=== PATIENT | female | born 1995 | race Caucasian/White ===

== ENCOUNTER 2021-11-21 15:27 | Outpatient (CLI) | payer OTHER, SELFPAY ==
[2021-11-21 17:06] LABS: Absolute Lymphocyte Count 2.11 X10^3/uL (0.83-4.51); Absolute Neutrophil Count 4.9 X10^3/uL (2.0-7.7); Basophil# 0.04 X10^3/uL; Basophil% 0.5 % (0-1); Eosinophils% 1.3 % (0-5); Hematocrit 40.3 % (37-47); Hemoglobin 13.4 g/dL (12.0-15.0); Lymphocyte # 2.11 X10^3/ul (0.83-4.51); Lymphocyte % 27.2 % (19-41); Mean Corp Hgb Conc 33.3 g/dL (32-36); Mean Corpuscular Hgb 28.6 pg (27.0-32.0); Mean Corpuscular Volume 85.9 fL (81-99); Monocyte# 0.59 X10^3/uL; Monocyte% 7.6 % (0-10); NRBC Flagged by Analyzer 0 % (0-5); Neutrophil # 4.91 X10^3/uL (2.7-7.7); Neutrophil % 63.1 % (47-70); Platelet Count 242 K/mm3 (150-450); RBC Distribution Width CV 12.1 % (11.6-14.6); RBC Distribution Width SD 37.5 fl (35.1-43.9); Red Blood Count 4.69 M/mm3 (4.2-5.4); White Blood Count 7.8 K/mm3 (4.4-11.0)
[2021-11-21 17:30] LABS: Color, Urine Yellow (Yellow); Glucose, Dipstick Normal (Normal); Ketone-Dipstick Negative (Negative); Leukocyte Esterase-Dipstick 500 /ul (Negative); Nitrite-Dipstick Negative (Negative); Occult Blood-Urine Negative /ul (Negative); Protein-Dipstick Negative (Negative); Urine Bilirubin Dipstick Negative (Negative); Urine Clarity Clear (Clear); Urine Urobilinogen Normal (Normal)
[2021-11-21 17:45] LABS: Thyroid Stim Hormone (TSH) 1.38 uIU/mL (0.358-3.74)
[2021-11-21 17:47] LABS: Amphetamine Urine VISTA NEGATIVE (<1000 ng/mL); Barbiturate Urine VISTA NEGATIVE (< 200 ng/mL); Benzodiazepine Urine VISTA NEGATIVE (< 200 ng/mL); Cocaine Urine VISTA NEGATIVE (< 300 ng/mL); Ecstacy Urine VISTA NEGATIVE (< 500 ng/mL); Methadone Urine VISTA NEGATIVE (< 300 ng/mL); PCP Urine VISTA NEGATIVE (< 25 ng/mL); THC Urine VISTA NEGATIVE (< 50 ng/mL); Vista UDS pH Range 7
[2021-11-22 08:46] LABS: HIV - WCH Non-Reactive (Nonreactive); Hepatitis B Surface Antigen Non-Reactive (Nonreactive); Hepatitis C Antibody Non-Reactive (Nonreactive); Rubella IgG Reactive (Nonreactive); Syphilis Antibodies Non-reactive
[2021-11-24 05:08] LABS: Chlamydia By Nucleic Acid AMP Negative (Negative)
[2021-11-24 08:13] LABS: Gonococcus By Nucleic Acid AMP Negative (Negative)
== END 2021-11-21 23:59 | disposition home or self-care (01) ==
LOC: WOBLAB 15:32
PROVIDERS: Visit Provider Obstetrics & Gynecology
DX: Z34.81 Encounter for supervision of other normal pregnancy, first trimester (principal)
CPT/HCPCS: 80307; 81002; 84443; 85025; 86703; 86762; 86780; 86803; 87086; 87088; 87340; 87491; 87591

== ENCOUNTER → 2022-03-27 | Outpatient (CLI) | payer OTHER, SELFPAY ==
[2022-03-27 15:39] LABS: Hematocrit 36.4 % (37-47); Hemoglobin 11.9 g/dL (12.0-15.0); Mean Corp Hgb Conc 32.7 g/dL (32-36); Mean Corpuscular Hgb 29.4 pg (27.0-32.0); Mean Corpuscular Volume 89.9 fL (81-99); Platelet Count 178 K/mm3 (150-450); RBC Distribution Width CV 13.3 % (11.6-14.6); RBC Distribution Width SD 43.7 fl (35.1-43.9); Red Blood Count 4.05 M/mm3 (4.2-5.4); White Blood Count 7.9 K/mm3 (4.4-11.0)
[2022-03-27 16:14] LABS: Glucose Challenge Gest 1H 50g 93 mg/dL (70-140)
== END | disposition home or self-care (01) ==
PROVIDERS: Visit Provider Student in an Organized Health Care Education/Training Program
DX: Z34.83 Encounter for supervision of other normal pregnancy, third trimester (principal)
CPT/HCPCS: 36415; 82950; 85027

== ENCOUNTER 2022-04-23 19:17 | Outpatient (CLI) | payer OTHER, SELFPAY ==
[2022-04-23 19:30] VITALS: TEMP 36.3
[2022-04-23 19:31] VITALS: BP 116/67; PULSE 73
[2022-04-23 19:49] VITALS: BMI 28.1
[2022-04-23] MEDS: Lactated Ringers 1,000 ML 999 ML IV (19:55)
[2022-04-23 20:20] LABS: Color, Urine Yellow (Yellow); Glucose, Dipstick Normal (Normal); Ketone-Dipstick Negative (Negative); Leukocyte Esterase-Dipstick 500 /ul (Negative); Nitrite-Dipstick Negative (Negative); Occult Blood-Urine 10 /ul (Negative); Protein-Dipstick Negative (Negative); Specific Gravity, Urine 1.005 (1.002-1.030); Urine Bilirubin Dipstick Negative (Negative); Urine Clarity Sl. Cloudy (Clear); Urine Urobilinogen Normal (Normal)
--- NOTE | 2022-04-23 20:52 | HP.PCM.OB_ITS ---
History and Physical Date of Admission: 04/23/22 HPI: 26-year-old G2, P1 at 30/6 weeks, PRANAY 06/26/2022 by 9-week ultrasound, presenting with cramping and low back and vaginal pain. Patient states she has been having Merrick Padilal contractions today throughout the day they have not been painful, just noticeable. Around 5 PM this evening patient started having sacral pain and vaginal burning. Worsened with movement. Burning is worse than back pain. Patient took Tylenol for Merrick Padilla around 1 PM, did not help. Denies leaking of fluid, vaginal bleeding. Reports movement. No vaginal discharge or itching. No urinary symptoms aside from increased frequency. Patient states she has been hydrating well today. 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 History of cold sore 2. History of UTI 3. General anxiety disorder Surgical history 1. Endoscopy 2019 2. Tonsillectomy and adenoidectomy Family history: Noncontributory Allergies: No known drug allergies Social history: Negative tobacco/alcohol/drug use Review of system: Negative otherwise stated above Physical exam: Vital signs: BP 116/67, pulse 73 General: Comfortable in bed, no acute distress HEENT: No cephalic/atraumatic Cardiorespiratory: No increased effort, regular heart rate Abdomen: Soft, nontender, gravid Extremities: No edema Cervical exam: Close/thick/high heart rate: 140/mod olman/+accel/no decel Mertzon: occasional UA positive for leukocyte esterase and occult blood. A/P: 26-year-old G2, P1 at 30/6 weeks, PRANAY 06/26/2022 by 9-week ultrasound, presenting with cramping and low back and vaginal pain. ?IV fluid hydrate with 1 L LR bolus, followed by 250 cc/h ? Pain control: Offered to Tylenol dosage versus Flexeril. Patient elects for Flexeril to help back pain as Tylenol did not help prior. ? Cervix is closed and thick. Irregular and rare contraction. Does not appear to be in labor at this time. ? Possible urinary tract infection. With patient's history will treat empirically at this time. Will send urine culture for confirmation. ? Continue to monitor. Will really evaluate 2 hours after Flexeril dose. Will reassess at that time. Likely musculoskeletal pain . However will monitor.
[2022-04-23] MEDS: Lactated Ringers 1,000 ML 250 ML IV (21:15)
[2022-04-23] MEDS: cycloBENZAPRine HCl 10 MG Tablet PO (21:25)
== END 2022-04-23 23:20 | disposition home or self-care (01) ==
LOC: WPOUT 19:21 → WP 19:21
PROVIDERS: Visit Provider Student in an Organized Health Care Education/Training Program
DX: O26.893 Other specified pregnancy related conditions, third trimester (principal); Z3A.30 30 weeks gestation of pregnancy; M54.50 Low back pain, unspecified; R10.2 Pelvic and perineal pain; Z87.440 Personal history of urinary (tract) infections
CPT/HCPCS: 96360; 96361 ×2; 59025; 59050; 81002; 87086; 87088; 99218; J7120; G0378

== ENCOUNTER → 2022-06-04 | Outpatient (CLI) | payer OTHER, SELFPAY | END | disposition home or self-care (01) | PROVIDERS: Visit Provider Student in an Organized Health Care Education/Training Program | DX: Z36.85 Encounter for antenatal screening for Streptococcus B (principal) | CPT/HCPCS: 87077; 87081; 87186 ==

== ENCOUNTER 2022-06-07 10:50 | Outpatient (CLI) | payer OTHER, SELFPAY ==
[2022-06-07] VITALS (32 sets, daily range): BP systolic 117; BP diastolic 69; PULSE 62–111; O2SAT 93–100; BMI 29.5
[2022-06-07] MEDS: Lactated Ringers 1,000 ML 999 ML IV (13:35)
[2022-06-07 13:49] LABS: Hematocrit 34.4 % (37-47); Hemoglobin 11.3 g/dL (12.0-15.0); Mean Corp Hgb Conc 32.8 g/dL (32-36); Mean Corpuscular Hgb 28.4 pg (27.0-32.0); Mean Corpuscular Volume 86.4 fL (81-99); Platelet Count 136 K/mm3 (150-450); RBC Distribution Width CV 13.3 % (11.6-14.6); RBC Distribution Width SD 41.1 fl (35.1-43.9); Red Blood Count 3.98 M/mm3 (4.2-5.4); White Blood Count 8.8 K/mm3 (4.4-11.0)
[2022-06-07] MEDS: Lactated Ringers 1,000 ML 150 ML IV (14:38)
[2022-06-07 16:07] LABS: ROM Internal Control Test YES-OK TO RESULT pt. (Internal QC); ROM Patient Test Negative (Negative)
--- NOTE | 2022-06-07 18:22 | OB.TRI.HP_ITS ---
HPI - General General Date of Admission: 06/07/22 HPI Narrative CINDY WAKEFIELD, is a 26 F who presents with contractions and leakage of fluid PFSH PFSH Home Medications [id number] 1 mg tablet 1 tab PO DAILY 04/23/22 [History Last Taken 04/22/22 08:00] Abreva 1 tube OTHER DAILY PRN Cold Sores 06/07/22 [History Last Taken Unknown] sertraline 50 mg tablet (Zoloft) 50 mg PO DAILY anxiety 06/07/22 [History Last Taken Unknown] valacyclovir 500 mg tablet 1,000 mg PO BID PRN Cold Sores 06/07/22 [History Last Taken Unknown] Allergy/AdvReac Type Severity Reaction Status Date / Time No Known Allergies Allergy Verified 04/23/22 19:50 NST FHR Rate Baby A Baseline: 150 Variability:: Moderate Accelerations:: 15 x 15 Decelerations:: None NST Reactive:: Yes Uterine Activity:: Few contractions Assessment & Plan (1) : PLAN: Patient with contractions, unchanged cervix. Leakage of fluid, ROM nega tive. IV fluids given. No signs of labor. Okay to discharge home
== END 2022-06-07 16:55 | disposition home or self-care (01) ==
LOC: WPOUT 10:54 → WP 10:54
PROVIDERS: Referring Provider Obstetrics & Gynecology; Visit Provider Obstetrics & Gynecology
DX: O47.9 False labor, unspecified (principal); Z3A.00 Weeks of gestation of pregnancy not specified
CPT/HCPCS: 96360; 96361 ×2; 36415; 59025; 59050; 84112; 85027; 86850; 86900; 86901; 99218; J7120; G0378

== ENCOUNTER 2022-06-09 06:45 | Outpatient (CLI) | payer OTHER, SELFPAY ==
[2022-06-09 06:54] VITALS: TEMP 36.4
[2022-06-09 06:58] VITALS: BP 121/73; PULSE 95
[2022-06-09 07:19] VITALS: BMI 29.5
--- NOTE | 2022-06-09 10:18 | OB.TRI.NOTE ---
HPI - General General Date of Admission: 06/09/22 HPI Narrative CINDY WAKEFIELD, is a 26 F who presents with contractions PFSH PFSH Home Medications [id number] 1 mg tablet 1 tab PO DAILY 04/23/22 [History Last Taken 04/22/22 08:00] Abreva 1 tube OTHER DAILY PRN Cold Sores 06/07/22 [History Last Taken Unknown] sertraline 50 mg tablet (Zoloft) 50 mg PO DAILY anxiety 06/07/22 [History Last Taken Unknown] valacyclovir 500 mg tablet 1,000 mg PO BID PRN Cold Sores 06/07/22 [History Last Taken Unknown] Allergy/AdvReac Type Severity Reaction Status Date / Time No Known Allergies Allergy Verified 06/09/22 07:21 Assessment & Plan (1) : PLAN: Patient with contractions, cervical exam no signs of labor. Patient desires discharge home. Okay to discharge home with precautions
[2022-06-09 18:38] VITALS: PULSE 103; O2SAT 98
== END 2022-06-09 07:50 | disposition home or self-care (01) ==
LOC: WPOUT 06:51 → WP 06:52
PROVIDERS: Referring Provider Student in an Organized Health Care Education/Training Program; Visit Provider Student in an Organized Health Care Education/Training Program
DX: O47.9 False labor, unspecified (principal); Z3A.00 Weeks of gestation of pregnancy not specified
CPT/HCPCS: 99218; G0378

== ENCOUNTER 2022-06-18 00:15 | Outpatient (CLI) | payer OTHER, SELFPAY ==
[2022-06-18 00:36] VITALS: PULSE 93; O2SAT 98
[2022-06-18 00:43] VITALS: BP 101/62; PULSE 86
--- NOTE | 2022-06-19 08:14 | PCM.PN.OB ---
Subjective Subjective Presenting for contractions. No leaking of fluid or vaginal bleeding. movement present. Objective Data Objective Data Vital Signs: Vital Signs Pulse BP Pulse Ox 86 101/62 98 06/18/22 00:43 06/18/22 00:43 06/18/22 00:36 Weight: 73.301 kg NST FHR Rate Baby A Baseline: 125 Variability:: Moderate Accelerations:: 15 x 15 Decelerations:: None NST Reactive:: Yes Assessment & Plan (1) : PLAN: Plan 26-year-old G2, P1 at 38/6 presenting with contractions. Cervix unchanged at 2 cm. NST reactive. Discharged home with labor precautions. Follow-up in office on Saturday.
== END 2022-06-18 03:21 | disposition home or self-care (01) ==
LOC: WPOUT 00:17 → WP 00:17
PROVIDERS: Visit Provider Student in an Organized Health Care Education/Training Program
DX: O47.1 False labor at or after 37 completed weeks of gestation (principal); Z3A.38 38 weeks gestation of pregnancy
CPT/HCPCS: 59025; 59050; 99218; G0378

== ENCOUNTER 2022-06-21 06:55 | Inpatient (IN) | payer OTHER, SELFPAY ==
[2022-06-21] VITALS (43 sets, daily range): BP systolic 105–162; BP diastolic 57–93; PULSE 46–110; TEMP 36.2–36.7; O2SAT 91–100; BMI 29.8
--- NOTE | 2022-06-21 07:21 | HP.PCM.OB_ITS ---
History and Physical Date of Admission: 06/21/22 HPI: 26-year-old G2, P1 at 39/2 weeks, PRANAY 06/26/2022 by first trimester ultrasound, admitted for term induction of labor. Reports contractions. Denies leaking of fluid, vaginal bleeding. Reports movement. Denies headache, vision changes, chest pain or shortness of breath, nausea or vomiting, diarrhea or constipation, fevers or chills. 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 Depression 2. Oral HSV Surgical history: 1. [place] tooth extraction 2017 Medications: 1. Zoloft 2. Valtrex as needed cold sore Social history: Denies tobacco, alcohol, drug use Allergies: Denies Family history: Noncontributory no history of blood clots or bleeding disorders Review of system: Negative otherwise stated above Physical exam: Vitals BP 117/70, HR 71, T 98.1F, O2sat 98%on RA General: No acute distress HEENT: Normal cephalic/atraumatic, PERRLA Cardiorespiratory: No increased effort Abdomen: Soft, nontender, gravid Extremities: Minimal pedal edema Neurologic: Cranial nerves II through XII grossly intact Musculoskeletal: Strength moves all extremities Cervical exam: 3 centimeters in office on Saturday labs: GBS positive O+ blood type HIV negative Hepatitis B/hepatitis C both negative Gonorrhea/chlamydia negative Rubella immune Syphilis negative Admission labs wnl Assessment/plan: 26-year-old G2, P1 at 39/2 weeks, PRANAY 06/26/2022 by first trimester ultrasound, admitted for term induction of labor. complicated by: Depression ?Admit to labor and delivery for induction of labor ? Induction of labor via Pitocin and AROM. ? GBS positive, will treat with penicillin ?epidural at any time if desired
[2022-06-21] MEDS: Lactated Ringers 1,000 ML 50 ML IV (07:30)
[2022-06-21 07:51] LABS: Absolute Lymphocyte Count 1.28 X10^3/uL (0.83-4.51); Absolute Neutrophil Count 4.3 X10^3/uL (2.0-7.7); Basophil# 0.02 X10^3/uL; Basophil% 0.3 % (0-1); Eosinophil# 0.09 X10^3/uL; Eosinophils% 1.4 % (0-5); Hematocrit 33.1 % (37-47); Hemoglobin 10.8 g/dL (12.0-15.0); Lymphocyte # 1.28 X10^3/ul (0.83-4.51); Lymphocyte % 20.5 % (19-41); Mean Corp Hgb Conc 32.6 g/dL (32-36); Mean Corpuscular Hgb 27.8 pg (27.0-32.0); Mean Corpuscular Volume 85.3 fL (81-99); Mean Platelet Vol. 12.7 fl (6.2-12.0); Monocyte# 0.54 X10^3/uL; Monocyte% 8.7 % (0-10); NRBC Flagged by Analyzer 0 % (0-5); Neutrophil # 4.29 X10^3/uL (2.7-7.7); Neutrophil % 68.8 % (47-70); Platelet Count 121 K/mm3 (150-450); RBC Distribution Width CV 13.5 % (11.6-14.6); RBC Distribution Width SD 40.7 fl (35.1-43.9); Red Blood Count 3.88 M/mm3 (4.2-5.4); White Blood Count 6.2 K/mm3 (4.4-11.0)
[2022-06-21] MEDS: Oxytocin 30 units/NS 500 ml 30 UNITS/500 ML IV.SOLN IV (08:38)
[2022-06-21] MEDS: Penicillin G 3,000,000 Units 50 ML 100 UNITS IV ×2 (12:09→16:53)
--- NOTE | 2022-06-21 12:33 | PCM.PN.OB ---
Subjective Subjective Patient feeling some contractions going natural Objective Data Objective Data Vital Signs: Vital Signs Temp Pulse BP Pulse Ox 97.2 F L 62 120/80 99 06/21/22 11:51 06/21/22 11:50 06/21/22 11:50 06/21/22 10:30 Weight: 163 lb Body Mass Index (BMI) 29.8 Intake & Output: Intake and Output for Last 24 Hours 06/19/22 06/20/22 06/21/22 23:59 23:59 23:59 Intake Total 111.4 / 111.4 Balance 111.4 / 111.4 Lab / Micro Data Result Diagrams: 06/21/22 07:25 Labs: Laboratory Results - last 24 hr 06/21/22 07:25: WBC 6.2, RBC 3.88 L, Hgb 10.8 L, Hct 33.1 L, MCV 85.3, MCH 27.8, MCHC 32.6, RDW Std Deviation 40.7, RDW Coeff of Devi 13.5, Plt Count 121 L, MPV 12.7 H, Immature Gran % (Auto) 0.300, Neut % (Auto) 68.8, Lymph % (Auto) 20.5, [place] % (Auto) 8.7, Eos % (Auto) 1.4, Baso % (Auto) 0.3, Absolute Neuts (auto) 4.3, Absolute Lymphs (auto) 1.28, Nucleated RBC % 0 06/21/22 07:25: Blood Type O POSITIVE, Antibody Screen NEGATIVE Micro: Microbiology 06/21/22 07:25 Nasal Secretion SARS-CoV-2 Antigen (Rapid) - Final Physical Exam Const alert, oriented x3, no apparent distress, average body habitus, healthy appearing and well nourished HEENT normocephalic and moist oral mucous membranes Eyes PERRL Neck full ROM Resp normal respiratory effort, no retractions and no use of accessory muscles Narrative: Cervical exam 60/-3. AROM clear fluid Extremity normal to inspection and no clubbing, cyanosis or edema Skin no rashes or lesions noted and no wounds Neuro moves all extremities and no focal motor deficits Psych mental status grossly normal, affect normal, speech normal and activity/motor behavior normal Assessment & Plan (1) : PLAN: Patient seen and examined. AROM clear fluid. Continue to titrate Pitocin
[2022-06-21] MEDS: LACTATED RINGERS 500 ML 999 ML IV (15:42)
[2022-06-21] MEDS: fentaNYL 100 MCG/2 ML Ampul IV (16:14)
[2022-06-21] MEDS: Lactated Ringers 1,000 ML 200 ML IV (16:18)
[2022-06-21] MEDS: fentaNYL-bupivacaine (epidural) 100 ML BAG EPIDURAL (16:52)
[2022-06-21] MEDS: Oxytocin 30 units/NS 500 ml 30 UNITS/500 ML IV.SOLN 334 UNITS IV (17:40)
--- NOTE | 2022-06-21 18:00 | EX.PCM.OBRPT ---
Vaginal Delivery Findings Description of Procedure: Preop diagnosis: Term Postop diagnosis: Term, shoulder dystocia Procedure: Vaginal delivery and resolution of shoulder dystocia Surgeon: Jeremy Diana Anesthesia: Epidural EBL: 250 cc Specimen: Cord gases Complications: See below Findings: Delivery of a viable female , vertex TAI APGARs 7/9. Found to have shoulder dystocia; Victoria attempted, suprapubic pressure attempted, ultimately resolved with Wood's corkscrew. Time interval from diagnosis of shoulder dystocia to complete shoulder delivery was 15 seconds. No perineal lacerations noted. seen and examined could move both upper extremities after delivery. No palpable clavicular or humerus fractures. Procedure: After head spontaneous delivered with maternal pushing initial gentle traction was used to deliver anterior shoulder (left shoulder) with no success. Shoulder dystocia was immediately diagnosed. Medical team and patient were notified of diagnosis including angle furnaceman. Assist for help was called to the room. Patient's lower extremities were placed in a hyperflexed and abducted position with 1 nurse on each side holding the legs(Victoria). Patient was instructed to give strong pushing after with contractions. Gentle traction on head applying suprapubic pressure on the shoulder attempting to dislodge the shoulder from the pubic symphysis. With no success the maneuver was stopped. A decision was made to try vaginal maneuvers. Right hand was inserted into the posterior aspect of the vagina and attempt was made to dislodge the impacted anterior shoulder by rotating the posterior shoulder counterclockwise (Yip maneuver). Anterior shoulder was then delivered without difficulty. Time interval from diagnosis of shoulder dystocia to complete shoulder delivery was 15 seconds. Cord was clamped and cut. The infant was handed off to angle furnaceman. Placenta was delivered via cord traction and fundal massage. Cord gases were collected. IV oxytocin was initiated in order to facilitate uterine contractions. The fundus was felt to be firm following the delivery of the placenta. The cervix, vagina and perineum were thoroughly inspected. No lacerations were noted. The was carefully examined after initial resuscitation, APGARs 7/9. Infant was able to move both arms without apparent weakness. There is no palpable fracture of clavicle or humerus. The patient tolerated the procedure well. The management of shoulder dystocia was reviewed with the patient and her . Complications associated with shoulder dystocia including possible future recurrence, were also discussed with them. All questions were answered.
[2022-06-21] MEDS: Acetaminophen 500 MG Tablet 1000 MG PO (19:36)
[2022-06-22] VITALS (11 sets, daily range): BP systolic 105–126; BP diastolic 55–73; PULSE 61–75; RESP 16–18; TEMP 36.3–36.4; O2SAT 97–99
[2022-06-22] MEDS: Acetaminophen 500 MG Tablet 1000 MG PO ×2 (03:48→10:20)
[2022-06-22] MEDS: Ibuprofen 600 MG Tablet PO (08:15)
[2022-06-22] MEDS: Sertraline 50 MG Tablet PO (08:16)
--- NOTE | 2022-06-22 08:27 | DCINST_ITS ---
Discharge Instructions Diet Discharge Diet: No restrictions Activity Discharge Activity: Return to Normal Activity, May Drive and May Shower May resume sexual activity in: 4-6 weeks Weight Bearing Status: Weight bearing as tolerated Dressing / Incision Call your doctor if your incision/area has: Continuous Slow Oozing and Foul Smelling Discharge Call your doctor if you observe: Fever of 101 or Higher, Shortness of breath and Chest pain Follow Up Care Please Follow Up With: Jeremy Diana MD When: 4 to 6 weeks Test Results: Test results from this visit will be discussed in further detail at your follow- up appointment, if applicable. Discharge Plan Admission Admit Date/Time: 06/21/22 06:55 Attending Provider: Jeremy Diana Primary Care Provider: DEBBIE MULLIGAN Discharge Orders/Prescriptions Prescriptions: No Action 1 mg Tablet 1 tab PO DAILY sertraline [Zoloft] 50 mg Tablet 50 mg PO DAILY Abreva 1 tube OTHER DAILY PRN (Reason: Cold Sores) valacyclovir 500 mg Tablet 1,000 mg PO BID PRN (Reason: Cold Sores) Referrals / Follow Up: DEBBIE MULLIGAN [Other] Disposition Discharge Orders: Discharge Patient (Routine); Ordered 06/22/22 Ordered By: Dr. Jeremy Diana
--- NOTE | 2022-06-22 08:27 | PCM.PN.OB ---
Subjective Subjective No overnight complaints. Pain well controlled Objective Data Objective Data Vital Signs: Vital Signs Temp Pulse Resp BP Pulse Ox O2 Del Method 97.5 F L 75 16 124/73 H 98 Room Air 06/22/22 07:45 06/22/22 07:51 06/22/22 07:45 06/22/22 07:46 06/22/22 07:51 06/22/22 07:55 Oxygen Delivery Method Room Air Weight: 163 lb Body Mass Index (BMI) 29.8 Intake & Output: Intake and Output for Last 24 Hours 06/20/22 06/21/22 06/22/22 23:59 23:59 23:59 Intake Total 1945. Balance Lab / Micro Data Result Diagrams: 06/21/22 07:25 Labs: Laboratory Results - last 24 hr 06/21/22 07:25: Blood Type O POSITIVE, Antibody Screen NEGATIVE Micro: Microbiology 06/21/22 07:25 Nasal Secretion SARS-CoV-2 Antigen (Rapid) - Final Physical Exam Const alert, oriented x3, no apparent distress, average body habitus, healthy appearing and well nourished HEENT normocephalic and moist oral mucous membranes Eyes PERRL Neck full ROM Resp normal respiratory effort, no retractions and no use of accessory muscles GI GI Narrative: Soft, nontender, uterus firm and below umbilicus Extremity normal to inspection, full ROM and no clubbing, cyanosis or edema Neuro moves all extremities, no focal motor deficits and no sensory deficits noted Psych mental status grossly normal, affect normal, speech normal and activity/motor behavior normal Assessment & Plan (1) Vaginal delivery: PLAN: day 1. Breast-feeding. Pain well controlled. Desires discharge home, if okay with medical front desk coordinator okay to discharge home today
--- NOTE | 2022-06-22 15:42 | NURSING ---
student charting reviewed by STEFANI Galarza, instructor
--- NOTE | 2022-06-22 16:45 | CASEMGMT ---
SW Note Referral Source: [facility] SW Referral Reason: History of Depression SW met with RN Светлана. She voiced no concerns regarding the nb and MOB/FOB. SW introduced self and role to MOB and FOB. MOB gave consent for FOB to be in the room during the interview. NB was in the bassinet sleeping. MOB appeared bonded to the nb. 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 [place] came into the [facility] to meet the nb. Housing: MOB, FOEvaristo and their 2 children reside in a house in [facility]. FOB and MOB's father and brother farm together. Transportation:MATTEO voices that she has access and availability to transportation Supplies: MATTEO reports she has a bedside sleeper, crib, carseat, diapers and clothes for the nb. Supports: MATTEO said that her primary support is the FOB. MOB said that her parents reside 1 mile away. FOB parents reside 20 minutes away and MATTEO's siblings are local. Education: MATTEO graduated from high school. Bachelors Degree in Nursing from [employer]. 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 MOB stated that she plans to take 11 weeks off. MATTEO said that while she works the FOB or her mother will care for the nb and older child, Suyapa. 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 Agency Involvement: Patient reports no JFS, WIC, HMG, Legal or CSB involvement. Patient said that she previously has been at [facility] in the past for counseling. FOB: [place] Time Together: 5 years Involved with the NB: yes FOEvaristo is employed as a st with MATTEO's father and brother FOEvaristo has another child, Suyapa, with MOB FOB denied any MH/AOD/Domestic Violence history Maternal Mental Health History: MATTEO reports that 6 months after her older child was born she was feeling down and went to counseling and that was helpful to her but they decided she needed medication. MATTEO has been on Zoloft during the and reports it does well to assist her symptoms. MATTEO said Dr. Sadie Diana prescribes her medication. MOB reports no past SI/HI or current SI/HI. MOB reports no past psych hospitalization. MOB's chart notes patient reported to RN no history of SI/HI or DV and patient's PHQ9 score was 0. MOB plans to continue to take Zoloft. She also advised that she could benefit from counseling again but it is difficult with time. MOB feels comfortable with counselor and SW acknowledged that it is good that MOB feels comfortable to go back to counseling when needed. MOB and FOB were educated on PPD. MOB and FOB educated on Shaken Baby Syndrome and Back to sleep. Per chart MOB has no past or current drug, alcohol or tobacco use. SW provided MOB with resources on post depression support. MOB and FOB inquired about WIC and SW made on line referral for WIC. MATTEO reports that her first delivery was traumatic as she had the nb at [facility] in [place] and they did not have policies and procedures in place. MOB voiced that this delivery has been positive. Plan: Home at discharge. Referral to WIC made. Shweta CHARLES
== END 2022-06-22 19:00 | disposition home or self-care (01) | DRG 806 ==
PROVIDERS: Student in an Organized Health Care Education/Training Program; Admitting Provider Obstetrics & Gynecology; Referring Provider Obstetrics & Gynecology; Visit Provider Obstetrics & Gynecology
DX: O66.0 Obstructed labor due to shoulder dystocia (principal); Z37.0 Single live birth; O98.82 Other maternal infectious and parasitic diseases complicating childbirth; O99.344 Other mental disorders complicating childbirth; F32.A Depression, unspecified; Z3A.39 39 weeks gestation of pregnancy; B95.1 Streptococcus, group B, as the cause of diseases classified elsewhere
CPT/HCPCS: 59025; 59050; 85025; 86850; 86900; 86901; 87426; 99218; J7120; G0378

== ENCOUNTER → 2022-08-01 | Outpatient (CLI) | payer OTHER, SELFPAY ==
[2022-08-01 12:42] LABS: T4 Free Direct 0.84 ng/dL (0.76-1.46); Thyroid Stim Hormone (TSH) 1.19 uIU/mL (0.358-3.74)
== END | disposition home or self-care (01) ==
PROVIDERS: Visit Provider Student in an Organized Health Care Education/Training Program
DX: Z39.2 Encounter for routine postpartum follow-up (principal)
CPT/HCPCS: 36415; 84439; 84443

== ENCOUNTER → 2023-06-24 | Outpatient (CLI) | payer BC, SELFPAY ==
[2023-06-24 09:51] LABS: Absolute Lymphocyte Count 1.76 X10^3/uL (0.83-4.51); Absolute Neutrophil Count 3.7 X10^3/uL (2.0-7.7); Basophil# 0.04 X10^3/uL; Basophil% 0.7 % (0-1); Eosinophil# 0.16 X10^3/uL; Eosinophils% 2.6 % (0-5); Hematocrit 37.7 % (37-47); Hemoglobin 12.3 g/dL (12.0-15.0); Lymphocyte # 1.76 X10^3/ul (0.83-4.51); Mean Corp Hgb Conc 32.6 g/dL (32-36); Mean Corpuscular Hgb 28.5 pg (27.0-32.0); Mean Corpuscular Volume 87.3 fL (81-99); Mean Platelet Vol. 10.3 fl (6.2-12.0); Monocyte% 6.6 % (0-10); NRBC Flagged by Analyzer 0 % (0-5); Neutrophil # 3.67 X10^3/uL (2.7-7.7); Neutrophil % 60.6 % (47-70); Platelet Count 219 K/mm3 (150-450); RBC Distribution Width CV 12.5 % (11.6-14.6); RBC Distribution Width SD 39.6 fl (35.1-43.9); Red Blood Count 4.32 M/mm3 (4.2-5.4); White Blood Count 6.1 K/mm3 (4.4-11.0)
[2023-06-24 10:51] LABS: HIV - WCH Non-Reactive (Nonreactive); Hepatitis B Surface Antigen Non-Reactive (Nonreactive); Hepatitis C Antibody Non-Reactive (Nonreactive); Rubella IgG Reactive (Nonreactive); Syphilis Antibodies Non-reactive
[2023-06-25 21:07] LABS: Chlamydia By Nucleic Acid AMP Negative (Negative); Gonococcus By Nucleic Acid AMP Negative (Negative)
[2023-06-28 16:42] LABS: HPV Reflexed? NOT INDICATED
== END | disposition home or self-care (01) ==
PROVIDERS: Referring Provider Obstetrics & Gynecology; Visit Provider Obstetrics & Gynecology
DX: Z34.90 Encounter for supervision of normal pregnancy, unspecified, unspecified trimester (principal)
CPT/HCPCS: 36415; 85025; 86703; 86762; 86780; 86803; 86850; 86900; 86901; 87086; 87340; 87491; 87591; 88175; G0145

== ENCOUNTER → 2023-09-11 | Outpatient (CLI) | payer BC, SELFPAY ==
--- NOTE | 2023-09-11 14:28 | US_ITS ---
EXAM: US SECOND OR THIRD TRIMESTER , TRANSABDOMINAL CLINICAL INDICATION: anatomy scan TECHNIQUE: Transabdominal obstetrical ultrasound of the maternal pelvis and a second or third trimester with image documentation. COMPARISON: No relevant prior studies available. FINDINGS: FETUS: Single intrauterine gestation. HEART RATE: 152 bpm. PRESENTATION: Cephalic presentation. PLACENTA: Placenta is anterior without placenta previa. AMNIOTIC FLUID: Amniotic fluid volume qualitatively appears normal. Deepest vertical pocket is 5.2 cm. ANATOMY: The lateral ventricles, choroid plexus, cerebellum, cisterna magna, face/nose/lips, four-chamber heart, diaphragm, stomach, abdominal wall, cord insertion, three-vessel cord, kidneys, bladder, entire spine, and extremities were visualized and appeared unremarkable. BIOMETRICS GESTATIONAL AGE: Composite gestational age is 19 weeks 3 days. PRANAY: 01/25/2024. EFW: Estimated weight is 292 g. BPD: 19 weeks 2 days. HC: 19 weeks 2 days. AC: 19 weeks 4 days. FL: 19 weeks 2 days. MATERNAL: UTERUS: Unremarkable. No myometrial mass. CERVIX: Unremarkable as visualized. The cervix is closed. ADNEXA: Unremarkable. No adnexal masses. FREE FLUID: None. OTHER FINDINGS: CI is 75% which is normal. FL/AC ratio is 21% which is normal. HC/AC is 1.17 which is normal. US/OB Anatomy Scan IMPRESSION: Single live intrauterine at 19 weeks and 3 days. No specific abnormality identified. Electronically Signed: Parmjit Roy MD at 23:30 [facility] ,
== END | disposition home or self-care (01) ==
PROVIDERS: Referring Provider Advanced Practice Midwife; Visit Provider Advanced Practice Midwife
DX: O09.90 Supervision of high risk pregnancy, unspecified, unspecified trimester (principal); Z3A.00 Weeks of gestation of pregnancy not specified
CPT/HCPCS: 76805

== ENCOUNTER → 2023-10-17 | Outpatient (CLI) | payer MEDICAID, SELFPAY ==
--- OUTSIDE RECORDS SUMMARY | 2023-10-17 09:33 | XMS RPT_ITS | CCD ---
Author Name Unknown Address [facility] [address] [place] [address] Organization [facility] Care Team Providers Care Cylinder Worker Name Role Phone Mady Farrell Primary Care Provider LIZET THOMAS Attending Unavailable MADY FARRELL Primary Care Unavailable MADY FARRELL Attending Unavailable MADY FARRELL Primary Care Unavailable DANIELA MATHIS Attending Unavailable Love Barnhart Attending Unavailable Love Barnhart Admitting Unavailable No Doctor Assigned, Nodr Primary Care Unavail able No Doctor Assigned, Nodr Primary Care Unavail able Love Barnhart Consulting Unavailable Bo Weir Admitting Unavailable Bo Weir Attending Unavailable Parmjit Enrique Primary Care Provider Parmjit Enrique Primary Care Provider Parmjit Enrique MD Primary Care Provider Parmjit Enrique MD Primary Care Provider [phone] Allergies Allergy Classification Reported Allergen(s) Allergy Type Date of Onset Reaction(s) Facility (1 source) No Known Medication Allergies; Translations: [No Known Medication Allergies] Propensity to adverse reactions to drug (disorder) [facility] Repository Medications Current Medications Medication Drug Class(es) Dates Sig (Normalized) Sig (Original) acetaminophen 325 mg oral tablet (20 sources) Start: 11-24-2020 acetaminophen (TYLENOL) tablet 650 mg Completed/Discontinued Medications Medication Drug Class(es) Dates Sig (Normalized) Sig (Original) acetaminophen 325 mg / HYDROcodone bitartrate 5 mg oral tablet (6 sources) Opioid Agonist Start: 04-28-2020 End: 06-30-2020 take 1-2 tablets by mouth every four hours as needed hydroCODone-acetami nophen 5-325 MG tablet Indications: Post-op pain Take 1-2 tablets by mouth every 4 hours as needed for up to 7 days. 25 tablet 0 04/28/2020 06/30/2020 Discontinued (Therapy completed) Problems Active Problems Problem Classification Problem Date Documented Da te Episodic/Chronic Abdominal pain (1 source) Epigastric pain; Translations: [Epigastric pain] Onset: 12-15-2018 Episodic Anxiety disorders (11 sources) Anxiety; Translations: [Anxiety disorder, unspecified] Onset: 02-02-2021 Chronic Coagulation and hemorrhagic disorders (2 sources) Blood coagulation disorder; 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] Onset: 06-14-2020 06-14-2020 Chronic distress and abnormal forces of labor (1 source) Finding of uterine contractions; Translations: [Other uterine inertia] Episodic Genitourinary symptoms and ill-defined conditions (1 source) Dysuria; Translations: [Dysuria] Episodic Headache; including migraine (1 source) Status migrainosus; Translations: [Migraine with status migrainosus, not intractable, unspecified migraine type] Chronic Headache; including migraine (1 source) Headache; Translations: [ headache in third trimester] Episodic Malposition; malpresentation (2 sources) Uncertain lie; Translations: [Maternal care for unstable lie, not applicable or unspecified] Episodic Menstrual disorders (1 source) Missed period; Translations: [Missed period] Chronic Mood disorders (1 source) Dysthymia; Translations: [Dysthymic disorder] Chronic Other complications of (2 sources) High risk ; Translations: [High-risk , young primigravida in third trimester] Episodic Other complications of (2 sources) Anxiety in ; Translations: [Anxiety in , antepartum] Other connective tissue disease (1 source) Ganglion cyst; Translations: [Ganglion cyst] Episodic Other connective tissue disease (3 sources) Ganglion cyst of right wrist; Translations: [Ganglion cyst of wrist, right] Other infections; including parasitic (1 source) H/O: viral illness; Translations: [Hx of cold sores] Episodic Other nervous system disorders (1 source) Postoperative pain ; Translations: [Post-op pain] Episodic Other nervous system disorders (1 source) H/O: migraine; Translations: [H/O migraine during ] Episodic Other and delivery including normal (8 sources) Normal ; Translations: [Encounter for supervision of normal first , third trimester] Onset: 02-12-2021 Episodic Other skin disorders (1 source) Alopecia; Translations: [Alopecia] Episodic Other upper respiratory disease (2 sources) Deviated nasal septum; Translations: [Nasal septal deviation] Onset: 08-21-2018 08-21-2018 Episodic Residual codes; unclassified (1 source) Past history of procedure; Translations: [S/P excision of ganglion cyst] Episodic Residual codes; unclassified (2 sources) Gestation period, 10 weeks; Translations: [10 weeks gestation of ] Episodic Residual codes; unclassified (1 source) Gestation period, 6 weeks; Translations: [6 weeks gestation of ] Episodic Residual codes; unclassified (1 source) Gestation period, 11 weeks; Translations: [11 weeks gestation of ] Episodic Residual codes; unclassified (2 sources) Gestation period, 20 weeks; Translations: [20 weeks gestation of ] Episodic Residual codes; unclassified (2 sources) Gestation period, 28 weeks; Translations: [28 weeks gestation of ] Episodic Residual codes; unclassified (1 source) Gestation period, 30 weeks; Translations: [30 weeks gestation of ] Episodic Residual codes; unclassified (1 source) Gestation period, 23 weeks; Translations: [23 weeks gestation of ] Episodic Residual codes; unclassified (1 source) Gestation period, 36 weeks; Translations: [36 weeks gestation of ] Episodic Residual codes; unclassified (1 source) Gestation period, 37 weeks; Translations: [37 weeks gestation of ] Episodic Residual codes; unclassified (1 source) Gestation period, 16 weeks; Translations: [16 weeks gestation of ] Unclassified (6 sources) Patient encounter status; Translations: [Well adult exam] Onset: 08-21-2018 08-21-2018 Unclassified (1 source) Cancer cervix screening status; Translations: [Screening for cervical cancer] Past or Other Problems Problem Classification Problem Date Documented Date Episodic/Chronic Contraceptive and procreative management (1 source) Oral contraception; Translations: [Encounter for surveillance of contraceptive pills] Episodic Other complications of (8 sources) Streptococcus agalactiae infection; Translations: [Other maternal infectious and parasitic diseases complicating , unspecified trimester] Onset: 02-02-2021 Resolved: 03-27-2021 1 Episodic Other upper respiratory disease (2 sources) Deviated nasal septum; Translations: [Deviated nasal septum] Onset: 08-21-2018 Episodic Residual codes; unclassified (20 sources) Family history of diseases of the blood and blood-forming organs and certain disorders involving the immune mechanism; Translations: [Family history of blood coagulation disorder] Onset: 06-24-2020 06-24-2020 Episodic Skin and subcutaneous tissue infections (4 sources) Impetigo; Translations: [Impetigo, unspecified] Onset: 08-21-2018 08-21-2018 Episodic Viral infection (4 sources) Herpesviral gingivostomatitis and pharyngotonsillitis; Translations: [Oral herpes simplex infection] Onset: 08-21-2018 08-21-2018 Episodic Results Test Name Value Interpretation Reference Range Facil ity Vital Signs Date Time Vital Sign Value Performing Clinician Facility 08-24-2021 10:51-0500 Body height 157.5 cm Parmjit Enrique MD Work Phone: [facility] 08-24-2021 10:51-0500 Body mass index (BMI) [Ratio] 26.08 kg/m2 Parmjit Enrique MD Work Phone: [facility] 08-24-2021 10:51-0500 Body temperature 97.11 [degF] Parmjit Enrique MD Work Phone: [facility] 08-24-2021 10:51-0500 Body weight 64.68 kg Parmjit Enrique MD Work Phone: [facility] 08-24-2021 10:51-0500 Diastolic blood pressure 62 mm[Hg] Parmjit Enrique MD Work Phone: [facility] 08-24-2021 10:51-0500 Heart rate 98 /min Parmjit Enrique MD Work Phone: [facility] 08-24-2021 10:51-0500 SaO2% (BldA) [Mass fraction] 98 % Parmjit Enrique MD Work Phone: [facility] 08-24-2021 10:51-0500 Systolic blood pressure 114 mm[Hg] Parmjit Enrique MD Work Phone: [facility] 02-26-2021 23:03-0400 Diastolic blood pressure 60 mm[Hg] Sagar Rodriguez MD Work Phone: [facility] 02-26-2021 23:03-0400 Heart rate 84 /min Sagar Rodriguez MD Work Phone: [facility] 02-26-2021 23:03-0400 Respiratory rate 18 /min Sagar Rodriguez MD Work Phone: [facility] 02-26-2021 23:03-0400 SaO2% (BldA) [Mass fraction] 98 % Sagar Rodriguez MD Work Phone: [facility] 02-26-2021 23:03-0400 Systolic blood pressure 110 mm[Hg] Sagar Rodriguez MD Work Phone: [facility] 02-26-2021 21:46-0400 Body height 157.5 cm Sagar Rodriguez MD Work Phone: [facility] 02-26-2021 21:46-0400 Body mass index (BMI) [Ratio] 25.4 kg/m2 Sagar Rodriguez MD Work Phone: [facility] 02-26-2021 21:46-0400 Body weight 63 kg Sagar Rodriguez MD Work Phone: [facility] 02-26-2021 21:45-0400 Body temperature 99.7 [degF] Sagar Rodriguez MD Work Phone: [facility] 02-08-2021 23:05-0400 Heart rate 104 /min Nehal Flower MD Work Phone: [facility] 02-08-2021 23:05-0400 SaO2% (BldA) [Mass fraction] 97 % Nehal Flower MD Work Phone: [facility] 02-08-2021 22:48-0400 Body temperature 98.6 [degF] Nehal Flower MD Work Phone: [facility] 02-08-2021 22:48-0400 Diastolic blood pressure 69 mm[Hg] Nehal Flower MD Work Phone: [facility] 02-08-2021 22:48-0400 Respiratory rate 16 /min Nehal Flower MD Work Phone: [facility] 02-08-2021 22:48-0400 Systolic blood pressure 110 mm[Hg] Nehal Flower MD Work Phone: [facility] 02-07-2021 10:06-0400 Body height 157.5 cm Mady Amor MD Work Phone: [facility] 02-07-2021 10:06-0400 Body mass index (BMI) [Ratio] 29.37 kg/m2 Mady Amor MD Work Phone: [facility] 02-07-2021 10:06-0400 Body temperature 98.2 [degF] Mady Amor MD Work Phone: [facility] 02-07-2021 10:06-0400 Body weight 72.85 kg Mady Amor MD Work Phone: [facility] 02-07-2021 10:06-0400 Diastolic blood pressure 72 mm[Hg] Mady Amor MD Work Phone: [facility] 02-07-2021 10:06-0400 Systolic blood pressure 112 mm[Hg] Mady Amor MD Work Phone: [facility] 02-06-2021 23:29-0400 Body temperature 96.6 [degF] Nehal Flower MD Work Phone: [facility] 02-06-2021 23:29-0400 Diastolic blood pressure 67 mm[Hg] Nehal Flower MD Work Phone: [facility] 02-06-2021 23:29-0400 Heart rate 83 /min Nehal Flower MD Work Phone: [facility] 02-06-2021 23:29-0400 Respiratory rate 16 /min Nehal Flower MD Work Phone: [facility] 02-06-2021 23:29-0400 SaO2% (BldA) [Mass fraction] 98 % Nehal Flower MD Work Phone: [facility] 02-06-2021 23:29-0400 Systolic blood pressure 117 mm[Hg] Nehal Flower MD Work Phone: [facility] 02-06-2021 22:15-0400 Body height 157.5 cm Nehal Flower MD Work Phone: [facility] 02-06-2021 22:15-0400 Body mass index (BMI) [Ratio] 29.15 kg/m2 Nehal Flower MD Work Phone: [facility] 02-06-2021 22:15-0400 Body weight 72.3 kg Nehal Flower MD Work Phone: [facility] 02-02-2021 13:21-0400 Body height 157.5 cm Rosita Chacon APRN-ATIYA Work Phone: [facility] 02-02-2021 13:21-0400 Body mass index (BMI) [Ratio] 29.26 kg/m2 Rosita Chacon APRN-ATIYA Work Phone: [facility] 02-02-2021 13:21-0400 Body temperature 97.5 [degF] Rosita Chacno APRN-ATIYA Work Phone: [facility] 02-02-2021 13:21-0400 Body weight 72.58 kg Rosita Chacon APRN-ATIYA Work Phone: [facility] 02-02-2021 13:21-0400 Diastolic blood pressure 64 mm[Hg] Rosita Chacon APRN-ATIYA Work Phone: [facility] 02-02-2021 13:21-0400 Systolic blood pressure 118 mm[Hg] Rosita Chacon APRN-ATIYA Work Phone: [facility] 01-26-2021 08:21-0400 Body height 157.5 cm Mady Amor MD Work Phone: [facility] 01-26-2021 08:21-0400 Body mass index (BMI) [Ratio] 29.45 kg/m2 Mady Amor MD Work Phone: [facility] 01-26-2021 08:21-0400 Body temperature 97.5 [degF] Mady Amor MD Work Phone: [facility] 01-26-2021 08:21-0400 Body weight 73.03 kg Mady Amor MD Work Phone: [facility] 01-26-2021 08:21-0400 Diastolic blood pressure 66 mm[Hg] Mady Amor MD Work Phone: [facility] 01-26-2021 08:21-0400 Systolic blood pressure 110 mm[Hg] Mady Amor MD Work Phone: [facility] 01-12-2021 08:43-0400 BMI (Body Mass Index) 28.31 kg/m2 [facility] 01-12-2021 08:43-0400 Body Temperature 98.1 [degF] [facility] 01-12-2021 08:43-0400 Body weight 70.22 kg [facility] 01-12-2021 08:43-0400 BP Diastolic 62 mm[Hg] [facility] 01-12-2021 08:43-0400 BP Systolic 120 mm[Hg] [facility] 01-12-2021 08:43-0400 Height 157.5 cm [facility] 12-26-2020 13:18-0400 BMI (Body Mass Index) 27.51 kg/m2 [facility] 12-26-2020 13:18-0400 Body Temperature 98.4 [degF] [facility] [employer] [facility] 12-26-2020 13:18-0400 Body weight 68.22 kg [facility] 12-26-2020 13:18-0400 BP Diastolic 62 mm[Hg] [facility] 12-26-2020 13:18-0400 BP Systolic 120 mm[Hg] [facility] 12-26-2020 13:18-0400 Height 157.5 cm [facility] 12-12-2020 08:56-0500 BMI (Body Mass Index) 27.44 kg/m2 [facility] 12-12-2020 08:56-0500 Body Temperature 97.39 [degF] [facility] 12-12-2020 08:56-0500 Body weight 68.04 kg [facility] 12-12-2020 08:56-0500 BP Diastolic 60 mm[Hg] [facility] 12-12-2020 08:56-0500 BP Systolic 100 mm[Hg] [facility] 12-12-2020 08:56-0500 Height 157.5 cm [facility] 11-28-2020 08:18-0500 BMI (Body Mass Index) 27.07 kg/m2 [facility] 11-28-2020 08:18-0500 Body Temperature 96.6 [degF] [facility] 11-28-2020 08:18-0500 Body weight 67.13 kg [facility] 11-28-2020 08:18-0500 BP Diastolic 64 mm[Hg] [facility] 11-28-2020 08:18-0500 BP Systolic 110 mm[Hg] [facility] 11-28-2020 08:18-0500 Height 157.5 cm [facility] 11-24-2020 23:45-0500 BP Diastolic 52 mm[Hg] [facility] 11-24-2020 23:45-0500 BP Systolic 105 mm[Hg] [facility] 11-24-2020 23:45-0500 Pulse (Heart Rate) 79 /min [facility] 11-24-2020 23:45-0500 Pulse Oximetry 96 % [facility] 11-24-2020 21:39-0500 Body Temperature 98.2 [degF] [facility] 11-24-2020 21:39-0500 Height 157.5 cm [facility] 11-24-2020 21:39-0500 Respiratory Rate 18 /min [facility] 10-24-2020 10:31-0500 BMI (Body Mass Index) 25.79 kg/m2 [facility] 10-24-2020 10:31-0500 Body Temperature 97.3 [degF] [facility] 10-24-2020 10:31-0500 Body weight 63.96 kg [facility] 10-24-2020 10:31-0500 BP Diastolic 70 mm[Hg] [facility] 10-24-2020 10:31-0500 BP Systolic 104 mm[Hg] [facility] 10-24-2020 10:31-0500 Height 157.5 cm [facility] 10-03-2020 09:54-0500 BMI (Body Mass Index) 25.97 kg/m2 [facility] 10-03-2020 09:54-0500 Body Temperature 96.4 [degF] [facility] 10-03-2020 09:54-0500 Body weight 64.41 kg [facility] 10-03-2020 09:54-0500 BP Diastolic 60 mm[Hg] [facility] 10-03-2020 09:54-0500 BP Systolic 104 mm[Hg] [facility] 10-03-2020 09:54-0500 Height 157.5 cm [facility] 09-05-2020 14:32-0500 BMI (Body Mass Index) 25.24 kg/m2 [facility] 09-05-2020 14:32-0500 Body Temperature 97.39 [degF] [facility] 09-05-2020 14:32-0500 Body weight 62.6 kg [facility] 09-05-2020 14:32-0500 BP Diastolic 58 mm[Hg] [facility] 09-05-2020 14:32-0500 BP Systolic 102 mm[Hg] [facility] 09-05-2020 14:32-0500 Height 157.5 cm [facility] 08-01-2020 07:39-0400 BMI (Body Mass Index) 25.24 kg/m2 [facility] 08-01-2020 07:39-0400 Body Temperature 97 [degF] [facility] 08-01-2020 07:39-0400 Body weight 62.6 kg [facility] 08-01-2020 07:39-0400 BP Diastolic 56 mm[Hg] [facility] 08-01-2020 07:39-0400 BP Systolic 108 mm[Hg] [facility] 08-01-2020 07:39-0400 Height 157.5 cm [facility] 06-30-2020 16:53-0400 Body surface area Derived from formula 1.62 m2 [facility] 06-30-2020 08:03-0400 BMI (Body Mass Index) 24.87 kg/m2 [facility] 06-30-2020 08:03-0400 Body Temperature 97.81 [degF] [facility] 06-30-2020 08:03-0400 Body weight 61.69 kg [facility] 06-30-2020 08:03-0400 BP Diastolic 58 mm[Hg] [facility] 06-30-2020 08:03-0400 BP Systolic 110 mm[Hg] [facility] 06-30-2020 08:03-0400 Height 157.5 cm [facility] 06-24-2020 13:55-0400 BMI (Body Mass Index) 24.69 kg/m2 Av[facility] Myrna Gal [id number] [facility] 06-24-2020 13:55-0400 Body Temperature 98.01 [degF] [facility] Myrna Gal [id number] [facility] 06-24-2020 13:55-0400 Body weight 61.24 kg Avg Myrna Gal [id number] [facility] 06-24-2020 13:55-0400 BP Diastolic 60 mm[Hg] [facility] Myrna Gal [id number] [facility] 06-24-2020 13:55-0400 BP Systolic 100 mm[Hg] Av[facility] Myrna Gal [id number] [facility] 06-24-2020 13:55-0400 Height 157.5 cm Avg Myrna Gal [id number] [facility] 06-14-2020 11:01-0400 BMI (Body Mass Index) 25.06 kg/m2 Av[facility] Myrna Gal [id number] [facility] 06-14-2020 11:01-0400 Body Temperature 99.19 [degF] Avg Myrna Gal [id number] [facility] 06-14-2020 11:01-0400 Body weight 62.14 kg Avg Myrna Gal [id number] [facility] 06-14-2020 11:01-0400 BP Diastolic 58 mm[Hg] Avg Myrna Gal [id number] [facility] 06-14-2020 11:01-0400 BP Systolic 100 mm[Hg] Avg Myrna Gal [id number] [facility] 06-14-2020 11:01-0400 Height 157.5 cm Avg Myrna Gal [id number] [facility] 05-12-2020 10:36-0400 BMI (Body Mass Index) 24.87 kg/m2 [facility] 05-12-2020 10:36-0400 Body Temperature 97.59 [degF] [facility] 05-12-2020 10:36-0400 Body weight 61.69 kg [facility] 05-12-2020 10:36-0400 Height 157.5 cm [facility] 04-28-2020 09:56-0400 BP Diastolic 66 mm[Hg] [facility] 04-28-2020 09:56-0400 BP Systolic 108 mm[Hg] [facility] 04-28-2020 09:56-0400 Pulse (Heart Rate) 70 /min [facility] 04-28-2020 09:56-0400 Pulse Oximetry 99 % [facility] 04-28-2020 09:56-0400 Respiratory Rate 16 /min [facility] 04-28-2020 09:25-0400 Body Temperature 98.1 [degF] [facility] 04-28-2020 06:31-0400 BMI (Body Mass Index) 24.87 kg/m2 [facility] 04-28-2020 06:31-0400 Body weight 61.69 kg [facility] 04-28-2020 06:31-0400 Height 157.5 cm [facility] 04-07-2020 15:32-0400 BMI (Body Mass Index) 24.95 kg/m2 [facility] 04-07-2020 15:32-0400 Body Temperature 98.1 [degF] [facility] 04-07-2020 15:32-0400 Body weight 61.87 kg [facility] 04-07-2020 15:32-0400 Height 157.5 cm [facility] 03-10-2020 10:09-0400 BMI (Body Mass Index) 25.42 kg/m2 [facility] 03-10-2020 10:09-0400 Body Temperature 97.11 [degF] [facility] 03-10-2020 10:09-0400 Body weight 63.05 kg [facility] 03-10-2020 10:09-0400 Height 157.5 cm [facility] 02-04-2020 09:50-0400 BMI (Body Mass Index) 25.02 kg/m2 [facility] 02-04-2020 09:50-0400 Body Temperature 99.1 [degF] [facility] 02-04-2020 09:50-0400 Body weight 62.05 kg [facility] 02-04-2020 09:50-0400 BP Diastolic 62 mm[Hg] Pramjit [facility] 02-04-2020 09:50-0400 BP Systolic 116 mm[Hg] Parmjit [facility] 02-04-2020 09:50-0400 Height 157.5 cm [facility] 02-04-2020 09:50-0400 Pulse (Heart Rate) 69 /min [facility] 02-04-2020 09:50-0400 Pulse Oximetry 99 % [facility] 02-01-2020 10:50-0400 BMI (Body Mass Index) 24.69 kg/m2 [facility] 02-01-2020 10:50-0400 Body Temperature 98.4 [degF] [facility] 02-01-2020 10:50-0400 Body weight 61.24 kg [facility] 02-01-2020 10:50-0400 BP Diastolic 68 mm[Hg] [facility] 02-01-2020 10:50-0400 BP Systolic 106 mm[Hg] [facility] 02-01-2020 10:50-0400 Height 157.5 cm [facility] 08-21-2018 12:49-0500 BMI (Body Mass Index) 22.86 kg/m2 [facility] 08-21-2018 12:49-0500 Body Temperature 98.29 [degF] [facility] 08-21-2018 12:49-0500 BP Diastolic 78 mm[Hg] [facility] 08-21-2018 12:49-0500 BP Systolic 116 mm[Hg] [facility] 08-21-2018 12:49-0500 Height 157.5 cm Mady [facility] 08-21-2018 12:49-0500 Pulse (Heart Rate) 76 /min [facility] 08-21-2018 12:49-0500 Pulse Oximetry 99 % Mady [facility] 08-21-2018 12:49-0500 Respiratory Rate 16 /min [facility] 08-21-2018 12:49-0500 Weight 56.7 kg Mady Farrell [facility] Encounters Encounter Date Encounter Type Care Provider Facility Start: 11-17-2021 End: 11-17-2021 Office outpatient visit 15 minutes Parmjit Enrique MD Work Phone: [facility] Procedures Date Procedure Procedure Detail Performing Clinician Start: 02-26-2021 Culture bacterial quanttative colony count urine Sagar Rodriguez MD Work Phone: Start: 02-26-2021 Urinalysis, reagent strip without microscopy Sagar Rodriguez MD Work Phone: Start: 02-08-2021 Eval c/v amniotic fluid protein qual ea specimen Nehal Flower MD Work Phone: Start: 02-08-2021 End: 02-08-2021 Smr prim src wet mount nfct agt Nehal Flower MD Work Phone: Start: 02-08-2021 RAPID TOX SCREEN WITH RELEX TO DRUG Nehal Flower MD Work Phone: Start: 02-08-2021 Urinalysis, reagent strip without microscopy Nehal Flower MD Work Phone: Start: 02-07-2021 nonstress test Mady Amor MD Work Phone: Start: 02-06-2021 RAPID TOX SCREEN WITH RELEX TO DRUG Nehal Flower MD Work Phone: Start: 02-06-2021 Urinalysis microscopic only Nehal mattson MD Work Phone: Start: 02-06-2021 Urinalysis, reagent strip without microscopy Nehal Flower MD Work Phone: Start: 01-26-2021 Iadna respiratry probe & rev trnscr 3-5 targets Mady Amor MD Work Phone: Start: 11-28-2020 Complete blood count with white cell differential, automated Ami L Jeison Work Phone: Start: 11-28-2020 GLUCOSE POST LOADING Ami L Jeison Work Phone: Start: 11-28-2020 Syphilis test non-treponemal antibody qual Ami L Hay Work Phone: Start: 11-24-2020 Complete blood count with white cell differential, automated Bartolo Dahiya Work Phone: Start: 11-24-2020 Comprehensive metabolic panel Bartolo paulino Work Phone: Start: 11-24-2020 CT of entire head Bartolo Zheng Work Phone: Start: 11-24-2020 Culture bacterial quanttative colony count urine Bartolo Zheng Work Phone: Start: 11-24-2020 Urinalysis microscopic only Bartolo gay Work Phone: Start: 11-24-2020 Urinalysis, reagent strip without microscopy Bartolo Zheng Work Phone: Start: 11-24-2020 Gluc bld gluc mntr dev cleared fda spec home use Bartolo Zheng Work Phone: Start: 10-24-2020 Narrative [Interpretation] Study observation general US Ami L Hay Work Phone: Start: 06-30-2020 Narrative [Interpretation] Study observation general US Mady Cy Amor Work Phone: Start: 06-24-2020 Culture bacterial quanttative colony count urine Mady Amor Work Phone: Start: 06-24-2020 Urine drug screening Mady Amor Work Phone: Start: 06-24-2020 Blood typing serologic abo Mady Amor Work Phone: Start: 06-24-2020 Antibody screen Mady Amor Work Phone: Start: 06-24-2020 Iaad ia hepatitis b surface antigen Mady Amor Work Phone: Start: 06-24-2020 Antibody rubella Mady Amor Work Phone: Start: 06-24-2020 Antibody varicella-zoster Mady Amor Work Phone: Start: 06-24-2020 Complete blood count with white cell differential, automated Mady Amor Work Phone: Start: 06-24-2020 Syphilis test non-treponemal antibody qual Mady Amor Work Phone: Start: 06-14-2020 Choriogonadotropin ( test) [Presence] in Urine Mady Amor Work Phone: Start: 04-28-2020 ORDERS (SCAN) Historical Provider Start: 04-28-2020 PRE OP CHECKLIST Historical Provider Start: 04-28-2020 End: 04-28-2020 Exc fabby/vasc mal sft tiss hand/fngr subq <1.5cm Gerri Asia Kurt Work Phone: Start: 04-28-2020 Iadna nos amplified probe tq each organism Tyrell Mccloud Work Phone: Start: 04-28-2020 Choriogonadotropin ( test) [Presence] in Urine Tyrell Mccloud Work Phone: Start: 02-01-2020 PAP IG, CT-NG, RFX HPV [facility] Sandra Mchugh Work Phone: Plan of Treatment Date Care Activity Detail Author Start: 12-12-2030 Tetanus vaccination TETANUS [facility] Start: 05-21-2022 Tetanus vaccination TETANUS EVERY 10 YR [facility] Start: 02-08-2022 GONORRHEA SCREEN GONORRHEA SCREEN [facility] Start: 02-08-2022 Screening for Chlamy galo trachomatis CHLAMYDIA SCREEN [facility] Start: 06-30-2021 GONORRHEA SCREEN GONORRHEA SCREEN [facility] Start: 06-30-2021 Screening for Chlamy galo trachomatis CHLAMYDIA SCREEN [facility] Start: 06-07-2021 Influenza vaccination INFLUENZ A VACCINE (Season Ended) [facility] Start: 02-09-2021 End: 02-09-2021 Follow-up encounter 02/09/2021 Follow Up Visit CREAM GATHERER Raymon Madera MD [address] [place] [address] [facility] CREAM GATHERER Start: 02-02-2021 End: 02-02-2022 US OB LIMITED/MARGOTH [facility] Immunizations Immunization Date Immunization Notes Care Provider Fa cility 12-12-2020 diphtheria, tetanus toxoids and acellular pertussis vaccine, unspecified formulation [facility] 12-12-2020 tetanus toxoid, redu amish diphtheria toxoid, and acellular pertussis vaccine, adsorbed; Translations: [TDAP VACCINE >10YO 0.5ML IM] [facility] 12-25-2017 varicella virus vaccine [facility] 07-09-2017 meningococcal ACWY v accine, unspecified formulation [facility] 07-09-2017 varicella virus vaccine [facility] 04-08-2013 hepatitis A vaccine, pediatric/adolescent dosage, 2 dose schedule [facility] 05-21-2012 hepatitis A vaccine, pediatric/adolescent dosage, 2 dose schedule [facility] 05-21-2012 meningococcal ACWY v accine, unspecified formulation [facility] 05-21-2012 tetanus toxoid, redu amish diphtheria toxoid, and acellular pertussis vaccine, adsorbed [facility] 06-02-2003 diphtheria, tetanus toxoids and acellular pertussis vaccine [facility] 06-02-2003 poliovirus vaccine, inactivated [facility] 06-04-2001 diphtheria, tetanus toxoids and acellular pertussis vaccine [facility] 05-08-2000 haemophilus influenz ae type b vaccine, conjugate unspecified formulation [facility] 05-08-2000 measles, mumps and r ubella virus vaccine [facility] 01-15-2000 diphtheria, tetanus toxoids and acellular pertussis vaccine [facility] 01-15-2000 haemophilus influenz ae type b vaccine, conjugate unspecified formulation [facility] 01-15-2000 hepatitis B vaccine, pediatric or pediatric/adolescent dosage [facility] 01-15-2000 poliovirus vaccine, inactivated [facility] 09-20-1999 diphtheria, tetanus toxoids and acellular pertussis vaccine [facility] 09-20-1999 measles, mumps and r ubella virus vaccine [facility] 09-20-1999 poliovirus vaccine, inactivated [facility] 06-01-1998 diphtheria, tetanus toxoids and acellular pertussis vaccine [facility] 06-01-1998 haemophilus influenz ae type b vaccine, conjugate unspecified formulation [facility] 06-01-1998 hepatitis B vaccine, pediatric or pediatric/adolescent dosage Mady Farrell [facility] 06-01-1998 poliovirus vaccine, inactivated Mady Jami [facility] 1997 hepatitis B vaccine, pediatric or pediatric/adolescent dosage Mady [facility] Payers Date Payer Category Payer Unknown [facility] xxxxxxxxxxxx 2020-Present xxxxxxxxxxxx [id number] 2020 Unknown [id number] 2018 Self-pay 2018 Unknown 2017 Unknown [id number] 1997 Unknown [id number] 1997 Unknown [id number] 1997 Unknown [id number] 1997 Unknown [id number] 1997 Unknown [id number] Unknown COMMERCIAL COMME RCIAL MISCELLANEOUS Effective for all dates xxxxxx [id number] Social History Date Type Detail Facility Start: 11-09-2018 End: 02-01-2020 Tobacco smoking status UTIS Never smoker [facility] Start: 08-12-2018 Alcohol Comment wine-occassions [facility] Start: 1995 Sex Assigned At Not on file [facility] Start: 02-01-2020 End: 02-04-2020 Alcohol intake Current drinker of alcohol (finding) [facility] Start: 02-04-2020 End: 10-24-2020 History SDOH Alcohol Std Drinks 1 [facility] Start: 02-04-2020 History SDOH Alcohol Binge 5 [facility] Start: 02-01-2020 Alcohol Comment occ [facility] Exposure to SARS-CoV -2 (event) Not sure [facility] Start: 02-01-2020 End: 03-10-2020 Tobacco use and exposure Never used [facility] Start: 04-04-2020 End: 10-24-2020 History SDOH Alcohol Frequency 4 [facility] Start: 04-04-2020 End: 10-24-2020 History SDOH Alcohol Binge 99 [facility] Exposure to SARS-CoV -2 (event) Yes [facility] Start: 04-28-2020 End: 10-24-2020 History SDOH IPV Fear 2 [facility] Start: 06-14-2020 End: 08-24-2021 Alcohol intake Ex-drinker (finding) [facility] Start: 06-14-2020 End: 10-24-2020 History SDOH Social Connections Living 3 [facility] Start: 04-29-2020 [facility] Clinical Notes 01-26-2021 to 11-17-2021 Parmjit Enrique MD - 11/17/2021 10:50 AM Robert Enrique MD - 08/24/2021 10:30 AM Sagar Rodriguez MD - 02/26/2021 10:02 PM Isabel Lopez RN - 02/08/2021 10:45 PM EDT Note Date & Type Note Facility 11-17-2021 History of Presen t illness Narrative Follow Up Visit Nayeli Hernandez [id number] 1995 11/17/2021 Chief Complaint Patient presents with Anxiety History of Present Illness: Nayeli Hernandez is a 26 y.o. female presenting for follow up of Pt here for a follow up: Pt was started on zoloft due to anxiety issues; while on the zoloft she had some really bad lows; has been in [facility] for counseling (needs a referral sent there to help pay for these visits); moving recently has increased her stress, she is now again and causing some more stress; she is having 1-2 panic attacks a week that will last for 1-2 hours History: Past Medical History: Diagnosis Date Encounter for induction of labor 02/12/2021 GERD (gastroesophageal reflux disease) Group B streptococcal infection in 02/02/2021 Past Surgical History: Procedure Laterality Date EXCISION SOFT TISSUE FINGER HAND Right 04/28/2020 Laterality: Right; Surgeon: Gerri Hicks MD; Location: [facility] EGD DIAGNOSTIC 2019 WISDOM TEETH EXTRACTION Family History Problem Relation Age of Onset Hypertension Mother Clotting Disorder Mother Breast Cancer Maternal Aunt Breast Cancer Maternal Grandmother Hypertension Maternal Grandmother Other - Specify Sister H/O GDM Social History Socioeconomic History Marital status: Spouse name: Tom Number of children: Not on file Years of education: Not on file Highest education level: Not on file Occupational History Not on file Tobacco Use Smoking status: Never Smoker Smokeless tobacco: Never Used Vaping Use Vaping Use: Never used Substance and Sexual Activity Alcohol use: Not Currently Comment: occ Drug use: Never Sexual activity: Yes Partners: Male control/protection: None Other Topics Concern Service Not Asked Blood Transfusions Not Asked Caffeine Concern Not Asked Occupational Exposure Not Asked Hobby Hazards Not Asked Sleep Concern Not Asked Stress Concern Not Asked Weight Concern Not Asked Special Diet Not Asked Back Care Not Asked Exercise Not Asked Bike Helmet Not Asked Seat Belt Not Asked Domestic Violence Not Asked Social History Narrative Not on file Social Determinants of Health Financial Resource Strain: Not on file Food Insecurity: Not on file Transportation Needs: Not on file Physical Activity: Not on file Stress: Not on file Social Connections: Not on file Intimate Partner Violence: Not on file Housing Stability: Not on file Social History Tobacco Use Smoking Status Never Smoker Smokeless Tobacco Never Used Social History Substance and Sexual Activity Alcohol Use Not Currently Comment: occ Social History Substance and Sexual Activity Drug Use Never Allergies: Patient has no known allergies. Home Medications: Current Outpatient Medications: acetaminophen 325 MG tablet, Take 325 mg by mouth every 4 hours as needed., Disp: , Rfl: calcium carbonate 500 MG Chew Tab tablet, Chew 500 mg daily as needed. , Disp: , Rfl: docosanol (Abreva) 10 % Cream cream, Apply 1 Application topically 5 times daily., Disp: 2 g, Rfl: 11 ergocalciferol 1.25 MG (51609 UT) capsule, Take 50,000 Units by mouth once a week., Disp: , Rfl: loratadine (Claritin) 10 MG tablet, Take 1 tablet by mouth daily., Disp: 90 tablet, Rfl: 1 Vit-Fe Fumarate-FA ( 1 PLUS 1 PO), Take by mouth daily. , Disp: , Rfl: sertraline 25 MG tablet, Take 2 tablets by mouth daily., Disp: 60 tablet, Rfl: 11 valacyclovir 1 g tablet, Take 2 tablets by mouth 2 times daily., Disp: 4 tablet, Rfl: 11 ROS: Review of Systems Constitutional: Negative for chills, fatigue and fever. Respiratory: Negative for cough and shortness of breath. Cardiovascular: Negative for chest pain and palpitations. Physical Examination: Vital Signs: Smoking Status Never Smoker Physical Exam Constitutional: Appearance: Normal appearance. Neurological: General: No focal deficit present. Mental Status: She is alert and oriented to person, place, and time. Procedure none Laboratory and Additional Data Reviewed: Results for orders placed or performed in visit on 05/29/21 [facility] 1 - NASOPHARYNGEAL Specimen: NASOPHARYNGEAL; Fluid/Swab Result Value Ref Range SARS COV 2 RNA, QL REAL TIME RT PCR NOT DETECTED NOT DETECTED NARRATIVE -1 This test was performed using isothermal JIMMY and has been approved as Emergency Use Authorization (EUA) for the qualitative detection [id number] nucleic acid. No images are attached to the encounter. Assessment and Plan: Nayeli Hernandez is a 26 y.o. female that presents for follow up for Call the office for any questions or concerns. I did have discussion that if any medications are not covered or is not able to get the medications to call the office and let us know so other alternative/arrangements can be made. Nayeli was seen today for anxiety. Diagnoses and all orders for this visit: Anxiety disorder, unspecified type Comments: consider vistaril prn Orders: - AMB REFERRAL TO BEHAVIORAL HEALTH Dysthymia - AMB REFERRAL TO BEHAVIORAL HEALTH Parmjit Enrique MD documented in this encounter [facility] 08-24-2021 History of Presen t illness Narrative SUBJECTIVE: 25 y.o. female for annual checkup. Current Outpatient Medications Medication Sig Dispense Refill acetaminophen 325 MG tablet Take 325 mg by mouth every 4 hours as needed. calcium carbonate 500 MG Chew Tab tablet Chew 500 mg daily as needed. docosanol (Abreva) 10 % Cream cream Apply 1 Application topically 5 times daily. 2 g 11 ergocalciferol 1.25 MG (11352 UT) capsule Take 50,000 Units by mouth once a week. loratadine (Claritin) 10 MG tablet Take 1 tablet by mouth daily. 90 tablet 1 Vit-Fe Fumarate-FA ( 1 PLUS 1 PO) Take by mouth daily. sertraline 25 MG tablet Take 2 tablets by mouth daily. 60 tablet 11 valacyclovir 1 g tablet Take 2 tablets by mouth 2 times daily. 4 tablet 11 No current facility-administered medications for this visit. Allergies: Patient has no known allergies. No LMP recorded. (Menstrual status: ). ROS: Feeling well. No dyspnea or chest pain on exertion. No abdominal pain, change in bowel habits, black or bloody stools. No urinary tract symptoms. 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 No neurological complaints. OBJECTIVE: The patient appears well, alert, oriented x 3, in no distress. BP 114/62 (BP Location: Left arm, BP Position: Sitting) Pulse 98 Temp 97.1 F (36.2 C) (Temporal) Ht 1.575 m (5' 2 ) Wt 64.7 kg (142 lb 9.6 oz) SpO2 98% BMI 26.08 kg/m Smoking Status Never Smoker ENT normal. Neck supple. No adenopathy or thyromegaly. ELISHA. Lungs are clear, good air entry, no wheezes, rhonchi or rales. S1 and S2 normal, no murmurs, regular rate and rhythm. Abdomen soft without tenderness, guarding, mass or organomegaly. Extremities show no edema, normal peripheral pulses. Neurological is normal, no focal findings. BREAST EXAM: not examined PELVIC EXAM: exam declined by the patient ASSESSMENT: well woman PLAN: return annually or prn documented in this encounter [facility] 02-26-2021 Emergency departm ent Note Emergency Department Report [facility] EMERGENCY DEPARTMENT Service Date:.02/26/21 PCP: Parmjit Enrique Chief Complaint: Chief Complaint Patient presents with Fever 2 weeks Urinary Pain with frequency HPI Nayeli Hernandez is a 25 y.o. female presents to the ED today due to urinary frequency and fever. The patient's had urinary pain for last 24 hours. She had a fever to .102. Denies nausea vomiting chest pain stress of breath cough back pain flank pain rash or vaginal bleeding. She's had moderate lochia which is decreasing. She's had no abdominal pains and no right-sided upper quadrant right upper quadrant pain Review of Systems: Review of Systems Constitutional: Positive for fever. Negative for activity change, appetite change and fatigue. HENT: Negative for ear pain, hearing loss, rhinorrhea, sneezing and trouble swallowing. Eyes: Negative for photophobia, pain, redness and visual disturbance. Respiratory: Negative for chest tightness, shortness of breath and wheezing. Cardiovascular: Negative for chest pain, palpitations and leg swelling. Gastrointestinal: Negative for abdominal pain, anal bleeding, diarrhea and nausea. Endocrine: Negative for polydipsia, polyphagia and polyuria. Genitourinary: Positive for urgency. Negative for difficulty urinating, flank pain and hematuria. Musculoskeletal: Negative for back pain, joint swelling, neck pain and neck stiffness. Skin: Negative for color change, pallor and rash. Allergic/Immunologic: Negative for environmental allergies and immunocompromised state. Neurological: Negative for dizziness, seizures, syncope, weakness, numbness and headaches. Hematological: Negative for adenopathy. Does not bruise/bleed easily. Psychiatric/Behavioral: Negative for behavioral problems, confusion, dysphoric mood, hallucinations and self-injury. The patient is not nervous/anxious. Past Medical History: Past Medical History: Diagnosis Date GERD (gastroesophageal reflux disease) Past Surgical History: Past Surgical History: Procedure Laterality Date EXCISION SOFT TISSUE FINGER HAND Right 04/28/2020 Laterality: Right; Surgeon: Gerri Hicks MD; Location: [facility] OR EGD DIAGNOSTIC 2019 WISDOM TEETH EXTRACTION Allergies: No Known Allergies Medications: Patient's Medications New Prescriptions CEPHALEXIN 500 MG CAPSULE Take 1 capsule by mouth every 12 hours for 7 days. Previous Medications ACETAMINOPHEN 325 MG TABLET Take 325 mg by mouth every 4 hours as needed. CALCIUM CARBONATE 500 MG CHEW TAB TABLET Chew 500 mg daily as needed. DOCOSANOL (ABREVA) 10 % CREAM CREAM Apply 1 Application topically 5 times daily. IBUPROFEN 800 MG TABLET Take 1 tablet by mouth every 6 hours as needed for Mild Pain. LORATADINE (CLARITIN) 10 MG TABLET Take 1 tablet by mouth daily. NORETHINDRONE (ORTHO MICRONOR) 0.35 MG TABLET Take 1 tablet by mouth daily. VIT-FE FUMARATE-FA ( 1 PLUS 1 PO) Take by mouth daily. SERTRALINE 25 MG TABLET Take 1 tablet by mouth daily. VALACYCLOVIR 1 G TABLET Take 2 tablets by mouth 2 times daily. WITCH DOTTIE-GLYCERIN PADS Apply 1 Application topically as needed. Modified Medications No medications on file Discontinued Medications No medications on file Family History: Family History Problem Relation Age of Onset Hypertension Mother Clotting Disorder Mother Breast Cancer Maternal Aunt Breast Cancer Maternal Grandmother Hypertension Maternal Grandmother Other - Specify Sister H/O GDM Social History: Social History Socioeconomic History Marital status: Spouse name: Tom Number of children: Not on file Years of education: Not on file Highest education level: Not on file Occupational History Not on file Tobacco Use Smoking status: Never Smoker Smokeless tobacco: Never Used Vaping Use Vaping Use: Never used Substance and Sexual Activity Alcohol use: Not Currently Comment: occ Drug use: Never Sexual activity: Yes Partners: Male control/protection: None Other Topics Concern Service Not Asked Blood Transfusions Not Asked Caffeine Concern Not Asked Occupational Exposure Not Asked Hobby Hazards Not Asked Sleep Concern Not Asked Stress Concern Not Asked Weight Concern Not Asked Special Diet Not Asked Back Care Not Asked Exercise Not Asked Bike Helmet Not Asked Seat Belt Not Asked Domestic Violence Not Asked Social History Narrative Not on file Social Determinants of Health Financial Resource Strain: Difficulty of Paying Living Expenses: Food Insecurity: Worried About Running Out of Food in the Last Year: Ran Out of Food in the Last Year: Transportation Needs: Lack of Transportation (Medical): Lack of Transportation (Non-Medical): Physical Activity: Days of Exercise per Week: Minutes of Exercise per Session: Stress: Feeling of Stress : Social Connections: Unknown Frequency of Communication with Friends and Family: Three times a week Frequency of Social Gatherings with Friends and Family: Three times a week Attends Cheondoism Services: Not on file Active Member of Clubs or Organizations: Not on file Attends Club or Organization Meetings: Not on file Marital Status: Intimate Partner Violence: Not At Risk Fear of Current or Ex-Partner: No Emotionally Abused: No Physically Abused: No Sexually Abused: No Physical Exam: Physical Exam Vital Signs During ED Visit Patient Vitals for the past 24 hrs: BP Temp Temp src Pulse Resp SpO2 Height Weight 05/23/21 2146 1.575 m (5' 2 ) 63 kg (138 lb 14.2 oz) 02/26/21 214 114/64 99.7 F (37.6 C) Oral 83 18 96 % Orders/Results: Orders Placed This Encounter URINE CULTURE cephALEXin 500 MG capsule URINALYSIS, MACRO URINE MICROSCOPIC Results for orders placed or performed during the hospital encounter of 02/26/21 URINALYSIS, MACRO Result Value Ref Range COLOR, URINE YELLOW YELLOW APPEARANCE, URINE CLEAR CLEAR SPECIFIC GRAVITY, URINE >1.030 (H) 1.010 - 1.025 PH URINE 5.5 5.0 - 7.0 PROTEIN, URINE NEGATIVE NEGATIVE mg/dl GLUCOSE, URINE NEGATIVE NEGATIVE mg/dl KETONES, URINE TRACE (A) NEGATIVE mg/dl BILIRUBIN, URINE NEGATIVE NEGATIVE BLOOD, URINE DIPSTICK SMALL (A) NEGATIVE NITRITES, URINE NEGATIVE NEGATIVE UROBILINOGEN, URINE 0.2 0.2 - 1.0 E.U./dL LEUKOCYTE ESTERASE, URINE SMALL (A) NEGATIVE URINE MICROSCOPIC Result Value Ref Range WBC, URINE 1 TO 5 NEGATIVE /HPF RBC, URINE 1 TO 5 NEGATIVE /HPF Epithelial Cells UA 1 TO 5 /HPF Mucus NEGATIVE NEGATIVE BACTERIA, URINE NEGATIVE NEGATIVE CRYSTALS, URINE NONE NONE CASTS, URINE NONE NONE /LPF COMMENT, URINE REFLEX CULTURE PER ESTABLISHED CRITERIA. Radiographic Imaging No orders to display Moderate Sedation Procedure: No Procedures: Procedures ED Summary/MDM Patient and urinalysis sent.. UA shows small leukocytes macro is equivocal so at this point given her history of group B strep and recent delivery and some dysuria Keflex for short course. Refer back to primary care and return if worse Clinical Impression: 1. Dysuria No follow-ups on file. New Prescriptions CEPHALEXIN 500 MG CAPSULE Take 1 capsule by mouth every 12 hours for 7 days. Discontinued Medications No medications on file An After Visit Summary was printed and given to the patient with above information. . . Sagar Rodriguez MD 02/26/21 [id number] documented in this encounter [facility] 02-09-2021 Miscellaneous Notes Patient given discharge instructions. Questions encouraged and answered. Education provided. Patient verbalizes understanding. Denies any needs. Patient ambulated off unit to home with significant other. This nurse called back to let Dr. Flower know Category 1 tracing. Alright to discharge patient. Have patient follow up tomorrow with Dr. Amor. This nurse called Dr. Flower to give update on patient. Patient 38 weeks and 3 days today. Patient a who came in with the complaint of leaking fluid. Urine and tox results given. Amnisure, nitrazine, and fern colleted. All negative. Patient's SVE 0.5 cm/10-20%/-4 station. Unchanged from previous assessments done before. Patient gracie. Infant hard to trace. arrhythmia heard on monitor. Dr. Flower assessed strip. Informed Dr. Flower patient positioned on side and infant now tracing better with no arrhthymia heard. Dr. Flower said to monitor patient for another hour and have patient follow up tomorrow in office with Dr. Amor. documented in this encounter [facility] 02-08-2021 History of Presen t illness Narrative Pt arrives on unit 38+3, c/o leaking of fluid since about 1730 this evening, pt also reports ctx q 2-3 mins x 2 days. +FM denies VB. Pt denies complications with this but does report GBS+ status. Monitors placed, VS obtained, SVE, and swabs obtained. documented in this encounter [facility] 02-07-2021 History of Presen t illness Narrative [facility] 25 y.o. at 38w2d Anxiety, GBS+ -VB, -LOF, -Ctx, +FM She reports painful contractions since yesterday. She is now having back pain, as well. Today: Cervix closed - IOL scheduled for 1899 on 02/12/21 starting with cervical ripening. No future appointments. documented in this encounter [facility] 02-07-2021 Procedure note Associated Order(s): VT NON-STRESS TEST Procedure(s): VT NON-STRESS TEST Pre-Procedure Diagnose(s): Uterine contractions during Post-Procedure Diagnose(s): Uterine contractions during Non-stress Test Gestational age: 38w2d Indication: Rule out labor Baseline: 135 bpm 15x15s: present Variability: moderate Decelerations: absent Contractions: q1-2min Duration >20 minutes Comments: REACTIVE 02/07/21 Mady Amor MD documented in this encounter [facility] 02-06-2021 Miscellaneous Notes Patient ambulatory off of floor. Discharge instructions given to patient, instructed to rest and drink plenty of water, return to unit or call OB with any changes, states understanding. Dr Flower called and informed of patient on floor, informed of complaint, GA, G/P, contractions every 2 to 5 minutes, mild, unchanged cervical exam x 2 checks. All labs reviewed, and FHR tracing reviewed, order received to discharge home with labor precautions. Patient arrives to floor with complaints of contractions q3 minutes since 1930, patient taken to room 203, asked to change into a gown and provide a urine sample. documented in this encounter [facility] 02-06-2021 Hospital Discharg e Karla Camacho RN - 02/06/2021 Horatio Padilla Contractions: Care Instructions Your Care Instructions Horatio Padilla contractions prepare your uterus for labor. Think of them as a warm-up exercise that your body does. You may begin to feel them between the 28th and 30th weeks of your . But they start as early as the 20th week. Horatio Padilla contractions usually occur more often during the ninth month. They may go away when you are active and return when you rest. These contractions are like mild contractions of true labor, but they occur less often. (You feel fewer than 8 in an hour.) They don't cause your cervix to open. It may be hard for you to tell the difference between Horatio Padilla contractions and true labor, especially in your first . Follow-up care is a diane part of your treatment and safety. Be sure to make and go to all appointments, and call your doctor if you are having problems. It's also a good idea to know your test results and keep a list of the medicines you take. How can you care for yourself at home? Try a warm bath to help relieve muscle tension and reduce pain. Change positions every 30 minutes. Take breaks if you must sit for a long time. Get up and walk around. Drink plenty of water. Taking short walks may help you feel better. Your doctor needs to check any contractions that are getting stronger or closer together. Where can you learn more? Go to [email or web address]. Enter Z402 in the search box to learn more about 'Christian Padilla Contractions: Care Instructions.' Interested in seeing a video go to [email or web address] to see all video content. Current as of: July 14, 2020 Content Version: . [employer]. Care instructions adapted under license by your healthcare professional. If you have questions about a medical condition or this instruction, always ask your healthcare professional. [employer] disclaims any warranty or liability for your use of this information. Early Stage of Labor at Home: Care Instructions Overview If you came to the hospital while in early labor, your doctor may ask you to labor at home until your contractions are stronger. Many women stay at home during early labor. This is often the longest part of the birthing process. It may last up to 2 to 3 days. Contractions are mild to moderate and shorter (about 30 to 45 seconds). You can usually keep talking during them. Contractions may also be irregular, about 5 to 20 minutes apart. They may even stop for a while. It helps to stay as relaxed as you can during this time. You can spend some or all of your early labor at home or anywhere else you may be comfortable. If you live far from the hospital or birthing center, you may want to think about going somewhere nearby so you can get back to the hospital quickly. For some women, there may be benefits to staying home during early labor, such as avoiding medicines or procedures. As labor progresses, you'll shift from early labor to active labor. During this time, contractions get more intense. They occur more often, about every 2 to 3 minutes. They also last longer, about 50 to 70 seconds. You will feel them even when you change positions and walk or move around. It may be hard to tell if you are in active labor. If you aren't sure, call your doctor or custom clothier. As your labor progresses, check in with your doctor or custom clothier about when to come back to the hospital or birthing center. You may have special instructions if your water broke or you tested positive for group B strep. Follow-up care is a diane part of your treatment and safety. Be sure to make and go to all appointments, and call your doctor if you are having problems. It's also a good idea to know your test results and keep a list of the medicines you take. How can you care for yourself at home? Get support. Having a support person with you from early labor until after childbirth can have a positive effect on childbirth. Find distractions. During early labor, you can walk, play cards, watch TV, or listen to music to help take your mind off your contractions. Ask your partner, labor head girls golf coach, or choirmaster for a massage. Shoulder and low back massage during contractions may ease your pain. Strong massage of the back muscles (counterpressure) during contractions may help relieve the pain of back labor. Tell your labor head girls golf coach exactly where to push and how hard to push. Use imagery. This means using your imagination to decrease your pain. For instance, to help manage pain, picture your contractions as waves rolling over you. Picture a peaceful place, such as a beach or mountain stream, to help you relax between contractions. Change positions during labor. Walking, kneeling, or sitting on a big rubber ball ( ball) are good options. Use focused breathing techniques. Breathing in a rhythm can distract you from pain. Take a warm shower or bath. Warm water may ease pain and stress. When should you call for help? Call 911 anytime you think you may need emergency care. For example, call if: You passed out (lost consciousness). You have a seizure. You have severe vaginal bleeding. You have severe pain in your belly or pelvis that doesn't get better between contractions. You have had fluid gushing or leaking from your vagina and you know or think the umbilical cord is bulging into your vagina. If this happens, immediately get down on your knees so your rear end (buttocks) is higher than your head. This will decrease the pressure on the cord until help arrives. Call your doctor now or seek immediate medical care if: You have new or worse signs of preeclampsia, such as: ? Sudden swelling of your face, hands, or feet. ? New vision problems (such as dimness, blurring, or seeing spots). ? A severe headache. You have any vaginal bleeding. You have belly pain or cramping. You have a fever. You have had regular contractions (with or without pain) for an hour. This means that you have 8 or more within 1 hour or 4 or more in 20 minutes after you change your position and drink fluids. You have a sudden release of fluid from your vagina. You have low back pain or pelvic pressure that does not go away. You notice that your baby has stopped moving or is moving much less than normal. Watch closely for changes in your health, and be sure to contact your doctor if you have any problems. Where can you learn more? Go to [email or web address]. Enter W539 in the search box to learn more about 'Early Stage of Labor at Home: Care Instructions.' Interested in seeing a video go to [email or web address] to see all video content. Current as of: July 14, 2020 Content Version: 12.8 [employer]. Care instructions adapted under license by your healthcare professional. If you have questions about a medical condition or this instruction, always ask your healthcare professional. [employer] disclaims any warranty or liability for your use of this information. documented in this encounter [facility] 02-02-2021 History of Presen t illness Narrative Pt doing well. Denies concerns. 1. Uncertain lie - vertex position confirmed by US today. 2. GBBS positive - will need IV ATB during labor. 3. Anxiety - pt doing well on sertraline 25 mg daily. Patient is 37w4d here for OB follow up. Reports good movement. Denies any concerns documented in this encounter [facility] 01-26-2021 History of Presen t illness Narrative [facility] [place] 25 y.o. at 36w4d Anxiety -VB, -LOF, -Ctx, +FM Today: GBS collected. Cervix closed. No issues - Return OB visit in 1 week. 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 Reports good FM, denies any contractions or other concerns. Needs GBBS today. GA TO DO STATUS Notes/Abnormal Results Complications Anxiety 4w2d Labs Done 14.1/42/229 6w4d Viability Scan Done PRANAY: 02/19/21 by 6w U/S Genetic Testing DECLINED 23w1d Anatomy Scan Done Normal anatomy 28w1d 28 week labs Done 11.7/34.8/169, Gluc 126 30w1d TDaP Done Rh Neg N/A O positive Medicaid BTL N/A 36w4d GBS pending documented in this encounter [facility] Encounter for supervision of normal first in third trimester- Primary Supervision of normal first Uncertain lie of fetus, single or unspecified fetus Anxiety Anxiety state, unspecified 37 weeks gestation of state, incidental [facility] Diagnosis Uncertain lie of fetus, single or unspecified fetus [facility] [place] [facility] Diagnosis Encounter for elective induction of labor- Primary Anxiety Anxiety state, unspecified Family history of clotting disorder Family history of other blood disorders Uterine contractions during [facility] [place] [facility]* Diagnosis Dysuria- Primary [facility] [place] [facility]* Diagnosis Routine general medical examination at a health care facility- Primary [facility] [place] [facility]* Diagnosis Anxiety disorder, unspecified type- Primary Dysthymia Dysthymic disorder [facility] Instructions* Beryl Winters RN - 02/09/2021 Contractions Is it labor? Contractions are the tightening and relaxing of muscles in the uterus. When labor starts, these muscles tighten and relax at a regular pace. They will get closer together and stronger, letting your body know that your baby is about to be born. Sometimes, these muscle contractions are not regular, and they start and stop. They do not seem to get stronger and closer together, but stay about the same intensity. Your healthcare provider may describe these contractions as Horatio- Padilla or signs of false labor. These contractions are normal but can be uncomfortable. Use the chart below to compare the signs of labor with false labor. Signs of Labor Signs of False Labor Contractions happen at regular intervals Contractions are not regular Contractions get stronger and closer together Contractions stay about the same Contractions keep going while lying down Contractions go away while resting Cervix starts to thin and open No changes in the cervix I had a contraction! Now what? How often are they happening? This is referred to as the frequency of your contractions. Time from the start of one contraction to the start of the next contraction. How long are they? This is referred to as the duration. Time from the start of one contraction to the end of that same contraction. How long have you been having them? 5-1-1 Rule - If they are happening every 5 minutes for the past hour and are at least 1 minute long, then you should go to the hospital. How uncomfortable are you? If you can no longer walk or talk through contractions, call your healthcare provider. Has your water broken? If it has, what is the color, smell, and amount? Is fluid still leaking? Time and keep track of your contractions Keep a timing chart handy, like the one on the next page to help you track your contractions. Using a watch or a clock with a second hand, jot down the start time and duration of your contractions. Then, fill in the frequency, so you can tell your healthcare provider about your progress. If your labor stops, print another chart and start again next time. There are free apps to help you time your contractions, including: Full Term - Contraction Timer Contraction Timer & Counter 9m Contraction Timer - Time labor When to Call Always call your healthcare provider for specific instructions on when you should go to the hospital. It is generally advised to go to the hospital when contractions are 5 minutes apart, last 1 minute each, and have stayed in that pattern for 1 hour. You may need to go sooner than 511 if you: Vomit with contractions Feel rectal pressure Are unable to walk or talk through contractions Think your water has broken Have vaginal bleeding Tested positive for Group B Strep and need time to get antibiotics at the hospital Progress quickly (Call 911 and get into a side-lying position if you are having an extremely fast labor!) Before 37 Weeks If you are having regular contractions (4 to 6 in one hour) before 37 weeks of , call yourhealthcare provider right away. 2016 - May 14, 2019, [facility]. This handout is for informational purposes only. Talk with your doctor or healthcare team if you have any questions about your care. For more health information call the Library for Health Information at [phone] or email: [email or web address]. Signs of Labor Mucus plug Some women have a release of cervical mucous that may have a slight pink color, or blood-tinged. This is called passing a mucus plug or a bloody show. This may be a sign that your body is preparing for delivery, but you do not need to call your healthcare provider. Dilation of the cervix The opening of your cervix will go from 1 to 10 centimeters (cm) during the course of the process, called dilation. Different dilations sizes happen in the different stages of labor. . Station This is the position of the baby s head in relation to your pelvis, measured at a part called the Ischial spines. If baby s head is above the Ischial spine, a negative number is used. If it is below the Ischial spine, a positive number is used. Rupture of membranes (water breaks) Rupture of membranes is the medical term for your water breaking. This is your amniotic fluid. It can be a gush or a slow trickle and should be a clear, slightly yellow color. Often a woman will go into labor soon after her water breaks. If this doesn t happen, your healthcare provider may talk with you about helping your labor along withmedicine, called augmenting. Effacement This is the thinning out of cervix, or getting shorter as your labor progresses. Normal cervix is 1to 2 inches long. The cervix is completely thinned out when you are 100% effaced. 2016 - May 14, 2019, [facility]. This handout is for informational purposes only. Talk with your doctor or healthcare team if you have any questions about your care. For more health information call the [employer] for [employer] Information at [phone] or email: [email or web address]. [facility]* Attachments The following attachments cannot be sent through Care Everywhere. * Dysuria (Greenlandic) [facility] this [facility] ([facility])* Consultation (Routine) - New Request Specialty Diagnoses / Procedures Referred By Nancy jasmine Referred To Contact Diagnoses Anxiety disorder, unspecified type Dysthymia Parmjit Enrique MD [address] [place] [address] Referral ID Status Reason Start Date Expiration Date V isits Requested Visits Authorized [id number] New Request 11/21/2021 12/16/2022 1 1 [facility] Instructions * Patient Instructions* Mady Farrell MD - 08/21/2018 1:53 PM EST Problem List Items Addressed This Visit Digestive Oral herpes simplex infection Treat this event with acyclovir since you still have an intact blister. Then we are gong to suppress for the next 9 months with three times a day Acyclovir 400 mg twice a day after the initial 5-7. Relevant Medications acyclovir (ZOVIRAX) 200 MG capsule Respiratory Nasal septal deviation But if stuffiness or headaches continue to be semi frequent consider obstruction and then use first. Loratidine or Claritin 10 mg once a day and if not enough then add Flonase or nasalcort one puff twice a day. Musculoskeletal and Integument Impetigo Relevant Medications cephALEXin (KEFLEX) 500 MG capsule Other Well adult exam You can only add to the bone bank prior to age 35. Thereafter you only make a withdrawal. 1000 mg of calcium, avoid carbonated beverage and acidic food particularly if symptomatic. B complex especially if childbearing age due to the folic acid. Vitamin D 3 1,000 IU per day Herpes Gingivostomatitis in Children: Care Instructions Your Care Instructions Herpes gingivostomatitis (say HEH-yhk-vhh-xhhr-jrr-WQ-tus ) is a viral infection, caused by the same virus as cold sores or fever blisters. But in this case, the sores are inside the mouth and down the throat. It most often happens the first time your child is infected with this virus. Later outbreaks on the lips or inside the mouth are called cold sores. The sores are painful. The pain can makeit hard for your child to eat and drink. Your child may also have a fever. The sores and swelling will go away on their own in 1 to 2 weeks. Your child may need to stay home from day care or school until the sores and swelling are gone. That's because the infection is easily spread to others. Children can spread it through their saliva (drool) to items such as toys or cups. They can also spread it to others through touch during play. Your child may be grumpy, fussy, and restless because of the pain. There are things you can do at home that may help. Follow-up care is a diane part of your child's treatment and safety. Be sure to make and go to all appointments, and call your doctor if your child is having problems. It's also a good idea to know your child's test results and keep a list of the medicines your child takes. How can you care for your child at home? Be safe with medicines. Read and follow all instructions on the label. If the doctor gave your child a prescription medicine for pain, give it as prescribed. If your child is not taking a prescription pain medicine, ask your doctor if your child can take wdhgze-tej-mvyhniy medicine. Do not give aspirin to anyone younger than 20. It has been linked to Ariadna syndrome, a serious illness. Watch for and treat signs of dehydration, which means that the body has lost too much water. Your child's mouth may feel very dry. He or she may have sunken eyes with few tears when crying. Your child may lack energy and want to be held a lot. He or she may not urinate as often as usual. Give your child flavored ice pops. These may help prevent dehydration and help the mouth feel better. Give your child soft, bland food that may be less painful to chew and swallow. Avoid acidic drinks, such as orange juice. Keep your child's towels and other objects away from other members of your family while your child has sores. When should you call for help? Call 911 anytime you think your child may need emergency care. For example, call if: ? Your child has severe trouble breathing. Symptoms may include: Using the belly muscles to breathe. The chest sinking in or the nostrils flaring when your child struggles to breathe. ? Your child is very sleepy and hard to wake up. ?Call your doctor now or seek immediate medical care if: ? Your child has symptoms of dehydration, such as: Dry eyes and a dry mouth. Passing only a little urine. Feeling thirstier than usual. ? Your child is unable to drink any liquids. ? Your child seems to be getting sicker. ? Your child develops eye redness or discharge or has any vision changes. ?Watch closely for changes in your child's health, and be sure to contact your doctor if: ? Your child does not get better as expected. Where can you learn more? Log into your personal health record on https://[employer].Add2paper and enter Y555 in the Education box to learn more about Herpes Gingivostomatitis in Children: Care Instructions. Current as of: February 15, 2017 Content Version: 11.6 9408-0439 [employer]. Care instructions adapted under license by your healthcare professional. If you have questions about a medical condition or this instruction, always ask your healthcare professional. [employer] disclaims any warranty or liability for your use of this information. Well Visit, Ages 18 to 50: Care Instructions Your Care Instructions Physical exams can help you stay healthy. Your doctor has checked your overall health and may have suggested ways to take good care of yourself. He or she also may have recommended tests. At home, you can help prevent illness with healthy eating, regular exercise, and other steps. Follow-up care is a diane part of your treatment and safety. Be sure to make and go to all appointments, and call your doctor if you are having problems. It's also a good idea to know your test resultsand keep a list of the medicines you take. How can you care for yourself at home? Reach and stay at a healthy weight. This will lower your risk for many problems, such as obesity, diabetes, heart disease, and high blood pressure. Get at least 30 minutes of physical activity on most days of the week. Walking is a good choice. You also may want to do other activities, such as running, swimming, cycling, or playing tennis or team sports. Discuss any changes in your exercise program with your doctor. Do not smoke or allow others to smoke around you. If you need help quitting, talk to your doctor about stop-smoking programs and medicines. These can increase your chances of quitting for good. Talk to your doctor about whether you have any risk factors for sexually transmitted infections (STIs). Having one sex partner (who does not have STIs and does not have sex with anyone else) is a good way to avoid these infections. Use control if you do not want to have children at this time. Talk with your doctor about thechoices available and what might be best for you. Protect your skin from too much sun. When you're outdoors from 10 a.m. to 4 p.m., stay in the shadeor cover up with clothing and a hat with a wide brim. Wear sunglasses that block UV rays. Even whenit's cloudy, put broad-spectrum sunscreen (SPF 30 or higher) on any exposed skin. See a dentist one or two times a year for checkups and to have your teeth cleaned. Wear a seat belt in the car. Drink alcohol in moderation, if at all. That means no more than 2 drinks a day for men and 1 drink a day for women. Follow your doctor's advice about when to have certain tests. These tests can spot problems early. For everyone Cholesterol. Have the fat (cholesterol) in your blood tested after age 20. Your doctor will tell you how often to have this done based on your age, family history, or other things that can increase your risk for heart disease. Blood pressure. Have your blood pressure checked during a routine doctor visit. Your doctor will tell you how often to check your blood pressure based on your age, your blood pressure results, and other factors. Vision. Talk with your doctor about how often to have a glaucoma test. Diabetes. Ask your doctor whether you should have tests for diabetes. Colon cancer. Have a test for colon cancer at age 50. You may have one of several tests. If you areyounger than 50, you may need a test earlier if you have any risk factors. Risk factors include whether you already had a precancerous polyp removed from your colon or whether your parent, brother, si ster, or child has had colon cancer. For women Breast exam and mammogram. Talk to your doctor about when you should have a clinical breast exam and a mammogram. Medical experts differ on whether and how often women under 50 should have these tests. Your doctor can help you decide what is right for you. Pap test and pelvic exam. Begin Pap tests at age 21. A Pap test is the best way to find cervical cancer. The test often is part of a pelvic exam. Ask how often to have this test. Tests for sexually transmitted infections (STIs). Ask whether you should have tests for STIs. You may be at risk if you have sex with more than one person, especially if your partners do not wear condoms. For men Tests for sexually transmitted infections (STIs). Ask whether you should have tests for STIs. You may be at risk if you have sex with more than one person, especially if you do not wear a condom. Testicular cancer exam. Ask your doctor whether you should check your testicles regularly. Prostate exam. Talk to your doctor about whether you should have a blood test (called a PSA test) for prostate cancer. Experts differ on whether and when men should have this test. Some experts suggest it if you are older than 45 and are -[place] or have a father or brother who got prostatecancer when he was younger than 65. When should you call for help? Watch closely for changes in your health, and be sure to contact your doctor if you have any problems or symptoms that concern you. Where can you learn more? Log into your personal health record on https://[employer]OUN[employer] and enter P072 in the Education box to learn more about Well Visit, Ages 18 to 50: Care Instructions. Current as of: February 19, 2017 Content Version: 11.6 8211-6396 [employer]. Care instructions adapted under license by your healthcare professional. If you have questions about a medical condition or this instruction, always ask your healthcare professional. [employer] disclaims any warranty or liability for your use of this information. Well Visit, Ages 18 to 50: Care Instructions Your Care Instructions Physical exams can help you stay healthy. Your doctor has checked your overall health and may have suggested ways to take good care of yourself. He or she also may have recommended tests. At home, you can help prevent illness with healthy eating, regular exercise, and other steps. Follow-up care is a diane part of your treatment and safety. Be sure to make and go to all appointments, and call your doctor if you are having problems. It's also a good idea to know your test resultsand keep a list of the medicines you take. How can you care for yourself at home? Reach and stay at a healthy weight. This will lower your risk for many problems, such as obesity, diabetes, heart disease, and high blood pressure. Get at least 30 minutes of physical activity on most days of the week. Walking is a good choice. You also may want to do other activities, such as running, swimming, cycling, or playing tennis or team sports. Discuss any changes in your exercise program with your doctor. Do not smoke or allow others to smoke around you. If you need help quitting, talk to your doctor about stop-smoking programs and medicines. These can increase your chances of quitting for good. Talk to your doctor about whether you have any risk factors for sexually transmitted infections (STIs). Having one sex partner (who does not have STIs and does not have sex with anyone else) is a good way to avoid these infections. Use control if you do not want to have children at this time. Talk with your doctor about thechoices available and what might be best for you. Protect your skin from too much sun. When you're outdoors from 10 a.m. to 4 p.m., stay in the shadeor cover up with clothing and a hat with a wide brim. Wear sunglasses that block UV rays. Even whenit's cloudy, put broad-spectrum sunscreen (SPF 30 or higher) on any exposed skin. See a dentist one or two times a year for checkups and to have your teeth cleaned. Wear a seat belt in the car. Drink alcohol in moderation, if at all. That means no more than 2 drinks a day for men and 1 drink a day for women. Follow your doctor's advice about when to have certain tests. These tests can spot problems early. For everyone Cholesterol. Have the fat (cholesterol) in your blood tested after age 20. Your doctor will tell you how often to have this done based on your age, family history, or other things that can increase your risk for heart disease. Blood pressure. Have your blood pressure checked during a routine doctor visit. Your doctor will tell you how often to check your blood pressure based on your age, your blood pressure results, and other factors. Vision. Talk with your doctor about how often to have a glaucoma test. Diabetes. Ask your doctor whether you should have tests for diabetes. Colon cancer. Have a test for colon cancer at age 50. You may have one of several tests. If you areyounger than 50, you may need a test earlier if you have any risk factors. Risk factors include whether you already had a precancerous polyp removed from your colon or whether your parent, brother, si ster, or child has had colon cancer. For women Breast exam and mammogram. Talk to your doctor about when you should have a clinical breast exam and a mammogram. Medical experts differ on whether and how often women under 50 should have these tests. Your doctor can help you decide what is right for you. Pap test and pelvic exam. Begin Pap tests at age 21. A Pap test is the best way to find cervical cancer. The test often is part of a pelvic exam. Ask how often to have this test. Tests for sexually transmitted infections (STIs). Ask whether you should have tests for STIs. You may be at risk if you have sex with more than one person, especially if your partners do not wear condoms. For men Tests for sexually transmitted infections (STIs). Ask whether you should have tests for STIs. You may be at risk if you have sex with more than one person, especially if you do not wear a condom. Testicular cancer exam. Ask your doctor whether you should check your testicles regularly. Prostate exam. Talk to your doctor about whether you should have a blood test (called a PSA test) for prostate cancer. Experts differ on whether and when men should have this test. Some experts suggest it if you are older than 45 and are -[place] or have a father or brother who got prostatecancer when he was younger than 65. When should you call for help? Watch closely for changes in your health, and be sure to contact your doctor if you have any problems or symptoms that concern you. Where can you learn more? Log into your personal health record on https://[employer] and enter P072 in the Education box to learn more about Well Visit, Ages 18 to 50: Care Instructions. Current as of: February 19, 2017 Content Version: 11.6 1029-6197 [employer]. Care instructions adapted under license by your healthcare professional. If you have questions about a medical condition or this instruction, always ask your healthcare professional. [employer] disclaims any warranty or liability for your use of this information. in this encounter* Patient Instructions* Qing Love LPN - 06/14/2020 11:00 AM EDT 1 documented in this encounter History of Present Illness * Mady Farrell MD - 08/21/2018 1:18 PM EST Subjective Patient ID: Nayeli Sullivan is a 22 y.o. female. [facility] establish care. Patient is new to this physician and new this practice. She is here today to establish care. Mouth lesions: Patient has had increased pain with mouth ulcers noted most recently tip of the tongue and now one on the outside of her lip. She has one intact blister on the inside of the lower lip.There is another lesion on the outside with some yellow crusting. Patient does not have a smoking history. She does not eat a large amount of citrus fruits or tomato based products. She has tried several [id number]-[id number] topical preparations. The following portions of the patient's history were reviewed and updated as appropriate: allergies, current medications, past family history, past medical history, past social history, past surgicalhistory and problem list. Review of Systems Constitutional: Negative for chills and fever. HENT: Negative for dental problem, hearing loss, mouth sores, postnasal drip, rhinorrhea, tinnitus,trouble swallowing and voice change. Eyes: Negative for pain, discharge and visual disturbance. Respiratory: Negative for cough, chest tightness, shortness of breath and wheezing. Cardiovascular: Negative for chest pain, palpitations and leg swelling. Gastrointestinal: Negative for abdominal distention, abdominal pain, blood in stool, constipation, diarrhea, nausea and vomiting. Endocrine: Negative for cold intolerance, heat intolerance, polydipsia, polyphagia and polyuria. Genitourinary: Positive for menstrual problem. Negative for decreased urine volume, difficulty urinating, dysuria, enuresis, flank pain, frequency, hematuria and urgency. Musculoskeletal: Negative for arthralgias, joint swelling and myalgias. Skin: Negative for color change and rash. Allergic/Immunologic: Negative for food allergies. Neurological: Negative for dizziness, tremors, weakness, numbness and headaches. Hematological: Negative for adenopathy. Does not bruise/bleed easily. Psychiatric/Behavioral: Negative for dysphoric mood, hallucinations and sleep disturbance. The patient is nervous/anxious. Objective Vitals: 08/21/18 1249 BP: 116/78 BP Location: Left arm Patient Position: Sitting BP Cuff Size: Adult Pulse: 76 Resp: 16 Temp: 98.3 F (36.8 C) TempSrc: Oral SpO2: 99% Weight: 56.7 kg (125 lb) Height: 5' 2 Estimated body mass index is 22.86 kg/m as calculated from the following: Height as of this encounter: 5' 2 . Weight as of this encounter: 56.7 kg (125 lb). Physical Exam Constitutional: She is oriented to person, place, and time. She appears well- developed and well-nourished. No distress. HENT: Head: Normocephalic and atraumatic. Right Ear: External ear normal. Left Ear: External ear normal. Nose: Nose normal. Mouth/Throat: Oropharynx is clear and moist. No oropharyngeal exudate. Mild obstruction with pale mucosa, slight s-shaped septal deviation Eyes: Pupils are equal, round, and reactive to light. EOM are normal. Right eye exhibits no discharge. Left eye exhibits no discharge. No scleral icterus. Neck: Normal range of motion. Neck supple. No JVD present. No tracheal deviation present. No thyromegaly present. Cardiovascular: Normal rate, regular rhythm and normal heart sounds. No murmur heard. Pulmonary/Chest: Effort normal and breath sounds normal. No stridor. Abdominal: Soft. There is no tenderness. Musculoskeletal: She exhibits no edema or tenderness. Lymphadenopathy: She has no cervical adenopathy. Neurological: She is alert and oriented to person, place, and time. No cranial nerve deficit. Skin: Skin is warm and dry. No rash noted. apthous ulcer on the tip of tongue and intact blister on the inner mucosa lower lip and outside with yellow crusting Psychiatric: She has a normal mood and affect. Her behavior is normal. Judgment and thought contentnormal. Assessment/Plan: Problem List Items Addressed This Visit Digestive Oral herpes simplex infection Treat this event with acyclovir since you still have an intact blister. Then we are gong to suppress for the next 9 months with three times a day Acyclovir 400 mg twice a day after the initial 5-7. Respiratory Nasal septal deviation But if stuffiness or headaches continue to be semi frequent consider obstruction and then use first. Loratidine or Claritin 10 mg once a day and if not enough then add Flonase or nasalcort one puff twice a day. Musculoskeletal and Integument Impetigo Relevant Medications cephALEXin (KEFLEX) 500 MG capsule Other Well adult exam You can only add to the bone bank prior to age 35. Thereafter you only make a withdrawal. 1000 mg of calcium, avoid carbonated beverage and acidic food particularly if symptomatic. B complex especially if childbearing age due to the folic acid. Vitamin D 3 1,000 IU per day For any new medications prescribed today, patient was educated about indications for the medication, how to take the medication and potential side effects of the medications. in this encounter* Parmjit Enrique MD - 02/04/2020 9:30 AM EDT New Patient Visit Nayeli aPks [id number] 1995 02/04/2020 Chief Complaint Patient presents with Establish Care History of Present Illness: Nayeli Hernandez is a 24 y.o. 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 bird aspect; pthas seen covid pts in the ICU History: Past Medical History: Diagnosis Date GERD (gastroesophageal reflux disease) Past Surgical History: Procedure Laterality Date EGD DIAGNOSTIC 2019 WISDOM TEETH EXTRACTION Family History Problem Relation Age of Onset Hypertension Mother Breast Cancer Maternal Aunt Breast Cancer Maternal Grandmother Social History Socioeconomic History Marital status: Single Spouse name: Not on file Number of children: Not on file Years of education: Not on file Highest education level: Not on file Occupational History Not on file Social Needs Financial resource strain: Not on file Food insecurity Worry: Not on file Inability: Not on file Transportation needs Medical: Not on file Non-medical: Not on file Tobacco Use Smoking status: Never Smoker Smokeless tobacco: Never Used Substance and Sexual Activity Alcohol use: Yes Drinks per session: 1 or 2 Binge frequency: Daily or almost daily Comment: occ Drug use: Never Sexual activity: Yes Partners: Male control/protection: Pill Lifestyle Physical activity Days per week: Not on file Minutes per session: Not on file Stress: Not on file Relationships Social connections Talks on phone: Not on file Gets together: Not on file Attends islam service: Not on file Active member of club or organization: Not on file Attends meetings of clubs or organizations: Not on file Relationship status: Not on file Intimate partner violence Fear of current or ex partner: Not on file Emotionally abused: Not on file Physically abused: Not on file Forced sexual activity: Not on file Other Topics Concern Service Not Asked Blood Transfusions Not Asked Caffeine Concern Not Asked Occupational Exposure Not Asked Hobby Hazards Not Asked Sleep Concern Not Asked Stress Concern Not Asked Weight Concern Not Asked Special Diet Not Asked Back Care Not Asked Exercise Not Asked Bike Helmet Not Asked Seat Belt Not Asked Domestic Violence Not Asked Social History Narrative Not on file Social History Tobacco Use Smoking Status Never Smoker Smokeless Tobacco Never Used Social History Substance and Sexual Activity Alcohol Use Yes Drinks per session: 1 or 2 Binge frequency: Daily or almost daily Comment: occ Social History Substance and Sexual Activity Drug Use Never Allergies: Patient has no known allergies. Home Medications: Current Outpatient Medications: calcium carbonate 500 MG Chew Tab tablet, Chew 500 mg daily., Disp: , Rfl: norgestimate-ethinyl estradiol (Sprintec 28) 0.25-35 MG-MCG tablet, Take 1 tablet by mouth daily., Disp: 1 Package, Rfl: 12 Vit-Fe Fumarate-FA ( 1 PLUS 1 PO), Take by mouth., Disp: , Rfl: docosanol (Abreva) 10 % Cream cream, Apply 1 Application topically 5 times daily., Disp: 2 g, Rfl: 11 valacyclovir 1 g tablet, Take 2 tablets by mouth 2 times daily., Disp: 4 tablet, Rfl: 11 ROS: Review of Systems Constitutional: Negative for chills, fatigue and fever. Respiratory: Negative for cough and shortness of breath. Cardiovascular: Negative for chest pain and palpitations. Gastrointestinal: Negative for constipation and diarrhea. Physical Examination: Vital Signs: Blood pressure 116/62, pulse 69, temperature 99.1 F (37.3 C), temperature source Temporal, height 1.575 m (5' 2 ), weight 62.1 kg (136 lb 12.8 oz), last menstrual period 01/18/2020, SpO2 99 %. Physical Exam Constitutional: Appearance: Normal appearance. Comments: Social distancing kept due to the covid virus and this pt having contact w/ them in an ICU setting Neurological: Mental Status: She is alert. Psychiatric: Mood and Affect: Mood normal. Behavior: Behavior normal. Procedure none Laboratory and Additional Data Reviewed: Results for orders placed or performed in visit on 02/01/20 PAP IG, CT-NG, RFX HPV ASCU Result Value Ref Range DIAGNOSIS Comment SPECIMEN ADEQUACY Comment PERFORMED BY Comment NOTE Comment Chlamydia, Nuc. Acid Amp Negative Negative Gonococcus, Nuc. Acid Amp Negative Negative METHOD TYPE Comment No images are attached to the encounter. Assessment and Plan: Nayeli Hernandez is a 24 y.o. female that presented for evaluation of Call the office for any questions or concerns. I did have discussion that if any medications are not covered or is not able to get the medications to call the office and let us know so other alternative/arrangements can be made. Nayeli was seen today for establish care. Diagnoses and all orders for this visit: Routine general medical examination at a health care facility Hx of cold sores - valacyclovir 1 g tablet; Take 2 tablets by mouth 2 times daily. - docosanol (Abreva) 10 % Cream cream; Apply 1 Application topically 5 times daily. Other orders - Discontinue: VALACYCLOVIR HCL PO; Take by mouth 2 times daily as needed. Parmjit Enrique MD documented in this encounter* Lyssa Saavedra - 03/10/2020 10:20 AM EDT Review of Systems Constitutional: Negative for chills and fever. HENT: Negative for hearing loss. Eyes: Negative for visual disturbance. Respiratory: Negative for shortness of breath. Cardiovascular: Negative for chest pain. Gastrointestinal: Negative for abdominal pain and blood in stool. Endocrine: Negative for polydipsia. Genitourinary: Negative for hematuria. Musculoskeletal: Negative for arthralgias and myalgias. Neurological: Negative for dizziness, seizures and numbness. Hematological: Does not bruise/bleed easily. Psychiatric/Behavioral: Negative for dysphoric mood. documented in this encounter* Lyssa Saavedra - 03/10/2020 10:20 AM EDT Review of Systems Constitutional: Negative for chills and fever. HENT: Negative for hearing loss. Eyes: Negative for visual disturbance. Respiratory: Negative for shortness of breath. Cardiovascular: Negative for chest pain. Gastrointestinal: Negative for abdominal pain and blood in stool. Endocrine: Negative for polydipsia. Genitourinary: Negative for hematuria. Musculoskeletal: Negative for arthralgias and myalgias. Neurological: Negative for dizziness, seizures and numbness. Hematological: Does not bruise/bleed easily. Psychiatric/Behavioral: Negative for dysphoric mood. documented in this encounter* Carmen Hoffmann - 04/07/2020 3:10 PM EDT Review of Systems Constitutional: Negative for chills and fever. HENT: Negative for hearing loss. Eyes: Negative for visual disturbance. Respiratory: Negative for shortness of breath. Cardiovascular: Negative for chest pain. Gastrointestinal: Negative for abdominal pain and blood in stool. Endocrine: Negative for polydipsia. Genitourinary: Negative for hematuria. Musculoskeletal: Negative for arthralgias and myalgias. Neurological: Negative for dizziness, seizures and numbness. Hematological: Does not bruise/bleed easily. Psychiatric/Behavioral: Negative for dysphoric mood. * Lyssa Saavedra - 04/07/2020 3:10 PM EDT Review of Systems documented in this encounter* Ceci Che PA-C - 05/12/2020 10:30 AM EDT 05/12/20 HPI: Nayeli Hernandez presents to the office 2 weeks status post Right wrist mass excision, doing well. She has no complaints. Exam: Incision is clean and dry and healing well. She is able to make a composite fist. Sensation is intact to light touch. Brisk capillary refill. Skin is warm and dry. Assessment: S/P Right wrist mass excision Plan: Sutures were removed in the office today. I discussed scar massage. She has no restrictions and can progress activity as tolerated. Follow up on an as needed basis. * Lyssa Saavedra - 05/12/2020 10:30 AM EDT Review of Systems Constitutional: Negative for chills and fever. HENT: Negative for hearing loss. Eyes: Negative for visual disturbance. Respiratory: Negative for shortness of breath. Cardiovascular: Negative for chest pain. Gastrointestinal: Negative for abdominal pain and blood in stool. Endocrine: Negative for polydipsia. Genitourinary: Negative for hematuria. Musculoskeletal: Negative for arthralgias and myalgias. Neurological: Negative for dizziness, seizures and numbness. Hematological: Does not bruise/bleed easily. Psychiatric/Behavioral: Negative for dysphoric mood. documented in this encounter* Qing Love LPN - 06/14/2020 11:00 AM EDT Patient here today for a UPT, it was positive, LMP 04/15/20, PRANAY. [birth year]20[birth year]1921, do's and don't , medication list given. Patient states that her mother has a clotting dis-order. She is scheduled to come back in 1 week for her OB Reg. documented in this encounter* Kenzie Hinojosa LPN - 06/24/2020 1:30 PM EDT Patient in office for her OB reg today. LMP was 04/15/2020 and PRANAY is 01/20/2021. Patient is feeling good, no complaints today. Patients mom has a bleeding disorder, thrombocythemia (platelettes). Alsopatients (baby dad) Maternal aunt has MS and ACLS. Ob reg information covered with patient . Ob reg labs done, tolerated well. Patient declined HIV. Patient is taking valcyclovir for cold sores, ok per Dr. Amor to take this medication. Patient is scheduled for her NOB and viability next week. Patient did have pap on and was WNL. Advised patient to call the office with any questions or concerns. documented in this encounter* Rosita Chacon APRN-CNP - 06/30/2020 9:00 AM EDT Pt doing well. Denies concerns. 1. NOB cx's done today. Normal pap 02/01/2020. 2. Viability today inconsistent with LMP PRANAY. Changed to 02/19/2021. 3. OB reg labs reviewed, wnl. 4. Desires early gender scan, aware of cost and need to schedule. 5. Declines AFP Tetra screening. * Asa Sanchez RN - 06/30/2020 9:00 AM EDT NOB US and cultures done documented in this encounter* Raymon Madera MD - 08/01/2020 8:00 AM EDT Doing well. No specific concerns. Chart and history reviewed. Labs normal 1. Desires early gender scan: We'll schedule with next visit documented in this encounter* Raymon Madera MD - 09/05/2020 2:30 PM EST Patient doing well. No concerns, but has right sided sciatic like pain. Discussed PT, but would like to visit with her chiropractor first. Gender scan done today - c/w female fetus. Declines Tetra/AFP. Does express concern for hair loss 1. Hair loss: Will check TSH. Patient taking PNV. documented in this encounter* Sandra Mchugh APRN-CNP - 10/03/2020 10:00 AM EST Good movement. She does continue to have Right sciatica discomfort. Massage did help, but sheworked 4 days in row and the pain came back. 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 Denies any other concerns at this time. 1) Anatomy scan rescheduled to be done at next visit due to tech being out 2) Sciatica-- I have advised patient to continue with massage as needed, as well as discussed stretches to help area of concern. Patient advised to use warm moist heat in the AM and stretching, and ice at night to help decrease symptoms. If symptoms persist, PT referral may be made. Patient voiced understanding of instructions. * Shawn Oconnor LPN - 10/03/2020 10:00 AM EST 20w1d. She has been having increased right side sciatic pain. She got a massage that helped for a few days. documented in this encounter* Sandra Mchugh APRN-CNP - 02/01/2020 10:50 AM EDT History of Present Illness Patient is here today as a new patient annual. LMP 01/18/20. COCP doing well and would like to continue. She states her mother has a clotting disorder that is not genetic. Does have maternal aunt and gma with breast ca--dx in 50's. Denies F/C/N/V/SOB/CP at this time. I have reviewed and updated the following portions of this chart as required. No Known Allergies Past Medical History: Diagnosis Date GERD (gastroesophageal reflux disease) Past Surgical History: Procedure Laterality Date WISDOM TEETH EXTRACTION Family History Problem Relation Age of Onset Hypertension Mother Breast Cancer Maternal Aunt Breast Cancer Maternal Grandmother Social History Socioeconomic History Marital status: Single Spouse name: Not on file Number of children: Not on file Years of education: Not on file Highest education level: Not on file Occupational History Not on file Social Needs Financial resource strain: Not on file Food insecurity Worry: Not on file Inability: Not on file Transportation needs Medical: Not on file Non-medical: Not on file Tobacco Use Smoking status: Never Smoker Smokeless tobacco: Never Used Substance and Sexual Activity Alcohol use: Yes Comment: occ Drug use: Never Sexual activity: Yes Partners: Male control/protection: Pill Lifestyle Physical activity Days per week: Not on file Minutes per session: Not on file Stress: Not on file Relationships Social connections Talks on phone: Not on file Gets together: Not on file Attends islam service: Not on file Active member of club or organization: Not on file Attends meetings of clubs or organizations: Not on file Relationship status: Not on file Intimate partner violence Fear of current or ex partner: Not on file Emotionally abused: Not on file Physically abused: Not on file Forced sexual activity: Not on file Other Topics Concern Service Not Asked Blood Transfusions Not Asked Caffeine Concern Not Asked Occupational Exposure Not Asked Hobby Hazards Not Asked Sleep Concern Not Asked Stress Concern Not Asked Weight Concern Not Asked Special Diet Not Asked Back Care Not Asked Exercise Not Asked Bike Helmet Not Asked Seat Belt Not Asked Domestic Violence Not Asked Social History Narrative Not on file OB History Para Term AB Living 0 0 0 0 0 0 SAB TAB Ectopic Molar Multiple Live Births 0 0 0 0 0 0 Review of Systems Constitutional: Negative for chills and fever. Eyes: Negative for discharge and redness. Respiratory: Negative for cough and shortness of breath. Cardiovascular: Negative for chest pain and leg swelling. Gastrointestinal: Negative for abdominal pain, constipation, diarrhea, nausea and vomiting. Endocrine: Negative for cold intolerance and heat intolerance. Genitourinary: Negative for menstrual problem, pelvic pain, vaginal bleeding, vaginal discharge andvaginal pain. Musculoskeletal: Negative for neck stiffness. Skin: Negative for color change and pallor. Allergic/Immunologic: Negative for environmental allergies and food allergies. Neurological: Negative for dizziness and light-headedness. Hematological: Does not bruise/bleed easily. Psychiatric/Behavioral: Negative for behavioral problems and confusion. Vitals: Blood pressure 106/68, temperature 98.4 F (36.9 C), temperature source Temporal, height 5' 2 (1.575 m), weight 135 lb (61.2 kg), last menstrual period 01/18/2020. Physical Exam Vitals signs and nursing note reviewed. Constitutional: Appearance: Normal appearance. HENT: Head: Normocephalic and atraumatic. Eyes: General: Right eye: No discharge. Left eye: No discharge. Neck: Musculoskeletal: Normal range of motion. Thyroid: No thyromegaly. Vascular: No JVD. Cardiovascular: Rate and Rhythm: Normal rate and regular rhythm. Heart sounds: Normal heart sounds. Pulmonary: Effort: Pulmonary effort is normal. Breath sounds: Normal breath sounds. Chest: Breasts: Right: No mass, nipple discharge or tenderness. Left: No mass, nipple discharge or tenderness. Abdominal: General: Bowel sounds are normal. There is no distension. Palpations: Abdomen is soft. There is no mass. Tenderness: There is no abdominal tenderness. Genitourinary: General: Normal vulva. Labia: Right: No rash or tenderness. Left: No rash or tenderness. Vagina: Normal. No vaginal discharge. Cervix: No cervical motion tenderness or discharge. Uterus: Normal. Adnexa: Right: No mass or tenderness. Left: No mass or tenderness. Musculoskeletal: Normal range of motion. Lymphadenopathy: Cervical: No cervical adenopathy. Skin: General: Skin is warm and dry. Neurological: Mental Status: She is alert and oriented to person, place, and time. Psychiatric: Behavior: Behavior normal. Judgment: Judgment normal. Neurologic Exam Mental Status Oriented to person, place, and time. Assessment and Plan 1. Encounter for gynecological examination without abnormal finding 2. Screening for cervical cancer Pap with culture performed due to age - [facility] CYTOLOGY-TABLE GAMES DEALER, LIQUID BASED; Future 3. Screening for STDs (sexually transmitted diseases) - [facility] CYTOLOGY-TABLE GAMES DEALER, LIQUID BASED; Future 4. Encounter for surveillance of contraceptive pills Patient doing well on COCP and would like to continue. I have reviewed risks and benefits of OCP with patient. If extreme shortness of breath occurs, or she develops any areas of warmth, redness, pain, and/or swelling on her legs, patient is to seek immediate medical attention. Patient voiced understanding of all instructions. Return in about 1 year (around 01/31/2021) for annual please. Thank you. . documented in this encounter* Sandra Mchugh APRN-CNP - 11/28/2020 8:30 AM EST Good movement. Denies related concerns. She was seen in the ER/OB unit and dx with tension migraine. She is getting ingrown toenail--left great toe. She states this started to bother her 2 days ago. She admits to having some anxiety lately. She isn't sleeping well. 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 1) Anxiety--at this time, patient would like to try benadryl at night to help calm/sleep. If this doesn't seem to help, we did discuss possibly starting on Zoloft 25mg daily. Patient advised to contact the office with concerns. Patient voiced understanding of all instructions. 2) Ingrown toenail--patient advised to contact podiatry for this issue 3) Tension headaches--Patient advised to take benadryl with her tylenol as needed for these symptoms. 4) Third trimester labs drawn today 5) Tdap--may get at next visit 6) Sciatica pain--improved with massage, stretching, and ice/heat * Shawn Oconnor LPN - 11/28/2020 8:30 AM EST 28.1 weeks. She is getting an ingrown toenail. She went to ER on for numbness that startedin hand and went to face and vision changes. Everything checked out ok. 28 week labs drawn from right AC with 21 G butterfly 1st attempt, tolerated. documented in this encounter* Sandra Mchugh APRN-CNP - 12/12/2020 9:10 AM EST Good movement. Patient is still struggling with her anxiety. She is interested in starting Zoloft at this time. Denies SI/HI. She explains that she feels that she just lives at a higher level of anxiety. 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 Patient admits thatshe is sleeping better, using benadryl. 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 At this time, she is not able to sleep during the day, but is sleeping at night when she is not working. 1) Tdap given today 2) Anxiety--at this time, patient would like to try Zoloft 25mg daily. I have advised her to take this the same time every day. She is to seek emergency medical attention if she develops SI/HI. Patient voiced understanding of all instructions. 3) Sciatica pain--continues to be improved with massage, stretching, and ice/heat 4) Third trimester labs reviewed without concerns. * Keeley Alan LPN - 12/12/2020 9:10 AM EST 30.2 here for OB f/u. Reports good movement. Denies any contractions, bleeding, discharge, orLOF. Pt reports that her anxiety has not improved since last OV and is currently interested in starting Zoloft as discussed. documented in this encounter* Raymon Madera MD - 10/24/2020 10:30 AM EST She doing well. No specific concerns. 20 week ultrasound normal. Patient for third trimester labs with next visit. Glucola given. 1. Sciatica: Patient doing well. * Shaylee Kaplan RN - 10/24/2020 10:30 AM EST Follow up anatomy scan documented in this encounter* Mady Amor MD - 12/26/2020 1:30 PM EDT [facility] Ms. Nayeli Hernandez is a 25 y.o. at 32w1d who presents for a visit. Her is complicated by anxiety. Ms. Hernandez reports feeling well today. She denies leakage of fluid, vaginal bleeding, or regular contractions at this time. She reports good movement. BP 120/62 (BP Location: Left arm, BP Position: Sitting) Temp 98.4 F (36.9 C) (Temporal) Ht 5' 2 (1.575 m) Wt 150 lb 6.4 oz (68.2 kg) BMI 27.51 kg/m Smoking Status Never Smoker General: WNWD, NAD Pulm: Normal work of breathing Abd: Gravid, non-tender. No RUQ TTP Ext: No LE edema. No calf TTP. FH: 32cm FHR: 138bpm Today: No issues Plan 12/26/20: - Schedule return OB visit in 2 weeks. Future Appointments Date Time Provider Department Center 01/12/2021 9:00 AM Rosita Chacon, MARCO ANTONIO-PRODUCT DESIGN ENGINEER [id number] [facility] Amor MD documented in this encounter* Mady Amor MD - 01/12/2021 9:00 AM EDT [facility] [place] 25 y.o. at 34w4d Anxiety -VB, -LOF, -Ctx, +FM Today: No issues - GBS at next visit - Return OB visit in 10 days. Future Appointments Date Time Provider Department Center 01/26/2021 8:30 AM Mady Amor MD [id number] * Qing Love LPN - 01/12/2021 9:00 AM EDT 34w4d, patient denies any problems GA TO DO STATUS Notes/Abnormal Results Complications Anxiety 4w2d Labs Done 14.1/42/229 6w4d Viability Scan Done PRANAY: 02/19/21 by 6w U/S Genetic Testing DECLINED 23w1d Anatomy Scan Done Normal anatomy 28w1d 28 week labs Done 11.7/34.8/169, Gluc 126 30w1d TDaP Done Rh Neg N/A O positive Medicaid BTL N/A ~35-36w GBS TO DO documented in this encounter Assessments Diagnosis Oral herpes simplex infection Herpetic gingivostomatitis Impetigo Well adult exam Routine general medical examination at a health care facility Nasal septal deviation Deviated nasal septum Diagnosis Routine general medical examination at a health care facility Hx of cold sores Personal history of other infectious and parasitic disease Diagnosis Ganglion of right wrist Ganglion of joint Diagnosis Ganglion cyst of wrist, right Diagnosis Ganglion cyst of wrist, right Diagnosis Ganglion of right wrist Ganglion of joint Diagnosis Ganglion cyst Ganglion, unspecified Diagnosis Preop testing Preoperative examination, unspecified Post-op pain Other acute postoperative pain Diagnosis S/P excision of ganglion cyst Diagnosis Missed period- Primary Irregular menstrual cycle Clotting disorder Other and unspecified coagulation defects Diagnosis 10 weeks gestation of - Primary state, incidental Family history of clotting disorder Family history of other blood disorders Diagnosis Encounter for supervision of normal first in first trimester- Primary Supervision of normal first 6 weeks gestation of Diagnosis 10 weeks gestation of state, incidental Diagnosis Encounter for supervision of normal first in first trimester- Primary Supervision of normal first 11 weeks gestation of state, incidental Diagnosis Encounter for supervision of normal first in second trimester- Primary Supervision of normal first Alopecia Alopecia, unspecified 16 weeks gestation of state, incidental Diagnosis Encounter for supervision of normal first in second trimester- Primary Supervision of normal first 20 weeks gestation of state, incidental Diagnosis Encounter for gynecological examination without abnormal finding Routine gynecological examination Screening for cervical cancer Screening for malignant neoplasm of the cervix Screening for STDs (sexually transmitted diseases) Screening examination for venereal disease Encounter for surveillance of contraceptive pills Surveillance of previously prescribed contraceptive pill Diagnosis Migraine with status migrainosus, not intractable, unspecified migraine type- Primary 28 weeks gestation of state, incidental Diagnosis High-risk , young primigravida in third trimester- Primary H/O migraine during Supervision of other high-risk Anxiety in , antepartum Mental disorders of mother, antepartum headache in third trimester 28 weeks gestation of state, incidental Diagnosis High-risk , young primigravida in third trimester- Primary Anxiety in , antepartum Mental disorders of mother, antepartum 30 weeks gestation of state, incidental Diagnosis Encounter for supervision of normal first in second trimester- Primary Supervision of normal first 23 weeks gestation of state, incidental Diagnosis Family history of clotting disorder Family history of other blood disorders Diagnosis 20 weeks gestation of state, incidental Summary Purpose Family History No Family History Records FoundNo Family History Records FoundNo Family History Records FoundNo Family History Records FoundNo Family History Records FoundNo Family History Records FoundNo Family History Records Found Advance Directives No Advanced Directives Records FoundLatest Code Status on File Code Status Date Activated Date Inactivated Comments Full Code 02/14/2021 7:26 AM Latest Code Status on File Code Status Date Activated Date Inactivated Comments Full Code 02/14/2021 7:26 AM Reason for Referral Status Reason Specialty Diagnoses / Procedures Referred By Contact Referred To Contact New Request Diagnoses Ganglion cyst of wrist, right Procedures XR HAND RIGHT 3+ VIEWS Ceci Che PA-C [address] [place] [address] Status Reason Specialty Diagnoses / Procedures Referred By Contact Referred To Contact Auth Not Needed Ultrasound Diagnoses 10 weeks gestation of Procedures US OB DATING ABDOMINAL < 14WEEKS Mady Amor MD [address] [place], [place] [id number] [facility] [address] [place] [address] Status Reason Specialty Diagnoses / Procedures Referre d By Contact Referred To Contact Closed Ultrasound Diagnoses 10 weeks gestation of Procedures US OB DATING ABDOMINAL < 14WEEKS Mady Amor MD [address] [place], [place] [phone] [facility] [address] [place] [phone] Status Reason Specialty Diagnoses / Procedures Referre d By Contact Referred To Contact Closed Diagnoses 20 weeks gestation of Procedures US OB ANATOMY Sandra Mchugh, GRAIN DISTRIBUTOR-PRODUCT DESIGN ENGINEER [address] [place], [place] [phone] Status Reason Specialty Diagnoses / Procedures Referred By Contact Referred To Contact New Request Diagnoses Uncertain lie of fetus, single or unspecified fetus Procedures US OB LIMITED/MARGOTH Rosita Chacon, GRAIN DISTRIBUTOR-PRODUCT DESIGN ENGINEER [id number] [place] [id number] Discharge Instructions * Instructions* Lois Cash RN - 04/28/2020 Nayeli Mary 04/28/2020 GERRI HICKS M.D. HOME INSTRUCTIONS FOR OUTPATIENT HAND SURGERY: Following your surgery, you will have a dressing on your arm or hand. Depending on the type of surgery, it may be a soft gauze dressing, renaldo bandage, cast or a combination of these. It is important to keep this dressing clean and dry, as it is meant to stay in place until you follow-up with the doctor or therapist. The surgeon may inform you or your family on the day of surgery if these instructions may be modified. In the setting of many small hand procedures, the wrap can be replaced with another type of bandage. If advised that it is ok, another wrap or even a waterproof band aide can be used over your incision. In all cases avoid getting the incision wet and observe it for any drainage that may appear. Your bandage should not be tight or rub you in a way that is problematic. Sometimes swelling can change this and cause a problem. If it should become tight or rub you in a way that is causing excessive discomfort in most situations loosening the wrap is the first step and can be done without concern. However, in the setting of a fracture or tendon repair please notify surgeon before unwrapping your surgical wound. Please do not apply neosporin or any other ointment on your incision until after the sutures have been removed. If you note a large amount of drainage, please contact your doctor. There will be some discomfort or pain at the operative site. This can be lessened by the use of an ice pack, elevating your hand above the level of your heart, and by the use of pain medication as needed. After the first 24 hours, you should use the operated hand to the extent your dressing will allow and make a fist 20 times an hour. This will help decrease swelling, especially in the fingers, and aid in lessening stiffness following surgery. Avoid lifting anything heavier than a gallon of milk with your surgical hand until you sutures are removed. This is most important if the surgical incision is on your palm. Lifting something too heavy could lead to the tearing out of your sutures and result wound complications. In addition, you may be instructed to begin a therapy program in the days following your surgery. If this is the case, you will be notified. If there are any questions or problems, please feel free to contact your physician by calling [phone] ([phone]). If it is after hours you can contact the patient coordinator front desk doctor by calling [facility] at [phone]. Prescription refills will only be done during normal business hours. Please allow 48 hours for yourprescription to be refilled. There are certain restrictions that apply to the first 24 hours following surgery, especially afterhaving a generalor regional anesthetic: 1. Do not operate power equipment today (including cars, motorcycles, power saws, drills, etc.) 2. Do not sign any legal documents today. 3. Advance diet slowly, starting with liquids. No alcoholic beverages for at least 24 hours (longer if you are taking prescription pain medication). 4. You should be accompanied by an adult for the next 24 hours. If you do not have a post-operative appointment scheduled with your doctor please call the office on the next business day for an appointment at [phone] ([phone]) documented in this encounter* Attachments The following attachments cannot be sent through Care Everywhere. * Migraine Headache (Greenlandic) documented in this encounter Additional Source Comments Reason for Visit (unrecogniz ed section and content) Reason Comments Establish Care Reason Comments New Patient right wrist cyst Status Reason Specialty Diagnoses / Procedures Referred By Contact Referred To Contact New Request Diagnoses Ganglion cyst of wrist, right Procedures XR HAND RIGHT 3+ VIEWS Ceci Che, SOPHIE [address] [place] [address] Reason Comments Cyst Pre-operative Evaluation Status Reason Specialty Diagnoses / Procedures Referre d By Contact Referred To Contact Diagnoses Ganglion of right wrist Ganglion of right wrist [M67.431] Procedures VT EXC FABBY/VASC MAL SFT TISS HAND/FNGR SUBQ <1.5CM EXCISION SOFT TISSUE FINGER HAND Reason Comments Follow-up S/P right wrist cyst excision - OR 04/28/20 (2w) Reason Comments Missed Menses Positive t est. Reason Comments OB reg Reason Comments 6 weeks 4 days, NOB US and cultures done Status Reason Specialty Diagnoses / Procedures Referre d By Contact Referred To Contact Closed Ultrasound Diagnoses 10 weeks gestation of Procedures US OB DATING ABDOMINAL < 14WEEKS Mady Amor MD [address] [place] [phone] [facility] [address] [facility] [place] [phone] Reason Comments 11.1 weeks Reason Comments 16w1d, sciatic pain, loosing hair. 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 Reason Comments 28.1 weeks. Reason Comments 30.1 Reason Comments 23.1 weeks Follow-up anatomy scan Reason Comments 32w1d Status Reason Specialty Diagnoses / Procedures Referre d By Contact Referred To Contact Closed Diagnoses 20 weeks gestation of Procedures US OB ANATOMY Sandra Mchugh, GRAIN DISTRIBUTOR-PRODUCT DESIGN ENGINEER [address] [place] [phone] Reason Comments 34w4d, patient denie s any problems Reason Comments 36.4 Reason Comments 37.4 Status Reason Specialty Diagnoses / Procedures Referred By Contact Referred To Contact New Request Diagnoses Uncertain lie of fetus, single or unspecified fetus Procedures US OB LIMITED/MARGOTH Rosita Chacon, GRAIN DISTRIBUTOR-PRODUCT DESIGN ENGINEER [id number] [place] [address] Reason Comments Contractions Reason Comments 38w2d, Contractions started last night at 7:30 am Reason Comments Contractions Pt is 38+3 gbs + rep orts leaking fluid since 1729 and ctx q 2-3 mins x 2 days. +FM, denies VB Reason Comments Fever 2 weeks Urinary Pain with frequency Reason Comments Employment Physical Reason Comments Anxiety Assessment & Plan Note - Mady Farrell MD - 08/21/2018 1:46 PM ESTAssessment & Plan Note - Mady Farrell MD - 08/21/2018 1:44 PM EST Miscellaneous Notes (unrecog nized section and content) Associated Problem(s): Nasal septal deviation But if stuffiness or headaches continue to be semi frequent consider obstruction and then use first. Loratidine or Claritin 10 mg once a day and if not enough then add Flonase or nasalcort one puff twice a day. Associated Problem(s): Well adult exam You can only add to the bone bank prior to age 35. Thereafter you only make a withdrawal. 1000 mg of calcium, avoid carbonated beverage and acidic food particularly if symptomatic. B complex especially if childbearing age due to the folic acid. Vitamin D 3 1,000 IU per day Associated Problem(s): Oral herpes simplex infection Treat this event with acyclovir since you still have an intact blister. Then we are gong to suppress for the next 9 months with three times a day Acyclovir 400 mg twice a day after the initial 5-7. in this encounter Associated Problem(s): Family history of clotting disorder Patients mom has history of Thrombocythemia causing a stroke in her eye (elevated platelets) documented in this encounter Addended by: ASA SANCHEZ on: 06/30/2020 09:35 AM Modules accepted: Orders documented in this encounter Patient denies headache or any numbness at this time vitals remain WNL Deep tendon reflexes assessed at this time and found to be normal see flow sheet for details patient denies headache numbness and tingling or any other complaint at this time. Dr. Amor called by this RN at this time to notify of patient admission to ED reported reactive NST, vital signs and labs. Provider notified of patient complaint of headache and numbness in arms. Dr. Amor notified ED gave patient benadryl and Reglan and patient reports full relief of symptoms. Dr. Amor states patient okay to be discharged from ED if patient still without symptoms of numbness or tingling and after checking deep tendon reflexes. No additional orders obtained at this time. NST started at this time. This nurse to ED for NST per request of Dr. Zheng documented in this encounter Addended by: SHAWN OCONNOR on: 11/28/2020 09:45 AM Modules accepted: Orders documented in this encounter INFORMATION SOURCE (unrecogn ized section and content) DATE CREATED AUTHOR AUTHOR'S ORGANIZ ATION 12/15/2018 [facility] DATE CREATED AUTHOR AUTHOR'S ORGANIZ ATION 12/20/2018 [facility] DATE CREATED AUTHOR AUTHOR'S ORGANIZ ATION 12/23/2018 [facility] DATE CREATED AUTHOR AUTHOR'S ORGANIZ ATION 09/12/2019 Jerson [facility]ster DATE CREATED AUTHOR AUTHOR'S ORGANIZ ATION 08/25/2021 [facility] DATE CREATED AUTHOR AUTHOR'S ORGANIZ ATION 11/23/2021 Kristina Hong RN - 11/25/2020 12:05 AM Bartolo Lozano MD - 11/24/2020 9:55 PM EST ED Notes (unrecognized secti on and content) Patient discharged in stable condition. Discharge instructions given. Patient verbalizes understanding and has no questions at this time. Emergency Department Report [facility] Service Date:.11/24/20 PCP: Parmjit Enrique Chief Complaint: Chief Complaint Patient presents with Head Pain Patient C/O vision changes and then having a headache that started at 0700 this morning. PAT Hernandez is a 25 y.o. female presents to the ED today due to headache and numbness since this morning. Patient states that she is 28 weeks and woke up this morning with numbness on the right side of the face and arm which got better. Tonight approximately one hour before coming to ER, she stood up and has blurred vision in the left eye lasting 10-15 minutes and also has numbness in the left side of the face and arm. She she also complains of headache and diffuse all over the head. She denies any nausea vomiting. She denies any cough congestion or fever. She denies any chest pain or shortness of breath and came to the ER for evaluation. Review of Systems: Review of Systems Constitutional: Negative for activity change, appetite change, chills, diaphoresis, fatigue and fever. HENT: Negative for congestion, drooling, ear discharge, ear pain, facial swelling, hearing loss, sinus pressure, sinus pain, sore throat, trouble swallowing and voice change. Eyes: Positive for visual disturbance. Negative for photophobia, pain, discharge and redness. Respiratory: Negative for cough, shortness of breath and wheezing. Cardiovascular: Negative for chest pain, palpitations and leg swelling. Gastrointestinal: Negative for abdominal distention, abdominal pain, blood in stool, diarrhea, nausea and vomiting. Endocrine: Negative for cold intolerance, heat intolerance, polydipsia, polyphagia and polyuria. Genitourinary: Negative for difficulty urinating, dysuria, flank pain, frequency and urgency. Musculoskeletal: Negative for back pain, joint swelling, neck pain and neck stiffness. Skin: Negative for color change and rash. Allergic/Immunologic: Negative for environmental allergies, food allergies and immunocompromised state. Neurological: Positive for numbness and headaches. Negative for dizziness, seizures, syncope, facial asymmetry, speech difficulty, weakness and light-headedness. Hematological: Negative for adenopathy. Does not bruise/bleed easily. Psychiatric/Behavioral: Negative for behavioral problems, hallucinations and suicidal ideas. The patient is not nervous/anxious. Past Medical History: Past Medical History: Diagnosis Date GERD (gastroesophageal reflux disease) Past Surgical History: Past Surgical History: Procedure Laterality Date EXCISION SOFT TISSUE FINGER HAND Right 04/28/2020 Laterality: Right; Surgeon: Gerri Hicks MD; Location: [facility] EGD [facility]NOSTIC 2019 WISDOM TEETH EXTRACTION Allergies: No Known Allergies Medications: Patient's Medications New Prescriptions No medications on file Previous Medications ACETAMINOPHEN 325 MG TABLET Take 325 mg by mouth every 4 hours as needed. CALCIUM CARBONATE 500 MG CHEW TAB TABLET Chew 500 mg daily as needed. DOCOSANOL (ABREVA) 10 % CREAM CREAM Apply 1 Application topically 5 times daily. LORATADINE (CLARITIN) 10 MG TABLET Take 1 tablet by mouth daily. VIT-FE FUMARATE-FA ( 1 PLUS 1 PO) Take by mouth daily. VALACYCLOVIR 1 G TABLET Take 2 tablets by mouth 2 times daily. Modified Medications No medications on file Discontinued Medications No medications on file Family History: Family History Problem Relation Age of Onset Hypertension Mother Clotting Disorder Mother Breast Cancer Maternal Aunt Breast Cancer Maternal Grandmother Hypertension Maternal Grandmother Other - Specify Sister H/O GDM Social History: Social History Socioeconomic History Marital status: Spouse name: Not on file Number of children: Not on file Years of education: Not on file Highest education level: Not on file Occupational History Not on file Tobacco Use Smoking status: Never Smoker Smokeless tobacco: Never Used Substance and Sexual Activity Alcohol use: Not Currently Comment: occ Drug use: Never Sexual activity: Yes Partners: Male control/protection: None Other Topics Concern Service Not Asked Blood Transfusions Not Asked Caffeine Concern Not Asked Occupational Exposure Not Asked Hobby Hazards Not Asked Sleep Concern Not Asked Stress Concern Not Asked Weight Concern Not Asked Special Diet Not Asked Back Care Not Asked Exercise Not Asked Bike Helmet Not Asked Seat Belt Not Asked Domestic Violence Not Asked Social History Narrative Not on file Social Determinants of Health Financial Resource Strain: Difficulty of Paying Living Expenses: Not on file Food Insecurity: Worried About Running Out of Food in the Last Year: Not on file Ran Out of Food in the Last Year: Not on file Transportation Needs: Lack of Transportation (Medical): Not on file Lack of Transportation (Non-Medical): Not on file Physical Activity: Days of Exercise per Week: Not on file Minutes of Exercise per Session: Not on file Stress: Feeling of Stress : Not on file Social Connections: Unknown Frequency of Communication with Friends and Family: Three times a week Frequency of Social Gatherings with Friends and Family: Three times a week Attends Che[employer] Services: Not on file Active Member of Clubs or Organizations: Not on file Attends Club or Organization Meetings: Not on file Marital Status: Intimate Partner Violence: Not At Risk Fear of Current or Ex-Partner: No Emotionally Abused: No Physically Abused: No Sexually Abused: No Physical Exam: Physical Exam Vitals and nursing note reviewed. Constitutional: General: She is in acute distress. Appearance: Normal appearance. She is not toxic-appearing or diaphoretic. Comments: Patient appears in mild distress due to pain HENT: Head: Normocephalic and atraumatic. Right Ear: Tympanic membrane, ear canal and external ear normal. Left Ear: Tympanic membrane, ear canal and external ear normal. Nose: Nose normal. Mouth/Throat: Mouth: Mucous membranes are moist. Pharynx: Oropharynx is clear. No oropharyngeal exudate or posterior oropharyngeal erythema. Eyes: Extraocular Movements: Extraocular movements intact. Conjunctiva/sclera: Conjunctivae normal. Pupils: Pupils are equal, round, and reactive to light. Neck: Vascular: No carotid bruit. Cardiovascular: Rate and Rhythm: Normal rate and regular rhythm. Pulses: Normal pulses. Heart sounds: Normal heart sounds. No murmur. No friction rub. No gallop. Pulmonary: Effort: Pulmonary effort is normal. Breath sounds: Normal breath sounds. No wheezing or rales. Chest: Chest wall: No tenderness. Abdominal: General: Abdomen is flat. Bowel sounds are normal. There is distension. Palpations: Abdomen is soft. There is no mass. Tenderness: There is no abdominal tenderness. There is no right CVA tenderness or left CVA tenderness. Hernia: No hernia is present. Comments: Uterus is palpable just above the umbilicus and it is nontender and heart tones are normal at a rate of 1 42/m Musculoskeletal: General: No tenderness or deformity. Normal range of motion. Cervical back: Normal range of motion and neck supple. No rigidity. No muscular tenderness. Right lower leg: No edema. Left lower leg: No edema. Lymphadenopathy: Cervical: No cervical adenopathy. Skin: General: Skin is warm and dry. Capillary Refill: Capillary refill takes less than 2 seconds. Coloration: Skin is not pale. Findings: No bruising, lesion or rash. Neurological: General: No focal deficit present. Mental Status: She is alert and oriented to person, place, and time. Psychiatric: Mood and Affect: Mood normal. Vital Signs During ED Visit Patient Vitals for the past 24 hrs: BP Temp Temp src Pulse Resp SpO2 Height 11/24/20 2139 129/80 98.2 F (36.8 C) Oral 100 18 98 % 1.575 m (5' 2 ) Orders/Results: Orders Placed This Encounter URINE CULTURE CT HEAD WITHOUT CONTRAST COMPREHENSIVE METABOLIC PANEL CBC, EDIF, PLATELET Glucose (POC device) sodium chloride 0.9% IV solution 1,000 mL sodium chloride 0.9% IV solution metoclopramide (REGLAN) injection 10 mg diphenhydrAMINE (BENADRYL) injection 50 mg acetaminophen (TYLENOL) tablet 650 mg URINALYSIS URINE MICROSCOPIC Results for orders placed or performed during the hospital encounter of 11/24/20 COMPREHENSIVE METABOLIC PANEL Result Value Ref Range GLUCOSE 90 70 - 100 MG/DL BUN 8 7.0 - 20.0 MG/DL CREATININE SERUM 0.50 (L) 0.7 - 1.2 MG/DL SODIUM 131 (L) 137 - 145 MMOL/L POTASSIUM 3.2 (L) 3.5 - 5.1 MMOL/L CHLORIDE 103 98 - 107 MMOL/L CALCIUM 9.0 8.4 - 10.2 MG/DL PROTEIN, TOTAL 6.2 (L) 6.3 - 8.2 GM/DL ALBUMIN 3.4 (L) 3.5 - 5.0 G/dl BILIRUBIN, TOTAL 0.2 0.2 - 1.3 MG/DL AST 35 14 - 36 IU/L ALKALINE PHOSPHATASE 64 38 - 126 IU/L CARBON DIOXIDE (CO2) 24 22 - 30 MMOL/L A/G Ratio 1.2 (L) 1.3 - 2.2 RATIO ALT 30 <35 IU/L ESTIMATED GFR, NON AMER >60 ml/min/1.73sq.m ESTIMATED GFR, >60 ml/min/1.73sq.m GFR COMMENT Average GFR for 20-29 years old = 116. CBC, EDIF, PLATELET Result Value Ref Range WBC (WHITE BLOOD COUNT) 10.8 3.6 - 11.0 10*3/uL RBC 3.95 (L) 4.0 - 5.4 10*6/uL HEMOGLOBIN (HGB) 11.9 (L) 12.0 - 16.0 G/DL HEMATOCRIT (HCT) 34.4 (L) 36.0 - 48.0 % MEAN CELL VOLUME 87.1 80.0 - 100.0 FL Mean Cell HGB 30.2 26.0 - 35.0 PG MEAN CELL HGB CONCENTRATION 34.7 27.0 - 37.0 G/DL RBC DISTRIBUTION 13.4 11.5 - 14.5 % PLATELET COUNT 176 130 - 400 10*3/uL MEAN PLATELET VOLUME 9.3 7.4 - 11.0 FL DIFFERENTIAL TYPE AUTO DIFF % NEUTROPHILS 71.9 37.0 - 75.0 % LYMPHOCYTE 20.3 20.0 - 55.0 % MONOCYTE % 6.5 0.0 - 10.0 % EOSINOPHIL % 0.9 0.0 - 11.0 % BASOPHIL % 0.4 0.0 - 2.0 % Absolute Neutrophil Count 7.7 (H) 1 - 6 10*3/uL LYMPHOCYTES, ABSOLUTE 2.20 1.2 - 3.4 10*3/uL MONOCYTES, ABSOLUTE 0.7 0.0 - 0.7 10*3/uL ABSOLUTE EOSINOPHIL COUNT 0.10 0 - 0 10*3/uL ABSOLUTE BASOPHIL COUNT 0.0 0 - 0 10*3/uL GLUCOSE (POC DEVICE) Result Value Ref Range GLUCOSE, POINT OF CARE 105 (H) 70 - 100 MG/DL Abalone Fisherman [id number] URINALYSIS, MACRO Result Value Ref Range COLOR, URINE YELLOW YELLOW APPEARANCE, URINE CLEAR CLEAR SPECIFIC GRAVITY, URINE 1.015 1.010 - 1.025 PH URINE 7.0 5.0 - 7.0 PROTEIN, URINE NEGATIVE NEGATIVE mg/dl GLUCOSE, URINE NEGATIVE NEGATIVE mg/dl KETONES, URINE NEGATIVE NEGATIVE mg/dl BILIRUBIN, URINE NEGATIVE NEGATIVE BLOOD, URINE DIPSTICK NEGATIVE NEGATIVE NITRITES, URINE NEGATIVE NEGATIVE UROBILINOGEN, URINE 0.2 0.2 - 1.0 E.U./dL LEUKOCYTE ESTERASE, URINE SMALL (A) NEGATIVE URINE MICROSCOPIC Result Value Ref Range WBC, URINE 1 TO 5 NEGATIVE /HPF RBC, URINE NEGATIVE NEGATIVE /HPF Epithelial Cells UA 1 TO 5 /HPF Mucus NEGATIVE NEGATIVE BACTERIA, URINE NEGATIVE NEGATIVE CRYSTALS, URINE NONE NONE CASTS, URINE NONE NONE /LPF COMMENT, URINE REFLEX CULTURE PER ESTABLISHED CRITERIA. Radiographic Imaging CT HEAD WITHOUT CONTRAST Final Result IMPRESSION: 1. No acute intracranial abnormality. 2. Minimal sinusitis. Procedures: Procedures Moderate Sedation Procedure: No ED Summary/MDM 25-year-old female who is 28 weeks presented to ER with a headache and blurred vision which started this morning along with some numbness and tingling in the right and left side of the face and both arms. She does not have any slurred speech or facial deformity and most of his symptoms were gone except headache when she came to the ER. Her physical evaluation in the ER does not reveal any neurological deficit. IV line was established and she was given IV Reglan along an IV Benadryl and also by mouth Tylenol with moderate improvement in her symptoms. OB and TABLE G[employer] DEALER nurse did a heart tones and recording and patient is being discharged home in stable condition. A CT scan of the head and blood work along with urine analysis is normal. Clinical Impression: No diagnosis found. No follow-ups on file. New Prescriptions No medications on file Discontinued Medications No medications on file An After Visit Summary was printed and given to the patient with above information. . Bartolo Zheng MD 11/24/20 [id number] documented in this encounter Care Teams (unrecognized sec tion and content) Cylinder Worker Relationship Specialty Start Date End Date Parmjit Enrique MD [address] [phone] PCP - General Family Medicine 02/01/20 FOR RECORDS PERTAINING TO PATIENTS WHO ARE OR HAVE BEEN ENROLLED IN A CHEMICAL DEPENDENCY/SUBSTANCEABUSE PROGRAM, SOME INFORMATION MAY BE OMITTED. This clinical summary was aggregated from multiple sources. Caution should be exercised in using it in the provision of clinical care. This summary normalizes information from multiple sources, and as a consequence, information in this document may materially change the coding, format and clinical context of patient data. In addition, data may be omitted in some cases. CLINICAL DECISIONS SHOULD BE BASED ON THE PRIMARY CLINICAL RECORDS. [employer] provides no warranty or guarantee of the accuracy or completeness of information in this document.
[2023-10-17 10:00] LABS: Glucose Challenge Gest 1H 50g 102 mg/dL (70-140)
== END | disposition home or self-care (01) ==
LOC: LAB 09:01
PROVIDERS: Referring Provider Obstetrics & Gynecology; Visit Provider Obstetrics & Gynecology
DX: Z13.1 Encounter for screening for diabetes mellitus (principal); Z3A.20 20 weeks gestation of pregnancy
CPT/HCPCS: 36415; 82950

== ENCOUNTER → 2023-12-11 | Outpatient (CLI) | payer MEDICAID, SELFPAY ==
--- OUTSIDE RECORDS SUMMARY | 2023-12-11 13:31 | XMS RPT_ITS | CCD ---
Author Name Unknown Address [facility] [address] [place] [address] Organization [facility] Care Team Providers Care Fish Housekeeper Name Role Phone Mady Farrell Primary Care [...] Parmjit Enrique MD Primary Care Provider [phone] Allergies Allergy Classification Reported Allergen(s) Allergy Type [...] 157.5 cm Parmjit Enrique MD Work Phone: [facility] 08-24-2021 10:51-0500 Body mass index (BMI) [Ratio] 26.08 kg/m2 Parmjit Enrique MD Work Phone: [facility] 08-24-2021 10:51-0500 Body temperature 97.11 [degF] Parmjit Enrique MD Work Phone: [facility] 08-24-2021 10:51-0500 Body weight 64.68 kg Parmjit Enrique MD Work Phone: [facility] 08-24-2021 10:51-0500 Diastolic blood pressure 62 mm[Hg] Parmjit Enrique MD Work Phone: [facility] 08-24-2021 10:51-0500 Heart rate 98 /min Parmjit Enrique MD Work Phone: [facility] 08-24-2021 10:51-0500 SaO2% (BldA) [Mass fraction] 98 % Parmjit Enrique MD Work Phone: [facility] 08-24-2021 10:51-0500 Systolic blood pressure 114 mm[Hg] Parmjit Enrique MD Work Phone: [facility] 02-26-2021 23:03-0400 Diastolic blood pressure 60 mm[Hg] Sagar Rodriguez MD Work Phone: [facility] 02-26-2021 23:03-0400 Heart rate 84 /min Sagar Rodriguez MD Work Phone: [facility] 02-26-2021 23:03-0400 Respiratory rate 18 /min Sagar Rodriguez MD Work Phone: [facility] 02-26-2021 23:03-0400 SaO2% (BldA) [Mass fraction] 98 % Sagar Rodriguez MD Work Phone: [facility] 02-26-2021 23:03-0400 Systolic blood pressure 110 mm[Hg] Sagar Rodriguez MD Work Phone: [facility] 02-26-2021 21:46-0400 Body height 157.5 cm Sagar Rodriguez MD Work Phone: [facility] 02-26-2021 21:46-0400 Body mass index (BMI) [Ratio] 25.4 kg/m2 Sagar Rodriguez MD Work Phone: [facility] 02-26-2021 21:46-0400 Body weight 63 kg Sagar Rodriguez MD Work Phone: [facility] 02-26-2021 21:45-0400 Body temperature 99.7 [degF] Sagar Rodriguez MD Work Phone: [facility] 02-08-2021 23:05-0400 Heart rate 104 /min Nehal Flower MD Work Phone: [facility] 02-08-2021 23:05-0400 SaO2% (BldA) [Mass fraction] 97 % Nehal Flower MD Work Phone: [facility] 02-08-2021 22:48-0400 Body temperature 98.6 [degF] Nehal Flower MD Work Phone: [facility] 02-08-2021 22:48-0400 Diastolic blood pressure 69 mm[Hg] Nehal Flower MD Work Phone: [facility] 02-08-2021 22:48-0400 Respiratory rate 16 /min Nehal Flower MD Work Phone: [facility] 02-08-2021 22:48-0400 Systolic blood pressure 110 mm[Hg] Nehal Flower MD Work Phone: [facility] 02-07-2021 10:06-0400 Body height 157.5 cm Mady Amor MD Work Phone: [facility] 02-07-2021 10:06-0400 Body mass index (BMI) [Ratio] 29.37 kg/m2 Mady Amor MD Work Phone: [facility] 02-07-2021 10:06-0400 Body temperature 98.2 [degF] Mady Amor MD Work Phone: [facility] 02-07-2021 10:06-0400 Body weight 72.85 kg Mady Amor MD Work Phone: [facility] 02-07-2021 10:06-0400 Diastolic blood pressure 72 mm[Hg] Mady Amor MD Work Phone: [facility] 02-07-2021 10:06-0400 Systolic blood pressure 112 mm[Hg] Mady Amor MD Work Phone: [facility] 02-06-2021 23:29-0400 Body temperature 96.6 [degF] Nehal Flower MD Work Phone: [facility] 02-06-2021 23:29-0400 Diastolic blood pressure 67 mm[Hg] Nehal Flower MD Work Phone: [facility] 02-06-2021 23:29-0400 Heart rate 83 /min Nehal Flower MD Work Phone: [facility] 02-06-2021 23:29-0400 Respiratory rate 16 /min Nehal Flower MD Work Phone: [facility] 02-06-2021 23:29-0400 SaO2% (BldA) [Mass fraction] 98 % Nehal Flower MD Work Phone: [facility] 02-06-2021 23:29-0400 Systolic blood pressure 117 mm[Hg] Nehal Flower MD Work Phone: [facility] 02-06-2021 22:15-0400 Body height 157.5 cm Nehal Flower MD Work Phone: [facility] 02-06-2021 22:15-0400 Body mass index (BMI) [Ratio] 29.15 kg/m2 Nehal Flower MD Work Phone: [facility] 02-06-2021 22:15-0400 Body weight 72.3 kg Nehal Flower MD Work Phone: [facility] 02-02-2021 13:21-0400 Body height 157.5 cm Rosita Chacon APRN-ATIYA Work Phone: [facility] 02-02-2021 13:21-0400 Body mass index (BMI) [Ratio] 29.26 kg/m2 Rosita Chacon APRN-ATIYA Work Phone: [facility] 02-02-2021 13:21-0400 Body temperature 97.5 [degF] Rosita Chacon APRN-ATIYA Work Phone: [facility] 02-02-2021 13:21-0400 Body weight 72.58 kg Rosita Chacon APRN-ATIYA Work Phone: [facility] 02-02-2021 13:21-0400 Diastolic blood pressure 64 mm[Hg] Rosita Chacon APRN-ATIYA Work Phone: [facility] 02-02-2021 13:21-0400 Systolic blood pressure 118 mm[Hg] Rosita Chacon APRN-ATIYA Work Phone: [facility] 01-26-2021 08:21-0400 Body height 157.5 cm Mady Amor MD Work Phone: [facility] 01-26-2021 08:21-0400 Body mass index (BMI) [Ratio] 29.45 kg/m2 Mady Amor MD Work Phone: [facility] 01-26-2021 08:21-0400 Body temperature 97.5 [degF] Mady Amor MD Work Phone: [facility] 01-26-2021 08:21-0400 Body weight 73.03 kg Mady Amor MD Work Phone: [facility] 01-26-2021 08:21-0400 Diastolic blood pressure 66 mm[Hg] Mady Amor MD Work Phone: [facility] 01-26-2021 08:21-0400 Systolic blood pressure 110 mm[Hg] Mady Amor MD Work Phone: [facility] 01-12-2021 08:43-0400 BMI (Body Mass Index) 28.31 kg/m2 [facility] 01-12-2021 08:43-0400 Body Temperature 98.1 [degF] [facility] 01-12-2021 08:43-0400 Body weight 70.22 kg [facility] 01-12-2021 08:43-0400 BP Diastolic 62 mm[Hg] [facility] 01-12-2021 08:43-0400 BP Systolic 120 mm[Hg] [facility] 01-12-2021 08:43-0400 Height 157.5 cm [facility] 12-26-2020 13:18-0400 BMI (Body Mass Index) 27.51 kg/m2 [facility] 12-26-2020 13:18-0400 Body Temperature 98.4 [degF] [facility] Zuleyma Agendize [facility] 12-26-2020 13:18-0400 Body weight 68.22 kg [facility] 12-26-2020 13:18-0400 BP Diastolic 62 mm[Hg] [facility] 12-26-2020 13:18-0400 BP Systolic 120 mm[Hg] [facility] 12-26-2020 13:18-0400 Height 157.5 cm [facility] 12-12-2020 08:56-0500 BMI (Body Mass Index) 27.44 kg/m2 [facility] 12-12-2020 08:56-0500 Body Temperature 97.39 [degF] [facility] 12-12-2020 08:56-0500 Body weight 68.04 kg [facility] 12-12-2020 08:56-0500 BP Diastolic 60 mm[Hg] [facility] 12-12-2020 08:56-0500 BP Systolic 100 mm[Hg] [facility] 12-12-2020 08:56-0500 Height 157.5 cm [facility] 11-28-2020 08:18-0500 BMI (Body Mass Index) 27.07 kg/m2 [facility] 11-28-2020 08:18-0500 Body Temperature 96.6 [degF] [facility] 11-28-2020 08:18-0500 Body weight 67.13 kg [facility] 11-28-2020 08:18-0500 BP Diastolic 64 mm[Hg] [facility] 11-28-2020 08:18-0500 BP Systolic 110 mm[Hg] [facility] 11-28-2020 08:18-0500 Height 157.5 cm [facility] 11-24-2020 23:45-0500 BP Diastolic 52 mm[Hg] [facility] 11-24-2020 23:45-0500 BP Systolic 105 mm[Hg] [facility] 11-24-2020 23:45-0500 Pulse (Heart Rate) 79 /min [facility] 11-24-2020 23:45-0500 Pulse Oximetry 96 % [facility] 11-24-2020 21:39-0500 Body Temperature 98.2 [degF] [facility] 11-24-2020 21:39-[address] [facility] 11-24-2020 21:39-0500 Respiratory Rate 18 /min [facility] 10-24-2020 10:31-0500 BMI (Body Mass Index) 25.79 kg/m2 [facility] 10-24-2020 10:31-0500 Body Temperature 97.3 [degF] [facility] 10-24-2020 10:31-0500 Body weight 63.96 kg [facility] 10-24-2020 10:31-0500 BP Diastolic 70 mm[Hg] [facility] 10-24-2020 10:31-0500 BP Systolic 104 mm[Hg] [facility] 10-24-2020 10:31-0500 Height 157.5 cm [facility] 10-03-2020 09:54-0500 BMI (Body Mass Index) 25.97 kg/m2 [facility] 10-03-2020 09:54-0500 Body Temperature 96.4 [degF] [facility] 10-03-2020 09:54-0500 Body weight 64.41 kg [facility] 10-03-2020 09:54-0500 BP Diastolic 60 mm[Hg] [facility] 10-03-2020 09:54-0500 BP Systolic 104 mm[Hg] [facility] 10-03-2020 09:54-0500 Height 157.5 cm [facility] 09-05-2020 14:32-0500 BMI (Body Mass Index) 25.24 kg/m2 [facility] 09-05-2020 14:32-0500 Body Temperature 97.39 [degF] [facility] 09-05-2020 14:32-0500 Body weight 62.6 kg [facility] 09-05-2020 14:32-0500 BP Diastolic 58 mm[Hg] [facility] 09-05-2020 14:32-0500 BP Systolic 102 mm[Hg] [facility] 09-05-2020 14:32-0500 Height 157.5 cm [facility] 08-01-2020 07:39-0400 BMI (Body Mass Index) 25.24 kg/m2 [facility] 08-01-2020 07:39-0400 Body Temperature 97 [degF] [facility] 08-01-2020 07:39-0400 Body weight 62.6 kg [facility] 08-01-2020 07:39-0400 BP Diastolic 56 mm[Hg] [facility] 08-01-2020 07:39-0400 BP Systolic 108 mm[Hg] [facility] 08-01-2020 07:39-0400 Height 157.5 cm [facility] 06-30-2020 16:53-0400 Body surface area Derived from formula 1.62 m2 [facility] 06-30-2020 08:03-0400 BMI (Body Mass Index) 24.87 kg/m2 [facility] 06-30-2020 08:03-0400 Body Temperature 97.81 [degF] [facility] 06-30-2020 08:03-0400 Body weight 61.69 kg [facility] 06-30-2020 08:03-0400 BP Diastolic 58 mm[Hg] [facility] 06-30-2020 08:03-0400 BP Systolic 110 mm[Hg] [facility] 06-30-2020 08:03-0400 Height 157.5 cm Rosita Chacon [facility] 06-24-2020 13:55-0400 BMI (Body Mass Index) 24.69 kg/m2 Avg Myrna Gal [id number] [facility] 06-24-2020 13:55-0400 Body Temperature 98.01 [degF] Avg Myrna Gal [id number] [facility] 06-24-2020 13:55-0400 Body weight 61.24 kg Avg Myrna Gal [id number] [facility] 06-24-2020 13:55-0400 BP Diastolic 60 mm[Hg] Avg Myrna Gal [id number] [facility] 06-24-2020 13:55-0400 BP Systolic 100 mm[Hg] Avg Myrna Gal [id number] [facility] 06-24-2020 13:55-0400 Height 157.5 cm Avg Myrna Gal [id number] [facility] 06-14-2020 11:01-0400 BMI (Body Mass Index) 25.06 kg/m2 Avg Myrna Gal [id number] [facility] 06-14-2020 11:01-0400 Body Temperature 99.19 [degF] Avg Myrna Gal [id number] [facility] 06-14-2020 11:01-0400 Body weight 62.14 kg Avg Myrna Gal [id number] [facility] 06-14-2020 11:01-0400 BP Diastolic 58 mm[Hg] Avg Myrna Gal [id number] [facility] 06-14-2020 11:01-0400 BP Systolic 100 mm[Hg] Avg Myrna Gal [id number] [facility] 06-14-2020 11:01-0400 Height 157.5 cm Avg Myrna Gal [id number] [facility] 05-12-2020 10:36-0400 BMI (Body Mass Index) 24.87 kg/m2 [facility] 05-12-2020 10:36-0400 Body Temperature 97.59 [degF] [facility] 05-12-2020 10:36-0400 Body weight 61.69 kg [facility] 05-12-2020 10:36-0400 Height 157.5 cm [facility] 04-28-2020 09:56-0400 BP Diastolic 66 mm[Hg] [facility] 04-28-2020 09:56-0400 BP Systolic 108 mm[Hg] [facility] 04-28-2020 09:56-0400 Pulse (Heart Rate) 70 /min [facility] 04-28-2020 09:56-0400 Pulse Oximetry 99 % [facility] 04-28-2020 09:56-0400 Respiratory Rate 16 /min [facility] 04-28-2020 09:25-0400 Body Temperature 98.1 [degF] [facility] 04-28-2020 06:31-0400 BMI (Body Mass Index) 24.87 kg/m2 [facility] 04-28-2020 06:31-0400 Body weight 61.69 kg [facility] 04-28-2020 06:31-0400 Height 157.5 cm [facility] 04-07-2020 15:32-0400 BMI (Body Mass Index) 24.95 kg/m2 [facility] 04-07-2020 15:32-0400 Body Temperature 98.1 [degF] [facility] 04-07-2020 15:32-0400 Body weight 61.87 kg [facility] 04-07-2020 15:32-0400 Height 157.5 cm [facility] 03-10-2020 10:09-0400 BMI (Body Mass Index) 25.42 kg/m2 [facility] 03-10-2020 10:09-0400 Body Temperature 97.11 [degF] [facility] 03-10-2020 10:09-0400 Body weight 63.05 kg [facility] 03-10-2020 10:09-0400 Height 157.5 cm [facility] 02-04-2020 09:50-0400 BMI (Body Mass Index) 25.02 kg/m2 [facility] 02-04-2020 09:50-0400 Body Temperature 99.1 [degF] [facility] 02-04-2020 09:50-0400 Body weight 62.05 kg [facility] 02-04-2020 09:50-0400 BP Diastolic 62 mm[Hg] Parmjit [facility] 02-04-2020 09:50-0400 BP Systolic 116 mm[Hg] Parmjit [facility] 02-04-2020 09:50-0400 Height 157.5 cm [facility] 02-04-2020 09:50-0400 Pulse (Heart Rate) 69 /min [facility] 02-04-2020 09:50-0400 Pulse Oximetry 99 % [facility] 02-01-2020 10:50-0400 BMI (Body Mass Index) 24.69 kg/m2 [facility] 02-01-2020 10:50-0400 Body Temperature 98.4 [degF] [facility] 02-01-2020 10:50-0400 Body weight 61.24 kg [facility] 02-01-2020 10:50-0400 BP Diastolic 68 mm[Hg] [facility] 02-01-2020 10:50-0400 BP Systolic 106 mm[Hg] [facility] 02-01-2020 10:50-0400 Height 157.5 cm [facility] 08-21-2018 12:49-0500 BMI (Body Mass Index) 22.86 kg/m2 [facility] 08-21-2018 12:49-0500 Body Temperature 98.29 [degF] [facility] 08-21-2018 12:49-0500 BP Diastolic 78 mm[Hg] [facility] 08-21-2018 12:49-0500 BP Systolic 116 mm[Hg] Mady [facility] 08-21-2018 12:49-0500 Height 157.5 cm Mady [facility] 08-21-2018 12:49-0500 Pulse (Heart Rate) 76 /min Mady [facility] 08-21-2018 12:49-0500 Pulse Oximetry 99 % Mady [facility] 08-21-2018 12:49-0500 Respiratory Rate 16 /min [facility] 08-21-2018 12:49-0500 Weight 56.7 kg Mady Farrell [facility] Encounters Encounter Date Encounter Type Care Provider Facility Start: 11-17-2021 End: 11-17-2021 Office outpatient visit 15 minutes Parmjit Enrique MD Work Phone: [facility] Procedures Date Procedure Procedure Detail Performing Clinician [...] Culture bacterial quanttative colony count urine Mady mAor Work Phone: Start: 06-24-2020 Urine drug screening [...] Detail Author Start: 12-12-2030 Tetanus vaccination TETANUS [facility] Start: 05-21-2022 Tetanus vaccination TETANUS EVERY 10 YR [facility] Start: 02-08-2022 GONORRHEA SCREEN GONORRHEA SCREEN [facility] Start: 02-08-2022 Screening for Chlamy galo trachomatis CHLAMYDIA SCREEN [facility] Start: 06-30-2021 GONORRHEA SCREEN GONORRHEA SCREEN [facility] Start: 06-30-2021 Screening for Chlamy galo trachomatis CHLAMYDIA SCREEN [facility] Start: 06-07-2021 Influenza vaccination INFLUENZ A VACCINE (Season Ended) [facility] Start: 02-09-2021 End: 02-09-2021 Follow-up encounter 02/09/2021 Follow Up Visit RN TEACHER Raymon Madera MD [address] [place] [address] [facility] RN TEACHER Start: 02-02-2021 End: 02-02-2022 US OB LIMITED/MARGOTH [facility] Immunizations Immunization Date Immunization Notes Care Provider Fa cility 12-12-2020 diphtheria, tetanus toxoids and acellular pertussis vaccine, unspecified formulation [facility] 12-12-2020 tetanus toxoid, redu amish diphtheria toxoid, and acellular pertussis vaccine, adsorbed; Translations: [TDAP VACCINE >10YO 0.5ML IM] [facility] 12-25-[address] [facility] 07-09-2017 meningococcal ACWY v accine, unspecified formulation [facility] 07-09-[address] [facility] 04-08-2013 hepatitis A vaccine, pediatric/adolescent dosage, 2 dose schedule [facility] 05-21-2012 hepatitis A vaccine, pediatric/adolescent dosage, 2 dose schedule [facility] 05-21-2012 meningococcal ACWY v accine, unspecified formulation [facility] 05-21-2012 tetanus toxoid, redu amish diphtheria toxoid, and acellular pertussis vaccine, adsorbed [facility] 06-02-2003 diphtheria, tetanus toxoids and acellular pertussis vaccine [facility] 06-02-2003 poliovirus vaccine, inactivated [facility] 06-04-2001 diphtheria, tetanus toxoids and acellular pertussis vaccine [facility] 05-08-2000 haemophilus influenz ae type b vaccine, conjugate unspecified formulation [facility] 05-08-2000 measles, mumps and r ubella virus vaccine [facility] 01-15-2000 diphtheria, tetanus toxoids and acellular pertussis vaccine [facility] 01-15-2000 haemophilus influenz ae type b vaccine, conjugate unspecified formulation [facility] 01-15-2000 hepatitis B vaccine, pediatric or pediatric/adolescent dosage [facility] 01-15-2000 poliovirus vaccine, inactivated [facility] 09-20-1999 diphtheria, tetanus toxoids and acellular pertussis vaccine [facility] 09-20-1999 measles, mumps and r ubella virus vaccine [facility] 09-20-1999 poliovirus vaccine, inactivated [facility] 06-01-1998 diphtheria, tetanus toxoids and acellular pertussis vaccine [facility] 06-01-1998 haemophilus influenz ae type b vaccine, conjugate unspecified formulation [facility] 06-01-1998 hepatitis B vaccine, pediatric or pediatric/adolescent dosage Mady Farrell [facility] 06-01-1998 poliovirus vaccine, inactivated Mady Jami [facility] 1997 hepatitis B vaccine, pediatric or pediatric/adolescent dosage Mady [facility] Payers Date Payer Category Payer Unknown [facility] xxxxxxxxxxxx 2020-Present [id number] 2020 Unknown [id number] 2018 Self-pay 2018 Unknown 2017 Unknown [id number] 1997 Unknown [id number] 1997 Unknown [id number] 1997 Unknown [id number] 1997 Unknown [id number] 1997 Unknown [id number] Unknown COMMERCIAL COMME RCIAL MISCELLANEOUS Effective for all dates xxxxxx [id number] Social History Date Type Detail Facility Start: 11-09-2018 End: 02-01-2020 Tobacco smoking status AZIS Never smoker [facility] Start: 08-12-2018 Alcohol Comment wine-occassions [facility] Start: 1995 Sex Assigned At Not on file [facility] Start: 02-01-2020 End: 02-04-2020 Alcohol intake Current drinker of alcohol (finding) [facility] Start: 02-04-2020 End: 10-24-2020 History SDOH Alcohol Std Drinks 1 [facility] Start: 02-04-2020 History SDOH Alcohol Binge 5 [facility] Start: 02-01-[address] [facility] Exposure to SARS-CoV -2 (event) Not sure [facility] Start: 02-01-2020 End: 03-10-2020 Tobacco use and exposure Never used [facility] Start: 04-04-2020 End: 10-24-2020 History SDOH Alcohol Frequency 4 [facility] Start: 04-04-2020 End: 10-24-2020 History SDOH Alcohol Binge 99 [facility] Exposure to SARS-CoV -2 (event) Yes [facility] Start: 04-28-2020 End: 10-24-2020 History SDOH IPV Fear 2 [facility] Start: 06-14-2020 End: 08-24-2021 Alcohol intake Ex-drinker (finding) [facility] Start: 06-14-2020 End: 10-24-2020 History SDOH Social Connections Living 3 [facility] Start: 04-29-2020 [facility] Clinical Notes 01-26-2021 to 11-17-2021 Parmjit Enrique MD - 11/17/2021 10:50 AM Robert Enrique MD - 08/24/2021 10:30 AM Sagar Rodriguez MD - 02/26/2021 10:02 PM Isbael Lopez RN - 02/08/2021 10:45 PM EDT Note Date & Type Note Facility 11-17-2021 History of Presen t illness Narrative Follow Up Visit Nayeli Hernandez [id number] 1995 11/17/2021 Chief Complaint Patient presents with Anxiety History of Present Illness: Nayeli Hernandez is a 26 y.o. female presenting for follow up of Pt here for a follow up: Pt was started on zoloft due to anxiety issues; while on the zoloft she had some really bad lows; has been in [facility] for counseling (needs a referral sent [...] 2 g, Rfl: 11 ergocalciferol 1.25 MG (08995 UT) capsule, Take 50,000 Units by mouth [...] Use Authorization (EUA) for the qualitative detection [id number] nucleic acid. No images are attached to [...] Parmjit Enrique MD documented in this encounter [facility] 08-24-2021 History of Presen t illness [...] daily. 2 g 11 ergocalciferol 1.25 MG (60439 UT) capsule Take 50,000 Units by mouth [...] or bloody stools. No urinary tract symptoms. 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 . . Sagar Rodriguez MD 02/26/21 [id number] documented in this encounter [facility] 02-09-2021 Miscellaneous Notes Patient given discharge [...] Dr. Flower patient positioned on side and now tracing better with no arrhthymia heard. Dr. Flower said to monitor patient for another hour and have patient follow up tomorrow in office with Dr. Amor. documented in this encounter [facility] 02-08-2021 History of Presen t illness Narrative Pt arrives on unit 38+3, c/o leaking of fluid since about 1730 this evening, pt also reports ctx q 2-3 mins x 2 days. +FM denies VB. Pt denies complications with this but does report GBS+ status. Monitors placed, VS obtained, SVE, and swabs obtained. documented in this encounter [facility] 02-07-2021 History of Presen t illness Narrative [facility] 25 y.o. at 38w2d Anxiety, GBS+ -VB, -LOF, -Ctx, +FM She reports painful contractions since yesterday. She is now having back pain, as well. Today: Cervix closed - IOL scheduled for 1899 on 02/12/21 starting with cervical ripening. No future appointments. documented in this encounter [facility] 02-07-2021 Procedure note Associated Order(s): MN NON-STRESS TEST Procedure(s): MN NON-STRESS TEST Pre-Procedure Diagnose(s): Uterine contractions during Post-Procedure Diagnose(s): Uterine contractions during Non-stress Test Gestational age: 38w2d Indication: Rule out labor Baseline: 135 bpm 15x15s: present Variability: moderate Decelerations: absent Contractions: q1-2min Duration >20 minutes Comments: REACTIVE 02/07/21 Mady Amor MD documented in this encounter [facility] 02-06-2021 Miscellaneous Notes Patient ambulatory off [...] a urine sample. documented in this encounter [facility] 02-06-2021 Hospital Discharg e Karla Camacho RN - 02/06/2021 Marion Padilla Contractions: Care Instructions Your Care Instructions Christian Padilla contractions prepare your uterus for labor. Think of them as a warm-up exercise that your body does. You may begin to feel them between the 28th and 30th weeks of your . But they start as early as the 20th week. Marion Padilla contractions usually occur more often during the ninth month. They may go away when you are active and return when you rest. These contractions are like mild contractions of true labor, but they occur less often. (You feel fewer than 8 in an hour.) They don't cause your cervix to open. It may be hard for you to tell the difference between Christian Padilla contractions and true labor, especially in [...] Where can you learn more? Go to [email or web address] atiented. Enter Z402 in the search box to learn more about 'Marion Padilla Contractions: Care Instructions.' Interested in seeing a video go to [email or web address] [email or web address] to see all video content. Current as of: July 14, 2020 Content Version: . Friendly Score. Care instructions adapted under license by your healthcare professional. If you have questions about a medical condition or this instruction, always ask your healthcare professional. Friendly Score disclaims any warranty or liability for your [...] you aren't sure, call your doctor or dog daycare provider. As your labor progresses, check in with your doctor or dog daycare provider about when to come back to the [...] off your contractions. Ask your partner, labor coach builder, or general repair mechanic for a massage. Shoulder and low back massage during contractions may ease your pain. Strong massage of the back muscles (counterpressure) during contractions may help relieve the pain of back labor. Tell your labor coach builder exactly where to push and how hard [...] Where can you learn more? Go to http://[email or web address] atiented. Enter W539 in the search box to learn more about 'Early Stage of Labor at Home: Care Instructions.' Interested in seeing a video go to [email or web address] [email or web address] to see all video content. Current as of: July 14, 2020 Content Version: 12.8 Friendly Score. Care instructions adapted under license by your healthcare professional. If you have questions about a medical condition or this instruction, always ask your healthcare professional. Friendly Score disclaims any warranty or liability for your use of this information. documented in this encounter [facility] 02-02-2021 History of Presen t illness Narrative Pt doing well. Denies concerns. 1. Uncertain lie - vertex position confirmed by US today. 2. GBBS positive - will need IV ATB during labor. 3. Anxiety - pt doing well on sertraline 25 mg daily. Patient is 37w4d here for OB follow up. Reports good movement. Denies any concerns documented in this encounter [facility] 01-26-2021 History of Presen t illness Narrative [facility] [place] 25 y.o. at 36w4d Anxiety -VB, -LOF, -Ctx, +FM Today: GBS collected. Cervix closed. No issues - Return OB visit in 1 week. Future Appointments Date Time Provider Department Center 02/02/2021 1:30 PM Rosita Chacon APRN-AUDIT CLERK 043OG [facility] 36.4 here for KRISTINA. Reports good [...] 36w4d GBS pending documented in this encounter [facility] Encounter for supervision of normal first in third trimester- Primary Supervision of normal first Uncertain lie of fetus, single or unspecified fetus Anxiety Anxiety state, unspecified 37 weeks gestation of state, incidental [facility] Diagnosis Uncertain lie of fetus, single or unspecified fetus [facility] [place] [facility] Diagnosis Encounter for elective induction of labor- Primary Anxiety Anxiety state, unspecified Family history of clotting disorder Family history of other blood disorders Uterine contractions during [facility] [place] [facility]* Diagnosis Dysuria- Primary [facility] [place] [facility]* Diagnosis Routine general medical examination at a health care facility- Primary [facility] [place] [facility]* Diagnosis Anxiety disorder, unspecified type- Primary Dysthymia Dysthymic disorder [facility]* Instructions* Beryl Winters RN [...] healthcare provider may describe these contractions as Marion- Padilla or signs of false labor. These [...] away. 2016 - May 14, 2019, [facility]. This handout is for informational purposes only. Talk with your doctor or healthcare team if you have any questions about your care. For more health information call the Library for Health Information at [phone] or email: [email or web address]. Signs of Labor Mucus plug Some women [...] effaced. 2016 - May 14, 2019, [facility]. This handout is for informational purposes only. Talk with your doctor or healthcare team if you have any questions about your care. For more health information call the [employer] for Where I've Been Information at [phone] or email: [email or web address]. [facility] Attachments The following attachments cannot be sent through Care Everywhere. * Dysuria (Panamanian) [facility] Consultation (Routine) - New Request Specialty Diagnoses / Procedures Referred By Nancy jasmine Referred To Contact Diagnoses Anxiety disorder, unspecified type Dysthymia Parmjit Enrique MD [address] [place] [address] Referral ID Status Reason Start Date Expiration Date V isits Requested Visits Authorized [id number] New Request 11/21/2021 12/16/2022 1 1 Virtual 3-D Display for Smartphones Instructions * Patient Instructions* Mady Farrell MD [...] Instructions Your Care Instructions Herpes gingivostomatitis (say LYU-jdi-wya-rxgm-ksg-IV-tus ) is a viral infection, caused by [...] your doctor if your child can take qmumcn-xij-urapslv medicine. Do not give aspirin to anyone [...] Log into your personal health record on https://Pencil You Int.BCR Environmental.Syllabuster and enter Y555 in the Education box to learn more about Herpes Gingivostomatitis in Children: Care Instructions. Current as of: February 15, 2017 Content Version: 11.6 6050-8488 Friendly Score. Care instructions adapted under license by your healthcare professional. If you have questions about a medical condition or this instruction, always ask your healthcare professional. Friendly Score disclaims any warranty or liability for your [...] you are older than 45 and are -Sammarinese or have a father or brother who got prostatecancer when he was younger than 65. When should you call for help? Watch closely for changes in your health, and be sure to contact your doctor if you have any problems or symptoms that concern you. Where can you learn more? Log into your personal health record on https://Tigglyhart.Allihub and enter P072 in the Education box to learn more about Well Visit, Ages 18 to 50: Care Instructions. Current as of: February 19, 2017 Content Version: 11.6 0286-7034 Friendly Score. Care instructions adapted under license by your healthcare professional. If you have questions about a medical condition or this instruction, always ask your healthcare professional. Friendly Score disclaims any warranty or liability for your [...] you are older than 45 and are -Sammarinese or have a father or brother who got prostatecancer when he was younger than 65. When should you call for help? Watch closely for changes in your health, and be sure to contact your doctor if you have any problems or symptoms that concern you. Where can you learn more? Log into your personal health record on https://Quaam.Allihub and enter P072 in the Education box to learn more about Well Visit, Ages 18 to 50: Care Instructions. Current as of: February 19, 2017 Content Version: 11.6 0140-9026 Friendly Score. Care instructions adapted under license by your healthcare professional. If you have questions about a medical condition or this instruction, always ask your healthcare professional. Friendly Score disclaims any warranty or liability for your use of this information. in this encounter* Patient Instructions* Qing Love LPN - 06/14/2020 11:00 AM EDT 1 documented in this encounter History of Present Illness * Mady Farrell MD - 08/21/2018 1:18 PM EST Subjective Patient ID: Nayeli Sullivan is a 22 y.o. female. [facility] establish care. Patient is new to [...] tomato based products. She has tried several tnpn-qgr-kvfpsky topical preparations. The following portions of the [...] 9:30 AM EDT New Patient Visit Nayeli Paks [id number] 1995 02/04/2020 Chief Complaint Patient presents with Establish Care History of Present Illness: Nayeli Hernandez is a 24 y.o. 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 LMP was 04/15/2020 and RPANAY is 01/20/2021. 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 Denies any other concerns at this time. [...] file Gets together: Not on file Attends moravian service: Not on file Active member of [...] culture performed due to age - MYRNA CYTOLOGY-EARTH MOVING TECHNICIAN, LIQUID BASED; Future 3. Screening for STDs (sexually transmitted diseases) - MYRNA CYTOLOGY-EARTH MOVING TECHNICIAN, LIQUID BASED; Future 4. Encounter for surveillance [...] sleeping better, using benadryl. 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 At [...] Amor MD - 12/26/2020 1:30 PM EDT [facility] Ms. Nayeli Hernandez is a 25 y.o. [...] Center 01/12/2021 9:00 AM Rosita Chacon, MARCO ANTONIO-AUDIT CLERK 043OG MY[facility] Amor MD documented in this encounter* Mady Amor MD - 01/12/2021 9:00 AM EDT [facility] [place] 25 y.o. at 34w4d Anxiety -VB, -LOF, -Ctx, +FM Today: No issues - GBS at next visit - Return OB visit in 10 days. Future Appointments Date Time Provider Department Center 01/26/2021 8:30 AM Mady Amor MD 043OG [facility] * Qing Love LPN - 01/12/2021 9:00 [...] RIGHT 3+ VIEWS Ceci Che PA-C [address] [place] [address] Status Reason Specialty Diagnoses / Procedures Referred By Contact Referred To Contact Auth Not Needed Ultrasound Diagnoses 10 weeks gestation of Procedures US OB DATING ABDOMINAL < 14WEEKS Mady Amor MD [address] [place], [place] [phone] [facility] [address] [place] [address] Status Reason Specialty Diagnoses / Procedures Referre d By Contact Referred To Contact Closed Ultrasound Diagnoses 10 weeks gestation of Procedures US OB DATING ABDOMINAL < 14WEEKS Mady Amor MD [address] [place], [place] [phone] [facility] [address] [place] [phone] Status Reason Specialty Diagnoses / Procedures Referre d By Contact Referred To Contact Closed Diagnoses 20 weeks gestation of Procedures US OB ANATOMY Sandra Mchugh, LICENSED LOAN OFFICER ASSISTANT-AUDIT CLERK [address] [place], [place] [phone] Status Reason Specialty Diagnoses / Procedures Referred By Contact Referred To Contact New Request Diagnoses Uncertain lie of fetus, single or unspecified fetus Procedures US OB LIMITED/MARGOTH Rosita Chacon, LICENSED LOAN OFFICER ASSISTANT-AUDIT CLERK [id number] [place] [id number] Discharge Instructions * Instructions* Lois Cash RN [...] free to contact your physician by calling [phone] ([phone]). If it is after hours you can contact the water conservationist doctor by calling [facility] at [phone]. Prescription refills will only be done during [...] next business day for an appointment at [phone] ([phone]) documented in this encounter* Attachments The following attachments cannot be sent through Care Everywhere. * Migraine Headache (Panamanian) documented in this encounter Additional Source Comments Reason for Visit (unrecogniz ed section and content) Reason Comments Establish Care Reason Comments New Patient right wrist cyst Status Reason Specialty Diagnoses / Procedures Referred By Contact Referred To Contact New Request Diagnoses Ganglion cyst of wrist, right Procedures XR HAND RIGHT 3+ VIEWS Ceci Che, SOPHIE [address] [place] [address] Reason Comments Cyst Pre-operative Evaluation Status Reason Specialty Diagnoses / Procedures Referre d By Contact Referred To Contact Diagnoses Ganglion of right wrist Ganglion of right wrist [M67.431] Procedures MN EXC FABBY/VASC MAL SFT TISS HAND/FNGR SUBQ [...] 14WEEKS Mady Amor MD [address] [place] [phone] [facility] [address] [place] [address] Reason Comments 11.1 weeks Reason Comments 16w1d, sciatic pain, loosing hair. Reason Comments 20w1d Reason Comments Annual Exam STARS [employer]NALYTICAL LEAD Last pap 12/2018 a t [facility] [...] of Procedures US OB ANATOMY Sandra Mchugh, LICENSED LOAN OFFICER ASSISTANT-AUDIT CLERK [address] [place] [phone] Reason Comments 34w4d, patient denie s any problems Reason Comments 36.4 Reason Comments 37.4 Status Reason Specialty Diagnoses / Procedures Referred By Contact Referred To Contact New Request Diagnoses Uncertain lie of fetus, single or unspecified fetus Procedures US OB LIMITED/MARGOTH Rosita Chacon, LICENSED LOAN OFFICER ASSISTANT-AUDIT CLERK [id number] [place] [address] Reason Comments Contractions Reason Comments 38w2d, Contractions [...] DATE CREATED AUTHOR AUTHOR'S ORGANIZ ATION 12/15/2018 [facility] DATE CREATED AUTHOR AUTHOR'S ORGANIZ ATION 12/20/2018 [facility] DATE CREATED AUTHOR AUTHOR'S ORGANIZ ATION 12/23/2018 [facility] DATE CREATED AUTHOR AUTHOR'S ORGANIZ ATION 09/12/2019 [facility] DATE CREATED AUTHOR AUTHOR'S ORGANIZ ATION 08/25/20[facility] DATE CREATED AUTHOR AUTHOR'S ORGANIZ ATION 11/23/2021 Kristina Hong RN - 11/25/2020 12:05 AM Bartolo Lozano MD - 11/24/2020 9:55 PM EST ED Notes (unrecognized secti on and content) Patient discharged in stable condition. Discharge instructions given. Patient verbalizes understanding and has no questions at this time. Emergency Department Report [facility] EM[facility] Service Date:.11/24/20 PCP: Parmjit Enrique [...] and Family: Three times a week Attends Muslim Services: Not on file Active Member of [...] CARE 105 (H) 70 - 100 MG/DL Addressing Machine Operator [id number] URINALYSIS, MACRO Result Value Ref Range [...] moderate improvement in her symptoms. OB and EARTH MOVING TECHNICIAN nurse did a heart tones and recording [...] above information. . Bartolo Zheng MD 11/24/20 [id number] documented in this encounter Care Teams (unrecognized sec tion and content) Fish Housekeeper Relationship Specialty Start Date End Date Parmjit Enrique MD [address] [place] [phone] PCP - General Family Medicine 02/01/20 FOR [...] BE BASED ON THE PRIMARY CLINICAL RECORDS. [employer] provides no warranty or guarantee of the accuracy or completeness of information in this document.
== END | disposition home or self-care (01) ==
PROVIDERS: Referring Provider Obstetrics & Gynecology; Visit Provider Obstetrics & Gynecology
DX: O26.899 Other specified pregnancy related conditions, unspecified trimester (principal); R10.2 Pelvic and perineal pain; Z3A.00 Weeks of gestation of pregnancy not specified
CPT/HCPCS: 87070; 87086; 87205

== ENCOUNTER 2024-01-02 10:55 | Outpatient (CLI) | payer MEDICAID, SELFPAY ==
[2024-01-02 11:18] VITALS: BP 111/72; PULSE 87
[2024-01-02 11:19] VITALS: RESP 18; TEMP 36.7
[2024-01-02 11:40] VITALS: BMI 29.6
[2024-01-02 11:44] LABS: Color, Urine Yellow (Yellow); Glucose, Dipstick Normal (Normal); Leukocyte Esterase-Dipstick 25 /ul (Negative); Nitrite-Dipstick Negative (Negative); Occult Blood-Urine Negative /ul (Negative); Protein-Dipstick Negative (Negative); Urine Bilirubin Dipstick Negative (Negative); Urine Clarity Sl. Cloudy (Clear); Urine Urobilinogen Normal (Normal); Urine pH 6.5 (5.0 - 8.0)
[2024-01-02 11:48] LABS: Ketone-Dipstick 150 mg/dl (Negative)
--- NOTE | 2024-01-03 07:35 | OB.TRI.PN ---
Progress Notes Date of Service: 01/03/24 Progress Note: Patient presents for triage evaluation secondary to questionable labor FHT: 140 Moderate variability reactive no decelerations category I tracing [place]: no regular Contractions Assessment and plan: false labor Reactive NST, reassuring maternal and status patient discharged to home to follow-up as scheduled. See problem list details for additional plan information. Laboratory Studies: Laboratory Tests 01/02/24 Range/Units 11:30 Urine Color Yellow (Yellow) Urine Clarity Sl. Cloudy (Clear) Urine pH 6.5 (5.0 - 8.0) Ur Specific Hudson 1.010 (1.002-1.030) Urine Protein Negative (Negative) mg/dl Urine Glucose (UA) Normal (Normal) mg/dl Urine Ketones 150 A* (Negative) mg/dl Urine Occult Blood Negative (Negative) /ul Urine Nitrite Negative (Negative) Urine Bilirubin Negative (Negative) mg/dL Urine Urobilinogen Normal (Normal) mg/dl Ur Leukocyte Esterase 25 H (Negative) /ul Charges/Coding Procedures Urinary/Genital 52xxx-59xxx: 53765-51 non-stress test Interp
== END 2024-01-02 12:55 | disposition home or self-care (01) ==
LOC: WPOUT 11:02 → WP 11:02
PROVIDERS: Referring Provider Obstetrics & Gynecology; Visit Provider Obstetrics & Gynecology
DX: O47.9 False labor, unspecified (principal); Z3A.00 Weeks of gestation of pregnancy not specified
CPT/HCPCS: 59025; 59050; 81002; 87086; 99221; G0378

== ENCOUNTER → 2024-01-08 | Outpatient (CLI) | payer MEDICAID, SELFPAY ==
--- NOTE | 2024-01-08 13:50 | US_ITS ---
STUDY: SECOND AND THIRD TRIMESTER OBSTETRICAL ULTRASOUND - LIMITED REASON FOR EXAM: Female, 28 years old for weight estimate LMP: April 26, 2023. PRIOR ULTRASOUND: Comparison is made with prior study dated September 11, 2023. TECHNIQUE: Transabdominal TECHNICAL QUALITY: Adequate. FINDINGS: There is a single intrauterine fetus. The fetus is in a cephalic presentation. There is demonstrated cardiac activity with a heart rate of 158 bpm. There is a normal amniotic fluid volume. The largest amniotic fluid pocket measures 2.3 cm x 3.7 cm. The amniotic fluid index (MARGOTH) is 7.8 cm. The placenta is anterior in location and is not low lying. There are Grade 2 placental changes. The cervix was not measured due to the head position. BIOMETRY: BPD: 8.4 cm: 33 weeks, 6 days HC: 30.8 cm: 34 weeks, 2 days AC: 32.5 cm: 36 weeks, 3 days FL: 6.9 cm: 30 weeks, 4 days Age by LMP: 36 weeks, 5 days. PRANAY by LMP: January 31, 2024. age by prior US: 36 weeks, 3 days. PRANAY by prior US: February 02, 2024. age by current US: 34 weeks, 5 days. PRANAY by current US: February 14, 2024. Estimated weight: 2799 grams, +/- 420 grams, 33 percentile. US/OB Limited With Biometrics IMPRESSION: Single live intrauterine gestation with a mean gestational age of 36 weeks and 3 days. The measurements obtained today fall within the normal expected range. Electronically Signed: Fredis Diaz MD at 15:36 EDT ,
== END | disposition home or self-care (01) ==
PROVIDERS: Referring Provider Obstetrics & Gynecology; Visit Provider Obstetrics & Gynecology
DX: O26.899 Other specified pregnancy related conditions, unspecified trimester (principal); Z3A.00 Weeks of gestation of pregnancy not specified; N89.8 Other specified noninflammatory disorders of vagina
CPT/HCPCS: 76816; 87081

== ENCOUNTER 2024-01-13 12:39 | Inpatient (IN) | payer MEDICAID, SELFPAY ==
[2024-01-13] VITALS (46 sets, daily range): BP systolic 102–131; BP diastolic 55–86; PULSE 8–123; RESP 16–20; TEMP 36.4–37.6; O2SAT 83–100; BMI 27.8
[2024-01-13] MEDS: Lactated Ringers 1,000 ML 50 ML IV (13:45)
[2024-01-13] MEDS: 0.9% Saline Lock 10 ML Syringe IV (13:45)
[2024-01-13] MEDS: miSOPROStol 25 MCG TABLET VAGINAL (13:52)
[2024-01-13 14:07] LABS: Absolute Lymphocyte Count 1.61 X10^3/uL (0.83-4.51); Absolute Neutrophil Count 5.8 X10^3/uL (2.0-7.7); Basophil# 0.02 X10^3/uL; Basophil% 0.3 % (0-1); Eosinophil# 0.08 X10^3/uL; Hematocrit 34.3 % (37-47); Hemoglobin 11.4 g/dL (12.0-15.0); Lymphocyte # 1.61 X10^3/ul (0.83-4.51); Lymphocyte % 20.4 % (19-41); Mean Corp Hgb Conc 33.2 g/dL (32-36); Mean Corpuscular Volume 87.3 fL (81-99); Mean Platelet Vol. 11.6 fl (6.2-12.0); Monocyte# 0.41 X10^3/uL; Monocyte% 5.2 % (0-10); NRBC Flagged by Analyzer 0 % (0-5); Neutrophil # 5.75 X10^3/uL (2.7-7.7); Neutrophil % 72.7 % (47-70); Platelet Count 166 K/mm3 (150-450); RBC Distribution Width CV 14.3 % (11.6-14.6); RBC Distribution Width SD 45.1 fl (35.1-43.9); Red Blood Count 3.93 M/mm3 (4.2-5.4); White Blood Count 7.9 K/mm3 (4.4-11.0)
--- NOTE | 2024-01-13 14:28 | HP.PCM_ITS ---
History and Physical Vital Signs 01/07/2414:50 01/12/2411:31 01/12/2411:33 01/13/2412:01 Height 5 ft 2 in 5 ft 2 in 5 ft 2 in Weight: 164 lb BMI 29.9 BP 116/75 Intake Visit Reasons: 37 WK OB PER JV Handkerchief Folder Required: No Is patient in pain?: No Allergies No Known Allergies Allergy (Verified 01/13/24 12:46) Medications dhvsurqu-gth-Uc-FA 1 mg tablet 1 tab PO DAILY 04/23/22 [History Confirmed 01/13/24] sertraline 50 mg tablet (Zoloft) 50 mg PO DAILY anxiety #90 tabs 11/13/23 [Rx Confirmed 01/13/24] Last Menstrual Period: 04/26/23 Zika: Zika virus screening: Negative : No [facility] Medical History (Updated 01/13/24 @ 14:[address] 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 current occupational exposures/hazards: No pets and animals: Yes pets and animals: dog(s) history of recent travel: No sexually active: Yes Smoking Status: Never smoker alcohol intake: current alcohol intake frequency: holidays/special occasions only details: Not while substance use type: does not use well-balanced diet: daily or most days caffeine: Yes Type: carbonated beverages Number of servings: 1 eating out: 1-3 times/week during the past year weight has: remained stable what type of physical activity do you participate in: walking frequency: 3-4 times per week duration: 30-45 minutes/day tigre/sikh: Jehovah'S Witness seatbelt use: always do you feel safe at home: Yes additional social history: - Tom Sequeira, 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 Date Name GA/Weeks Outcome Route Bth Weight Gen Labor Lgth Anesthesia Del Locatn Provider FOB 02/12/21 Suyapa 39 live - full term 7#.04oz F emale ? epidural [facility] Dr.Bailey Santos 06/21/22 Aurora 39 live - full term 7#11oz Fe male ? epidural [facility] Dr. Jeremy Santos Delivery Date: 02/12/21 Last Updated by: Huma Dietrich IOL- failure to progress, head stuck on hip Delivery Date: 06/21/22 Last Updated by: Huma Dietrich IOL-early labor 2 wks, shoulder dystocia HPI 37 WK OB PER JV Details: CINDY WAKEFIELD is a 28 year old who presents for routine OB visit. upon evlauaiton she has oligohydramnios and denies lof has had decreased fm the last day and denies any vaginal bleeding, baby measuring 6lb 4 ounces last week, previous delivery 7 lbs uncomplicated. OB Visit PRANAY Calculator ? Estimated Delivery Date Method Current WG Current Estimate 01/31/24 LMP (Uncertain) 37w 3d Expected Delivery Route/Plan Labor Preferences- CB/BF classes: no labor support person: Tom labor intervention preferences: [] pain management options preferred: epidural ok cut cord/dad catch: cord : yes PP control planned: discussed discussed possible routes of delivery and associated risks: [] special requests: [] Specific Issue/Plans Covid status: declined Flu vaccine: given at work Tdap vaccine: [] Rhogam: na LARC form signed: yes Problem list reviewed and updated with the most current plan of care details and appropriate orders placed. Relevant counseling for the gestational age provided. Continue routine care and follow up unless otherwise noted in visit notes/problem list details Initial Weight: Not Recorded Date -?-?-?-?-?-?-?-?-?-?-?-?- EGA Weight BP Urine Prot -?-?-?-?-?-?-?-?-?-?-?-?- Glucose FHR FuHt Pres Dilation -?-?-?-?-?-?-?-?-?-?-?-?- Effaced St Visit Note 06/24/23-?-?-?-?-?-?-?-?-?-?-?-?- 8w 3d 146 lb 8 oz 110/63 -?-?-?-?-?-?- ?-?-?-?-?-?- 160 ? ? -?-?-?-?-?-?-?-?-?-?-?-?- ? Sm- CRL 1.8 cm cons with LMP 07/25/23-?-?-?-?-?-?-?-?-?-?-?-?- 12w 6d 146 lb 6 oz 127/77 Negative -?-? -?-?-?-?-?-?-?-?-?-?- Negative 170 ? ? -?-?-?-?-?-?-?-?-?-?-?-?- ? kw-no vb/cramping. Formal US ordered-[facility] 08/19/23-?-?-?-?-?-?-?-?-?-?-?-?- 16w 3d 149 lb 6 oz 110/73 -?-?-?-?-?-?- ?-?-?-?-?-?- 140 ? ? -?-?-?-?-?-?-?-?-?-?-?-?- ? SM- no vb lof cramping 09/19/23-?-?-?-?-?-?-?-?-?-?-?-?- 20w 6d 154 lb 99/63 -?-?-?--?-?-?- ?-?-?-?-?-?- 145 ? ? -?-?-?-?-?-?-?-?-?-?-?-?- ? SM- no vb some cramping, having some swelling 10/17/23-?-?-?-?-?-?-?-?-?-?-?-?- 24w 6d 154 lb 4 oz 126/78 Negative -?-? -?-?-?-?-?-?-?-?-?-?- Negative 143 24 ? -?-?-?-?-?-?-?-?-?-?-?- ?- ? MH-No VB, LOF. Good Fm. Did labs today. Larc 11/13/23-?-?-?-?-?-?-?-?-?-?-?-?- 28w 5d 156 lb 123/73 Negative -?-? -?-?-?-?-?-?-?-?-?-?- Negative 135 29 ? -?-?-?-?-?-?-?-?-?-?-?- ?- ? JV-having bh contractions but declines exam. no lof, vag bleeding or dec fm. growth scan for 36 weeks ordered.scholder dystocia risks discussedJV-having bh contractions but declines exam. no lof, vag bleeding or dec fm. growth scan for 36 weeks ordered.scholder dystocia risks discussed: matrnal obestity, excessive weight gain in , protracted labor, and diabetes are common risk factors, however IOL is also associated with a risk of shoulder dystocia by almost 3X increased risk. She wants to think about choices when it comes to delivery and let us know. tdap next visit. 11/28/23-?-?-?-?-?-?-?-?-?-?-?-?- 30w 6d 158 lb 103/64 Negative -?-? -?-?-?-?-?-?-?-?-?-?- Negative 160 31 ? -?-?-?-?-?-?-?-?-?-?-?- ?- ? SM- no vb lof good fm no regular ctx 12/11/23-?-?-?-?-?-?-?-?-?-?-?-?- 32w 5d 160 lb 6 oz 116/73 Negative -?-? -?-?-?-?-?-?-?-?-?-?- Negative 155 32 ? -?-?-?-?-?-?-?-?-?-?-?- ?- ? JV-pt has dc and bv on exam. flagyl orderd. urine neg. continue chiropractor treatment. 12/23/23-?-?-?-?-?-?-?-?-?-?-?-?- 34w 3d 163 lb 108/71 -?-?-?-?-?-?- ?-?-?-?-?-?- 165 34 ? -?-?-?-?-?-?-?-?-?-?-?- ?- ? JV- no lof, vaginal bleeding, or dec fm. s/p flagyl treatment and feeling better. JV- no lof, vaginal bleeding, or dec fm. s/p flagyl rx but did not take it and feeling better. 01/08/24-?-?-?-?-?-?-?-?-?-?-?-?- 36w 5d 161 lb 114/79 Negative -?-? -?-?-?-?-?-?-?-?-?-?- Negative 145 36 Cephalic 0.5-?-?-?-?-?-?-?-?- ?-?-?-?- 30 -3 JV-no lof, vaginal bleedi ng or dec fm. MARGOTH was 7.5. arom plus ordered and will rpt margoth in office early next week. baby weighed 6 lbs 4 oz and the plan was to consult [facility] for an amnio and early delivery before baby gets over 7 lbs due to 1 min shoulder dystocia with last . will wait for results before consulting M. 01/13/24-?-?-?-?-?-?-?-?-?-?-?-?- 37w 3d 164 lb 116/75 -?-?-?-?-?-?- ?-?-?-?-?-?- ? ? ? -?-?-?-?-?-?-?-?-?-?-?-?- ? SM- patient seen- fundal height low margoth checked and 2.8 cm recommend IOL now. ACOG First Trimester First Trimester: Second Trimester Second Trimester: Signs and Symptoms of Labor, Selecting a care provider, Reproductive Life Planning & Contreception, Care Planning, Depression/Anxiety and Intimate Partner Violence; Discussed Tobacco Cessation Third Trimester Third Trimester: Pain Management Plans, Labor support person(s), Immediate Larc, Movement Monitoring, Signs and Symptoms of Preeclampsia and [place] Education ROS Const Reports system reviewed and no additional complaints, except as documented, Reports fatigue and Denies fever(s) Eyes Reports system reviewed and no additional complaints, except as documented ENT Reports system reviewed and no additional complaints, except as documented Card Denies chest pain and Denies dyspnea Resp Reports system reviewed and no additional complaints, except as documented, Denies cough and Denies dyspnea GI Denies abdominal pain and Reports nausea Reports system reviewed and no additional complaints, except as documented Musc Reports system reviewed and no additional complaints, except as documented Skin/Breast Reports system reviewed and no additional complaints, except as documented Neuro Yes system reviewed and no additional complaints, except as documented Psych Reports system reviewed and no additional complaints, except as documented Endo Reports system reviewed and no additional complaints, except as documented and Reports fatigue Exam Const General: healthy appearing, comfortable and no acute distress Orientation: alert [facility] Head: normal to inspection, normocephalic and atraumatic Ears: hearing grossly normal bilaterally and external ears normal Nose: external nose normal and nares normal Mouth: oral mucosae normal Teeth and gingiva: dentition normal Eyes General: appearance normal, both eyes and all related structures Neck Neck: normal visual inspection, no lymphadenopathy and supple Thyroid: thyroid normal Chest Chest palpation & inspection: normal inspection of the chest Breast inspection: normal inspection of the breasts and normal inspection of the axillae Breast palpation: normal palpation of the breasts and normal palpation of the axillae Resp Effort & Inspection: normal respiratory effort GI Inspection: normal to inspection Palpation: soft and no hepatosplenomegaly General: bladder normal to palpation External Female Exam: normal external appearance and normal appearance of the urethra Urethra: normal appearance of the urethra Speculum Exam - Vagina: normal appearance of the vagina and normal vaginal discharge Speculum Exam - Cervix: normal appearance of the cervix Bimanual Exam- Vagina & Uterus: normal bimanual exam, bladder normal to palpation, non-tender and other Bimanual Exam- Adnexa, other: non-tender Skin General: no rashes or lesions noted Neuro Motor: muscle tone normal throughout and no movement abnormalities noted Extrem General: normal to inspection and full ROM Supplemental Info ACOG book given and patient encouraged to read about nutrition, exercise, weight gain, and food avoidance in . Coding Level of Care Code OB Routine Diagnoses History of shoulder dystocia H/O depression, currently O99.891; Z86.59 Supervision of high risk in second trimester O09.92 Trimester: second trimester 37 weeks gestation of Z3A.37 Weeks of gestation: 37 weeks Oligohydramnios in third trimester O41.03X0 Assessment and Plan Assessment and Plan (1) History of shoulder dystocia: Status: Acute Comment: 7 lb 11 ounces, 7 lbs didn't. recommend growth US at 36 weeks. discussed IOL 39 weeks. (2) H/O depression, currently : Status: Acute Comment: no meds. stable (3) Supervision of high-risk : Status: Acute Qualifiers: Trimester: second trimester Qualified Code(s): O09.92 - Supervision of high risk , unspecified, second trimester Comment: PRR , PRANAY 01/30/23 girl Merelyn Aurora Delgado, -Tom (4) : Status: Acute Qualifiers: Weeks of gestation: 37 weeks Qualified Code(s): Z3A.37 - 37 weeks gestation of Comment: normal anatomy, declined genetic, ntd, & carrier testing (5) Oligohydramnios in third trimester: Status: Acute Comment: recommend IOL Plan Patient presents IOL, plan management for with pitocin/AROM. Pain management: need to discuss GBS negative. Management of any complications: none I have reviewed the [facility] and made any clinically relevant updates.
[2024-01-13 14:39] LABS: Syphilis Antibodies Non-reactive
[2024-01-13] MEDS: Lactated Ringers 1,000 ML 999 ML IV (17:18)
--- NOTE | 2024-01-13 17:20 | PCM.PN.BLA ---
Progress Note pt is status post one dose of cytotec and consents to either a [place] balloon or arom. current tracing: FHT: Moderate variability reactive no decelerations category I tracing [place]: q2-3 min Contractions cx: internally is 3-4/ external 2/70/-2, membranes ruptured with clear fluid return A/P: pt wants epidural before starting pitocin
[2024-01-13] MEDS: fentaNYL 100 MCG/2 ML Ampul IV (17:58)
[2024-01-13] MEDS: fentaNYL-bupivacaine (epidural) 100 ML BAG EPIDURAL ×2 (18:45→22:49)
[2024-01-13] MEDS: Oxytocin 15 Units/NS 250ml 15 UNITS/250 ML IV.SOLN 2 UNITS IV (20:44)
[2024-01-13] MEDS: Ondansetron 4 MG/2 ML Vial IV (23:06)
[2024-01-13] MEDS: Lactated Ringers 1,000 ML 200 ML IV (23:10)
[2024-01-13] MEDS: Sertraline 50 MG Tablet PO (23:11)
[2024-01-14] VITALS (25 sets, daily range): BP systolic 101–128; BP diastolic 58–72; PULSE 59–90; RESP 16; TEMP 36.2–36.9; O2SAT 96–99
--- NOTE | 2024-01-14 01:00 | OP.PCM_ITS ---
Assessment & Plan (1) Oligohydramnios in third trimester: COMMENT: recommend IOL (2) History of shoulder dystocia: COMMENT: 7 lb 11 ounces, 7 lbs didn't. recommend growth US at 36 weeks. discussed IOL 39 weeks. (3) H/O depression, currently : COMMENT: no meds. stable (4) Supervision of high-risk : QUALIFIERS: Trimester: second trimester Qualified Code(s): O09.92 - Supervision of high risk , unspecified, second trimester COMMENT: PRR , PRANAY 01/30/23 girl Dariusn Aurora Delgado, - Tom (5) : QUALIFIERS: Weeks of gestation: 37 weeks Qualified Code(s): Z3A.37 - 37 weeks gestation of COMMENT: normal anatomy, declined genetic, ntd, & carrier testing Maternal Data Information PRANAY Calculator Estimated Delivery Date Method Current WG Current Estimate 01/31/24 LMP (Uncertain) 37w 4d Final PRANAY Source: LMP Gestational age: 37 weeks 4 days Vaginal Delivery Maternal Presentation Maternal Presentation: Medically Indicated Induction Type of Induction: Pitocin, Amniotomy and Cytotec Operative Information Date of Procedure: 01/14/24 Pre-Operative Diagnosis: 28 y/o @ 37 weeks with oligohydramnios Post-Operative Diagnosis: 28 y/o @ 37 weeks with oligohydramnios Surgery / Procedure Performed: Spontaneous Vaginal Delivery Type of Anesthesia: Epidural Drain: Strauss to straight drain Estimated Blood Loss: 50cc Time of Delivery: 00:51 Findings Description of Procedure: Patient began pushing and delivered the head in the TAI presentation. The head was delivered atraumatically. The anterior and posterior shoulders delivered without complication followed by the rest of the infant and the infant was placed on the maternal abdomen. Delayed cord clamping was employed for approximately 60 seconds. Cord was clamped and cut and gentle traction was applied to the cord and the placenta delivered spontaneously immediately following it was noted to be intact with three-vessel cord. The perineum and vagina were inspected and noted to be intact. EBL was 50 cc. Patient and infant tolerated delivery well. Presentation: Vertex Amniotic Membrane Rupture Type: Spontaneous Amniotic Fluid Description: Clear Placental Delivery Description: Spontaneous Placenta Disposition: [facility] Cord Vessel Description: 3 Vessels Cord Entanglement: None A Gender: Female (1 minute): 9 (5 minute): 9 Delayed Cord Clamping: Yes Post Vaginal Delivery Medications Given After Delivery: IV Pitocin Episiotomy Description: None Laceration: None Complication Complications: None Multi Select Codes Urinary/Genital Urinary/Genital CPT Codes: 77045 delivery+PP Care([facility])
--- NOTE | 2024-01-14 01:04 | DCINST_ITS ---
Discharge Instructions Diet Discharge Diet: No restrictions Activity Discharge Activity: Return to Normal Activity, May Not Drive (while taking narcotic pain medications.) and May Shower May resume sexual activity in: 4-6 weeks Dressing / Incision Call your doctor if your incision/area has: Continuous Slow Oozing, Sudden Increased Bleeding, Increased Pain/ Swelling, Increased Redness and Foul Smelling Discharge Follow Up Care Please Follow Up With: Radha Jin, DO When: Call [phone] to make an appointment with your doctor in 6 weeks. If you had elevated blood pressure or 4th degree laceration, you will need to be seen in 2 weeks. Test Results: Test results from this visit will be discussed in further detail at your follow- up appointment, if applicable. Discharge Plan Admission Admit Date/Time: 01/13/24 12:39 Attending Provider: Radha Jin Primary Care Provider: Care Physician,Rosio Primary Discharge Orders/Prescriptions Prescriptions: No Action sertraline [Zoloft] 50 mg tablet 50 mg PO DAILY Qty: 90 4RF 1 mg Tablet 1 tab PO DAILY Referrals / Follow Up: Care Physician,No Primary [Primary Care Provider] -
[2024-01-14] MEDS: Oxytocin 15 Units/NS 250ml 15 UNITS/250 ML IV.SOLN 83 UNITS IV (01:30)
[2024-01-14] MEDS: Acetaminophen 500 MG Tablet 1000 MG PO ×2 (08:31→15:32)
[2024-01-14] MEDS: Ibuprofen 600 MG Tablet PO ×2 (10:20→21:16)
[2024-01-14] MEDS: Dibucaine 30 GM Tube 1 APPLIC TOPICAL (10:20)
[2024-01-14] MEDS: Senna/Docusate Sodium 1 Tablet PO (10:20)
[2024-01-14] MEDS: Sertraline 50 MG Tablet PO (22:40)
[2024-01-15 01:48] VITALS: BP 108/70; PULSE 80; RESP 16; TEMP 36.6; O2SAT 100
--- NOTE | 2024-01-15 08:17 | PCM.PN.OB ---
Subjective Subjective Patient doing well without complaints. Tolerating PO. Ambulating and voiding without difficulty. Feeding well. Denies chest pain, shortness of breath, calf pain/swelling, fevers, chills, lightheadedness. Objective Data Objective Data Vital Signs: Vital Signs Temp Pulse Resp BP Pulse Ox O2 Del Method 97.8 F 80 16 108/70 100 Room Air 01/15/24 01:48 01/15/24 01:48 01/15/24 01:48 01/15/24 01:48 01/15/24 01:48 01/15/24 01:48 Oxygen Delivery Method Room Air Weight: 152 lb Body Mass Index (BMI) 27.8 Intake & Output: Intake and Output for Last 24 Hours 01/13/24 01/14/24 01/15/24 23:59 23:59 23:59 Intake Total 1477.56 / 1477.56 843.27 / 843.27 Output Total 700 / 700 50 / 50 Balance 777.56 / 777.56 793.27 / 793.27 Lab / Micro Data 01/13/24 13:45 Physical Exam Const alert and no apparent distress HEENT normocephalic and moist oral mucous membranes Eyes PERRL Neck full ROM Lymph Lymphatic: no lymphadenopathy noted Chest inspection of chest normal Resp normal respiratory effort and normal air movement Cardio regular rate and regular rhythm GI GI Narrative: Soft, nontender, uterus firm and below umbilicus Extremity normal to inspection, full ROM and no clubbing, cyanosis or edema Neuro moves all extremities, no focal motor deficits and no sensory deficits noted Psych mental status grossly normal, affect normal, speech normal and activity/motor behavior normal Assessment & Plan (1) Spontaneous vaginal delivery: COMMENT: 01/14/24 girl Dariusn JaydaV (2) H/O depression, currently : COMMENT: no meds. stable PLAN: Plan s/p PPD # 1 1. routine post delivery care 2. breast feeding- support given 3. rh positive 4. rubella immune 5. d/c home today.
[2024-01-15] MEDS: Ibuprofen 600 MG Tablet PO (08:32)
[2024-01-15] MEDS: Senna/Docusate Sodium 1 Tablet PO (08:35)
[2024-01-15 08:37] VITALS: BP 108/72; PULSE 81; RESP 16; TEMP 36.5; O2SAT 99
[2024-01-15] MEDS: Acetaminophen 500 MG Tablet 1000 MG PO (10:14)
--- NOTE | 2024-01-15 10:50 | CASEMGMT ---
Social Work Assessment Labor and Delivery Unit Patient Address:[address] [place] [address] Phone number: [phone] Date of Referral: 01/14/24 Time of Referral:? 344 Referred By: Radha Jin Date of Intervention: ?01/15/24? Time of Intervention:?0900 Reason for Referral:? anxiety, PPD Sw completed chart review and acknowledges social work consult due to maternal mental health and history of depression. Sw presented to bedside and introduced self to mother of baby (MATTEO- Nayeli) and father of baby (FOEvaristo- Tom). Sw explained sw role during hospitalization. Sw completed psychosocial assessment and asked MOB to complete an [place] Depression Scale. History obtained from: medical records, MOB and FOB Household composition: Currently residing in the family home is CRISTY FELIPE, their two older daughters (Suyapa and Aurora) and now baby. Parents deny any issues or concerns with their housing. Patient's parent/guardian status:? MATTEO reports that she and CRISTY were introduced to each other by CRISTY's brother. They have now been together for 7 years, for 5. MATTEO denies and concerns of domestic violence or intimate partner violence. ? Medical History: ?MATTEO is 28 year old female who is 3, para 2- now 3 following labor and delivery. MATTEO received routine care during with [place]. MATTEO delivered baby on 01/14/24 at 37 weeks gestation via vaginal delivery. Baby girl, named Gissel Woodall, was born weighing 6lb 11oz and her apgars were 9 and 9 at one and five minutes of life, respectfully. MATTEO states that she is breast feeding and this is going well. Baby will be followed by Dr. Garcia at [facility] pediatrics in [place]. Educational Status:? both parents graduated from high school. CRISTY has his undergrad in social work. Financial Status: CRISTY is gainfully employed outside of the home working on the [employer]. 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 Infant Supplies:??Parents have obtained all necessary baby supplies, including: car seat, safe sleep space, clothes, diapers and wipes. Childcare/Caregiver(s):? MOB is the primary caregiver to baby, along with FOB when he is not working. MOB works nights when she works for [employer] so baby and siblings are cared for by CRISTY or other family members. Transportation:?? No barriers. Programs/Agencies Involved: ???Parents are connected to insurance provided by [employer] (Medicaid). They are not connected to any other financial services or providers. Children Services/Legal Issues:?No history of children services involvement. NO issues or concerns warranting referral to be made at this time. ?? Behavioral Health Issues: ??Mental Health History: CRISTY denies mental health history. MATTEO states that she has been diagnosed with anxiety and did experience depression following her prior pregnancies/ deliveries. MOB completed [place] depression scale and her score was a 9. Sw provided education and support. MATTEO stated that in the past she starts to experience anxiety around 6 weeks MOB states that she is able to recognize that spending time with family is helpful. MATTEO reports that she has also talked to counselors and has been on medication (zoloft, 50 mg) to help manage her mental health symptoms. MATTEO is prescribed zoloft at this time. ??? Substance Use History:?MATTEO denies substance use prior to and during . ? Family History:?Parents deny family history of substance use/ addiction and significant mental health diagnoses such as bipolar and schizophrenia. ? Drug Screens: ??No drug screens observed during chart review. Family/Social Stressors:? Parents deny any issues, concerns or stressors at this time. Support Systems: MATTEO states that CRISTY and her family are her biggest supports. Depression/Shaken Baby/Safe Sleeping:? Sw educated parents on signs and symptoms of baby blues and depression and anxiety. Parents express understanding. CRISTY states that he believes he would be able to recognize when MOB is struggling and would know how to help and support her. Sw educated parents on shaken baby prevention and ABCs of safe sleep. Parents express understanding. ASSESSMENT:? MOB and baby admitted following labor and delivery. Parents report they have natural supports in place and have obtained all necessary baby supplies. MATTEO with mental health history positive for anxiety and she has experienced depression following her last two pregnancies. MOB completed [place] depression scale, her score was a 9. Sw provided support and education. Parents were observed providing loving and appropriate hands on care of . PLAN:? MOB and baby to be discharged when medically ready. ?No other services requested or indicated. Vimal Atkinson, BAGGING SALVAGER, DOUBLE CUTTER
== END 2024-01-15 11:00 | disposition home or self-care (01) | DRG 560 ==
PROVIDERS: Admitting Provider Obstetrics & Gynecology; Visit Provider Obstetrics & Gynecology
DX: O41.03X0 Oligohydramnios, third trimester, not applicable or unspecified (principal); Z37.0 Single live birth; Z3A.37 37 weeks gestation of pregnancy; Z86.59 Personal history of other mental and behavioral disorders
CPT/HCPCS: 59025; 59050; 85025; 86780; 86850; 86900; 86901; 99221; J7120; A4216; G0378; J2405

== ENCOUNTER → 2024-06-10 | Outpatient (CLI) | payer MEDICAID, SELFPAY ==
[2024-06-10 13:00] LABS: T4 Free Direct 0.97 ng/dL (0.76-1.46); Thyroid Stim Hormone (TSH) 0.836 uIU/mL (0.358-3.740)
[2024-06-13 17:07] LABS: T3 Reverse 11.4 ng/dL (9.2-24.1)
== END | disposition home or self-care (01) ==
LOC: BIMLAB 11:02
PROVIDERS: PCP Physician Assistant; Visit Provider Physician Assistant
DX: R53.83 Other fatigue (principal)
CPT/HCPCS: 36415; 84436; 84439; 84443; 84482

== ENCOUNTER → 2024-11-18 | Outpatient (CLI) | payer MEDICAID, SELFPAY ==
[2024-11-18 12:46] LABS: Absolute Lymphocyte Count 2.13 X10^3/uL (0.83-4.51); Basophil# 0.03 X10^3/uL; Basophil% 0.5 % (0-1); Eosinophil# 0.14 X10^3/uL; Eosinophils% 2.5 % (0-5); Hematocrit 39.5 % (37-47); Hemoglobin 12.7 g/dL (12.0-15.0); Lymphocyte # 2.13 X10^3/ul (0.83-4.51); Lymphocyte % 37.7 % (19-41); Mean Corp Hgb Conc 32.2 g/dL (32-36); Mean Corpuscular Hgb 28.5 pg (27.0-32.0); Mean Corpuscular Volume 88.6 fL (81-99); Monocyte# 0.37 X10^3/uL; Monocyte% 6.5 % (0-10); NRBC Flagged by Analyzer 0 % (0-5); Neutrophil # 2.97 X10^3/uL (2.7-7.7); Neutrophil % 52.6 % (47-70); Platelet Count 215 K/mm3 (150-450); RBC Distribution Width CV 12.5 % (11.6-14.6); RBC Distribution Width SD 40.5 fl (35.1-43.9); Red Blood Count 4.46 M/mm3 (4.2-5.4); White Blood Count 5.7 K/mm3 (4.4-11.0)
[2024-11-18 13:29] LABS: ALB/GLOB Ratio 1.1 RATIO (0.9-2.4); AST(SGOT) 10 U/L (15-37); Alanine Aminotransfer ALT/SGPT 24 U/L (13-56); Albumin, Serum 3.9 g/dL (3.2-5.0); Alkaline Phosphatase 78 U/L (45-117); Anion Gap 5 (5-15); BUN 12 mg/dL (7-18); BUN/Creat Ratio 17.6 RATIO (10-20); Calcium,Total 9.5 mg/dL (8.5-10.1); Chloride 107 mmol/L (98-107); Creatinine, Serum 0.68 mg/dL (0.55-1.02); EST Glomerular Filtration Rate 110 mL/min (>60); Est Glom Filt Rate - Afr Amer 133 mL/min (>60); Globulin 3.6 g/dL (2.2-4.2); Glucose 82 mg/dL (74-106); Potassium 3.6 mmol/L (3.5-5.1); Protein, Total 7.5 g/dL (6.4-8.2); Sodium Level 141 mmol/L (136-145); Vitamin D,25 Hydroxy 20.8 ng/mL
[2024-11-23 09:07] LABS: Anti-Nuclear Antibody Test Negative (.)
== END | disposition home or self-care (01) ==
LOC: BIMLAB 09:51
PROVIDERS: Internal Medicine; PCP Physician Assistant; Referring Provider Physician Assistant; Visit Provider Physician Assistant
DX: R53.83 Other fatigue (principal)
CPT/HCPCS: 36415; 80053; 82306; 85025; 86038

== ENCOUNTER → 2025-05-27 | Outpatient (CLI) | payer MEDICAID, SELFPAY ==
[2025-05-31 20:08] LABS: Chlamydia By Nucleic Acid AMP Negative (Negative); Gonococcus By Nucleic Acid AMP Negative (Negative)
== END | disposition home or self-care (01) ==
LOC: LABSPEC 16:07
PROVIDERS: PCP Internal Medicine; Referring Provider Advanced Practice Midwife; Visit Provider Advanced Practice Midwife
DX: O09.90 Supervision of high risk pregnancy, unspecified, unspecified trimester (principal); Z3A.00 Weeks of gestation of pregnancy not specified
CPT/HCPCS: 87086; 87491; 87591

== ENCOUNTER → 2025-06-16 | Outpatient (CLI) | payer MEDICAID, SELFPAY ==
--- OUTSIDE RECORDS SUMMARY | 2025-06-16 06:15 | XMS RPT_ITS | CCD ---
Author Organization [facility] Care Team Providers Care Glass Ribbon Machine Operator Name Role Phone Mady Farrell Primary Care Provider [phone] LIZET THOMAS Attending Unavailable MADY FARRELL Primary Care Unavailable MADY FARRELL Attending Unavailable MADY FARRELL Primary Care Unavailable DANIELA WALTON Attending Unavailable Love Barnhart Attending Unavailable Love Barnhart Admitting Unavailable No Doctor Assigned, Nodr Primary Care Unavail able No Doctor Assigned, Nodr Primary Care Unavail able Love Barnhart Consulting Unavailable Bo Weir Admitting Unavailable Bo Weir Attending Unavailable Parmjit Enrique Primary Care Provider Parmjit Enrique Primary Care Provider Parmjit Enrique MD Primary Care Provider Parmjit Enrique MD Primary Care Provider [phone] Dr. Fanta Zarate Attending Provider CHICO Virk Attending Provider [phone] Care Physician, No Primary Primary Care Provider Unavailable Care Physician, No Primary Referring Provider Un available Dr. Fanta Zarate Attending Provider CHICO Virk Attending Provider Care Physician, No Primary Primary Care Provider Unavailable Care Physician, No Primary Referring Provider Un available Ivan SENIOR PRODUCTION SUPERVISOR, MANINDER Guzman Attending Provider Care Physician, No Primary Primary Care Provider Unavailable Care Physician, No Primary Referring Provider Un available Dr. Fanta Zarate Attending Provider [phone] MANINDER Love NP Attending Provider Dr. Radha Jin Attending Provider [phone] Care Physician, No Primary Primary Care Provider Unavailable Care Physician, No Primary Referring Provider Un available Dr. Fanta Zarate Attending Provider [phone] Dr. Fanta Zarate Referring Provider [phone] Dr. Fanta Zarate Other Provider [phone] Dr. Fanta Zarate Admit Provider [phone] Dr. Radha Jin Admit Provider Dr. Radha Jin Other Provider CHICO Park Attending Provider [phone] NO PRIMARY CARE, MD Primary Care Unavailable MELANI MEHTA Referring Unavailable BRITTANY LEVY Attending Unavailable Dr. Laureen Rasmussen MD Primary Care Provider [phone] Beryl Kamara RN Attending Provider UnavailDr. Laureen Johnson MD Referring Provider Juliet Virk CNM Attending Provider [phone] Juliet Virk CNM Referring Provider [phone] [place], Laureen Primary Care Unavailable [place], Laureen Referring Unavailable Juliet Virk Attending Unavailable Beryl Kamara Attending Unavailable [place], Laureen Primary Care Unavailable Care Physician, No Primary Referring Unava ilable Care Physician, No Primary Primary Care Unava ilable Sagar Veronica Attending Unavailable Wayt PA, Sagar Primary Care Unavailable Wayt PA, Sagar Attending Unavailable Wayt PA, Sagar Primary Care Unavailable Sagar Veronica Attending Unavailable Farzad CANTRELL, Sagar Referring Unavailable Juliet Virk Referring Unavailable Grady, Laureen Primary Care Unavailable Juliet Virk Attending Unavailable Care Physician, No Primary Referring Unava ilable [place], Laureen Primary Care Unavailable Grady Laureen Attending Unavailable Allergies Allergy Classification Reported Allergen(s) Allergy Type Date of Onset Reaction(s) Facility (1 source) No Known Medication Allergies; Translations: [No Known Medication Allergies] Propensity to adverse reactions to drug (disorder) [facility] Repository Medications Current Medications Medication Drug Class(es) Dates Sig (Normalized) Sig (Original) alginic acid 200 mg / calcium carbonate 80 mg / magnesium trisilicate 20 mg / sodium bicarbonate 70 mg oral tablet (16 sources) calcium carbonat e 500 MG Chew Tab tablet Chew 500 mg daily as needed. 0 Active calcium carbonate 500 mg chewable tablet (17 sources) calcium carbonat e 500 MG Chew Tab tablet Chew 500 mg daily as needed. 0 Active ergocalciferol 1.25 mg oral capsule (2 sources) Provitamin D2 Compound take 1 capsule by mouth every week ergocalciferol 1.25 MG (14471 UT) capsule Take 50,000 Units by mouth once a week. 0 Active Qaitagbe-Efv-Hk-Fa () 1 mg Tablet (15 sources) Start: 04-23-2022 take 1 tablet by mouth once daily Esxksuef-Yre-Fd-Fa () 1 mg Tablet Active 1 {tbl} PO DAILY April 23, 2022 12:00am Start: 04-23-2022 take 1 tablet by soledad th once daily Fcaemkby-Oua-Ki-Fa () 1 mg Tablet Active 1 TABLET PO DAILY April 22, 2022 11:00pm Start: 04-23-2022 take 1 tablet by soledad th once daily Nikxeawu-Fkt-Yx-Fa () 1 mg Tablet Active 1 TABLET PO DAILY April 23, 2022 12:00am Vit-Fe Fumarate-FA ( 1 PLUS 1 PO) (20 sources) Vit-Fe Fumarate-FA ( 1 PLUS 1 PO) Take by mouth daily. 0 Active Vit-Fe Fumarate-FA ( 1 PLUS 1 PO) Take by mouth. 0 Active Completed/Discontinued Medications Medication Drug Class(es) Dates Sig (Normalized) Sig (Original) Acetaminophen (20 sources) Start: 01-02-2024 End: 01-13-2024 take 2 capsules by mouth every four hours as needed for pain Acetaminophen (Tylenol) 325 mg capsule Discontinued 650 mg PO Q4H as needed for pain January 02, 2024 12:00am January 13, 2024 12:47pm Start: 01-02-2024 End: 01-13-2024 TylenoL 1000 mg Discontinued January 02, 2024 12:00am January 13, 2024 12:47pm Start: 01-02-2024 TylenoL 1000 m g Active January 02, 2024 12:00am Start: 11-24-2020 acetaminophen (TYLENOL) tablet 650 mg take 1 tablet by soledad every four hours as needed acetaminophen 325 MG tablet Take 325 mg by mouth every 4 hours as needed. 0 Active acetaminophen 325 mg / HYDROcodone bitartrate 5 mg oral tablet (6 sources) Opioid Agonist Start: 04-28-2020 End: 06-30-2020 take 1-2 tablets by mouth every four hours as needed hydroCODone-acetaminophen 5-325 MG tablet Indications: Post-op pain Take 1-2 tablets by mouth every 4 hours as needed for up to 7 days. 25 tablet 0 04/28/2020 06/30/2020 Discontinued (Therapy completed) Start: 04-28-2020 End: 04-28-2020 take 1-2 tablets by mouth every four hours as needed hydroCODone-acetaminophen (NORCO) 5-325 MG per tablet 1-2 tablet acyclovir 200 mg oral capsule (1 source) Herpesvirus Nucleoside Analog DNA Polymerase Inhibitor, Herpes Simplex Virus Nucleoside Analog DNA Polymerase Inhibitor, Herpes Zoster Virus Nucleoside Analog DNA Polymerase Inhibitor Start: 08-21-2018 End: 08-31-2018 take 2 capsules by mouth twice daily acyclovir (ZOVIRAX) 200 MG capsule Take 2 (two) capsules (400 mg total) by mouth 2 (two) times a day for 10 days . 90 capsule 11 08/21/2018 08/31/2018 cephalexin 500 mg oral tablet (4 sources) Cephalosporin Antibacterial Start: 11-24-2024 End: 12-01-2024 take 1 tablet by mouth twice daily Cephalexin 500 mg tablet Discontinued 500 mg PO TWICE A DAY 14 7 0 November 24, 2024 1:00am November 30, 2024 1:00am December 01, 2024 1:12am Start: 02-26-2021 End: 03-05-2021 take 1 capsule by mouth every twelve hours cephALEXin 500 MG capsule Take 1 capsule by mouth every 12 hours for 7 days. 14 capsule 0 02/26/2021 03/05/2021 Active Start: 08-21-2018 take 1 capsule by mo [facility] four times daily cephALEXin (KEFLEX) 500 MG capsule Take 1 (one) capsule (500 mg total) by mouth 4 (four) times a day . 40 capsule 0 08/21/2018 Active cholecalciferol 0.05 mg oral capsule (4 sources) Vitamin D Start: 06-10-2024 End: 05-14-2025 take 1 capsule by mouth once daily Cholecalciferol (Vitamin D3) 50 mcg (2,000 unit) capsule Discontinued 5000 U PO DAILY June 10, 2024 9:56am May 14, 2025 10:54am Start: 02-24-2024 End: 06-10-2024 take 1 capsule by mouth once daily Cholecalciferol (Vitamin D3) 50 mcg (2,000 unit) capsule Discontinued 50 ug PO DAILY February 24, 2024 12:00am June 10, 2024 9:57am 1 ml diphenhydrAMINE hydrochloride 50 mg/ml cartridge (1 source) Histamine-1 Receptor Antagonist Start: 11-24-2020 End: 11-24-2020 diphenhydrAMINE (BENADRYL) injection 50 mg Start: 11-24-2020 End: 11-24-2020 diphenhydrAMINE (BENADRYL) i njection 50 mg docosanol (20 sources) Start: 06-07-2022 End: 01-13-2024 Dawson Discontinued 1 NMA OT HER DAILY as needed for Cold Sores June 07, 2022 12:00am January 13, 2024 12:47pm Start: 06-07-2022 End: 01-13-2024 Dawson Discontinued 1 TUBE O THER DAILY June 07, 2022 12:00am January 13, 2024 12:47pm Start: 06-07-2022 Abreva Active 1 TUBE OTHER DAILY June 06, 2022 11:00pm Start: 06-07-2022 Abreva Active 1 TUBE OTHER DAILY June 07, 2022 12:00am Start: 04-04-2020 End: 02-08-2021 docosanol (Abreva) 10 % Crea m cream Indications: Hx of cold sores Apply 1 Application topically 5 times daily. 2 g 02/09/2021 Active Start: 02-04-2020 docosanol (Abr yg) 10 % Cream cream Indications: Hx of cold sores Apply 1 Application topically 5 times daily. 2 g 02/04/2020 Active escitalopram 10 mg oral tablet (6 sources) Serotonin Reuptake Inhibitor Start: 12-16-2024 End: 05-14-2025 take 1 tablet by mouth once daily Escitalopram Oxalate 10 mg tablet Discontinued 10 mg PO DAILY 30 March 02, 2025 10:50am May 14, 2025 10:54am Start: 11-19-2024 End: 12-16-2024 take 0.5 tablet by mouth once daily, then take 1 tablet by mouth once daily Escitalopram Oxalate (Lexapro) 10 mg tablet Discontinued 10 mg PO daily 05 11November 19, 2024 1:00am December 16, 2024 12:39pm take 1/2 tablet daily for 1 week then increase to 1 tablet daily ethinyl estradiol 0.035 mg / norgestimate 0.25 mg oral tablet (11 sources) Progestin, Estrogen Start: 04-04-2020 End: 06-30-2020 take 1 tablet by mouth once daily norgestimate-ethinyl estradiol (Sprintec 28) 0.25-35 MG-MCG tablet Take 1 tablet by mouth daily. 1 Package 10 04/04/2020 06/30/2020 Discontinued (Therapy completed) Start: 02-01-2020 End: 02-01-2020 take 1 tablet by mouth once daily norgestimate-ethinyl estradiol (Sprintec 28) 0.25-35 MG-MCG tablet Take 1 tablet by mouth daily. 1 Package 12 02/01/2020 Active ferrous sulfate 325 mg oral tablet (2 sources) Start: 02-24-2024 End: 05-14-2025 take 1 tablet by mouth once daily Ferrous Sulfate 325 mg (65 mg iron) tablet Discontinued 325 mg PO DAILY February 24, 2024 12:00am May 14, 2025 10:54am gentamicin (GARAMYCIN) 80 mg in sodium chloride 0.9 % 500 mL irrigation solution (1 source) Start: 04-28-2020 End: 04-28-2020 gentamicin (GARAMYCIN) 80 mg in sodium chloride 0.9 % 500 mL irrigation solution ibuprofen 800 mg oral tablet (2 sources) Nonsteroidal Anti-inflammatory Drug Start: 02-14-2021 End: 08-24-2021 take 1 tablet by mouth every six hours as needed ibuprofen 800 MG tablet Take 1 tablet by mouth every 6 hours as needed for Mild Pain. 30 tablet 1 02/14/2021 08/24/2021 Discontinued loratadine 10 mg oral tablet (20 sources) Start: 06-24-2023 End: 01-13-2024 take 1 tablet by mouth once daily Loratadine (Claritin) 10 mg tablet Discontinued 10 mg PO DAILY June 24, 2023 12:00am January 13, 2024 12:47pm Start: 06-21-2020 End: 02-08-2021 take 1 tablet by mouth once daily loratadine (Claritin) 10 MG tablet Take 1 tablet by mouth daily. 90 tablet 1 02/09/2021 Active 2 ml metoclopramide 5 mg/ml prefilled syringe (1 source) Dopamine-2 Receptor Antagonist Start: 11-24-2020 End: 11-24-2020 metoclopramide (REGLAN) injection 10 mg metroNIDAZOLE 500 mg oral tablet (6 sources) Nitroimidazole Antimicrobial Start: 12-11-2023 End: 12-18-2023 take 1 tablet by mouth twice daily Metronidazole 500 mg tablet Discontinued 500 mg PO TWICE A DAY 14 7 0 December 11, 2023 1:00am December 17, 2023 12:00am December 18, 2023 12:08am norethindrone 0.35 mg oral tablet (2 sources) Start: 02-14-2021 End: 08-24-2021 take 1 tablet by mouth once daily norethindrone (Ortho Micronor) 0.35 MG tablet Take 1 tablet by mouth daily. 28 tablet 12 02/14/2021 08/24/2021 Discontinued ondansetron 4 mg oral tablet (10 sources) Serotonin-3 Receptor Antagonist Start: 06-13-2023 End: 01-13-2024 take 1 tablet by mouth every six hours Ondansetron Hcl 4 mg tablet Discontinued 4 mg PO EVERY 6 HOURS June 13, 2023 12:00am January 13, 2024 12:47pm Start: 04-28-2020 End: 04-28-2020 take 4 mg intravenous route every four hours as needed ondansetron 4mg/2ml (ZOFRAN) injection 4 mg sertraline 50 mg oral tablet (20 sources) Serotonin Reuptake Inhibitor Start: 11-13-2023 End: 11-19-2024 take 1 tablet by mouth once daily Sertraline (Zoloft) 50 mg tablet Discontinued 50 mg PO DAILY 90 4 November 13, 2023 1:00am November 19, 2024 4:33pm anxiety Start: 06-07-2022 End: 06-13-2023 take 1 tablet by mouth once daily Sertraline (Zoloft) 50 mg Tablet Discontinued 50 mg PO DAILY June 07, 2022 12:00am June 13, 2023 3:12pm anxiety Start: 03-27-2021 take 2 tablets by mo [facility] once daily sertraline 25 MG tablet Take 2 tablets by mouth daily. 60 tablet 11 03/27/2021 Active Start: 12-12-2020 take 1 tablet by soledad once daily sertraline 25 MG tablet Take 1 tablet by mouth daily. 30 tablet 4 12/12/2020 Active 250 ml sodium chloride 9 mg/ ml injection (5 sources) Start: 11-24-2020 End: 11-25-2020 sodium chloride 0.9% IV solution 1,000 mL Start: 11-24-2020 End: 11-25-2020 sodium chloride 0.9% IV solu tion Start: 04-28-2020 End: 04-28-2020 sodium chloride 0.9% IV solu tion valACYclovir 1000 mg oral tablet (20 sources) Herpesvirus Nucleoside Analog DNA Polymerase Inhibitor, Herpes Simplex Virus Nucleoside Analog DNA Polymerase Inhibitor, Herpes Zoster Virus Nucleoside Analog DNA Polymerase Inhibitor Start: 11-18-2024 End: 03-24-2025 Valacyclovir (Valtrex) 1 gram tablet Discontinued 2000 mg PO TWICE A DAY as needed for cold sore 4 0 November 18, 2024 4:59pm March 24, 2025 11:01am Start: 11-18-2024 End: 11-18-2024 Valacyclovir (Valtrex) 1 gra m tablet Discontinued 1000 mg PO TWICE A DAY as needed for cold sore November 18, 2024 1:00am November 18, 2024 4:59pm Start: 06-07-2022 End: 01-13-2024 take 2 tablets by mouth twice daily as needed Valacyclovir 500 mg Tablet Discontinued 1000 mg PO TWICE A DAY as needed for Cold Sores June 07, 2022 12:00am January 13, 2024 12:47pm Start: 06-07-2022 End: 01-13-2024 take 1000 mg by mouth twice daily Valacyclovir Discontinued 1000 MG PO TWICE A DAY June 07, 2022 12:00am January 13, 2024 12:47pm Start: 04-04-2020 End: 02-08-2021 take 2 tablets by mouth twice daily valacyclovir 1 g tablet Indications: Hx of cold sores Take 2 tablets by mouth 2 times daily. 4 tablet 11 02/09/2021 Active Start: 02-04-2020 take 2 tablets by mo uth twice daily valacyclovir 1 g tablet Indications: Hx of cold sores Take 2 tablets by mouth 2 times daily. 4 tablet 11 02/04/2020 Active End: 02-04-2020 VALACYCLOVIR HCL PO Take by mouth 2 times daily as needed. 0 02/04/2020 Discontinued witch dottie 500 mg/ml medicated pad (2 sources) Start: 02-14-2021 End: 08-24-2021 witch dottie-glycerin Pads Ap ply 1 Application topically as needed. 50 Each 1 02/14/2021 08/24/2021 Discontinued Problems Active Problems Problem Classification Problem Date Documented Da te Episodic/Chronic Abdominal pain (1 source) Epigastric pain; Translations: [Epigastric pain] Onset: 12-15-2018 Episodic Anxiety disorders (13 sources) Anxiety; Translations: [Anxiety disorder, unspecified] Onset: 02-02-2021 Chronic Comment on above: Stable, No meds Coagulation and hemorrhagic disorders (2 sources) Blood coagulation disorder; 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] Onset: 06-14-2020 06-14-2020 Chronic distress and abnormal forces of labor (1 source) Finding of uterine contractions; Translations: [Other uterine inertia] Episodic Fetopelvic disproportion; obstruction (6 sources) Shoulder girdle dystocia; Translations: [Obstructed labor due to shoulder dystocia] 11-28-2023 Episodic Genitourinary symptoms and ill-defined conditions (1 [...] 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 stable Other complications of (20 sources) Supervision of high risk , unspecified, unspecified trimester; Translations: [Supervision of unspecified high-risk ] Onset: 06-02-2025 06-24-2023 Episodic Other complications of (4 sources) History of shoulder dystocia; Translations: [Supervision of with other poor reproductive or obstetric history, unspecified trimester] 05-14-2025 Episodic Comment on above: 2nd : 7lbs 11oz, last delivery was fine Other complications of (4 sources) H/O: ; Translations: [Supervision of with other poor reproductive or obstetric history, unspecified trimester] 05-27-2025 Episodic Comment on above: growth US 36 Other complications of (1 source) Supervision of with other poor reproductive or obstetric history, unspecified trimester; Translations: [Supervision of with other poor reproductive or obstetric history, unspecified trimester] Onset: 05-27-2025 Episodic Other complications of (2 sources) Anxiety [...] ] Episodic Other and delivery including normal (20 sources) Normal ; Translations: [Encounter for supervision of normal first , third trimester] Onset: 02-12-2021 Episodic Comment on above: 01/14/24 girl Cassius CHUN Declines genetic/car rier testing normal anatomy, decl ined genetic, ntd, & carrier testing Other skin disorders (1 source) Alopecia; Translations: [Alopecia] Episodic Other upper respiratory disease (9 sources) Seasonal allergy; Translations: [Other seasonal allergic rhinitis] 06-13-2023 Chronic Other upper respiratory disease (2 sources) Deviated nasal septum; Translations: [Nasal septal deviation] Onset: 08-21-2018 08-21-2018 Episodic Polyhydramnios and other problems of amniotic cavity (8 sources) Oligohydramnios; Translations: [Oligohydramnios, third trimester, not applicable or unspecified] 01-13-2024 Episodic Comment on above: recommend IOL Residual codes; unclassified (1 source) Past history [...] ] Episodic Residual codes; unclassified (1 source) 9 weeks gestation of ; Translations: [9 weeks gestation of ] Onset: 05-27-2025 Episodic Residual codes; unclassified (1 source) Gestation period, 16 weeks; Translations: [16 weeks gestation of ] Screening and history of mental health and substance abuse codes (1 source) Personal history of other mental and behavioral disorders; Translations: [Personal history of other mental and behavioral disorders] Onset: 05-27-2025 Episodic Thyroid disorders (5 sources) Luis Felipe thyroiditis; Translations: [Autoimmune thyroiditis] Onset: 05-27-2025 05-14-2025 Chronic Comment on above: - self re solved/no tx; Thyroid labs ordered w/NOB Unclassified (6 sources) Patient encounter status; Translations: [Well adult exam] Onset: 08-21-2018 08-21-2018 Unclassified (1 source) Cancer cervix screening status; Translations: [Screening for cervical cancer] Unclassified (1 source) Other specified diseases and conditions complicating ; Translations: [Other specified diseases and conditions complicating ] Onset: 05-27-2025 Past or Other Problems Problem Classification Problem Date Documented Date Episodic/Chronic Contraceptive and procreative management (1 source) Oral contraception; Translations: [Encounter for surveillance of contraceptive pills] Episodic Malaise and fatigue (3 sources) Fatigue; Translations: [Other fatigue] Onset: 12-03-2024 05-14-2025 Episodic Other complications of (8 sources) Streptococcus agalactiae infection; Translations: [Other maternal infectious and parasitic diseases complicating , unspecified trimester] Onset: 02-02-2021 Resolved: 03-27-2021 02-02-2021 Episodic Other upper respiratory disease (2 sources) [...] Translations: [Impetigo, unspecified] Onset: 08-21-2018 08-21-2018 Episodic Unclassified (20 sources) History of shoulder dystocia; Translations: [History of shoulder dystocia] 06-24-2023 Comment on above: 2nd : 7 lb 11 ounces Viral infection (4 sources) Herpesviral gingivostomatitis and pharyngotonsillitis; Translations: [Oral herpes simplex infection] Onset: 08-21-2018 08-21-2018 Episodic Results Test Name Value Interpretation Reference Range Facility Chlamydia/GC JIMMY aptimaon CHLAMY,NUC ACID Negative Normal Negative [facility] Comment on above: Performed By: #### L 7000.1800, M100.2200 #### [facility] [address] [place], [address] GC BY NUC ACID Negative Normal Negative [facility] Comment on above: Result Comment: Perf ormed at: =G - [facility] [address] [place], [place] [id number] [employer] Supervisor: Leta Holt MD, Phone: [phone] Performed By: #### L 7000.1800, M100.2200 #### [facility] [address] [place], [address] Urine Cultureon 05-28-2025 [facility] Culture exhibits no growth. Normal [facility] Comment on above: Performed By: #### L 7000.1800, M100.2200 #### [facility] [address] [place], [address] Chlamydia trachomatis rRNA d etection by probe and target amplification methodOrdered By: Juliet Virk on 05-27-2025 C. trachomatis rRNA JIMMY+probe Ql (Unsp spec) Negative Negative [facility] Neisseria gonorrhoeae nuclei c acid detection by amplified probe techniqueOrdered By: Juliet Virk on 05-27-2025 N. gonorrhoeae DNA JIMMY+probe Ql (Unsp spec) Negative Negative [facility] Comment on above: Performed at: =G - [facility] [id number] [place], [place] [id number] Director: Leta Holt MD, Phone: [phone] Public Improvement Inspector Office Visit Reporton 05-27-2025 Public Improvement Inspector Office Visit Report [address], [address] [place] [address] OFFICE VISIT Date of Service: 05/27/25 MR#: [id number] Acct: [id number] Name: NAYELI HERNANDEZ Rep #: [id number] : 1995 Provider: CHICO Garrido ams Age/Sex: 29/F Location: [facility] [place] Status: Signed Intake Vital Signs 11/18/24 08:47 04/27/25 14:36 05/27/25 14:55 Height 5 ft 2 in 5 ft 2 in 5 ft 2 in Weight: 164 lb BMI 29.9 BP 106/71 Intake Visit Reasons: *EST* NOB LMP 03/20, PRANAY 12/25 Chief Complaint: New OB Dipper And Drier Required: No Is patient in pain?: No Allergies No Known Allergies Allergy (Verified 05/27/25 14:54) Medications ???Medication ???Instructions ???Recorded ???Confirmed ???Type iszednqv-kcn-Lu-FA 1 mg 1 tab PO DAILY 04/23/22 05/27/25 History tablet valacyclovir 1 gram tablet 2,000 mg (2 x 1 gram) PO BID PRN 0 03/24/25 05/27/25 Rx (Valtrex) cold sore #4 tabs Last Menstrual Period: 03/20/25 PFSH PFSH Medical History History of shoulder dystocia Anxiety depression Seasonal allergies Family history of autistic disorder Surgical History [place] teeth extracted History of surgery Family History Grandmother Breast cancer, Onset Age: 65 maternal Aunt Breast cancer, Onset Age: 60 Maternal Sister Thyroid disorder Mother Thyroid disorder Hypertension Sister Thyroid disorder Father Hypertension Social History adopted: No household members: spouse and children number of children: 3 current occupational status: employed 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 [employer] current occupational exposures/hazards: No pets and animals: Yes pets and animals: dog(s) history of recent travel: Yes ( - April 2025) out of state: Yes out of country: No sexually active: Yes Smoking Status: Never smoker second hand exposure: No alcohol intake: current alcohol intake frequency: a few times a month details: Not while substance use type: does not use well-balanced diet: daily or most days caffeine: Yes Type: carbonated beverages Number of servings: 1 eating out: 1-3 times/week during the past year weight has: remained stable what type of physical activity do you participate in: walking frequency: 1-2 times per week duration: 15-30 minutes/day tigre/baptism: [employer]ist seatbelt use: always do you feel safe at home: Yes additional social history: : Ericka Montalvoer, 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 Date Name GA/Weeks Outcome Route Bth Weight Gen Labor Lgth Anesthesia Del Locatn Provider FOB 02/12/21 Suyapa 39 live - full term 7#.04oz Female epidural Suzan Ericka 06/21/22 [place] 39 live - full term 7#11oz Female epidural [facility] Lise Diana Ericka 01/14/24 Merelyn 37 live - full term 6lbs 11oz Female epidural [facility] [facility] Delivery Date: 02/12/21 Last Updated by: Huma Dietrich IOL- failure to progress, head stuck on hip Delivery Date: 06/21/22 Last Updated by: Huma Dietrich IOL-early labor 2 wks, shoulder dystocia Delivery Date: 01/14/24 Last Updated by: Beryl Kamara RN IOL 37 oligo HPI *EST* NOB LMP 03/20, PRANAY 12/25 Details: NAYELI HERNANDEZ is a 29 year old who presents for New OB visit. OB Visit PRANAY Calculator Estimated Delivery Date Method Current WG Current Estimate 01/03/26 Ultrasound #1 8w 3d Other Estimates 12/25/25 LMP (Certain) 9w 5d Estimated Due Date: 12/25/25 Expected Delivery Route/Plan Labor Preferences- CB/BF classes: [] labor support person: [] labor intervention preferences: [] pain management options preferred: [] cut cord/dad catch: [] : [] PP control planned: [] discussed possible routes of delivery and associated risks: [] special requests: [] Specific Issue/Plans Covid status: [] Flu vaccine: [] Tdap vaccine: [] Rhogam: [] LARC form signed: [] Problem list reviewed and updated with the most current plan of care details and appropriate orders placed. Relevant counseling for the gestational age provided. Continue routine care and follow up unless otherwise noted in visit notes/problem list details Initial Weight: 164 lb Date -???-???-???-???-???-???-? ??-???-???-???-???-???- EGA Weight BP Urine Prot -???-???-???-???-???-???-? ??-???-???-???-???-???- Glucose FHR FuHt Pres D (more content not included)... Normal [facility] Urine cultureOrdered By: Doni Virk on 05-27-2025 Bacteria identified Cx Nom (U) Culture exhibits no growth. [facility] Antinuclear Antibody, IFAon 11-23-2024 EUNICE, IFA Negative Normal . [facility] Comment on above: Result Comment: Nega tive <1:80 Borderline 1:80 Positive >1:80 ICAP nomenclature: AC-0 For more information about Hep-2 cell patterns use ANApatterns.org, the official website for the International Consensus on Antinuclear Antibody (EUNICE) Patterns (ICAP). Performed at: [facility] [address] [id number] [employer] Supervisor: Federico Tavarez PhD, Phone: [phone] Performed By: #### L 3100.7950, L100.0100, L506.1000, L500.4050 #### [facility] [address] [place], [address] CBC W/Diff, Automatedon 11-07 Absolute Lymph 2.13 X10 3/uL Normal 0.83-4.51 [facility] Comment on above: Performed By: #### L 3100.7950, L100.0100, L506.1000, L500.4050 #### [facility] [address] [place], [address] Absolute Neut 3.0 X10 3/uL Normal 2.0-7.7 [facility] Comment on above: Performed By: #### L 3100.7950, L100.0100, L506.1000, L500.4050 #### [facility] [address] [place], [address] Basophils/100 WBC (Bld) 0.5 % Normal 0-1 [facility] Comment on above: Performed By: #### L 3100.7950, L100.0100, L506.1000, L500.4050 #### [facility] [address] [place], [address] Eosinophils/100 WBC (Bld) 2.5 % Normal 0-5 [facility] Comment on above: Performed By: #### L 3100.7950, L100.0100, L506.1000, L500.4050 #### [facility] [address] [place], [address] Erythrocyte distribution width (RBC) [Ratio] 12.5 % Normal 11.6-14.6 [facility] Comment on above: Performed By: #### L 3100.7950, L100.0100, L506.1000, L500.4050 #### [facility] [address] [place], [address] Hematocrit (Bld) [Volume fraction] 39.5 % Normal 37-47 [facility] Comment on above: Performed By: #### L 3100.7950, L100.0100, L506.1000, L500.4050 #### [facility] [address] [place], [address] Hemoglobin (Bld) [Mass/Vol] 12.7 g/dL Normal 12.0-15.0 [facility] Comment on above: Performed By: #### L 3100.7950, L100.0100, L506.1000, L500.4050 #### [facility] [address] [place], [address] IG% 0.200 Normal 0.0-0.9 [facility] Comment on above: Result Comment: IG% - Immature Granulocytes (promyelocytes, myelocytes and metamyelocytes) > 1% indicates that a LEFT SHIFT is Present. Performed By: #### L 3100.7950, L100.0100, L506.1000, L500.4050 #### [facility] [address] [place], [address] Lymphocytes/100 WBC (Bld) 37.7 % Normal 19-41 [facility] Comment on above: Performed By: #### L 3100.7950, L100.0100, L506.1000, L500.4050 #### [facility] [address] [place], [address] MCH (RBC) [Entitic mass] 28.5 pg Normal 27.0-32.0 [facility] Comment on above: Performed By: #### L 3100.7950, L100.0100, L506.1000, L500.4050 #### [facility] [address] [place], [address] MCHC (RBC) [Mass/Vol] 32.2 g/dL Normal 32-36 [facility] Comment on above: Performed By: #### L 3100.7950, L100.0100, L506.1000, L500.4050 #### [facility] [address] [place], [address] MCV (RBC) [Entitic vol] 88.6 fL Normal 81-99 [facility] Comment on above: Performed By: #### L 3100.7950, L100.0100, L506.1000, L500.4050 #### [facility] [address] [place], [address] Monocytes/100 WBC (Bld) 6.5 % Normal 0-10 [facility] Comment on above: Performed By: #### L 3100.7950, L100.0100, L506.1000, L500.4050 #### [facility] [address] [place], [address] Neutrophils/100 WBC (Bld) 52.6 % Normal 47-70 [facility] Comment on above: Performed By: #### L 3100.7950, L100.0100, L506.1000, L500.4050 #### [facility] [address] [place], [address] Nucleated RBC (Bld) [#/Vol] 0 10*3/uL Normal 0-5 [facility] Comment on above: Performed By: #### L 3100.7950, L100.0100, L506.1000, L500.4050 #### [facility] [address] [place], [address] Platelet mean volume (Bld) [Entitic vol] 11.0 fL Normal 6.2-12.0 [facility] Comment on above: Performed By: #### L 3100.7950, L100.0100, L506.1000, L500.4050 #### [facility] [address] [place], [address] Platelets (Bld) [#/Vol] 215 10*3/uL Normal 150-450 [facility] Comment on above: Performed By: #### L 3100.7950, L100.0100, L506.1000, L500.4050 #### [facility] [address] [place], [address] RBC (Bld) [#/Vol] 4.46 10*6/uL Normal 4.2-5.4 [facility] Comment on above: Performed By: #### L 3100.7950, L100.0100, L506.1000, L500.4050 #### [facility] [address] [place], [address] RDW SD 40.5 fl Normal 35.1-43.9 [facility] Comment on above: Performed By: #### L 3100.7950, L100.0100, L506.1000, L500.4050 #### [facility] [address] [place], [address] WBC (Bld) [#/Vol] 5.7 10*3/uL Normal 4.4-11.0 [facility] Comment on above: Performed By: #### L 3100.7950, L100.0100, L506.1000, L500.4050 #### [facility] [address] [place], [address] [facility] 11-18-2024 Albumin [Mass/Vol] 3.9 g/dL Normal 3.2-5.0 [facility] Comment on above: Performed By: #### L 3100.7950, L100.0100, L506.1000, L500.4050 #### [facility] [address] [place], [address] Albumin/Globulin [Mass ratio] 1.1 {ratio} Normal 0.9-2.4 [facility] Comment on above: Performed By: #### L 3100.7950, L100.0100, L506.1000, L500.4050 #### [facility] [address] [place], [address] ALK P 78 U/L Normal 45-117 [facility] Comment on above: Performed By: #### L 3100.7950, L100.0100, L506.1000, L500.4050 #### [facility] [address] [place], [address] ALT [Catalytic activity/Vol] 24 U/L Normal 13-56 [facility] Comment on above: Performed By: #### L 3100.7950, L100.0100, L506.1000, L500.4050 #### [facility] [address] [place], [address] AST [Catalytic activity/Vol] 10 U/L Low 15-37 [facility] Comment on above: Performed By: #### L 3100.7950, L100.0100, L506.1000, L500.4050 #### [facility] [address] [place], [address] Bilirubin [Mass/Vol] 0.40 mg/dL Normal 0.20-1.00 [facility] Comment on above: Result Comment: For patients on eltrombopag therapy, use of Dimension [place] TBIL is not recommended. Performed By: #### L 3100.7950, L100.0100, L506.1000, L500.4050 #### [facility] [address] [place], [address] BUN/CRE 17.6 RATIO Normal 10-20 [facility] Comment on above: Performed By: #### L 3100.7950, L100.0100, L506.1000, L500.4050 #### [facility] [address] [place], [address] CA,Total 9.5 mg/dL Normal 8.5-10.1 [facility] Comment on above: Performed By: #### L 3100.7950, L100.0100, L506.1000, L500.4050 #### [facility] [address] [place], [address] Chloride [Moles/Vol] 107 mmol/L Normal 98-107 [facility] Comment on above: Performed By: #### L 3100.7950, L100.0100, L506.1000, L500.4050 #### [facility] [address] [place], [address] CO2 [Moles/Vol] 29.0 mmol/L Normal 21.0-32.0 [facility] Comment on above: Performed By: #### L 3100.7950, L100.0100, L506.1000, L500.4050 #### [facility] [address] [place], [address] Creatinine [Mass/Vol] 0.68 mg/dL Normal 0.55-1.02 [facility] Comment on above: Result Comment: The validity of the calculated GFR GFRAA in patients over 70 years has not been determined. Clinical correlation is essential. Performed By: #### L 3100.7950, L100.0100, L506.1000, L500.4050 #### [facility] [address] [place], [address] EST GFR - AA 133 mL/min Normal >60 [facility] Comment on above: Result Comment: Afri can Samoan GFR Calc Performed By: #### L 3100.7950, L100.0100, L506.1000, L500.4050 #### [facility] [address] [place], [address] GAP 5 Normal 5-15 [facility] Comment on above: Performed By: #### L 3100.7950, L100.0100, L506.1000, L500.4050 #### [facility] [address] [place], [address] GFR/1.73 sq M.predicted among non-blacks MDRD (S/P/Bld) [Vol rate/Area] 110 mL/min/{1.73_m2} Normal >60 [facility] Comment on above: Result Comment: Non- GFR Calc Performed By: #### L 3100.7950, L100.0100, L506.1000, L500.4050 #### [place] [facility] [address] [place], [address] Globulin (S) [Mass/Vol] 3.6 g/dL Normal 2.2-4.2 [facility] Comment on above: Performed By: #### L 3100.7950, L100.0100, L506.1000, L500.4050 #### [facility] [address] [place], [address] Glucose [Mass/Vol] 82 mg/dL Normal 74-106 [facility] Comment on above: Performed By: #### L 3100.7950, L100.0100, L506.1000, L500.4050 #### [facility] [address] [place], [address] Potassium [Moles/Vol] 3.6 mmol/L Normal 3.5-5.1 [facility] Comment on above: Performed By: #### L 3100.7950, L100.0100, L506.1000, L500.4050 #### [facility] [address] [place], [address] Sodium [Moles/Vol] 141 mmol/L Normal 136-145 [facility] Comment on above: Performed By: #### L 3100.7950, L100.0100, L506.1000, L500.4050 #### [facility] [address] [place], [address] T PROT 7.5 g/dL Normal 6.4-8.2 [facility] Comment on above: Performed By: #### L 3100.7950, L100.0100, L506.1000, L500.4050 #### [facility] [address] [place], [address] Urea nitrogen [Mass/Vol] 12 mg/dL Normal 7-18 [facility] Comment on above: Performed By: #### L 3100.7950, L100.0100, L506.1000, L500.4050 #### [facility] [address] [place], [address] Vitamin D,25 Hydroxyon 11-18 Vitamin D 25-OH 20.8 ng/mL Normal [facility] Comment on above: Result Comment: Penelope min D 25(OH) Status Range Deficiency <20 ng/mL (50nmol/L) Insufficiency 20 - 30 ng/mL (50 - 75 nmol/L) Sufficiency 30 - 100 ng/mL (75 - 250 nmol/L) Toxicity >100 ng/mL (>250 nmol/L) Performed By: #### L 3100.7950, L100.0100, L506.1000, L500.4050 #### [facility] [address] [place], [address] Internal Medicine Office Vis iton 11-17-2024 Internal Medicine Office Visit [facility] [address] [place] [address] [place] [address] OFFICE VISIT Date of Service: 11/18/24 MR#: [id number] Acct: [id number] Name: NAYELI HERNANDEZ Rep #: [id number] : 1995 Provider: Dr. Laureen gomez MD Age/Sex: 29/F Location[place] [facility] [place] Status: Signed Intake Vital Signs 02/24/24 10:57 06/10/24 09:59 11/18/24 08:47 Height 5 ft 2 in 5 ft 2 in 5 ft 2 in Weight: 159 lb 6 oz BMI 29.1 BP 108/68 Blood Pressure Location Rt brachial Position Sitting Respiration 16 Pulse 98 Pulse Source Monitor Temp 96.7 F L Temp Source Temporal Pulse Oximetry (%) 98 Oxygen Delivery Method room air Intake Visit Reasons: EST NEW PT - WC PT Chief Complaint: establishing needs medication refills Dipper And Drier Required: No Accompanied by: Self Is patient in pain?: No Allergies No Known Allergies Allergy (Verified 11/18/24 08:45) Medications ???Medication ???Instructions ???Recorded ???Confirmed ???Type mfkmmprj-ggs-Jx-FA 1 mg 1 tab PO DAILY 04/23/22 11/18/24 History tablet sertraline 50 mg tablet (Zoloft) 50 mg PO DAILY anxiety #90 tabs 11/18/24 Rx ferrous sulfate 325 mg (65 mg 325 mg PO DAILY 02/24/24 11/18/24 History iron) tablet cholecalciferol (vitamin D3) 50 5,000 unit PO DAILY 06/10/2411/18 History mcg (2,000 unit) capsule valacyclovir 1 gram tablet 1,000 mg PO BID PRN cold sore 11/0711/18/24 History (Valtrex) Have you fallen in the past year?: No Nurse's Note: leaving for [facility] next month asking if there is anything she needs to do before leaving [employer] lux etc?? [facility] Medical History Oligohydramnios depression History of shoulder dystocia Gastric ulcer Seasonal allergies Family history of autistic disorder Vaginal delivery Anxiety Surgical History Tresckow teeth extracted History of surgery Family History (Updated 11/18/24 @ 09:[address] Laureen Rasmussen MD) Grandmother Breast cancer, Onset Age: 65 maternal Aunt Breast cancer, Onset Age: 60 Maternal Sister Thyroid disorder Mother Thyroid disorder Hypertension Sister Thyroid disorder Father Hypertension Social History (Updated 11/18/24 @ 09:[address] 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 current occupational exposures/hazards: No pets and animals: Yes pets and animals: dog(s) history of recent travel: No sexually active: Yes Smoking Status: Never smoker alcohol intake: current alcohol intake frequency: holidays/special occasions only details: Not while substance use type: does not use well-balanced diet: daily or most days caffeine: Yes Type: carbonated beverages Number of servings: 1 eating out: 1-3 times/week during the past year weight has: remained stable what type of physical activity do you participate in: walking frequency: 3-4 times per week duration: 30-45 minutes/day tigre/baptism: Adventist seatbelt use: always do you feel safe at home: Yes additional social history: - Ericka Sequeira, [employer] Laboratory Technician HPI HPI Chief Complaint: establishing needs medication refills Details: NAYELI HERNANDEZ, is a 29 F who presents to the office today to establish care. She was seeing Dr. Enrique and last saw them in 2021. She is due for some routine blood work. She is up to date on her screening. She isn't due for any immunizations. She doesn't smoke and doesn't need any refills. She reports she is eating healthy and staying active. The patient has a history of post depression as well as anxiety. She reports she was on zoloft in the past, which didn't help with her depression, however, she has been on it for about a year specifically for her anxiety and reports she does well with it. She is taking her medication as prescribed without problems. She states, however, she does notice if she misses a dose. She denies any current concerns about her mental health stating most of the time, she is doing well. She any thoughts of suicide. The patient saw ÓSCAR Choe in June with complaints of fatigue. She reports that her symptoms are about the same. She reports it is hard to get through the day without taking a nap and does occasionally nap because of it. She reports it isn't related to her mental health and rather states she just feels drained. She feels that she is sleeping well at night, but reports she doesn't feel rested in the mornings. She doesn't snore at night. She doesn't have any symptoms of RLS nor any episodes of falling asleep while doing activities. She does have three children includin (more content not included)... Normal [facility] T3 Reverseon 06-13-2024 T3 REVERSE 11.4 ng/dL Normal 9.2-24.1 [facility] Comment on above: Order Comment: Test( s) 848618-Kclhsxa T3, Serumwas developed and its performance characteristicsdetermined by [facility]. It has not been cleared or approvedby the Food and Drug Administration.N Result Comment: Perf ormed at: - [facility] [address] [id number] [employer] Supervisor: Sarah Alexandre MD, Phone: [phone] Performed By: #### L 828.6926, I283.5568, L6371.7135, H196.5832 ####[facility] [id number] [place], [address] Internal Medicine Office Vis iton 06-10-2024 Internal Medicine Office Visit [facility] [address] [place] [address] [place] [address] OFFICE VISIT Date of Service: 06/10/24 MR#: [id number] Acct: [id number] Name: NAYELI HERNANDEZ Rep #: [id number] : 1995 Provider: ÓSCAR Quijano Age/Sex: 28/F Location: [facility] [place] Status: Signed Intake Vital Signs 02/24/24 10:57 06/10/24 09:59 Height 5 ft 2 in 5 ft 2 in Weight: 154 lb BMI 28.1 BP 118/64 Blood Pressure Location Lt brachial Position Sitting Respiration 16 Pulse 80 Pulse Source Monitor Temp 97.3 F L Temp Source Temporal Pulse Oximetry (%) 98 Oxygen Delivery Method room air Intake Visit Reasons: ACUTE THYROID - WC PT Chief Complaint: thyroid f/u Dipper And Drier Required: No Accompanied by: Self Is patient in pain?: No Allergies No Known Allergies Allergy (Verified 06/10/24 09:55) Medications ???Medication ???Instructions ???Recorded ???Confirmed ???Type [id number]-[id number]-FA 1 mg 1 tab PO DAILY 04/23/22 06/10/24 History tablet sertraline 50 mg tablet (Zoloft) 50 mg PO DAILY anxiety #90 tabs 11/13/23 06/10/24 Rx ferrous sulfate 325 mg (65 mg 325 mg PO DAILY 02/24/24 06/10/24 History iron) tablet cholecalciferol (vitamin D3) 50 5,000 unit PO DAILY 06/10/24 06/10/24 History mcg (2,000 unit) capsule PFSH Medical History Oligohydramnios depression Shoulder dystocia during labor and delivery, delivered History of shoulder dystocia Gastric ulcer Seasonal allergies Family history of autistic disorder Vaginal delivery Anxiety Surgical History Tresckow teeth extracted History of surgery Family History (Updated 06/10/24 @ 09:59 by Dawna Lopez MA) Grandmother Breast cancer, Onset Age: 65 maternal Aunt Breast cancer, Onset Age: 60 Maternal Sister Thyroid disorder Mother Thyroid disorder Sister Thyroid disorder Social History (Updated 06/10/24 @ 09:59 by Dawna Lopez MA) adopted: No household members: spouse and children number of children: 3 current occupational status: employed 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 occupational exposures/hazards: No pets and animals: Yes pets and animals: dog(s) history of recent travel: No sexually active: Yes Smoking Status: Never smoker alcohol intake: current alcohol intake frequency: holidays/special occasions only details: Not while substance use type: does not use well-balanced diet: daily or most days caffeine: Yes Type: carbonated beverages Number of servings: 1 eating out: 1-3 times/week during the past year weight has: remained stable what type of physical activity do you participate in: walking frequency: 3-4 times per week duration: 30-45 minutes/day tigre/baptism: Adventist seatbelt use: always do you feel safe at home: Yes additional social history: - Ericka Sequeira, PT School Laboratory Technician HPI HPI Chief Complaint: thyroid f/u Details: NAYELI HERNANDEZ, is a 28 F who presents to the office today for some general symptoms the past 3 months. Patient states that she has noticed some fatigue, weight gain, heat intolerance, some hair loss, nail changes (brittle), decreased libido, and some weight gain. Patient has noticed symptoms following her both. Patient has also noted that she feels like there has been some sensation in the throat where she feels little fullness. She does not have any difficulties swallowing. She states that she did have some similar symptoms post- with her second child at the same time not quite the same. She denies any diarrhea or constipation. She denies chest pains / pressure, shortness of breath, palpitations, tachycardia, or other symptoms. She does sleep well at night (uninterrupted as baby does sleep through the night). She is currently breast feeding. ROS Const Constitutional: No body ache, chills, excessive sweating, fatigue, fever(s), frequent falls, headache(s), snoring, weakness or change in appetite Eyes Eyes: No blurry vision, change in vision, eye pain or Light sensitivity ENT ENT: No abnormal hearing, ear or mastoid pain, tinnitus, nasal congestion, headache(s), neck pain or sore throat Resp Respiratory: No cough, shortness of breath, snoring or wheezing Cardio Cardiology: No chest pain at rest, chest pain with exertion, excessive sweating, dyspnea on exertion, lightheadedness, orthopnea or palpitations Gastro GI: No abdominal pain, change in bowel habits, constipation, cramping, diarrhea, nausea/dyspepsia or vomiting Genitourinary-Female: No burning urination, painful urination, urinary incontinence or urinary frequency Musc Musculoskeletal: No abnormal gait, joint pain, back pain, limited range of motion, muscle weakness, neck pain or numbnes (more content not included)... Normal [facility] T4 Free Directon 06-10-2024 T4 FREE DIRECT 0.97 ng/dL Normal 0.76-1.46 [facility] Comment on above: Performed By: #### L 501.9520, L506.0400, L3300.7100, L501.9310 ####[facility] [id number], [place], [id number] T4 Total, Thyroxinon 024 T4 [Mass/Vol] 7.0 ug/dL Normal 4.8-13.9 [facility] Comment on above: Performed By: #### L 501.9520, L506.0400, L3300.7100, L501.9310 #### [facility] [address] [place], [place], [id number] Thyroid Stim Hormone (TSH)on 06-10-2024 TSH 0.836 uIU/mL Normal 0.358-3.740 [facility] Comment on above: Performed By: #### L 501.9520, L506.0400, L3300.7100, L501.9310 ####[facility] [id number] [place], [address] Progress Noteon 04-22-2024 Clean Out Driller Authentication Interface Message Text Assessment Patient: Nayeli Hernandez Chief Complaint: Latch Difficulties Difficulty of mother performing [Z39.1] Tongue tie present but does have good lift and appears to have slight decreased extension but not significantly. In office frenotomy at this age can be challenging as they are often much more awake and strong, so risk of injuring other important structures as well as risk for oral aversion is higher. Her feeding difficulties at the beginning may have been from tongue tie but at this point its likely habit of needing the nipple shield. There are no maternal anatomic factors that would make latch difficult. Plan -continue to nurse on demand, trialing without nipple shield -often best time to try is when she is sleepy or drowsy, and when she is not super hungry as they are often more patient -if unable to latch without the shield, would try to remove the shield partway through a feed Followup as needed Subjective Gissel and Nayeli present today for latch difficulties and concern for tongue tie. Since she has had difficulty latching. Nipple shield was introduced early and she only nurses with the nipple shield now. Nayeli has tried to nurse without the shield and she won't latch. SHe has even tried taking it off partway through the feed and she still won't relatch. She was told she would have difficulty nursing because of her anatomy They mostly nurse on demand, every 3 hours or so. She usually feeds one breast but sometimes both breasts. 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 Usually one pump overnight yields 8oz or so. She does not have any pain with nursing, even at the beginning after . No pain with pumping either. Gissel was born at [place] at 37+4 weeks, IOL for oligo. Otherwise no issues with or delivery. Gissel is Nayeli's third daughter. She breastfed her first until 11 mo at which time she got with her second. She required nipple shield for the duration of . She also breastfed her second for 14 months with no complications. Objective Transfer weights (done with same diaper each measurement): N/a did not feed Exam: Nipple exam pre-feed: - Right: Ferrum and everted - Left: Ferrum and everted Nipple exam post-feed: N/a did not feed Breast exam: - Right: normal shape, tissue extends to sternum, no erythema or edema, no mass - Left: normal shape, tissue extends to sternum, no erythema or edema, no mass Normal [facility] Absolute lymphocyte countOrd ered By: Radha Villalobos on 01-13-2024 Lymphocytes Auto (Unsp spec) [#/Vol] 1.61 10*3/uL 0.83-4.51 [facility] Automated lymphocyte count a s percentage of total leukocytesOrdered By: Radha Villalobos on 01-13-2024 Lymphocytes/100 WBC Auto (Unsp spec) 20.4 % 19-41 [facility] Basophil percentageOrdered B y: Radha Villalobos on 01-13-2024 Basophils/100 WBC (Bld) 0.3 % 0-1 [facility] Eosinophils/100 WBC (Bld) 1.0 % 0-5 [facility] Hemoglobin (Bld) [Mass/Vol] 11.4 g/dL 12.0-15.0 [facility] Monocytes/100 WBC (Bld) 5.2 % 0-10 [facility] Neutrophils (Bld) [#/Vol] 5.8 10*3/uL 2.0-7.7 [facility] Neutrophils/100 WBC (Bld) 72.7 % 47-70 [facility] WBC (Bld) [#/Vol] 7.9 10*3/uL 4.4-11.0 [facility] Determination of erythrocyte mean corpuscular volume (MCV)Ordered By: Radha Villalobos on 01-13-2024 MCV (RBC) [Entitic vol] 87.3 fL 81-99 [facility] Erythrocyte distribution wid th ratioOrdered By: Radha Villalobos on 01-13-2024 Erythrocyte distribution width (RBC) [Ratio] 14.3 % 11.6-14.6 [facility] Erythrocyte distribution wid th standard deviationOrdered By: Radha Villalobos on 01-13-2024 Erythrocyte distribution width (RBC) [Entitic vol] 45.1 fL 35.1-43.9 [facility] Hematocrit Auto (Bld) [Volum e fraction]Ordered By: Radha Villalobos on 01-13-2024 Hematocrit (Bld) [Volume fraction] 34.3 % 37-47 [facility] Immature granulocytes/100 WB C Auto (Bld)Ordered By: Radha Villalobos on 01-13-2024 Immature granulocytes/100 WBC (Bld) 0.400 % 0.0-0.9 [facility] Comment on above: IG% - Immature Granu locytes (promyelocytes, myelocytes and metamyelocytes) > 1% indicates that a LEFT SHIFT is Present. Laboratory - Hematology and Cell countsOrdered By: Radha Villalobos on 01-13-2024 MCH (RBC) [Entitic mass] 29.0 pg 27.0-32.0 [facility] MCHC (RBC) [Mass/Vol] 33.2 g/dL 32-36 [facility] Nucleated RBC/100 WBC (Bld) [Ratio] 0 % 0-5 [facility] Platelet mean volume (Bld) [Entitic vol] 11.6 fL 6.2-12.0 [facility] Platelets (Bld) [#/Vol] 166 10*3/uL 150-450 [facility] RBC Auto (Bld) [#/Vol]Ordere d By: Radha Villalobos on 01-13-2024 RBC (Bld) [#/Vol] 3.93 10*6/uL 4.2-5.4 [facility] Serum Treponema species anti body detectionOrdered By: Radha Villalobos on 01-13-2024 Treponema sp Ab Ql (S) Non-Reactive [facility] Laboratory - Chemistry and C hemistry - challengeon 01-08-2024 Glucose Ql (U) Negative [facility] Laboratory - Urinalysison Protein Ql (U) Negative [facility] No Panel InformationOrdered By: Radha Villalobos on 01-08-2024 Group B Streptococcus Culture Group B Beta Streptococcus is not isolated. [facility] Bilirubin Test strip Ql (U)O rdered By: Fanta Zarate on 01-02-2024 Bilirubin Ql (U) Negative Negative [facility] Culture, urineOrdered By: Justin Zarate on 01-02-2024 Bacteria identified Cx Nom (U) Culture exhibits no growth. [facility] Ketones Test strip Ql (U)Ord ered By: Fanta Zarate on 01-02-2024 Ketones Ql (U) 150 mg/dl Negative [facility] Comment on above: CRITICAL VALUE *HCRI TICAL VALUE VERIFIED. CALLED TO ANN KO ()01/02/24 1147 Sagar Guzman.RESULTS READ BACK BY SAME. Nitrite Test strip Ql (U)Ord ered By: Fanta Zarate on 01-02-2024 Nitrite Ql (U) Negative Negative [facility] Protein Test strip Ql (U)Ord ered By: Fanta Zarate on 01-02-2024 Protein Ql (U) Negative Negative [facility] Urine blood detectionOrdered By: Fanta Zarate on 01-02-2024 RBC Ql (U) Negative Negative [facility] Urine clarityOrdered By: Douglas Zarate on 01-02-2024 Clarity (U) Sl. Cloudy Clear [facility] Urine color determinationOrd ered By: Fanta Zarate on 01-02-2024 Color (U) Yellow Yellow [facility] Urine glucose detectionOrder ed By: Fanta Zarate on 01-02-2024 Glucose Ql (U) Normal mg/dl Normal [facility] Urine leukocyte esterase det ection by dipstickOrdered By: Fanta Zarate on 01-02-2024 Leukocyte esterase Test strip Ql (U) 25 /ul Negative [facility] Urine pHOrdered By: Fanta blanchard on 01-02-2024 pH (U) 6.5 [pH] 5.0 - 8.0 [facility] Urine specific gravity measu rementOrdered By: Fanta Zarate on 01-02-2024 Specific gravity (U) [Rel density] 1.010 1.002-1.030 [facility] Urine urobilinogen measureme ntOrdered By: Fanta Zarate on 01-02-2024 Urobilinogen Ql (U) Normal mg/dl Normal [facility] Culture, urineOrdered By: Neo Villalobos on 12-11-2023 Bacteria identified Cx Nom (U) Culture exhibits no growth. [facility] Gram stain for investigation of transfusion reactionOrdered By: Radha Villalobos on 12-11-2023 Microscopic observation Gram stain Nom (Unsp spec) [facility] Laboratory - Chemistry and C hemistry - challengeon 12-11-2023 Bilirubin Ql (U) Negative [facility] Glucose Ql (U) Negative [facility] Ketones Ql (U) Negative [facility] pH (U) 6.0 [pH] [facility] Specific gravity (U) [Rel density] 1.015 [facility] Urobilinogen (U) [Mass/Vol] 0.8292707 mg/dL [facility] Laboratory - Hematology and Cell countson 12-11-2023 Hemoglobin Ql (U) Negative [facility] Laboratory - Specimen inform ationon 12-11-2023 Clarity (U) Clear [facility] Color (U) Yellow [facility] Laboratory - Urinalysison Nitrite Ql (U) Negative [facility] Protein Ql (U) Negative [facility] No Panel InformationOrdered By: Radha Villalobos on 12-11-2023 Genital Culture Neisseria or beta-hemolytic Streptococcus isolated. [facility] No Panel Informationon 12-10 Urine Leukocytes Positive [facility] Laboratory - Chemistry and C hemistry - challengeon 11-28-2023 Glucose Ql (U) Negative [facility] Laboratory - Urinalysison Protein Ql (U) Negative [facility] Laboratory - Chemistry and C hemistry - challengeon 11-13-2023 Glucose Ql (U) Negative [facility] - Urinalysison Protein Ql (U) Negative [facility] Gestational diabetes screen 1-hour screen with 50g oral glucose loadOrdered By: Fanta Zarate on 10-17-2023 Glucose 1 Hr post 50 g glucose PO [Mass/Vol] 102 mg/dL 70-140 [facility] Laboratory - Chemistry and C hemistry - challengeon 10-17-2023 Glucose Ql (U) Negative [facility] Laboratory - Urinalysison Protein Ql (U) Negative [facility] Laboratory - Chemistry and C hemistry - challengeon 07-25-2023 Glucose Ql (U) Negative [facility] Laboratory - Urinalysison Protein Ql (U) Negative [facility] COVID-19 virus antigen assay Ordered By: Scott Artis on 07-12-2023 SARS-CoV-2 (COVID-19) Ag IA.rapid Ql (Resp) [facility] COVID-19 virus antigen assay Ordered By: Scott Artis on 07-11-2023 SARS-CoV-2 (COVID-19) Ag IA.rapid Ql (Resp) [facility] Absolute lymphocyte countOrd ered By: Fanta Zarate on 06-24-2023 Lymphocytes Auto (Unsp spec) [#/Vol] 1.76 10*3/uL 0.83-4.51 [facility] Basophil percentageOrdered B y: Fanta Zarate on 06-24-2023 Basophils/100 WBC (Bld) 0.7 % 0-1 [facility] Eosinophils/100 WBC (Bld) 2.6 % 0-5 [facility] Neutrophils (Bld) [#/Vol] 3.7 10*3/uL 2.0-7.7 [facility] Neutrophils/100 WBC (Bld) 60.6 % 47-70 [facility] WBC (Bld) [#/Vol] 6.1 10*3/uL 4.4-11.0 [facility] Blood erythrocytes count (nu mber/volume)Ordered By: Fanta Zarate on 06-24-2023 RBC (Bld) [#/Vol] 4.32 10*6/uL 4.2-5.4 [facility] Blood hemoglobin measurement (mass/volume)Ordered By: Fanta Zarate on 06-24-2023 Hemoglobin (Bld) [Mass/Vol] 12.3 g/dL 12.0-15.0 [facility] Blood lymphocytes/100 leukoc ytesOrdered By: Fanta Zarate on 06-24-2023 Lymphocytes/100 WBC (Bld) 29.0 % 19-41 [facility] Blood monocytes/100 leukocyt esOrdered By: Fanta Zarate on 06-24-2023 Monocytes/100 WBC (Bld) 6.6 % 0-10 [facility] Blood platelet mean volumeOr dered By: Fanta Zarate on 06-24-2023 Platelet mean volume (Bld) [Entitic vol] 10.3 fL 6.2-12.0 [facility] Cervical or vagninal specime n microscopic examination by cytology stain (reported asOrdered By: Fanta Zarate on 06-24-2023 Cytology report Cyto stain Doc (Cvx/Vag) Comment . [facility] Comment on above: The Pap smear is a s creening test designed to aid in thedetection of premalignant and malignant conditions of theuterine cervix. It is not a diagnostic procedure andshould not be used as the sole means of detecting cervicalcancer. Both false-positive and false-negative reports dooccur. Chlamydia trachomatis rRNA d etection by probe and target amplification methodOrdered By: Fanta Zarate on 06-24-2023 C. trachomatis rRNA JIMMY+probe Ql (Unsp spec) Negative Negative [facility] Culture, urineOrdered By: Justin Zarate on 06-24-2023 Bacteria identified Cx Nom (U) Culture exhibits no growth. [facility] Bacteria identified Cx Nom (U) Culture exhibits no growth. [facility] Determination of erythrocyte mean corpuscular volume (MCV)Ordered By: Fanta Zarate on 06-24-2023 MCV (RBC) [Entitic vol] 87.3 fL 81-99 [facility] HIV 1 and HIV-2 antibody ass ay with HIV-1 p24 antigen detectionOrdered By: Fanta Zarate on 06-24-2023 HIV 1+2 Ab+HIV1 p24 Ag IA Ql Non-Reactive Nonreactive [facility] Hematocrit Auto (Bld) [Volum e fraction]Ordered By: Fanta Zarate on 06-24-2023 Hematocrit (Bld) [Volume fraction] 37.7 % 37-47 [facility] Laboratory - CytologyOrdered By: Fanta Zarate on 06-24-2023 Securities Clerk Cyto stain Nom (Cvx/Vag) [ID] Comment . [facility] Comment on above: Penny Heredia [employer] hnologist (ASCP) Laboratory - Hematology and Cell countsOrdered By: Fanta Zarate on 06-24-2023 Erythrocyte distribution width (RBC) [Entitic vol] 39.6 fL 35.1-43.9 [facility] Erythrocyte distribution width (RBC) [Ratio] 12.5 % 11.6-14.6 [facility] Immature granulocytes/100 WBC (Bld) 0.500 % 0.0-0.9 [facility] Comment on above: IG% - Immature Granu locytes (promyelocytes, myelocytes and metamyelocytes) > 1% indicates that a LEFT SHIFT is Present. MCH (RBC) [Entitic mass] 28.5 pg 27.0-32.0 [facility] Nucleated RBC/100 WBC (Bld) [Ratio] 0 % 0-5 [facility] Laboratory - Microbiology an d Antimicrobial susceptibilityOrdered By: Fanta Zarate on 06-24-2023 N. gonorrhoeae DNA JIMMY+probe Ql (Unsp spec) Negative Negative [facility] Comment on above: Performed at: =G - L [address] [id number] Director: Leta Holt MD, Phone: [phone] Laboratory - Miscellaneous t estsOrdered By: Fanta Zarate on 06-24-2023 Service comment (Unsp spec) [Interp] Comment . [facility] Comment on above: This liquid based Th inPrep(R) pap test was screened withthe use of an image guided system. Service comment (Unsp spec) [Interp] . . [facility] MCHC Auto (RBC) [Mass/Vol]Or dered By: Fanta Zarate on 06-24-2023 MCHC (RBC) [Mass/Vol] 32.6 g/dL 32-36 [facility] No Panel InformationOrdered By: Fanta Zarate on 06-24-2023 Human Papillomavirus Screen Comment . [facility] Comment on above: The HPV DNA reflex c chrissy were not met with this specimenresult therefore, no HPV testing was performed.Performed at: [facility] [address] [place], [place] [id number] Director: Juan Doyle MD, Phone: [phone] at: [facility] - Lab[address] [id number] Director: Leta Holt MD, Phone: [phone] Pathology report final diagnosis Narrative Comment . [facility] Comment on above: NEGATIVE FOR INTRAEP ITHELIAL LESION OR MALIGNANCY. Hepatitis B Surface Antigen Non-Reactive Nonreactive [facility] Hepatitis C Antibody Non-Reactive Nonreactive [facility] Comment on above: Non Reactive: < 0.8 Equivocal: >/= 0.8 to < 1.0 Reactive: >/= 1.0The [facility] recommends that a reactive/equivocal HCV antibody result be followed up by the HCV Nucleic Acid Amplificationtest (688610) Rubella IgG Antibody Reactive Nonreactive [facility] Comment on above: Antibody Results Int erpretation of Immune Status Non Reactive Presumed Non-Immune Equivocal Equivocal Reactive Presumed Immune Platelets bldOrdered By: Douglas Zarate on 06-24-2023 Platelets (Bld) [#/Vol] 219 10*3/uL 150-450 [facility] Serum Treponema species anti body detectionOrdered By: Fanta Zarate on 06-24-2023 Treponema sp Ab Ql (S) Non-Reactive [facility] Laboratory - Chemistry and C hemistry - challengeon 08-01-2022 Free T4 [Mass/Vol] 0.84 ng/dL 0.76-1.46 [facility] Work Phone: [phone] No Panel Informationon 08-01 Thyroid Stimulating Hormone (TSH) 1.19 uIU/mL 0.358-3.74 [facility] Work Phone: [phone] Absolute lymphocyte counton 06-21-2022 Lymphocytes Auto (Unsp spec) [#/Vol] 1.28 10*3/uL 0.83-4.51 [facility] Work Phone: Basophil percentageon 2021 Basophils/100 WBC (Bld) 0.3 % 0-1 [facility] Work Phone: Eosinophils/100 WBC (Bld) 1.4 % 0-5 [facility] Work Phone: Neutrophils (Bld) [#/Vol] 4.3 10*3/uL 2.0-7.7 [facility] Work Phone: Neutrophils/100 WBC (Bld) 68.8 % 47-70 [facility] Work Phone: WBC (Bld) [#/Vol] 6.2 10*3/uL 4.4-11.0 [facility] Work Phone: Blood erythrocytes count (nu mber/volume)on 06-21-2022 RBC (Bld) [#/Vol] 3.88 10*6/uL 4.2-5.4 [facility]: Blood hemoglobin measurement (mass/volume)on 06-21-2022 Hemoglobin (Bld) [Mass/Vol] 10.8 g/dL 12.0-15.0 [facility] Work Phone: Blood lymphocytes/100 leukoc yteson 06-21-2022 Lymphocytes/100 WBC (Bld) 20.5 % 19-41 [facility] Work Phone: Blood monocytes/100 leukocyt eson 06-21-2022 Monocytes/100 WBC (Bld) 8.7 % 0-10 [facility] Work Phone: Blood platelet mean volumeon 06-21-2022 Platelet mean volume (Bld) [Entitic vol] 12.7 fL 6.2-12.0 [facility] Work Phone: Determination of erythrocyte mean corpuscular volume (MCV)on 06-21-2022 MCV (RBC) [Entitic vol] 85.3 fL 81-99 [facility] Work Phone: Hematocrit Auto (Bld) [Volum e fraction]on 06-21-2022 Hematocrit (Bld) [Volume fraction] 33.1 % 37-47 [facility] Work Phone: Laboratory - Hematology and Cell countson 06-21-2022 Erythrocyte distribution width (RBC) [Entitic vol] 40.7 fL 35.1-43.9 [facility] Work Phone: Erythrocyte distribution width (RBC) [Ratio] 13.5 % 11.6-14.6 [facility] Work Phone: Immature granulocytes/100 WBC (Bld) 0.300 % 0.0-0.9 [facility] Work Phone: [phone] Comment on above: IG% - Immature Granu locytes (promyelocytes, myelocytes and metamyelocytes) > 1% indicates that a LEFT SHIFT is Present. MCH (RBC) [Entitic mass] 27.8 pg 27.0-32.0 [facility] Work Phone: Nucleated RBC/100 WBC (Bld) [Ratio] 0 % 0-5 [facility] Work Phone: MCHC Auto (RBC) [Mass/Vol]on 06-21-2022 MCHC (RBC) [Mass/Vol] 32.6 g/dL 32-36 [facility] Work Phone: Platelets bldon 06-21-2022 Platelets (Bld) [#/Vol] 121 10*3/uL 150-450 [facility] Work Phone: Basophil percentageon 2021 WBC (Bld) [#/Vol] 8.8 10*3/uL 4.4-11.0 [facility] Work Phone: [phone] Blood erythrocytes count (nu mber/volume)on 06-07-2022 RBC (Bld) [#/Vol] 3.98 10*6/uL 4.2-5.4 [facility] Work Phone: [phone] Blood hemoglobin measurement (mass/volume)on 06-07-2022 Hemoglobin (Bld) [Mass/Vol] 11.3 g/dL 12.0-15.0 [facility] Work Phone: Blood platelet mean volumeon 06-07-2022 Platelet mean volume (Bld) [Entitic vol] 12.0 fL 6.2-12.0 [facility] Work Phone: [phone] Determination of erythrocyte mean corpuscular volume (MCV)on 06-07-2022 MCV (RBC) [Entitic vol] 86.4 fL 81-99 [facility] Work Phone: Hematocrit Auto (Bld) [Volum e fraction]on 06-07-2022 Hematocrit (Bld) [Volume fraction] 34.4 % 37-47 [facility] Work Phone: Laboratory - Hematology and Cell countson 06-07-2022 Erythrocyte distribution width (RBC) [Entitic vol] 41.1 fL 35.1-43.9 [facility] Work Phone: Erythrocyte distribution width (RBC) [Ratio] 13.3 % 11.6-14.6 [facility] Work Phone: MCH (RBC) [Entitic mass] 28.4 pg 27.0-32.0 [facility] Work Phone: MCHC Auto (RBC) [Mass/Vol]on 06-07-2022 MCHC (RBC) [Mass/Vol] 32.8 g/dL 32-36 [facility] Work Phone: No Panel Informationon 06-07 Vaginal Amniotic Fluid Detection Negative Negative [facility] Work Phone: Comment on above: Amniotic fluid not p resent indicates No Rupture of FetalMembranes at time of specimen collection. Platelets bldon 06-07-2022 Platelets (Bld) [#/Vol] 136 10*3/uL 150-450 [facility] Work Phone: Bilirubin Test strip Ql (U)o n 04-23-2022 Bilirubin Ql (U) Negative Negative [facility] Work Phone: Ketones Test strip Ql (U)on 04-23-2022 Ketones Ql (U) Negative Negative [facility] Work Phone: Nitrite Test strip Ql (U)on 04-23-2022 Nitrite Ql (U) Negative Negative [facility] Work Phone: Protein Test strip Ql (U)on 04-23-2022 Protein Ql (U) Negative Negative [facility] Work Phone: Urine blood detectionon 04-06 RBC Ql (U) 10 /ul Negative [facility] Work Phone: Urine clarityon 04-23-2022 Clarity (U) Sl. Cloudy Clear [facility] Work Phone: Urine color determinationon 04-23-2022 Color (U) Yellow Yellow [facility] Work Phone: Urine glucose detectionon Glucose Ql (U) Normal mg/dl Normal [facility] Work Phone: Urine leukocyte esterase det ection by dipstickon 04-23-2022 Leukocyte esterase Test strip Ql (U) 500 /ul Negative [facility] Work Phone: [phone] Urine pHon 04-23-2022 pH (U) 7.0 [pH] 5.0 - 8.0 [facility] Work Phone: Urine specific gravity measu rementon 04-23-2022 Specific gravity (U) [Rel density] 1.005 1.002-1.030 [facility] Work Phone: Urobilinogen Auto test strip Ql (U)on 04-23-2022 Urobilinogen Ql (U) Normal mg/dl Normal [facility] Work Phone: Basophil percentageon 2021 WBC (Bld) [#/Vol] 7.9 10*3/uL 4.4-11.0 [facility] Work Phone: Blood erythrocytes count (nu mber/volume)on 03-27-2022 RBC (Bld) [#/Vol] 4.05 10*6/uL 4.2-5.4 [facility] Work Phone: Blood hemoglobin measurement (mass/volume)on 03-27-2022 Hemoglobin (Bld) [Mass/Vol] 11.9 g/dL 12.0-15.0 [facility] Work Phone: Blood platelet mean volumeon 03-27-2022 Platelet mean volume (Bld) [Entitic vol] 11.0 fL 6.2-12.0 [facility] Work Phone: Determination of erythrocyte mean corpuscular volume (MCV)on 03-27-2022 MCV (RBC) [Entitic vol] 89.9 fL 81-99 [facility] Work Phone: Gestational diabetes screen 1-hour screen with 50g oral glucose loadon 03-27-2022 Glucose 1 Hr post 50 g glucose PO [Mass/Vol] 93 mg/dL 70-140 [facility] Work Phone: Hematocrit Auto (Bld) [Volum e fraction]on 03-27-2022 Hematocrit (Bld) [Volume fraction] 36.4 % 37-47 [facility] Work Phone: Laboratory - Hematology and Cell countson 03-27-2022 Erythrocyte distribution width (RBC) [Entitic vol] 43.7 fL 35.1-43.9 [facility] Work Phone: Erythrocyte distribution width (RBC) [Ratio] 13.3 % 11.6-14.6 [facility] Work Phone: MCH (RBC) [Entitic mass] 29.4 pg 27.0-32.0 [facility] Work Phone: [phone] MCHC Auto (RBC) [Mass/Vol]on 03-27-2022 MCHC (RBC) [Mass/Vol] 32.7 g/dL 32-36 [facility] Work Phone: Platelets bldon 03-27-2022 Platelets (Bld) [#/Vol] 178 10*3/uL 150-450 [facility] Work Phone: NOVEL CORONAVIRUSon 05-29-20 21 NARRATIVE This test was perfor med using isothermal JIMMY and has been approved as Emergency Use Authorization (EUA) for the qualitative detection [id number] nucleic acid. Normal [facility] Comment on above: Performed By: #### C OVID #### Testing performed at [address] [address] SARS-CoV-2 (COVID-19) RNA JIMMY+probe Ql (Unsp spec) Not detected Normal NOT DETECTED [facility] Comment on above: Result Comment: Nega tive results do not preclude SARS-CoV-2 infection and should not be used as the sole basis for treatment or other patient management decisions. Optimum specimen types and timing for peak viral levels during infections caused by SARS-CoV-2 has not been determined. The possibility of a false negative result should especially be considered if the patient's recent exposures or clinical presentation suggest that SARS-CoV-2 infection is probable, and diagnostic tests for other causes of illness (e.g., other respiratory illness) are negative. Collection of a new specimen and re-testing may be necessary if the patient is critically ill or clinically deteriorating. Performed By: #### C OVID #### Testing performed at [address] [address] NOVEL CORONAVIRUSon 20 21 NARRATIVE This test was perfor med using isothermal JIMMY and has been approved as Emergency Use Authorization (EUA) for the qualitative detection [id number] nucleic acid. Normal [facility] Comment on above: Performed By: #### C OVID #### Testing performed at [place] [id number] SARS-CoV-2 (COVID-19) RNA JIMMY+probe Ql (Unsp spec) Not detected Normal NOT DETECTED [facility] Comment on above: Result Comment: Nega tive results do not preclude SARS-CoV-2 infection and should not be used as the sole basis for treatment or other patient management decisions. Optimum specimen types and timing for peak viral levels during infections caused by SARS-CoV-2 has not been determined. The possibility of a false negative result should especially be considered if the patient's recent exposures or clinical presentation suggest that SARS-CoV-2 infection is probable, and diagnostic tests for other causes of illness (e.g., other respiratory illness) are negative. Collection of a new specimen and re-testing may be necessary if the patient is critically ill or clinically deteriorating. Performed By: #### C OVID #### Testing performed at [address] [address] URINE CULTUREon 02-27-2021 Bacteria identified Cx Nom (U) SPECIMEN DESCRIPTION URINE CLEAN CATCH UA DIPSTICK LEUKOCYTE POSITIVE * Result Note: NITRITE NEGATIVE * CULTURE NO PATHOGENS ISOLATED * Result Note: Testing performed at [place] [address] * REPORT STATUS 03/01/2021 * Result Note: FINAL * Normal [facility] Comment on above: Performed By: #### A URNC #### Testing performed at [address] [place] [address] Testing performed at [address] [address] URINE MACROSCOPICon 02-28-20 21 Bilirubin Ql (U) Negative Normal NEGATIVE [facility] Comment on above: Performed By: #### U MAC, UMIC #### Testing performed at [address] [address] Clarity (U) CLEAR Normal CLEAR [facility] Comment on above: Performed By: #### U MAC, UMIC #### Testing performed at [address] [address] Color (U) YELLOW Normal YELLOW [facility] Comment on above: Performed By: #### U MAC, UMIC #### Testing performed at [address] [address] Glucose Ql (U) Negative Normal NEGATIVE [facility] Comment on above: Performed By: #### U MAC, UMIC #### Testing performed at [address] [address] pH (U) 5.5 [pH] Normal 5.0-7.0 [facility] Comment on above: Performed By: #### U MAC, UMIC #### Testing performed at [address] [place] [address] URINE HEMOGLOBIN SMALL Abnormal NEGATIVE [facility] Comment on above: Performed By: #### U MAC, UMIC #### Testing performed at [address] [address] URINE KETONE TRACE Abnormal NEGATIVE [facility] Comment on above: Performed By: #### U MAC, UMIC #### Testing performed at [address] [address] URINE LEUKOTEST SMALL Abnormal NEGATIVE [facility] Comment on above: Performed By: #### U MAC, UMIC #### Testing performed at [address] [place] [address] URINE NITRATES Negative Normal NEGATIVE [facility] Comment on above: Performed By: #### U MAC, UMIC #### Testing performed at [address] [address] URINE SPEC GRAVITY >1.030 High 1.010-1.025 [facility] [facility]) Comment on above: Performed By: #### U MAC, UMIC #### Testing performed at [address] [address] URINE TOTAL PROTEIN Negative Normal NEGATIVE [facility] ([facility]) Comment on above: Performed By: #### U MAC, UMIC #### [place] [address] Urobilinogen Qn (U) 0.2 {Ita'U}/dL Normal 0.2-1.0 [facility] ([facility] Comment on above: Performed By: #### U MAC, UMIC #### [place] [address] URINE MICROSCOPICon 02-28-20 21 Bacteria LM.HPF (Urine sed) [#/Area] Negative Normal NEGATIVE [facility] Comment on above: Performed By: #### U MAC, UMIC #### Testing performed at [address] [address] CASTS NONE Normal NONE [facility] Comment on above: Performed By: #### U MAC, UMIC #### [place] [address] CRYSTAL NONE Normal [facility] Comment on above: Performed By: #### U MAC, UMIC #### Testing performed at [address] [address] Epithelial cells LM Ql (Urine sed) 1 TO 5 Normal [facility] Comment on above: Performed By: #### U MAC, UMIC #### Testing performed at [address] [address] Mucus Ql (Urine sed) Negative Normal NEGATIVE [facility] Comment on above: Performed By: #### U MAC, UMIC #### Testing performed at [address] [address] URINE COMMENT REFLEX CULTURE PER ESTABLISHED CRITERIA. [facility] Comment on above: Performed By: #### U MAC, UMIC #### [place] [address] URINE RBC'S 1 TO 5 Normal NEGATIVE [facility] Comment on above: Performed By: #### U MAC, UMIC #### Testing performed at [facility]) [address] [place] [address] URINE WBC'S 1 TO 5 Normal NEGATIVE [facility] Comment on above: Performed By: #### U MAC, UMIC #### Testing performed at [place] [id number] No Panel InformationOrdered By: Sagar Rodriguez on 02-26-2021 [facility] URINALYSIS, MACROOrdered By: Sagar Rodriguez on 02-26-2021 Bilirubin Ql (U) Negative NEGATIVE [facility] Clarity (U) CLEAR CLEAR [facility] Color (U) YELLOW YELLOW [facility] Glucose Test strip (U) [Mass/Vol] Negative NEGATIVE mg/dl [facility] Hemoglobin Ql (U) SMALL Abnormal NEGATIVE [facility] Interpretation and review of laboratory results Abnormal [facility] Ketones (U) [Mass/Vol] TRACE Abnormal NEGAT DUNIA mg/dl [facility] Leukocyte esterase Test strip Ql (U) SMALL Abnormal NEGATIVE [facility] Nitrite Ql (U) Negative NEGATIVE [facility] pH (U) 5.5 [pH] [facility] Protein Ql (U) Negative NEGATIVE mg/dl [facility] Specific gravity (U) [Rel density] >1.030 High [facility] Urobilinogen (U) [Mass/Vol] 0.2 mg/dL [facility] URINE MICROSCOPICOrdered By: Sagar Rodriguez on 02-26-2021 Bacteria LM.HPF (Urine sed) [#/Area] Negative NEGATIVE [facility] Casts LM.LPF (Urine sed) [#/Area] NONE NONE /LPF [facility] Crystals LM Nom (Urine sed) NONE NONE [facility] Epithelial cells LM Ql (Urine sed) 1 TO 5 /HPF [facility] Mucus Ql (Urine sed) Negative NEGATIVE [facility] RBC LM.HPF (Urine sed) [#/Area] 1 TO 5 NEGATIVE /HPF [facility] Urine sediment comments LM Linus (Urine sed) REFLEX CULTURE PER ESTABLISHED CRITERIA. [facility] WBC LM.HPF (Urine sed) [#/Area] 1 TO 5 NEGATIVE /HPF [facility] CBCon 02-13-2021 ABSOLUTE BAS 0.1 10*3/uL Normal 0.0-0.2 [facility] Comment on above: Result Comment: Test ing performed at [place] [address] Performed By: #### R TOXR, UMAC, UMIC #### [place] [address] ABSOLUTE EOS 0.00 10*3/uL Normal 0.0-0.7 [facility] Comment on above: Performed By: #### R TOXR, UMAC, UMIC #### [place] [address] ABSOLUTE NEUTROPHIL COUNT 13.5 10*3/uL High 1.4-6.5 [facility] Comment on above: Performed By: #### R TOXR, UMAC, UMIC #### [place] [address] Basophils/100 WBC (Bld) 0.4 % Normal 0.0-2.0 [facility] Comment on above: Performed By: #### R TOXR, UMAC, UMIC #### [place] [address] DTYPE AUTO DIFF Normal [facility] Comment on above: Performed By: #### R TOXR, UMAC, UMIC #### Testing performed at [place] [id number] Eosinophils/100 WBC (Bld) 0.1 % Normal 0.0-11.0 [facility] Comment on above: Performed By: #### R TOXR, UMAC, UMIC #### [place] [address] Lymphocytes (Bld) [#/Vol] 1.40 10*3/uL Normal 1.2-3.4 [facility] Comment on above: Performed By: #### R TOXR, UMAC, UMIC #### [place] [address] Lymphocytes/100 WBC (Bld) 8.9 % Low 20.0-55.0 [facility] Comment on above: Performed By: #### R TOXR, UMAC, UMIC #### Testing performed at [address] [address] Monocytes (Bld) [#/Vol] 0.9 10*3/uL High 0.0-0.7 [facility] Comment on above: Performed By: #### R TOXR, UMAC, UMIC #### Testing performed at [address] [address] Monocytes/100 WBC (Bld) 5.7 % Normal 0.0-10.0 [facility] Comment on above: Performed By: #### R TOXR, UMAC, UMIC #### Testing performed at [place] [id number] Neutrophils/100 WBC (Bld) 84.9 % High 37.0-75.0 [facility] Comment on above: Performed By: #### R TOXR, UMAC, UMIC #### Testing performed at [place] [id number] Erythrocyte distribution width (RBC) [Ratio] 14.1 % Normal 11.5-14.5 [facility] Comment on above: Performed By: #### R TOXR, UMAC, UMIC #### Testing performed at [address] [address] Hematocrit (Bld) [Volume fraction] 32.2 % Low 36.0-48.0 [facility] Comment on above: Performed By: #### R TOXR, UMAC, UMIC #### Testing performed at [address] [address] Hemoglobin (Bld) [Mass/Vol] 10.9 g/dL Low 12.0-16.0 [facility] Comment on above: Performed By: #### R TOXR, UMAC, UMIC #### Testing performed at [address] [address] MCH (RBC) [Entitic mass] 28.9 pg Normal 26.0-35.0 [facility] Comment on above: Performed By: #### R TOXR, UMAC, UMIC #### Testing performed at [address] [address] MCHC (RBC) [Mass/Vol] 33.8 g/dL Normal 27.0-37.[address] [facility] Comment on above: Performed By: #### R TOXR, UMAC, UMIC #### Testing performed at [place] [id number] MCV (RBC) [Entitic vol] 85.6 fL Normal 80.0-100.0 [facility] Comment on above: Performed By: #### R TOXR, UMAC, UMIC #### [place] [address] Platelet mean volume (Bld) [Entitic vol] 9.5 fL Normal 7.4-11.0 [facility] Comment on above: Performed By: #### R TOXR, UMAC, UMIC #### Testing performed at [place] [id number] Platelets (Bld) [#/Vol] 129 10*3/uL Low 130.0-400.0 [facility] Comment on above: Performed By: #### R TOXR, UMAC, UMIC #### Testing performed at [place] [id number] RBC (Bld) [#/Vol] 3.76 10*6/uL Low 4.0-5.4 [facility] Comment on above: Performed By: #### R TOXR, UMAC, UMIC #### Testing performed at [address] [address] WBC (Bld) [#/Vol] 15.9 10*3/uL High 3.6-11.0 [facility] Comment on above: Performed By: #### R TOXR, UMAC, UMIC #### Testing performed at [address] [address] CBCon 02-12-2021 ABSOLUTE BAS 0.1 10*3/uL Normal 0.0-0.2 [facility] Comment on above: Result Comment: Test ing performed at [place] [address] Performed By: #### R TOXR, UMAC, UMIC #### [place] [address] ABSOLUTE EOS 0.10 10*3/uL Normal 0.0-0.7 [facility] Comment on above: Performed By: #### R TOXR, UMAC, UMIC #### [place] [address] ABSOLUTE NEUTROPHIL COUNT 7.6 10*3/uL High 1.4-6.5 [facility] Comment on above: Performed By: #### R TOXR, UMAC, UMIC #### [place] [address] Basophils/100 WBC (Bld) 0.9 % Normal 0.0-2.0 [facility] Comment on above: Performed By: #### R TOXR, UMAC, UMIC #### [place] [address] DTYPE AUTO DIFF Normal [facility] Comment on above: Performed By: #### R TOXR, UMAC, UMIC #### [place] [address] Eosinophils/100 WBC (Bld) 0.6 % Normal 0.0-11.0 [facility] Comment on above: Performed By: #### R TOXR, UMAC, UMIC #### [place] [address] Lymphocytes (Bld) [#/Vol] 2.20 10*3/uL Normal 1.2-3.4 [facility] Comment on above: Performed By: #### R TOXR, UMAC, UMIC #### [place] [address] Lymphocytes/100 WBC (Bld) 20.5 % Normal 20.0-55.0 [facility] Comment on above: Performed By: #### R TOXR, UMAC, UMIC #### [place] [address] Monocytes (Bld) [#/Vol] 0.7 10*3/uL Normal 0.0-0.7 [facility] Comment on above: Performed By: #### R TOXR, UMAC, UMIC #### [place] [address] Monocytes/100 WBC (Bld) 6.3 % Normal 0.0-10.0 [facility] Comment on above: Performed By: #### R TOXR, UMAC, UMIC #### [place] [address] Neutrophils/100 WBC (Bld) 71.7 % Normal 37.0-75.0 [facility] Comment on above: Performed By: #### R TOXR, UMAC, UMIC #### [place] [address] Erythrocyte distribution width (RBC) [Ratio] 14.0 % Normal 11.5-14.5 [facility] Comment on above: Performed By: #### R TOXR, UMAC, UMIC #### [place] [address] Hematocrit (Bld) [Volume fraction] 36.7 % Normal 36.0-48.0 [facility] Comment on above: Performed By: #### R TOXR, UMAC, UMIC #### [place] [address] Hemoglobin (Bld) [Mass/Vol] 12.4 g/dL Normal 12.0-16.0 [facility] Comment on above: Performed By: #### R TOXR, UMAC, UMIC #### [place] [address] MCH (RBC) [Entitic mass] 28.5 pg Normal 26.0-35.0 [facility] Comment on above: Performed By: #### R TOXR, UMAC, UMIC #### Testing performed at [place] [id number] MCHC (RBC) [Mass/Vol] 33.7 g/dL Normal 27.0-37.[address] [facility] Comment on above: Performed By: #### R TOXR, UMAC, UMIC #### Testing performed at [place] [id number] MCV (RBC) [Entitic vol] 84.5 fL Normal 80.0-100.0 [facility] Comment on above: Performed By: #### R TOXR, UMAC, UMIC #### [place] [address] Platelet mean volume (Bld) [Entitic vol] 9.1 fL Normal 7.4-11.0 [facility] Comment on above: Performed By: #### R TOXR, UMAC, UMIC #### [place] [address] Platelets (Bld) [#/Vol] 152 10*3/uL Normal 130.0-400.0 [facility] Comment on above: Performed By: #### R TOXR, UMAC, UMIC #### [place] [address] RBC (Bld) [#/Vol] 4.34 10*6/uL Normal 4.0-5.4 [facility] Comment on above: Performed By: #### R TOXR, UMAC, UMIC #### Testing performed at [place] [id number] WBC (Bld) [#/Vol] 10.6 10*3/uL Normal 3.6-11.0 [facility] Comment on above: Performed By: #### R TOXR, UMAC, UMIC #### [place] [address] NOVEL CORONAVIRUSon 02-13-20 21 NARRATIVE This test was perfor med using isothermal JIMMY and has been approved as Emergency Use Authorization (EUA) for the qualitative detection [id number] nucleic acid. Normal [facility] Comment on above: Result Comment: Test ing performed at [place] [address] Performed By: #### R TOXRTAMANNA UMIC #### [place] [address] SARS-CoV-2 (COVID-19) RNA JIMMY+probe Ql (Unsp spec) Not detected Normal NOT DETECTED [facility] Comment on above: Result Comment: Nega tive results do not preclude SARS-CoV-2 infection and should not be used as the sole basis for treatment or other patient management decisions. Optimum specimen types and timing for peak viral levels during infections caused by SARS-CoV-2 has not been determined. The possibility of a false negative result should especially be considered if the patient's recent exposures or clinical presentation suggest that SARS-CoV-2 infection is probable, and diagnostic tests for other causes of illness (e.g., other respiratory illness) are negative. Collection of a new specimen and re-testing may be necessary if the patient is critically ill or clinically deteriorating. Performed By: #### R TOXR UMWANDA SNYDERIC #### [place] [address] TYPE AND SCREEN CROSSMATCH C ONVERTIBLEon 02-12-2021 TYPE AND SCREEN CROSSMATCH CONVERTIBLE UNITS ORDERED 0 WORKUP EXPIRES 02/15/2021,2359 ABO/RH(D) O POSITIVE ANTIBODY SCREEN NEGATIVE ARM BAND NUMBER [id number] Testing performed at [place] [address] Normal [facility] Comment on above: Performed By: #### R TOXRTAMANNA UMIC #### [place] [address] RAPID TOX SCREEN,URINE WITH REFLEXon 02-11-2021 AMPHETAMINE Negative Normal NEGATIVE [facility] Comment on above: Performed By: #### R TOXR UMCLAUDIO UMIC #### [place] [address] BARBITURATES Negative Normal NEGATIVE [facility] Comment on above: Performed By: #### R TOXR UMWANDA SNYDERIC #### Testing performed at [place] [id number] BENZODIAZEPINES Negative Normal NEGATIVE [facility] Comment on above: Performed By: #### R TOXR, UMAC, UMIC #### Testing performed at [address] [address] BUPRENORPHINE Negative Normal NEGATIVE [facility] Comment on above: Result Comment: Test ing performed at [place] [address] Performed By: #### R TOXR, UMAC, UMIC #### [place] [address] CANNABINOIDS Negative Normal NEGATIVE [facility] Comment on above: Performed By: #### R TOXR, UMAC, UMIC #### [place] [address] COCAINE Negative Normal NEGATIVE [facility] Comment on above: Performed By: #### R TOXR, UMAC, UMIC #### Testing performed at [place] [id number] METHADONE Negative Normal NEGATIVE [facility] Comment on above: Performed By: #### R TOXR, UMAC, UMIC #### [place] [address] METHAMPHETAMINE Negative Normal NEGATIVE [facility] Comment on above: Performed By: #### R TOXR, UMAC, UMIC #### Testing performed at [address] [place] [address] OPIATES Negative Normal NEGATIVE [facility] Comment on above: Performed By: #### R TOXR, UMAC, UMIC #### Testing performed at [address] [address] OXYCODONE Negative Normal NEGATIVE [facility] Comment on above: Performed By: #### R TOXR, UMAC, UMIC #### [place] [address] PHENCYCLIDINE Negative Normal NEGATIVE [facility] Comment on above: Performed By: #### R TOXR, UMAC, UMIC #### Testing performed at [place] [id number] PROPOXYPHENE Negative Normal NEGATIVE [facility] Comment on above: Performed By: #### R TOXR, UMAC, UMIC #### Testing performed at [address] [address] TRICYCLIC ANTIDEPRESSANTS Negative Normal NEGATIVE [facility] Comment on above: Performed By: #### R TOXR, UMAC, UMIC #### Testing performed at [address] [address] URINE MACROSCOPICon 02-12-20 21 Bilirubin Ql (U) Negative Normal NEGATIVE [facility] Comment on above: Performed By: #### R TOXR, UMAC, UMIC #### [place] [address] Clarity (U) CLEAR Normal CLEAR [facility] Comment on above: Performed By: #### R TOXR, UMAC, UMIC #### [place] [address] Color (U) YELLOW Normal YELLOW [facility] Comment on above: Performed By: #### R TOXR, UMAC, UMIC #### Testing performed at [address] [address] Glucose Ql (U) Negative Normal NEGATIVE [facility] Comment on above: Performed By: #### R TOXR, UMAC, UMIC #### Testing performed at [address] [address] pH (U) 6.0 [pH] Normal 5.0-7.0 [facility] Comment on above: Performed By: #### R TOXR, UMAC, UMIC #### Testing performed at [address] [place] [address] URINE HEMOGLOBIN Negative Normal NEGATIVE [facility] Comment on above: Performed By: #### R TOXR, UMAC, UMIC #### Testing performed at [address] [place] [address] URINE KETONE Negative Normal NEGATIVE [facility] Comment on above: Performed By: #### R TOXR, UMAC, UMIC #### [place] [address] URINE LEUKOTEST LARGE Abnormal NEGATIVE [facility] Comment on above: Result Comment: Test ing performed at [place] [address] Performed By: #### R TOXR, UMAC, UMIC #### [place] [address] URINE NITRATES Negative Normal NEGATIVE [facility] Comment on above: Performed By: #### R TOXR, UMAC, UMIC #### [place] [address] URINE SPEC GRAVITY 1.010 Normal 1.010-1.025 [facility] Comment on above: Performed By: #### R TOXR, UMAC, UMIC #### [place] [address] URINE TOTAL PROTEIN Negative Normal NEGATIVE [facility] Comment on above: Performed By: #### R TOXR, UMAC, UMIC #### [place] [address] Urobilinogen Qn (U) 0.2 {Ita'U}/dL Normal 0.2-1.0 [facility] Comment on above: Performed By: #### R TOXR, UMAC, UMIC #### [place] [address] URINE MICROSCOPICon 02-12-20 21 BACTERIA TRACE Abnormal NEGATIVE [facility] Comment on above: Performed By: #### R TOXR, UMAC, UMIC #### [place] [address] CASTS NONE Normal [facility] Comment on above: Performed By: #### R TOXR, UMAC, UMIC #### [place] [address] CRYSTAL NONE Normal NONE [facility] Comment on above: Performed By: #### R TOXR, UMAC, UMIC #### [place] [address] Epithelial cells LM Ql (Urine sed) 20 TO 30 Normal [facility] Comment on above: Performed By: #### R TOXR, UMAC, UMIC #### [place] [address] Mucus Ql (Urine sed) TRACE Abnormal NEGATIVE [facility] Comment on above: Performed By: #### R TOXR, UMAC, UMIC #### [place] [address] URINE COMMENT POSSIBLY CONTAMINATE D SPECIMEN, CULTURE MUST BE ORDERED SEPARATELY IF DEEMED NECESSARY. Normal [facility] Comment on above: Result Comment: Test ing performed at [place] [address] Performed By: #### R TOXR, UMAC, UMIC #### [place] [address] URINE RBC'S Negative Normal NEGATIVE [facility] Comment on above: Performed By: #### R TOXR, UMAC, UMIC #### [place] [address] URINE WBC'S '5 TO 10 Normal NEGATIVE [facility] Comment on above: Performed By: #### R TOXR, UMAC, UMIC #### [place] [address] CHLAM/GC AMPLIFon 02-10-2021 CHLAMYDIA NUC. AMP Negative Normal [facility] Comment on above: Result Comment: Refe rence range: Negative GONOCOCCUS NUC. AMP Negative Normal [facility] Comment on above: Result Comment: Refe rence range: Negative [facility] AMNISUREon 02-09-2021 AMNISURE Negative Normal NEGATIVE [facility] Comment on above: Result Comment: NO A MNIOTIC FLUID DETECTED Testing performed at [place] [address] Performed By: #### R TOXR, UMAC, UMIC #### [place] [address] FERN TESTon 02-09-2021 FERN TEST Negative Normal [facility] Comment on above: Result Comment: Test ing performed at [place] [address] Performed By: #### R TOXR, UMAC, UMIC #### [place] [address] RAPID TOX SCREEN,URINE WITH REFLEXon 02-09-2021 AMPHETAMINE Negative Normal NEGATIVE [facility] Comment on above: Result Comment: <500 ng/ml CUTOFF Performed By: #### U MAC, RTOXR #### [place] [address] BARBITURATES Negative Normal NEGATIVE [facility] Comment on above: Result Comment: <200 ng/ml CUTOFF Performed By: #### U MAC, RTOXR #### [place] [address] BENZODIAZEPINES Negative Normal NEGATIVE [facility] Comment on above: Result Comment: <150 ng/ml CUTOFF Performed By: #### U MAC, RTOXR #### [place] [address] BUPRENORPHINE Negative Normal NEGATIVE [facility] Comment on above: Result Comment: <10 ng/ml CUTOFF Testing performed at [place] [address] Performed By: #### U MAC, RTOXR #### [place] [address] CANNABINOIDS Negative Normal NEGATIVE [facility] Comment on above: Result Comment: <50 ng/ml CUTOFF Performed By: #### U MAC, RTOXR #### [place] [address] COCAINE Negative Normal NEGATIVE [facility] Comment on above: Result Comment: <150 ng/ml CUTOFF Performed By: #### U MAC, RTOXR #### [place] [address] METHADONE Negative Normal NEGATIVE [facility] Comment on above: Result Comment: <200 ng/ml CUTOFF Performed By: #### U MAC, RTOXR #### [place] [address] METHAMPHETAMINE Negative Normal NEGATIVE [facility] Comment on above: Result Comment: <500 ng/ml CUTOFF Performed By: #### U MAC, RTOXR #### [place] [address] OPIATES Negative Normal NEGATIVE [facility] Comment on above: Result Comment: <100 ng/ml CUTOFF Performed By: #### U MAC, RTOXR #### Testing performed at [address], [facility] OXYCODONE Negative Normal NEGATIVE [facility] Comment on above: Result Comment: <100 ng/ml CUTOFF Performed By: #### U MAC, RTOXR #### [place] [address] PHENCYCLIDINE Negative Normal NEGATIVE [facility] Comment on above: Result Comment: <25 ng/ml CUTOFF Performed By: #### U MAC, RTOXR #### Testing performed at [address], [place] [address] PROPOXYPHENE Negative Normal NEGATIVE [facility] Comment on above: Result Comment: <300 ng/ml CUTOFF Performed By: #### U MAC, RTOXR #### Testing performed at [address], [place] [address] TRICYCLIC ANTIDEPRESSANTS Negative Normal NEGATIVE [facility] Comment on above: Result Comment: <300 ng/ml CUTOFF Performed By: #### U MAC, RTOXR #### [place] [address] URINE MACROSCOPICon 02-10-20 21 Bilirubin Ql (U) Negative Normal NEGATIVE [facility] Comment on above: Performed By: #### U MAC, RTOXR #### Testing performed at [address] [place] [address] Clarity (U) CLEAR Normal CLEAR [facility] Comment on above: Performed By: #### U MAC, RTOXR #### Testing performed at [address] [place] [address] Color (U) YELLOW Normal YELLOW [facility] Comment on above: Performed By: #### U MAC, RTOXR #### [place] [address] Glucose Ql (U) Negative Normal NEGATIVE [facility] Comment on above: Performed By: #### U MAC, RTOXR #### [place] [address] pH (U) 7.0 [pH] Normal 5.0-7.0 [facility] Comment on above: Performed By: #### U MAC, RTOXR #### [place] [address] URINE HEMOGLOBIN Negative Normal NEGATIVE [facility] Comment on above: Performed By: #### U MAC, RTOXR #### [place] [address] URINE KETONE Negative Normal NEGATIVE [facility] Comment on above: Performed By: #### U MAC, RTOXR #### [place] [address] URINE LEUKOTEST Negative Normal NEGATIVE [facility] Comment on above: Result Comment: Test ing performed at [place] [address] Performed By: #### U MAC, RTOXR #### [place] [address] URINE NITRATES Negative Normal NEGATIVE [facility] Comment on above: Performed By: #### U MAC, RTOXR #### [place] [address] URINE SPEC GRAVITY 1.020 Normal 1.010-1.025 [facility] Comment on above: Performed By: #### U MAC, RTOXR #### [place] [address] URINE TOTAL PROTEIN Negative Normal NEGATIVE [facility] Comment on above: Performed By: #### U MAC, RTOXR #### [place] [address] Urobilinogen Qn (U) 2.0 {Ita'U}/dL High 0.2-1.0 [facility] Comment on above: Performed By: #### U MAC, RTOXR #### [place] [address] AMNISURE ROMOrdered By: Pavithra Flower on 02-08-2021 Oycza-5-Qbvktcbuiqdit. placental Ql (Vag fld) Negative NEGATIVE [facility] Comment on above: NO AMNIOTIC FLUID DE TECTED Testing performed at [place] [address] [facility] FERN TEST VAGINAL FLUIDOrder ed By: Nehal Flower on 02-08-2021 Crystals LM Nom (Amn fld) Negative [facility] Comment on above: Testing performed at [place] [address] [facility] RAPID TOX SCREEN WITH RELEX TO DRUGMCOrdered By: Nehal Flower on 02-08-2021 Amphetamine (U) [Mass/Vol] Negative NEGATIVE NG/ML [facility] Comment on above: <500 ng/ml CUTOFF Barbiturates Screen Ql (U) Negative NEGATIVE NG/ML [facility] Comment on above: <200 ng/ml CUTOFF Benzodiazepines Ql (U) Negative NEGAT DUNIA NG/ML [facility] Comment on above: <150 ng/ml CUTOFF Benzoylecgonine Ql (U) Negative NEGAT DUNIA NG/ML [facility] Comment on above: <150 ng/ml CUTOFF Buprenorphine Ql (U) Negative NEGATIV E NG/ML [facility] Comment on above: <10 ng/ml CUTOFF Testing performed at [place] [address] Cannabinoids Screen Ql (U) Negative NEGATIVE NG/ML [facility] Comment on above: <50 ng/ml CUTOFF Methadone Screen Ql (U) Negative NEGATIVE NG/ML [facility] Comment on above: <200 ng/ml CUTOFF Methamphetamine (U) [Mass/Vol] Negative NEGATIVE NG/ML [facility] Comment on above: <500 ng/ml CUTOFF Opiates Screen Ql (U) Negative NEGATI VE NG/ML [facility] Comment on above: <100 ng/ml CUTOFF oxyCODONE Ql (U) Negative NEGATIVE NG/ML [facility] Comment on above: <100 ng/ml CUTOFF Phencyclidine Screen method >25 ng/mL Ql (U) Negative NEGATIVE NG/ML [facility] Comment on above: <25 ng/ml CUTOFF Propoxyphene+Norpropox yphene Screen Ql (U) Negative NEGATIVE NG/ML [facility] Comment on above: <300 ng/ml CUTOFF Tricyclic antidepressants Screen Ql (U) Negative NEGATIVE NG/ML [facility] Comment on above: <300 ng/ml CUTOFF [facility] URINALYSIS, MACROOrdered By: Nehal Flower on 02-08-2021 Bilirubin Ql (U) Negative NEGATIVE [facility] Clarity (U) CLEAR CLEAR [facility] Color (U) YELLOW YELLOW [facility] Glucose Test strip (U) [Mass/Vol] Negative NEGATIVE mg/dl [facility] Hemoglobin Ql (U) Negative NEGATIVE [facility] Interpretation and review of laboratory results Abnormal [facility] Ketones (U) [Mass/Vol] Negative NEGAT DUNIA mg/dl [facility] Leukocyte esterase Test strip Ql (U) Negative NEGATIVE [facility] Comment on above: Testing performed at [facility], [place], [place] [address] Nitrite Ql (U) Negative NEGATIVE [facility] pH (U) 7.0 [pH] [facility] Protein Ql (U) Negative NEGATIVE mg/dl [facility] Specific gravity (U) [Rel density] 1.020 [facility] Urobilinogen (U) [Mass/Vol] 2.0 mg/dL High [facility] Heart R-R duration USO rdered By: Mady Amor on 02-07-2021 Mady Amor MD 02/07/2021 12:14 PM Non-stress Test Gestational age: 38w2d Indication: Rule out labor Baseline: 135 bpm 15x15s: present Variability: moderate Decelerations: absent Contractions: q1-2min Duration >20 minutes Comments: REACTIVE 02/07/21 Mady Amor MD [facility] Mady Amor MD - 02/07/2021 10:20 AM EDT Non-stress Test Gestational age: 38w2d Indication: Rule out labor Baseline: 135 bpm 15x15s: present Variability: moderate Decelerations: absent Contractions: q1-2min Duration >20 minutes Comments: REACTIVE 02/07/21 Mady Amor MD [facility] NOVEL CORONAVIRUSon 05-04-20 21 NARRATIVE This test was perfor med using isothermal JIMMY and has been approved as Emergency Use Authorization (EUA) for the qualitative detection [id number] nucleic acid. Normal [facility] Comment on above: Result Comment: Test ing performed at [place] [address] Performed By: #### C OVID #### [place] [address] SARS-CoV-2 (COVID-19) RNA JIMMY+probe Ql (Unsp spec) Not detected Normal NOT DETECTED [facility] Comment on above: Result Comment: Nega tive results do not preclude SARS-CoV-2 infection and should not be used as the sole basis for treatment or other patient management decisions. Optimum specimen types and timing for peak viral levels during infections caused by SARS-CoV-2 has not been determined. The possibility of a false negative result should especially be considered if the patient's recent exposures or clinical presentation suggest that SARS-CoV-2 infection is probable, and diagnostic tests for other causes of illness (e.g., other respiratory illness) are negative. Collection of a new specimen and re-testing may be necessary if the patient is critically ill or clinically deteriorating. Performed By: #### C OVID #### [place] [address] RAPID TOX SCREEN,URINE WITH REFLEXon 02-07-2021 AMPHETAMINE Negative Normal NEGATIVE [facility] Comment on above: Result Comment: <500 ng/ml CUTOFF Performed By: #### R TOXR, UMAC, UMIC #### [place] [address] BARBITURATES Negative Normal NEGATIVE [facility] Comment on above: Result Comment: <200 ng/ml CUTOFF Performed By: #### R TOXR, UMAC, UMIC #### [place] [address] BENZODIAZEPINES Negative Normal NEGATIVE [facility] Comment on above: Result Comment: <150 ng/ml CUTOFF Performed By: #### R TOXR, UMAC, UMIC #### [place] [address] BUPRENORPHINE Negative Normal NEGATIVE [facility] Comment on above: Result Comment: <10 ng/ml CUTOFF Testing performed at [place] [address] Performed By: #### R TOXR, UMAC, UMIC #### [place] [address] CANNABINOIDS Negative Normal NEGATIVE [facility] Comment on above: Result Comment: <50 ng/ml CUTOFF Performed By: #### R TOXR, UMAC, UMIC #### [place] [address] COCAINE Negative Normal NEGATIVE [facility] Comment on above: Result Comment: <150 ng/ml CUTOFF Performed By: #### R TOXR, UMAC, UMIC #### [place] [address] METHADONE Negative Normal NEGATIVE [facility] Comment on above: Result Comment: <200 ng/ml CUTOFF Performed By: #### R TOXR, UMAC, UMIC #### [place] [address] METHAMPHETAMINE Negative Normal NEGATIVE [facility] Comment on above: Result Comment: <500 ng/ml CUTOFF Performed By: #### R TOXR, UMAC, UMIC #### [place] [address] OPIATES Negative Normal NEGATIVE [facility] Comment on above: Result Comment: <100 ng/ml CUTOFF Performed By: #### R TOXR, UMAC, UMIC #### [place] [address] OXYCODONE Negative Normal NEGATIVE [facility] Comment on above: Result Comment: <100 ng/ml CUTOFF Performed By: #### R TOXR, UMAC, UMIC #### [place] [address] PHENCYCLIDINE Negative Normal NEGATIVE [facility] Comment on above: Result Comment: <25 ng/ml CUTOFF Performed By: #### R TOXR, UMAC, UMIC #### [place] [address] PROPOXYPHENE Negative Normal NEGATIVE [facility] Comment on above: Result Comment: <300 ng/ml CUTOFF Performed By: #### R TOXR, UMAC, UMIC #### [place] [address] TRICYCLIC ANTIDEPRESSANTS Negative Normal NEGATIVE [facility] Comment on above: Result Comment: <300 ng/ml CUTOFF Performed By: #### R TOXR, UMAC, UMIC #### [place] [address] URINE MACROSCOPICon 02-08-20 21 Bilirubin Ql (U) Negative Normal NEGATIVE [facility] Comment on above: Performed By: #### R TOXR, UMAC, UMIC #### [place] [address] Clarity (U) CLEAR Normal CLEAR [facility] Comment on above: Performed By: #### R TOXR, UMAC, UMIC #### [place] [address] Color (U) YELLOW Normal YELLOW [facility] Comment on above: Performed By: #### R TOXR, UMAC, UMIC #### [place] [address] Glucose Ql (U) Negative Normal NEGATIVE [facility] Comment on above: Performed By: #### R TOXR, UMAC, UMIC #### [place] [address] pH (U) 7.0 [pH] Normal 5.0-7.0 [facility] Comment on above: Performed By: #### R TOXR, UMAC, UMIC #### [place] [address] URINE HEMOGLOBIN Negative Normal NEGATIVE [facility] Comment on above: Performed By: #### R TOXR, UMAC, UMIC #### [place] [address] URINE KETONE Negative Normal NEGATIVE [facility] Comment on above: Performed By: #### R TOXR, UMAC, UMIC #### [place] [address] URINE LEUKOTEST SMALL Abnormal NEGATIVE [facility] Comment on above: Result Comment: Test ing performed at [place] [address] Performed By: #### R TOXR, UMAC, UMIC #### [place] [address] URINE NITRATES Negative Normal NEGATIVE [facility] Comment on above: Performed By: #### R TOXR, UMAC, UMIC #### [place] [address] URINE SPEC GRAVITY 1.010 Normal 1.010-1.025 [facility] Comment on above: Performed By: #### R TOXR, UMAC, UMIC #### [place] [address] URINE TOTAL PROTEIN Negative Normal NEGATIVE [facility] Comment on above: Performed By: #### R TOXR, UMAC, UMIC #### [place] [address] Urobilinogen Qn (U) 0.2 {Ita'U}/dL Normal 0.2-1.0 [facility] Comment on above: Performed By: #### R TOXR, UMAC, UMIC #### [place] [address] URINE MICROSCOPICon 02-08-20 21 BACTERIA TRACE Abnormal NEGATIVE [facility] Comment on above: Performed By: #### R TOXR, UMAC, UMIC #### [place] [address] CASTS NONE Normal NONE [facility] Comment on above: Performed By: #### R TOXR, UMAC, UMIC #### [place] [address] CRYSTAL NONE Normal NONE [facility] Comment on above: Performed By: #### R TOXR, UMAC, UMIC #### Testing performed at [place] [id number] Epithelial cells LM Ql (Urine sed) 1 TO 5 Normal [facility] Comment on above: Performed By: #### R TOXR, UMAC, UMIC #### Testing performed at [facility] [address] [place] [address] Mucus Ql (Urine sed) 1+ Abnormal NEGATIVE [facility] Comment on above: Performed By: #### R TOXR, UMAC, UMIC #### [place] [address] URINE COMMENT CULTURE CRITERIA NOT MET, NO CULTURE PERFORMED. Normal [facility] Comment on above: Result Comment: Test ing performed at [place] [address] Performed By: #### R TOXR, UMAC, UMIC #### [place] [address] URINE RBC'S Negative Normal NEGATIVE [facility] Comment on above: Performed By: #### R TOXR, UMAC, UMIC #### [place] [address] URINE WBC'S 1 TO 5 Normal NEGATIVE [facility] Comment on above: Performed By: #### R TOXR, UMAC, UMIC #### [place] [address] NOVEL CORONAVIRUS LAB 1 - NA SOPHARYNGEALOrdered By: Nehal Flower on 02-06-2021 NARRATIVE -1 This test was perfor med using isothermal JIMMY and has been approved as Emergency Use Authorization (EUA) for the qualitative detection [id number] nucleic acid. [facility] Comment on above: Testing performed at [place] [address] SARS-CoV-2 (COVID-19) RNA JIMMY+probe Ql (Unsp spec) Not detected NOT DETECTED [facility] Comment on above: Negative results do not preclude SARS-CoV-2 infection and should not be used as the sole basis for treatment or other patient management decisions. Optimum specimen types and timing for peak viral levels during infections caused by SARS-CoV-2 has not been determined. The possibility of a false negative result should especially be considered if the patient's recent exposures or clinical presentation suggest that SARS-CoV-2 infection is probable, and diagnostic tests for other causes of illness (e.g., other respiratory illness) are negative. Collection of a new specimen and re-testing may be necessary if the patient is critically ill or clinically deteriorating. [facility] No Panel InformationOrdered By: [employer] Ching on 02-06-2021 Interpretation and review of laboratory results Abnormal [facility] RAPID TOX SCREEN WITH RELEX TO DRUGMCOrdered By: [employer] Ching on 02-06-2021 Amphetamine (U) [Mass/Vol] Negative NEGATIVE NG/ML [facility] Comment on above: <500 ng/ml CUTOFF Barbiturates Screen Ql (U) Negative NEGATIVE NG/ML [facility] Comment on above: <200 ng/ml CUTOFF Benzodiazepines Ql (U) Negative NEGAT DUNIA NG/ML [facility] Comment on above: <150 ng/ml CUTOFF Benzoylecgonine Ql (U) Negative NEGAT DUNIA NG/ML [facility] Comment on above: <150 ng/ml CUTOFF Buprenorphine Ql (U) Negative NEGATIV E NG/ML [facility] Comment on above: <10 ng/ml CUTOFF Testing performed at [place], [place] [address] Cannabinoids Screen Ql (U) Negative NEGATIVE NG/ML [facility] Comment on above: <50 ng/ml CUTOFF Methadone Screen Ql (U) Negative NEGATIVE NG/ML [facility] Comment on above: <200 ng/ml CUTOFF Methamphetamine (U) [Mass/Vol] Negative NEGATIVE NG/ML [facility] Comment on above: <500 ng/ml CUTOFF Opiates Screen Ql (U) Negative NEGATI VE NG/ML [facility] Comment on above: <100 ng/ml CUTOFF oxyCODONE Ql (U) Negative NEGATIVE NG/ML [facility] Comment on above: <100 ng/ml CUTOFF Phencyclidine Screen method >25 ng/mL Ql (U) Negative NEGATIVE NG/ML [facility] Comment on above: <25 ng/ml CUTOFF Propoxyphene+Norpropox yphene Screen Ql (U) Negative NEGATIVE NG/ML [facility] Comment on above: <300 ng/ml CUTOFF Tricyclic antidepressants Screen Ql (U) Negative NEGATIVE NG/ML [facility] Comment on above: <300 ng/ml CUTOFF [facility] URINALYSIS, MACROOrdered By: Nehal Flower on 02-06-2021 Bilirubin Ql (U) Negative NEGATIVE [facility] Clarity (U) CLEAR CLEAR [facility] Color (U) YELLOW YELLOW [facility] Glucose Test strip (U) [Mass/Vol] Negative NEGATIVE mg/dl [facility] Hemoglobin Ql (U) Negative NEGATIVE [facility] Ketones (U) [Mass/Vol] Negative NEGAT DUNIA mg/dl [facility] Leukocyte esterase Test strip Ql (U) SMALL Abnormal NEGATIVE [facility] Comment on above: Testing performed at [place], [place] [address] Nitrite Ql (U) Negative NEGATIVE [facility] pH (U) 7.0 [pH] [facility] Protein Ql (U) Negative NEGATIVE mg/dl [facility] Specific gravity (U) [Rel density] 1.010 [facility] Urobilinogen (U) [Mass/Vol] 0.2 mg/dL [facility] URINE MICROSCOPICOrdered By: Nehal Flower on 02-06-2021 Bacteria LM.HPF (Urine sed) [#/Area] TRACE Abnormal NEGATIVE [facility] Casts LM.LPF (Urine sed) [#/Area] NONE NONE /LPF [facility] Crystals LM Nom (Urine sed) NONE NONE [facility] Epithelial cells LM Ql (Urine sed) 1 TO 5 /HPF [facility] Mucus Ql (Urine sed) 1+ Abnormal NEGATIVE [facility] RBC LM.HPF (Urine sed) [#/Area] Negative NEGATIVE /HPF [facility] Urine sediment comments LM Linus (Urine sed) CULTURE CRITERIA NOT MET, NO CULTURE PERFORMED. [facility] Comment on above: Testing performed at [place], [place] [address] WBC LM.HPF (Urine sed) [#/Area] 1 TO 5 NEGATIVE /HPF [facility] STREP SCREEN GRP Bon 021 STREP SCREEN GRP B SPECIMEN DESCRIPTION VAGINAL/RECTAL CULTURE STREPTOCOCCUS AGALACTIAE SERO GROUP B * Result Note: THIS STREPTOCOCCI IS PRESUMED TO BE RESISTANT TO CLINDAMYCIN BASED ON THE DETECTION OF INDUCIBLE CLINDAMYCIN RESISTANCE. CLINDAMYCIN MAY STILL BE EFFECTIVE IN SOME PATIENTS. * * Result Note: Testing performed at [place] [address] * REPORT STATUS 01/29/2021 * Result Note: FINAL * - ORGANISM STREPTOCOCCUS AGALACTIAE SERO GROUP B * Result Note: STREPTOCOCCUS AGALACTIAE SERO GROUP B * METHOD JESI AMPICILLIN <=0.25 SUSCEPTIBLE CLINDAMYCIN RESISTANT ERYTHROMYCIN >=8 RESISTANT PENICILLIN G <=0.06 SUSCEPTIBLE TETRACYCLINE >=16 RESISTANT VANCOMYCIN 0.5 SUSCEPTIBLE LEVOFLOXACIN 1 SUSCEPTIBLE CEFOTAXIME <=0.12 SUSCEPTIBLE CEFTRIAXONE <=0.12 SUSCEPTIBLE INDUCIBLE CLINDAMYCIN RESISTANCE POSITIVE Normal [facility] Comment on above: Performed By: #### O BSC #### [place] [address] RPRon 11-29-2020 Reagin Ab RPR Ql (S) Non-Reactive Normal NONREACTIVE A [facility] Comment on above: Result Comment: Test ing performed at [place] [address] Performed By: #### R TOXR, UMAC, UMIC #### [place] [address] CBCon 11-28-2020 ABSOLUTE BAS 0.0 10*3/uL Normal 0.0-0.2 [facility] Comment on above: Result Comment: Test ing performed at [place] [address] Performed By: #### R TOXR, UMAC, UMIC #### [place] [address] ABSOLUTE EOS 0.10 10*3/uL Normal 0.0-0.7 [facility] Comment on above: Performed By: #### R TOXR, UMAC, UMIC #### [place] [address] ABSOLUTE NEUTROPHIL COUNT 6.4 10*3/uL Normal 1.4-6.5 [facility] Comment on above: Performed By: #### R TOXR, UMAC, UMIC #### Testing performed at [address] [address] Basophils/100 WBC (Bld) 0.4 % Normal 0.0-2.0 [facility] Comment on above: Performed By: #### R TOXR, UMAC, UMIC #### Testing performed at [address] [address] DTYPE AUTO DIFF Normal [facility] Comment on above: Performed By: #### R TOXR, UMAC, UMIC #### Testing performed at [address] [address] Eosinophils/100 WBC (Bld) 0.9 % Normal 0.0-11.0 [facility] Comment on above: Performed By: #### R TOXR, UMAC, UMIC #### Testing performed at [address] [address] Lymphocytes (Bld) [#/Vol] 1.40 10*3/uL Normal 1.2-3.4 [facility] Comment on above: Performed By: #### R TOXR, UMAC, UMIC #### Testing performed at [address] [address] Lymphocytes/100 WBC (Bld) 16.8 % Low 20.0-55.0 [facility] Comment on above: Performed By: #### R TOXR, UMAC, UMIC #### Testing performed at [address] [address] Monocytes (Bld) [#/Vol] 0.4 10*3/uL Normal 0.0-0.7 [facility] Comment on above: Performed By: #### R TOXR, UMAC, UMIC #### Testing performed at [address] [address] Monocytes/100 WBC (Bld) 4.5 % Normal 0.0-10.0 [facility] Comment on above: Performed By: #### R TOXR, UMAC, UMIC #### Testing performed at [place] [id number] Neutrophils/100 WBC (Bld) 77.4 % High 37.0-75.0 [facility] Comment on above: Performed By: #### R TOXR, UMAC, UMIC #### [place] [address] Erythrocyte distribution width (RBC) [Ratio] 14.0 % Normal 11.5-14.5 [facility] Comment on above: Performed By: #### R TOXR, UMAC, UMIC #### [place] [address] Hematocrit (Bld) [Volume fraction] 34.8 % Low 36.0-48.0 [facility] Comment on above: Performed By: #### R TOXR, UMAC, UMIC #### [place] [address] Hemoglobin (Bld) [Mass/Vol] 11.7 g/dL Low 12.0-16.0 [facility] Comment on above: Performed By: #### R TOXR, UMAC, UMIC #### Testing performed at [place] [id number] MCH (RBC) [Entitic mass] 30.1 pg Normal 26.0-35.0 [facility] Comment on above: Performed By: #### R TOXR, UMAC, UMIC #### Testing performed at [place] [id number] MCHC (RBC) [Mass/Vol] 33.6 g/dL Normal 27.0-37.[address] [facility] Comment on above: Performed By: #### R TOXR, UMAC, UMIC #### Testing performed at [place] [id number] MCV (RBC) [Entitic vol] 89.3 fL Normal 80.0-100.0 [facility] Comment on above: Performed By: #### R TOXR, UMAC, UMIC #### [place] [address] Platelet mean volume (Bld) [Entitic vol] 9.2 fL Normal 7.4-11.0 [facility] Comment on above: Performed By: #### R TOXR, UMAC, UMIC #### [place] [address] Platelets (Bld) [#/Vol] 169 10*3/uL Normal 130.0-400.0 [facility] Comment on above: Performed By: #### R TOXR, UMAC, UMIC #### [place] [address] RBC (Bld) [#/Vol] 3.89 10*6/uL Low 4.0-5.4 [facility] Comment on above: Performed By: #### R TOXR, UMAC, UMIC #### [place] [address] WBC (Bld) [#/Vol] 8.3 10*3/uL Normal 3.6-11.0 [facility] Comment on above: Performed By: #### R TOXR, UMAC, UMIC #### [place] [address] GLUCOSE POST LOADINGon 11-28 GLUCOSE POST LOADING 126 MG/DL Normal 65-140 [facility] Comment on above: Result Comment: Test ing performed at [place] [address] Performed By: #### R TOXR, UMAC, UMIC #### [place] [address] Glucose 1 Hr post 50 g glucose PO [Mass/Vol] 126 mg/dL [facility] Comment on above: Testing performed at [address] CBCon 11-25-2020 ABSOLUTE BAS 0.0 10*3/uL Normal 0.0-0.2 [facility] Comment on above: Result Comment: Test ing performed at [place] [address] Performed By: #### R TOXR, UMAC, UMIC #### Testing performed at [address] [address] ABSOLUTE EOS 0.10 10*3/uL Normal 0.0-0.7 [facility] Comment on above: Performed By: #### R TOXR, UMAC, UMIC #### Testing performed at [address] [address] ABSOLUTE NEUTROPHIL COUNT 7.7 10*3/uL High 1.4-6.5 [facility] Comment on above: Performed By: #### R TOXR, UMAC, UMIC #### Testing performed at [address] [address] Basophils/100 WBC (Bld) 0.4 % Normal 0.0-2.0 [facility] Comment on above: Performed By: #### R TOXR, UMAC, UMIC #### [place] [address] DTYPE AUTO DIFF Normal [facility] Comment on above: Performed By: #### R TOXR, UMAC, UMIC #### Testing performed at [address] [address] Eosinophils/100 WBC (Bld) 0.9 % Normal 0.0-11.0 [facility] [facility] Comment on above: Performed By: #### R TOXR, UMAC, UMIC #### Testing performed at [address] [address] Lymphocytes (Bld) [#/Vol] 2.20 10*3/uL Normal 1.2-3.4 [facility] Comment on above: Performed By: #### R TOXR, UMAC, UMIC #### Testing performed at [address] [address] Lymphocytes/100 WBC (Bld) 20.3 % Normal 20.0-55.0 [facility] Comment on above: Performed By: #### R TOXR, UMAC, UMIC #### Testing performed at [address] [address] Monocytes (Bld) [#/Vol] 0.7 10*3/uL Normal 0.0-0.7 [facility] Comment on above: Performed By: #### R TOXR, UMAC, UMIC #### Testing performed at [address] [address] Monocytes/100 WBC (Bld) 6.5 % Normal 0.0-10.0 [facility] Comment on above: Performed By: #### R TOXR, UMAC, UMIC #### Testing performed at [address] [address] Neutrophils/100 WBC (Bld) 71.9 % Normal 37.0-75.0 [facility] Comment on above: Performed By: #### R TOXR, UMAC, UMIC #### Testing performed at [address] [address] Erythrocyte distribution width (RBC) [Ratio] 13.4 % Normal 11.5-14.5 [facility] Comment on above: Performed By: #### R TOXR, UMAC, UMIC #### Testing performed at [address] [address] Hematocrit (Bld) [Volume fraction] 34.4 % Low 36.0-48.0 [facility] Comment on above: Performed By: #### R TOXR, UMAC, UMIC #### Testing performed at [address] [address] Hemoglobin (Bld) [Mass/Vol] 11.9 g/dL Low 12.0-16.0 [facility] Comment on above: Performed By: #### R TOXR, UMAC, UMIC #### Testing performed at [address] [address] MCH (RBC) [Entitic mass] 30.2 pg Normal 26.0-35.0 [facility] Comment on above: Performed By: #### R TOXR, UMAC, UMIC #### Testing performed at [address] [address] MCHC (RBC) [Mass/Vol] 34.7 g/dL Normal 27.0-37.[address] [facility] Comment on above: Performed By: #### R TOXR, UMAC, UMIC #### [place] [address] MCV (RBC) [Entitic vol] 87.1 fL Normal 80.0-100.0 [facility] Comment on above: Performed By: #### R TOXR, UMAC, UMIC #### [place] [address] Platelet mean volume (Bld) [Entitic vol] 9.3 fL Normal 7.4-11.0 [facility] Comment on above: Result Comment: Test ing performed at [place] [address] Performed By: #### R TOXR, UMAC, UMIC #### [place] [address] Platelets (Bld) [#/Vol] 176 10*3/uL Normal 130.0-400.0 [facility] Comment on above: Performed By: #### R TOXR, UMAC, UMIC #### [place] [address] RBC (Bld) [#/Vol] 3.95 10*6/uL Low 4.0-5.4 [facility] Comment on above: Performed By: #### R TOXR, UMAC, UMIC #### [place] [address] WBC (Bld) [#/Vol] 10.8 10*3/uL Normal 3.6-11.0 [facility] Comment on above: Performed By: #### R TOXR, UMAC, UMIC #### [place] [address] CMP FASTINGon 11-25-2020 A:G RATIO 1.2 RATIO Low 1.3-2.2 [facility] Comment on above: Performed By: #### R TOXR, UMAC, UMIC #### Testing performed at [address] [place] [address] ALBUMIN 3.4 G/dl Low 3.5-5.0 [facility] Comment on above: Performed By: #### R TOXR, UMAC, UMIC #### Testing performed at [address] [place] [address] ALP [Catalytic activity/Vol] 64 U/L Normal 38-126 [facility] Comment on above: Performed By: #### R TOXR, UMAC, UMIC #### Testing performed at [address] [address] ALT [Catalytic activity/Vol] 30 U/L Normal <35 [facility] Comment on above: Performed By: #### R TOXR, UMAC, UMIC #### Testing performed at [address] [address] AST [Catalytic activity/Vol] 35 U/L Normal 14-36 [facility] Comment on above: Performed By: #### R TOXR, UMAC, UMIC #### Testing performed at [address] [address] Bilirubin [Mass/Vol] 0.2 mg/dL Normal 0.2-1.3 [facility] Comment on above: Performed By: #### R TOXR, UMAC, UMIC #### Testing performed at [address] [address] Calcium [Mass/Vol] 9.0 mg/dL Normal 8.4-10.2 [facility] Comment on above: Performed By: #### R TOXR, UMAC, UMIC #### Testing performed at [address] [address] Chloride [Moles/Vol] 103 mmol/L Normal 98-107 [facility] Comment on above: Result Comment: Plea note: Triglyceride levels of 600mg/dL or higher may positively bias chloride results by approximately 2.1 mmol Performed By: #### R TOXR, UMAC, UMIC #### Testing performed at [address] [address] CO2 [Moles/Vol] 24 mmol/L Normal 22-30 [facility] Comment on above: Performed By: #### R TOXR, UMAC, UMIC #### [place] [address] Creatinine [Mass/Vol] 0.50 mg/dL Low 0.7-1.[address] [facility] Comment on above: Performed By: #### R TOXR, UMAC, UMIC #### [place] [address] EST. GFR, >60 Normal [facility] Comment on above: Performed By: #### R TOXR, UMAC, UMIC #### [place] [address] EST. GFR,Non >60 Normal [facility] Comment on above: Performed By: #### R TOXR, UMAC, UMIC #### [place] [address] GFR Information Average GFR for 20-2 9 years old = 116. Normal [facility] Comment on above: Result Comment: [employer] montserrat Kidney disease, GFR = <60. Kidney failure, GFR = <15. The GFR estimate is not adjusted for extreme body surface area or acute process, nor has it been validated for women or ethnic groups other than and . Testing performed at [place] [address] Performed By: #### R TOXR, UMAC, UMIC #### [place] [address] Glucose [Mass/Vol] 90 mg/dL Normal 70-100 [facility] Comment on above: Result Comment: NORMAL <100 mg/dL PREDIABETES 101-126 mg/dL DIABETES 126 mg/dL or higher Performed By: #### R TOXR, UMAC, UMIC #### [place] [address] Potassium [Moles/Vol] 3.2 mmol/L Low 3.5-5.[address] [facility] Comment on above: Performed By: #### R TOXR, UMAC, UMIC #### Testing performed at [facility] [address] [place] [address] Protein [Mass/Vol] 6.2 g/dL Low 6.3-8.2 [facility] Comment on above: Performed By: #### R TOXR UMAC, UMIC #### Testing performed at [facility] [address] [place] [address] Sodium [Moles/Vol] 131 mmol/L Low 137-145 [facility] Comment on above: Performed By: #### R TOXR, UMCLAUDIO, UMIC #### Testing performed at [place] [id number] Urea nitrogen [Mass/Vol] 8 mg/dL Normal 7-20 [facility] Comment on above: Performed By: #### R TOXR UMCLAUDIO, UMIC #### [place] [address] CT HEAD WITHOUT CONTRASTon 0 11-25-2020 CT HEAD WITHOUT CONTRAST CT BRAIN WITHOUT CONTRAST HISTORY: Headache, vision changes, 6 months . COMPARISON: None available. TECHNIQUE: Helical CT images were acquired from the skull base to the vertex without the use of intravenous contrast. Dose reduction techniques were achieved by using automated exposure control and/or adjustment of mA and/or kV according to patient size and/or use of iterative reconstruction technique. FINDINGS: BRAIN PARENCHYMA/CSF SPACES: Ventricles are normal in size for age. There is no hemorrhage, mass effect or midline shift. There are no other significant findings. PARANASAL SINUSES: Minimal partial opacification of the right ethmoid air cells and left ethmoid air cells consistent with chronic sinusitis. SKULL BASE AND CALVARIUM: Normal. EXTRACRANIAL SOFT TISSUES: Normal. IMPRESSION: 1. No acute intracranial abnormality. 2. Minimal sinusitis. Normal [facility] URINE MACROSCOPICon 11-25-19 21 Bilirubin Ql (U) Negative Normal NEGATIVE [facility] Comment on above: Performed By: #### R TOXR, UMAC, UMIC #### Testing performed at [facility] [address] [place] [address] Clarity (U) CLEAR Normal CLEAR [facility] Comment on above: Performed By: #### R TOXR, UMCLAUDIO, UMIC #### [place] [address] Color (U) YELLOW Normal YELLOW [facility] Comment on above: Performed By: #### R TOXR, UMAC, UMIC #### [place] [address] Glucose Ql (U) Negative Normal NEGATIVE [facility] Comment on above: Performed By: #### R TOXR, UMAC, UMIC #### [place] [address] pH (U) 7.0 [pH] Normal 5.0-7.0 [facility] Comment on above: Performed By: #### R TOXR, UMAC, UMIC #### [place] [address] URINE HEMOGLOBIN Negative Normal NEGATIVE [facility] Comment on above: Performed By: #### R TOXR, UMAC, UMIC #### [place] [address] URINE KETONE Negative Normal NEGATIVE [facility] Comment on above: Performed By: #### R TOXR, UMAC, UMIC #### [place] [address] URINE LEUKOTEST SMALL Abnormal NEGATIVE [facility] Comment on above: Result Comment: Test ing performed at [place] [address] Performed By: #### R TOXR, UMAC, UMIC #### [place] [address] URINE NITRATES Negative Normal NEGATIVE [facility] Comment on above: Performed By: #### R TOXR, UMAC, UMIC #### [place] [address] URINE SPEC GRAVITY 1.015 Normal 1.010-1.025 [facility] Comment on above: Performed By: #### R TOXR, UMAC, UMIC #### [place] [address] URINE TOTAL PROTEIN Negative Normal NEGATIVE [facility] Comment on above: Performed By: #### R TOXR, UMAC, UMIC #### [place] [address] Urobilinogen Qn (U) 0.2 {Ita'U}/dL Normal 0.2-1.0 [facility] Comment on above: Performed By: #### R TOXR, UMAC, UMIC #### [place] [address] URINE MICROSCOPICon 11-25-19 21 Bacteria LM.HPF (Urine sed) [#/Area] Negative Normal NEGATIVE [facility] Comment on above: Performed By: #### R TOXR, UMAC, UMIC #### [place] [address] CASTS NONE Normal NONE [facility] Comment on above: Performed By: #### R TOXR, UMAC, UMIC #### [place] [address] CRYSTAL NONE Normal NONE [facility] Comment on above: Performed By: #### R TOXR, UMAC, UMIC #### [place] [address] Epithelial cells LM Ql (Urine sed) 1 TO 5 Normal [facility] Comment on above: Performed By: #### R TOXR, UMAC, UMIC #### [place] [address] Mucus Ql (Urine sed) Negative Normal NEGATIVE [facility] Comment on above: Performed By: #### R TOXR, UMAC, UMIC #### [place] [address] URINE COMMENT REFLEX CULTURE PER ESTABLISHED CRITERIA. Normal [facility] Comment on above: Result Comment: Test ing performed at [place] [address] Performed By: #### R TOXR, UMAC, UMIC #### [place] [address] URINE RBC'S Negative Normal NEGATIVE [facility] Comment on above: Performed By: #### R TOXR, UMAC, UMIC #### Testing performed at [facility] [address] [place] [id number] URINE WBC'S 1 TO 5 Normal NEGATIVE [facility] Comment on above: Performed By: #### R TOXR, UMAC, UMIC #### Testing performed at [place] [id number] CBC, EDIF, PLATELETon 2020 ABSOLUTE BASOPHIL COUNT 0.0 10*3/uL 0.0 - 0.2 10*3/uL [facility] Comment on above: Testing performed at [place] [address] Basophils/100 WBC (Bld) 0.4 % 0.0 - 2.0 % [facility] Differential cell count method Nom (Bld) AUTO DIFF % [facility] Eosinophils (Bld) [#/Vol] 0.10 10*3/uL 0.0 - 0.7 10*3/uL [facility] Eosinophils/100 WBC (Bld) 0.9 % 0.0 - 11.0 % [facility] Erythrocyte distribution width (RBC) [Ratio] 13.4 % 11.5 - 14.5 % [facility] Hematocrit (Bld) [Volume fraction] 34.4 % Low 36.0 - 48.0 % [facility] Hemoglobin (Bld) [Mass/Vol] 11.9 g/dL Low [facility] Interpretation and review of laboratory results Abnormal [facility] Lymphocytes (Bld) [#/Vol] 2.20 10*3/uL 1.2 - 3.4 10*3/uL [facility] Lymphocytes/100 WBC (Bld) 20.3 % 20.0 - 55.0 % [facility] MCH (RBC) [Entitic mass] 30.2 pg 26.0 - 35.0 PG [facility] MCHC (RBC) [Mass/Vol] 34.7 g/dL [facility] MCV (RBC) [Entitic vol] 87.1 fL [facility] Monocytes (Bld) [#/Vol] 0.7 10*3/uL 0.0 - 0.7 10*3/uL [facility] Monocytes/100 WBC (Bld) 6.5 % 0.0 - 10.0 % [facility] Neutrophils (Bld) [#/Vol] 7.7 10*3/uL High 1.4 - 6.5 10*3/uL [facility] Neutrophils/100 WBC (Bld) 71.9 % 37.0 - 75.0 % [facility] Platelet mean volume (Bld) [Entitic vol] 9.3 fL [facility] Platelets (Bld) [#/Vol] 176 10*3/uL 130.0 - 400.0 10*3/uL [facility] RBC (Bld) [#/Vol] 3.95 10*6/uL Low 4.0 - 5.4 10*6/uL [facility] WBC (Bld) [#/Vol] 10.8 10*3/uL 3.6 - 11.0 10*3/uL [facility] COMPREHENSIVE METABOLIC PANE Charles 11-24-2020 Albumin [Mass/Vol] 3.4 G/dl Low 3.5 - 5.0 G/dl [facility] Albumin/Globulin [Mass ratio] 1.2 {ratio} Low [facility] ALP [Catalytic activity/Vol] 64 U/L [facility] ALT [Catalytic activity/Vol] 30 U/L <35 IU/L [facility] AST [Catalytic activity/Vol] 35 U/L [facility] Bilirubin [Mass/Vol] 0.2 mg/dL [facility] Calcium [Mass/Vol] 9.0 mg/dL [facility] Chloride [Moles/Vol] 103 mmol/L [facility] Comment on above: Please note: Triglyc eride levels of 600mg/dL or higher may positively bias chloride results by approximately 2.1 mmol CO2 [Moles/Vol] 24 mmol/L [facility] Creatinine [Mass/Vol] 0.50 mg/dL Low [facility] GFR/1.73 sq M predicted among blacks MDRD (S/P/Bld) [Vol rate/Area] mL/min/{1.73_m2} ml/min/1.73s q.m [facility] GFR/1.73 sq M predicted among non-blacks MDRD (S/P/Bld) [Vol rate/Area] mL/min/{1.73_m2} ml/min/1.73s q.m [employer] GFR/1.73 sq M predicted among non-blacks MDRD (S/P/Bld) [Vol rate/Area] Average GFR for 20-29 years old = 116. [facility] Comment on above: Chronic Kidney disea se, GFR = <60. Kidney failure, GFR = <15. The GFR estimate is not adjusted for extreme body surface area or acute process, nor has it been validated for women or ethnic groups other than and . Testing performed at [place], [place] [address] Glucose post fast [Mass/Vol] 90 mg/dL [facility] Comment on above: NORMAL <100 mg/dL PREDIABETES 101-126 mg/dL DIABETES 126 mg/dL or higher Interpretation and review of laboratory results Abnormal [facility] Potassium [Moles/Vol] 3.2 mmol/L Low [employer] Protein [Mass/Vol] 6.2 g/dL Low [employer] Sodium [Moles/Vol] 131 mmol/L Low [facility] Urea nitrogen [Mass/Vol] 8 mg/dL [employer] CT HEAD WITHOUT CONTRASTon 0 11-24-2020 IMPRESSION: 1. No ac [place] intracranial abnormality. 2. Minimal sinusitis. [employer] User, Interfaces - 11/24/2020 11:[address] BRAIN WITHOUT CONTRAST HISTORY: Headache, vision changes, 6 months . COMPARISON: None available. TECHNIQUE: Helical CT images were acquired from the skull base to the vertex without the use of intravenous contrast. Dose reduction techniques were achieved by using automated exposure control and/or adjustment of mA and/or kV according to patient size and/or use of iterative reconstruction technique. FINDINGS: BRAIN PARENCHYMA/CSF SPACES: Ventricles are normal in size for age. There is no hemorrhage, mass effect or midline shift. There are no other significant findings. PARANASAL SINUSES: Minimal partial opacification of the right ethmoid air cells and left ethmoid air cells consistent with chronic sinusitis. SKULL BASE AND CALVARIUM: Normal. EXTRACRANIAL SOFT TISSUES: Normal. IMPRESSION IMPRESSION: 1. No acute intracranial abnormality. 2. Minimal sinusitis. Ecelles Carson CT BRAIN WITHOUT CON TRAST HISTORY: Headache, vision changes, 6 months . COMPARISON: None available. TECHNIQUE: Helical CT images were acquired from the skull base to the vertex without the use of intravenous contrast. Dose reduction techniques were achieved by using automated exposure control and/or adjustment of mA and/or kV according to patient size and/or use of iterative reconstruction technique. FINDINGS: BRAIN PARENCHYMA/CSF SPACES: Ventricles are normal in size for age. There is no hemorrhage, mass effect or midline shift. There are no other significant findings. PARANASAL SINUSES: Minimal partial opacification of the right ethmoid air cells and left ethmoid air cells consistent with chronic sinusitis. SKULL BASE AND CALVARIUM: Normal. EXTRACRANIAL SOFT TISSUES: Normal. [facility] GLUCOSE (POC DEVICE)on 11-24 Glucose [Mass/Vol] 105 mg/dL High [facility] Interpretation and review of laboratory results Abnormal [facility] [employer] [id number] [facility] Otheron 11-24-2020 [facility] POCT GLUCOSEon 11-24-2020 Glucose [Mass/Vol] 105 mg/dL High 70-100 [facility] [employer] [phone] Normal [facility] URINALYSIS, MACROon 11-24-19 21 Bilirubin Ql (U) Negative NEGATIVE [facility] Clarity (U) CLEAR CLEAR [facility] Color (U) YELLOW YELLOW [facility] Glucose Test strip (U) [Mass/Vol] Negative NEGATIVE mg/dl [facility] Hemoglobin Ql (U) Negative NEGATIVE [facility] Interpretation and review of laboratory results Abnormal [facility] Ketones (U) [Mass/Vol] Negative NEGAT DUNIA mg/dl [facility] Leukocyte esterase Test strip Ql (U) SMALL Abnormal NEGATIVE [facility] Comment on above: Testing performed at [place], [place] [address] Nitrite Ql (U) Negative NEGATIVE [facility] pH (U) 7.0 [pH] [facility] Protein Ql (U) Negative NEGATIVE mg/dl [facility] Specific gravity (U) [Rel density] 1.015 [facility] Urobilinogen (U) [Mass/Vol] 0.2 [facility] URINE CULTUREon 11-24-2020 Bacteria identified Cx Nom (U) SPECIMEN DESCRIPTION RANDOM URINE UA DIPSTICK NITRITE NEGATIVE * Result Note: LEUKOCYTE POSITIVE * CULTURE NO GROWTH 2 DAYS * Result Note: Testing performed at [place] [address] * REPORT STATUS 11/26/2020 * Result Note: FINAL * Normal [facility] Comment on above: Performed By: #### R TOXR, UMAC, UMIC #### Testing performed at [facility] [address] [place] [address] URINE MICROSCOPICon 11-24-19 21 Bacteria LM.HPF (Urine sed) [#/Area] Negative NEGATIVE [facility] Casts LM.LPF (Urine sed) [#/Area] NONE NONE /LPF [facility] Crystals LM Nom (Urine sed) NONE NONE [facility] Epithelial cells LM Ql (Urine sed) 1 TO 5 /HPF [facility] Mucus Ql (Urine sed) Negative NEGATIVE [facility] RBC LM.HPF (Urine sed) [#/Area] Negative NEGATIVE /HPF [facility] Urine sediment comments LM Linus (Urine sed) REFLEX CULTURE PER ESTABLISHED CRITERIA. [facility] Comment on above: Testing performed at [place] [address] WBC LM.HPF (Urine sed) [#/Area] 1 TO 5 NEGATIVE /HPF [facility] US OB ANATOMYon 10-24-2020 : 1. Single live IUP in Breech position. 2. Normal Anatomy seen. 3. PRANAY by US - 02/18/2021, which is consistent with gestational age. [facility] 20 WEEK OB ULTRASOUN D PROCEDURE REFERRING PHYSICIAN: Dr. Madera TECHNOLOGIST: Dorina Felipe PROCEDURE PERFORMED BY: Dorina Felipe RDMS PROCEDURE DATE: 10/24/2020 INDICATIONS: Routine 20 Week PROCEDURE DETAILS: Routine 20 week ultrasound performed. No abnormalities seen. Normal visualization of brain, spine, lip, 4 ch heart, outflow tracts, stomach, kidneys, bladder, cord insertion and 3 vessel cord. Placenta is Anterior with no previa noted. Normal fluid amount noted. FINAL [facility] NOVEL CORONAVIRUSon 09-02-20 20 NARRATIVE This test was perfor med using isothermal JIMMY and has been approved as Emergency Use Authorization (EUA) for the qualitative detection [id number] nucleic acid. Normal [facility] Comment on above: Result Comment: Test ing performed at [place] [address] Performed By: #### R TOXR, UMAC, UMIC #### Testing performed at [facility] [address] [place] [address] SARS-CoV-2 (COVID-19) RNA JIMMY+probe Ql (Unsp spec) Not detected Normal NOT DETECTED [facility] Comment on above: Result Comment: Nega tive results do not preclude SARS-CoV-2 infection and should not be used as the sole basis for treatment or other patient management decisions. [employer] specimen types and timing for peak viral levels during infections caused by SARS-CoV-2 has not been determined. The possibility of a false negative result should especially be considered if the patient's recent exposures or clinical presentation suggest that SARS-CoV-2 infection is probable, and diagnostic tests for other causes of illness (e.g., other respiratory illness) are negative. Collection of a new specimen and re-testing may be necessary if the patient is critically ill or clinically deteriorating. Performed By: #### R TOXR, UMAC, UMIC #### Testing performed at [place] [id number] US OB DATING ABDOMINAL < 14W EEKSon 06-30-2020 : 1. Single live pre gnancy of 6 weeks and 4 days. 2. heart rate of 122 bpm. 3.US PRANAY 02/19/2021, which is inconsistent with PRANAY by LMP and should be changed. [facility] REFERRING PHYSICIAN: Dr. Madera TECHNOLOGIST: Dorina Felipe PROCEDURE DATE : 06/30/2020 INDICATIONS: Early gestational, dating LMP 04/15/2020, PRANAY 01/20/2021 PROCEDURE DETAILS A single live was noted within the uterus. heart rate of 122 bpm. The CRL measures .65 cm , 6 weeks 4 days. FINAL [facility] ABO/RH(D) TYPINGon 0 ABO and Rh group Nom (Bld ) Testing performed at [place] [address] [employer] [facility] [email or web address] ABO and Rh group Nom (Bld ) Positive [employer] ANTIBODY SCREENon 06-24-2020 Blood group antibody screen Ql Negative [facility] EXPIRATION DATE 06/27/2020,2359 [facility] [employer] EXPIRATION DATE Testing performed at [place] [id number] [facility] CBC, EDIF, PLATELETon 2019 ABSOLUTE BASOPHIL COUNT 0.0 10*3/uL 0 - 0.2 10*3/uL [facility] Comment on above: Testing performed at [facility], [place], [place] [address] Basophils/100 WBC (Bld) 0.5 % 0 - 2 % [facility] Differential cell count method Nom (Bld) AUTO DIFF % [facility] Eosinophils (Bld) [#/Vol] 0.20 10*3/uL 0 - 0.7 10*3/uL [facility] Eosinophils/100 WBC (Bld) 2.9 % 0 - 11 % [facility] Erythrocyte distribution width (RBC) [Ratio] 12.6 % 11.5 - 14.5 % [facility] Hematocrit (Bld) [Volume fraction] 42.0 % 36 - 48 % [facility] Hemoglobin (Bld) [Mass/Vol] 14.1 g/dL [facility] Lymphocytes (Bld) [#/Vol] 1.60 10*3/uL 1.2 - 3.4 10*3/uL [facility] Lymphocytes/100 WBC (Bld) 22.8 % 20 - 55 % [facility] MCH (RBC) [Entitic mass] 28.8 pg 26 - 35 PG [facility] MCHC (RBC) [Mass/Vol] 33.5 g/dL [facility] MCV (RBC) [Entitic vol] 85.9 fL [facility] Monocytes (Bld) [#/Vol] 0.4 10*3/uL 0 - 0.7 10*3/uL [facility] Monocytes/100 WBC (Bld) 5.6 % 0 - 10 % [facility] Neutrophils (Bld) [#/Vol] 4.8 10*3/uL 1.4 - 6.5 10*3/uL [facility] Neutrophils/100 WBC (Bld) 68.2 % 37 - 75 % [facility] Platelet mean volume (Bld) [Entitic vol] 8.9 fL [facility] Platelets (Bld) [#/Vol] 229 10*3/uL 130 - 400 10*3/uL [facility] RBC (Bld) [#/Vol] 4.88 10*6/uL 4 - 5.4 10*6/uL [facility] WBC (Bld) [#/Vol] 7.1 10*3/uL 3.6 - 11 10*3/uL [facility] TOXICOLOGY DRUG SCREEN, URIN Jonh 06-24-2020 Amphetamine (U) [Mass/Vol] Negative NEGATIVE NG/ML [facility] Comment on above: <500 ng/ml CUTOFF Barbiturates Screen Ql (U) Negative NEGATIVE NG/ML [facility] Comment on above: <200 ng/ml CUTOFF Benzodiazepines Ql (U) Negative NEGAT DUNIA NG/ML [facility] Comment on above: <150 ng/ml CUTOFF Benzoylecgonine Ql (U) Negative NEGAT DUNIA NG/ML [facility] Comment on above: <150 ng/ml CUTOFF Buprenorphine Ql (U) Negative NEGATIV E NG/ML [facility] Comment on above: <10 ng/ml CUTOFF Testing performed at [place], [place] [address] Cannabinoids Screen Ql (U) Negative NEGATIVE NG/ML [facility] Comment on above: <50 ng/ml CUTOFF Methadone Screen Ql (U) Negative NEGATIVE NG/ML [facility] Comment on above: <200 ng/ml CUTOFF Methamphetamine (U) [Mass/Vol] Negative NEGATIVE NG/ML [facility] Comment on above: <500 ng/ml CUTOFF Opiates Screen Ql (U) Negative NEGATI VE NG/ML [facility] Comment on above: <100 ng/ml CUTOFF Oxycodone Ql (U) Negative NEGATIVE NG/ML [facility] Comment on above: <100 ng/ml CUTOFF Phencyclidine Screen method >25 ng/mL Ql (U) Negative NEGATIVE NG/ML [facility] Comment on above: <25 ng/ml CUTOFF Propoxyphene + Norpropoxyphene Screen Ql (U) Negative NEGATIVE NG/ML [facility] Comment on above: <300 ng/ml CUTOFF Tricyclic antidepressants Screen Ql (U) Negative NEGATIVE NG/ML [facility] Comment on above: <300 ng/ml CUTOFF POCT URINE PREGNANCYon 06-14 HCG.beta subunit Qn Positive [facility] Interpretation and review of laboratory results Normal [facility] HCG QUALITATIVE, URINEon HCG ( test) Ql (U) Negative [facility] Comment on above: Testing performed at [place] [address] NOVEL CORONAVIRUS LAB 1 - NA MARY ANNEARYNGEALon 04-28-2020 NARRATIVE -1 This test was perfor med using real time PCR and has been approved as Emergency Use Authorization (EUA) for the qualitative detection of SARS-CoV-2 nucleic acid. [facility] Comment on above: Testing performed at [place] [address] SARS COV 2 RNA, QL REAL TIME RT PCR NOT DETECTED NOT DETECTED [facility] Comment on above: Negative results do not preclude SARS-CoV-2 infection and should not be used as the sole basis for treatment or other patient management decisions. Optimum specimen types and timing for peak viral levels during infections caused by SARS-CoV-2 has not been determined. The possibility of a false negative result should especially be considered if the patient's recent exposures or clinical presentation suggest that SARS-CoV-2 infection is probable, and diagnostic tests for other causes of illness (e.g., other respiratory illness) are negative. Collection of a new specimen and re-testing may be necessary if the patient is critically ill or clinically deteriorating. MEASLES,MUMP,RUBELLAon 09-11 MUMPS ABS, IGG 256.0 AU/mL Normal Immune >10.9 [facility] Comment on above: Result Comment: (NOT E) Negative <9.0 Equivocal 9.0 - 10.9 Positive >10.9 A positive result generally indicates past exposure to Mumps virus or previous vaccination. PERFORMED AT [facility] Performed By: #### L MMR #### Testing performed at [facility] [address] [place] [address] [place] [address] RUBEOLA AB, IGG >300.0 Normal Immune >16.4 [facility] Comment on above: Result Comment: (NOT E) Negative <13.5 Equivocal 13.5 - 16.4 Positive >16.4 Presence of antibodies to Rubeola is presumptive evidence of immunity except when acute infection is suspected. Performed By: #### L MMR #### Testing performed at [facility] [address] [facility] [place] [address] RUBELLA AB, IGG 5.50 index Normal Immune >0.99 [facility] Comment on above: Result Comment: (NOT E) Non-immune <0.90 Equivocal 0.90 - 0.99 Immune >0.99 Performed By: #### L MMR #### Testing performed at [address] [address] FAX REQUESTon 09-09-2019 FAX TO [facility] Comment on above: Performed By: #### L MMR #### Testing performed at [address] [address] HEP B SURFACE ABon 9 HEP B SURFACE AB Negative Abnormal POSITIVE [facility] Comment on above: Result Comment: Clinical Interpretation of Immune Status Negative: patient is considered to be not immune to infection with HBV Intermediate: unable to determine if anti-HBs is present at levels consistent with immunity Positive: anti-HBs detected, patient is considered to be immune to infection with HBV Performed By: #### L MMR #### Testing performed at [address] [address] HEP C ABon 09-09-2019 HEP C AB Negative Normal NEGATIVE [facility] Comment on above: Performed By: #### L MMR #### Testing performed at [address] [address] O & P Exam, Routineon 2018 Ova/Para Exam Rt Final report Normal [facility] Comment on above: Order Comment: Order Added by Discern Expert. Result Comment: Thes e results were obtained using wet preparation(s) and trichrome stained smear. This test does not include testing for Cryptosporidium parvum, Cyclospora, or Microsporidia. No ova, cysts, or parasites seen. One negative specimen does not rule out the possibility of a parasitic infection. Performed At: [facility] [address] [place], [place] [id number] Corby Caballero PhD Ph:[phone] Performed By: #### 2 [id number] #### TAMARA [facility] [place] [address] CHARLES Teston 12-22-2018 CHARLES Test Negative Normal Negative [facility] Comment on above: Result Comment: spec imen found in surgery bucket 12/22/2018 14:07:47 EDT; never brought to lab Performed By: #### 2 [id number] #### TAMARA RemHemo [address] [place] [address] GI Panelon 12-19-2018 Adenovirus F40/41 Not Detected Normal [facility] Comment on above: Order Comment: Order Added by Discern Expert. Performed By: #### 2 [id number] #### TAMARA RemHemo [address] [place] [id number] Astrovirus Not Detected Normal [facility] Comment on above: Order Comment: Order Added by Discern Expert. Performed By: #### 2 [id number] #### TAMARA RemHemo [address] [place] [id number] Campylobacter Not Detected Normal [facility] Comment on above: Order Comment: Order Added by Molly Expert. Performed By: #### 2 [id number] #### TAMARA RemHemo [address] [place] [address] Cholesterol mass conc Not Detected Normal [facility] Comment on above: Order Comment: Order Added by Discern Expert. Performed By: #### 2 820333 #### TAMARA RemHemo [address] [place] [id number] Clostridium difficile toxin A/B Not Detected Normal [facility] Comment on above: Order Comment: Order Added by Discern Expert. Performed By: #### 2 [id number] #### TAMARA RemHemo [address] [place] [id number] Cryptosporidium Not Detected Normal [facility] Comment on above: Order Comment: Order Added by Molly Expert. Performed By: #### 2 670324 #### TAMARA RemHemo [address] [place] [phone] Cyclospora cayetanensis Not Detected Normal [facility] Comment on above: Order Comment: Order Added by Molly Expert. Performed By: #### 2 476995 #### TAMARA RemHemo [address] [place] [id number] E coli 0157 Not Detected Normal [facility] Comment on above: Order Comment: Order Added by Molly Expert. Performed By: #### 2 697599 #### TAMARA RemHemo [address] [place] [id number] Entamoeba histolytica Not Detected Normal [facility] Comment on above: Order Comment: Order Added by Discern Expert. Performed By: #### 2 [id number] #### TAMARA RemHemo [address] [place] [phone] Enteroaggregatvie E coli (EAEC) Not Detected Normal [facility] Comment on above: Order Comment: Order Added by Discern Expert. Performed By: #### 2 795987 #### TAMARA RemHemo [address] [place] [phone] Enteropathogenic E Coli (EPEC) Not Detected Normal [facility] Comment on above: Order Comment: Order Added by Discern Expert. Performed By: #### 2 559581 #### TAMARA RemHemo [address] [place] [phone] Enterotoxigenci E coli (ETEC)lt/st Not Detected [facility] Comment on above: Order Comment: Order Added by Discern Expert. Performed By: #### 2 911346 #### TAMARA RemHemo [address] [place] [address] Giardia lamblia Not Detected Normal [facility] Comment on above: Order Comment: Order Added by Discern Expert. Performed By: #### 2 [id number] #### TAMARA RemHemo [address] [place] [phone] Norovirus GI/GII Not Detected Normal [facility] Comment on above: Order Comment: Order Added by Discern Expert. Performed By: #### 2 500138 #### TAMARA RemHemo [address] [place] [phone] Plesiomonas shigelloides Not Detected Normal [facility] Comment on above: Order Comment: Order Added by Discern Expert. Performed By: #### 2 387142 #### TAMARA RemHemo [address] [place] [address] Protein mass conc Not Detected Normal [facility] Comment on above: Order Comment: Order Added by Discern Expert. Performed By: #### 2 014104 #### TAMARA RemHemo [address] [place] [address] Rotavirus A Not Detected [facility] Comment on above: Order Comment: Order Added by Discern Expert. Result Comment: The performance of the [employer] GI Panel has not been established in individuals who received Rotavirus A vaccine. Recent oral administration of a Rotavirus A vaccine may cause positive results for Rotavirus A if the virus is passed in the stool. Note: A negative [facility] GI Panel does not exclude the possibility of gastrointestinal infection. Performed By: #### 2 [id number] #### TAMARA RemHemo [address] [place] [phone] Salmonella Not Detected Normal [facility] Comment on above: Order Comment: Order Added by Discern Expert. Performed By: #### 2 580200 #### TAMARA RemHemo [address] [place] [phone] Sapovirus Not Detected Normal [facility] Comment on above: Order Comment: Order Added by Discern Expert. Performed By: #### 2 504982 #### TAMARA RemHemo [address] [place] [phone] Shigella/Enteroinvasiv e E coli (EIEC) Not Detected Normal [facility] Comment on above: Order Comment: Order Added by Discern Expert. Performed By: #### 2 500298 #### TAMARA RemHemo [address] [place] [phone] Vibrio Not Detected Normal [facility] Comment on above: Order Comment: Order Added by Discern Expert. Performed By: #### 2 329164 #### TAMARA RemHemo [address] [place] [phone] Yersinia enterocolitica Not Detected Normal [facility] Comment on above: Order Comment: Order Added by Discern Expert. Performed By: #### 2 692515 #### TAMARA RemHemo [address] [place] [phone] XR Upper GI w/ Air Contrast + KUBon 12-17-2018 XR Upper GI w/ Air Contrast + KUB Exam Date/Time: 12/17/2018 09:43 EDT Reason for Exam: Other (please specify) Report STUDY: Double-contrast upper GI series with small-bowel follow-through dated 12/17/2018. INDICATION: Pain. COMPARISON: None. ACCESSION NUMBER(S): [id number] ORDERING CLINICIAN: Love Barnhart TECHNIQUE: Panel Edge Painter radiograph of the abdomen was obtained. Patient was then given effervescent granules to consume. The patient was then asked to drink liquid barium solution while the esophagus stomach and duodenal sweep were assessed under active fluoroscopy. FINDINGS: The visualized lungs are clear. There is a nonspecific nonobstructive bowel gas pattern. Contrast readily passes down the esophagus into the stomach. The esophageal mucosa is unremarkable. The gastric mucosa is unremarkable. The duodenal bulb was grossly unremarkable. The duodenal sweep has a normal anatomic lie. IMPRESSION: Unremarkable upper GI series without evidence of focal mucosal abnormality, mass or stricture. Of note, the patient noted significant immediate discomfort upon ingestion of the gas producing crystals which resolved upon ingestion of the barium. While nonspecific, this can be seen with esophagitis and clinical correlation is recommended. FINAL REPORT Dictated: 12/17/2018 10:56 am Krystian Lepe MD Signed (Electronic Signature): 12/17/2018 10:56 am Signed by: Krystian Lepe MD Technologist: TRD Normal [facility] Amylaseon 12-16-2018 Amylase enzyme act/vol 51 Int._Unit/L Normal 29-103 [facility] Comment on above: Performed By: #### 2 [id number] #### TAMARA [employer] [address] [place] [address] Auto Diffon 12-16-2018 Basophils #/vol (Bld) 0.0 E3/mcL Normal 0.0-0.2 [facility] Comment on above: Order Comment: Order Added by Discern Expert. Performed By: #### 2 [id number] #### TAMARA RemHemo [address] [place] [address] Basophils/100 WBC (Bld) 0.6 % Normal 0.0-2.0 [facility] Comment on above: Order Comment: Order Added by Discern Expert. Performed By: #### 2 242363 #### TAMARA RemHemo [address] [place] [address] Eos Absolute 0.1 E3/mcL Normal 0.0-0.7 [facility] Comment on above: Order Comment: Order Added by Discern Expert. Performed By: #### 2 621768 #### TAMARA RemHemo [address] [place] [address] Eosinophils/100 WBC (Bld) 0.9 % Normal 0.0-11.0 [facility] Comment on above: Order Comment: Order Added by Discern Expert. Performed By: #### 2 545164 #### TAMARA RemHemo [address] [place] [address] Lymphocytes #/vol (Bld) 1.7 E3/mcL Normal 1.2-3.4 [facility] Comment on above: Order Comment: Order Added by Discern Expert. Performed By: #### 2 443914 #### TAMARA MorochoHemo [facility] [place] [address] Lymphocytes/100 WBC (Bld) 28.5 % Normal 20.0-55.0 [facility] Comment on above: Order Comment: Order Added by Discern Expert. Performed By: #### 2 173277 #### TAMARA MorochoHemo [address] [place] [address] Charlton Absolute 0.4 E3/mcL Normal 0.0-0.7 [facility] Comment on above: Order Comment: Order Added by Molly Expert. Performed By: #### 2 193227 #### TAMARA MorochoHemo [address] [place] [address] Monocytes/100 WBC (Bld) 6.6 % Normal 0.0-10.0 [facility] Comment on above: Order Comment: Order Added by Discern Expert. Performed By: #### 2 550280 #### TAMARA MorochoHemo [address] [place] [address] Neutro Absolute 3.8 E3/mcL Normal 1.4-6.5 [facility] Comment on above: Order Comment: Order Added by Discern Expert. Performed By: #### 2 589207 #### TAMARA RemHemo [facility] [place] [address] Neutro Auto 63.4 % Normal 37.0-75.0 [facility] Comment on above: Order Comment: Order Added by Molly Expert. Performed By: #### 2 182854 #### TAMARA RemHemo [address] [place] [address] BMPon 12-16-2018 Anion gap molar conc 13 mmol/L Normal 10-20 [facility] Comment on above: Performed By: #### 2 923075 #### TAMARA [employer] [address] [place] [address] Calcium mass conc 9.3 mg/dL Normal 8.6-10.3 [facility] Comment on above: Performed By: #### 2 534211 #### TAMARA [employer] [address] [place] [address] Chloride molar conc 105 mmol/L Normal 98-107 [facility] Comment on above: Performed By: #### 2 023747 #### TAMARA [employer] [address] [place] [address] CO2 molar conc 23.0 mmol/L Normal 21.0-32.0 [facility] Comment on above: Performed By: #### 2 [id number] #### [facility] [employer] [address] [place] [address] Creatinine mass conc 0.8 mg/dL Normal 0.5-1.1 [facility] Comment on above: Performed By: #### 2 867906 #### [facility] [employer] [address] [place] [address] Glucose mass conc 66 mg/dL Low 70-99 [facility] Comment on above: Performed By: #### 2 489075 #### [facility] [employer] [address] [place] [address] Potassium molar conc 3.8 mmol/L Normal 3.5-5.3 [facility] Comment on above: Performed By: #### 2 258328 #### TAMARA [employer] [address] [place] [address] Sodium molar conc 138 mmol/L Normal 136-145 [facility] Comment on above: Performed By: #### 2 438498 #### TAMARA [employer] [address] [place] [address] Urea nitrogen mass conc 11 mg/dL Normal 6-23 [facility] Comment on above: Performed By: #### 2 299661 #### TAMARA [employer] [address] [place] [address] Urea nitrogen/Creatinine mass ratio 13.8 ratio Normal 5.4-30.0 [facility] Comment on above: Performed By: #### 2 259212 #### TAMARA [employer] [address] [place] [address] CBC w/ Auto Diffon 9 Erythrocyte distribution width Ratio (RBC) 12.5 % Normal 11.5-14.5 [facility] Comment on above: Performed By: #### 2 159229 #### TAMARA MorochoHemo [facility] [place] [phone] Hematocrit Volume Fraction (Bld) 42.1 % Normal 36.0-48.0 [facility] Comment on above: Performed By: #### 2 716357 #### TAMARA MorochoHemo [address] [place] [phone] Hemoglobin mass conc (Bld) 14.2 g/dL Normal 12.0-16.0 [facility] Comment on above: Performed By: #### 2 073406 #### TAMARA MorochoHemo [address] [place], [place] [id number] MCH Entitic mass (RBC) 29.7 pg Normal 27.0-31.0 [facility] Comment on above: Performed By: #### 2 363749 #### TAMARA MorochoHemo [address] [place], [place] [phone] MCHC mass conc (RBC) 33.7 g/dL Normal 33.0-37.0 [facility] Comment on above: Performed By: #### 2 397464 #### TAMARA MorochoHemo [address] [place], [place] [phone] MCV Entitic volume (RBC) 88.2 fL Normal 78.0-100.0 [facility] Comment on above: Performed By: #### 2 078270 #### TAMARA MorochoHemo [facility] [place] [phone] Platelet mean volume Entitic volume (Bld) 9.1 fL Normal 7.4-11.0 [facility] Comment on above: Performed By: #### 2 670860 #### TAMARA RemHemo [address] [place] [address] Platelets #/vol (Bld) 200 E3/mcL Normal 130-400 [facility] Comment on above: Performed By: #### 2 692330 #### TAMARA RemHemo [address] [place] [address] RBC #/vol (Bld) 4.77 E6/mcL Normal 3.90-5.40 [facility] Comment on above: Performed By: #### 2 893790 #### TAMARA RemHemo [address] [place] [address] WBC #/vol (Bld) 6.0 E3/mcL Normal 3.6-11.0 [facility] Comment on above: Performed By: #### 2 274937 #### TAMARA RemHemo [address] [place] [id number] CRPon 12-16-2018 CRP mass conc 1.06 mg/dL High 0.00-1.00 [facility] Comment on above: Performed By: #### 2 910886 #### TAMARA [employer] [address] [place] [id number] CT Abdomen/Pelvis w/ Contras ton 12-16-2018 CT Abdomen/Pelvis w/ Contrast Exam Date/Time: 12/16/2018 16:14 EDT Reason for Exam: Abdominal Pain;Other (please specify) Report STUDY: CT Abdomen/Pelvis w/ Contrast; 12/16/2018 4:14 pm INDICATION: Other (please specify). Epigastric pain for 6 days. Pain when swallowing. Recent international travel. COMPARISON: None. ACCESSION NUMBER(S): [id number] ORDERING CLINICIAN: Grant Qureshi TECHNIQUE: Contiguous axial images were obtained through the abdomen and pelvis after the administration of 81 mL Omnipaque 350 intravenous contrast. Coronal and sagittal reformations were made. FINDINGS: LOWER CHEST: Lung bases are clear. ABDOMEN: LIVER: Subcentimeter low-attenuation lesion anteriorly within the right hepatic lobe is too small to characterize, most likely a tiny cyst. BILE DUCTS: Nondilated. GALLBLADDER: The gallbladder is not distended and without calcified stones. PANCREAS: Within normal limits. No peripancreatic inflammation. SPLEEN: Spleen is not enlarged. No discrete splenic lesion ADRENAL GLANDS: Within normal limits. KIDNEYS AND URETERS: The kidneys enhance symmetrically without focal lesion. No hydroureteronephrosis bilaterally. Exam Date/Time: 12/16/2018 16:14 EDT Report Urinary bladder is minimally distended. VESSELS: There is no aneurysmal dilatation of the abdominal aorta. The IVC is within normal limits. BOWEL: There is no bowel obstruction or appreciable bowel wall thickening. Appendix is normal. No focal diverticular disease. PERITONEUM/RETROPERITONEUM /LYMPH NODES: Trace intrapelvic free fluid is present. No localized fluid collection. No free intraperitoneal air. Gas attenuation tampon artifact noted at the vagina level. No retroperitoneal fluid collection or lymphadenopathy. ABDOMINAL WALL: Unremarkable. BONE AND SOFT TISSUE: Bones are intact. IMPRESSION: Nonspecific trace intrapelvic free fluid which may be physiologic. No localized fluid collection. Normal appendix. No bowel obstruction. No focal inflammatory process. FINAL REPORT Dictated: 12/16/2018 4:20 pm Sagra Blue MD Signed (Electronic Signature): 12/16/2018 4:20 pm Signed by: Sagar Blue MD Technologist: AM, Normal [facility] Hep Func Panelon 12-16-2018 Albumin mass conc 4.4 g/dL Normal 3.4-5.0 [facility] Comment on above: Performed By: #### 2 [id number] #### [facility] [employer] [address] [place] [address] Albumin/Globulin mass ratio 1.8 {ratio} Normal 1.1-1.9 [facility] Comment on above: Performed By: #### 2 935725 #### [facility] [employer] [address] [place] [address] Alk Phos 40 Int._Unit/L Normal 33-110 [facility] Comment on above: Performed By: #### 2 710094 #### TAMARA [employer] [address] [place] [address] ALT enzyme act/vol 12 Int._Unit/L Normal 7-45 [facility] Comment on above: Performed By: #### 2 711027 #### TAMARA [employer] [address] [place] [address] AST enzyme act/vol 15 Int._Unit/L Normal 9-39 [facility] Comment on above: Performed By: #### 2 066327 #### TAMARA [employer] [address] [place] [address] Bili Direct 0.17 mg/dL Normal 0.00-0.30 [facility] Comment on above: Performed By: #### 2 747270 #### [facility] [employer] [address] [place] [address] Bili Indirect 0.47 mg/dL Normal [facility] Comment on above: Result Comment: No e stablished ranges available for the indirect bilirubin Performed By: #### 2 [id number] #### TAMARA [employer] [address] [place] [address] Bili Total 0.64 mg/dL Normal 0.00-1.20 [facility] Comment on above: Performed By: #### 2 837261 #### TAMARA [employer] [address] [place] [address] Globulin mass conc (S) 3.0 g/dL Normal 2.0-4.0 [facility] Comment on above: Performed By: #### 2 820663 #### TAMARA [employer] [address] [place] [address] Protein mass conc 6.9 g/dL Normal 6.4-8.2 [facility] Comment on above: Performed By: #### 2 880740 #### TAMARA [employer] [address] [place] [address] Lipase Levelon 12-16-2018 Lipase Lvl 21 Int._Unit/L Normal 9-82 [facility] Comment on above: Performed By: #### 2 [id number] #### TAMARA [employer] [address] [place] [address] U BhCG Qlton 12-16-2018 HCG.beta subunit Qn Negative Normal Neg [facility] Comment on above: Performed By: #### 2 [id number] #### TAMARA Urinalysis Manual Subsection [address] [place] [address] UA Completeon 12-16-2018 Color Nom (U) Yellow Normal Yellow [facility] Comment on above: Performed By: #### 8 [id number] #### TAMARA Urinalysis Automated Subsection [address] [place] [address] Glucose mass conc (U) Negative Normal Negative [facility] Comment on above: Performed By: #### 8 [id number] #### TAMARA Urinalysis Automated Subsection [address] [place] [address] Ketones Ql (U) 2+ Abnormal Negative [facility] Comment on above: Performed By: #### 8 [id number] #### TAMARA Urinalysis Automated Subsection [address] [place] [address] RBC #/vol (U) 5-10 Abnormal 0-3 [facility] Comment on above: Performed By: #### 8 [id number] #### TAMARA Urinalysis Automated Subsection [facility] [place] [address] UA Blood 1+ Abnormal Negative [facility] Comment on above: Performed By: #### 8 [id number] #### TAMARA Urinalysis Automated Subsection [address] [place] [address] UA Clarity Clear Normal Clear [facility] Comment on above: Performed By: #### 8 [id number] #### TAMARA Urinalysis Automated Subsection [address] [place], [place] [id number] UA Leuk Est Negative Normal Negative [facility] Comment on above: Performed By: #### 8 [id number] #### TAMARA Urinalysis Automated Subsection [address] [place] [address] UA Mucous Trace Abnormal Trace [facility] Comment on above: Performed By: #### 8 [id number] #### TAMARA Urinalysis Automated Subsection [address] [place] [address] UA Nitrite Negative Normal Negative [facility] Comment on above: Performed By: #### 8 [id number] #### TAMARA Urinalysis Automated Subsection [address] [place] [address] UA pH 5.0 Normal 4.6-8.0 [facility] Comment on above: Performed By: #### 8 [id number] #### TAMARA Urinalysis Automated Subsection [address] [place] [address] UA Protein Negative Normal Negative [facility] Comment on above: Performed By: #### 8 [id number] #### TAMARA Urinalysis Automated Subsection [address] [place] [address] UA Spec Grav 1.024 Normal 1.003-1.030 [facility] Comment on above: Performed By: #### 8 [id number] #### TAMARA Urinalysis Automated Subsection [facility] [place] [address] UA Squam Epithelial 5-10 Abnormal 0-5 [facility] Comment on above: Performed By: #### 8 [id number] #### TAMARA Urinalysis Automated Subsection [address] [place] [address] UA Urobilinogen Negative Normal [facility] Comment on above: Result Comment: Due to a manufacturing issue, low positive urobilinogen results may be fasely positive. Correlate with urine bilirubin and additional clinical/laboratory findings to assess the risk of hemolytic anemia or liver disease. If clinically indicated, repeat testing with an alternate method is available by contacting the laboratory within 24 hours. Performed By: #### 8 [id number] #### TAMARA Urinalysis Automated Subsection [address] [place] [address] Urobilinogen Qn (U) Negative Normal Negative [facility] Comment on above: Performed By: #### 8 [id number] #### TAMARA Urinalysis Automated Subsection [facility] [place] [address] eGFRon 12-16-2018 GFR/1.73 sq M predicted among non-blacks MDRD vol rate/area (S/P/Bld) mL/min/{1.73_m2} Normal [facility] Comment on above: Order Comment: Order added by Discern Expert. Performed By: #### 1 [id number] #### TAMARA [employer] [facility] [place] [address] Beta HCG Quant, EDon 019 Beta HCG Quant, ED <0.6 Normal <5.0 [facility] Comment on above: Result Comment: NEGA TIVE Performed By: #### H CGED #### [facility] [address] [place] [phone] CBC and Differentialon 12-15 Abs Baso 0.03 k/uL Normal <0.11 [facility] Comment on above: Performed By: #### C BCDIF, CMP, LIPA #### [facility] [address] [place] [phone] Abs Charlton 0.49 k/uL Normal <0.87 [facility] Comment on above: Performed By: #### C BCDIF, CMP, LIPA #### [facility] [address] [place] [phone] Abs Neut 4.23 k/uL Normal 1.45-7.50 [facility] Comment on above: Performed By: #### C BCDIF, CMP, LIPA #### [place] [address] [place] [address] Absolute nRBC <0.01 Normal <0.01 [facility] Comment on above: Performed By: #### C BCDIF, CMP, LIPA #### [place] [address] [place] [address] Basophils/100 WBC (Bld) 0.4 % Normal [facility] Comment on above: Performed By: #### C BCDIF, CMP, LIPA #### [place] [address] [place] [phone] DTYPE Auto Diff Normal [facility] Comment on above: Performed By: #### C BCDIF, CMP, LIPA #### [place] [address] [place] [address] Eosinophils #/vol (Bld) 0.09 10*3/uL Normal <0.46 [facility] Comment on above: Performed By: #### C BCDIF, CMP, LIPA #### [place] [address] [place] [address] Eosinophils/100 WBC (Bld) 1.3 % Normal [facility] Comment on above: Performed By: #### C BCDIF, CMP, LIPA #### [place] [address] [place] [address] Erythrocyte distribution width Ratio (RBC) 12.1 % Normal 11.5-15.0 [facility] Comment on above: Performed By: #### C BCDIF, CMP, LIPA #### [place] [address] [place] [address] Hematocrit Volume Fraction (Bld) 37.7 % Normal 36.0-46.0 [facility] Comment on above: Performed By: #### C BCDIF, CMP, LIPA #### [facility] [address] [place], [place] [address] Hemoglobin mass conc (Bld) 13.0 g/dL Normal 11.5-15.5 [facility] Comment on above: Performed By: #### C BCDIF, CMP, LIPA #### [place] [address] Lymphocytes #/vol (Bld) 2.16 10*3/uL Normal 1.00-4.00 [facility] Comment on above: Performed By: #### C BCDIF, CMP, LIPA #### [place] [address] Lymphocytes/100 WBC (Bld) 30.8 % Normal [facility] Comment on above: Performed By: #### C BCDIF, CMP, LIPA #### [place] [address] MCH Entitic mass (RBC) 29.5 pG Normal 26.0-34.0 [facility] Comment on above: Performed By: #### C BCDIF, CMP, LIPA #### [place] [address] MCHC mass conc (RBC) 34.5 g/dL Normal 30.5-36.0 [facility] Comment on above: Performed By: #### C BCDIF, CMP, LIPA #### [place] [address] [place] [address] MCV Entitic volume (RBC) 85.7 fL Normal 80.0-100.0 [facility] Comment on above: Performed By: #### C BCDIF, CMP, LIPA #### [place] [address] [place] [phone] Monocytes/100 WBC (Bld) 7.0 % Normal [facility] Comment on above: Performed By: #### C BCDIF, CMP, LIPA #### [place] [address] [place] [address] Neutrophils/100 WBC (Bld) 60.5 % Normal [facility] Comment on above: Performed By: #### C BCDIF, CMP, LIPA #### [place] [address] [place] [address] NRBCs 0.0 /100 WBC Normal 0 [facility] Comment on above: Performed By: #### C BCDIF, CMP, LIPA #### [place] [phone] Platelet mean volume Entitic volume (Bld) 10.6 fL Normal 9.0-12.7 [facility] Comment on above: Performed By: #### C BCDIF, CMP, LIPA #### [place] [address] Platelets #/vol (Bld) 217 10*3/uL Normal 150-400 [facility] Comment on above: Performed By: #### C BCDIF, CMP, LIPA #### [place] [address] RBC #/vol (Bld) 4.40 10*6/uL Normal 3.90-5.20 [facility] Comment on above: Performed By: #### C BCDIF, CMP, LIPA #### [place] [address] [place] [address] WBC #/vol (Bld) 7.02 10*3/uL Normal 3.70-11.00 [facility] Comment on above: Performed By: #### C BCDIF, CMP, LIPA #### [place] [address] Comp Metabolic Panelon 12-15 Albumin mass conc 4.3 g/dL Normal 3.9-4.9 [facility] Comment on above: Performed By: #### C BCDIF, CMP, LIPA #### [facility] [address] [place] [address] ALP enzyme act/vol 40 U/L Normal 34-123 [facility] Comment on above: Performed By: #### C BCDIF, CMP, LIPA #### [facility] [address] [place] [address] ALT enzyme act/vol 13 U/L Normal 7-38 [facility] Comment on above: Performed By: #### C BCDIF, CMP, LIPA #### [facility] [address] [place] [address] Anion gap molar conc 13 mmol/L Normal 9-18 [facility] Comment on above: Performed By: #### C BCDIF, CMP, LIPA #### [facility] [address] [place] [address] AST enzyme act/vol 15 U/L Normal 13-35 [facility] Comment on above: Performed By: #### C BCDIF, CMP, LIPA #### [facility] [address] [place] [address] Bilirubin mass conc 0.6 mg/dL Normal 0.2-1.3 [facility] Comment on above: Performed By: #### C BCDIF, CMP, LIPA #### [facility] [address] [place] [phone] Calcium mass conc 9.3 mg/dL Normal 8.5-10.2 [facility] Comment on above: Performed By: #### C BCDIF, CMP, LIPA #### [facility] [address] [place] [phone] Chloride molar conc 103 mmol/L Normal 97-105 [facility] Comment on above: Performed By: #### C BCDIF, CMP, LIPA #### [facility] [address] [place] [phone] CO2 molar conc 24 mmol/L Normal 22-30 [facility] Comment on above: Performed By: #### C BCDIF, CMP, LIPA #### [facility] [address] [place] [phone] Creatinine mass conc 0.86 mg/dL Normal 0.58-0.96 [facility] Comment on above: Performed By: #### C BCDIF, CMP, LIPA #### [place] [address] [place] [phone] eGFR- Amer. >60 Normal [facility] Comment on above: Performed By: #### C BCDIF, CMP, LIPA #### [place] [address] [place] [phone] GFR/1.73 sq M predicted among non-blacks MDRD vol rate/area (S/P/Bld) mL/min/{1.73_m2} Normal [facility] Comment on above: Result Comment: eGFR (Estimated GFR) Units of measure: mL/min/1.73 meters squared eGFR is derived from the reexpressed MDRD Study equation using the following parameters: serum creatinine, age, gender and race. The creatinine assay has been calibrated to be traceable to IDMS. An eGFR <60 mL/min/1.73m2 for >3 months is consistent with chronic kidney disease. Refer to KDOQI guidelines for clinical interpretation. In patients with unstable renal function, e.g. those with acute kidney injury, the eGFR may not accurately reflect actual GFR. Performed By: #### C BCDIF, CMP, LIPA #### [facility] [address] [place] [phone] Glucose mass conc 92 mg/dL Normal 74-99 [facility] Comment on above: Result Comment: The [place] [employer] (ADA) provides guidance for cutoff values for fasting glucose and random glucose. The ADA defines fasting as no caloric intake for at least 8 hours. Fasting plasma glucose results between 100 to 125 mg/dL indicate increased risk for diabetes (prediabetes). Fasting plasma glucose results greater than or equal to 126 mg/dL meet the criteria for diagnosis of diabetes. In the absence of unequivocal hyperglycemia, results should be confirmed by repeat testing. In a patient with classic symptoms of hyperglycemia or hyperglycemic crisis, random plasma glucose results greater than or equal to 200 mg/dL meet the criteria for diagnosis of diabetes. Reference: Standards of Medical Care in Diabetes 2016, [place] [employer]. Diabetes Care. 2016.39(Suppl 1). Performed By: #### C BCDIF, CMP, LIPA #### [place] [address] [place] [address] Potassium molar conc 3.5 mmol/L Low 3.7-5.1 [facility] Comment on above: Performed By: #### C BCDIF, CMP, LIPA #### [place] [phone] Protein mass conc 6.9 g/dL Normal 6.3-8.0 [facility] Comment on above: Performed By: #### C BCDIF, CMP, LIPA #### [place] [address] [place] [address] Sodium molar conc 140 mmol/L Normal 136-144 [facility] Comment on above: Performed By: #### C BCDIF, CMP, LIPA #### [place] [address] Urea nitrogen mass conc 7 mg/dL Normal 7-21 [facility] Comment on above: Performed By: #### C BCDIF, CMP, LIPA #### [place] [address] [place] [phone] ED PROV NOTEon 12-15-2018 Protein mass conc HNO ID: [id number] Author: Daniela Walton MD Service: Emergency Medicine Author Type: Physician Type: ED Provider Notes Filed: 12/15/2018 5:01 AM Note Text: ED PROVIDER NOTE Patient Name: Nayeli Sullivan Service Date: December 15, 2018 Histories HISTORY OF PRESENT ILLNESS Chief Complaint - Abdominal pain Patient is a 23-year-old female coming to the emergency department for evaluation of abdominal pain. She reports abdominal pain for the last 4 days, constant in nature, sharp mostly somewhat burning epigastric exacerbated by by mouth intake. Endorses nausea no vomiting, denies change in bowel or bladder, no blood in urine or stool, no lower abdominal pain. No fever, chest pain or shortness of breath. Does endorse taking malaria prophylaxis and then increased doses of doxycycline, she stopped this a few days ago with the onset of abdominal pain. REVIEW OF SYSTEMS: In addition to ROS noted above in HPI, the following review of systems were covered and otherwise felt noncontributory except as noted above in HPI: -CONSTITIONAL -EYE -ENT -CARDIOVASCULAR -PULMONARY -GI - -MUSCULOSKELETAL -NEURO -HEMATOLOGIC HISTORIES: PAST MEDICAL HISTORY: as documented above in HPI, also per chart review No past medical history on file. No past surgical history on file. MEDICATIONS: notable medications reviewed with patient, otherwise reviewed chart listed medications as below: No current facility-administered medications for this encounter. Current Outpatient Medications: pantoprazole DR (PROTONIX) 20 mg tablet Take 1 tablet by mouth once daily for 14 days. Disp: 14 tablet Rfl: 0 ALLERGIES: reviewed and agree with nursing documentation FAMILY MEDICAL HISTORY: No family history on file. SOCIAL HISTORY: Social History Tobacco Use - Smoking status: Not on file Substance Use Topics - Alcohol use: Not on file - Drug use: Not on file Physical Exam PHYSICAL EXAM: VITAL SIGNS - see nursing ED documentation GENERAL: NAD, appears as stated age EYES: EOMI spontaneously. No conjunctival injection ENT: Mucous Membranes Moist. Normocephalic, Atraumatic NECK: Supple LUNGS: Airway patent. Non-labored respiration. Lungs sounds equal bilateral anteriorly HEART: Peripheral pulses present, extremities WWP, S1 and S2 heard, regular rhythm ABDOMEN: Tenderness palpation of the right upper quadrant mild, primary in epigastrium, however other parts of the abdomen Non-distended and non-tender, without guarding or rebound. SKIN: warm, dry EXTREMITIES: Without obvious swelling, tenderness or deformity NEUROLOGICAL: Alert and Oriented. Cooperative and participating with exam, following commands ED COURSE/MANAGEMENT AND REVIEW Diagnostic Testing Labs Reviewed COMP METABOLIC PANEL - Abnormal; Notable for the following components: Result Value Potassium 3.5 (*) All other components within normal limits LIPASE BLD CBC + DIFF BETA HCG, QUANTITATIVE FOR ED ED Imaging Ordered (From admission, onward) Start Ordered Status Ordering Provider 12/15/18 0300 12/15/18 0247 US ABD RT UPPER QUADRANT Final result DANIELA WALTON US ABD RT UPPER QUADRANT Final Result IMPRESSION: FOCAL MILD INTRAHEPATIC BILIARY DILATION IN THE LEFT HEPATIC LOBE, OTHERWISE NORMAL SONOGRAPHIC APPEARANCE OF THE RIGHT UPPER QUADRANT. Patient Observation Assistant: NANETTE Transcribe Date/Time: Dec 15 2018 3:57A Dictated by : NANDO ALICEA MD This examination was interpreted and the report reviewed and electronically signed by: TONG ALBA MD on Dec 15 2018 4:19AM EST Medications Given ED Medication Administration from 12/15/2018 0130 to 12/15/2018 0456 Date/Time Order Dose Route Action 12/15/2018 0340 aluminum-magnesium hydroxide-simethicone 200-200-20 mg/5 mL 30 mL (MAALOX,MYLANTA,MAG-AL PLUS) 30 mL ORAL Given 12/15/2018 0340 lidocaine viscous 2 % 15 mL (XYLOCAINE) 15 mL ORAL Given 12/15/2018 0341 famotidine 20 mg injection (PEPCID) 20 mg INTRAVENOUS Given 12/15/2018 0340 ondansetron (PF) 4 mg injection (ZOFRAN) 4 mg INTRAVENOUS Given ED Course / Clinical Impression ED Course as of Dec 15 045 Daniela Walton's Documentation Mon Dec 15, 2018 0432 IMPRESSION: FOCAL MILD INTRAHEPATIC BILIARY DILATION IN THE LEFT HEPATIC LOBE, OTHERWISE NORMAL SONOGRAPHIC APPEARANCE OF THE RIGHT UPPER QUADRANT. Patient Observation Assistant: NANETTE ? Transcribe Date/Time: Dec 15 2018 ?3:57A Dictated by : ANNDO ALICEA MD This examination was interpreted and the report reviewed and electronically signed by: TONG ALBA MD on Dec 15 2018 ?4:19AM ?EST Results-Findings * * *Final Report* * * DATE OF EXAM: Dec 15 2018 ?3:31AM ? MEU ? 1032 ?- ?US ABD RIGHT UPPER QUADRANT ?/ PROCEDURE REASON: RUQ abdominal pain ?? ? * * * * Physician Interpretation * * * * ?EXAMINATION: ? RIGHT UPPER QUADRANT ULTRASOUND CLINICAL HISTORY: Patient returned from [place] trip to [facility] with right upper quadrant abdominal pain x4 days. TECHNIQUE: ?Sonography of the right upper quadrant ?was performed. ? Images were obtained and stored in a permanent archive. MQ: ?URUQ_1 COMPARISON: None. RESULT: Pancreas: Normal sonographic appearance. ?? Portions obscured: tail Liver: ?? ? Echotexture: ?Normal, homogeneous. ?? ? Echogenicity: ?Normal ?? ? Surface contour: ?Smooth ?? ? Lesions: ?None. Biliary: There is mild focal dilation of the intrahepatic bile ducts in the left hepatic lobe. ?? ? CBD: 0.3 cm at the hilum. ?? ? Gallbladder: ?Normal caliber ?-Contents: ?No cholelithiasis ?-Wall: ?Normal ?-Other: ?No pericholecystic fluid. Right Kidney: No hydronephrosis. Ascites: None. 0432 LAB RESULTS REVIEWED, PATIENT REPORTS IMPROVEMENT WITH MANAGEMENT HERE. FINDINGS ON ULTRASOUND DO NOT QUICKLY CORRELATE TO Clinical Impressions as of Dec 15 458 Epigastric pain MDM / Disposition / Plan SUMMARY/MEDICAL DECISION MAKING: Patient was triaged, had vital signs taken, and primary survey with airway patency was assessed. As needed, supplemental O2 and IV access was considered. I evaluated and examined the patient, ordering diagnostic studies and therapeutics as necessary to appropriately disposition the patient. In brief, patient presents with above complaint. Evaluation is noted as above, and available results were reviewed. Differential for presenting condition was considered to include but is not limited to: History and physical less consistent with appendicitis, diverticulitis, bowel obstruction or illeus. Presentation less consistent with ischemic bowel, also doubt leaking AAA. Labs and HANDP less consistent with pancreatitis, hepatitis, or biliary pathology like cholecystitis or cholangitis. HANDP also less consistent with Renal Stones, Urinary Tract Infection, or causes such as infection or torsion. With her recent travel to [facility] considered strongly the possibility of a viral hepatitis versus gallbladder disease, however again as above ultrasound and lab evaluation is reassuring. She seems most likely with the gastritis versus pill esophagitis due to recent doxycycline use, timing onset of medication, improvement with treatment here in the emergency department. Does not appear to have an emergent cause of her condition at this time requiring admission for further workup or evaluation, discussed return precautions and outpatient follow-up. Discussed the use of PPI, Pepto, follow-up with GI may need endoscopy should symptoms persist. Follow-up order placed Patient was given verbal and written discharge instructions, which also details new and/or worsening signs/symptoms that would prompt return evaluation at emergency department. Patient was understanding of above instructions and agreeable to discharge at this time. Diagnosis: #1, epigastric pain Disposition: Discharged Disposition status: [stable at disposition] ATTENDING NAME: MD Daniela Brown MD 12/15/18 0501 Normal [facility] Lipaseon 12-15-2018 Lipase enzyme act/vol 24 U/L Normal 16-61 [facility] Comment on above: Performed By: #### C BCDIF, CMP, LIPA #### [facility] [address] [place], [place] [address] US ABD RIGHT UPPER QUADRANTo n 12-15-2018 US ABD RIGHT UPPER QUADRANT * * *Final Report* * * DATE OF EXAM: Dec 15 2018 3:31AM ORU 1032 - US ABD RIGHT UPPER QUADRANT / PROCEDURE REASON: RUQ abdominal pain * * * * Physician Interpretation * * * * EXAMINATION: RIGHT UPPER QUADRANT ULTRASOUND CLINICAL HISTORY: Patient returned from [place] trip to [facility] with right upper quadrant abdominal pain x4 days. TECHNIQUE: Sonography of the right upper quadrant was performed. Images were obtained and stored in a permanent archive. MQ: URUQ_1 COMPARISON: None. RESULT: Pancreas: Normal sonographic appearance. Portions obscured: tail Liver: Echotexture: Normal, homogeneous. Echogenicity: Normal Surface contour: Smooth Lesions: None. Biliary: There is mild focal dilation of the intrahepatic bile ducts in the left hepatic lobe. CBD: 0.3 cm at the hilum. Gallbladder: Normal caliber -Contents: No cholelithiasis -Wall: Normal -Other: No pericholecystic fluid. Right Kidney: No hydronephrosis. Ascites: None. IMPRESSION: FOCAL MILD INTRAHEPATIC BILIARY DILATION IN THE LEFT HEPATIC LOBE, OTHERWISE NORMAL SONOGRAPHIC APPEARANCE OF THE RIGHT UPPER QUADRANT. Patient Observation Assistant: NANETTE Transcribe Date/Time: Dec 15 2018 3:57A Dictated by : NANDO ALICEA MD This examination was interpreted and the report reviewed and electronically signed by: TONG ALBA MD on Dec 15 2018 4:19AM EST [id number] Normal [facility] Culture, urine Bacteria identified Cx Nom (U) Positive [facility] Work Phone: No Panel Information Group B Streptococcus Culture Streptococcus agalactiae (B) [facility] Work Phone: Vital Signs Date Time Vital Sign Value Performing Clinician Jesse medellin 05-27-2025 14:55-0400 Body height 157.[address] Laureen Rasmussen MD Work Phone: [facility] 05-27-2025 14:55-0400 Body mass index (BMI) [Ratio] 29.9 kg/m2 Dr. Laureen Rasmussen MD Work Phone: [facility] 05-27-2025 14:55-0400 Body weight 74.[address] Laureen Rasmussen MD Work Phone: [facility] 05-27-2025 14:55-0400 Diastolic blood pressure 71 mm[Hg] Dr. Laureen Rasmussen MD Work Phone: [facility] 05-27-2025 14:55-0400 Systolic blood pressure 106 mm[Hg] Dr. Laureen Rasmussen MD Work Phone: [facility] 01-15-2024 08:37-0400 Body temperature 97.7 [degF] No Primary Care Physician [facility] 01-15-2024 08:37-0400 Diastolic blood pressure 72 mm[Hg] No Primary Care Physician [facility] 01-15-2024 08:37-0400 Heart rate 81 /min No Primary Care Physician [facility] 01-15-2024 08:37-0400 Respiratory rate 16 /min No Primary Care Physician [facility] 01-15-2024 08:37-0400 SaO2% (BldA) [Mass fraction] 99 % No Primary Care Physician [facility] 01-15-2024 08:37-0400 Systolic blood pressure 108 mm[Hg] No Primary Care Physician [facility] 01-14-2024 14:00-0400 Body temperature 98.4 [degF] No Primary Care Physician [facility] 01-14-2024 03:00-0400 Respiratory rate 16 /min No Primary Care Physician [facility] 01-14-2024 02:59-0400 Diastolic blood pressure 58 mm[Hg] No Primary Care Physician [facility] 01-14-2024 02:59-0400 Heart rate 89 /min No Primary Care Physician [facility] 01-14-2024 02:59-0400 Systolic blood pressure 101 mm[Hg] No Primary Care Physician [facility] 01-14-2024 01:25-0400 SaO2% (BldA) [Mass fraction] 99 % No Primary Care Physician [facility] 01-13-2024 12:59-0400 Body height 157.48 cm No Primary Care Physician [facility] 01-13-2024 12:59-0400 Body mass index (BMI) [Ratio] 27.8 kg/m2 No Primary Care Physician [facility] 01-13-2024 12:59-0400 Body weight 68.94 kg No Primary Care Physician [facility] 01-13-2024 12:01-0400 Diastolic blood pressure 75 mm[Hg] No Primary Care Physician [facility] 01-13-2024 12:01-0400 Systolic blood pressure 116 mm[Hg] No Primary Care Physician [facility] 01-13-2024 11:31-0400 Body mass index (BMI) [Ratio] 29.9 kg/m2 No Primary Care Physician [facility] 01-13-2024 11:31-0400 Body weight 74.38 kg No Primary Care Physician [facility] 01-08-2024 14:46-0400 Body mass index (BMI) [Ratio] 29.4 kg/m2 No Primary Care Physician [facility] 01-08-2024 14:46-0400 Body weight 73.02 kg No Primary Care Physician [facility] 01-08-2024 14:46-0400 Diastolic blood pressure 79 mm[Hg] No Primary Care Physician [facility] 01-08-2024 14:46-0400 Systolic blood pressure 114 mm[Hg] No Primary Care Physician [facility] 01-02-2024 11:40-0400 Body height 157.48 cm No Primary Care Physician [facility] 01-02-2024 11:40-0400 Body mass index (BMI) [Ratio] 29.6 kg/m2 No Primary Care Physician [facility] 01-02-2024 11:40-0400 Body weight 73.48 kg No Primary Care Physician [facility] 01-02-2024 11:19-0400 Body temperature 98.1 [degF] No Primary Care Physician [facility] 01-02-2024 11:19-0400 Respiratory rate 18 /min No Primary Care Physician [facility] 01-02-2024 11:18-0400 Diastolic blood pressure 72 mm[Hg] No Primary Care Physician [facility] 01-02-2024 11:18-0400 Heart rate 87 /min No Primary Care Physician [facility] 01-02-2024 11:18-0400 Systolic blood pressure 111 mm[Hg] No Primary Care Physician [facility] 12-11-2023 11:03-0500 Body height 157.48 cm No Primary Care Physician [facility] 12-11-2023 11:02-0500 Body mass index (BMI) [Ratio] 29.3 kg/m2 No Primary Care Physician [facility] 12-11-2023 11:02-0500 Body weight 72.74 kg No Primary Care Physician [facility] 12-11-2023 11:02-0500 Diastolic blood pressure 73 mm[Hg] No Primary Care Physician [facility] 12-11-2023 11:02-0500 Systolic blood pressure 116 mm[Hg] No Primary Care Physician [facility] 11-28-2023 11:27-0500 Diastolic blood pressure 64 mm[Hg] No Primary Care Physician [facility] 11-28-2023 11:27-0500 Systolic blood pressure 103 mm[Hg] No Primary Care Physician [facility] 11-28-2023 11:03-0500 Body mass index (BMI) [Ratio] 28.9 kg/m2 No Primary Care Physician [facility] 11-28-2023 11:03-0500 Body weight 71.66 kg No Primary Care Physician [facility] 11-13-2023 11:48-0500 Body mass index (BMI) [Ratio] 28.5 kg/m2 No Primary Care Physician [facility] 11-13-2023 11:48-0500 Body weight 70.76 kg No Primary Care Physician [facility] 11-13-2023 11:48-0500 Diastolic blood pressure 73 mm[Hg] No Primary Care Physician [facility] 11-13-2023 11:48-0500 Systolic blood pressure 123 mm[Hg] No Primary Care Physician [facility] 10-17-2023 09:11-0500 Body height 157.48 cm No Primary Care Physician [facility] 10-17-2023 09:11-0500 Body mass index (BMI) [Ratio] 28.2 kg/m2 No Primary Care Physician [facility] 10-17-2023 09:11-0500 Body weight 69.96 kg No Primary Care Physician [facility] 10-17-2023 09:11-0500 Diastolic blood pressure 78 mm[Hg] No Primary Care Physician [facility] 10-17-2023 09:11-0500 Systolic blood pressure 126 mm[Hg] No Primary Care Physician [facility] 09-19-2023 15:09-0500 Body mass index (BMI) [Ratio] 28.1 kg/m2 No Primary Care Physician [facility] 09-19-2023 15:09-0500 Body weight 69.85 kg No Primary Care Physician [facility] 09-19-2023 15:09-0500 Diastolic blood pressure 63 mm[Hg] No Primary Care Physician [facility] 09-19-2023 15:09-0500 Systolic blood pressure 99 mm[Hg] No Primary Care Physician [facility] 08-19-2023 14:12-0500 Body mass index (BMI) [Ratio] 27.3 kg/m2 No Primary Care Physician [facility] 08-19-2023 14:12-0500 Body weight 67.75 kg No Primary Care Physician [facility] 08-19-2023 14:12-0500 Diastolic blood pressure 73 mm[Hg] No Primary Care Physician [facility] 08-19-2023 14:12-0500 Systolic blood pressure 110 mm[Hg] No Primary Care Physician [facility] 07-25-2023 09:20-0400 Body height 157.48 cm No Primary Care Physician [facility] 07-25-2023 09:15-0400 Body mass index (BMI) [Ratio] 26.7 kg/m2 No Primary Care Physician [facility] 07-25-2023 09:15-0400 Body weight 66.39 kg No Primary Care Physician [facility] 07-25-2023 09:15-0400 Diastolic blood pressure 77 mm[Hg] No Primary Care Physician [facility] 07-25-2023 09:15-0400 Systolic blood pressure 127 mm[Hg] No Primary Care Physician [facility] 06-24-2023 08:55-0400 Body height 157.[address] Fanta Zarate Work Phone: [facility] 06-24-2023 08:50-0400 Body mass index (BMI) [Ratio] 26.8 kg/m2 Dr. Fanta Zarate Work Phone: [facility] 06-24-2023 08:50-0400 Body weight 66.[address] Fanta Zarate Work Phone: [facility] 06-24-2023 08:50-0400 Diastolic blood pressure 63 mm[Hg] Dr. Fanta Zarate Work Phone: [facility] 06-24-2023 08:50-0400 Systolic blood pressure 110 mm[Hg] Dr. Fanta Zarate Work Phone: [facility] 06-22-2022 15:25-0400 Heart rate 63 /min [facility] Work Phone: 06-22-2022 15:25-0400 SaO2% (BldA) [Mass fraction] 97 % [facility] Work Phone: 06-22-2022 15:24-0400 Diastolic blood pressure 55 mm[Hg] [facility] Work Phone: 06-22-2022 15:24-0400 Systolic blood pressure 105 mm[Hg] [facility] Work Phone: 06-22-2022 15:23-0400 Body temperature 97.3 [degF] [facility] Work Phone: 06-22-2022 11:46-0400 Respiratory rate 18 /min [facility] Work Phone: 06-21-2022 07:27-0400 Body height 157.48 cm [facility] Work Phone: 06-21-2022 07:27-0400 Body mass index (BMI) [Ratio] 29.8 kg/m2 [facility] Work Phone: 06-21-2022 07:27-0400 Body weight 73.93 kg [facility] Work Phone: 06-18-2022 03:42-0400 Body weight 73.3 kg [facility] Work Phone: 06-18-2022 00:43-0400 Diastolic blood pressure 62 mm[Hg] [facility] Work Phone: 06-18-2022 00:43-0400 Heart rate 86 /min [facility] Work Phone: 06-18-2022 00:43-0400 Systolic blood pressure 101 mm[Hg] [facility] Work Phone: 06-18-2022 00:36-0400 SaO2% (BldA) [Mass fraction] 98 % [facility] Work Phone: 06-09-2022 18:38-0400 Heart rate 103 /min [facility] Work Phone: 06-09-2022 18:38-0400 SaO2% (BldA) [Mass fraction] 98 % [facility] Work Phone: 06-09-2022 07:19-0400 Body height 157.48 cm [facility] Work Phone: 06-09-2022 07:19-0400 Body mass index (BMI) [Ratio] 29.5 kg/m2 [facility] Work Phone: 06-09-2022 07:19-0400 Body weight 73.4 kg [facility] Work Phone: 06-09-2022 06:58-0400 Diastolic blood pressure 73 mm[Hg] [facility] Work Phone: 06-09-2022 06:58-0400 Heart rate 95 /min [facility] Work Phone: 06-09-2022 06:58-0400 Systolic blood pressure 121 mm[Hg] [facility] Work Phone: 06-09-2022 06:54-0400 Body temperature 97.6 [degF] [facility] Work Phone: 06-07-2022 15:59-0400 Heart rate 108 /min [facility] Work Phone: 06-07-2022 15:59-0400 SaO2% (BldA) [Mass fraction] 99 % [facility] Work Phone: 06-07-2022 11:15-0400 Body mass index (BMI) [Ratio] 29.5 kg/m2 [facility] Work Phone: 06-07-2022 11:15-0400 Body weight 73.08 kg [facility] Work Phone: 06-07-2022 11:12-0400 Diastolic blood pressure 69 mm[Hg] [facility] Work Phone: 06-07-2022 11:12-0400 Systolic blood pressure 117 mm[Hg] [facility] Work Phone: 04-23-2022 19:49-0400 Body height 157.48 cm [facility] Work Phone: 04-23-2022 19:49-0400 Body mass index (BMI) [Ratio] 28.1 kg/m2 [facility] Work Phone: 04-23-2022 19:49-0400 Body weight 69.76 kg [facility] Work Phone: 04-23-2022 19:31-0400 Diastolic blood pressure 67 mm[Hg] [facility] Work Phone: 04-23-2022 19:31-0400 Heart rate 73 /min [facility] Work Phone: 04-23-2022 19:31-0400 Systolic blood pressure 116 mm[Hg] [facility] Work Phone: 04-23-2022 19:30-0400 Body temperature 97.4 [degF] [facility] Work Phone: 08-24-2021 10:51-0500 Body height 157.5 cm Parmjit Enrique MD Work Phone: [employer] [facility] 08-24-2021 10:51-0500 Body mass index (BMI) [Ratio] 26.08 kg/m2 Parmjit Enrique MD Work Phone: [email or web address] [facility] 08-24-2021 10:51-0500 Body temperature 97.11 [degF] Parmjit Enrique MD Work Phone: [email or web address] [facility] 08-24-2021 10:51-0500 Body weight 64.68 kg Parmjit Enrique MD Work Phone: [email or web address] [facility] 08-24-2021 10:51-0500 Diastolic blood pressure 62 mm[Hg] Parmjit Enriuqe MD Work Phone: [email or web address] [facility] 08-24-2021 10:51-0500 Heart rate 98 /min Parmjit Enrique MD Work Phone: [email or web address] [facility] 08-24-2021 10:51-0500 SaO2% (BldA) [Mass fraction] 98 % Parmjit Enrique MD Work Phone: [facility] 08-24-2021 10:51-0500 Systolic blood pressure 114 mm[Hg] Parmjit Enrique MD Work Phone: [email or web address] [facility] 02-26-2021 23:03-0400 Diastolic blood pressure 60 mm[Hg] Sagar Rodriguez MD Work Phone: [facility] 02-26-2021 23:03-0400 Heart rate 84 /min Sagar Rodriguez MD Work Phone: [facility] 02-26-2021 23:03-0400 Respiratory rate 18 /min Sagar Rodriguez MD Work Phone: [facility] 02-26-2021 23:03-0400 SaO2% (BldA) [Mass fraction] 98 % Sagar Rodriguez MD Work Phone: [facility] 02-26-2021 23:03-0400 Systolic blood pressure 110 mm[Hg] Sagar Rodriguez MD Work Phone: [facility] 02-26-2021 21:46-0400 Body height 157.5 cm Sagar Rodriguez MD Work Phone: [facility] 02-26-2021 21:46-0400 Body mass index (BMI) [Ratio] 25.4 kg/m2 Sagar Rodriguez MD Work Phone: [facility] 02-26-2021 21:46-0400 Body weight 63 kg Sagar Rodriguez MD Work Phone: [facility] 02-26-2021 21:45-0400 Body temperature 99.7 [degF] Sagar Rodriguez MD Work Phone: [facility] 02-08-2021 23:05-0400 Heart rate 104 /min Nehal Flower MD Work Phone: [facility] 02-08-2021 23:05-0400 SaO2% (BldA) [Mass fraction] 97 % Nehal Flower MD Work Phone: [facility] 02-08-2021 22:48-0400 Body temperature 98.6 [degF] Nehal Flower MD Work Phone: [facility] 02-08-2021 22:48-0400 Diastolic blood pressure 69 mm[Hg] Nehal Flower MD Work Phone: [facility] 02-08-2021 22:48-0400 Respiratory rate 16 /min Nehal Flower MD Work Phone: [facility] [employer] [facility] 02-08-2021 22:48-0400 Systolic blood pressure 110 mm[Hg] Nehal Flower MD Work Phone: [facility] 02-07-2021 10:06-0400 Body height 157.5 cm Mady Amor MD Work Phone: [facility] 02-07-2021 10:06-0400 Body mass index (BMI) [Ratio] 29.37 kg/m2 Mady Amor MD Work Phone: [facility] 02-07-2021 10:06-0400 Body temperature 98.2 [degF] Mady Amor MD Work Phone: [facility] 02-07-2021 10:06-0400 Body weight 72.85 kg aMdy Amor MD Work Phone: [facility] 02-07-2021 10:06-0400 Diastolic blood pressure 72 mm[Hg] Mady Amor MD Work Phone: [facility] 02-07-2021 10:06-0400 Systolic blood pressure 112 mm[Hg] Mady Amor MD Work Phone: [facility] 02-06-2021 23:29-0400 Body temperature 96.6 [degF] Nehal Flower MD Work Phone: [facility] 02-06-2021 23:29-0400 Diastolic blood pressure 67 mm[Hg] Nehal Flower MD Work Phone: [email or web address] [facility] 02-06-2021 23:29-0400 Heart rate 83 /min Nehal Flower MD Work Phone: [facility] 02-06-2021 23:29-0400 Respiratory rate 16 /min Nehal Flower MD Work Phone: [facility] 02-06-2021 23:29-0400 SaO2% (BldA) [Mass fraction] 98 % Nehal Flower MD Work Phone: [facility] 02-06-2021 23:29-0400 Systolic blood pressure 117 mm[Hg] Nehal Flower MD Work Phone: [facility] 02-06-2021 22:15-0400 Body height 157.5 cm Nehal Flower MD Work Phone: [facility] 02-06-2021 22:15-0400 Body mass index (BMI) [Ratio] 29.15 kg/m2 Nehal Flower MD Work Phone: [facility] 02-06-2021 22:15-0400 Body weight 72.3 kg Nehal Flower MD Work Phone: [facility] 02-02-2021 13:21-0400 Body height 157.5 cm Rosita Chacon APRN-ATIYA Work Phone: [facility] 02-02-2021 13:21-0400 Body mass index (BMI) [Ratio] 29.26 kg/m2 Rosita Chacon APRN-WHITE SPOOLER Work Phone: [facility] 02-02-2021 13:21-0400 Body temperature 97.5 [degF] Rosita Chacon WHITE SPOOLER-WHITE SPOOLER Work Phone: [facility] 02-02-2021 13:21-0400 Body weight 72.58 kg Rosita Chacon APRN-WHITE SPOOLER Work Phone: [facility] 02-02-2021 13:21-0400 Diastolic blood pressure 64 mm[Hg] Rosita Chacon WHITE SPOOLER-WHITE SPOOLER Work Phone: [facility] 02-02-2021 13:21-0400 Systolic blood pressure 118 mm[Hg] Rosita Chacon WHITE SPOOLER-WHITE SPOOLER Work Phone: [facility] 01-26-2021 08:21-0400 Body height 157.5 cm Mady Amor MD Work Phone: [facility] 01-26-2021 08:21-0400 Body mass index (BMI) [Ratio] 29.45 kg/m2 Mady Amor MD Work Phone: [facility] 01-26-2021 08:21-0400 Body temperature 97.5 [degF] Mady Amor MD Work Phone: [facility] 01-26-2021 08:21-0400 Body weight 73.03 kg Mady Amor MD Work Phone: [facility] 01-26-2021 08:21-0400 Diastolic blood pressure 66 mm[Hg] Mady Amor MD Work Phone: [facility] 01-26-2021 08:21-0400 Systolic blood pressure 110 mm[Hg] Mady Amor MD Work Phone: [facility] 01-12-2021 08:43-0400 BMI (Body Mass Index) 28.31 kg/m2 [facility] 01-12-2021 08:43-0400 Body Temperature 98.1 [degF] [facility] [employer] [facility] 01-12-2021 08:43-0400 Body weight 70.22 kg [facility] [employer] [facility] 01-12-2021 08:43-0400 BP Diastolic 62 mm[Hg] [facility] 01-12-2021 08:43-0400 BP Systolic 120 mm[Hg] [facility] 01-12-2021 08:43-0400 Height 157.5 cm [facility] 12-26-2020 13:18-0400 BMI (Body Mass Index) 27.51 kg/m2 [facility] 12-26-2020 13:18-0400 Body Temperature 98.4 [degF] [facility] [email or web address] [facility] 12-26-2020 13:18-0400 Body weight 68.22 kg [facility] [employer] [facility] 12-26-2020 13:18-0400 BP Diastolic 62 mm[Hg] [facility] [employer] [facility] 12-26-2020 13:18-0400 BP Systolic 120 mm[Hg] [facility] 12-26-2020 13:18-0400 Height 157.5 cm [facility] 12-12-2020 08:56-0500 BMI (Body Mass Index) 27.44 kg/m2 [facility] 12-12-2020 08:56-0500 Body Temperature 97.39 [degF] [facility] 12-12-2020 08:56-0500 Body weight 68.04 kg [facility] 12-12-2020 08:56-0500 BP Diastolic 60 mm[Hg] [facility] 12-12-2020 08:56-0500 BP Systolic 100 mm[Hg] [facility] 12-12-2020 08:56-0500 Height 157.5 cm [facility] 11-28-2020 08:18-0500 BMI (Body Mass Index) 27.07 kg/m2 [facility] 11-28-2020 08:18-0500 Body Temperature 96.6 [degF] [facility] 11-28-2020 08:18-0500 Body weight 67.13 kg [facility] 11-28-2020 08:18-0500 BP Diastolic 64 mm[Hg] [facility] 11-28-2020 08:18-0500 BP Systolic 110 mm[Hg] [facility] 11-28-2020 08:18-0500 Height 157.5 cm [facility] 11-24-2020 23:45-0500 BP Diastolic 52 mm[Hg] [facility] 11-24-2020 23:45-0500 BP Systolic 105 mm[Hg] [facility] 11-24-2020 23:45-0500 Pulse (Heart Rate) 79 /min [facility] 11-24-2020 23:45-0500 Pulse Oximetry 96 % [facility] 11-24-2020 21:39-0500 Body Temperature 98.2 [degF] [facility] 11-24-2020 21:39-0500 Height 157.5 cm [facility] 11-24-2020 21:39-0500 Respiratory Rate 18 /min [facility] 10-24-2020 10:31-0500 BMI (Body Mass Index) 25.79 kg/m2 [facility] 10-24-2020 10:31-0500 Body Temperature 97.3 [degF] [facility] 10-24-2020 10:31-0500 Body weight 63.96 kg [facility] 10-24-2020 10:31-0500 BP Diastolic 70 mm[Hg] [facility] 10-24-2020 10:31-0500 BP Systolic 104 mm[Hg] [facility] 10-24-2020 10:31-0500 Height 157.5 cm [facility] 10-03-2020 09:54-0500 BMI (Body Mass Index) 25.97 kg/m2 [facility] 10-03-2020 09:54-0500 Body Temperature 96.4 [degF] [facility] 10-03-2020 09:54-0500 Body weight 64.41 kg [facility] 10-03-2020 09:54-0500 BP Diastolic 60 mm[Hg] [facility] 10-03-2020 09:54-0500 BP Systolic 104 mm[Hg] [facility] 10-03-2020 09:54-0500 Height 157.5 cm [facility] 09-05-2020 14:32-0500 BMI (Body Mass Index) 25.24 kg/m2 [facility] 09-05-2020 14:32-0500 Body Temperature 97.39 [degF] [facility] 09-05-2020 14:32-0500 Body weight 62.6 kg [facility] 09-05-2020 14:32-0500 BP Diastolic 58 mm[Hg] [facility] 09-05-2020 14:32-0500 BP Systolic 102 mm[Hg] [facility] 09-05-2020 14:32-0500 Height 157.5 cm [facility] 08-01-2020 07:39-0400 BMI (Body Mass Index) 25.24 kg/m2 [facility] 08-01-2020 07:39-0400 Body Temperature 97 [degF] [facility] 08-01-2020 07:39-0400 Body weight 62.6 kg [facility] 08-01-2020 07:39-0400 BP Diastolic 56 mm[Hg] [facility] 08-01-2020 07:39-0400 BP Systolic 108 mm[Hg] [facility] 08-01-2020 07:39-0400 Height 157.5 cm [facility] 06-30-2020 16:53-0400 Body surface area Derived from formula 1.62 m2 [facility] 06-30-2020 08:03-0400 BMI (Body Mass Index) 24.87 kg/m2 [facility] 06-30-2020 08:03-0400 Body Temperature 97.81 [degF] [facility] 06-30-2020 08:03-0400 Body weight 61.69 kg [facility] 06-30-2020 08:03-0400 BP Diastolic 58 mm[Hg] [facility] 06-30-2020 08:03-0400 BP Systolic 110 mm[Hg] [facility] 06-30-2020 08:03-0400 Height 157.5 cm [facility] 06-24-2020 13:55-0400 BMI (Body Mass Index) 24.69 kg/m2 [address] 06-24-2020 13:55-0400 Body Temperature 98.01 [degF] Avg Myrna Gal [id number] [facility] 06-24-2020 13:55-0400 Body weight 61.24 kg Avg Myrna Gal [id number] [facility] 06-24-2020 13:55-0400 BP Diastolic 60 mm[Hg] Avg Myrna Gal [id number] [facility] 06-24-2020 13:55-0400 BP Systolic 100 mm[Hg] Avg Myrna Gal [id number] [facility] 06-24-2020 13:55-0400 Height 157.5 cm Avg Myrna Gal [id number] [facility] 06-14-2020 11:01-0400 BMI (Body Mass Index) 25.06 kg/m2 Avg Myrna Gal [id number] [facility] 06-14-2020 11:01-0400 Body Temperature 99.19 [degF] Avg Myrna Gal [id number] [facility] 06-14-2020 11:01-0400 Body weight 62.14 kg Avg Myrna Gal [id number] [facility] 06-14-2020 11:01-0400 BP Diastolic 58 mm[Hg] Avg Myrna Gal [id number] [facility] 06-14-2020 11:01-0400 BP Systolic 100 mm[Hg] Avg Myrna Gal [id number] [facility] 06-14-2020 11:01-0400 Height 157.5 cm Avg Myrna Gal [id number] [facility] 05-12-2020 10:36-0400 BMI (Body Mass Index) 24.87 kg/m2 [facility] 05-12-2020 10:36-0400 Body Temperature 97.59 [degF] [facility] 05-12-2020 10:36-0400 Body weight 61.69 kg [facility] 05-12-2020 10:36-0400 Height 157.5 cm [facility] 04-28-2020 09:56-0400 BP Diastolic 66 mm[Hg] [facility] 04-28-2020 09:56-0400 BP Systolic 108 mm[Hg] [facility] 04-28-2020 09:56-0400 Pulse (Heart Rate) 70 /min [facility] 04-28-2020 09:56-0400 Pulse Oximetry 99 % [facility] 04-28-2020 09:56-0400 Respiratory Rate 16 /min [facility] 04-28-2020 09:25-0400 Body Temperature 98.1 [degF] [facility] 04-28-2020 06:31-0400 BMI (Body Mass Index) 24.87 kg/m2 [facility] 04-28-2020 06:31-0400 Body weight 61.69 kg [facility] 04-28-2020 06:31-0400 Height 157.5 cm [facility] 04-07-2020 15:32-0400 BMI (Body Mass Index) 24.95 kg/m2 [facility] 04-07-2020 15:32-0400 Body Temperature 98.1 [degF] [facility] 04-07-2020 15:32-0400 Body weight 61.87 kg [facility] 04-07-2020 15:32-0400 Height 157.5 cm [facility] 03-10-2020 10:09-0400 BMI (Body Mass Index) 25.42 kg/m2 [facility] 03-10-2020 10:09-0400 Body Temperature 97.11 [degF] [facility] 03-10-2020 10:09-0400 Body weight 63.05 kg [facility] 03-10-2020 10:09-0400 Height 157.5 cm [facility] 02-04-2020 09:50-0400 BMI (Body Mass Index) 25.02 kg/m2 [facility] 02-04-2020 09:50-0400 Body Temperature 99.1 [degF] [facility] 02-04-2020 09:50-0400 Body weight 62.05 kg [facility] 02-04-2020 09:50-0400 BP Diastolic 62 mm[Hg] [facility] 02-04-2020 09:50-0400 BP Systolic 116 mm[Hg] [facility] 02-04-2020 09:50-0400 Height 157.5 cm [facility] 02-04-2020 09:50-0400 Pulse (Heart Rate) 69 /min Parmjit [facility] 02-04-2020 09:50-0400 Pulse Oximetry 99 % Parmjit [facility] 02-01-2020 10:50-0400 BMI (Body Mass Index) 24.69 kg/m2 [facility] 02-01-2020 10:50-0400 Body Temperature 98.4 [degF] [facility] 02-01-2020 10:50-0400 Body weight 61.24 kg [facility] 02-01-2020 10:50-0400 BP Diastolic 68 mm[Hg] [facility] 02-01-2020 10:50-0400 BP Systolic 106 mm[Hg] [facility] 02-01-2020 10:50-0400 Height 157.5 cm [facility] 08-21-2018 12:49-0500 BMI (Body Mass Index) 22.86 kg/m2 [facility] 08-21-2018 12:49-0500 Body Temperature 98.29 [degF] [facility] 08-21-2018 12:49-0500 BP Diastolic 78 mm[Hg] [facility] 08-21-2018 12:49-0500 BP Systolic 116 mm[Hg] [facility] 08-21-2018 12:49-[address] [facility] 08-21-2018 12:49-0500 Pulse (Heart Rate) 76 /min [facility] 08-21-2018 12:49-0500 Pulse Oximetry 99 % [facility] 08-21-2018 12:49-0500 Respiratory Rate 16 /min [facility] 08-21-2018 12:49-[address] [facility] [facility] Encounters Encounter Date Encounter Type Care Provider Facility Start: 05-27-2025 End: 05-27-[address] Laureen Rasmussen MD Work Phone: -Laboratory Specimen Start: 05-27-2025 End: 05-27-2025 Patient encounter procedure Juliet Virk CNM -Laboratory Specimen Work Phone: Start: 05-27-2025 End: 05-27-2025 Patient encounter procedure [facility]k [facility] Work Phone: Start: 05-27-2025 End: 05-27-[address] Laureen Rasmussen MD Work Phone: [facility] Start: 05-27-2025 End: 05-27-2025 ambulatory Juliet Virk Facility:[facility] Start: 05-14-2025 Non-patient / Non-visit Beryl fuentes RN [facility] Work Phone: Start: 05-14-2025 ambulatory Beryl Kamara Facility :[facility] Start: 11-18-2024 End: 11-18-2024 ambulatory No Primary Care Physician Facility:[facility] Start: 11-18-2024 End: 11-18-2024 ambulatory Sagar CANTRELL Facility:[facility] Start: 06-10-2024 End: 06-10-2024 ambulatory No Primary Care Physician Facility:[facility] Start: 06-10-2024 End: 06-10-2024 ambulatory Sagar CANTRELL Facility:[facility] Start: 04-22-2024 End: 04-22-2024 ambulatory MD NO PRIMARY CARE [facility] Start: 01-15-2024 Non-patient / Non-visit No Belinda kirby Care Physician [facility] Start: 01-13-2024 Non-patient / Non-visit No Belinda kirby Care Physician [facility] Start: 01-13-2024 End: 01-15-2024 Evaluation and management of inpatient No Primary Care Physician [facility] Work Phone: Start: 01-13-2024 End: 01-13-2024 Patient encounter procedure No Primary Care Physician [facility] Work Phone: Start: 01-08-2024 End: 01-08-2024 ambulatory No Primary Care Physician [facility] Work Phone: Start: 01-08-2024 End: 01-08-2024 Patient encounter procedure No Primary Care Physician [facility] Work Phone: Start: 01-03-2024 Non-patient / Non-visit No [facility] Physician [id number] Start: 01-02-2024 End: 01-02-2024 ambulatory No Primary Care Physician [facility] Work Phone: Start: 01-02-2024 End: 01-02-2024 Patient encounter procedure No Primary Care Physician [facility] Work Phone: Start: 12-23-2023 End: 12-23-2023 Patient encounter procedure No Primary Care Physician [facility] Work Phone: Start: 12-11-2023 End: 12-11-2023 ambulatory No Primary [facility] Physician [facility] Work Phone: Start: 12-11-2023 End: 12-11-2023 Patient encounter procedure No Primary Care Physician [facility]Labor[facility], Specimen Work Phone: Start: 12-11-2023 End: 12-11-2023 Patient encounter procedure No Primary Care Physician [facility] Work Phone: Start: 11-28-2023 End: 11-28-2023 Patient encounter procedure No Primary Care Physician [facility] Work Phone: Start: 11-13-2023 End: 11-13-2023 Patient encounter procedure No Primary Care Physician [facility] Work Phone: Start: 10-17-2023 End: 10-17-2023 ambulatory No Primary Care Physician [facility] Work Phone: Start: 10-17-2023 End: 10-17-2023 Patient encounter procedure No Primary Care Physician [facility] Work Phone: Start: 09-19-2023 End: 09-19-2023 Patient encounter procedure No Primary Care Physician [facility] Work Phone: Start: 09-11-2023 End: 09-11-2023 Patient encounter procedure No Primary Care Physician [facility] Work Phone: Start: 08-19-2023 End: 08-19-2023 Patient encounter procedure No Primary Care Physician [facility] Work Phone: Start: 07-25-2023 End: 07-25-2023 Patient encounter procedure No Primary Care Physician [facility] Work Phone: Start: 07-11-2023 End: 08-06-2023 ambulatory No Primary Care Physician [facility] Work Phone: Start: 07-11-2023 End: 08-06-2023 Discharged Recurring No Primary Care Physician [facility] Start: 06-24-2023 End: 06-24-[address] Fanta Zarate Work Phone: [facility] Work Phone: Start: 06-24-2023 End: 06-24-[address] Fanta Zarate Work Phone: [facility] Work Phone: Start: 08-01-2022 End: 08-01-2022 ambulatory [facility] Work Phone: Start: 08-01-2022 End: 08-01-2022 Patient encounter procedure [facility] [place] edi manager Off Start: 06-21-2022 End: 06-22-2022 Evaluation and management of inpatient [facility] Start: 06-18-2022 End: 06-18-2022 Patient encounter procedure [facility] Start: 06-09-2022 End: 06-09-2022 ambulatory [facility] Work Phone: Start: 06-09-2022 End: 06-09-2022 Patient encounter procedure [facility] Out[facility] Start: 06-07-2022 End: 06-07-2022 Patient encounter procedure [facility] Outpatients Start: 06-04-2022 End: 06-04-2022 ambulatory [facility] Work Phone: Start: 06-04-2022 End: 06-04-2022 Patient encounter procedure [facility], Specimen Start: 05-19-2022 End: 06-06-2022 ambulatory [facility] Work Phone: Start: 05-19-2022 End: 06-06-2022 Discharged Recurring [facility] Start: 04-23-2022 End: 04-23-2022 Patient encounter procedure [facility], Outpatients Start: 03-27-2022 End: 03-27-2022 Patient encounter procedure [facility], Specimen Start: 11-17-2021 End: 11-17-2021 Office outpatient visit 15 minutes Parmjit Enrique MD Work Phone: [facility] Comment on above: Anxiety disorder, un specified type (Primary Dx); Dysthymia Start: 08-24-2021 End: 08-24-2021 Patient encounter status Parmjit Enrique MD Work Phone: [facility] Start: 08-24-2021 End: 08-24-2021 Periodic preventive med est patient 18-39 yrs Parmjit Enrique MD Work Phone: [facility] Comment on above: Routine general medi kayli examination at a health care facility (Primary Dx) Start: 02-26-2021 End: 02-26-2021 Emergency department patient visit Sagar Rodriguez MD Work Phone: [facility] Start: 02-08-2021 End: 02-09-2021 Subsequent hospital visit by physician Nehal Flower MD Work Phone: [facility] Start: 02-07-2021 End: 02-07-2021 Subsequent care visit Mady Amor MD Work Phone: [facility] [employer] Comment on above: Encounter for electi ve induction of labor (Primary Dx); Anxiety; Family history of clotting disorder; Uterine contractions during Start: 02-06-2021 End: 02-06-2021 Subsequent hospital visit by physician Nehal Flower MD Work Phone: [facility] Start: 02-02-2021 End: 02-02-2021 Subsequent hospital visit by physician Raymon Madera MD Work Phone: [facility] Start: 02-02-2021 End: 02-02-2021 Subsequent care visit Raymon Madera MD Work Phone: [facility] [employer] Comment on above: Encounter for superv ision of normal first in third trimester (Primary Dx); Uncertain lie of fetus, single or unspecified fetus; Anxiety; 37 weeks gestation of Start: 01-26-2021 End: 01-26-2021 Subsequent care visit Raymon Madera MD Work Phone: [facility] [employer] OFF[employer] Comment on above: 36 weeks gestation o f (Primary Dx); Family history of clotting disorder Start: 01-12-2021 End: 01-12-2021 Follow-up encounter Rosita Chacon Work Phone: [email or web address] Comment on above: Family history of cl otting disorder Start: 12-26-2020 End: 12-26-2020 Follow-up encounter Raymon Madera Work Phone: [facility] [employer] OFF[employer] Comment on above: Family history of cl otting disorder Start: 12-12-2020 End: 12-12-2020 Follow-up encounter Rosita Chacon Work Phone: [facility] [employer] OFF[employer] Comment on above: High-risk , young primigravida in third trimester (Primary Dx); Anxiety in , antepartum; 30 weeks gestation of Start: 12-07-2020 End: 12-07-2020 Subsequent hospital visit by physician Raymon Madera Work Phone: [facility] Start: 11-28-2020 End: 11-28-2020 Follow-up encounter Sandra Mchugh Work Phone: [email or web address] Comment on above: High-risk , young primigravida in third trimester (Primary Dx); H/O migraine during ; Anxiety in , antepartum; headache in third trimester; 28 weeks gestation of Start: 11-24-2020 End: 11-25-2020 Emergency department patient visit Bartolo Zheng Work Phone: [facility] Start: 10-24-2020 End: 10-24-2020 Follow-up encounter Raymon Madera Work Phone: [email or web address] Comment on above: Encounter for superv ision of normal first in second trimester (Primary Dx); 23 weeks gestation of Start: 10-24-2020 End: 10-24-2020 Subsequent hospital visit by physician Raymon Madera Work Phone: [facility] Start: 10-03-2020 End: 10-03-2020 Follow-up encounter Sandra Mchugh Work Phone: [email or web address] Comment on above: Encounter for superv ision of normal first in second trimester (Primary Dx); 20 weeks gestation of Start: 09-05-2020 End: 09-05-2020 Follow-up encounter Raymon Madera Work Phone: [email or web address] Comment on above: Encounter for superv ision of normal first in second trimester (Primary Dx); Alopecia; 16 weeks gestation of Start: 09-05-2020 End: 09-05-2020 Subsequent hospital visit by physician Raymon Madera Work Phone: [facility] Start: 08-01-2020 End: 08-01-2020 Follow-up encounter Raymon Madera Work Phone: [email or web address] Comment on above: Encounter for superv ision of normal first in first trimester (Primary Dx); 11 weeks gestation of Start: 06-30-2020 End: 06-30-2020 Follow-up encounter Rosita Chacon Work Phone: [email or web address] Comment on above: Encounter for superv ision of normal first in first trimester (Primary Dx); 6 weeks gestation of Start: 06-30-2020 End: 06-30-2020 Subsequent hospital visit by physician Raymon Madera Work Phone: [facility] Start: 06-24-2020 End: 06-24-2020 Office outpatient visit 5 minutes Raymon Madera Work Phone: [email or web address] Comment on above: 10 weeks gestation o f (Primary Dx); Family history of clotting disorder Start: 06-14-2020 End: 06-14-2020 Clinical Support Encounter Raymon Madera Work Phone: [email or web address] Comment on above: Missed period (Prima ry Dx); Clotting disorder Start: 05-12-2020 End: 05-12-2020 Postop follow up visit related to original px Ceci Che Work Phone: [facility] Comment on above: S/P excision of gang lion cyst (Primary Dx) Start: 04-28-2020 End: 04-28-2020 Subsequent hospital visit by physician Gerri Hicks Work Phone: [facility] Comment on above: Ganglion of right wr ist Start: 04-07-2020 End: 04-07-2020 Patient encounter procedure Ceci Che Work Phone: [facility] Comment on above: Ganglion cyst (Prima ry Dx) Start: 03-10-2020 End: 03-10-2020 Subsequent hospital visit by physician Ceci Che Work Phone: [facility] Comment on above: Arrived Start: 03-10-2020 End: 03-10-2020 Office outpatient new 45 minutes Ceci Che Work Phone: [facility] Comment on above: Ganglion cyst of wri st, right (Primary Dx) Start: 02-04-2020 End: 02-04-2020 Initial preventive medicine new pt age 18-39yrs Parmjit Enrique Work Phone: [facility] Comment on above: Routine general medi kayli examination at a health care facility (Primary Dx); Hx of cold sores Start: 02-01-2020 End: 02-01-2020 Initial preventive medicine new pt age 18-39yrs Sandra Mchugh Work Phone: [facility] [employer] OFF[employer]IAL Comment on above: Encounter for gyneco logical examination without abnormal finding (Primary Dx); Screening for cervical cancer; Screening for STDs (sexually transmitted diseases); Encounter for surveillance of contraceptive pills Start: 12-17-2018 Patient encounter procedure Facility:[id number] Start: 12-16-2018 End: 12-19-2018 Evaluation and management of inpatient Nodr No Doctor Assigned Facility:[facility] Start: 12-16-2018 End: 12-17-2018 Patient encounter procedure Love Barnhart Facility[facility] Start: 12-16-2018 Patient encounter procedure Facility:[id number] Start: 12-15-2018 End: 12-15-2018 Emergency department patient visit DANIELA WALTON [facility] Start: 08-21-2018 Encounter for genera l adult medical examination without abnormal findings [facility] Start: 08-21-2018 End: 08-21-2018 Patient encounter procedure MADY FARRELL [facility] Start: 08-21-2018 End: 08-21-2018 Initial preventive medicine new pt age 18-39yrs Mady Farrell Work Phone: [facility] Comment on above: Oral herpes simplex infection; Impetigo; Well adult exam; Nasal septal deviation Start: 08-12-2018 Patient encounter procedure [facility] Encounter for genera l adult medical examination without abnormal findings [facility] Procedures Date Procedure Procedure Detail Performing Clinician Start: 05-27-[address] Laureen Rosas Work Phone: Start: 01-08-2024 Group B Streptococcus Culture No Primary Care Physician Start: 01-08-2024 Ultrasound scan for growth No Primary Care Physician Start: 01-02-2024 Urine culture No Primary Care Physician Start: 12-11-2023 Genital Culture No Primary Care Physician Start: 12-11-2023 Investigation of transfusion reaction No Primary Care Physician Start: 12-11-2023 Urine culture No Primary Care Physician Start: 09-11-2023 anatomy study No Primary Care Physician Start: 07-11-2023 Viral antigen assay No Primary Care Physician Start: 06-24-[address] Fanta dempsey Work Phone: Start: 02-26-2021 Culture bacterial quanttative colony count [...] blood count with white cell differential, automated Sandra Mchugh Work Phone: Start: 11-28-2020 GLUCOSE POST LOADING Sandra Mchugh Work Phone: Start: 11-28-2020 Syphilis test non-treponemal antibody qual Sandra Mchugh Work Phone: Start: 11-24-2020 Complete blood count with white cell differential, automated Bartolo Zheng Work Phone: Start: 11-24-2020 Comprehensive metabolic panel [...] 10-24-2020 Narrative [Interpretation] Study observation general US Sandra Mchugh Work Phone: Start: 06-30-2020 Narrative [Interpretation] Study observation general US Mady Amor Work Phone: Start: 06-24-2020 Culture bacterial [...] Work Phone: Start: 06-24-2020 Antibody varicella-zoster Mady Benoit Zuleyma Work Phone: Start: 06-24-2020 Complete blood count with white cell differential, automated Mady Amor Work Phone: Start: 06-24-2020 Syphilis test non-treponemal antibody qual Mady Amor Work Phone: Start: 06-14-2020 Choriogonadotropin ( test) [Presence] in Urine Mady Benoit Zuleyma Work Phone: Start: 04-28-2020 ORDERS (SCAN) Historical Provider Start: 04-28-2020 PRE OP CHECKLIST Historical Provider Start: 04-28-2020 End: 04-28-2020 Exc fabby/vasc mal sft tiss hand/fngr subq <1.5cm Gerri Hicks Work Phone: Start: 04-28-2020 Iadna nos amplified probe tq each organism Tyrell Mccloud Work Phone: Start: 04-28-2020 Choriogonadotropin ( test) [Presence] in Urine Tyrell Mccloud Work Phone: Start: 02-01-2020 PAP IG, CT-NG, RFX HPV ASCU Sandra Mchugh Work Phone: Group B Streptococcus Culture Urine culture Viral antigen assay Plan of Treatment Date Care Activity Detail Author Start: 12-12-2030 Tetanus vaccination [facility] Start: 01-15-2024 Patient discharge [facility] Start: 01-15-2024 [facility] Start: 01-14-2024 Documentation procedure [facility] Start: 01-14-2024 Administration of medication [facility] Start: 01-14-2024 Application of ice collar, cap or bag [facility] Start: 01-14-2024 Catheterization of vein [facility] Start: 01-14-2024 Introduction of urin vicente catheter [facility] Start: 01-14-2024 Measuring intake and output [facility] Start: 01-14-2024 Notification of physician [facility] Start: 01-14-2024 Procedure discontinued [facility] Start: 01-14-2024 Provision of activit y privileges [facility] Start: 01-14-2024 Vital signs measurements [facility] Start: 01-14-2024 End: 01-14-2024 [facility] Start: 01-14-2024 Consultation [facility] Start: 01-13-2024 Admission procedure [facility] Start: 01-13-2024 Verification routine [facility] Start: 01-02-2024 Nonstress test [facility] Start: 01-02-2024 Obstetric monitoring [facility] Start: 01-02-2024 Vital signs measurements [facility] Start: 01-02-2024 [facility] Start: 01-02-2024 Patient discharge [facility] Start: 01-02-2024 [facility] Start: 06-24-2023 Liquid based cervica l cytology screening [facility] Start: 06-22-2022 Patient discharge [facility] Work Phone: Start: 06-22-2022 Consultation [facility] Work Phone: Start: 06-21-2022 Administration of medication [facility] Work Phone: Start: 06-21-2022 Application of ice collar, cap or bag [facility] Work Phone: Start: 06-21-2022 Catheterization of vein [facility] Work Phone: Start: 06-21-2022 Introduction of urin vicente catheter [facility] Work Phone: Start: 06-21-2022 Measuring intake and output [facility] Work Phone: Start: 06-21-2022 Notification of physician [facility] Work Phone: Start: 06-21-2022 Procedure discontinued [facility] Work Phone: Start: 06-21-2022 Provision of activit y privileges [facility] Work Phone: Start: 06-21-2022 Vital signs measurements [facility] Work Phone: Start: 06-21-2022 [facility] Work Phone: Start: 06-21-2022 Admission procedure [facility] Work Phone: Start: 06-09-2022 Patient discharge [facility] Work Phone: Start: 06-07-2022 Nonstress test [facility] Work Phone: Start: 06-07-2022 Obstetric monitoring [facility] Work Phone: Start: 06-07-2022 Vital signs measurements [facility] Work Phone: Start: 06-07-2022 [facility] Work Phone: Start: 06-07-2022 Iv infusion hydratio n each additional hour HYDRATE IV INFUSION ADD-ON [facility] Work Phone: Start: 06-07-2022 Iv infusion hydratio n initial 31 min-1 hour [facility]ATION [facility] Work Phone: Start: 06-07-2022 Patient discharge [facility] Work Phone: Start: 05-21-2022 Tetanus vaccination TETANUS EVERY 10 YR [facility] Start: 04-23-2022 Nonstress test [facility] Work Phone: Start: 04-23-2022 End: 04-23-2022 [facility] Work Phone: Start: 04-23-2022 Obstetric monitoring [facility] Work Phone: Start: 04-23-2022 Vital signs measurements [facility] Work Phone: Start: 04-23-2022 Iv infusion hydratio n each additional hour HYDRATE IV INFUSION ADD-ON [facility] Work Phone: Start: 04-23-2022 Iv infusion hydratio n initial 31 min-1 hour HYDRATION IV INFUSION [facility] Work Phone: Start: 04-23-2022 Catheterization of vein [facility] Work Phone: Start: 04-23-2022 Patient discharge [facility] Work Phone: Start: 02-08-2022 GONORRHEA SCREEN GONORRHEA SCREEN [facility] Start: 02-08-2022 Screening for Chlamy galo trachomatis CHLAMYDIA SCREEN [facility] Start: 06-30-2021 GONORRHEA SCREEN GONORRHEA SCREEN [facility] Start: 06-30-2021 Screening for Chlamy galo trachomatis CHLAMYDIA SCREEN [facility] Start: 06-07-2021 Influenza vaccination INFLUENZ A VACCINE (Season Ended) [facility] Start: 02-09-2021 End: 02-09-2021 Follow-up encounter 02/09/2021 Follow Up Visit FIRE OFFICIAL Raymon Madera MD [address] [place] [address] [facility] FI[employer] OFF[employer] Start: 02-02-2021 End: 02-02-2022 US OB LIMITED/NERISSA [facility] Comment on above: Expected: 02/02/2021 , Expires: 02/02/2022 1 Occurrences starti ng 02/02/2021 until 02/02/2021 Start: 02-02-2021 End: 02-02-2021 Follow-up encounter 02/02/2021 Follow Up Visit FIRE OFFICIAL Rosita Chacon APRN-WHITE SPOOLER [id number] [place] [address] [facility] [employer] Start: 01-31-2021 Screening for malign ant neoplasm of cervix CERVICAL CANCER SCREENING DISCUSSION [facility] Start: 01-26-2021 End: 01-26-2021 Follow Up Visit 01/26/2021 Follow Up Visit FIRE OFFICIAL Mady Amor MD [address] [place] [address] [facility] [employer] Start: 01-12-2021 End: 01-12-2021 Follow Up Visit 01/12/2021 Follow Up Visit FIRE OFFICIAL Rosita Chacon WHITE SPOOLER-WHITE SPOOLER [id number] [place] [address] [facility] [employer] OFF[employer] Start: 12-26-2020 End: 12-26-2020 Follow Up Visit 12/26/2020 Follow Up Visit FIRE OFFICIAL Mady Amor MD [address] [place] [phone] [facility] [employer] OFF[employer] Start: 12-12-2020 End: 12-12-2020 Follow Up Visit 12/12/2020 Follow Up Visit FIRE OFFICIAL Rosita Chacon, WHITE SPOOLER-WHITE SPOOLER [id number] [place] [id number] [facility] [employer] Start: 12-07-2020 End: 12-07-2020 Appointment 12/07/2020 Appointment Ultrasound Raymon Madera MD [address] [place] [phone] [facility] Start: 11-28-2020 End: 11-28-2020 Follow Up Visit 11/28/2020 Follow Up Visit FIRE OFFICIAL Sandra Mchugh, WHITE SPOOLER-WHITE SPOOLER [address] [phone] [facility] [employer] Start: 10-24-2020 End: 10-24-2020 Appointment [facility] Start: 10-03-2020 End: 10-03-2020 Appointment [facility] Start: 09-05-2020 End: 09-05-2020 Appointment [facility] Start: 09-05-2020 End: 09-05-2021 TSH W/FT4 REFLEX TSH W/FT4 REFLEX Lab Routine Alopecia Expected: 09/05/2020, Expires: 09/05/2021 [facility] Comment on above: Expected: 09/05/2020 , Expires: 09/05/2021 Start: 08-01-2020 End: 08-01-2020 Follow Up Visit 08/01/2020 Follow Up Visit FIRE OFFICIAL Raymon Madera MD [address] [place] [id number] [phone] [facility] FI[employer] OFFIC[employer] Start: 06-30-2020 End: 06-30-2021 CHLAMYDIA/GONOCOCCUS, JIMMY CHLAMYDIA/GONOCOCCUS, JIMMY Microbiology Routine Encounter for supervision of normal first in first trimester 6 weeks gestation of Expected: 06/30/2020, Expires: 06/30/2021 [facility] Comment on above: Expected: 06/30/2020 , Expires: 06/30/2021 Start: 06-30-2020 End: 06-30-2020 Appointment [facility] Start: 06-24-2020 End: 06-24-2021 Narrative [Interpretation] Study observation general US US OB DATING ABDOMINAL < 14WEEKS Imaging Routine 10 weeks gestation of Expected: 06/24/2020, Expires: 06/24/2021 [facility] Comment on above: Expected: 06/24/2020 , Expires: 06/24/2021 Start: 06-24-2020 End: 06-24-2020 Clinical Support Encounter 06/24/2020 Clinical Support Encounter FIRE OFFICIAL Raymon Madera MD [address] [id number] [phone] [facility] FIRE OFFICIAL Start: 06-07-2020 Influenza vaccination [facility] Start: 05-19-2020 End: 05-19-2020 Office Visit 05/19/2020 Office Visit Orthopaedics Ceci Che PA-C [address] [place] [address] [phone] [facility] Start: 05-12-2020 End: 05-12-2020 Office Visit 05/12/2020 Office Visit Orthopaedics Ceci Che PA-C [address] [place] [address] [facility] Start: 04-28-2020 End: 04-28-2020 Procedure Pass [facility] Comment on above: Ganglion of right wr ist EXCISION SOFT TISSUE FINGER HAND Start: 04-25-2020 End: 04-25-2020 Lab Encounter 04/25/2020 Lab Encounter Clinical Pathology/Laboratory Medicine Gerri Hicks MD [address] [place] [address] [phone] [facility] Start: 04-07-2020 End: 04-07-2020 Office Visit 04/07/2020 Office Visit Orthopaedics Ceci Che PA-C [address] [place] [address] [phone] [facility] Orthopedics & Sports Medicine Start: 04-04-2020 End: 04-04-2020 Pre-Operative Nurse Assessment 04/04/2020 Pre-Operative Nurse Assessment Multispecialty [facility] Pre Admission Testing Start: 03-10-2020 End: 04-06-2020 Radiography of hand [facility] Comment on above: Expected: 03/10/2020 , Expires: 04/06/2020 1 Occurrences starti ng 03/10/2020 until 03/10/2020 Start: 02-04-2020 End: 02-04-2020 Office Visit 02/04/2020 Office Visit Family Medicine Parmjit Enrique MD [address] [place] [address] [phone] [facility] FAMILY [facility]IC[facility] Start: 02-01-2020 End: 01-31-2021 [facility]-BUSINESS LINE MANAGER, LIQUID BASED [facility] CYT[facility]-BUSINESS LINE MANAGER, LIQUID BASED Cytology Routine Screening for cervical cancer Screening for STDs (sexually transmitted diseases) Expected: 02/01/2020, Expires: 01/31/2021 [facility] Comment on above: Expected: 02/01/2020 , Expires: 01/31/2021 Start: 2018 Screening for malign ant neoplasm of cervix CERVICAL CANCER SCREENING DISCUSSION [facility] Start: 2016 Third diphtheria, te tanus and acellular pertussis (DTaP) vaccination TDAP (ADULT) [facility] Start: 2015 Tetanus vaccination TETANUS [facility] Start: 2013 COVID-19 VACCINE (1) COVID-19 VACCIN E (1) [facility] Start: 2013 Screening for Chlamy galo trachomatis CHLAMYDIA SCREEN [facility] Start: 2012 HIV screening HIV SCREENING DISCUSSION [facility] Start: 2012 Vaccination for josh n papillomavirus HPV VACCINES (1 - Female 3-dose series) [facility] Start: 2010 HIV screening HIV SCREENING DISCUSSION [facility] Start: 2009 COVID-19 VACCINE (1) COVID-19 VACCIN E (1) [facility] Start: 2008 Vaccination for josh n papillomavirus [facility] Start: 2002 COVID-19 VACCINE (1) COVID-19 VACCIN E (1) [facility] Start: 1997 GONORRHEA SCREEN GONORRHEA SCREEN AV [facility] Start: 1997 Screening for malign ant neoplasm of cervix [facility] Bacteria identified Cx Nom (U) [facility] BETA STREP, VAGINAL SCREEN BETA STREP, VAGINAL SCREEN Microbiology Routine 36 weeks gestation of 01/26[facility]2021 3[facility] Auto Different ial panel - Blood [facility] Chlamydia deoxyribonucleic acid detection [facility] CHLAMYDIA/GONOCOCCUS, JIMMY CHLAMY GALO/GONOCOCCUS, JIMMY Microbiology STAT 02/08/2021 10:30 PM EDT [facility] Complete blood count with white cell differential, automated CBC, EDIF, PLATELET Lab Routine 28 weeks gestation of 11/28/2020 4:02 PM EST [facility] anatomy study [facility] Group B Streptococcu s Culture Group B Streptococcus Culture [facility] Work Phone: HEPATITIS B SURFACE ANTIGEN HEPATITIS B SURFACE ANTIGEN Lab Routine 10 weeks gestation of 06/24/2020 5:36 PM [facility] Hepatitis C antibody measurement [facility] PAP IG, CT-NG, RFX H PV ASCU PAP IG, CT-NG, RFX HPV ASCU LAB SEND OUTS Routine 02/01/2020 10:54 AM [facility] Patient Education Kick Counts ED False Labor OB Triage: Return to Hospital or Notify Physician if you Experience: [facility] Work Phone: Patient referral [facility] Work Phone: Procedure [facility] Radiography of hand XR HAND RIGH T 3+ VIEWS Imaging Routine Ganglion cyst of wrist, right 03/10/2020 10:26 AM [facility] Reagin Ab [facility]l (S[facility] Rub[facility] IgG measurement [facility] RUBELLA IMMUNE STATU S IGG ANTIBODY RUBELLA IMMUNE STATUS IGG ANTIBODY Lab Routine 10 weeks gestation of 06/24/2020 5:35 PM EDT [facility] Serologic test for syphilis [facility] T4 free measurement [facility] Thyroid stimulating hormone measurement [facility] Thyroperoxidase Ab [Units/volume] in Serum or Plasma [facility] Transvaginal obstetr ic ultrasonography [facility] Ultrasound scan for growth [facility] US OB LIMITED/NERISSA US OB LIMITED/ NERISSA Imaging Routine Uncertain lie of fetus, single or unspecified fetus 02/02/2021 2:44 PM EDT [facility] VARICELLA IGG AB (IM M STATUS) VARICELLA IGG AB (IMM STATUS) Lab Routine 10 weeks gestation of 06/24/2020 5:35 PM EDT [facility] Immunizations Immunization Date Immunization Notes Care Provider [facility] 09-03-2024 influenza, seasonal, injectable, preservative free Dr. Laureen Rasmussen MD Work Phone: [facility] 11-28-2023 tetanus toxoid, redu amish diphtheria toxoid, and acellular pertussis vaccine, adsorbed No Primary Care Physician [facility] 09-23-2023 influenza, injectabl e, quadrivalent, preservative free No Primary Care Physician [facility] 09-24-2022 influenza, injectabl e, quadrivalent, preservative free Dr. Fanta Zarate Work Phone: [facility] 09-07-2021 Covid ([employer] Bryan) [facility] 07-11-2021 influenza, injectabl e, quadrivalent, preservative free Dr. Fanta Zarate Work Phone: [facility] 07-11-2021 influenza, seasonal, injectable [facility] Work Phone: 07-11-2021 influenza, seasonal, injectable, preservative free Dr. Laureen Rasmussen MD Work Phone: [facility] 07-11-2021 Seasonal, quadrivale nt, recombinant, injectable influenza vaccine, preservative free Dr. Laureen Rasmussen MD Work Phone: [facility] 12-12-2020 diphtheria, tetanus toxoids and acellular pertussis vaccine, unspecified formulation [facility] 12-12-2020 tetanus toxoid, redu amish diphtheria toxoid, and acellular pertussis vaccine, adsorbed; Translations: [TDAP VACCINE >10YO 0.5ML IM] [facility] 12-25-2017 varicella virus vaccine [facility] 07-09-2017 meningococcal ACWY vaccine, unspecified formulation [facility] 07-09-2017 meningococcal polysaccharide (groups A, C, Y and W-135) diphtheria toxoid conjugate vaccine (MCV4P) Dr. Laureen Rasmussen MD Work Phone: [facility] 07-09-2017 varicella virus vaccine [facility] 04-14-2013 hepatitis A vaccine, pediatric/adolescent dosage, [address] Laureen Rasmussen MD Work Phone: [facility] 04-08-2013 hepatitis A vaccine, pediatric/adolescent dosage, [address] [facility] 05-21-2012 hepatitis A vaccine, pediatric/adolescent dosage, 2 dose schedule [facility] 05-21-2012 meningococcal ACWY vaccine, unspecified formulation [facility] 05-21-2012 meningococcal polysaccharide (groups A, C, Y and W-135) diphtheria toxoid conjugate vaccine (MCV4P) Dr. Laureen Rasmussen MD Work Phone: [facility] 05-21-2012 tetanus toxoid, redu amish diphtheria toxoid, and acellular pertussis vaccine, adsorbed [facility] 09-16-2009 novel [id number], preservative-free, injectable Dr. Laureen Rasmussen MD Work Phone: [facility] 06-02-2003 diphtheria, tetanus toxoids and acellular pertussis vaccine [facility] 06-02-2003 poliovirus vaccine, inactivated [facility] 06-04-2001 diphtheria, tetanus toxoids and acellular pertussis vaccine [facility] 05-08-2000 haemophilus influenz ae type b vaccine, conjugate unspecified formulation [facility] 05-08-2000 haemophilus influenz ae type b vaccine, PRP-T conjugate Dr. Laureen Rasmussen MD Work Phone: [facility] 05-08-2000 measles, mumps and rubella virus vaccine [facility] 01-15-2000 diphtheria, tetanus toxoids and acellular pertussis vaccine [facility] 01-15-2000 haemophilus influenz ae type b vaccine, conjugate unspecified formulation [facility] 01-15-2000 haemophilus influenz ae type b vaccine, PRP-T conjugate Dr. Laureen Rasmussen MD Work Phone: [facility] 01-15-2000 hepatitis B vaccine, pediatric or pediatric/adolescent dosage [facility] 01-15-2000 poliovirus vaccine, inactivated [facility] 09-20-1999 diphtheria, tetanus toxoids and acellular pertussis vaccine [facility] 09-20-1999 measles, mumps and rubella virus vaccine [facility] 09-20-1999 poliovirus vaccine, inactivated [facility] 09-20-1999 trivalent poliovirus vaccine, live, oral Dr. Laureen Rasmussen MD Work Phone: [facility] 06-01-1998 diphtheria, tetanus toxoids and acellular pertussis vaccine [facility] 06-01-1998 haemophilus influenz ae type b conjugate and Hepatitis B vaccine Dr. Laureen Rasmussen MD Work Phone: [facility] 06-01-1998 haemophilus influenz ae type b vaccine, conjugate unspecified formulation [facility] 06-01-1998 hepatitis B vaccine, pediatric or pediatric/adolescent dosage [facility] 06-01-[address], inactivated [facility] 06-01-1998 trivalent poliovirus vaccine, live, oral Dr. Laureen Rasmussen MD Work Phone: [facility] 1997 hepatitis B vaccine, pediatric or pediatric/adolescent dosage [facility] Payers Date Payer Category Payer Unknown [id number] 2020 Unknown [facility] ACCESS xxxxxxxxxxxx 2020-Present xxxxxxxxxxxx [id number] 2020 Unknown [id number] 2018 Self-pay 2018 Unknown 2017 Unknown [id number] 1997 Unknown [id number] 1997 Unknown [id number] 1997 Unknown [id number] [id number] 1997 Unknown [id number] [id number] 1997 Unknown [id number] [id number] 1997 Unknown [id number] [id number] Unknown COMMERCIAL COMME RCIAL MISCELLANEOUS Effective for all dates xxxxxx [id number] Unknown [id number] Unknown [id number] Unknown [id number] Unknown [id number] [id number] Unknown [id number] [id number] Unknown [id number] [id number] Unknown [id number] [id number] Unknown [id number] [id number] Unknown [id number] Social History Date Type Detail Facility Start: 11-09-2018 End: 05-14-2025 Tobacco smoking status NHIS Never smoker [facility] Start: 08-12-2018 Alcohol Comment wine-occassions [facility] Start: 1995 Sex Assigned At Not on file O [facility] Start: 02-01-2020 End: 02-04-2020 Alcohol intake Current drinker of alcohol (finding) [facility] Start: 02-04-2020 End: 10-24-2020 History SDOH Alcohol Std Drinks 1 [facility] Start: 02-04-2020 History SDOH Alcohol Binge 5 [facility] Start: 02-01-2020 Alcohol Comment occ [facility] Exposure to SARS-CoV -2 (event) Not sure [facility] Start: 02-01-2020 End: 03-10-2020 Tobacco use and exposure Never used [facility] Start: 04-04-2020 End: 10-24-2020 History SDOH Alcohol Frequency 4 [facility] Start: 04-04-2020 End: 10-24-2020 History SDOH Alcohol Binge 99 [facility] Exposure to SARS-CoV -2 (event) Yes [facility] Start: 04-28-2020 End: 10-24-2020 History SDOH IPV Fear 2 [facility] Start: 06-14-2020 End: 08-24-2021 Alcohol intake Ex-drinker (finding) [facility] Start: 06-14-2020 End: 10-24-2020 History SDOH Social Connections Living 3 [facility] Start: 04-29-2020 [facility] Start: 1995 Sex Assigned At Female [facility] Start: 06-21-2022 End: 01-13-2024 Tobacco smoking status NHIS Unknown if ever smoked [facility] Goals Date Patient Goal Desired Activity /State Functional Status Date Assessment Result Facility 06-22-2022 Functional status Activity Ability Indepvijay castillo [facility] Work Phone: Mental Status Date Assessment Result Facility 06-22-2022 Cognitive function Appropriate;Cooperjavier linares [facility] Work Phone: Clinical Notes 01-26-2021 to 05-27-2025 Note Date & Type Note Facility 05-27-2025 Evaluation note Diagnosis Onset Date Resolution Luis Felipe's disease acute 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 2:53pm History of depression, currently acute May 27 2:53pm History of shoulder dystocia in prior , currently acute May 27 2:53pm Hx of oligohydramnios in prior , currently acute May 27, 2025 2:53pm acute May 27, 2 025 2:53pm Supervision of high-risk acute May 27 2:53pm [facility] Work Phone: 1(168) 440-165208-21-2025 [facility] [address], [address] [place] [address] OFFICE VISIT Date of Service: 05/27/25 MR#: [id number] Acct: [id number] Name: NAYELI HERNANDEZ Rep #: [id number] : 1995 Provider: CHICO Virk Age/Sex: 29/F Location: [facility] Status: Signed Intake Vital Signs 11/18/24 08:47 04/27/25 14:36 05/27/25 14:55 Height 5 ft 2 in 5 ft 2 in 5 ft 2 in Weight: 164 lb BMI 29.9 BP 106/71 Intake Visit Reasons: *EST* NOB LMP 03/20, PRANAY 12/25 Chief Complaint: New OB Dipper And Drier Required: No Is patient in pain?: No Allergies No Known Allergies Allergy (Verified 05/27/25 14:54) Medications ?Medication ?Instructions ?Recorded ?Confirmed ?Type [id number] 1 mg 1 tab PO DAILY pregna ncy 04/23/22 05/27/25 History tablet valacyclovir 1 gram tablet 2,000 mg (2 x 1 gram) PO BI D PRN 03/24/25 05/27/25 Rx (Valtrex) cold sore #4 tabs Last Menstrual Period: 03/20/25 PFSH PFSH Medical History History of shoulder dystocia Anxiety depression Seasonal allergies Family history of autistic disorder Surgical History [place]ow teeth extracted History of surgery Family History Grandmother Breast cancer, Onset Age: 65 maternal Aunt Breast cancer, Onset Age: 60 Maternal Sister Thyroid disorder Mother Thyroid disorder Hypertension Sister Thyroid disorder Father Hypertension Social History adopted: No household members: spouse and children number of children: 3 current occupational status: employed 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 current occupational exposures/hazards: No pets and animals: Yes pets and animals: dog(s) history of recent travel: Yes ( - April 2025) out of state: Yes out of country: No sexually active: Yes Smoking Status: Never smoker second hand exposure: No alcohol intake: current alcohol intake frequency: a few times a month details: Not while substance use type: does not use well-balanced diet: daily or most days caffeine: Yes Type: carbonated beverages Number of servings: 1 eating out: 1-3 times/week during the past year weight has: remained stable what type of physical activity do you participate in: walking frequency: 1-2 times per week duration: 15-30 minutes/day tigre/baptism: Adventist seatbelt use: always do you feel safe at home: Yes 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 Date Name GA/Weeks Outcome Route Bth Weight Infant Gen Labor Lgth Anesthesia Del Locatn Provider FOB 02/12/21 Suyapa 39 live - full term 7#.04oz Female epidural [facility] Dr.Bailey Santos 06/21/22 [place] 39 live - full term 7#11oz Female ep idural [employer] Dr. Daniela Santos 01/14/24 Merelyn 37 live - full term 6lbs 11oz Female epidural [employer] JV Ericka Delivery Date: 02/12/21 Last Updated by: Huma Dietrich IOL- failure to progress, head stuck on hip Delivery Date: 06/21/22 Last Updated by: Huma Dietrich IOL-early labor 2 wks, shoulder dystocia Delivery Date: 01/14/24 Last Updated by: Beryl Kamara RN IOL 37 oligo HPI *EST* NOB LMP 03/20, PRANAY 12/25 Details: NAYELI HERNANDEZ is a 29 year old who presents for New OB visit. OB Visit PRANAY Calculator Estimated Delivery Date Method Current WG Current Estimate 01/03/26 Ultrasound #1 8w 3d Other Estimates 12/25/25 LMP (Certain) 9w 5d Estimated Due Date: 12/25/25 Expected Delivery Route/Plan Labor Preferences- CB/BF classes: [] labor support person: [] labor intervention preferences: [] pain management options preferred: [] cut cord/dad catch: [] : [] PP control planned: [] discussed possible routes of delivery and associated risks: [] special requests: [] Specific Issue/Plans Covid status: [] Flu vaccine: [] Tdap vaccine: [] Rhogam: [] LARC form signed: [] Problem list reviewed and updated with the most current plan of care details and appropriate ordersplaced. Relevant counseling for the gestational age provided. Continue routine care and follow up unless otherwise noted in visit notes/problem list details Initial Weight: 164 lb Date -?-?-?-?-?-?-?-?-?-?-?-?- EGA Weight BP Urine Prot -?-?-?-?-?-?-?-?-?-?-?-?- Glucose FHR FuHt Pres Dilation -?-?-?-?-?-?-?-?-?-?-?-?- Effaced St Visit Note 05/27/25 -?-?-?-?-?-?-?-?-?-?-?-?- 8w 3d 164 lb (+0 oz) 106/71 -?-?-?-?-?-?-?-?-?-?-?-?- 174 -?-?-?-?-?-?-?-?-?-?-?-?- KW- CRL 1.94cm a nd not cons with dates PRANAY changed. declines NIPT Menstrual History Last Menstrual Period: 03/20/25 Reported LMP: definite Normal amount/duration: No (7day late, spotting, super heavy, very clotty, very painful (38day cycle)) Frequency in days: 30 On hormonal BC at conception: No hCG+: 04/28/25 Antepartum Record Genetic Screening: Congenital Heart Defect: Other, Neural Tube Defect: Other, Hemoglobinopathy Or Carrier: Other, Cystic Fibrosis: Other, Chromosome Abnormality: Other, Spenser-Sachs: Other, Hemophilia: Other, Intellectual Disability/Autism: Patient (Nephew), Recurrent Loss/Stillbirth: Other, Other Structural Defect: Other, Other Genetic Disease: Other and Maternal Metabolic Disorder:Patient (Sister with GDM) Infection History: Live with someone with TB or Exposed to TB: No, Patient or Partner has history of Genital Herpes: No, Rash or Viral illness since last mentrual period: No, Prior GBS-Infected child: Yes (All 3), History of STD: No, HIV Infection: No, History of Hepatitis: No, Recent travel outside of [place]: No, Concern for hepatitis exposure: No, Varicella immune: Yes (Had vaccine & chicken pox ) and Covid Vaccinated: Yes (Bryan & Bryan - no boosters) Medical History Medical History: Positive: Auto-immune disorder (Luis Felipe's - ), Psychiatric (Anxiety -stable, no meds), Depression/ depression (PPD - stable, no meds), Seasonal allergies and Operations/hospitalizations (See surg list) and Negative: Diabetes, Hypertension, Heart disease, Kidney disease/UTI, Neurologic/epilepsy, Hepatitis/liver disease, Varicosities/phlebitis, Thyroid dysfunction, Trauma/domestic violence, History of blood transfusions (O+), D (Rh) Sensitized, Pulmonary (e.g.,TB,Asthma), Drug/latex allergies/reactions, Breast, Picture Engraver surgery, Anesthetic complications, History of abnormal pap, Uterine anomaly/judy, Infertility, Anti-retroviral treatment, Relevant family history and Other ACOG First Trimester First Trimester: Desire for , Alcohol, Tobacco Cessation, Illicit/Recreational Drug/Substance Use, Intimate Partner Violence, Barriers to care, Unstable Housing, Communication Barriers, Environmental/Work Hazards, Anticipated Course of Care, Toxoplasmosis Precations, Use of Any med ications, Sexual activity, Exercise, Dental Care, Sauna/Hot tub use, Seat Belt use, Childbirth classes/Hospital facilities, Travel, Indications for Ultrasound and Screening for Aneuploidy Second Trimester Second Trimester: Signs and Symptoms of Labor, Selecting a care provider, Reproductive Life Planning & Contreception, Care Planning, Depression/Anxiety and Intimate Partner Violence; Discussed Tobacco Cessation Third Trimester Third Trimester: Pain Management Plans, Labor support person(s), Immediate Larc, Movement Monitoring, Signs and Symptoms of Preeclampsia and Education ROS Const Reports system reviewed and no additional complaints, except as documented, Denies fatigue, Denies headache(s) and Denies lethargy ENT Denies headache(s) Card Reports system reviewed and no additional complaints, except as documented Resp Reports system reviewed and no additional complaints, except as documented GI Reports system reviewed and no additional complaints, except as documented, Denies abdominal pain, Denies constipation, Denies cramping, Denies diarrhea and Denies dyspepsia Reports system reviewed and no additional complaints, except as documented, Denies abnormal vaginalbleeding, Denies difficulty voiding, Denies dyspareunia and Denies dysuria Musc Reports system reviewed and no additional complaints, except as documented Skin/Breast Reports system reviewed and no additional complaints, except as documented Neuro Yes system reviewed and no additional complaints, except as documented and No headache(s) Psych Reports system reviewed and no additional complaints, except as documented, Denies anhedonia and Denies anxiety Endo Reports system reviewed and no additional complaints, except as documented and Denies fatigue Exam Const General: cooperative, healthy appearing and comfortable Neck Neck: normal visual inspection and full ROM Chest Chest palpation & inspection: normal inspection of the chest Breast inspection: normal inspection of the breasts and normal inspection of the axillae Breast palpation: normal palpation of the breasts and normal palpation of the axillae Resp Effort & Inspection: normal respiratory effort and able to speak in complete sentences GI Inspection: normal to inspection Palpation: soft External Female Exam: normal external appearance and normal appearance of the urethra Urethra: normal appearance of the urethra Skin General: no rashes or lesions noted Neuro General: patient alert, patient awake and patient oriented x3 Extrem General: normal to inspection and full ROM Psych Appearance: grossly normal and well kempt Mental Status: mental status grossly normal Mood: congruent mood Affect: normal affect Speech and Movement: speech and movement normal Thought Process: normal Thought Content: normal Coding Level of Care Code Off vis,est,level 4 Diagnoses History of depression, currently O99.891; Z86.59 Supervision of high-risk O09.90 9 weeks gestation of Z3A.09 Weeks of gestation: 9 weeks History of shoulder dystocia in prior , currently O09.299 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 Hx of oligohydramnios in prior , currently O09.299 Assessment and Plan Assessment and Plan (1) History of depression, currently : Status: Acute Comment: Not on meds; stable (2) Supervision of high-risk : Status: Acute Comment: , PRANAY 12/25/25, PC: [facility] Dale & Gissel, : Ericka (3) : Status: Acute Qualifiers: Weeks of gestation: 9 weeks Qualified Code(s): Z3A.09 - 9 weeks gestation of Comment: Declines genetic/carrier testing (4) History of shoulder dystocia in prior , currently : Status: Acute Comment: 2nd : 7lbs 11oz, last delivery was fine (5) Luis Felipe's disease: Status: Acute Comment: - self resolved/no tx; Thyroid labs ordered w/NOB (6) Hx of oligohydramnios in prior , currently : Status: Acute Comment: growth US 36 Comments Comments: Patient oriented to practice and discussed care expectations and screenings. ACOG book offered to patient. Discussed routine and specially indicated labs if needed- patient consents to testing. See problem list details for plan information. Optional screening including maternal carrier screenings, neural tube defect screening, genetic screening options including quad screen, nuchal translucency, sequential screening, and NIPT screening offered to patient and patient chose: declines 05/27/25 1520 s CNM> Date _ Juliet Virk CNM Cosigner Signature: Date (if applicable) CC: ~ [facility]08-21-2025 Progress note Author Juliet Virk [facility] Note Date/Time May 27, 2025 3: 20pm [facility] [address] [place] [address], [address] [place] [address] OFFICE VISIT Date of Service: 05/27/25 MR#: [id number] Acct: [id number] Name: NAYELI HERNANDEZ Rep #: [id number] : 1995 Provider: CHICO Virk Age/Sex: 29/F Location: [facility] [place] Status: Signed Intake Vital Signs 11/18/24 08:47 04/27/25 14:36 05/27/25 14:55 Height 5 ft 2 in 5 ft 2 in 5 ft 2 in Weight: 164 lb BMI 29.9 BP 106/71 Intake Visit Reasons: *EST* NOB LMP 03/20, PRANAY 12/25 Chief Complaint: New OB Dipper And Drier Required: No Is patient in pain?: No Allergies No Known Allergies Allergy (Verified 05/27/25 14:54) Medications ?Medication ?Instructions ?Recorded ?Confirmed ?Type oeqcfxlb-rzf-Oq-FA 1 mg 1 tab PO DAILY pregna ncy 04/23/22 05/27/25 History tablet valacyclovir 1 gram tablet 2,000 mg (2 x 1 gram) PO BI D PRN 03/24/25 05/27/25 Rx (Valtrex) cold sore #4 tabs Last Menstrual Period: 03/20/25 PFSH PFSH Medical History History of shoulder dystocia Anxiety depression Seasonal allergies Family history of autistic disorder Surgical History Tresckow teeth extracted History of surgery Family History Grandmother Breast cancer, Onset Age: 65 maternal Aunt Breast cancer, Onset Age: 60 Maternal Sister Thyroid disorder Mother Thyroid disorder Hypertension Sister Thyroid disorder Father Hypertension Social History adopted: No household members: spouse and children number of children: 3 current occupational status: employed 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 & [employer] current occupational exposures/hazards: No pets and animals: Yes pets and animals: dog(s) history of recent travel: Yes ( - April 2025) out of state: Yes out of country: No sexually active: Yes Smoking Status: Never smoker second hand exposure: No alcohol intake: current alcohol intake frequency: a few times a month details: Not while substance use type: does not use well-balanced diet: daily or most days caffeine: Yes Type: carbonated beverages Number of servings: 1 eating out: 1-3 times/week during the past year weight has: remained stable what type of physical activity do you participate in: walking frequency: 1-2 times per week duration: 15-30 minutes/day tigre/baptism: Adventist seatbelt use: always do you feel safe at home: Yes 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 Date Name GA/Weeks Outcome Route Bth Weight Infant Gen Labor Lgth Anesthesia Del Locatn Provider FOB 02/12/21 Suyapa 39 live - full term 7#.04oz Female epidural [facility] Dr.Bailey Santos 06/21/22 Aurora 39 live - full term 7#11oz Female ep idural [employer] Dr. Daniela Santos 01/14/24 Merelyn 37 live - full term 6lbs 11oz Female epidural [employer] JV Ericka Delivery Date: 02/12/21 Last Updated by: Huma Dietrich IOL- failure to progress, head stuck on hip Delivery Date: 06/21/22 Last Updated by: Huma Dietrich IOL-early labor 2 wks, shoulder dystocia Delivery Date: 01/14/24 Last Updated by: Beryl Kamara RN IOL 37 oligo HPI *EST* NOB LMP 03/20, PRANAY 12/25 Details: NAYELI HERNANDEZ is a 29 year old who presents for New OB visit. OB Visit PRANAY Calculator Estimated Delivery Date Method Current WG Current Estimate 01/03/26 Ultrasound #1 8w 3d Other Estimates 12/25/25 LMP (Certain) 9w 5d Estimated Due Date: 12/25/25 Expected Delivery Route/Plan Labor Preferences- CB/BF classes: [] labor support person: [] labor intervention preferences: [] pain management options preferred: [] cut cord/dad catch: [] : [] PP control planned: [] discussed possible routes of delivery and associated risks: [] special requests: [] Specific Issue/Plans Covid status: [] Flu vaccine: [] Tdap vaccine: [] Rhogam: [] LARC form signed: [] Problem list reviewed and updated with the most current plan of care details and appropriate orders placed. Relevant counseling for the gestational age provided. Continue routine care and follow up unless otherwise noted in visit notes/problem list details Initial Weight: 164 lb Date -?-?-?-?-?-?-?-?-?-?-?-?- EGA Weight BP Urine Prot -?-?-?-?-?-?-?-?-?-?-?-?- Glucose FHR FuHt Pres Dilation -?-?-?-?-?-?-?-?-?-?-?-?- Effaced St Visit Note 05/27/25 -?-?-?-?-?-?-?-?-?-?-?-?- 8w 3d 164 lb (+0 oz) 106/71 -?-?-?-?-?-?-?-?-?-?-?-?- 174 -?-?-?-?-?-?-?-?-?-?-?-?- KW- CRL 1.94cm a nd not cons with dates PRANAY changed. declines NIPT Menstrual History Last Menstrual Period: 03/20/25 Reported LMP: definite Normal amount/duration: No (7day late, spotting, super heavy, very clotty, very painful (38day cycle)) Frequency in days: 30 On hormonal BC at conception: No hCG+: 04/28/25 Antepartum Record Genetic Screening: Congenital Heart Defect: Other, Neural Tube Defect: Other, Hemoglobinopathy Or Carrier: Other, Cystic Fibrosis: Other, Chromosome Abnormality: Other, Spenser-Sachs: Other, Hemophilia: Other, Intellectual Disability/Autism: Patient (Nephew), Recurrent Loss/Stillbirth: Other, Other Structural Defect: Other, Other Genetic Disease: Other and Maternal Metabolic Disorder: Patient (Sister with GDM) Infection History: Live with someone with TB or Exposed to TB: No, Patient or Partner has history of Genital Herpes: No, Rash or Viral illness since last mentrual period: No, Prior GBS-Infected child: Yes (All 3), History of STD: No, HIV Infection: No, History of Hepatitis: No, Recent travel outside of [place]: No, Concern for hepatitis exposure: No, Varicella immune: Yes (Had vaccine & chicken pox ) and Covid Vaccinated: Yes (Bryan & Bryan - no boosters) Medical History Medical History: Positive: Auto-immune disorder (Luis Felipe's - ), Psychiatric (Anxiety - stable, no meds), Depression/ depression (PPD - stable, no meds), Seasonal allergies and Operations/hospitalizations (See surg list) and Negative: Diabetes, Hypertension, Heart disease, Kidney disease/UTI, Neurologic/epilepsy, Hepatitis/liver disease, Varicosities/phlebitis, Thyroid dysfunction, Trauma/domestic violence, History of blood transfusions (O+), D (Rh) Sensitized, Pulmonary (e.g.,TB,Asthma), Drug/latex allergies/reactions, Breast, Picture Engraver surgery, Anesthetic complications, History of abnormal pap, Uterine anomaly/judy, Infertility, Anti-retroviral treatment, Relevant family history and Other ACOG First Trimester First Trimester: Desire for , Alcohol, Tobacco Cessation, Illicit/Recreational Drug/Substance Use, Intimate Partner Violence, Barriers to care, Unstable Housing, Communication Barriers, Environmental/Work Hazards, Anticipated Course of Care, Toxoplasmosis Precations, Use of Any medications, Sexual activity, Exercise, Dental Care, Sauna/Hot tub use, Seat Belt use, Childbirth classes/Hospital facilities, Travel, Indications for Ultrasound and Screening for Aneuploidy Second Trimester Second Trimester: Signs and Symptoms of Labor, Selecting a care provider, Reproductive Life Planning & Contreception, Care Planning, Depression/Anxiety and Intimate Partner Violence; Discussed Tobacco Cessation Third Trimester Third Trimester: Pain Management Plans, Labor support person(s), Immediate Larc, Movement Monitoring, Signs and Symptoms of Preeclampsia and Education ROS Const Reports system reviewed and no additional complaints, except as documented, Denies fatigue, Denies headache(s) and Denies lethargy ENT Denies headache(s) Card Reports system reviewed and no additional complaints, except as documented Resp Reports system reviewed and no additional complaints, except as documented GI Reports system reviewed and no additional complaints, except as documented, Denies abdominal pain, Denies constipation, Denies cramping, Denies diarrhea and Denies dyspepsia Reports system reviewed and no additional complaints, except as documented, Denies abnormal vaginal bleeding, Denies difficulty voiding, Denies dyspareunia and Denies dysuria Musc Reports system reviewed and no additional complaints, except as documented Skin/Breast Reports system reviewed and no additional complaints, except as documented Neuro Yes system reviewed and no additional complaints, except as documented and No headache(s) Psych Reports system reviewed and no additional complaints, except as documented, Denies anhedonia and Denies anxiety Endo Reports system reviewed and no additional complaints, except as documented and Denies fatigue Exam Const General: cooperative, healthy appearing and comfortable Neck Neck: normal visual inspection and full ROM Chest Chest palpation & inspection: normal inspection of the chest Breast inspection: normal inspection of the breasts and normal inspection of the axillae Breast palpation: normal palpation of the breasts and normal palpation of the axillae Resp Effort & Inspection: normal respiratory effort and able to speak in complete sentences GI Inspection: normal to inspection Palpation: soft External Female Exam: normal external appearance and normal appearance of the urethra Urethra: normal appearance of the urethra Skin General: no rashes or lesions noted Neuro General: patient alert, patient awake and patient oriented x3 Extrem General: normal to inspection and full ROM Psych Appearance: grossly normal and well kempt Mental Status: mental status grossly normal Mood: congruent mood Affect: normal affect Speech and Movement: speech and movement normal Thought Process: normal Thought Content: normal Coding Level of Care Code Off vis,est,level 4 Diagnoses History of depression, currently O99.891; Z86.59 Supervision of high-risk O09.90 9 weeks gestation of Z3A.09 Weeks of gestation: 9 weeks History of shoulder dystocia in prior , currently O09.299 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 Hx of oligohydramnios in prior , currently O09.299 Assessment and Plan Assessment and Plan (1) History of depression, currently : Status: Acute Comment: Not on meds; stable (2) Supervision of high-risk : Status: Acute Comment: , PRANAY 12/25/25, PC: Aurora Dale & Gissel, : Ericka (3) : Status: Acute Qualifiers: Weeks of gestation: 9 weeks Qualified Code(s): Z3A.09 - 9 weeks gestation of Comment: Declines genetic/carrier testing (4) History of shoulder dystocia in prior , currently : Status: Acute Comment: 2nd : 7lbs 11oz, last delivery was fine (5) Luis Felipe's disease: Status: Acute Comment: - self resolved/no tx; Thyroid labs ordered w/NOB (6) Hx of oligohydramnios in prior , currently : Status: Acute Comment: growth US 36 Comments Comments: Patient oriented to practice and discussed care expectations and screenings. ACOG book offered to patient. Discussed routine and specially indicated labs if needed- patient consents to testing. See problem list details for plan information. Optional screening including maternal carrier screenings, neural tube defect screening, genetic screening options including quad screen, nuchal translucency, sequential screening, and NIPT screening offered to patient and patient chose: declines 05/27/25 1520 <Electronically signed by Juliet porter CNM> Date _ Juliet Virk CNM Cosigner Signature: Date (if applicable) CC: ~ [facility] [facility] Work Phone: 1(648) 854-854608-02-2025 Evaluation note* Diagnosis Onset Date Resolution Status Admit Date Luis Felipe's disease acute Aug 2024 2:53pm History of depres cecilia, currently acute May 27, 2025 2:53pm History of shoulder dystocia in prior , currently acute May 27 2:53pm Hx of oligohydramnios in [place] or , currently acute Au 2024 2:53pm acute May 27, 2 025 2:53pm Supervision of high-risk acute May 27 2:53pm [facility] Work Phone: 1(376) 793-937204-10-2024 Progress note Author Liza Park [facility] January 15, 2024 8:19am Note Date/Time January 15, 2024 8:1 9am [facility] Medical Records Department [address] [place] [address] Progress Note - OBGYN 01/15/24816 MR#: [id number] Acct: [id number] Name: NAYELI HERNANDEZ Rep #:[id number] : 1995 28 From: Liza Park CNM PCP: Care Physician,No Primary Status :ADM IN Location: [place] [address]-1 Subjective Subjective Patient doing well without complaints. Tolerating PO. Ambulating and voiding without difficulty. Feeding well. Denies chest pain, shortness of breath, calf pain/swelling, fevers, chills, lightheadedness. Objective Data Objective Data Vital Signs: Vital Signs Temp Pulse Resp BP Pulse Ox O2 Del Method 97.8 F 80 16 108/70 100 Room Air 01/15/24 01:48 01/15/24 01:48 01/15/24 01:48 01/15/24 01:48 01/15/24 01:48 01/15/24 01:48 Oxygen Delivery Method Room Air Weight: 152 lb Body Mass Index (BMI) 27.8 Intake & Output: Intake and Output for Last 24 Hours 01/13/24 01/14/24 01/15/24 23:59 23:59 23:59 Intake Total 1477.56 / 1477.56 843.27 / 843.27 Output Total 700 / 700 50 / 50 Balance 777.56 / 777.56 793.27 / 793.27 Lab / Micro Data 01/13/24 13:45 Physical Exam Const alert and no apparent distress HEENT normocephalic and moist oral mucous membranes Eyes PERRL Neck full ROM Lymph Lymphatic: no lymphadenopathy noted Chest inspection of chest normal Resp normal respiratory effort and normal air movement Cardio regular rate and regular rhythm GI GI Narrative: Soft, nontender, uterus firm and below umbilicus Extremity normal to inspection, full ROM and no clubbing, cyanosis or edema Neuro moves all extremities, no focal motor deficits and no sensory deficits noted Psych mental status grossly normal, affect normal, speech normal and activity/motor behavior normal Assessment & Plan (1) Spontaneous vaginal delivery: COMMENT: 01/14/24 yeny CHUN (2) H/O depression, currently : COMMENT: no meds. stable PLAN: Plan s/p PPD # 1 1. routine post delivery care 2. breast feeding- support given 3. rh positive 4. rubella immune 5. d/c home today. 01/15/24 0819 <Electronically signed by Liza Park CNM> Cosigner Signature (if applicable): CC: ~ Signed [facility] Work Phone: 1(823) 472-784104-09-2024 Discharge summary Author Radha Villalobos [facility] January 14, 2024 1:05am Note Date/Time January 14, 2024 1:05 am [facility] Medical Records Department [address] [place] [address] Instructions for Home/Discharge Instructions 01/14/24 0104 MR#: [id number] Acct: [id number] Name: TWYLANAYELI MONREAL Rep #:[id number] : 1995 28 From: Radha Jin DO PCP: Care Physician,No Primary Status :ADM IN Discharge Instructions Diet Discharge Diet: No restrictions Activity Discharge Activity: Return to Normal Activity, May Not Drive (while taking narcotic pain medications.) and May Shower May resume sexual activity in: 4-6 weeks Dressing / Incision Call your doctor if your incision/area has: Continuous Slow Oozing, Sudden Increased Bleeding, Increased Pain/ Swelling, Increased Redness and Foul Smelling Discharge Follow Up Care Please Follow Up With: Radha Jin DO When: Call [phone] to make an appointment with your doctor in 6 weeks. If you had elevated blood pressure or 4th degree laceration, you will need to be seen in 2 weeks. Test Results: Test results from this visit will be discussed in further detail at your follow- up appointment, if applicable. Discharge Plan Admission Admit Date/Time: 01/13/24 12:39 Attending Provider: Radha Jin Primary Care Provider: Care Physician,Rosio Primary Discharge Orders/Prescriptions Prescriptions: No Action sertraline [Zoloft] 50 mg tablet 50 mg PO DAILY Qty: 90 4RF 1 mg Tablet 1 tab PO DAILY Referrals / Follow Up: Care Physician,No Primary [Primary Care Provider] - 01/14/24 0105<Electronically signed by Radha Jin DO>Radha Jin DO CC: No Primary Care Physician ~ Signed [facility] Work Phone: 1(190) 458-823104-09-2024 Procedure [facility] 01-13-2024 Progress note Author Radha Villalobos [facility] January 13, 2024 5:22pm Note Date/Time January 13, 2024 5:22 pm [facility] Medical Records Department [address] [place] [address] Progress Note 01/13/24 1720 MR#: [id number] Acct: [id number] Name: NAYELI HERNANDEZ Rep #:[id number] : 1995 28 From: Radha Jin DO PCP: Care Physician,No Primary Status :ADM IN Location: [place] [address] Progress Note pt is status post one dose of cytotec and consents to either a mcgovern balloon or arom. current tracing: FHT: Moderate variability reactive no decelerations category I tracing Mascotte: q2-3 min Contractions cx: internally is 3-4/ external 2/70/-2, membranes ruptured with clear fluid return A/P: pt wants epidural before starting pitocin 01/13/24 1722 <Electronically signed by Radha Jin DO> Radha Jin DO Cosigner Signature (if applicable): CC: ~ Signed [facility] Work Phone: 1(613) 287-921304-08-2024 History and physical note Author Fanta Zarate [facility] January 13, 2024 2:28pm Note Date/Time January 13, 2024 2:28 pm [facility] Medical Records Department [address] [place] [address] History & Physical Exam 01/13/24 1428 MR#: [id number] Acct: [id number] Name: NAYELI HERNANDEZ Rep #:[id number] : 1995 28 From: Fanta freeman MD PCP: Care Physician,No Primary Status :ADM IN Location: [id number] History and Physical Vital Signs 01/07/2414:50 01/12/2411:31 01/12/2411:33 01/13/2412:01 Height 5 ft 2 in 5 ft 2 in 5 ft 2 in Weight: 164 lb BMI 29.9 BP 116/75 Intake Visit Reasons: 37 WK OB PER JV Dipper And Drier Required: No Is patient in pain?: No Allergies No Known Allergies Allergy (Verified 01/13/24 12:46) Medications ilyluxrx-ebf-Ki-FA 1 mg tablet 1 tab PO DAILY 04/23/22 [History Confirmed 01/13/24] sertraline 50 mg tablet (Zoloft) 50 mg PO DAILY anxiety #90 tabs 11/13/23 [Rx Confirmed 01/13/24] Last Menstrual Period: 04/26/23 Zika: Zika virus screening: Negative : No PFSH PFSH Medical History (Updated 01/13/24 @ 14:[address] 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 current occupational exposures/hazards: No pets and animals: Yes pets and animals: dog(s) history of recent travel: No sexually active: Yes Smoking Status: Never smoker alcohol intake: current alcohol intake frequency: holidays/special occasions only details: Not while substance use type: does not use well-balanced diet: daily or most days caffeine: Yes Type: carbonated beverages Number of servings: 1 eating out: 1-3 times/week during the past year weight has: remained stable what type of physical activity do you participate in: walking frequency: 3-4 times per week duration: 30-45 minutes/day tigre/baptism: Adventist seatbelt use: always do you feel safe at home: Yes additional social history: - 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 Date Name GA/Weeks Outcome Route Bth Weight Infant Gen Labor Lgth Anesthesia Del Locatn Provider FOB 02/12/21 Suyapa 39 live - full term 7#.04oz F emale ? epidural [facility] Dr.Bailey Santos 06/21/22 Aurora 39 live - full term 7#11oz Fe male ? epidural [facility] Daniela Santos Delivery Date: 02/12/21 Last Updated by: Huma Dietrich IOL- failure to progress, head stuck on hip Delivery Date: 06/21/22 Last Updated by: Huma Dietrich IOL-early labor 2 wks, shoulder dystocia HPI 37 WK OB PER JV Details: NAYELI HERNANDEZ is a 28 year old who presents for routine OB visit. upon evlauaiton she has oligohydramnios and denies lof has had decreased fm the last day and denies any vaginal bleeding, baby measuring 6lb 4 ounces last week, previous delivery 7 lbs uncomplicated. OB Visit PRANAY Calculator ? Estimated Delivery Date Method Current WG Current Estimate 01/31/24 LMP (Uncertain) 37w 3d Expected Delivery Route/Plan Labor Preferences- CB/BF classes: no labor support person: Ericka labor intervention preferences: [] pain management options preferred: epidural ok cut cord/dad catch: cord : yes PP control planned: discussed discussed possible routes of delivery and associated risks: [] special requests: [] Specific Issue/Plans Covid status: declined Flu vaccine: given at work Tdap vaccine: [] Rhogam: na LARC form signed: yes Problem list reviewed and updated with the most current plan of care details and appropriate orders placed. Relevant counseling for the gestational age provided. Continue routine care and follow up unless otherwise noted in visit notes/problem list details Initial Weight: Not Recorded Date -?-?-?-?-?-?-?-?-?-?-?-?- EGA Weight BP Urine Prot -?-?-?-?-?-?-?-?-?-?-?-?- Glucose FHR FuHt Pres Dilation -?-?-?-?-?-?-?-?-?-?-?-?- Effaced St Visit Note 06/24/23-?-?-?-?-?-?-?-?-?-?-?-?- 8w 3d 146 lb 8 oz 110/63 -?-?-?-?-?-?- ?-?-?-?-?-?- 160 ? ? -?-?-?-?-?-?-?-?-?-?-?-?- ? Sm- CRL 1.8 cm cons with LMP 07/25/23-?-?-?-?-?-?-?-?-?-?-?-?- 12w 6d 146 lb 6 oz 127/77 Negative -?-? -?-?-?-?-?-?-?-?-?-?- Negative 170 ? ? -?-?-?-?-?-?-?-?-?-?-?-?- ? kw-no vb/cramping. Formal US ordered-[facility] 08/19/23-?-?-?-?-?-?-?-?-?-?-?-?- 16w 3d 149 lb 6 oz 110/73 -?-?-?-?-?-?- ?-?-?-?-?-?- 140 ? ? -?-?-?-?-?-?-?-?-?-?-?-?- ? SM- no vb lof cramping 09/19/23-?-?-?-?-?-?-?-?-?-?-?-?- 20w 6d 154 lb 99/63 -?-?-?-?-?-?-? -?-?-?-?-?- 145 ? ? -?-?-?-?-?-?-?-?-?-?-?-?- ? SM- no vb some cramping, having some swelling 10/17/23-?-?-?-?-?-?-?-?-?-?-?--?- 24w 6d 154 lb 4 oz 126/78 Negative -?-? -?-?-?-?-?-?-?-?-?-?- Negative 143 24 ? -?-?-?-?-?-?-?-?-?-?-?- ?- ? MH-No VB, LOF. Good Fm. Did labs today. Larc 11/13/23-?-?-?-?-?-?-?-?-?-?-?-?- 28w 5d 156 lb 123/73 Negative -?-? -?-?-?-?-?-?-?-?-?-?- Negative 135 29 ? -?-?-?-?-?-?-?-?-?-?-?- ?- ? JV-having bh contractions but declines exam. no lof, vag bleeding or dec fm. growth scan for 36 weeks ordered.scholder dystocia risks discussedJV-having bh contractions but declines exam. no lof, vag bleeding or dec fm. growth scan for 36 weeks ordered.scholder dystocia risks discussed: matrnal obestity, excessive weight gain in , protracted labor, and diabetes are common risk factors, however IOL is also associated with a risk of shoulder dystocia by almost 3X increased risk. She wants to think about choices when it comes to delivery and let us know. tdap next visit. 11/28/23-?-?-?-?-?-?-?-?-?-?-?-?- 30w 6d 158 lb 103/64 Negative -?-? -?-?-?-?-?-?-?-?-?-?- Negative 160 31 ? -?-?-?-?-?-?-?-?-?-?-?- ?- ? SM- no vb lof good fm no regular ctx 12/11/23-?-?-?-?-?-?-?-?-?-?-?-?- 32w 5d 160 lb 6 oz 116/73 Negative -?-? -?-?-?-?-?-?-?-?-?-?- Negative 155 32 ? -?-?-?-?-?-?-?-?-?-?-?- ?- ? JV-pt has dc and bv on exam. flagyl orderd. urine neg. continue chiropractor treatment. 12/23/23-?-?-?-?-?-?-?-?-?-?-?-?- 34w 3d 163 lb 108/71 -?-?-?-?-?-?- ?-?-?-?-?-?- 165 34 ? -?-?-?-?-?-?-?-?-?-?-?- ?- ? JV- no lof, vaginal bleeding, or dec fm. s/p flagyl treatment and feeling better. JV- no lof, vaginal bleeding, or dec fm. s/p flagyl rx but did not take it and feeling better. 01/08/24-?-?-?-?-?-?-?-?-?-?-?-?- 36w 5d 161 lb 114/79 Negative -?-? -?-?-?-?-?-?-?-?-?-?- Negative 145 36 Cephalic 0.5-?-?-?-?-?-?-?-?- ?-?-?-?- 30 -3 JV-no lof, vaginal bleedi ng or dec fm. NERISSA was 7.5. arom plus ordered and will rpt nerissa in office early next week. baby weighed 6 lbs 4 oz and the plan was to consult [facility] for an amnio and early delivery before baby gets over 7 lbs due to 1 min shoulder dystocia with last . will wait for results before consulting [facility]. 01/13/24-?-?-?-?-?-?-?-?-?-?-?-?- 37w 3d 164 lb 116/75 -?-?-?-?-?-?- ?-?-?-?-?-?- ? ? ? -?-?-?-?-?-?-?-?--?-?-?-?- ? SM- patient seen- fundal height low nerissa checked and 2.8 cm recommend IOL now. ACOG First Trimester First Trimester: Second Trimester Second Trimester: Signs and Symptoms of Labor, Selecting a care provider, Reproductive Life Planning & Contreception, Care Planning, Depression/Anxiety and Intimate Partner Violence; Discussed Tobacco Cessation Third Trimester Third Trimester: Pain Management Plans, Labor support person(s), Immediate Larc, Movement Monitoring, Signs and Symptoms of Preeclampsia and [place] Education ROS Const Reports system reviewed and no additional complaints, except as documented, Reports fatigue and Denies fever(s) Eyes Reports system reviewed and no additional complaints, except as documented ENT Reports system reviewed and no additional complaints, except as documented Card Denies chest pain and Denies dyspnea Resp Reports system reviewed and no additional complaints, except as documented, Denies cough and Denies dyspnea GI Denies abdominal pain and Reports nausea Reports system reviewed and no additional complaints, except as documented Musc Reports system reviewed and no additional complaints, except as documented Skin/Breast Reports system reviewed and no additional complaints, except as documented Neuro Yes system reviewed and no additional complaints, except as documented Psych Reports system reviewed and no additional complaints, except as documented Endo Reports system reviewed and no additional complaints, except as documented and Reports fatigue Exam Const General: healthy appearing, comfortable and no acute distress Orientation: alert [facility] Head: normal to inspection, normocephalic and atraumatic Ears: hearing grossly normal bilaterally and external ears normal Nose: external nose normal and nares normal Mouth: oral mucosae normal Teeth and gingiva: dentition normal Eyes General: appearance normal, both eyes and all related structures Neck Neck: normal visual inspection, no lymphadenopathy and supple Thyroid: thyroid normal Chest Chest palpation & inspection: normal inspection of the chest Breast inspection: normal inspection of the breasts and normal inspection of the axillae Breast palpation: normal palpation of the breasts and normal palpation of the axillae Resp Effort & Inspection: normal respiratory effort GI Inspection: normal to inspection Palpation: soft and no hepatosplenomegaly General: bladder normal to palpation External Female Exam: normal external appearance and normal appearance of the urethra Urethra: normal appearance of the urethra Speculum Exam - Vagina: normal appearance of the vagina and normal vaginal discharge Speculum Exam - Cervix: normal appearance of the cervix Bimanual Exam- Vagina & Uterus: normal bimanual exam, bladder normal to palpation, non-tender and other Bimanual Exam- Adnexa, other: non-tender Skin General: no rashes or lesions noted Neuro Motor: muscle tone normal throughout and no movement abnormalities noted Extrem General: normal to inspection and full ROM Supplemental Info ACOG book given and patient encouraged to read about nutrition, exercise, weight gain, and food avoidance in . Coding Level of Care Code OB Routine Diagnoses History of shoulder dystocia H/O depression, currently O99.891; Z86.59 Supervision of high risk in second trimester O09.92 Trimester: second trimester 37 weeks gestation of Z3A.37 Weeks of gestation: 37 weeks Oligohydramnios in third trimester O41.03X0 Assessment and Plan Assessment and Plan (1) History of shoulder dystocia: Status: Acute Comment: 7 lb 11 ounces, 7 lbs didn't. recommend growth US at 36 weeks. discussed IOL 39 weeks. (2) H/O depression, currently : Status: Acute Comment: no meds. stable (3) Supervision of high-risk : Status: Acute Qualifiers: Trimester: second trimester Qualified Code(s): O09.92 - Supervision of high risk , unspecified, second trimester Comment: PRR , PRANAY [birth year] girl Merelyn PC RavindrachantelAurora, -Ericka (4) : Status: Acute Qualifiers: Weeks of gestation: 37 weeks Qualified Code(s): Z3A.37 - 37 weeks gestation of Comment: normal anatomy, declined genetic, ntd, & carrier testing (5) Oligohydramnios in third trimester: Status: Acute Comment: recommend IOL Plan Patient presents IOL, plan management for with pitocin/AROM. Pain management: need to discuss GBS negative. Management of any complications: none I have reviewed the [facility] and made any clinically relevant updates. 01/13/24 0848 <Electronically signed by Fanta Zarate MD> Cosigner Signature (if applicable): CC: Dr. Fanta Zarate MD; No Primary Care Physician~ Signed [facility] Work Phone: [phone]) 993-260409-18-2023 NotePap Smear Specimen AdequacySeptember 2022 10:16amComment.Satisfactory for evaluation. Endocervical and/or squamous metaplasticcells (endocervical component)are present.[facility] INTERFACED A#[id number] on above:Satisfactory for evaluation. Endocervical and/or squamous metaplasticcells (endocervical component)are present.06-24-2023 NotePap Smear Specimen AdequacySeptember 2022 10:16amComment.Satisfactory for evaluation. Endocervical and/or squamous metaplasticcells (endocervical component)are present.[facility] INTERFACED A#[id number] on above:Satisfactory for evaluation. Endocervical and/or squamous metaplasticcells (endocervical component)are present.06-24-2023 NotePap Smear Specimen AdequacySeptember 2022 9:16amComment.Satisfactory for evaluation. Endocervical and/or squamous metaplasticcells (endocervical component)are present.[facility] INTER[facility]ACED A#[id number] on above:Satisfactory for evaluation. Endocervical and/or squamous metaplasticcells (endocervical component)are present.11-17-2021 History of Present illness Narrative* Parmjit Enrique MD - 11/17/2021 10:50 AM EST Follow Up Visit Nayeli Hernandez [id number] 1995 11/17/2021 Chief Complaint Patient presents with Anxiety History of Present Illness: Nayeli Hernandez is a 26 y.o. female presenting for follow up of Pt herefor a follow up: Pt was started on zoloft due to anxiety issues; while on the zoloft she had some really bad lows; has been in [facility] for counseling (needs a referral sent there [...] History Socioeconomic History Marital status: Spouse name: Ericka Number of children: Not on file Years [...] 2 g, Rfl: 11 ergocalciferol 1.25 MG (84725 UT) capsule, Take 50,000 Units by mouth [...] Use Authorization (EUA) for the qualitative detection [id number] nucleic acid. No images are attached to [...] HEALTH Parmjit Enrique MD [facility] History of Present illness Narrative* Parmjit Enrique MD - 08/24/2021 10:30 AM EST SUBJECTIVE: 25 y.o. female for annual checkup. Current Outpatient Medications Medication Sig Dispense Refill acetaminophen 325 MG tablet Take 325 mg by mouth every 4 hours as needed. calcium carbonate 500 MG Chew Tab tablet Chew 500 mg daily as needed. docosanol (Abreva) 10 % Cream cream Apply 1 Application topically 5 times daily. 2 g 11 ergocalciferol 1.25 MG (78696 UT) capsule Take 50,000 Units by mouth [...] exertion. No abdominal pain, change in bowel habits,black or bloody stools. No urinary tract symptoms. BUSINESS LINE MANAGER ROS: no breast pain or new or enlarging lumps on self exam. No neurological complaints. OBJECTIVE: The patient appears well, alert, oriented x 3, in no distress. BP 114/62 (BP Location: Left arm, BP Position: Sitting) Pulse 98 Temp 97.1 F (36.2 C) (Temporal) Ht 1.575 m (5' 2) Wt 64.7 kg (142 lb 9.6 oz) [...] return annually or prn documented in this [facility]05-23-2021 Emergency department Note* Sagar Rodriguez MD - 02/26/2021 10:02 PM EDT Emergency Department Report [facility] EMERGENCY DEPARTMENT Service Date:.02/26/21 PCP: Parmjit Enrique [...] Negative for behavioral problems, confusion, dysphoric mood, hallucinationsand self-injury. The patient is not nervous/anxious. Past Medical History: Past Medical History: Diagnosis Date GERD (gastroesophageal reflux disease) Past Surgical History: Past Surgical History: Procedure Laterality Date EXCISION SOFT TISSUE FINGER HAND Right 04/28/2020 Laterality: Right; Surgeon: Gerri Hicks MD; Location: [facility] OR [facility] DIAG[facility]STIC 2019 WISDOM TEETH EXTRACTION Allergies: No [...] History Socioeconomic History Marital status: Spouse name: Ericka Number of children: Not on file Years [...] and Family: Three times a week Attends Taoism Services: Not on file Active Member of [...] Temp src Pulse Resp SpO2 Height Weight 02/26/212145 1.575 m (5' 2) 63 kg (138 lb 14.2 oz) 02/26/21 2145 114/64 99.7 F (37.6 C) Oral 83 [...] above information. . . Sagar Rodriguez MD 02/26/212246 documented in this encounterW[facility]05-[facility]21 Miscellaneous Notes* Nursing Notes - Beryl Winters RN - 02/09/2021 12:26 AM EDT Patient given discharge instructions. Questions encouraged and answered. Education provided. Patient verbalizes understanding. Denies any needs. Patient ambulated off unit to home with significant other. * Nursing Notes - Beryl Winters RN - 02/09/2021 12:16 AM EDT This nurse called back to let Dr. Flower know Category 1 tracing. Alright to discharge patient. Have patient follow up tomorrow with Dr. Amor. * Nursing Notes - Beryl Winters RN - 02/08/2021 11:26 PM EDT This nurse called Dr. Flower to give [...] office with Dr. Amor. documented in this encounterW[facility]05-[facility] History of Present illness Narrative* Isabel Virk, STEFANI - 02/08/2021 10:45 PM EDT Pt arrives on unit 38+3, c/o leaking of fluid since about 1730 this evening, pt also reports ctx q 2-3 mins x 2 days. +FM denies VB. Pt denies complications with this but does report GBS+ status. Monitors placed, VS obtained, SVE, and swabs obtained. documented in this [facility]05-04-2021 History of Present illness Narrative* Mady Amor MD - 02/07/2021 10:20 AM EDT [facility] [place] 25 y.o. at 38w2d Anxiety, GBS+ -VB, -LOF, -Ctx, +FM She reports painful contractions since yesterday. She is now having back pain, as well. Today: Cervix closed - IOL scheduled for 1899 on 02/12/21 starting with cervical ripening. No future appointments. documented in this [facility]05-04-2021 Procedure note* Mady Amor MD - 02/07/2021 10:20 AM EDT Associated Order(s): DE NON-STRESS TEST Procedure(s): DE NON-STRESS TEST Pre-Procedure Diagnose(s): Uterine contractions during Post-Procedure Diagnose(s): Uterine contractions during Non-stress Test Gestational age: 38w2d Indication: Rule out labor Baseline: 135 bpm 15x15s: present Variability: moderate Decelerations: absent Contractions: q1-2min Duration >20 minutes Comments: REACTIVE 02/07/21 Mady Amor MD documented in this [facility]05-03-2021 Miscellaneous Notes* Nursing Notes - Karla Krishnan RN - 02/06/2021 11:38 PM EDT Patient ambulatory off of floor. * Nursing Notes - Karla Krishnan RN - 02/06/2021 11:32 PM EDT Discharge instructions given to patient, instructed to rest and drink plenty of water, return to unit or call OB with any changes, states understanding. * Nursing Notes - Karla Krishnan RN - 02/06/2021 11:[address] Flower called and informed of patient on floor, informed of complaint, GA, G/P, contractions every2 to 5 minutes, mild, unchanged cervical exam x 2 checks. All labs reviewed, and FHR tracing reviewed, order received to discharge home with labor precautions. * Nursing Notes - Karla Krishnan RN - 02/06/2021 10:05 PM EDT Patient arrives to floor with complaints of contractions q3 minutes since 1930, patient taken to room 203, asked to change into a gown and provide a urine sample. documented in this encounterW[facility]05-03-[facility]21 Hospital Discharge instructions* Instructions* Karla Krishnan RN - 02/06/2021 Christian Padilla Contractions: Care Instructions Your Care Instructions Carroll Padilla contractions prepare your uterus for labor. Think of them as a warm-up exercise that your body does. You may begin to feel them between the 28th and 30th weeks of your . But they start as early as the 20th week. Carroll Padilla contractions usually occur more often during the ninth month. They may go away when you are active and return when you rest. These contractions are like mild contractions of true labor,but they occur less often. (You feel fewer than 8 in an hour.) They don't cause your cervix to open. It may be hard for you to tell the difference between Carroll Padilla contractions and true labor, especially in [...] Where can you learn more? Go to [email or web address]. Enter Z402 in the search box to learn more about 'Christian Padilla Contractions: Care Instructions.' Interested in seeing a video go to [email or web address] to see all video content. Current as of: July 14, 2020 Content Version: 12. [employer]. Care instructions adapted under license by your healthcare professional. If you have questions about a medical condition or this instruction, always ask your healthcare professional. [employer] disclaims any warranty or liability for your use of this information. Early Stage of Labor at Home: Care Instructions Overview If you came to the hospital while in early labor, your doctor may ask you to labor at home until your contractions are stronger. Many women stay at home during early labor. This is often the longest part of the birthing process.It may last up to 2 to 3 [...] 3 minutes. They also last longer, about 50to 70 seconds. You will feel them even when you change positions and walk or move around. It may be hard to tell if you are in active labor. If you aren't sure, call your doctor or pre wave assembler.As your labor progresses, check in with your doctor or pre wave assembler about when to come back to the hospital or birthing center. You may have special instructions if your water broke or you tested positivefor group B strep. Follow-up care is a [...] off your contractions. Ask your partner, labor assistant women's soccer coach, or silk screener for a massage. Shoulder and low back massage during contractions may ease your pain. Strong massage of the back muscles (counterpressure) during contractions may help relieve the pain of back labor. Tell your labor assistant women's soccer coach exactly where to push and how hard to push. Use imagery. This means using your imagination to decrease your pain. For instance, to help manage pain, picture your contractions as waves rolling over you. Picture a peaceful place, such as a [employer] stream, to help you relax between contractions. [...] hour. This means that you have 8 ormore within 1 hour or 4 or more [...] Where can you learn more? Go to [email or web address]/[email or web address]. Enter W539 in the search box to learn more about 'Early Stage of Labor at Home: Care Instructions.' Interested in seeing a video go to [email or web address] to see all video content. Current as of: July 14, 2020 Content Version: 12.8 Fliqq. Care instructions adapted under license by your healthcare professional. If you have questions about a medical condition or this instruction, always ask your healthcare professional. [employer] disclaims any warranty or liability for your use of this information. documented in this [facility] HospitalPopular[facility] [id number] History of Present illness Narrative* Rosita Chacon APRN-CNP - 02/02/2021 1:30 PM EDT Pt doing well. Denies concerns. 1. Uncertain lie - vertex position confirmed by US today. 2. GBBS positive - will need IV ATB during labor. 3. Anxiety - pt doing well on sertraline 25 mg daily. * Carmen Montenegro LPN - 02/02/2021 1:30 PM EDT Patient is 37w4d here for OB follow up. Reports good movement. Denies any concerns documented in this [facility]04-22-2021 History of Present illness Narrative* Mady Amor MD - 01/26/2021 8:30 AM EDT [facility] [place] 25 y.o. at 36w4d Anxiety -VB, -LOF, -Ctx, +FM Today: GBS collected. Cervix closed. No issues - Return OB visit in 1 week. Future Appointments Date Time Provider Department Center 02/02/2021 1:30 PM Rosita Chacon, [facility]PO[id number] * Keeley Alan LPN - 01/26/2021 8:30 AM EDT 36.4 here for KRISTINA. Reports good FM, [...] N/A 36w4d GBS pending documented in this encounterW[facility] HospitalEvaluation [facility]* Diagnosis 36 weeks gestation of - Primary state, incidental Family history of clotting disorder Family history of other blood disorders [facility]* Diagnosis Encounter for supervision of normal first in third trimester- Primary Supervision of normal first Uncertain lie of fetus, single or unspecified fetus Anxiety Anxiety state, unspecified 37 weeks gestation of state, incidental [facility]* Diagnosis Uncertain lie of fetus, single or unspecified fetus [facility]* Diagnosis Encounter for elective induction of labor- Primary Anxiety Anxiety state, unspecified Family history of clotting disorder Family history of other blood disorders Uterine contractions during [facility]* Diagnosis Dysuria- Primary [facility]* Diagnosis Routine general medical examination at a health care facility- Primary [facility]* Diagnosis Anxiety disorder, unspecified type- Primary Dysthymia Dysthymic disorder documented in this encounter [facility] Hospital[facility] noteNo assessment information availableWFisher-Titus [facility] Work Phone: evaluation note* Diagnosis Onset Date Resolution Status acute [facility] Work Phone: evaluation note* Diagnosis Onset Date Resolution Status acute acute [facility] Work Phone: evaluation note* Diagnosis Onset Date Resolution Status acute acute acute acute Vaginal delivery acute [facility] Work Phone: evaluation note* Diagnosis Onset Date Resolution Status H/O depression, currently acute History of shoulder dystocia acute acute Supervision of high-risk [facility] Work Phone: evaluation note* Diagnosis Onset Date Resolution Status H/O depression, currently acute History of shoulder dystocia acute acute Supervision of high-risk acute H/O depression, currently acute History of shoulder dystocia acute acute Supervision of high-risk acute [facility] Work Phone: evaluation note* Diagnosis Onset Date Resolution Status H/O depression, currently acute History of shoulder dystocia acute acute Supervision of high-risk acute H/O depression, currently acute History of shoulder dystocia acute acute Supervision of high-risk acute H/O depression, currently acute History of shoulder dystocia acute acute Supervision of high-risk acute H/O depression, currently acute History of shoulder dystocia acute acute Supervision of high-risk acute H/O depression, currently acute History of shoulder dystocia acute acute Supervision of high-risk acute [facility] Work Phone: evaluation note* Diagnosis Onset Date Resolution Status H/O depression, currently acute History of shoulder dystocia acute acute Supervision of high-risk acute H/O depression, currently acute History of shoulder dystocia acute acute Supervision of high-risk acute H/O depression, currently acute History of shoulder dystocia acute acute Supervision of high-risk acute H/O depression, currently acute History of shoulder dystocia acute acute Supervision of high-risk acute H/O depression, currently acute History of shoulder dystocia acute acute Supervision of high-risk acute H/O depression, currently acute History of shoulder dystocia acute acute Supervision of high-risk acute [facility] Work Phone: Evaluation note* Diagnosis Onset Date Resolution Status H/O depression, currently acute History of shoulder dystocia acute acute Supervision of high-risk acute H/O depression, currently acute History of shoulder dystocia acute acute Supervision of high-risk acute H/O depression, currently acute History of shoulder dystocia acute acute Supervision of high-risk acute H/O depression, currently acute History of shoulder dystocia acute acute Supervision of high-risk acute H/O depression, currently acute History of shoulder dystocia acute acute Supervision of high-risk acute H/O depression, currently acute History of shoulder dystocia acute acute Supervision of high-risk acute H/O depression, currently acute History of shoulder dystocia acute Oligohydramnios in third trimester acute acute Supervision of high-risk acute H/O depression, currently acute History of shoulder dystocia acute Oligohydramnios in third trimester acute acute Supervision of high-risk acute [facility] Work Phone: Evaluation note* Diagnosis Onset Date Resolution Status H/O depression, currently acute resolved Supervision of high-risk resolved H/O depression, currently acute resolved Supervision of high-risk resolved H/O depression, currently acute resolved Supervision of high-risk resolved H/O depression, currently acute resolved Supervision of high-risk resolved H/O depression, currently acute resolved Supervision of high-risk resolved H/O depression, currently acute resolved Supervision of high-risk resolved H/O depression, currently acute Oligohydramnios in third trimester resolved resolved Supervision of high-risk resolved H/O depression, currently acute Spontaneous vaginal delivery acute Oligohydramnios in third trimester resolved resolved Supervision of high-risk resolved [facility] Work Phone: Hospital Discharge instructions* Instructions* Beryl Winters RN - [...] healthcare provider may describe these contractions as Carroll- Padilla or signs of false labor. These [...] away. 2016 - May 14, 2019, [facility]. This handout is for informational purposes only. Talk with your doctor or healthcare team if you have any questions about your care. For more health information call the [place] for Health Information at [phone] or email: [email or web address]. Signs of Labor Mucus plug Some [...] effaced. 2016 - May 14, 2019, [facility]. This handout is for informational purposes only. Talk with your doctor or healthcare team if you have any questions about your care. For more health information call the Library for Health Information at [phone] or email: [email or web address]. documented in this encounterWooster Community HospitalHospital Discharge instructions* Attachments The following attachments cannot be sent through Care Everywhere. * Dysuria (Mongolian) documented in this encounterW[facility] HospitalRemad[facility] for referral (narrative)* Consultation (Routine) - New Request Specialty Diagnoses / Procedures Referred By Nancy jasmine Referred To Contact Diagnoses Anxiety disorder, unspecified type Dysthymia Parmjit Enrique MD [address] [place] [id number] Referral ID Status Reason Start Date Expiration Date V isits Requested Visits Authorized [id number] New Request 11/21/2021 12/16/2022 1 1 [facility] for referral (narrative)No reason for referral information availableTulsa Smart Ventures Services Work Phone: Instructions * Patient Instructions* Mady Farrell MD [...] Instructions Your Care Instructions Herpes gingivostomatitis (say TPR-acj-yge-ujlw-axb-GY-tus) is a viral infection, caused by the [...] your doctor if your child can take bnmxem-tzm-dholnzo medicine. Do not give aspirin to anyone [...] Log into your personal health record on https://StylePuzzlet.Bridgefy and enter Y555 in the Education box to learn more about Herpes Gingivostomatitis in Children: Care Instructions. Current as of: February 15, 2017 Content Version: 11.6 9108-2060 Fliqq. Care instructions adapted under license by your healthcare professional. If you have questions about a medical condition or this instruction, always ask your healthcare professional. [employer] disclaims any warranty or liability for your [...] you are older than 45 and are -Samoan or have a father or brother who got prostatecancer when he was younger than 65. When should you call for help? Watch closely for changes in your health, and be sure to contact your doctor if you have any problems or symptoms that concern you. Where can you learn more? Log into your personal health record on https://GlucoVista.Bridgefy and enter P072 in the Education box to learn more about Well Visit, Ages 18 to 50: Care Instructions. Current as of: February 19, 2017 Content Version: 11.6 2330-8805 Fliqq. Care instructions adapted under license by your healthcare professional. If you have questions about a medical condition or this instruction, always ask your healthcare professional. [employer] disclaims any warranty or liability for your [...] you are older than 45 and are -Samoan or have a father or brother who got prostatecancer when he was younger than 65. When should you call for help? Watch closely for changes in your health, and be sure to contact your doctor if you have any problems or symptoms that concern you. Where can you learn more? Log into your personal health record on https://StylePuzzlet.Bridgefy and enter P072 in the Education box to learn more about Well Visit, Ages 18 to 50: Care Instructions. Current as of: February 19, 2017 Content Version: 11.6 6893-5430 Fliqq. Care instructions adapted under license by your healthcare professional. If you have questions about a medical condition or this instruction, always ask your healthcare professional. F[employer] disclaims any warranty or liability for your use of this information. in this encounter* Patient Instructions* Qing Love LPN - 06/14/2020 11:00 AM EDT 1 documented in this encounter History of Present Illness * Mady Farrell MD - 08/21/2018 1:18 PM EST Subjective Patient ID: Nayeli Sullivan is a 22 y.o. female. [facility] establish care. Patient is new to this [...] tomato based products. She has tried several ehfb-jnd-blzdlqc topical preparations. The following portions of the [...] following: Height as of this encounter: 5' 2. Weight as of this encounter: 56.7 kg [...] 9:30 AM EDT New Patient Visit Nayeli Hernandez [id number] 1995 02/04/2020 Chief Complaint Patient presents with Establish Care History of Present Illness: Nayeli Hernandez is a 24 y.o. 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 5. Declines AFP Tetra screening. 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 Denies any other concerns at this time. [...] Patient voiced understanding of instructions. * Shawn Ly LPN - 10/03/2020 10:00 AM EST 20w1d. [...] file Gets together: Not on file Attends mosque service: Not on file Active member of [...] culture performed due to age - MYRNA CYTOLOGY-BUSINESS LINE MANAGER, LIQUID BASED; Future 3. Screening for STDs (sexually transmitted diseases) - MYRNA CYTOLOGY-BUSINESS LINE MANAGER, LIQUID BASED; Future 4. Encounter for surveillance [...] with massage, stretching, and ice/heat * Shawn Ly LPN - 11/28/2020 8:30 AM EST 28.1 [...] sleeping better, using benadryl. 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 At [...] Amor MD - 12/26/2020 1:30 PM EDT [facility] Ms. Nayeli Hernandez is a 25 y.o. [...] Department Center 01/12/2021 9:00 AM Rosita Chacon, WHITE SPOOLER-WHITE SPOOLER [id number] MYRNA TRISH Amor MD documented in this encounter* Mady Amor MD - 01/12/2021 9:00 AM EDT [facility] 25 y.o. at 34w4d Anxiety -VB, -LOF, [...] Purpose Family History No Family History Records Found Relationship Condition Age at Onset Recorded Date/T manuel grandmother Malignant neoplasm of breast 65 aunt Malignant neoplasm of breast 60 Relationship Condition Age at Onset Recorded Date/T manuel grandmother Malignant neoplasm of breast 65 aunt Malignant neoplasm of breast 60 sister Disorder of thyroid Unknown mother Disorder of thyroid Unknown Hypertension Unknown father Hypertension Unknown Advance Directives No Advanced Directives Records FoundLatest Code Status on File Code Status Date Activated Date Inactivated Comments Full Code 02/14/2021 7:26 AM Latest Code Status on File Code Status Date Activated Date Inactivated Comments Full Code 02/14/2021 7:26 AM Advance Directive Response Recorded Date/ Time Living Will No June 21, 2022 7:44am Power of E Learning Manager No June 7:44am Advance Directive Response Recorded Date/ Time Living Will No June 21, 2022 6:44am Power of E Learning Manager No June 6:44am Advance Directive Response Recorded Date/ Time Name of Medical Power of E Learning Manager ericka mitchells January 13, 2024 2:43pm Living Will Yes January 13, 2024 2:43pm Power of E Learning Manager Yes January 12 2:43pm Reason for Referral Status Reason Specialty Diagnoses / Procedures Referred By Contact Referred To Contact New Request Diagnoses Ganglion cyst of wrist, right Procedures XR HAND RIGHT 3+ VIEWS Ceci Che, GIDEONC [address] [place] [address] Status Reason Specialty Diagnoses / Procedures Referred By Contact Referred To Contact Auth Not Needed Ultrasound Diagnoses 10 weeks gestation of Procedures US OB DATING ABDOMINAL < 14WEEKS Mady Amor MD [address] [place] [phone] [facility] [address] [place] [phone] Status Reason Specialty Diagnoses / Procedures Referre d By Contact Referred To Contact Closed Ultrasound Diagnoses 10 weeks gestation of Procedures US OB DATING ABDOMINAL < 14WEEKS Mady Amor MD [address] [place] [phone] [facility] [address] [place] [phone] Status Reason Specialty Diagnoses / Procedures Referre d By Contact Referred To Contact Closed Diagnoses 20 weeks gestation of Procedures US OB ANATOMY Sandra Mchugh, WHITE SPOOLER-WHITE SPOOLER [address] [place] [address] Status Reason Specialty Diagnoses / Procedures Referred By Contact Referred To Contact New Request Diagnoses Uncertain lie of fetus, single or unspecified fetus Procedures US OB LIMITED/NERISSA Rosita Chacon, WHITE SPOOLER-WHITE SPOOLER [id number] [place] [address] Discharge Instructions * Instructions* Lois Cash RN - 04/28/2020 Nayeli Hernandez 04/28/2020 GERRI HICKS M.D. HOME INSTRUCTIONS FOR [...] free to contact your physician by calling [phone] ([phone]). If it is after hours you can contact the it consulting manager doctor by calling [facility] at [phone]. Prescription refills will only be done during [...] next business day for an appointment at [phone] ([phone]) documented in this encounter* Attachments The following attachments cannot be sent through Care Everywhere. * Migraine Headache (Mongolian) documented in this encounter Chief Complaint and Reason for Visit Chief Complaint DECREASE MOVEM ENT Chief Complaint DECREASE MOVEM ENT R/O LABOR RULE OUT LABOR Reason for Visit Chief Complaint DECREASE MOVEM ENT R/O LABOR RULE OUT LABOR Reason for Visit Chief Complaint DECREASE MOVEM ENT R/O LABOR RULE OUT LABOR R/O LABOR VAGINAL DELIVERY Reason for Visit Vaginal delivery Chief Complaint NOB LMP 04/27 PAP Reason for Visit H/O depre ssion, currently History of shoulder dystocia Supervision of high-risk Chief Complaint NOB LMP 04/27 PAP 12 WK OB Reason for Visit H/O depre ssion, currently History of shoulder dystocia Supervision of high-risk H/O depression, currently History of shoulder dystocia Supervision of high-risk Chief Complaint NOB LMP 04/27 PAP 12 WK OB 16 WK OB CERVICAL LENGTH 20 WK OB 24 WK OB Reason for Visit H/O depre ssion, currently History of shoulder dystocia Supervision of high-risk H/O depression, currently History of shoulder dystocia Supervision of high-risk H/O depression, currently History of shoulder dystocia Supervision of high-risk H/O depression, currently History of shoulder dystocia Supervision of high-risk H/O depression, currently History of shoulder dystocia Supervision of high-risk Chief Complaint 16 WK OB CERVICAL LENGTH 20 WK OB 24 WK OB 28 WK OB 30 WK OB 32 WK OB Reason for Visit H/O depre ssion, currently History of shoulder dystocia Supervision of high-risk H/O depression, currently History of shoulder dystocia Supervision of high-risk H/O depression, currently History of shoulder dystocia Supervision of high-risk H/O depression, currently History of shoulder dystocia Supervision of high-risk H/O depression, currently History of shoulder dystocia Supervision of high-risk H/O depression, currently History of shoulder dystocia Supervision of high-risk Chief Complaint CERVICAL LENGTH 20 WK OB 24 WK OB 28 WK OB 30 WK OB 32 WK OB 34 WK OB R/O LABOR Reason for Visit H/O depre ssion, currently History of shoulder dystocia Supervision of high-risk H/O depression, currently History of shoulder dystocia Supervision of high-risk H/O depression, currently History of shoulder dystocia Supervision of high-risk H/O depression, currently History of shoulder dystocia Supervision of high-risk H/O depression, currently History of shoulder dystocia Supervision of high-risk Chief Complaint 20 WK OB 24 WK OB 28 WK OB 30 WK OB 32 WK OB 34 WK OB R/O LABOR R/O LABOR OBSTRUCTED LABOR 36 WK OB 37 WK OB PER JV VAG OLIGO VAG Reason for Visit H/O depre ssion, currently History of shoulder dystocia Supervision of high-risk H/O depression, currently History of shoulder dystocia Supervision of high-risk H/O depression, currently History of shoulder dystocia Supervision of high-risk H/O depression, currently History of shoulder dystocia Supervision of high-risk H/O depression, currently History of shoulder dystocia Supervision of high-risk H/O depression, currently History of shoulder dystocia Supervision of high-risk H/O depression, currently History of shoulder dystocia Oligohydramnios in third trimester Supervision of high-risk H/O depression, currently History of shoulder dystocia Oligohydramnios in third trimester Supervision of high-risk Chief Complaint 20 WK OB 24 WK OB 28 WK OB 30 WK OB 32 WK OB 34 WK OB R/O LABOR R/O LABOR OBSTRUCTED LABOR 36 WK OB 37 WK OB PER JV VAG OLIGO VAG VAG Reason for Visit H/O depre ssion, currently Supervision of high-risk H/O depression, currently Supervision of high-risk H/O depression, currently Supervision of high-risk H/O depression, currently Supervision of high-risk H/O depression, currently Supervision of high-risk H/O depression, currently Supervision of high-risk H/O depression, currently Oligohydramnios in third trimester Supervision of high-risk H/O depression, currently Spontaneous vaginal delivery Oligohydramnios in third trimester Supervision of high-risk Chief Complaint Admit Date Amb Documentation May 14, 2025 10: 53am *EST* NOB LMP 03/20, PRANAY 12/25 2:53pm 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, 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 History of depression, curren tly May 27, 2025 2:53pm History of shoulder dystocia in prior , currently May 27, 2025 2:53pm Hx of oligohydramnios in prior , currently May 27, 2025 2:53pm May 27, 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 Supervision of high-risk Augus t 2024 2:53pm Additional Source Comments Reason for Visit (unrecogniz ed section and content) Reason Comments Establish Care Mouth Lesions Reason Comments Establish Care Reason Comments New Patient right wrist cyst Status Reason Specialty Diagnoses / Procedures Referred By Contact Referred To Contact New Request Diagnoses Ganglion cyst of wrist, right Procedures XR HAND RIGHT 3+ VIEWS Ceci Che, [address]IE [address] [place] [address] Reason Comments Cyst Pre-operative Evaluation Status Reason Specialty Diagnoses / Procedures Referre d By Contact Referred To Contact Diagnoses Ganglion of right wrist Ganglion of right wrist [M67.431] Procedures DE EXC FABBY/VASC MAL SFT TISS HAND/FNGR SUBQ [...] 14WEEKS Mady Amor MD [address] [place] [address] [facility] [address] [place] [address] Reason Comments 11.1 weeks Reason Comments 16w1d, sciatic pain, loosing hair. 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 Last pap 12/2018 a t [facility] [...] of Procedures US OB ANATOMY Sandra Mchugh, WHITE SPOOLER-WHITE SPOOLER [address] [place] [address] Reason Comments 34w4d, patient denie s any problems Reason Comments 36.4 Reason Comments 37.4 Status Reason Specialty Diagnoses / Procedures Referred By Contact Referred To Contact New Request Diagnoses Uncertain lie of fetus, single or unspecified fetus Procedures US OB LIMITED/NERISSA Rosita Chacon, WHITE SPOOLER-WHITE SPOOLER [id number] [place] [address] Reason Comments Contractions Reason Comments 38w2d, Contractions [...] platelets) documented in this encounter Addended by: MURIEL SANCHEZ on: 06/30/2020 09:35 AM Modules accepted: [...] documented in this encounter Addended by: SHAWN LY on: 11/28/2020 09:45 AM Modules accepted: Orders documented in this encounter INFORMATION SOURCE (unrecogn ized section and content) DATE CREATED AUTHOR 11/25/2018 [facility] DATE CREATED AUTHOR AUTHOR'S ORGANIZ ATION 12/15/2018 [facility] DATE CREATED AUTHOR AUTHOR'S ORGANIZ ATION 12/20/2018 [facility] DATE CREATED AUTHOR AUTHOR'S ORGANIZ ATION 12/23/2018 [facility] DATE CREATED AUTHOR AUTHOR'S ORGANIZ ATION 09/12/2019 [facility] DATE CREATED AUTHOR AUTHOR'S ORGANIZ ATION 08/25/2021 [facility] DATE CREATED AUTHOR AUTHOR'S ORGANIZ ATION 11/23/2021 [facility] DATE CREATED AUTHOR AUTHOR'S ORGANIZ ATION 04/26/2024 [facility] DATE CREATED AUTHOR AUTHOR'S ORGANIZ ATION 06/04/2025 [facility] Kristina Dumont RN - 11/25/2020 12:05 AM Bartolo Lozano MD - 11/24/2020 9:55 PM EST ED Notes (unrecognized secti on and content) Patient discharged in stable condition. Discharge instructions given. Patient verbalizes understanding and has no questions at this time. Emergency Department Report [facility] EMERGENCY MEDICINE Service Date:.11/24/20 PCP: [...] Laterality: Right; Surgeon: Gerri Hicks MD; Location: [facility] OR D DIAGNOSTIC 2019 WISDOM TEETH EXTRACTION Allergies: No [...] and Family: Three times a week Attends Taoism Services: Not on file Active Member of [...] 100 18 98 % 1.575 m (5' 2) Orders/Results: Orders Placed This Encounter URINE CULTURE [...] CARE 105 (H) 70 - 100 MG/DL Aids Social Worker [id number] URINALYSIS, MACRO Result Value Ref Range [...] moderate improvement in her symptoms. OB and BUSINESS LINE MANAGER nurse did a heart tones and recording [...] above information. . Bartolo Zheng MD 11/24/20 2335 documented in this encounter Care Teams (unrecognized sec tion and content) Glass Ribbon Machine Operator Relationship Specialty Start Date End Date Pamrjit Enrique MD [address] [place] [address] PCP - General Family Medicine 02/01/20 Glass Ribbon Machine Operator Relationship Specialty Start Date End Date Parmjit Enrique MD [address] [place] [address] PCP - General Family Medicine 02/01/20 Team Status: Active Member Role Status Dates No Primary Care Physician Primary Care Provider Active Team Status: Inactive Member Role Status Dates Dr. Fanta Zarate MD Attending Provider Active Team Status: Inactive Member Role Status Dates No Primary Care Physician Primary Care Provider Active Dr. Fanta Zarate MD Attending Provider, Referr ing Provider Active Team Status: Inactive Member Role Status Dates Juliet Virk CNM Attending Provider Active No Primary Care Physician Primary Care Provider, Refer ring Provider Active Team Status: Inactive Member Role Status Dates No Primary Care Physician Primary Care Provider Active Dr. Scott Artis MD Attending Provider, Referring Pr ovider Active Team Status: Inactive Member Role Status Dates No Primary Care Physician Primary Care Provider, Refer ring Provider Active Dr. Fanta Zarate MD Attending Provider Active Team Status: Inactive Member Role Status Dates No Primary Care Physician Primary Care Provider, Refer ring Provider Active Megan Love SENIOR PRODUCTION SUPERVISOR, SENIOR PRODUCTION SUPERVISOR-C Attending Provider Active Team Status: Inactive Member Role Status Dates No Primary Care Physician Primary Care Provider Active Juliet Virk CNM Attending Provider, Referring Pro vider Active Team Status: Inactive Member Role Status Dates No Primary Care Physician Primary Care Provider, Refer ring Provider Active Dr. Radha Jin DO Attending Provider Activ e Team Status: Inactive Member Role Status Dates No Primary Care Physician Primary Care Provider Active Dr. Radha Jin DO Attending Provider, Refe rring Provider Active Team Status: Active Member Role Status Dates No Primary Care Physician Primary Care Provider Active Dr. Fanta Zarate MD Attending Pr ovider, Referring Provider, Other Provider Active Team Status: Active Member Role Status Dates No Primary Care Physician Primary Care Provider Active Dr. Fanta Zarate MD Admit Provid er, Attending Provider, Other Provider Active Team Status: Active Member Role Status Dates No Primary Care Physician Primary Care Provider Active Dr. Radha Jin DO Admit Prov ider, Attending Provider, Other Provider Active Team Status: Active Member Role Status Dates No Primary Care Physician Primary Care Provider Active Dr. Radha Jin DO Admit Provider, Attendin g Provider Active Team Status: Active Member Role Status Dates No Primary Care Physician Primary Care Provider Active Dr. Radha Jin DO Admit Provider, Other Pr ovider Active Liza Park CNM Attending Provider Active Team Status: Inactive Member Role Status Dates No Primary Care Physician Primary Care Provider Active Dr. Radha Jin DO Admit Provider, Attendin g Provider Active Team Status: Active Member Role/Relationship Status Dates Dr. Laureen Rasmussen MD Primary Care Provider Active Team Status: Active Member Role/Relationship Status Dates Dr. Laureen Rasmussen MD Primary Care Provider Active Start: May 14, 2025 Beryl Kamara RN Attending Provider Active St art: May 14, 2025 Team Status: Inactive Member Role/Relationship Status Dates Dr. Laureen Rasmussen MD Primary Care Provider Active Start: May 27, 2025 End: May 27, 2025 Dr. Laureen Rasmussen MD Referring Provider Active Start: May 27, 2025 End: May 27, 2025 Juliet Virk CNM Attending Provider Active S tart: May 27, 2025 End: May 27, 2025 Team Status: Inactive Member Role/Relationship Status Dates Dr. Laureen Rasmussen MD Primary Care Provider Active Start: May 27, 2025 End: May 27, 2025 Juliet Virk CNM Attending Provider Active S tart: May 27, 2025 End: May 27, 2025 Juliet Virk CNM Referring Provider Active S tart: May 27, 2025 End: May 27, 2025 Goals (unrecognized section and content) Goals may be documented in a n alternate sectionGoals may be documented in an alternate sectionGoals may be documented in an alternate sectionGoals may be documented in an alternate sectionGoals may be documented in an alternate sectionGoals may be documented in an alternate sectionGoals may be documented in an alternate sectionGoals may be documented in an alternate sectionGoals may be documented in an alternate sectionGoals may be documented in an alternate sectionGoals may be documented in an alternate sectionGoals may be documented in an alternate section FOR RECORDS PERTAINING TO PATIENTS WHO ARE [...] BE BASED ON THE PRIMARY CLINICAL RECORDS. [employer] [facility]. provides no warranty or guarantee of the accuracy or completeness of information in this document.
[2025-06-16 06:47] LABS: Hematocrit 37.6 % (37-47); Hemoglobin 12.9 g/dL (12.0-15.0); Immature Granulocytes Count 0.030 X10^3/uL (0.0-0.0); Mean Corp Hgb Conc 34.3 g/dL (32-36); Mean Corpuscular Volume 85.6 fL (81-99); Mean Platelet Vol. 10.9 fl (6.2-12.0); NRBC Flagged by Analyzer 0 % (0-5); Platelet Count 213 K/mm3 (150-450); RBC Distribution Width CV 12.6 % (11.6-14.6); RBC Distribution Width SD 39.2 fl (35.1-43.9); Red Blood Count 4.39 M/mm3 (4.2-5.4); White Blood Count 9.2 K/mm3 (4.4-11.0)
[2025-06-16 08:05] LABS: HIV Nonreactive (Nonreactive); Hepatitis B Surface Antigen Nonreactive (Nonreactive); Hepatitis C Antibody Nonreactive (Nonreactive); Syphilis Antibodies Nonreactive (Nonreactive)
== END | disposition home or self-care (01) ==
LOC: LAB 06:12
PROVIDERS: PCP Internal Medicine; Referring Provider Advanced Practice Midwife; Visit Provider Advanced Practice Midwife
DX: O09.90 Supervision of high risk pregnancy, unspecified, unspecified trimester (principal); E06.3 Autoimmune thyroiditis; O99.280 Endocrine, nutritional and metabolic diseases complicating pregnancy, unspecified trimester; Z3A.00 Weeks of gestation of pregnancy not specified
CPT/HCPCS: 36415; 84439; 84443; 85025; 86376; 86703; 86762; 86780; 86803; 86850; 86900; 86901; 87340

== ENCOUNTER → 2025-06-23 | Outpatient (CLI) | payer MEDICAID, SELFPAY ==
--- OUTSIDE RECORDS SUMMARY | 2025-06-23 21:18 | XMS RPT_ITS | CCD ---
Author Organization [facility] Care Team Providers Care Employee Relations Representative Name Role Phone Mady Farrell Primary Care [...] Parmjit Enrique MD Primary Care Provider [phone] Dr. Fanta Zarate Attending Provider [phone] CHICO Virk Attending Provider [phone] Care Physician, No Primary Primary Care Provider Unavailable Care Physician, No Primary Referring Provider Un available Dr. Fanta Zarate Attending Provider CHICO Virk Attending Provider [phone] Care Physician, No Primary Primary Care Provider Unavailable Care Physician, No Primary Referring Provider Un available Ivan MUSIC PASTOR, MANINDER Guzman Attending Provider Care Physician, No Primary Primary Care Provider Unavailable Care Physician, No Primary Referring Provider Un available Dr. Fanta Zarate Attending Provider [phone] TYRONE Love NPC Megan Attending Provider [phone] Dr. Radha Jin Attending Provider [phone] Care Physician, No Primary Primary Care Provider [...] [phone] Beryl Kamara RN Attending Provider Unavailabl Dr. Laureen Shafer MD Referring Provider Juliet Virk CNM Attending Provider [phone] Juliet Virk CNM Referring Provider [phone] Grady, Laureen Referring Unavailable [place], Laureen Primary Care Unavailable Fanta Zarate Attending Unavailable Beryl Kamara Attending Unavailable [place]ady, Laureen Primary Care Unavailable Care Physician, No Primary Referring Unava ilable [place], Laureen Primary Care Unavailable Grady, Laureen Attending Unavailable Sagar Veronica Primary Care Unavailable Sagar Veronica Attending Unavailable Sagar Veronica Referring Unavailable Juliet Virk Referring Unavailable [place], Laureen Primary Care Unavailable Juliet Virk Attending Unavailable Juliet Virk Referring Unavailable [place], Laureen Primary Care Unavailable Juliet Virk Attending Unavailable Juliet Virk Attending Unavailable [place], Laureen Primary Care Unavailable [place], Laureen Referring Unavailable Dr. Laureen Rasmussen MD Primary Care Physician [phone] Beryl Kamara RN Attending Physician Unavailab jai Virk CNM, Juliet Attending Physician [phone] Dr. Fanta Zarate MD Attending Physician Allergies Allergy Classification Reported Allergen(s) Allergy Type Date of Onset Reaction(s) Facility (1 source) No Known Medication Allergies; Translations: [No Known Medication Allergies] Propensity to adverse reactions to drug (disorder) [facility] Repository Medications Current Medications Medication Drug Class(es) [...] by mouth every week ergocalciferol 1.25 MG (41794 UT) capsule Take 50,000 Units by mouth once a week. 0 Active Dlzrarnc-Mzq-Sv-Fa () 1 mg Tablet (16 sources) Start: 04-23-2022 take 1 tablet by mouth once daily Bzilfocv-Ofs-Or-Fa () 1 mg Tablet Active 1 {tbl} PO DAILY April 23, 2022 12:00am Complies with drug therapy Start: 04-23-2022 take 1 tablet by soledad th once daily Ivowgwvm-Chd-Fy-Fa () 1 mg Tablet Active 1 {tbl} PO DAILY April 23, 2022 12:00am Start: 04-23-2022 take 1 tablet by soledad th once daily Xpwptsox-Mgi-Ez-Fa () 1 mg Tablet Active 1 TABLET PO DAILY April 22, 2022 11:00pm Start: 04-23-2022 take 1 tablet by soledad th once daily Sksqgcef-Set-Tq-Fa () 1 mg Tablet Active 1 TABLET [...] 650 mg take 1 tablet by soledad th every four hours as needed acetaminophen 325 [...] 08/21/2018 08/31/2018 cephalexin 500 mg oral tablet (5 sources) Cephalosporin Antibacterial Start: 11-24-2024 End: 12-01-2024 [...] Active Start: 08-21-2018 take 1 capsule by [facility] four times daily cephALEXin (KEFLEX) 500 MG capsule Take 1 (one) capsule (500 mg total) by mouth 4 (four) times a day . 40 capsule 0 08/21/2018 Active cholecalciferol 0.05 mg oral capsule (6 sources) Vitamin D Start: 06-10-2024 End: 05-14-2025 [...] 12:00am January 13, 2024 12:47pm Start: 06-07-2022 Dawson Active 1 TUBE OTHER DAILY June 06, 2022 11:00pm Start: 06-07-2022 Dawson Active 1 TUBE OTHER DAILY June 07, 2022 12:00am Start: 04-04-2020 End: 02-08-2021 docosanol (Abreva) 10 % Crea m cream Indications: Hx of cold sores Apply 1 Application topically 5 times daily. 2 g 11 02/09/2021 Active Start: 02-04-2020 docosanol (Abr yg) 10 % Cream cream Indications: Hx of cold sores Apply 1 Application topically 5 times daily. 2 g 11 02/04/2020 Active escitalopram 10 mg oral tablet (9 sources) Serotonin Reuptake Inhibitor Start: 12-16-2024 End: 05-14-2025 take 1 tablet by mouth once daily Escitalopram Oxalate 10 mg tablet Discontinued 10 mg PO DAILY 05 11March 02, 2025 10:50am May 14, 2025 10:54am [...] Active ferrous sulfate 325 mg oral tablet (3 sources) Start: 02-24-2024 End: 05-14-2025 take 1 [...] 10 mg metroNIDAZOLE 500 mg oral tablet (7 sources) Nitroimidazole Antimicrobial Start: 12-11-2023 End: 12-18-2023 [...] 08/24/2021 Discontinued ondansetron 4 mg oral tablet (11 sources) Serotonin-3 Receptor Antagonist Start: 06-13-2023 End: [...] Start: 03-27-2021 take 2 tablets by mo uth once daily sertraline 25 MG tablet Take [...] [Epigastric pain] Onset: 12-15-2018 Episodic Anxiety disorders (14 sources) Anxiety; Translations: [Anxiety disorder, unspecified] Onset: 02-02-2021 Chronic Comment on above: Stable, No meds Coagulation and hemorrhagic disorders (2 sources) Blood coagulation disorder; 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] Onset: 06-14-2020 06-14-2020 Chronic distress and abnormal forces of labor (1 source) Finding of uterine contractions; Translations: [Other uterine inertia] Episodic Fetopelvic disproportion; obstruction (7 sources) Shoulder girdle dystocia; Translations: [Obstructed labor due to shoulder dystocia] 11-28-2023 Episodic Genitourinary symptoms and ill-defined conditions (1 source) Dysuria; Translations: [Dysuria] Episodic Headache; including migraine (1 source) Status migrainosus; Translations: [Migraine with status migrainosus, not intractable, unspecified migraine type] Chronic Headache; including migraine (1 source) Headache; Translations: [ headache in third trimester] Episodic Malaise and fatigue (4 sources) Fatigue; Translations: [Other fatigue] Onset: 12-03-2024 05-14-2025 Episodic Malposition; malpresentation (2 sources) Uncertain lie; Translations: [Maternal care for unstable lie, not applicable or unspecified] Episodic Menstrual disorders (1 source) Missed period; Translations: [Missed period] Chronic Mood disorders (1 source) Dysthymia; Translations: [Dysthymic disorder] Chronic Other complications of (19 sources) High risk ; Translations: [Supervision of high risk , unspecified, unspecified trimester] 06-13-2023 Episodic Comment on above: , PRANAY 12/25/25, PC: [facility], : Ericka PRR , PRANAY 01/30/ 3 girl [facility], -Ericka PRR, , PRNAAY 12/25, PC: [facility], : Ericka Other complications of (20 sources) H/O: depression; Translations: [History of depression, currently ] 06-13-2023 Episodic Comment on above: Not on meds; stable no meds. stable Other complications of (20 sources) Supervision of high risk , unspecified, unspecified trimester; Translations: [Supervision of unspecified high-risk ] Onset: 06-02-2025 06-24-2023 Episodic Other complications of (7 sources) History of shoulder dystocia; Translations: [Supervision of with other poor reproductive or obstetric history, unspecified trimester] 05-14-2025 Episodic Comment on above: 2nd : 7lbs 11oz, last delivery was fine Other complications of (7 sources) H/O: ; Translations: [Supervision of with [...] 02-12-2021 Episodic Comment on above: 01/14/24 girl Merelyn JV Declines genetic/car rier testing normal anatomy, decl ined genetic, ntd, & carrier testing Other skin disorders (1 source) Alopecia; Translations: [Alopecia] Episodic Other upper respiratory disease (10 sources) Seasonal allergy; Translations: [Other seasonal allergic rhinitis] 06-13-2023 Chronic Other upper respiratory disease (2 sources) Deviated nasal septum; Translations: [Nasal septal deviation] Onset: 08-21-2018 08-21-2018 Episodic Polyhydramnios and other problems of amniotic cavity (9 sources) Oligohydramnios; Translations: [Oligohydramnios, third trimester, not [...] behavioral disorders] Onset: 05-27-2025 Episodic Thyroid disorders (8 sources) Luis Felipe thyroiditis; Translations: [Autoimmune thyroiditis] [...] Test Name Value Interpretation Reference Range Facility Thyroid Peroxidase ABon 06-07 THYR PEROX AB 16 IU/mL Normal 0-[address] [facility] Comment on above: Result Comment: Perf ormed at: - [facility] [address] [id number] [employer] Store Manager: Federico Tavarez PhD, Phone: [phone] Performed By: #### L 500.5130, L3100.3150, L100.0100, L506.1000 #### [facility] [address] [place], [address] Absolute lymphocyte countOrd ered By: Juliet Virk on 06-16-2025 Lymphocytes Auto (Unsp spec) [#/Vol] 2.33 10*3/uL 0.83-4.[address] [facility] Absolute neutrophil countOrd ered By: Juliet Virk on 06-16-2025 Neutrophils (Bld) [#/Vol] 6.1 10*3/uL 2.0-7.[address] [facility] Automated lymphocyte count a s percentage of total leukocytesOrdered By: Juliet Virk on 06-16-2025 Lymphocytes/100 WBC Auto (Unsp spec) 25.4 % 19-[address] [facility] Basophil percentageOrdered B y: Juliet Virk on 06-16-2025 Basophils/100 WBC (Bld) 0.4 % 0-1 [facility] CBC W/Diff, Automatedon 09-1 0-2024 Absolute Lymph 2.33 X10 3/uL Normal 0.83-4.[address] [facility] Comment on above: Performed By: #### L 3300.6900, L509.4006, L3890.6006, L509.8002, L506.0400, L501.9520, BTS, L3890.6102, L3890.6301, L100.0100 #### [facility] [address] [place], [address] Absolute Neut 6.1 X10 3/uL Normal 2.0-7.[address] [facility] Comment on above: Performed By: #### L 3300.6900, L509.4006, L3890.6006, L509.8002, L506.0400, L501.9520, BTS, L3890.6102, L3890.6301, L100.0100 #### [facility] [address] [place], [address] Basophils/100 WBC (Bld) 0.4 % Normal 0-1 [facility] Comment on above: Performed By: #### L 3300.6900, L509.4006, L3890.6006, L509.8002, L506.0400, L501.9520, BTS, L3890.6102, L3890.6301, L100.0100 #### [facility] [address] [place], [address] Eosinophils/100 WBC (Bld) 2.0 % Normal 0-[address] [facility] Comment on above: Performed By: #### L 3300.6900, L509.4006, L3890.6006, L509.8002, L506.0400, L501.9520, BTS, L3890.6102, L3890.6301, L100.0100 #### [facility] [address] [place], [address] Erythrocyte distribution width (RBC) [Ratio] 12.6 % Normal 11.6-14.[address] [facility] Comment on above: Performed By: #### L 3300.6900, L509.4006, L3890.6006, L509.8002, L506.0400, L501.9520, BTS, L3890.6102, L3890.6301, L100.0100 #### [facility] [address] [place], [place], [id number] Hematocrit (Bld) [Volume fraction] 37.6 % Normal 37-[address] [facility] Comment on above: Performed By: #### L 3300.6900, L509.4006, L3890.6006, L509.8002, L506.0400, L501.9520, BTS, L3890.6102, L3890.6301, L100.0100 #### [facility] [address] [facility] [place], [place], [address] Hemoglobin (Bld) [Mass/Vol] 12.9 g/dL Normal 12.0-15.[address] [facility] Comment on above: Performed By: #### L 3300.6900, L509.4006, L3890.6006, L509.8002, L506.0400, L501.9520, BTS, L3890.6102, L3890.6301, L100.0100 #### [facility] [address] [facility] [place], [place], [id number] IG% 0.300 Normal 0.0-0.[address] [facility] Comment on above: Result Comment: IG% - Immature Granulocytes (promyelocytes, myelocytes and metamyelocytes) > 1% indicates that a LEFT SHIFT is Present. Performed By: #### L 3300.6900, L509.4006, L3890.6006, L509.8002, L506.0400, L501.9520, BTS, L3890.6102, L3890.6301, L100.0100 #### [facility] [address] [place], [address] Lymphocytes/100 WBC (Bld) 25.4 % Normal 19-[address] [facility] Comment on above: Performed By: #### L 3300.6900, L509.4006, L3890.6006, L509.8002, L506.0400, L501.9520, BTS, L3890.6102, L3890.6301, L100.0100 #### [facility] [address] [place], [address] MCH (RBC) [Entitic mass] 29.4 pg Normal 27.0-32.[address] [facility] Comment on above: Performed By: #### L 3300.6900, L509.4006, L3890.6006, L509.8002, L506.0400, L501.9520, BTS, L3890.6102, L3890.6301, L100.0100 #### [facility] [address] [place], [address] MCHC (RBC) [Mass/Vol] 34.3 g/dL Normal 32-36 [facility] Comment on above: Performed By: #### L 3300.6900, L509.4006, L3890.6006, L509.8002, L506.0400, L501.9520, BTS, L3890.6102, L3890.6301, L100.0100 #### [facility] [address] [place], [address] MCV (RBC) [Entitic vol] 85.6 fL Normal 81-99 [facility] Comment on above: Performed By: #### L 3300.6900, L509.4006, L3890.6006, L509.8002, L506.0400, L501.9520, BTS, L3890.6102, L3890.6301, L100.0100 #### [facility] [address] [place], [address] Monocytes/100 WBC (Bld) 5.7 % Normal 0-10 [facility] Comment on above: Performed By: #### L 3300.6900, L509.4006, L3890.6006, L509.8002, L506.0400, L501.9520, BTS, L3890.6102, L3890.6301, L100.0100 #### [facility] [address] [place], [address] Neutrophils/100 WBC (Bld) 66.2 % Normal 47-[address] [facility] Comment on above: Performed By: #### L 3300.6900, L509.4006, L3890.6006, L509.8002, L506.0400, L501.9520, BTS, L3890.6102, L3890.6301, L100.0100 #### [facility] [address] [place], [address] Nucleated RBC (Bld) [#/Vol] 0 10*3/uL Normal 0-[address] [facility] Comment on above: Performed By: #### L 3300.6900, L509.4006, L3890.6006, L509.8002, L506.0400, L501.9520, BTS, L3890.6102, L3890.6301, L100.0100 #### [facility] [address] [place], [address] Platelet mean volume (Bld) [Entitic vol] 10.9 fL Normal 6.2-12.[address] [facility] Comment on above: Performed By: #### L 3300.6900, L509.4006, L3890.6006, L509.8002, L506.0400, L501.9520, BTS, L3890.6102, L3890.6301, L100.0100 #### [facility] [address] [place], [address] Platelets (Bld) [#/Vol] 213 10*3/uL Normal 150-[address] [facility] Comment on above: Performed By: #### L 3300.6900, L509.4006, L3890.6006, L509.8002, L506.0400, L501.9520, BTS, L3890.6102, L3890.6301, L100.0100 #### [facility] [address] [place], [address] RBC (Bld) [#/Vol] 4.39 10*6/uL Normal 4.2-5.4 [facility] Comment on above: Performed By: #### L 3300.6900, L509.4006, L3890.6006, L509.8002, L506.0400, L501.9520, BTS, L3890.6102, L3890.6301, L100.0100 #### [facility] [address] [place], [address] RDW SD 39.2 fl Normal 35.1-43.[address] [facility] Comment on above: Performed By: #### L 3300.6900, L509.4006, L3890.6006, L509.8002, L506.0400, L501.9520, BTS, L3890.6102, L3890.6301, L100.0100 #### [facility] [address] [place], [address] WBC (Bld) [#/Vol] 9.2 10*3/uL Normal 4.4-11.0 [facility] Comment on above: Performed By: #### L 3300.6900, L509.4006, L3890.6006, L509.8002, L506.0400, L501.9520, BTS, L3890.6102, L3890.6301, L100.0100 #### [facility] [address] [place], [place], [address] Eosinophil percentageOrdered By: Juliet Virk on 06-16-2025 Eosinophils/100 WBC (Bld) 2.0 % 0-[address] [facility] Erythrocyte distribution wid th ratioOrdered By: Juliet Virk on 06-16-2025 Erythrocyte distribution width (RBC) [Ratio] 12.6 % 11.6-14.[address] [facility] Erythrocyte distribution wid th standard deviationOrdered By: Juliet Virk on 06-16-2025 Erythrocyte distribution width (RBC) [Ratio] 39.2 fl 35.1-43.[address] [facility] HIVon 06-16-2025 HIV Non-Reactive Normal Nonreactive [facility] Comment on above: Result Comment: Non- Reactive Reactive Repeatedly reactive samples must be confirmed according to CDC recommended confirmatory algorithms. The subresults for either HIVAG or AHIV can be used as an aid in the selection of the confirmation algorithm for reactive samples. Send out specimens with Reactive results to [facility] for confirmation. Order the HIV antibody detection and differentiation: lc#[id number] Performed By: #### L 500.4050, L3100.7950, L100.0100, L506.1000 #### [facility] [address] [facility] [place], [place], [address] Hematocrit Auto (Bld) [Volum e fraction]Ordered By: Juliet Virk on 06-16-2025 Hematocrit (Bld) [Volume fraction] 37.6 % 37-[address] [facility] Hemoglobin measurementOrdere d By: Juliet Virk on 06-16-2025 Hemoglobin (Bld) [Mass/Vol] 12.9 g/dL 12.0-15.[address] [facility] Hepatitis C Antibodyon 06-16 Hepatitis C Ab Non-Reactive Normal Nonreactive [facility] Comment on above: Result Comment: Reac tive: Presumptive evidence of antibodies to HCV. Follow CDC recommendations for supplemental testing. Non-Reactive: Antibodies to HCV were not detected; does not exclude the possibility of exposure to HCV Reactive Results are presumptive evidence of antibodies to HCV. Follow CDC recommendations for supplemental testing. Order confirmation testing: HCV Quant by PCR testing - HCVPCR lc#[id number] Non Reactive: < 0.8 Equivocal: >/= 0.8 to < 1.0 Reactive: >/= 1.0 The CDC requires that a reactive/equivocal HCV antibody result be sent out for confirmation. HCV Quant by PCR testing. Performed By: #### L 500.4050, L3100.7950, L100.0100, L506.1000 #### [facility] [address] [facility] [place], [place], [address] Immature granulocytes/100 WB C Auto (Bld)Ordered By: Juliet Virk on 06-16-2025 Immature granulocytes/100 WBC (Bld) 0.300 % 0.0-0.[address] [facility] Comment on above: IG% - Immature Granu locytes (promyelocytes, myelocytes and metamyelocytes) > 1% indicates that a LEFT SHIFT is Present. L3890.6102on 06-16-2025 HEP B Surf Ag Non-Reactive Normal Nonreactive [facility] Comment on above: Result Comment: Reac tive: Presumptive evidence of HBV. Repeatedly reactive samples must be confirmed using a neutralization test ([employer] HBsAg Confirmatory Test) Non-Reactive: HBsAg not detected; does not exclude the possibility of exposure to HBV Performed By: #### L 500.4050, L3100.7950, L100.0100, L506.1000 #### [facility] [address] [facility] [place], [address] L509.4006on 06-16-2025 Rubella IgG REAC Normal Nonreactive [facility] Comment on above: Result Comment: Anti body Result: Interpretation Non-Reactive: Non-Immune Reactive: Immune The following results were obtained with the [employer] Rubella IgG assay. Results from assays of other manufacturers cannot be used interchangeably. Performed By: #### L 500.4050, L3100.7950, L100.0100, L506.1000 #### [facility] [address] [facility] [place], [address] Laboratory - Microbiology an d Antimicrobial susceptibilityOrdered By: Juliet Virk on 06-16-2025 HBV surface Ag Ql (S) Non-Reactive Nonreactive [facility] Comment on above: Reactive: Presumptiv e evidence of HBV. Repeatedly reactive samples must be confirmed using a neutralization test ([employer] HBsAg Confirmatory Test)Non-Reactive: HBsAg not detected; does not exclude the possibility of exposure to HBV MCV (mean corpuscular volume ) determinationOrdered By: Juliet Virk on 06-16-2025 MCV (RBC) [Entitic vol] 85.6 fL 81-99 [facility] Mean corpuscular hemoglobin (MCH) determinationOrdered By: Juliet Virk on 06-16-2025 MCH (RBC) [Entitic mass] 29.4 pg 27.0-32.[address] [facility] Mean corpuscular hemoglobin concentration (MCHC) determinationOrdered By: Juliet Virk on 06-16-2025 MCHC (RBC) [Mass/Vol] 34.3 g/dL 32-36 [facility] Mean platelet volume determi nationOrdered By: Juliet Virk on 06-16-2025 Platelet mean volume (Bld) [Entitic vol] 10.9 fL 6.2-12.[address] [facility] Monocyte percentageOrdered B y: Juliet Virk on 06-16-2025 Monocytes/100 WBC (Bld) 5.7 % 0-10 [facility] Neutrophil percentageOrdered By: Juliet Virk on 06-16-2025 Neutrophils/100 WBC (Bld) 66.2 % 47-[address] [facility] No Panel InformationOrdered By: Juliet Virk on 06-16-2025 HIV (1&2) Antibody Non-Reactive Nonreactive [facility] Comment on above: Non-ReactiveReactive Repeatedly reactive samples must be confirmed according to CDC recommended confirmatory algorithms. The subresults for either HIVAG or AHIV can be used as an aid in the selection of the confirmation algorithm for reactive samples.Send out specimens with Reactive results to [facility] for confirmation.Order the HIV antibody detection and differentiation: #[id number] Nucleated red blood cell per centageOrdered By: Juliet Virk on 06-16-2025 Nucleated RBC/100 WBC (Bld) [Ratio] 0 % 0-[address] [facility] Platelet countOrdered By: Og Virk on 06-16-2025 Platelets (Bld) [#/Vol] 213 10*3/uL 150-[address] [facility] RBC Auto (Bld) [#/Vol]Ordere d By: Juliet Virk on 06-16-2025 RBC (Bld) [#/Vol] 4.39 10*6/uL 4.2-5.4 [facility] Serum or plasma thyroperoxid ase antibody assay (units/volume)Ordered By: Juliet Virk on 06-16-2025 TPO Ab Qn 16 [IU]/mL 0-[address] [facility] Comment on above: Performed at: [address] [id number] Director: Federico Tavarez PhD, Phone: [phone] Syphilis Antibodieson 2024 Syphilis Abs Non-Reactive Normal Nonreactive [facility] Comment on above: Performed By: #### L 500.4050, L3100.7950, L100.0100, L506.1000 #### [facility] [address] [facility] [place], [place], [id number] [phone] Free Directon 06-16-2025 T4 FREE DIRECT 1.10 ng/dL Normal 0.76-1.[address] [facility] Comment on above: Performed By: #### L 500.4050, L3100.7950, L100.0100, L506.1000 #### [facility] [address] [facility] [place], [place], [address] [phone] freeOrdered By: Juliet adams on 06-16-2025 Free T4 [Mass/Vol] 1.10 ng/dL 0.76-1.46 [facility] TSH DL <= 0.005 mIU/L QnOrde red By: Juliet Virk on 06-16-2025 TSH Qn 1.460 uIU/mL 0.300-4.[address] [facility] Thyroid Stim Hormone (TSH)on 06-16-2025 TSH 1.460 uIU/mL Normal 0.300-4.[address] [facility] Comment on above: Performed By: #### L 3300.6900, L509.4006, L3890.6006, L509.8002, L506.0400, L501.9520, BTS, L3890.6102, L3890.6301, L100.0100 #### [facility] [address] [place], [address] Type AND Screenon 06-16-2025 Ab SCREEN GEL Negative Normal [facility] Comment on above: Order Comment: PN Performed By: #### L 500.4050, L3100.7950, L100.0100, L506.1000 #### [facility] [address] [place], [address] White blood cell (WBC) count Ordered By: Juliet Virk on 06-16-2025 WBC (Bld) [#/Vol] 9.2 10*3/uL 4.4-11.0 [facility] Chlamydia/GC JIMMY aptimaon CHLAMY,NUC ACID Negative Normal Negative [facility] Comment on above: Performed By: #### L 7000.1800, M100.2200 #### [facility] [address] [place], [address] GC BY NUC ACID Negative Normal Negative [facility] Comment on above: Result Comment: Perf ormed at: =G - [facility] [address] [id number] Wireless Store Manager: Leta Holt MD, Phone: [phone] Performed By: #### L 7000.1800, M100.2200 #### [facility] [address] [place], [address] Urine Cultureon 05-28-2025 URC Culture exhibits no growth. Normal [facility] Comment on above: Performed By: #### L 7000.1800, M100.2200 #### [facility] [address] [place], [address] Chlamydia trachomatis rRNA d etection by probe and target amplification methodOrdered By: Juliet Virk on 05-27-2025 C. trachomatis rRNA JIMMY+probe Ql (Unsp spec) Negative Negative [facility] Neisseria gonorrhoeae nuclei c acid detection by amplified probe techniqueOrdered By: Juliet Virk on 05-27-2025 N. gonorrhoeae DNA JIMMY+probe Ql (Unsp spec) Negative Negative [facility] Comment on above: Performed at: =[facility] [address] [place] [id number] Director: Leta Holt MD, Phone: [phone] Medical Collector Office Visit Reporton 05-27-2025 Medical Collector Office Visit Report [facility] [address], [address] [place] [address] OFFICE VISIT Date of Service: 05/27/25 MR#: [id number] Acct: [id number] Name: NAYELI HERNANDEZ Rep #: [id number] : 1995 Provider: CHICO Garrido ams Age/Sex: 29/F [place] [facility] [place]: Signed Intake Vital Signs 11/18/24 08:47 04/27/25 14:36 05/27/25 14:55 Height 5 ft 2 in 5 ft 2 in 5 ft 2 in Weight: 164 lb BMI 29.9 BP 106/71 Intake Visit Reasons: *EST* NOB LMP 03/20, PRANAY 12/25 Chief Complaint: New OB Technical Photographer Required: No Is patient in pain?: No Allergies No Known Allergies Allergy (Verified 05/27/25 14:54) Medications ???Medication ???Instructions ???Recorded ???Confirmed ???Type lprziqmq-bmq-Uw-FA 1 mg 1 tab PO DAILY 04/23/22 05/27/25 History tablet valacyclovir 1 gram tablet 2,000 mg (2 x 1 gram) PO BID PRN 0 03/24/25 05/27/25 Rx (Valtrex) cold sore #4 tabs Last Menstrual Period: 03/20/25 PFSH PFSH Medical History History of shoulder dystocia Anxiety depression Seasonal allergies Family history of autistic disorder Surgical History [place] teeth extracted History of surgery Family History Grandmother Breast cancer, Onset Age: 65 maternal Aunt Breast cancer, Onset Age: 60 Maternal Sister Thyroid disorder Mother Thyroid disorder Hypertension Sister Thyroid disorder Father Hypertension Social History adopted: No household members: spouse and children number of children: 3 current occupational status: employed 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 Date Name GA/Weeks Outcome Route Bth Weight Infant Gen Labor Lgth Anesthesia Del Locatn Provider FOB 02/12/21 Suyapa 39 live - full term 7#.04oz Female epidural Suzan Santos 06/21/22 [place] 39 live - full term 7#11oz Female epidural [facility]NAST[facility] Dr Lise Santos 01/14/24 Merelyn 37 live - full term 6lbs 11oz Female epidural [employer] LAY Santos Delivery Date: 02/12/21 Last Updated by: Huma Dietrich IOL- failure to progress, head stuck on hip Delivery Date: 06/21/22 Last Updated by: Huma Dietrich IOL-early labor 2 wks, shoulder dystocia Delivery Date: 01/14/24 Last Updated by: Beryl Kamara RN IOL 37 oligo HPI *EST* NOB LMP 03/20, PRANAY 3/21 Details: NAYELI HERNANDEZ is a 29 year [...] list details Initial Weight: 164 lb Date -???-???-???-???-???-?? ?-???-???-???-???-???-? ??- EGA Weight BP Urine Prot -???-???-???-???-???-?? ?-???-???-???-???-???-? ??- Glucose FHR FuHt Pres D (more content not included)... Normal [facility] Urine cultureOrdered By: Doni Virk on 05-27-2025 Bacteria identified Cx Nom (U) Culture exhibits no growth. [facility] Antinuclear Antibody, IFAon 11-23-2024 EUNICE, IFA Negative Normal . [facility] Comment on above: Result Comment: Nega tive <1:80 Borderline 1:80 Positive >1:80 ICAP nomenclature: AC-0 For more information about Hep-2 cell patterns use ANApatterns.org, the official website for the International Consensus on Antinuclear Antibody (EUNICE) Patterns (ICAP). Performed at: [address] [id number] Wireless Store Manager: Federico Tavarez PhD, Phone: [phone] Performed By: #### L 500.4050, L3100.7950, L100.0100, L506.1000 #### [facility] [address] [place], [address] CBC W/Diff, Automatedon 11-07 Absolute Lymph 2.13 X10 3/uL Normal 0.83-4.[address] [facility] Comment on above: Performed By: #### L 500.4050, L3100.7950, L100.0100, L506.1000 #### [facility] [address] [place], [address] Absolute Neut 3.0 X10 3/uL Normal 2.0-7.[address] [facility] Comment on above: Performed By: #### L 500.4050, L3100.7950, L100.0100, L506.1000 #### [facility] [address] [place], [address] Basophils/100 WBC (Bld) 0.5 % Normal 0-1 [facility] Comment on above: Performed By: #### L 500.4050, L3100.7950, L100.0100, L506.1000 #### [facility] [address] [place], [address] Eosinophils/100 WBC (Bld) 2.5 % Normal 0-[address] [facility] Comment on above: Performed By: #### L 500.4050, L3100.7950, L100.0100, L506.1000 #### [facility] [address] [place], [address] Erythrocyte distribution width (RBC) [Ratio] 12.5 % Normal 11.6-14.[address] [facility] Comment on above: Performed By: #### L 500.4050, L3100.7950, L100.0100, L506.1000 #### [facility] [address] [place], [address] Hematocrit (Bld) [Volume fraction] 39.5 % Normal 37-[address] [facility] Comment on above: Performed By: #### L 500.4050, L3100.7950, L100.0100, L506.1000 #### [facility] [address], [address] Hemoglobin (Bld) [Mass/Vol] 12.7 g/dL Normal 12.0-15.[address] [facility] Comment on above: Performed By: #### L 500.4050, L3100.7950, L100.0100, L506.1000 #### [facility] [address] [facility] [place], [address] IG% 0.200 Normal 0.0-0.[address] [facility] Comment on above: Result Comment: IG% - Immature Granulocytes (promyelocytes, myelocytes and metamyelocytes) > 1% indicates that a LEFT SHIFT is Present. Performed By: #### L 500.4050, L3100.7950, L100.0100, L506.1000 #### [facility] [address] [place], [address] Lymphocytes/100 WBC (Bld) 37.7 % Normal 19-[address] [facility] Comment on above: Performed By: #### L 500.4050, L3100.7950, L100.0100, L506.1000 #### [facility] [address] [facility] [place], [address] MCH (RBC) [Entitic mass] 28.5 pg Normal 27.0-32.[address] [facility] Comment on above: Performed By: #### L 500.4050, L3100.7950, L100.0100, L506.1000 #### [facility] [address], [address] MCHC (RBC) [Mass/Vol] 32.2 g/dL Normal 32-36 [facility] Comment on above: Performed By: #### L 500.4050, L3100.7950, L100.0100, L506.1000 #### [facility] [address] [place], [address] MCV (RBC) [Entitic vol] 88.6 fL Normal 81-99 [facility] Comment on above: Performed By: #### L 500.4050, L3100.7950, L100.0100, L506.1000 #### [facility] [address] [place], [address] Monocytes/100 WBC (Bld) 6.5 % Normal 0-10 [facility] Comment on above: Performed By: #### L 500.4050, L3100.7950, L100.0100, L506.1000 #### [facility] [address] [place], [address] Neutrophils/100 WBC (Bld) 52.6 % Normal 47-[address] [facility] Comment on above: Performed By: #### L 500.4050, L3100.7950, L100.0100, L506.1000 #### [facility] [address] [place], [address] Nucleated RBC (Bld) [#/Vol] 0 10*3/uL Normal 0-[address] [facility] Comment on above: Performed By: #### L 500.4050, L3100.7950, L100.0100, L506.1000 #### [facility] [address] [place], [address] Platelet mean volume (Bld) [Entitic vol] 11.0 fL Normal 6.2-12.[address] [facility] Comment on above: Performed By: #### L 500.4050, L3100.7950, L100.0100, L506.1000 #### [facility] [address] [place], [address] Platelets (Bld) [#/Vol] 215 10*3/uL Normal 150-[address] [facility] Comment on above: Performed By: #### L 500.4050, L3100.7950, L100.0100, L506.1000 #### [facility] [address] [place], [address] RBC (Bld) [#/Vol] 4.46 10*6/uL Normal 4.2-5.4 [facility] Comment on above: Performed By: #### L 500.4050, L3100.7950, L100.0100, L506.1000 #### [facility] [address] [place], [address] RDW SD 40.5 fl Normal 35.1-43.[address] [facility] Comment on above: Performed By: #### L 500.4050, L3100.7950, L100.0100, L506.1000 #### [facility] [address] [place], [address] WBC (Bld) [#/Vol] 5.7 10*3/uL Normal 4.4-11.0 [facility] Comment on above: Performed By: #### L 500.4050, L3100.7950, L100.0100, L506.1000 #### [facility] [address] [place], [address] [facility] Albumin [Mass/Vol] 3.9 g/dL Normal 3.2-5.0 [facility] Comment on above: Performed By: #### L 500.4050, L3100.7950, L100.0100, L506.1000 #### [facility] [address] [place], [address] Albumin/Globulin [Mass ratio] 1.1 {ratio} Normal 0.9-2.[address] [facility] Comment on above: Performed By: #### L 500.4050, L3100.7950, L100.0100, L506.1000 #### [facility] [address] [place], [address] ALK P 78 U/L Normal 45-[address] [facility] Comment on above: Performed By: #### L 500.4050, L3100.7950, L100.0100, L506.1000 #### [facility] [address] [place], [address] ALT [Catalytic activity/Vol] 24 U/L Normal 13-[address] [facility] Comment on above: Performed By: #### L 500.4050, L3100.7950, L100.0100, L506.1000 #### [facility] [address] [place], [address] AST [Catalytic activity/Vol] 10 U/L Low 15-[address] [facility] Comment on above: Performed By: #### L 500.4050, L3100.7950, L100.0100, L506.1000 #### [facility] [address] [place], [address] Bilirubin [Mass/Vol] 0.40 mg/dL Normal 0.20-1.00 [facility] Comment on above: Result Comment: For patients on eltrombopag therapy, use of Dimension [place] TBIL is not recommended. Performed By: #### L 500.4050, L3100.7950, L100.0100, L506.1000 #### [facility] [address] [place], [address] BUN/CRE 17.6 RATIO Normal 10-[address] [facility] Comment on above: Performed By: #### L 500.4050, L3100.7950, L100.0100, L506.1000 #### [facility] [address] [place], [address] CA,Total 9.5 mg/dL Normal 8.5-10.[address] [facility] Comment on above: Performed By: #### L 500.4050, L3100.7950, L100.0100, L506.1000 #### [facility] [address] [place], [address] Chloride [Moles/Vol] 107 mmol/L Normal 98-107 [facility] Comment on above: Performed By: #### L 500.4050, L3100.7950, L100.0100, L506.1000 #### [facility] [address] [place], [address] CO2 [Moles/Vol] 29.0 mmol/L Normal 21.0-32.[address] [facility] Comment on above: Performed By: #### L 500.4050, L3100.7950, L100.0100, L506.1000 #### [facility] [address] [place], [address] Creatinine [Mass/Vol] 0.68 mg/dL Normal 0.55-1.02 [facility] Comment on above: Result Comment: The validity of the calculated GFR GFRAA in patients over 70 years has not been determined. Clinical correlation is essential. Performed By: #### L 500.4050, L3100.7950, L100.0100, L506.1000 #### [facility] [address] [place], [address] EST GFR - AA 133 mL/min Normal >[address] [facility] Comment on above: Result Comment: Afri can [place] Citizen GFR Calc Performed By: #### L 500.4050, L3100.7950, L100.0100, L506.1000 #### [facility] [address] [place], [address] GAP 5 Normal 5-[address] [facility] Comment on above: Performed By: #### L 500.4050, L3100.7950, L100.0100, L506.1000 #### [facility] [address] [place], [address] GFR/1.73 sq M.predicted among non-blacks MDRD (S/P/Bld) [Vol rate/Area] 110 mL/min/{1.73_m2} Normal >[address] [facility] Comment on above: Result Comment: Non- GFR Calc Performed By: #### L 500.4050, L3100.7950, L100.0100, L506.1000 #### [facility] [address] [place], [address] Globulin (S) [Mass/Vol] 3.6 g/dL Normal 2.2-4.2 [facility] Comment on above: Performed By: #### L 500.4050, L3100.7950, L100.0100, L506.1000 #### [facility] [address] [place], [address] Glucose [Mass/Vol] 82 mg/dL Normal 74-106 [facility] Comment on above: Performed By: #### L 500.4050, L3100.7950, L100.0100, L506.1000 #### [facility] [address] [place], [address] Potassium [Moles/Vol] 3.6 mmol/L Normal 3.5-5.1 [facility] Comment on above: Performed By: #### L 500.4050, L3100.7950, L100.0100, L506.1000 #### [facility] [address] [place], [address] Sodium [Moles/Vol] 141 mmol/L Normal 136-145 [facility] Comment on above: Performed By: #### L 500.4050, L3100.7950, L100.0100, L506.1000 #### [facility] [address] [place], [address] T PROT 7.5 g/dL Normal 6.4-8.[address] [facility] Comment on above: Performed By: #### L 500.4050, L3100.7950, L100.0100, L506.1000 #### [facility] [address] [place], [address] Urea nitrogen [Mass/Vol] 12 mg/dL Normal 7-[address] [facility] Comment on above: Performed By: #### L 500.4050, L3100.7950, L100.0100, L506.1000 #### [facility] [address] [place], [address] Vitamin D,25 Hydroxyon 11-18 Vitamin D 25-OH 20.8 ng/mL Normal [facility] Comment on above: Result Comment: Penelope min D 25(OH) Status Range Deficiency <20 ng/mL (50nmol/L) Insufficiency 20 - 30 ng/mL (50 - 75 nmol/L) Sufficiency 30 - 100 ng/mL (75 - 250 nmol/L) Toxicity >100 ng/mL (>250 nmol/L) Performed By: #### L 500.4050, L3100.7950, L100.0100, L506.1000 #### [facility] [address] [place], [address] Internal Medicine Office Vis itochantel 11-17-2024 Internal Medicine Office Visit [facility] [address] [place] [address] [address] [place] [address] OFFICE VISIT Date of Service: 11/18/24 MR#: [id number] Acct: [id number] Name: NAYELI HERNANDEZ Rep #: [id number] : 1995 Provider: Dr. Laureen gomez MD Age/Sex: 29/F Location: [facility] Status: Signed Intake Vital Signs 02/24/24 10:57 [...] Intake Visit Reasons: EST NEW PT - PT Chief Complaint: establishing needs medication refills Technical Photographer Required: No Accompanied by: Self Is patient in pain?: No Allergies No Known Allergies Allergy (Verified 11/18/24 08:45) Medications ???Medication ???Instructions ???Recorded ???Confirmed ???Type kcgmtrwn-sdg-Ip-FA 1 mg 1 tab PO DAILY 04/23/22 [...] past year?: No Nurse's Note: leaving for [facility] next month asking if there is anything she needs to do before leaving [facility] etc?? 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 Normal [facility] Progress Noteon 04-22-2024 Manager Nicu Authentication Interface Message Text Assessment Patient: Nayeli [...] but sometimes both breasts. 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 Usually one pump overnight yields 8oz or so. She does not have any pain with nursing, even at the beginning after . No pain with pumping either. Gissel was born at [place] at 37+4 weeks, IOL for oligo. Otherwise [...] feed Exam: Nipple exam pre-feed: - Right: [place] and everted - Left: [place] and everted Nipple exam post-feed: N/a did not feed Breast exam: - Right: normal shape, tissue extends to sternum, no erythema or edema, no mass - Left: normal shape, tissue extends to sternum, no erythema or edema, no mass Normal [facility] Absolute lymphocyte countOrd ered By: Radha Villalobos on 01-13-2024 Lymphocytes Auto (Unsp spec) [#/Vol] 1.61 10*3/uL 0.83-4.[address] [facility] Automated lymphocyte count a s percentage of total leukocytesOrdered By: Radha Villalobos on 01-13-2024 Lymphocytes/100 WBC Auto (Unsp spec) 20.4 % 19-[address] [facility] Basophil percentageOrdered B y: Radha Villalobos on 01-13-2024 Basophils/100 WBC (Bld) 0.3 % 0-1 [facility] Eosinophils/100 WBC (Bld) 1.0 % 0-[address] [facility] Hemoglobin (Bld) [Mass/Vol] 11.4 g/dL 12.0-15.[address] [facility] Monocytes/100 WBC (Bld) 5.2 % 0-10 [facility] Neutrophils (Bld) [#/Vol] 5.8 10*3/uL 2.0-7.[address] [facility] Neutrophils/100 WBC (Bld) 72.7 % 47-[address] [facility] WBC (Bld) [#/Vol] 7.9 10*3/uL 4.4-11.0 [facility] Determination of erythrocyte mean corpuscular volume (MCV)Ordered By: Radha Villalobos on 01-13-2024 MCV (RBC) [Entitic vol] 87.3 fL 81-99 [facility] Erythrocyte distribution wid th ratioOrdered By: Radha Villalobos on 01-13-2024 Erythrocyte distribution width (RBC) [Ratio] 14.3 % 11.6-14.[address] [facility] Erythrocyte distribution wid th standard deviationOrdered By: Radha Villalobos on 01-13-2024 Erythrocyte distribution width (RBC) [Entitic vol] 45.1 fL 35.1-43.[address] [facility] Hematocrit Auto (Bld) [Volum e fraction]Ordered By: Radha Villalobos on 01-13-2024 Hematocrit (Bld) [Volume fraction] 34.3 % 37-[address] [facility] Immature granulocytes/100 WB C Auto (Bld)Ordered By: Radha Villalobos on 01-13-2024 Immature granulocytes/100 WBC (Bld) 0.400 % 0.0-0.[address] [facility] Comment on above: IG% - Immature Granu locytes (promyelocytes, myelocytes and metamyelocytes) > 1% indicates that a LEFT SHIFT is Present. Laboratory - Hematology and Cell countsOrdered By: Radha Villalobos on 01-13-2024 MCH (RBC) [Entitic mass] 29.0 pg 27.0-32.[address] [facility] MCHC (RBC) [Mass/Vol] 33.2 g/dL 32-36 [facility] Nucleated RBC/100 WBC (Bld) [Ratio] 0 % 0-[address] [facility] Platelet mean volume (Bld) [Entitic vol] 11.6 fL 6.2-12.[address] [facility] Platelets (Bld) [#/Vol] 166 10*3/uL 150-[address] [facility] RBC Auto (Bld) [#/Vol]Ordere d By: Radha Villalobos on 01-13-2024 RBC (Bld) [#/Vol] 3.93 10*6/uL 4.2-5.4 [facility] Serum Treponema species anti body detectionOrdered By: Radha Villalobos on 01-13-2024 Treponema sp Ab Ql (S) Non-Reactive [facility] Laboratory - Chemistry and C hemistry - challengeon 01-08-2024 Glucose Ql (U) Negative [facility] Laboratory - Urinalysison Protein Ql (U) Negative [facility] No Panel InformationOrdered By: Radha Villalobos on 01-08-2024 Group B Streptococcus Culture Group B Beta Streptococcus is not isolated. [facility] Bilirubin Test strip Ql (U)O rdered By: Fanta Zarate on 01-02-2024 Bilirubin Ql (U) Negative Negative [facility] Culture, urineOrdered By: Justin Zarate on 01-02-2024 Bacteria identified Cx Nom (U) Culture exhibits no growth. [facility] Ketones Test strip Ql (U)Ord ered By: Fanta Zarate on 01-02-2024 Ketones Ql (U) 150 mg/dl Negative [facility] Comment on above: CRITICAL VALUE *HCRI TICAL VALUE VERIFIED. CALLED TO ANN KO ()01/02/24 1147 Sagar Guzman.RESULTS READ BACK BY SAME. Nitrite Test strip Ql (U)Ord ered By: Fanta Zarate on 01-02-2024 Nitrite Ql (U) Negative Negative [facility] Protein Test strip Ql (U)Ord ered By: Fanta Zarate on 01-02-2024 Protein Ql (U) Negative Negative [facility] Urine blood detectionOrdered By: Fanta Zarate on 01-02-2024 RBC Ql (U) Negative Negative [facility] Urine clarityOrdered By: Douglas Zarate on 01-02-2024 Clarity (U) Sl. Cloudy Clear [facility] Urine color determinationOrd ered By: Fanta Zarate on 01-02-2024 Color (U) Yellow Yellow [facility] Urine glucose detectionOrder ed By: Fanta Zarate on 01-02-2024 Glucose Ql (U) Normal mg/dl Normal [facility] Urine leukocyte esterase det ection by dipstickOrdered By: Fanta Zarate on 01-02-2024 Leukocyte esterase Test strip Ql (U) 25 /ul Negative [facility] Urine pHOrdered By: Fanta blanchard on 01-02-2024 pH (U) 6.5 [pH] 5.0 - 8.[address] [facility] Urine specific gravity measu rementOrdered By: Fanta Zarate on 01-02-2024 Specific gravity (U) [Rel density] 1.010 1.002-1.[address] [facility] Urine urobilinogen measureme ntOrdered By: Fanta Zarate on 01-02-2024 Urobilinogen Ql (U) Normal mg/dl Normal [facility] Culture, urineOrdered By: Neo Villalobos on 12-11-2023 Bacteria identified Cx Nom (U) Culture exhibits no growth. [facility] Gram stain for investigation of transfusion reactionOrdered By: Radha Villalobos on 12-11-2023 Microscopic observation Gram stain Nom (Unsp spec) [facility] Laboratory - Chemistry and C hemistry - challengeon 12-11-2023 Bilirubin Ql (U) Negative [facility] Glucose Ql (U) Negative [facility] Ketones Ql (U) Negative [facility] pH (U) 6.0 [pH] [facility] Specific gravity (U) [Rel density] 1.[address] [facility] Urobilinogen (U) [Mass/Vol] 0.5287204 mg/dL [facility] Laboratory - Hematology and Cell countson 12-11-2023 Hemoglobin Ql (U) Negative [facility] Laboratory - Specimen inform ationon 12-11-2023 Clarity (U) Clear [facility] Color (U) Yellow [facility] Laboratory - Urinalysison Nitrite Ql (U) Negative [facility] Protein Ql (U) Negative [facility] No Panel InformationOrdered By: Radha Villalobos on 12-11-2023 Genital Culture Neisseria or beta-hemolytic Streptococcus isolated. [facility] No Panel Informationon 12-10 Urine Leukocytes Positive [facility] Laboratory - Chemistry and C hemistry - challengeon 11-28-2023 Glucose Ql (U) Negative [facility] Laboratory - Urinalysison Protein Ql (U) Negative [facility] Laboratory - Chemistry and C hemistry - challengeon 11-13-2023 Glucose Ql (U) Negative [facility] Laboratory - Urinalysison Protein Ql (U) Negative [facility] Gestational diabetes screen 1-hour screen with 50g oral glucose loadOrdered By: Fanta Zarate on 10-17-2023 Glucose 1 Hr post 50 g glucose PO [Mass/Vol] 102 mg/dL 70-[address] [facility] Laboratory - Chemistry and C hemistry - challengeon 10-17-2023 Glucose Ql (U) Negative [facility] Laboratory - Urinalysison Protein Ql (U) Negative [facility] Laboratory - Chemistry and C hemistry - challengeon 10-19-2023 Glucose Ql (U) Negative [facility] Laboratory - Urinalysison Protein Ql (U) Negative [facility] COVID-19 virus antigen assay Ordered By: Scott Artis on 07-12-2023 SARS-CoV-2 (COVID-19) Ag IA.rapid Ql (Resp) [facility] COVID-19 virus antigen assay Ordered By: Scott Artis on 07-11-2023 SARS-CoV-2 (COVID-19) Ag IA.rapid Ql (Resp) [facility] Absolute lymphocyte countOrd ered By: Fanta Zarate on 06-24-2023 Lymphocytes Auto (Unsp spec) [#/Vol] 1.76 10*3/uL 0.83-4.[address] [facility] Basophil percentageOrdered B y: Fanta Zarate on 06-24-2023 Basophils/100 WBC (Bld) 0.7 % 0-1 [facility] Eosinophils/100 WBC (Bld) 2.6 % 0-[address] [facility] Neutrophils (Bld) [#/Vol] 3.7 10*3/uL 2.0-7.[address] [facility] Neutrophils/100 WBC (Bld) 60.6 % 47-[address] [facility] WBC (Bld) [#/Vol] 6.1 10*3/uL 4.4-11.0 [facility] Blood erythrocytes count (nu mber/volume)Ordered By: Fanta Zarate on 06-24-2023 RBC (Bld) [#/Vol] 4.32 10*6/uL 4.2-5.4 [facility] Blood hemoglobin measurement (mass/volume)Ordered By: Fanta Zarate on 06-24-2023 Hemoglobin (Bld) [Mass/Vol] 12.3 g/dL 12.0-15.[address] [facility] Blood lymphocytes/100 leukoc ytesOrdered By: Fanta Zarate on 06-24-2023 Lymphocytes/100 WBC (Bld) 29.0 % 19-[address] [facility] Blood monocytes/100 leukocyt esOrdered By: Fanta Zarate on 06-24-2023 Monocytes/100 WBC (Bld) 6.6 % 0-10 [facility] Blood platelet mean volumeOr dered By: Fanta Zarate on 06-24-2023 Platelet mean volume (Bld) [Entitic vol] 10.3 fL 6.2-12.[address] [facility] Cervical or vagninal specime n microscopic examination by cytology stain (reported asOrdered By: Fanta Zarate on 06-24-2023 Cytology report Cyto stain Doc (Cvx/Vag) Comment . [facility] Comment on above: The Pap smear is [...] rRNA JIMMY+probe Ql (Unsp spec) Negative Negative [facility] Culture, urineOrdered By: Justin Zarate on 06-24-2023 Bacteria identified Cx Nom (U) Culture exhibits no growth. [facility] Bacteria identified Cx Nom (U) Culture exhibits no growth. [facility] Determination of erythrocyte mean corpuscular volume (MCV)Ordered By: Fanta Zarate on 06-24-2023 MCV (RBC) [Entitic vol] 87.3 fL 81-99 [facility] HIV 1 and HIV-2 antibody ass ay with HIV-1 p24 antigen detectionOrdered By: Fanta Zarate on 06-24-2023 HIV 1+2 Ab+HIV1 p24 Ag IA Ql Non-Reactive Nonreactive [facility] Hematocrit Auto (Bld) [Volum e fraction]Ordered By: Fanta Zarate on 06-24-2023 Hematocrit (Bld) [Volume fraction] 37.7 % 37-[address] [facility] Laboratory - CytologyOrdered By: Fanta Zarate on 06-24-2023 Meat Stringer Cyto stain Nom (Cvx/Vag) [ID] Comment . [facility] Comment on above: Penny Heredia, [employer] hnologist (ASCP) Laboratory - Hematology and Cell countsOrdered By: Fanta Zarate on 06-24-2023 Erythrocyte distribution width (RBC) [Entitic vol] 39.6 fL 35.1-43.[address] [facility] Erythrocyte distribution width (RBC) [Ratio] 12.5 % 11.6-14.[address] [facility] Immature granulocytes/100 WBC (Bld) 0.500 % 0.0-0.[address] [facility] Comment on above: IG% - Immature Granu locytes (promyelocytes, myelocytes and metamyelocytes) > 1% indicates that a LEFT SHIFT is Present. MCH (RBC) [Entitic mass] 28.5 pg 27.0-32.[address] [facility] Nucleated RBC/100 WBC (Bld) [Ratio] 0 % 0-[address] [facility] Laboratory - Microbiology an d Antimicrobial susceptibilityOrdered By: Fanta Zarate on 06-24-2023 N. gonorrhoeae DNA JIMMY+probe Ql (Unsp spec) Negative Negative [facility] Comment on above: Performed at: =G - L [address] [id number] Director: Leta Holt MD, Phone: [phone] Laboratory - Miscellaneous t estsOrdered By: Fanta Zarate on 06-24-2023 Service comment (Unsp spec) [Interp] Comment . [facility] Comment on above: This liquid based Th inPrep(R) pap test was screened withthe use of an image guided system. Service comment (Unsp spec) [Interp] . . [facility] MCHC Auto (RBC) [Mass/Vol]Or dered By: Fanta Zarate on 06-24-2023 MCHC (RBC) [Mass/Vol] 32.6 g/dL 32-36 [facility] No Panel InformationOrdered By: Fanta Zarate on 06-24-2023 Human Papillomavirus Screen Comment . [facility] Comment on above: The HPV DNA reflex c riteria were not met with this specimenresult therefore, no HPV testing was performed.Performed at: [facility] [address] [place], [place] [id number] Director: Juan Doyle MD, Phone: [phone] at: - Lab[address] [id number] Director: Leta Holt MD, Phone: [phone] Pathology report final diagnosis Narrative Comment . [facility] Comment on above: NEGATIVE FOR INTRAEP ITHELIAL LESION OR MALIGNANCY. Hepatitis B Surface Antigen Non-Reactive Nonreactive [facility] Hepatitis C Antibody Non-Reactive Nonreactive [facility] Comment on above: Non Reactive: < 0.8 Equivocal: >/= 0.8 to < 1.0 Reactive: >/= 1.0The [facility] recommends that a reactive/equivocal HCV antibody result be followed up by the HCV Nucleic Acid Amplificationtest (528013) Rubella IgG Antibody Reactive Nonreactive [facility] Comment on above: Antibody Results Int erpretation of Immune Status Non Reactive Presumed Non-Immune Equivocal Equivocal Reactive Presumed Immune Platelets bldOrdered By: Douglas Zarate on 06-24-2023 Platelets (Bld) [#/Vol] 219 10*3/uL 150-[address] [facility] Serum Treponema species anti body detectionOrdered By: Fanta Zarate on 06-24-2023 Treponema sp Ab Ql (S) Non-Reactive [facility] Laboratory - Chemistry and C hemistry - challengeon 08-01-2022 Free T4 [Mass/Vol] 0.84 ng/dL 0.76-1.46 [facility] Work Phone: No Panel Informationon 08-01 Thyroid Stimulating Hormone (TSH) 1.19 uIU/mL 0.358-3.[address] [facility] Work Phone: [phone] Absolute lymphocyte counton 06-21-2022 Lymphocytes Auto (Unsp spec) [#/Vol] 1.28 10*3/uL 0.83-4.[address] [facility] Work Phone: Basophil percentageon 2021 Basophils/100 WBC (Bld) 0.3 % 0-1 [facility] Work Phone: Eosinophils/100 WBC (Bld) 1.4 % 0-[address] [facility] Work Phone: Neutrophils (Bld) [#/Vol] 4.3 10*3/uL 2.0-7.[address] [facility] Work Phone: Neutrophils/100 WBC (Bld) 68.8 % 47-[address] [facility] Work Phone: [phone] WBC (Bld) [#/Vol] 6.2 10*3/uL 4.4-11.0 [facility] Work Phone: Blood erythrocytes count (nu mber/volume)on 06-21-2022 RBC (Bld) [#/Vol] 3.88 10*6/uL 4.2-5.4 [facility]: Blood hemoglobin measurement (mass/volume)on 06-21-2022 Hemoglobin (Bld) [Mass/Vol] 10.8 g/dL 12.0-15.[address] [facility] Work Phone: Blood lymphocytes/100 leukoc yteson 06-21-2022 Lymphocytes/100 WBC (Bld) 20.5 % 19-[address] [facility] Work Phone: Blood monocytes/100 leukocyt eson 06-21-2022 Monocytes/100 WBC (Bld) 8.7 % 0-10 [facility] Work Phone: Blood platelet mean volumeon 06-21-2022 Platelet mean volume (Bld) [Entitic vol] 12.7 fL 6.2-12.[address] [facility] Work Phone: Determination of erythrocyte mean corpuscular volume (MCV)on 06-21-2022 MCV (RBC) [Entitic vol] 85.3 fL 81-99 [facility] Work Phone: Hematocrit Auto (Bld) [Volum e fraction]on 06-21-2022 Hematocrit (Bld) [Volume fraction] 33.1 % 37-[address] [facility] Work Phone: [phone] Laboratory - Hematology and Cell countson 06-21-2022 Erythrocyte distribution width (RBC) [Entitic vol] 40.7 fL 35.1-43.[address] [facility] Work Phone: [phone] Erythrocyte distribution width (RBC) [Ratio] 13.5 % 11.6-14.[address] [facility] Work Phone: Immature granulocytes/100 WBC (Bld) 0.300 % 0.0-0.[address] [facility] Work Phone: Comment on above: IG% - Immature Granu locytes (promyelocytes, myelocytes and metamyelocytes) > 1% indicates that a LEFT SHIFT is Present. MCH (RBC) [Entitic mass] 27.8 pg 27.0-32.[address] [facility] Work Phone: Nucleated RBC/100 WBC (Bld) [Ratio] 0 % 0-[address] [facility] Work Phone: MCHC Auto (RBC) [Mass/Vol]on 06-21-2022 MCHC (RBC) [Mass/Vol] 32.6 g/dL 32-36 [facility] Work Phone: Platelets bldon 06-21-2022 Platelets (Bld) [#/Vol] 121 10*3/uL 150-[address] [facility] Work Phone: Basophil percentageon 2021 WBC (Bld) [#/Vol] 8.8 10*3/uL 4.4-11.0 [facility] Work Phone: Blood erythrocytes count (nu mber/volume)on 06-07-2022 RBC (Bld) [#/Vol] 3.98 10*6/uL 4.2-5.4 [facility] Work Phone: Blood hemoglobin measurement (mass/volume)on 06-07-2022 Hemoglobin (Bld) [Mass/Vol] 11.3 g/dL 12.0-15.[address] [facility] Work Phone: Blood platelet mean volumeon 06-07-2022 Platelet mean volume (Bld) [Entitic vol] 12.0 fL 6.2-12.[address] [facility] Work Phone: Determination of erythrocyte mean corpuscular volume (MCV)on 06-07-2022 MCV (RBC) [Entitic vol] 86.4 fL 81-99 [facility] Work Phone: Hematocrit Auto (Bld) [Volum e fraction]on 06-07-2022 Hematocrit (Bld) [Volume fraction] 34.4 % 37-[address] [facility] Work Phone: Laboratory - Hematology and Cell countson 06-07-2022 Erythrocyte distribution width (RBC) [Entitic vol] 41.1 fL 35.1-43.[address] [facility] Work Phone: Erythrocyte distribution width (RBC) [Ratio] 13.3 % 11.6-14.[address] [facility] Work Phone: MCH (RBC) [Entitic mass] 28.4 pg 27.0-32.[address] [facility] Work Phone: MCHC Auto (RBC) [Mass/Vol]on 06-07-2022 MCHC (RBC) [Mass/Vol] 32.8 g/dL 32-36 [facility] Work Phone: No Panel Informationon 06-07 Vaginal Amniotic Fluid Detection Negative Negative [facility] Work Phone: Comment on above: Amniotic fluid not p resent indicates No Rupture of FetalMembranes at time of specimen collection. Platelets bldon 06-07-2022 Platelets (Bld) [#/Vol] 136 10*3/uL 150-[address] [facility] Work Phone: Bilirubin Test strip Ql (U)o n 04-23-2022 Bilirubin Ql (U) Negative Negative [facility] Work Phone: Ketones Test strip Ql (U)on 04-23-2022 Ketones Ql (U) Negative Negative [facility] Work Phone: Nitrite Test strip Ql (U)on 04-23-2022 Nitrite Ql (U) Negative Negative [facility] Work Phone: Protein Test strip Ql (U)on 04-23-2022 Protein Ql (U) Negative Negative [facility] Work Phone: Urine blood detectionon 04-06 RBC Ql (U) 10 /ul Negative [facility] Work Phone: Urine clarityon 04-23-2022 Clarity (U) Sl. Cloudy Clear [facility] Work Phone: Urine color determinationon 04-23-2022 Color (U) Yellow Yellow [facility] Work Phone: Urine glucose detectionon Glucose Ql (U) Normal mg/dl Normal [facility] Work Phone: Urine leukocyte esterase det ection by dipstickon 04-23-2022 Leukocyte esterase Test strip Ql (U) 500 /ul Negative [facility] Work Phone: Urine pHon 04-23-2022 pH (U) 7.0 [pH] 5.0 - 8.[address] [facility] Work Phone: Urine specific gravity measu rementon 04-23-2022 Specific gravity (U) [Rel density] 1.005 1.002-1.[address] [facility] Work Phone: Urobilinogen Auto test strip Ql (U)on 04-23-2022 Urobilinogen Ql (U) Normal mg/dl Normal [facility] Work Phone: Basophil percentageon 2021 WBC (Bld) [#/Vol] 7.9 10*3/uL 4.4-11.0 [facility] Work Phone: Blood erythrocytes count (nu mber/volume)on 03-27-2022 RBC (Bld) [#/Vol] 4.05 10*6/uL 4.2-5.4 [facility] Work Phone: Blood hemoglobin measurement (mass/volume)on 03-27-2022 Hemoglobin (Bld) [Mass/Vol] 11.9 g/dL 12.0-15.[address] [facility] Work Phone: Blood platelet mean volumeon 03-27-2022 Platelet mean volume (Bld) [Entitic vol] 11.0 fL 6.2-12.[address] [facility] Work Phone: Determination of erythrocyte mean corpuscular volume (MCV)on 03-27-2022 MCV (RBC) [Entitic vol] 89.9 fL 81-99 [facility] Work Phone: Gestational diabetes screen 1-hour screen with 50g oral glucose loadon 03-27-2022 Glucose 1 Hr post 50 g glucose PO [Mass/Vol] 93 mg/dL 70-[address] [facility] Work Phone: Hematocrit Auto (Bld) [Volum e fraction]on 03-27-2022 Hematocrit (Bld) [Volume fraction] 36.4 % 37-[address] [facility] Work Phone: Laboratory - Hematology and Cell countson 03-27-2022 Erythrocyte distribution width (RBC) [Entitic vol] 43.7 fL 35.1-43.[address] [facility] Work Phone: Erythrocyte distribution width (RBC) [Ratio] 13.3 % 11.6-14.[address] [facility] Work Phone: MCH (RBC) [Entitic mass] 29.4 pg 27.0-32.[address] [facility] Work Phone: MCHC Auto (RBC) [Mass/Vol]on 03-27-2022 MCHC (RBC) [Mass/Vol] 32.7 g/dL 32-36 [facility] Work Phone: Platelets bldon 03-27-2022 Platelets (Bld) [#/Vol] 178 10*3/uL 150-[address] [facility] Work Phone: NOVEL CORONAVIRUSon 05-29-20 21 NARRATIVE This test was perfor med using isothermal JIMMY and has been approved as Emergency Use Authorization (EUA) for the qualitative detection ckHYUP-NsH-7 nucleic acid. Normal [facility] Comment on above: Performed By: #### C OVID #### Testing performed at [address] [address] SARS-CoV-2 (COVID-19) RNA JIMMY+probe Ql (Unsp spec) Not detected Normal NOT DETECTED [facility] Comment on above: Result [...] #### C OVID #### Testing performed at [address] [address] NOVEL CORONAVIRUSon 05-25-20 21 NARRATIVE This test was perfor med using isothermal JIMMY and has been approved as Emergency Use Authorization (EUA) for the qualitative detection ooCNPB-UsH-3 nucleic acid. Normal [facility] Comment on above: Performed By: #### C OVID #### Testing performed at [address] [address] SARS-CoV-2 (COVID-19) RNA JIMMY+probe Ql (Unsp spec) Not detected Normal NOT DETECTED [facility] Comment on above: Result [...] #### C OVID #### Testing performed at [address] [address] URINE CULTUREon 02-27-2021 Bacteria identified Cx Nom (U) SPECIMEN DESCRIPTION URINE CLEAN CATCH UA DIPSTICK LEUKOCYTE POSITIVE * Result Note: NITRITE NEGATIVE * CULTURE NO PATHOGENS ISOLATED * Result Note: Testing performed at [place], [place] [address] * REPORT STATUS 03/01/2021 * Result Note: FINAL * Normal [facility] Comment on above: Performed By: #### A URNC #### Testing performed at [address] [place] [address] Testing performed at [address] [address] URINE MACROSCOPICon 02-28-20 21 Bilirubin Ql (U) Negative Normal NEGATIVE [facility] Comment on above: Performed By: #### U MAC, UMIC #### Testing performed at [address] [address] Clarity (U) CLEAR Normal CLEAR [facility] Comment on above: Performed By: #### U MAC, UMIC #### Testing performed at [address] [address] Color (U) YELLOW Normal YELLOW [facility] Comment on above: Performed By: #### U MAC, UMIC #### Testing performed at [address] [address] Glucose Ql (U) Negative Normal NEGATIVE [facility] Comment on above: Performed By: #### U MAC, UMIC #### Testing performed at [address] [address] pH (U) 5.5 [pH] Normal 5.0-7.0 [facility] Comment on above: Performed By: #### U MAC, UMIC #### Testing performed at [address] [address] URINE HEMOGLOBIN SMALL Abnormal NEGATIVE [facility] Comment on above: Performed By: #### U MAC, UMIC #### Testing performed at [address] [address] URINE KETONE TRACE Abnormal NEGATIVE [facility] Comment on above: Performed By: #### U MAC, UMIC #### Testing performed at [address] [address] URINE LEUKOTEST SMALL Abnormal NEGATIVE [facility] Comment on above: Performed By: #### U MAC, UMIC #### Testing performed at [address] [address] URINE NITRATES Negative Normal NEGATIVE [facility] Comment on above: Performed By: #### U MAC, UMIC #### Testing performed at [address] [address] URINE SPEC GRAVITY >1.030 High 1.010-1.025 [facility] Comment on above: Performed By: #### U MAC, UMIC #### Testing performed at [address] [address] URINE TOTAL PROTEIN Negative Normal NEGATIVE [facility] Comment on above: Performed By: #### U MAC, UMIC #### Testing performed at [address] [address] Urobilinogen Qn (U) 0.2 {Ita'U}/dL Normal 0.2-1.0 [facility] Comment on above: Performed By: #### U MAC, UMIC #### Testing performed at [address] [address] URINE MICROSCOPICon 02-28-20 21 Bacteria LM.HPF (Urine sed) [#/Area] Negative Normal NEGATIVE [facility] Comment on above: Performed By: #### U MAC, UMIC #### Testing performed at [address] [address] CASTS NONE Normal NONE [facility] Comment on above: Performed By: #### U MAC, UMIC #### Testing performed at [address] [address] CRYSTAL NONE Normal [facility] Comment on above: Performed By: #### U MAC, UMIC #### Testing performed at [address] [address] Epithelial cells LM Ql (Urine sed) 1 TO 5 Normal [facility] Comment on above: Performed By: #### U MAC, UMIC #### Testing performed at [address] [address] Mucus Ql (Urine sed) Negative Normal NEGATIVE [facility] Comment on above: Performed By: #### U MAC, UMIC #### Testing performed at [address] [address] URINE COMMENT REFLEX CULTURE PER ESTABLISHED CRITERIA. [facility] Comment on above: Performed By: #### U MAC, UMIC #### Testing performed at [address] [address] URINE RBC'S 1 TO 5 Normal NEGATIVE [facility] Comment on above: Performed By: #### U MAC, UMIC #### Testing performed at [id number] [place] [address] URINE WBC'S 1 TO 5 Normal NEGATIVE [facility] Comment on above: Performed By: #### U CHAMP RASHEED #### Testing performed at [place] [id number] No Panel InformationOrdered By: Sagar Rodriguez on 02-26-2021 [facility] URINALYSIS, MACROOrdered By: Sagar Rodriguez on 02-26-2021 Bilirubin Ql (U) Negative NEGATIVE [facility] Clarity (U) CLEAR CLEAR [facility] Color (U) YELLOW YELLOW [facility] Glucose Test strip (U) [Mass/Vol] Negative NEGATIVE mg/dl [facility] Hemoglobin Ql (U) SMALL Abnormal NEGATIVE [facility] Interpretation and review of laboratory results Abnormal [facility] Ketones (U) [Mass/Vol] TRACE Abnormal NEGAT DUNIA mg/dl [facility] Leukocyte esterase Test strip Ql (U) SMALL Abnormal NEGATIVE [facility] Nitrite Ql (U) Negative NEGATIVE [facility] pH (U) 5.5 [pH] [facility] Protein Ql (U) Negative NEGATIVE mg/dl [facility] Specific gravity (U) [Rel density] >1.030 High [facility] Urobilinogen (U) [Mass/Vol] 0.2 mg/dL [facility] URINE MICROSCOPICOrdered By: Sagar Rodriguez on 02-26-2021 Bacteria LM.HPF (Urine sed) [#/Area] Negative NEGATIVE [facility] Casts LM.LPF (Urine sed) [#/Area] NONE NONE /LPF [facility] Crystals LM Nom (Urine sed) NONE NONE [facility] Epithelial cells LM Ql (Urine sed) 1 TO 5 /HPF [facility] Mucus Ql (Urine sed) Negative NEGATIVE [facility] RBC LM.HPF (Urine sed) [#/Area] 1 TO 5 NEGATIVE /HPF [facility] Urine sediment comments LM Linus (Urine sed) REFLEX CULTURE PER ESTABLISHED CRITERIA. [facility] WBC LM.HPF (Urine sed) [#/Area] 1 TO 5 NEGATIVE /HPF [facility] CBCon 02-13-2021 ABSOLUTE BAS 0.1 10*3/uL Normal 0.0-0.2 [facility] Comment on above: Result Comment: Test ing performed at [place] [address] Performed By: #### R TOXRWANDAAC, UMIC #### Testing performed at [address] [address] ABSOLUTE EOS 0.00 10*3/uL Normal 0.0-0.7 [facility] Comment on above: Performed By: #### R TOXR, UMAC, UMIC #### Testing performed at [place] [id number] ABSOLUTE NEUTROPHIL COUNT 13.5 10*3/uL High 1.4-6.5 [facility] Comment on above: Performed By: #### R TOXR, UMAC, UMIC #### Testing performed at [address] [address] Basophils/100 WBC (Bld) 0.4 % Normal 0.0-2.0 [facility] Comment on above: Performed By: #### R TOXR, UMAC, UMIC #### Testing performed at [address] [address] DTYPE AUTO DIFF Normal [facility] Comment on above: Performed By: #### R TOXR, UMAC, UMIC #### Testing performed at [address] [place] [address] Eosinophils/100 WBC (Bld) 0.1 % Normal 0.0-11.0 [facility] Comment on above: Performed By: #### R TOXR, UMAC, UMIC #### Testing performed at [address] [address] Lymphocytes (Bld) [#/Vol] 1.40 10*3/uL Normal 1.2-3.4 [facility] Comment on above: Performed By: #### R TOXR, UMAC, UMIC #### Testing performed at [address] [place] [address] Lymphocytes/100 WBC (Bld) 8.9 % Low 20.0-55.0 [facility] Comment on above: Performed By: #### R TOXR, UMAC, UMIC #### Testing performed at [place] [id number] Monocytes (Bld) [#/Vol] 0.9 10*3/uL High 0.0-0.7 [facility] Comment on above: Performed By: #### R TOXR, UMAC, UMIC #### Testing performed at [place] [id number] Monocytes/100 WBC (Bld) 5.7 % Normal 0.0-10.0 [facility] Comment on above: Performed By: #### R TOXR, UMAC, UMIC #### Testing performed at [place] [id number] Neutrophils/100 WBC (Bld) 84.9 % High 37.0-75.0 [facility] Comment on above: Performed By: #### R TOXR, UMAC, UMIC #### [place] [address] Erythrocyte distribution width (RBC) [Ratio] 14.1 % Normal 11.5-14.5 [facility] Comment on above: Performed By: #### R TOXR, UMAC, UMIC #### [place] [address] Hematocrit (Bld) [Volume fraction] 32.2 % Low 36.0-48.0 [facility] Comment on above: Performed By: #### R TOXR, UMAC, UMIC #### Testing performed at [place] [id number] Hemoglobin (Bld) [Mass/Vol] 10.9 g/dL Low 12.0-16.0 [facility] Comment on above: Performed By: #### R TOXR, UMAC, UMIC #### Testing performed at [place] [id number] MCH (RBC) [Entitic mass] 28.9 pg Normal 26.0-35.0 [facility] Comment on above: Performed By: #### R TOXR, UMAC, UMIC #### Testing performed at [address] [address] MCHC (RBC) [Mass/Vol] 33.8 g/dL Normal 27.0-37.0 [facility] Comment on above: Performed By: #### R TOXR, UMAC, UMIC #### Testing performed at [address] [address] MCV (RBC) [Entitic vol] 85.6 fL Normal 80.0-100.0 [facility] Comment on above: Performed By: #### R TOXR, UMAC, UMIC #### Testing performed at [address] [address] Platelet mean volume (Bld) [Entitic vol] 9.5 fL Normal 7.4-11.0 [facility] Comment on above: Performed By: #### R TOXR, UMAC, UMIC #### Testing performed at [address] [address] Platelets (Bld) [#/Vol] 129 10*3/uL Low 130.0-400.0 [facility] Comment on above: Performed By: #### R TOXR, UMAC, UMIC #### Testing performed at [address] [address] RBC (Bld) [#/Vol] 3.76 10*6/uL Low 4.0-5.4 [facility] Comment on above: Performed By: #### R TOXR, UMAC, UMIC #### Testing performed at [address] [address] WBC (Bld) [#/Vol] 15.9 10*3/uL High 3.6-11.0 [facility] Comment on above: Performed By: #### R TOXR, UMAC, UMIC #### Testing performed at [address] [address] CBCon 02-12-2021 ABSOLUTE BAS 0.1 10*3/uL Normal 0.0-0.2 [facility] Comment on above: Result Comment: Test ing performed at [place] [address] Performed By: #### R TOXR, UMAC, UMIC #### [place] [address] ABSOLUTE EOS 0.10 10*3/uL Normal 0.0-0.7 [facility] Comment on above: Performed By: #### R TOXR, UMAC, UMIC #### [place] [address] ABSOLUTE NEUTROPHIL COUNT 7.6 10*3/uL High 1.4-6.5 [facility] Comment on above: Performed By: #### R TOXR, UMAC, UMIC #### [place] [address] Basophils/100 WBC (Bld) 0.9 % Normal 0.0-2.0 [facility] Comment on above: Performed By: #### R TOXR, UMAC, UMIC #### [place] [address] DTYPE AUTO DIFF Normal [facility] Comment on above: Performed By: #### R TOXR, UMAC, UMIC #### [place] [address] Eosinophils/100 WBC (Bld) 0.6 % Normal 0.0-11.0 [facility] Comment on above: Performed By: #### R TOXR, UMAC, UMIC #### [place] [address] Lymphocytes (Bld) [#/Vol] 2.20 10*3/uL Normal 1.2-3.4 [facility] Comment on above: Performed By: #### R TOXR, UMAC, UMIC #### [place] [address] Lymphocytes/100 WBC (Bld) 20.5 % Normal 20.0-55.0 [facility] Comment on above: Performed By: #### R TOXR, UMAC, UMIC #### [place] [address] Monocytes (Bld) [#/Vol] 0.7 10*3/uL Normal 0.0-0.7 [facility] Comment on above: Performed By: #### R TOXR, UMAC, UMIC #### [place] [address] Monocytes/100 WBC (Bld) 6.3 % Normal 0.0-10.0 [facility] Comment on above: Performed By: #### R TOXR, UMAC, UMIC #### Testing performed at [place] [id number] Neutrophils/100 WBC (Bld) 71.7 % Normal 37.0-75.0 [facility] Comment on above: Performed By: #### R TOXR, UMAC, UMIC #### [place] [address] Erythrocyte distribution width (RBC) [Ratio] 14.0 % Normal 11.5-14.5 [facility] Comment on above: Performed By: #### R TOXR, UMAC, UMIC #### [place] [address] Hematocrit (Bld) [Volume fraction] 36.7 % Normal 36.0-48.0 [facility] Comment on above: Performed By: #### R TOXR, UMAC, UMIC #### [place] [address] Hemoglobin (Bld) [Mass/Vol] 12.4 g/dL Normal 12.0-16.0 [facility] Comment on above: Performed By: #### R TOXR, UMAC, UMIC #### [place] [address] MCH (RBC) [Entitic mass] 28.5 pg Normal 26.0-35.0 [facility] Comment on above: Performed By: #### R TOXR, UMAC, UMIC #### Testing performed at [address] [place] [address] MCHC (RBC) [Mass/Vol] 33.7 g/dL Normal 27.0-37.0 [facility] Comment on above: Performed By: #### R TOXR, UMAC, UMIC #### Testing performed at [place] [id number] MCV (RBC) [Entitic vol] 84.5 fL Normal 80.0-100.0 [facility] Comment on above: Performed By: #### R TOXR, UMAC, UMIC #### [place] [address] Platelet mean volume (Bld) [Entitic vol] 9.1 fL Normal 7.4-11.0 [facility] Comment on above: Performed By: #### R TOXR, UMAC, UMIC #### [place] [address] Platelets (Bld) [#/Vol] 152 10*3/uL Normal 130.0-400.0 [facility] Comment on above: Performed By: #### R TOXR, UMAC, UMIC #### [place] [address] RBC (Bld) [#/Vol] 4.34 10*6/uL Normal 4.0-5.4 [facility] Comment on above: Performed By: #### R TOXR, UMAC, UMIC #### Testing performed at [place] [id number] WBC (Bld) [#/Vol] 10.6 10*3/uL Normal 3.6-11.0 [facility] Comment on above: Performed By: #### R TOXR, UMAC, UMIC #### Testing performed at [place] [id number] NOVEL CORONAVIRUSon 02-13-20 21 NARRATIVE This test was perfor med using isothermal JIMMY and has been approved as Emergency Use Authorization (EUA) for the qualitative detection [id number] nucleic acid. Normal [facility] Comment on above: Result Comment: Test ing performed at [place] [address] Performed By: #### R TOXRTAMANNA UMIC #### [place] [address] SARS-CoV-2 (COVID-19) RNA JIMMY+probe Ql (Unsp spec) Not detected Normal NOT DETECTED [facility] Comment on above: Result Comment: Nega tive [...] clinically deteriorating. Performed By: #### R TOXR UMACWANDAIC #### [place] [address] TYPE AND SCREEN CROSSMATCH C ONVERTIBLEon 02-12-2021 TYPE AND SCREEN CROSSMATCH CONVERTIBLE UNITS ORDERED 0 WORKUP EXPIRES 02/15/2021,2359 ABO/RH(D) O POSITIVE ANTIBODY SCREEN NEGATIVE ARM BAND NUMBER [id number] Testing performed at [place] [address] Normal [facility] Comment on above: Performed By: #### R TOXR UMCLAUDIO, UMIC #### [place] [address] RAPID TOX SCREEN,URINE WITH REFLEXon 02-11-2021 AMPHETAMINE Negative Normal NEGATIVE [facility] Comment on above: Performed By: #### R TOXR UMAC, UMIC #### [place] [address] BARBITURATES Negative Normal NEGATIVE [facility] Comment on above: Performed By: #### R TOXR, UMAC, UMIC #### [place] [address] BENZODIAZEPINES Negative Normal NEGATIVE [facility] Comment on above: Performed By: #### R TOXR, UMAC, UMIC #### Testing performed at [address] [address] BUPRENORPHINE Negative Normal NEGATIVE [facility] Comment on above: Result Comment: Test ing performed at [place] [address] Performed By: #### R TOXR, UMAC, UMIC #### Testing performed at [address] [address] CANNABINOIDS Negative Normal NEGATIVE [facility] Comment on above: Performed By: #### R TOXR, UMAC, UMIC #### [place] [address] COCAINE Negative Normal NEGATIVE [facility] Comment on above: Performed By: #### R TOXR, UMAC, UMIC #### Testing performed at [place] [id number] METHADONE Negative Normal NEGATIVE [facility] Comment on above: Performed By: #### R TOXR, UMAC, UMIC #### [place] [address] METHAMPHETAMINE Negative Normal NEGATIVE [facility] Comment on above: Performed By: #### R TOXR, UMAC, UMIC #### Testing performed at [address] [place] [address] OPIATES Negative Normal NEGATIVE [facility] Comment on above: Performed By: #### R TOXR, UMAC, UMIC #### Testing performed at [address] [address] OXYCODONE Negative Normal NEGATIVE [facility] Comment on above: Performed By: #### R TOXR, UMAC, UMIC #### [place] [address] PHENCYCLIDINE Negative Normal NEGATIVE [facility] Comment on above: Performed By: #### R TOXR, UMAC, UMIC #### Testing performed at [address], [facility] PROPOXYPHENE Negative Normal NEGATIVE [facility] Comment on above: Performed By: #### R TOXR, UMAC, UMIC #### [place] [address] TRICYCLIC ANTIDEPRESSANTS Negative Normal NEGATIVE [facility] Comment on above: Performed By: #### R TOXR, UMAC, UMIC #### [place] [address] URINE MACROSCOPICon 02-12-20 21 Bilirubin Ql (U) Negative Normal NEGATIVE [facility] Comment on above: Performed By: #### R TOXR, UMAC, UMIC #### [place] [address] Clarity (U) CLEAR Normal CLEAR [facility] Comment on above: Performed By: #### R TOXR, UMAC, UMIC #### [place] [address] Color (U) YELLOW Normal YELLOW [facility] Comment on above: Performed By: #### R TOXR, UMAC, UMIC #### [place] [address] Glucose Ql (U) Negative Normal NEGATIVE [facility] Comment on above: Performed By: #### R TOXR, UMAC, UMIC #### [place] [address] pH (U) 6.0 [pH] Normal 5.0-7.0 [facility] Comment on above: Performed By: #### R TOXR, UMAC, UMIC #### Testing performed at [address] [address] URINE HEMOGLOBIN Negative Normal NEGATIVE [facility] Comment on above: Performed By: #### R TOXR, UMAC, UMIC #### Testing performed at [address] [address] URINE KETONE Negative Normal NEGATIVE [facility] Comment on above: Performed By: #### R TOXR, UMAC, UMIC #### Testing performed at [address] [place] [address] URINE LEUKOTEST LARGE Abnormal NEGATIVE [facility] Comment on above: Result Comment: Test ing performed at [place] [address] Performed By: #### R TOXR, UMAC, UMIC #### [place] [address] URINE NITRATES Negative Normal NEGATIVE [facility] Comment on above: Performed By: #### R TOXR, UMAC, UMIC #### [place] [address] URINE SPEC GRAVITY 1.010 Normal 1.010-1.025 [facility] Comment on above: Performed By: #### R TOXR, UMAC, UMIC #### [place] [address] URINE TOTAL PROTEIN Negative Normal NEGATIVE [facility] Comment on above: Performed By: #### R TOXR, UMAC, UMIC #### [place] [address] Urobilinogen Qn (U) 0.2 {Ita'U}/dL Normal 0.2-1.0 [facility] Comment on above: Performed By: #### R TOXR, UMAC, UMIC #### [place] [address] URINE MICROSCOPICon 02-12-20 21 BACTERIA TRACE Abnormal NEGATIVE [facility] Comment on above: Performed By: #### R TOXR, UMAC, UMIC #### [place] [address] CASTS NONE Normal [facility] Comment on above: Performed By: #### R TOXR, UMAC, UMIC #### [place] [address] CRYSTAL NONE Normal NONE [facility] Comment on above: Performed By: #### R TOXR, UMAC, UMIC #### [place] [address] Epithelial cells LM Ql (Urine sed) 20 TO 30 Normal [facility] Comment on above: Performed By: #### R TOXR, UMAC, UMIC #### [place] [address] Mucus Ql (Urine sed) TRACE Abnormal NEGATIVE [facility] Comment on above: Performed By: #### R TOXR, UMAC, UMIC #### [place] [address] URINE COMMENT POSSIBLY CONTAMINATE D SPECIMEN, CULTURE MUST BE ORDERED SEPARATELY IF DEEMED NECESSARY. Normal [facility] Comment on above: Result Comment: Test ing performed at [place] [address] Performed By: #### R TOXR, UMAC, UMIC #### [place] [address] URINE RBC'S Negative Normal NEGATIVE [facility] Comment on above: Performed By: #### R TOXR, UMAC, UMIC #### [place] [address] URINE WBC'S '5 TO 10 Normal NEGATIVE [facility] Comment on above: Performed By: #### R TOXR, UMAC, UMIC #### [place] [address] CHLAM/GC AMPLIFon 02-10-2021 CHLAMYDIA NUC. AMP Negative Normal [facility] Comment on above: Result Comment: Refe rence range: Negative GONOCOCCUS NUC. AMP Negative Normal [facility] Comment on above: Result Comment: Refe rence range: Negative [facility] AMNISUREon 02-09-2021 AMNISURE Negative Normal NEGATIVE [facility] Comment on above: Result Comment: NO A MNIOTIC FLUID DETECTED Testing performed at [place] [address] Performed By: #### R TOXR, UMAC, UMIC #### [place] [address] FERN TESTon 02-09-2021 FERN TEST Negative Normal [facility] Comment on above: Result Comment: Test ing performed at [place] [address] Performed By: #### R TOXR, UMAC, UMIC #### [place] [address] RAPID TOX SCREEN,URINE WITH REFLEXon 02-09-2021 AMPHETAMINE Negative Normal NEGATIVE [facility] Comment on above: Result Comment: <500 ng/ml CUTOFF Performed By: #### U MAC, RTOXR #### [place] [address] BARBITURATES Negative Normal NEGATIVE [facility] Comment on above: Result Comment: <200 ng/ml CUTOFF Performed By: #### U MAC, RTOXR #### [place] [address] BENZODIAZEPINES Negative Normal NEGATIVE [facility] Comment on above: Result Comment: <150 ng/ml CUTOFF Performed By: #### U MAC, RTOXR #### [place] [address] BUPRENORPHINE Negative Normal NEGATIVE [facility] Comment on above: Result Comment: <10 ng/ml CUTOFF Testing performed at [place] [address] Performed By: #### U MAC, RTOXR #### [place] [address] CANNABINOIDS Negative Normal NEGATIVE [facility] Comment on above: Result Comment: <50 ng/ml CUTOFF Performed By: #### U MAC, RTOXR #### [place] [address] COCAINE Negative Normal NEGATIVE [facility] Comment on above: Result Comment: <150 ng/ml CUTOFF Performed By: #### U MAC, RTOXR #### [place] [address] METHADONE Negative Normal NEGATIVE [facility] Comment on above: Result Comment: <200 ng/ml CUTOFF Performed By: #### U MAC, RTOXR #### [place] [address] METHAMPHETAMINE Negative Normal NEGATIVE [facility] Comment on above: Result Comment: <500 ng/ml CUTOFF Performed By: #### U MAC, RTOXR #### Testing performed at [address] [place] [address] OPIATES Negative Normal NEGATIVE [facility] Comment on above: Result Comment: <100 ng/ml CUTOFF Performed By: #### U MAC, RTOXR #### Testing performed at [address] [place] [address] OXYCODONE Negative Normal NEGATIVE [facility] Comment on above: Result Comment: <100 ng/ml CUTOFF Performed By: #### U MAC, RTOXR #### Testing performed at [address] [place] [address] PHENCYCLIDINE Negative Normal NEGATIVE [facility] Comment on above: Result Comment: <25 ng/ml CUTOFF Performed By: #### U MAC, RTOXR #### Testing performed at [address] [place] [address] PROPOXYPHENE Negative Normal NEGATIVE [facility] Comment on above: Result Comment: <300 ng/ml CUTOFF Performed By: #### U MAC, RTOXR #### Testing performed at [address] [place] [address] TRICYCLIC ANTIDEPRESSANTS Negative Normal NEGATIVE [facility] Comment on above: Result Comment: <300 ng/ml CUTOFF Performed By: #### U MAC, RTOXR #### Testing performed at [address] [place] [address] URINE MACROSCOPICon 02-10-20 21 Bilirubin Ql (U) Negative Normal NEGATIVE [facility] Comment on above: Performed By: #### U MAC, RTOXR #### Testing performed at [address] [place] [address] Clarity (U) CLEAR Normal CLEAR [facility] Comment on above: Performed By: #### U MAC, RTOXR #### Testing performed at [address] [place] [address] Color (U) YELLOW Normal YELLOW [facility] Comment on above: Performed By: #### U MAC, RTOXR #### [place] [address] Glucose Ql (U) Negative Normal NEGATIVE [facility] Comment on above: Performed By: #### U MAC, RTOXR #### [place] [address] pH (U) 7.0 [pH] Normal 5.0-7.0 [facility] Comment on above: Performed By: #### U MAC, RTOXR #### [place] [address] URINE HEMOGLOBIN Negative Normal NEGATIVE [facility] Comment on above: Performed By: #### U MAC, RTOXR #### [place] [address] URINE KETONE Negative Normal NEGATIVE [facility] Comment on above: Performed By: #### U MAC, RTOXR #### [place] [address] URINE LEUKOTEST Negative Normal NEGATIVE [facility] Comment on above: Result Comment: Test ing performed at [place] [address] Performed By: #### U MAC, RTOXR #### [place] [address] URINE NITRATES Negative Normal NEGATIVE [facility] Comment on above: Performed By: #### U MAC, RTOXR #### [place] [address] URINE SPEC GRAVITY 1.020 Normal 1.010-1.025 [facility] Comment on above: Performed By: #### U MAC, RTOXR #### [place] [address] URINE TOTAL PROTEIN Negative Normal NEGATIVE [facility] Comment on above: Performed By: #### U MAC, RTOXR #### [place] [address] Urobilinogen Qn (U) 2.0 {Ita'U}/dL High 0.2-1.0 [facility] Comment on above: Performed By: #### U MAC, RTOXR #### Testing performed at [place] [id number] AMNISURE ROMOrdered By: Pavithra Flower on 02-08-2021 Iezxm-[id number].p lacental Ql (Vag fld) Negative NEGATIVE [facility] Comment on above: NO AMNIOTIC FLUID DE TECTED Testing performed at [place] [address] [facility] FERN TEST VAGINAL FLUIDOrder ed By: Nehal lFower on 02-08-2021 Crystals LM Nom (Amn fld) Negative [facility] Comment on above: Testing performed at [place] [address] [facility] RAPID TOX SCREEN WITH RELEX TO DRUGMCOrdered By: Nehal Flower on 02-08-2021 Amphetamine (U) [Mass/Vol] Negative NEGATIVE NG/ML [facility] Comment on above: <500 ng/ml [...] above: <10 ng/ml CUTOFF Testing performed at [place] [address] Cannabinoids Screen Ql (U) Negative NEGATIVE NG/ML [facility] Comment on above: <50 ng/ml CUTOFF Methadone Screen Ql (U) Negative NEGA TIVE NG/ML [facility] Comment on above: <200 ng/ml CUTOFF Methamphetamine (U) [Mass/Vol] Negative NEGATIVE NG/ML [facility] Comment on above: <500 ng/ml CUTOFF Opiates Screen Ql (U) Negative NEGATI VE NG/ML [facility] Comment on above: <100 ng/ml CUTOFF oxyCODONE Ql (U) Negative NEGATIVE NG/ML [facility] Comment on above: <100 ng/ml CUTOFF Phencyclidine Screen method >25 ng/mL Ql (U) Negative NEGATIVE NG/ML [facility] Comment on above: <25 ng/ml CUTOFF Propoxyphene+Norpropoxy phene Screen Ql (U) Negative NEGATIVE NG/ML [facility] Comment on above: <300 ng/ml CUTOFF Tricyclic antidepressants Screen Ql (U) Negative NEGATIVE NG/ML [facility] Comment on above: <300 ng/ml CUTOFF [facility] URINALYSIS, MACROOrdered By: Nehal Flower on 02-08-2021 Bilirubin Ql (U) Negative NEGATIVE [facility] Clarity (U) CLEAR CLEAR [facility] Color (U) YELLOW YELLOW [facility] Glucose Test strip (U) [Mass/Vol] Negative NEGATIVE mg/dl [facility] Hemoglobin Ql (U) Negative NEGATIVE [facility] Interpretation and review of laboratory results Abnormal [facility] Ketones (U) [Mass/Vol] Negative NEGAT DUNIA mg/dl [facility] Leukocyte esterase Test strip Ql (U) Negative NEGATIVE [facility] Comment on above: Testing performed at [facility], [place], [place] [address] Nitrite Ql (U) Negative NEGATIVE [facility] pH (U) 7.0 [pH] [facility] Protein Ql (U) Negative NEGATIVE mg/dl [facility] Specific gravity (U) [Rel density] 1.020 [facility] Urobilinogen (U) [Mass/Vol] 2.0 mg/dL High [facility] Heart R-R duration USO rdered By: Mady Amor on 02-07-2021 Mady Amor MD 02/07/2021 12:14 PM Non-stress Test Gestational age: 38w2d Indication: Rule out labor Baseline: 135 bpm 15x15s: present Variability: moderate Decelerations: absent Contractions: q1-2min Duration >20 minutes Comments: REACTIVE 02/07/21 Mady Amor MD [facility] Mady Amor MD - 02/07/2021 10:20 AM EDT Non-stress Test Gestational age: 38w2d Indication: Rule out labor Baseline: 135 bpm 15x15s: present Variability: moderate Decelerations: absent Contractions: q1-2min Duration >20 minutes Comments: REACTIVE 02/07/21 Mady Amor MD [facility] NOVEL CORONAVIRUSon 05-04-20 21 NARRATIVE This test was perfor med using isothermal JIMMY and has been approved as Emergency Use Authorization (EUA) for the qualitative detection [id number] nucleic acid. Normal [facility] Comment on above: Result Comment: Test ing performed at [place] [address] Performed By: #### C OVID #### [place] [address] SARS-CoV-2 (COVID-19) RNA JIMMY+probe Ql (Unsp spec) Not detected Normal NOT DETECTED [facility] Comment on above: Result Comment: Nega tive [...] #### C OVID #### [place] [address] RAPID TOX SCREEN,URINE WITH REFLEXon 02-07-2021 AMPHETAMINE Negative Normal NEGATIVE [facility] Comment on above: Result Comment: <500 ng/ml CUTOFF Performed By: #### R TOXR, UMAC, UMIC #### [place] [address] BARBITURATES Negative Normal NEGATIVE [facility] Comment on above: Result Comment: <200 ng/ml CUTOFF Performed By: #### R TOXR, UMAC, UMIC #### [place] [address] BENZODIAZEPINES Negative Normal NEGATIVE [facility] Comment on above: Result Comment: <150 ng/ml CUTOFF Performed By: #### R TOXR, UMAC, UMIC #### [place] [address] BUPRENORPHINE Negative Normal NEGATIVE [facility] Comment on above: Result Comment: <10 ng/ml CUTOFF Testing performed at [place] [address] Performed By: #### R TOXR, UMAC, UMIC #### [place] [address] CANNABINOIDS Negative Normal NEGATIVE [facility] Comment on above: Result Comment: <50 ng/ml CUTOFF Performed By: #### R TOXR, UMAC, UMIC #### [place] [address] COCAINE Negative Normal NEGATIVE [facility] Comment on above: Result Comment: <150 ng/ml CUTOFF Performed By: #### R TOXR, UMAC, UMIC #### [place] [address] METHADONE Negative Normal NEGATIVE [facility] Comment on above: Result Comment: <200 ng/ml CUTOFF Performed By: #### R TOXR, UMAC, UMIC #### [place] [address] METHAMPHETAMINE Negative Normal NEGATIVE [facility] Comment on above: Result Comment: <500 ng/ml CUTOFF Performed By: #### R TOXR, UMAC, UMIC #### [place] [address] OPIATES Negative Normal NEGATIVE [facility] Comment on above: Result Comment: <100 ng/ml CUTOFF Performed By: #### R TOXR, UMAC, UMIC #### [place] [address] OXYCODONE Negative Normal NEGATIVE [facility] Comment on above: Result Comment: <100 ng/ml CUTOFF Performed By: #### R TOXR, UMAC, UMIC #### [place] [address] PHENCYCLIDINE Negative Normal NEGATIVE [facility] Comment on above: Result Comment: <25 ng/ml CUTOFF Performed By: #### R TOXR, UMAC, UMIC #### [place] [address] PROPOXYPHENE Negative Normal NEGATIVE [facility] Comment on above: Result Comment: <300 ng/ml CUTOFF Performed By: #### R TOXR, UMAC, UMIC #### Testing performed at [place] [id number] TRICYCLIC ANTIDEPRESSANTS Negative Normal NEGATIVE [facility] Comment on above: Result Comment: <300 ng/ml CUTOFF Performed By: #### R TOXR, UMAC, UMIC #### Testing performed at [place] [id number] URINE MACROSCOPICon 02-08-20 21 Bilirubin Ql (U) Negative Normal NEGATIVE [facility] Comment on above: Performed By: #### R TOXR, UMAC, UMIC #### [place] [address] Clarity (U) CLEAR Normal CLEAR [facility] Comment on above: Performed By: #### R TOXR, UMAC, UMIC #### [place] [address] Color (U) YELLOW Normal YELLOW [facility] Comment on above: Performed By: #### R TOXR, UMAC, UMIC #### Testing performed at [place] [id number] Glucose Ql (U) Negative Normal NEGATIVE [facility] Comment on above: Performed By: #### R TOXR, UMAC, UMIC #### [place] [address] pH (U) 7.0 [pH] Normal 5.0-7.0 [facility] Comment on above: Performed By: #### R TOXR, UMAC, UMIC #### Testing performed at [address] [address] URINE HEMOGLOBIN Negative Normal NEGATIVE [facility] Comment on above: Performed By: #### R TOXR, UMAC, UMIC #### Testing performed at [place] [id number] URINE KETONE Negative Normal NEGATIVE [facility] Comment on above: Performed By: #### R TOXR, UMAC, UMIC #### [place] [address] URINE LEUKOTEST SMALL Abnormal NEGATIVE [facility] Comment on above: Result Comment: Test ing performed at [place] [address] Performed By: #### R TOXR, UMAC, UMIC #### [place] [address] URINE NITRATES Negative Normal NEGATIVE [facility] Comment on above: Performed By: #### R TOXR, UMAC, UMIC #### [place] [address] URINE SPEC GRAVITY 1.010 Normal 1.010-1.025 [facility] Comment on above: Performed By: #### R TOXR, UMAC, UMIC #### [place] [address] URINE TOTAL PROTEIN Negative Normal NEGATIVE [facility] Comment on above: Performed By: #### R TOXR, UMAC, UMIC #### [place] [address] Urobilinogen Qn (U) 0.2 {Ita'U}/dL Normal 0.2-1.0 [facility] Comment on above: Performed By: #### R TOXR, UMAC, UMIC #### [place] [address] URINE MICROSCOPICon 02-08-20 21 BACTERIA TRACE Abnormal NEGATIVE [facility] Comment on above: Performed By: #### R TOXR, UMAC, UMIC #### [place] [address] CASTS NONE Normal NONE [facility] Comment on above: Performed By: #### R TOXR, UMAC, UMIC #### [place] [address] CRYSTAL NONE Normal NONE [facility] Comment on above: Performed By: #### R TOXR, UMAC, UMIC #### Testing performed at [place] [id number] Epithelial cells LM Ql (Urine sed) 1 TO 5 Normal [facility] Comment on above: Performed By: #### R TOXR, UMAC, UMIC #### Testing performed at [facility] [address] [place] [address] Mucus Ql (Urine sed) 1+ Abnormal NEGATIVE [facility] Comment on above: Performed By: #### R TOXR, UMAC, UMIC #### [place] [address] URINE COMMENT CULTURE CRITERIA NOT MET, NO CULTURE PERFORMED. Normal [facility] Comment on above: Result Comment: Test ing performed at [place] [address] Performed By: #### R TOXR, UMAC, UMIC #### [place] [address] URINE RBC'S Negative Normal NEGATIVE [facility] Comment on above: Performed By: #### R TOXR, UMAC, UMIC #### [place] [address] URINE WBC'S 1 TO 5 Normal NEGATIVE [facility] Comment on above: Performed By: #### R TOXR, UMAC, UMIC #### [place] [address] NOVEL CORONAVIRUS LAB 1 - NA SOPHARYNGEALOrdered By: Nehal Flower on 02-06-2021 NARRATIVE -1 This test was perfor med using isothermal JIMMY and has been approved as Emergency Use Authorization (EUA) for the qualitative detection [id number] nucleic acid. [facility] Comment on above: Testing performed at [place] [address] SARS-CoV-2 (COVID-19) RNA IJMMY+probe Ql (Unsp spec) Not detected NOT DETECTED [facility] Comment on above: Negative results do not [...] patient is critically ill or clinically deteriorating. [facility] No Panel InformationOrdered By: [employer] on 02-06-2021 Interpretation and review of laboratory results Abnormal [facility] RAPID TOX SCREEN WITH RELEX TO DRUGMCOrdered By: [employer] Fanivette on 02-06-2021 Amphetamine (U) [Mass/Vol] Negative NEGATIVE NG/ML [facility] Comment on above: <500 ng/ml CUTOFF Barbiturates Screen Ql (U) Negative NEGATIVE NG/ML [facility] [email or web address] [facility] Comment on above: <200 ng/ml CUTOFF Benzodiazepines Ql (U) Negative NEGAT DUNIA NG/ML [facility] Comment on above: <150 ng/ml CUTOFF Benzoylecgonine Ql (U) Negative NEGAT DUNIA NG/ML [facility] Comment on above: <150 ng/ml CUTOFF Buprenorphine Ql (U) Negative NEGATIV E NG/ML [facility] [email or web address] [facility] Comment on above: <10 ng/ml CUTOFF Testing performed at [place], [place] [address] Cannabinoids Screen Ql (U) Negative NEGATIVE NG/ML [facility] [email or web address] [facility] Comment on above: <50 ng/ml CUTOFF Methadone Screen Ql (U) Negative NEGA TIVE NG/ML [facility] Comment on above: <200 ng/ml CUTOFF Methamphetamine (U) [Mass/Vol] Negative NEGATIVE NG/ML [facility] Comment on above: <500 ng/ml CUTOFF Opiates Screen Ql (U) Negative NEGATI VE NG/ML [facility] Comment on above: <100 ng/ml CUTOFF oxyCODONE Ql (U) Negative NEGATIVE NG/ML [facility] Comment on above: <100 ng/ml CUTOFF Phencyclidine Screen method >25 ng/mL Ql (U) Negative NEGATIVE NG/ML [facility] Comment on above: <25 ng/ml CUTOFF Propoxyphene+Norpropoxy phene Screen Ql (U) Negative NEGATIVE NG/ML [facility] Comment on above: <300 ng/ml CUTOFF Tricyclic antidepressants Screen Ql (U) Negative NEGATIVE NG/ML [facility] Comment on above: <300 ng/ml CUTOFF [facility] URINALYSIS, MACROOrdered By: Nehal Flower on 02-06-2021 Bilirubin Ql (U) Negative NEGATIVE [facility] Clarity (U) CLEAR CLEAR [facility] Color (U) YELLOW YELLOW [facility] Glucose Test strip (U) [Mass/Vol] Negative NEGATIVE mg/dl [facility] Hemoglobin Ql (U) Negative NEGATIVE [facility] Ketones (U) [Mass/Vol] Negative NEGAT DUNIA mg/dl [facility] Leukocyte esterase Test strip Ql (U) SMALL Abnormal NEGATIVE [facility] Comment on above: Testing performed at [place], [place] [address] Nitrite Ql (U) Negative NEGATIVE [facility] pH (U) 7.0 [pH] [facility] Protein Ql (U) Negative NEGATIVE mg/dl [facility] Specific gravity (U) [Rel density] 1.010 [facility] Urobilinogen (U) [Mass/Vol] 0.2 mg/dL [facility] URINE MICROSCOPICOrdered By: Nehal Flower on 02-06-2021 Bacteria LM.HPF (Urine sed) [#/Area] TRACE Abnormal NEGATIVE [facility] Casts LM.LPF (Urine sed) [#/Area] NONE NONE /LPF [facility] Crystals LM Nom (Urine sed) NONE NONE [facility] Epithelial cells LM Ql (Urine sed) 1 TO 5 /HPF [facility] Mucus Ql (Urine sed) 1+ Abnormal NEGATIVE [facility] RBC LM.HPF (Urine sed) [#/Area] Negative NEGATIVE /HPF [facility] Urine sediment comments LM Linus (Urine sed) CULTURE CRITERIA NOT MET, NO CULTURE PERFORMED. [facility] Comment on above: Testing performed at [place], [place] [address] WBC LM.HPF (Urine sed) [#/Area] 1 TO 5 NEGATIVE /HPF [facility] STREP SCREEN GRP Bon 021 STREP SCREEN GRP B SPECIMEN DESCRIPTION VAGINAL/RECTAL CULTURE STREPTOCOCCUS AGALACTIAE SERO GROUP B * Result Note: THIS STREPTOCOCCI IS PRESUMED TO BE RESISTANT TO CLINDAMYCIN BASED ON THE DETECTION OF INDUCIBLE CLINDAMYCIN RESISTANCE. CLINDAMYCIN MAY STILL BE EFFECTIVE IN SOME PATIENTS. * * Result Note: Testing performed at [place] [address] * REPORT STATUS 01/29/2021 * Result Note: FINAL * ORGANISM STREPTOCOCCUS AGALACTIAE SERO GROUP B * Result Note: STREPTOCOCCUS AGALACTIAE SERO GROUP B * METHOD JESI AMPICILLIN <=0.25 SUSCEPTIBLE CLINDAMYCIN RESISTANT ERYTHROMYCIN >=8 RESISTANT PENICILLIN G <=0.06 SUSCEPTIBLE TETRACYCLINE >=16 RESISTANT VANCOMYCIN 0.5 SUSCEPTIBLE LEVOFLOXACIN 1 SUSCEPTIBLE CEFOTAXIME <=0.12 SUSCEPTIBLE CEFTRIAXONE <=0.12 SUSCEPTIBLE INDUCIBLE CLINDAMYCIN RESISTANCE POSITIVE Normal [facility] Comment on above: Performed By: #### O BSC #### [place] [address] RPRon 11-29-2020 Reagin Ab RPR Ql (S) Non-Reactive Normal NONREACTIVE A [facility] Comment on above: Result Comment: Test ing performed at [place] [address] Performed By: #### R TOXR, UMAC, UMIC #### [place] [address] CBCon 11-28-2020 ABSOLUTE BAS 0.0 10*3/uL Normal 0.0-0.2 [facility] Comment on above: Result Comment: Test ing performed at [place] [address] Performed By: #### R TOXR, UMAC, UMIC #### [place] [address] ABSOLUTE EOS 0.10 10*3/uL Normal 0.0-0.7 [facility] Comment on above: Performed By: #### R TOXR, UMAC, UMIC #### [place] [address] ABSOLUTE NEUTROPHIL COUNT 6.4 10*3/uL Normal 1.4-6.5 [facility] Comment on above: Performed By: #### R TOXR, UMAC, UMIC #### Testing performed at [address] [address] Basophils/100 WBC (Bld) 0.4 % Normal 0.0-2.0 [facility] Comment on above: Performed By: #### R TOXR, UMAC, UMIC #### Testing performed at [address] [address] DTYPE AUTO DIFF Normal [facility] Comment on above: Performed By: #### R TOXR, UMAC, UMIC #### Testing performed at [address] [address] Eosinophils/100 WBC (Bld) 0.9 % Normal 0.0-11.0 [facility] Comment on above: Performed By: #### R TOXR, UMAC, UMIC #### Testing performed at [address] [address] Lymphocytes (Bld) [#/Vol] 1.40 10*3/uL Normal 1.2-3.4 [facility] Comment on above: Performed By: #### R TOXR, UMAC, UMIC #### Testing performed at [address] [address] Lymphocytes/100 WBC (Bld) 16.8 % Low 20.0-55.0 [facility] Comment on above: Performed By: #### R TOXR, UMAC, UMIC #### Testing performed at [address] [address] Monocytes (Bld) [#/Vol] 0.4 10*3/uL Normal 0.0-0.7 [facility] Comment on above: Performed By: #### R TOXR, UMAC, UMIC #### Testing performed at [address] [address] Monocytes/100 WBC (Bld) 4.5 % Normal 0.0-10.0 [facility] Comment on above: Performed By: #### R TOXR, UMAC, UMIC #### Testing performed at [place] [id number] Neutrophils/100 WBC (Bld) 77.4 % High 37.0-75.0 [facility] Comment on above: Performed By: #### R TOXR, UMAC, UMIC #### [place] [address] Erythrocyte distribution width (RBC) [Ratio] 14.0 % Normal 11.5-14.5 [facility] Comment on above: Performed By: #### R TOXR, UMAC, UMIC #### [place] [address] Hematocrit (Bld) [Volume fraction] 34.8 % Low 36.0-48.0 [facility] Comment on above: Performed By: #### R TOXR, UMAC, UMIC #### Testing performed at [place] [id number] Hemoglobin (Bld) [Mass/Vol] 11.7 g/dL Low 12.0-16.0 [facility] Comment on above: Performed By: #### R TOXR, UMAC, UMIC #### Testing performed at [place] [id number] MCH (RBC) [Entitic mass] 30.1 pg Normal 26.0-35.0 [facility] Comment on above: Performed By: #### R TOXR, UMAC, UMIC #### Testing performed at [place] [id number] MCHC (RBC) [Mass/Vol] 33.6 g/dL Normal 27.0-37.0 [facility] Comment on above: Performed By: #### R TOXR, UMAC, UMIC #### Testing performed at [place] [id number] MCV (RBC) [Entitic vol] 89.3 fL Normal 80.0-100.0 [facility] Comment on above: Performed By: #### R TOXR, UMAC, UMIC #### [place] [address] Platelet mean volume (Bld) [Entitic vol] 9.2 fL Normal 7.4-11.0 [facility] Comment on above: Performed By: #### R TOXR, UMAC, UMIC #### [place] [address] Platelets (Bld) [#/Vol] 169 10*3/uL Normal 130.0-400.0 [facility] Comment on above: Performed By: #### R TOXR, UMAC, UMIC #### [place] [address] RBC (Bld) [#/Vol] 3.89 10*6/uL Low 4.0-5.4 [facility] Comment on above: Performed By: #### R TOXR UMAC, UMIC #### [place] [address] WBC (Bld) [#/Vol] 8.3 10*3/uL Normal 3.6-11.0 [facility] Comment on above: Performed By: #### R TOXR UMAC, UMIC #### [place] [address] GLUCOSE POST LOADINGon 11-28 GLUCOSE POST LOADING 126 MG/DL Normal 65-140 [facility] Comment on above: Result Comment: Test ing performed at [place] [address] Performed By: #### R TOXR, UMAC, UMIC #### [place] [address] Glucose 1 Hr post 50 g glucose PO [Mass/Vol] 126 mg/dL [facility] Comment on above: Testing performed at [address] CBCon 11-25-2020 ABSOLUTE BAS 0.0 10*3/uL Normal 0.0-0.2 [facility] Comment on above: Result Comment: Test ing performed at [place] [address] Performed By: #### R TOXR, UMAC, UMIC #### [place] [address] ABSOLUTE EOS 0.10 10*3/uL Normal 0.0-0.7 [facility] Comment on above: Performed By: #### R TOXR, UMAC, UMIC #### [place] [address] ABSOLUTE NEUTROPHIL COUNT 7.7 10*3/uL High 1.4-6.5 [facility] Comment on above: Performed By: #### R TOXR, UMAC, UMIC #### [place] [address] Basophils/100 WBC (Bld) 0.4 % Normal 0.0-2.0 [facility] Comment on above: Performed By: #### R TOXR, UMAC, UMIC #### [place] [address] DTYPE AUTO DIFF Normal [facility] Comment on above: Performed By: #### R TOXR, UMAC, UMIC #### [place] [address] Eosinophils/100 WBC (Bld) 0.9 % Normal 0.0-11.0 [facility] Comment on above: Performed By: #### R TOXR, UMAC, UMIC #### [place] [address] Lymphocytes (Bld) [#/Vol] 2.20 10*3/uL Normal 1.2-3.4 [facility] Comment on above: Performed By: #### R TOXR, UMAC, UMIC #### [place] [address] Lymphocytes/100 WBC (Bld) 20.3 % Normal 20.0-55.0 [facility] Comment on above: Performed By: #### R TOXR, UMAC, UMIC #### [place] [address] Monocytes (Bld) [#/Vol] 0.7 10*3/uL Normal 0.0-0.7 [facility] Comment on above: Performed By: #### R TOXR, UMAC, UMIC #### Testing performed at [address] [address] Monocytes/100 WBC (Bld) 6.5 % Normal 0.0-10.0 [facility] Comment on above: Performed By: #### R TOXR, UMAC, UMIC #### Testing performed at [place] [id number] Neutrophils/100 WBC (Bld) 71.9 % Normal 37.0-75.0 [facility] Comment on above: Performed By: #### R TOXR, UMAC, UMIC #### [place] [address] Erythrocyte distribution width (RBC) [Ratio] 13.4 % Normal 11.5-14.5 [facility] Comment on above: Performed By: #### R TOXR, UMAC, UMIC #### Testing performed at [place] [id number] Hematocrit (Bld) [Volume fraction] 34.4 % Low 36.0-48.0 [facility] Comment on above: Performed By: #### R TOXR, UMAC, UMIC #### Testing performed at [address] [address] Hemoglobin (Bld) [Mass/Vol] 11.9 g/dL Low 12.0-16.0 [facility] Comment on above: Performed By: #### R TOXR, UMAC, UMIC #### Testing performed at [place] [id number] MCH (RBC) [Entitic mass] 30.2 pg Normal 26.0-35.0 [facility] Comment on above: Performed By: #### R TOXR, UMAC, UMIC #### Testing performed at [place] [id number] MCHC (RBC) [Mass/Vol] 34.7 g/dL Normal 27.0-37.0 [facility] Comment on above: Performed By: #### R TOXR, UMAC, UMIC #### [place] [address] MCV (RBC) [Entitic vol] 87.1 fL Normal 80.0-100.0 A [facility] Comment on above: Performed By: #### R TOXR, UMAC, UMIC #### [place] [address] Platelet mean volume (Bld) [Entitic vol] 9.3 fL Normal 7.4-11.0 [facility] Comment on above: Result Comment: Test ing performed at [place] [address] Performed By: #### R TOXR, UMAC, UMIC #### [place] [address] Platelets (Bld) [#/Vol] 176 10*3/uL Normal 130.0-400.0 [facility] Comment on above: Performed By: #### R TOXR, UMAC, UMIC #### [place] [address] RBC (Bld) [#/Vol] 3.95 10*6/uL Low 4.0-5.4 [facility] Comment on above: Performed By: #### R TOXR, UMAC, UMIC #### [place] [address] WBC (Bld) [#/Vol] 10.8 10*3/uL Normal 3.6-11.0 [facility] Comment on above: Performed By: #### R TOXR, UMAC, UMIC #### [place] [address] CMP FASTINGon 11-25-2020 A:G RATIO 1.2 RATIO Low 1.3-2.2 [facility] Comment on above: Performed By: #### R TOXR, UMAC, UMIC #### Testing performed at [address] [place] [address] ALBUMIN 3.4 G/dl Low 3.5-5.0 [facility] Comment on above: Performed By: #### R TOXR, UMAC, UMIC #### Testing performed at [facility] [address] [facility] [place] [address] ALP [Catalytic activity/Vol] 64 U/L Normal 38-126 [facility] Comment on above: Performed By: #### R TOXR, UMAC, UMIC #### Testing performed at [address] [place] [address] ALT [Catalytic activity/Vol] 30 U/L Normal <35 [facility] Comment on above: Performed By: #### R TOXR, UMAC, UMIC #### Testing performed at [address] [place] [address] AST [Catalytic activity/Vol] 35 U/L Normal 14-36 [facility] Comment on above: Performed By: #### R TOXR, UMAC, UMIC #### Testing performed at [address] [place] [address] Bilirubin [Mass/Vol] 0.2 mg/dL Normal 0.2-1.3 [facility] Comment on above: Performed By: #### R TOXR, UMAC, UMIC #### Testing performed at [address] [place] [address] Calcium [Mass/Vol] 9.0 mg/dL Normal 8.4-10.2 [facility] Comment on above: Performed By: #### R TOXR, UMAC, UMIC #### Testing performed at [address] [place] [address] Chloride [Moles/Vol] 103 mmol/L Normal 98-107 [facility] Comment on above: Result Comment: Ellie nieves note: Triglyceride levels of 600mg/dL or higher may positively bias chloride results by approximately 2.1 mmol Performed By: #### R TOXR, UMAC, UMIC #### Testing performed at [address] [place] [address] CO2 [Moles/Vol] 24 mmol/L Normal 22-30 [facility] Comment on above: Performed By: #### R TOXR, UMAC, UMIC #### [place] [address] Creatinine [Mass/Vol] 0.50 mg/dL Low 0.7-1.2 [facility] Comment on above: Performed By: #### R TOXR, UMAC, UMIC #### [place] [address] EST. GFR, >60 Normal [facility] Comment on above: Performed By: #### R TOXR, UMAC, UMIC #### [place] [address] EST. GFR,Non >60 Normal [facility] Comment on above: Performed By: #### R TOXR, UMAC, UMIC #### [place] [address] GFR Information Average GFR for 20-2 9 years old = 116. Normal [facility] Comment on above: Result Comment: [employer] montserrat Kidney disease, GFR = <60. Kidney failure, GFR = <15. The GFR estimate is not adjusted for extreme body surface area or acute process, nor has it been validated for women or ethnic groups other than and . Testing performed at [place] [address] Performed By: #### R TOXR, UMAC, UMIC #### [place] [address] Glucose [Mass/Vol] 90 mg/dL Normal 70-100 [facility] Comment on above: Result Comment: NORMAL <100 mg/dL PREDIABETES 101-126 mg/dL DIABETES 126 mg/dL or higher Performed By: #### R TOXR, UMAC, UMIC #### [place] [address] Potassium [Moles/Vol] 3.2 mmol/L Low 3.5-5.1 [facility] Comment on above: Performed By: #### R TOXR, UMAC, UMIC #### Testing performed at [facility] [address] [place] [address] Protein [Mass/Vol] 6.2 g/dL Low 6.3-8.2 [facility] Comment on above: Performed By: #### R TOXR, UMAC, UMIC #### [place] [address] Sodium [Moles/Vol] 131 mmol/L Low 137-145 [facility] Comment on above: Performed By: #### R TOXR, UMAC, UMIC #### Testing performed at [place] [id number] Urea nitrogen [Mass/Vol] 8 mg/dL Normal 7-20 [facility] Comment on above: Performed By: #### R TOXR, UMAC, UMIC #### [place] [address] CT HEAD WITHOUT CONTRASTon 0 11-25-2020 CT [...] acute intracranial abnormality. 2. Minimal sinusitis. Normal [facility] URINE MACROSCOPICon 11-25-19 21 Bilirubin Ql (U) Negative Normal NEGATIVE [facility] Comment on above: Performed By: #### R TOXR, UMAC, UMIC #### Testing performed at [address] [address] Clarity (U) CLEAR Normal CLEAR [facility] Comment on above: Performed By: #### R TOXR, UMAC, UMIC #### [place] [address] Color (U) YELLOW Normal YELLOW [facility] Comment on above: Performed By: #### R TOXR, UMAC, UMIC #### [place] [address] Glucose Ql (U) Negative Normal NEGATIVE [facility] Comment on above: Performed By: #### R TOXR, UMAC, UMIC #### [place] [address] pH (U) 7.0 [pH] Normal 5.0-7.0 [facility] Comment on above: Performed By: #### R TOXR, UMAC, UMIC #### [place] [address] URINE HEMOGLOBIN Negative Normal NEGATIVE [facility] Comment on above: Performed By: #### R TOXR, UMAC, UMIC #### [place] [address] URINE KETONE Negative Normal NEGATIVE [facility] Comment on above: Performed By: #### R TOXR, UMAC, UMIC #### [place] [address] URINE LEUKOTEST SMALL Abnormal NEGATIVE [facility] Comment on above: Result Comment: Test ing performed at [place] [address] Performed By: #### R TOXR, UMAC, UMIC #### [place] [address] URINE NITRATES Negative Normal NEGATIVE [facility] Comment on above: Performed By: #### R TOXR, UMAC, UMIC #### [place] [address] URINE SPEC GRAVITY 1.015 Normal 1.010-1.025 [facility] Comment on above: Performed By: #### R TOXR, UMAC, UMIC #### Testing performed at [address] [address] URINE TOTAL PROTEIN Negative Normal NEGATIVE [facility] Comment on above: Performed By: #### R TOXR, UMAC, UMIC #### [place] [address] Urobilinogen Qn (U) 0.2 {Ita'U}/dL Normal 0.2-1.0 [facility] Comment on above: Performed By: #### R TOXR, UMAC, UMIC #### [place] [address] URINE MICROSCOPICon 11-25-19 21 Bacteria LM.HPF (Urine sed) [#/Area] Negative Normal NEGATIVE [facility] Comment on above: Performed By: #### R TOXR, UMAC, UMIC #### [place] [address] CASTS NONE Normal NONE [facility] Comment on above: Performed By: #### R TOXR, UMAC, UMIC #### [place] [address] CRYSTAL NONE Normal [facility] Comment on above: Performed By: #### R TOXR, UMAC, UMIC #### [place] [address] Epithelial cells LM Ql (Urine sed) 1 TO 5 Normal [facility] Comment on above: Performed By: #### R TOXR, UMAC, UMIC #### [place] [address] Mucus Ql (Urine sed) Negative Normal NEGATIVE [facility] Comment on above: Performed By: #### R TOXR, UMAC, UMIC #### [place] [address] URINE COMMENT REFLEX CULTURE PER ESTABLISHED CRITERIA. Normal [facility] Comment on above: Result Comment: Test ing performed at [place] [address] Performed By: #### R TOXR, UMAC, UMIC #### Testing performed at [address] [place] [address] URINE RBC'S Negative Normal NEGATIVE [facility] Comment on above: Performed By: #### R TOXR, UMAC, UMIC #### Testing performed at [facility] [address] [place] [address] URINE WBC'S 1 TO 5 Normal NEGATIVE [facility] Comment on above: Performed By: #### R TOXR, UMAC, UMIC #### Testing performed at [place] [id number] CBC, EDIF, PLATELETon 2020 ABSOLUTE BASOPHIL COUNT 0.0 10*3/uL 0.0 - 0.2 10*3/uL [facility] Comment on above: Testing performed at [place] [address] Basophils/100 WBC (Bld) 0.4 % 0.0 - 2.0 % [facility] Differential cell count method Nom (Bld) AUTO DIFF % [facility] Eosinophils (Bld) [#/Vol] 0.10 10*3/uL 0.0 - 0.7 10*3/uL [facility] Eosinophils/100 WBC (Bld) 0.9 % 0.0 - 11.0 % [facility] Erythrocyte distribution width (RBC) [Ratio] 13.4 % 11.5 - 14.5 % [facility] Hematocrit (Bld) [Volume fraction] 34.4 % Low 36.0 - 48.0 % [facility] Hemoglobin (Bld) [Mass/Vol] 11.9 g/dL Low [facility] Interpretation and review of laboratory results Abnormal [facility] Lymphocytes (Bld) [#/Vol] 2.20 10*3/uL 1.2 - 3.4 10*3/uL [facility] Lymphocytes/100 WBC (Bld) 20.3 % 20.0 - 55.0 % [facility] MCH (RBC) [Entitic mass] 30.2 pg 26.0 - 35.0 PG [facility] MCHC (RBC) [Mass/Vol] 34.7 g/dL [facility] MCV (RBC) [Entitic vol] 87.1 fL A [facility] Monocytes (Bld) [#/Vol] 0.7 10*3/uL 0.0 - 0.7 10*3/uL [facility] Monocytes/100 WBC (Bld) 6.5 % 0.0 - 10.0 % [facility] Neutrophils (Bld) [#/Vol] 7.7 10*3/uL High 1.4 - 6.5 10*3/uL [facility] Neutrophils/100 WBC (Bld) 71.9 % 37.0 - 75.0 % [facility] Platelet mean volume (Bld) [Entitic vol] 9.3 fL [facility] Platelets (Bld) [#/Vol] 176 10*3/uL 130. 0 - 400.0 10*3/uL [facility] RBC (Bld) [#/Vol] 3.95 10*6/uL Low 4.0 - 5.4 10*6/uL [facility] WBC (Bld) [#/Vol] 10.8 10*3/uL 3.6 - 11.0 10*3/uL [facility] COMPREHENSIVE METABOLIC PANE Charles 11-24-2020 Albumin [Mass/Vol] 3.4 G/dl Low 3.5 - 5.0 G/dl [facility] Albumin/Globulin [Mass ratio] 1.2 {ratio} Low [facility] ALP [Catalytic activity/Vol] 64 U/L [facility] ALT [Catalytic activity/Vol] 30 U/L <35 IU/L [facility] AST [Catalytic activity/Vol] 35 U/L [facility] Bilirubin [Mass/Vol] 0.2 mg/dL [facility] Calcium [Mass/Vol] 9.0 mg/dL [facility] Chloride [Moles/Vol] 103 mmol/L [facility] Comment on above: Please note: Triglyc eride levels of 600mg/dL or higher may positively bias chloride results by approximately 2.1 mmol CO2 [Moles/Vol] 24 mmol/L [facility] Creatinine [Mass/Vol] 0.50 mg/dL Low [facility] GFR/1.73 sq M predicted among blacks MDRD (S/P/Bld) [Vol rate/Area] mL/min/{1.73_m2} ml/min/1.73sq .m [facility] GFR/1.73 sq M predicted among non-blacks MDRD (S/P/Bld) [Vol rate/Area] mL/min/{1.73_m2} ml/min/1.73sq .m [facility] GFR/1.73 sq M predicted among non-blacks MDRD (S/P/Bld) [Vol rate/Area] Average GFR for 20-29 years old = 116. [facility] Comment on above: Chronic Kidney disea se, GFR = <60. Kidney failure, GFR = <15. The GFR estimate is not adjusted for extreme body surface area or acute process, nor has it been validated for women or ethnic groups other than and . Testing performed at [facility], [place], [place] [address] Glucose post fast [Mass/Vol] 90 mg/dL [facility] Comment on above: NORMAL <100 mg/dL PREDIABETES 101-126 mg/dL DIABETES 126 mg/dL or higher Interpretation and review of laboratory results Abnormal [facility] Potassium [Moles/Vol] 3.2 mmol/L Low [employer] Protein [Mass/Vol] 6.2 g/dL Low [facility] Sodium [Moles/Vol] 131 mmol/L Low [facility] Urea nitrogen [Mass/Vol] 8 mg/dL [facility] CT HEAD WITHOUT CONTRASTon 0 11-24-2020 IMPRESSION: 1. No ac lobito intracranial abnormality. 2. Minimal sinusitis. [facility] User, Interfaces - 11/24/2020 11:10 PM EST [...] No acute intracranial abnormality. 2. Minimal sinusitis. [facility] CT BRAIN WITHOUT CONTRAST HISTORY: Headache, vision [...] AND CALVARIUM: Normal. EXTRACRANIAL SOFT TISSUES: Normal. 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 [id number] Normal [facility] URINALYSIS, MACROon 11-24-19 21 Bilirubin Ql (U) Negative NEGATIVE [facility] Clarity (U) CLEAR CLEAR [facility] Color (U) YELLOW YELLOW [facility] Glucose Test strip (U) [Mass/Vol] Negative NEGATIVE mg/dl [facility] Hemoglobin Ql (U) Negative NEGATIVE [facility] Interpretation and review of laboratory results Abnormal [facility] Ketones (U) [Mass/Vol] Negative NEGAT DUNIA mg/dl [facility] Leukocyte esterase Test strip Ql (U) SMALL Abnormal NEGATIVE [facility] Comment on above: Testing performed at [place], [place] [address] Nitrite Ql (U) Negative NEGATIVE [facility] pH (U) 7.0 [pH] [facility] Protein Ql (U) Negative NEGATIVE mg/dl [facility] Specific gravity (U) [Rel density] 1.015 [facility] Urobilinogen (U) [Mass/Vol] 0.2 [facility] URINE CULTUREon 11-24-2020 Bacteria identified Cx Nom (U) SPECIMEN DESCRIPTION RANDOM URINE UA DIPSTICK NITRITE NEGATIVE * Result Note: LEUKOCYTE POSITIVE * CULTURE NO GROWTH 2 DAYS * Result Note: Testing performed at [place] [address] * REPORT STATUS 11/26/2020 * Result Note: FINAL * Normal [facility] Comment on above: Performed By: #### R TOXR, UMAC, UMIC #### Testing performed at [facility] [address] [place] [address] URINE MICROSCOPICon 11-24-19 21 Bacteria LM.HPF (Urine sed) [#/Area] Negative NEGATIVE [facility] Casts LM.LPF (Urine sed) [#/Area] NONE NONE /LPF [facility] Crystals LM Nom (Urine sed) NONE NONE [facility] Epithelial cells LM Ql (Urine sed) 1 TO 5 /HPF [facility] Mucus Ql (Urine sed) Negative NEGATIVE [facility] RBC LM.HPF (Urine sed) [#/Area] Negative NEGATIVE /HPF [facility] Urine sediment comments LM Linus (Urine sed) REFLEX CULTURE PER ESTABLISHED CRITERIA. [facility] Comment on above: Testing performed at [place] [address] WBC LM.HPF (Urine sed) [#/Area] 1 TO 5 NEGATIVE /HPF [facility] US OB ANATOMYon 10-24-2020 : 1. Single live IUP in Breech position. 2. Normal Anatomy seen. 3. PRANAY by US - 02/18/2021, which is consistent with gestational age. [facility] 20 WEEK OB ULTRASOUN D PROCEDURE REFERRING [...] previa noted. Normal fluid amount noted. FINAL [facility] NOVEL CORONAVIRUSon 09-02-20 20 NARRATIVE This test was perfor med using isothermal JIMMY and has been approved as Emergency Use Authorization (EUA) for the qualitative detection [id number] nucleic acid. Normal [facility] Comment on above: Result Comment: Test ing performed at [place] [address] Performed By: #### R TOXR, UMAC, UMIC #### [place] [address] SARS-CoV-2 (COVID-19) RNA JIMMY+probe Ql (Unsp spec) Not detected Normal NOT DETECTED [facility] Comment on above: Result Comment: Nega tive [...] TOXR, UMAC, UMIC #### [place] [address] US OB DATING ABDOMINAL < 14W EEKSon 06-30-2020 : 1. Single live of 6 weeks and 4 days. 2. heart rate of 122 bpm. 3.US PRANAY 02/19/2021, which is inconsistent with PRANAY by LMP and should be changed. [facility] REFERRING PHYSICIAN: Dr. Madera TECHNOLOGIST: Dorina Felipe PROCEDURE DATE : 06/30/2020 INDICATIONS: Early gestational, dating LMP 04/15/2020, PRANAY 01/20/2021 PROCEDURE DETAILS A single live was noted within the uterus. heart rate of 122 bpm. The CRL measures .65 cm , 6 weeks 4 days. FINAL [facility] ABO/RH(D) TYPINGon 0 ABO and Rh group Nom (Bld ) Testing performed at [address] System ABO and Rh group Nom (Bld ) Positive [facility] ANTIBODY SCREENon 06-24-2020 Blood group antibody screen Ql Negative [facility] EXPIRATION DATE 06/27/2020,2359 [facility] EXPIRATION DATE Testing performed at [place] [id number] [facility] CBC, EDIF, PLATELETon 2019 ABSOLUTE BASOPHIL COUNT 0.0 10*3/uL 0 - 0.2 10*3/uL [facility] Comment on above: Testing performed at [place], [place] [address] Basophils/100 WBC (Bld) 0.5 % 0 - 2 % A [facility] Differential cell count method Nom (Bld) AUTO DIFF % [facility] Eosinophils (Bld) [#/Vol] 0.20 10*3/uL 0 - 0.7 10*3/uL [facility] Eosinophils/100 WBC (Bld) 2.9 % 0 - 11 % [facility] Erythrocyte distribution width (RBC) [Ratio] 12.6 % 11.5 - 14.5 % [facility] Hematocrit (Bld) [Volume fraction] 42.0 % 36 - 48 % [facility] Hemoglobin (Bld) [Mass/Vol] 14.1 g/dL [facility] Lymphocytes (Bld) [#/Vol] 1.60 10*3/uL 1.2 - 3.4 10*3/uL [facility] Lymphocytes/100 WBC (Bld) 22.8 % 20 - 55 % [facility] MCH (RBC) [Entitic mass] 28.8 pg 26 - 35 PG [facility] MCHC (RBC) [Mass/Vol] 33.5 g/dL [facility] MCV (RBC) [Entitic vol] 85.9 fL [facility] Monocytes (Bld) [#/Vol] 0.4 10*3/uL 0 - 0.7 10*3/uL [facility] Monocytes/100 WBC (Bld) 5.6 % 0 - 10 % A [facility] [place] [facility] Neutrophils (Bld) [#/Vol] 4.8 10*3/uL 1.4 - 6.5 10*3/uL [facility] [place] [facility] Neutrophils/100 WBC (Bld) 68.2 % 37 - 75 % [facility] [place] [facility] Platelet mean volume (Bld) [Entitic vol] 8.9 fL [facility] [place] [facility] Platelets (Bld) [#/Vol] 229 10*3/uL 130 - 400 10*3/uL [facility] [place] [facility] RBC (Bld) [#/Vol] 4.88 10*6/uL 4 - 5.4 10*6/uL [facility] WBC (Bld) [#/Vol] 7.1 10*3/uL 3.6 - 11 10*3/uL [facility] TOXICOLOGY DRUG SCREEN, URIN Jonh 06-24-2020 Amphetamine (U) [Mass/Vol] Negative NEGATIVE NG/ML [facility] Comment on above: <500 ng/ml CUTOFF Barbiturates Screen Ql (U) Negative NEGATIVE NG/ML [facility] Comment on above: <200 ng/ml [facility] Benzodiazepines Ql (U) Negative NEGAT DUNIA NG/ML [facility] Comment on above: <150 ng/ml C[facility] Benzoylecgonine Ql (U) Negative NEGAT DUNIA NG/ML [facility] Comment on above: <150 ng/ml [facility] Buprenorphine Ql (U) Negative NEGATIV E NG/ML [facility] Comment on above: <10 ng/ml CUTOFF Testing performed at [place], [place] [address] Cannabinoids Screen Ql (U) Negative NEGATIVE NG/ML [facility] Comment on above: <50 ng/ml CUTOFF Methadone Screen Ql (U) Negative NEGA TIVE NG/ML [facility] Comment on above: <200 ng/ml C[facility] Methamphetamine (U) [Mass/Vol] Negative NEGATIVE NG/ML [facility] Comment on above: <500 ng/ml [facility] Opiates Screen Ql (U) Negative NEGATI VE NG/ML [facility] Comment on above: <100 ng/ml [facility] Oxycodone Ql (U) Negative NEGATIVE NG/ML [facility] Comment on above: <100 ng/ml [facility] Phencyclidine Screen method >25 ng/mL Ql (U) Negative NEGATIVE NG/ML [facility] Comment on above: <25 ng/ml C[facility] Propoxyphene + Norpropoxyphene Screen Ql (U) Negative NEGATIVE NG/ML [facility] Comment on above: <300 ng/ml C[facility] Tricyclic antidepressants Screen Ql (U) Negative NEGATIVE NG/ML [facility] Comment on above: <300 ng/ml C[facility]OFF POCT URINE PREGNANCYon 06-14 HCG.beta subunit Qn Positive [facility] Interpretation and review of laboratory results Normal [facility] HCG QUALITATIVE, URINEon HCG ( test) Ql (U) Negative [facility] Comment on above: Testing performed at [place], [place] [address] NOVEL CORONAVIRUS LAB 1 - NA YAIRon 04-28-2020 NARRATIVE -1 This test was perfor med using real time PCR and has been approved as Emergency Use Authorization (EUA) for the qualitative detection of SARS-CoV-2 nucleic acid. [facility] Comment on above: Testing performed at [place] [id number] SARS COV 2 RNA, QL REAL TIME RT PCR NOT DETECTED NOT DETECTED [facility] Comment on above: Negative results do [...] ABS, IGG 256.0 AU/mL Normal Immune >10.9 [facility] Comment on above: Result Comment: (NOT E) Negative <9.0 Equivocal 9.0 - 10.9 Positive >10.9 A positive result generally indicates past exposure to Mumps virus or previous vaccination. PERFORMED AT [facility] Performed By: #### L MMR #### Testing performed at [facility] [address] [place] [address] [place] [address] RUBEOLA AB, IGG >300.0 Normal Immune >16.4 [facility] Comment on above: Result Comment: (NOT E) Negative <13.5 Equivocal 13.5 - 16.4 Positive >16.4 Presence of antibodies to Rubeola is presumptive evidence of immunity except when acute infection is suspected. Performed By: #### L MMR #### Testing performed at [facility] [address] [facility] [place] [address] RUBELLA AB, IGG 5.50 index Normal Immune >0.99 [facility] Comment on above: Result Comment: (NOT E) Non-immune <0.90 Equivocal 0.90 - 0.99 Immune >0.99 Performed By: #### L MMR #### Testing performed at [address] [address] FAX REQUESTon 09-09-2019 FAX TO [facility] Comment on above: Performed By: #### L MMR #### Testing performed at [address] [address] HEP B SURFACE ABon 9 HEP B SURFACE AB Negative Abnormal POSITIVE [facility] Comment on above: Result Comment: Clinical Interpretation of Immune Status Negative: patient is considered to be not immune to infection with HBV Intermediate: unable to determine if anti-HBs is present at levels consistent with immunity Positive: anti-HBs detected, patient is considered to be immune to infection with HBV Performed By: #### L MMR #### Testing performed at [address] [address] HEP C ABon 09-09-2019 HEP C AB Negative Normal NEGATIVE [facility] Comment on above: Performed By: #### L MMR #### Testing performed at [address] [address] O & P Exam, Routineon 2018 Ova/Para Exam Rt Final report Normal [facility] Comment on above: Order Comment: Order Added by Discern Expert. Result Comment: Thes e results were obtained using wet preparation(s) and trichrome stained smear. This test does not include testing for Cryptosporidium parvum, Cyclospora, or Microsporidia. No ova, cysts, or parasites seen. One negative specimen does not rule out the possibility of a parasitic infection. Performed At: [facility] [address] [place], [place] [id number] Corby Caballero PhD Ph:[phone] Performed By: #### 2 [id number] #### TAMARA Young [address] [place] [address] CHARLES Teston 12-22-2018 CHARLES Test Negative Normal Negative [facility] Comment on above: Result Comment: spec imen found in surgery bucket 12/22/2018 14:07:47 EDT; never brought to lab Performed By: #### 2 [id number] #### TAMARA RemHemo [address] [place] [address] GI Panelon 12-19-2018 Adenovirus F40/41 Not Detected Normal [facility] Comment on above: Order Comment: Order Added by Discern Expert. Performed By: #### 2 [id number] #### TAMARA RemHemo [address] [place] [address] Astrovirus Not Detected Normal [facility] Comment on above: Order Comment: Order Added by Discern Expert. Performed By: #### 2 [id number] #### TAMARA RemHemo [address] [place] [address] Campylobacter Not Detected Normal [facility] Comment on above: Order Comment: Order Added by Discern Expert. Performed By: #### 2 [id number] #### TAMARA RemHemo [address] [place] [id number] Cholesterol mass conc Not Detected Normal [facility] Comment on above: Order Comment: Order Added by Discern Expert. Performed By: #### 2 [id number] #### TAMARA RemHemo [address] [place] [id number] Clostridium difficile toxin A/B Not Detected Normal [facility] Comment on above: Order Comment: Order Added by Discern Expert. Performed By: #### 2 [id number] #### TAMARA RemHemo [address] [place] [id number] Cryptosporidium Not Detected Normal [facility] Comment on above: Order Comment: Order Added by Discern Expert. Performed By: #### 2 [id number] #### TAMARA RemHemo [address] [place] [id number] Cyclospora cayetanensis Not Detected Normal [facility] Comment on above: Order Comment: Order Added by Discern Expert. Performed By: #### 2 [id number] #### TAMARA RemHemo [address] [place] [id number] E coli 0157 Not Detected Normal [facility] Comment on above: Order Comment: Order Added by Discern Expert. Performed By: #### 2 [id number] #### TAMARA RemHemo [address] [place] [id number] Entamoeba histolytica Not Detected Normal [facility] Comment on above: Order Comment: Order Added by Discern Expert. Performed By: #### 2 [id number] #### TAMARA MorochoHemo [address] [place] [id number] Enteroaggregatvie E coli (EAEC) Not Detected Normal [facility] Comment on above: Order Comment: Order Added by Discern Expert. Performed By: #### 2 [id number] #### TAMARA RemHemo [address] [place] [id number] Enteropathogenic E Coli (EPEC) Not Detected Normal [facility] Comment on above: Order Comment: Order Added by Discern Expert. Performed By: #### 2 [id number] #### TAMARA MorochoHemo [address] [place] [id number] Enterotoxigenci E coli (ETEC)lt/st Not Detected [facility] Comment on above: Order Comment: Order Added by Molly Expert. Performed By: #### 2 [id number] #### TAMARA MorochoHemo [address] [place] [id number] Giardia lamblia Not Detected Normal [facility] Comment on above: Order Comment: Order Added by Molly Expert. Performed By: #### 2 [id number] #### TAMARA MorochoHemo [address] [place] [place] [id number] Norovirus GI/GII Not Detected Normal [facility] Comment on above: Order Comment: Order Added by Molly Expert. Performed By: #### 2 [id number] #### TAMARA MorochoHemo [address] [place] [phone] Plesiomonas shigelloides Not Detected Normal [facility] Comment on above: Order Comment: Order Added by Molly Expert. Performed By: #### 2 [id number] #### TAMARA RemHemo [address] [place] [phone] Protein mass conc Not Detected Normal [facility] Comment on above: Order Comment: Order Added by Molly Expert. Performed By: #### 2 [id number] #### TAMARA RemHemo [address] [place] [phone] Rotavirus A Not Detected [facility] Comment on above: Order Comment: [...] of gastrointestinal infection. Performed By: #### 2 [id number] #### TAMARA RemHemo [address] [place] [address] Salmonella Not Detected Normal [facility] Comment on above: Order Comment: Order Added by Discern Expert. Performed By: #### 2 114406 #### TAMARA RemHemo [address] [place] [address] Sapovirus Not Detected Normal [facility] Comment on above: Order Comment: Order Added by Discern Expert. Performed By: #### 2 853436 #### TAMARA RemHemo [address] [place] [address] Shigella/Enteroinvasive E coli (EIEC) Not Detected Normal [facility] Comment on above: Order Comment: Order Added by Discern Expert. Performed By: #### 2 [id number] #### TAMRAA RemHemo [address] [place] [address] Vibrio Not Detected Normal [facility] Comment on above: Order Comment: Order Added by Discern Expert. Performed By: #### 2 114420 #### TAMARA RemHemo [address] [place] [address] Yersinia enterocolitica Not Detected Normal [facility] Comment on above: Order Comment: Order Added by Discern Expert. Performed By: #### 2 296698 #### TAMARA RemHemo [address] [place] [address] XR Upper GI w/ Air Contrast + KUBon 12-17-2018 XR Upper GI w/ Air Contrast + KUB Exam Date/Time: 12/17/2018 09:43 EDT Reason for Exam: Other (please specify) Report STUDY: Double-contrast upper GI series with small-bowel follow-through dated 12/17/2018. INDICATION: Pain. COMPARISON: None. ACCESSION NUMBER(S): [id number] ORDERING CLINICIAN: Love Barnhart TECHNIQUE: [employer] Operator radiograph of the abdomen was obtained. Patient [...] by: Krystian Lepe MD Technologist: TRD Normal [facility] Amylaseon 12-16-2018 Amylase enzyme act/vol 51 Int._Unit/L Normal 29-103 [facility] Comment on above: Performed By: #### 2 610309 #### TAMARA Datalink [address] [place] [address] Auto Diffon 12-16-2018 Basophils #/vol (Bld) 0.0 E3/mcL Normal 0.0-0.2 [facility] Comment on above: Order Comment: Order Added by Discern Expert. Performed By: #### 2 [id number] #### TAMARA RemHemo [address] [place] [address] Basophils/100 WBC (Bld) 0.6 % Normal 0.0-2.0 [facility] Comment on above: Order Comment: Order Added by Discern Expert. Performed By: #### 2 661566 #### TAMARA RemHemo [address] [place] [address] Eos Absolute 0.1 E3/mcL Normal 0.0-0.7 [facility] Comment on above: Order Comment: Order Added by Discern Expert. Performed By: #### 2 645703 #### TAMARA RemHemo [address] [place] [address] Eosinophils/100 WBC (Bld) 0.9 % Normal 0.0-11.0 [facility] Comment on above: Order Comment: Order Added by Discern Expert. Performed By: #### 2 965407 #### TAMARA MorochoHemo [address] [place] [address] Lymphocytes #/vol (Bld) 1.7 E3/mcL Normal 1.2-3.4 [facility] Comment on above: Order Comment: Order Added by Discern Expert. Performed By: #### 2 950276 #### TAMARA MorochoHemo [address] [place] [address] Lymphocytes/100 WBC (Bld) 28.5 % Normal 20.0-55.0 [facility] Comment on above: Order Comment: Order Added by Molly Expert. Performed By: #### 2 393846 #### TAMARA MorochoHemo [address] [place] [address] [place] Absolute 0.4 E3/mcL Normal 0.0-0.7 [facility] Comment on above: Order Comment: Order Added by Discern Expert. Performed By: #### 2 183794 #### TAMARA MorochoHemo [address] [place] [address] Monocytes/100 WBC (Bld) 6.6 % Normal 0.0-10.0 [facility] Comment on above: Order Comment: Order Added by Discern Expert. Performed By: #### 2 786192 #### TAMARA MorochoHemo [address] [place] [address] Neutro Absolute 3.8 E3/mcL Normal 1.4-6.5 [facility] Comment on above: Order Comment: Order Added by Discern Expert. Performed By: #### 2 417904 #### TAMARA MorochoHemo [address] [place] [address] Neutro Auto 63.4 % Normal 37.0-75.0 [facility] Comment on above: Order Comment: Order Added by Molly Expert. Performed By: #### 2 545952 #### TAMARA RemHemo [address] [place] [address] BMPon 12-16-2018 Anion gap molar conc 13 mmol/L Normal 10-20 [facility] Comment on above: Performed By: #### 2 253993 #### TAMARA [employer] [address] [place] [address] Calcium mass conc 9.3 mg/dL Normal 8.6-10.3 [facility] Comment on above: Performed By: #### 2 792735 #### TAMARA [employer] [address] [place] [address] Chloride molar conc 105 mmol/L Normal 98-107 [facility] Comment on above: Performed By: #### 2 413036 #### TAMARA [employer] [address] [place] [address] CO2 molar conc 23.0 mmol/L Normal 21.0-32.0 [facility] Comment on above: Performed By: #### 2 471113 #### [facility] [employer] [address] [place] [address] Creatinine mass conc 0.8 mg/dL Normal 0.5-1.1 [facility] Comment on above: Performed By: #### 2 363930 #### [facility] [employer] [address] [place] [address] Glucose mass conc 66 mg/dL Low 70-99 [facility] Comment on above: Performed By: #### 2 200318 #### [facility] [employer] [address] [place] [address] Potassium molar conc 3.8 mmol/L Normal 3.5-5.3 [facility] Comment on above: Performed By: #### 2 107635 #### [facility] [employer] [address] [place] [address] Sodium molar conc 138 mmol/L Normal 136-145 [facility] Comment on above: Performed By: #### 2 831639 #### TAMARA [employer] [address] [place] [address] Urea nitrogen mass conc 11 mg/dL Normal 6-23 [facility] Comment on above: Performed By: #### 2 235981 #### TAMARA [employer] [address] [place] [address] Urea nitrogen/Creatinine mass ratio 13.8 ratio Normal 5.4-30.0 [facility] Comment on above: Performed By: #### 2 459702 #### TAMARA [employer] [address] [place] [phone] CBC w/ Auto Diffon 9 Erythrocyte distribution width Ratio (RBC) 12.5 % Normal 11.5-14.5 [facility] Comment on above: Performed By: #### 2 238791 #### TAMARA MorochoHemo [facility] [place] 0[address]305 Hematocrit Volume Fraction (Bld) 42.1 % Normal 36.0-48.0 [facility] Comment on above: Performed By: #### 2 379504 #### TAMARA RemHemo [address] [place], [place] [address] Hemoglobin mass conc (Bld) 14.2 g/dL Normal 12.0-16.0 [facility] Comment on above: Performed By: #### 2 381753 #### TAMARA MorochoHemo [address] [place], [place] [address] MCH Entitic mass (RBC) 29.7 pg Normal 27.0-31.0 [facility] Comment on above: Performed By: #### 2 215165 #### TAMARA RemHemo [address] [place] [address] MCHC mass conc (RBC) 33.7 g/dL Normal 33.0-37.0 [facility] Comment on above: Performed By: #### 2 050366 #### TAMARA MorochoHemo [address] [place], [place] [address] MCV Entitic volume (RBC) 88.2 fL Normal 78.0-100.0 [facility] Comment on above: Performed By: #### 2 281071 #### TAMARA RemHemo [address] [place], [place] [address] Platelet mean volume Entitic volume (Bld) 9.1 fL Normal 7.4-11.0 [facility] Comment on above: Performed By: #### 2 193432 #### TAMARA RemHemo [address] [place], [place] [address] Platelets #/vol (Bld) 200 E3/mcL Normal 130-400 [facility] Comment on above: Performed By: #### 2 707471 #### TAMARA RemHemo [address] [place], [place] [address] RBC #/vol (Bld) 4.77 E6/mcL Normal 3.90-5.40 [facility] Comment on above: Performed By: #### 2 811706 #### TAMARA RemHemo [address] [place] [address] WBC #/vol (Bld) 6.0 E3/mcL Normal 3.6-11.0 [facility] Comment on above: Performed By: #### 2 476695 #### TAMARA RemHemo [address] [place] [address] CRPon 12-16-2018 CRP mass conc 1.06 mg/dL High 0.00-1.00 [facility] Comment on above: Performed By: #### 2 764923 #### TAMARA [employer] [address] [place] [address] CT Abdomen/Pelvis w/ Contras ton 12-16-2018 CT Abdomen/Pelvis w/ Contrast Exam Date/Time: 12/16/2018 16:14 EDT Reason for Exam: Abdominal Pain;Other (please specify) Report STUDY: CT Abdomen/Pelvis w/ Contrast; 12/16/2018 4:14 pm INDICATION: Other (please specify). Epigastric pain for 6 days. Pain when swallowing. Recent international travel. COMPARISON: None. ACCESSION NUMBER(S): [id number] ORDERING CLINICIAN: Grant Qureshi TECHNIQUE: Contiguous axial [...] Appendix is normal. No focal diverticular disease. PERITONEUM/RETROPERITON EUM/LYMPH NODES: Trace intrapelvic free fluid is present. [...] process. FINAL REPORT Dictated: 12/16/2018 4:20 pm Sagar Blue MD Signed (Electronic Signature): 12/16/2018 4:20 pm Signed by: Sagar Blue MD Technologist: NAKITA, Liliane [facility] Hep Func Panelon 12-16-2018 Albumin mass conc 4.4 g/dL Normal 3.4-5.0 [facility] Comment on above: Performed By: #### 2 814765 #### [facility] [email or web address] [address] [place] [address] Albumin/Globulin mass ratio 1.8 {ratio} Normal 1.1-1.9 [facility] Comment on above: Performed By: #### 2 446364 #### [facility] [employer] [address] [place] [address] Alk Phos 40 Int._Unit/L Normal 33-110 [facility] Comment on above: Performed By: #### 2 958266 #### [facility] [employer] [address] [place] [address] ALT enzyme act/vol 12 Int._Unit/L Normal 7-45 [facility] Comment on above: Performed By: #### 2 878939 #### TAMARA [employer] [facility] [place] [address] AST enzyme act/vol 15 Int._Unit/L Normal 9-39 [facility] Comment on above: Performed By: #### 2 621715 #### [facility] [employer] [address] [place] [address] Bili Direct 0.17 mg/dL Normal 0.00-0.30 [facility] Comment on above: Performed By: #### 2 459779 #### TAMARA [employer] [address] [place] [address] Bili Indirect 0.47 mg/dL Normal [facility] Comment on above: Result Comment: No e stablished ranges available for the indirect bilirubin Performed By: #### 2 148076 #### TAMARA [employer] [address] [place] [address] Bili Total 0.64 mg/dL Normal 0.00-1.20 [facility] Comment on above: Performed By: #### 2 198597 #### TAMARA [employer] [address] [place], [place] [address] Globulin mass conc (S) 3.0 g/dL Normal 2.0-4.0 [facility] Comment on above: Performed By: #### 2 702395 #### TAMARA [employer] [address] [place] [address] Protein mass conc 6.9 g/dL Normal 6.4-8.2 [facility] Comment on above: Performed By: #### 2 173819 #### TAMARA [employer] [address] [place] [address] Lipase Levelon 12-16-2018 Lipase Lvl 21 Int._Unit/L Normal 9-82 [facility] Comment on above: Performed By: #### 2 935790 #### TAMARA [employer] [address] [place] [address] U BhCG Qlton 12-16-2018 HCG.beta subunit Qn Negative Normal Neg [facility] Comment on above: Performed By: #### 2 360112 #### TAMARA Urinalysis Manual Subsection [address] [place] [address] UA Completeon 12-16-2018 Color Nom (U) Yellow Normal Yellow [facility] Comment on above: Performed By: #### 8 [id number] #### TAMARA Urinalysis Automated Subsection [address] [place], [place] [address] Glucose mass conc (U) Negative Normal Negative [facility] Comment on above: Performed By: #### 8 2017385 #### TAMARA Urinalysis Automated Subsection [address] [place] [address] Ketones Ql (U) 2+ Abnormal Negative [facility] Comment on above: Performed By: #### 8 [id number] #### TAMARA Urinalysis Automated Subsection [address] [place] [address] RBC #/vol (U) 5-10 Abnormal 0-3 [facility] Comment on above: Performed By: #### 8 [id number] #### TAMARA Urinalysis Automated Subsection [facility] [place] [address] UA Blood 1+ Abnormal Negative [facility] Comment on above: Performed By: #### 8 [id number] #### TAMARA Urinalysis Automated Subsection [facility] [place] [address] UA Clarity Clear Normal Clear [facility] Comment on above: Performed By: #### 8 [id number] #### TAMARA Urinalysis Automated Subsection [facility] [place] [address] UA Leuk Est Negative Normal Negative [facility] Comment on above: Performed By: #### 8 [id number] #### TAMARA Urinalysis Automated Subsection [facility] [place] [address] UA Mucous Trace Abnormal Trace [facility] Comment on above: Performed By: #### 8 [id number] #### TAMARA Urinalysis Automated Subsection [facility] [place] [address] UA Nitrite Negative Normal Negative [facility] Comment on above: Performed By: #### 8 [id number] #### TAMARA Urinalysis Automated Subsection [facility] [place] [address] UA pH 5.0 Normal 4.6-8.0 [facility] Comment on above: Performed By: #### 8 [id number] #### TAMARA Urinalysis Automated Subsection [address] [place] [address] UA Protein Negative Normal Negative [facility] Comment on above: Performed By: #### 8 [id number] #### TAMARA Urinalysis Automated Subsection [address] [place] [address] UA Spec Grav 1.024 Normal 1.003-1.030 [facility] Comment on above: Performed By: #### 8 [id number] #### TAMARA Urinalysis Automated Subsection [facility] [place] [address] UA Squam Epithelial 5-10 Abnormal 0-5 [facility] Comment on above: Performed By: #### 8 [id number] #### TAMARA Urinalysis Automated Subsection [address] [place] [address] UA Urobilinogen Negative Normal [facility] Comment on above: Result Comment: Due to a manufacturing issue, low positive urobilinogen results may be fasely positive. Correlate with urine bilirubin and additional clinical/laboratory findings to assess the risk of hemolytic anemia or liver disease. If clinically indicated, repeat testing with an alternate method is available by contacting the laboratory within 24 hours. Performed By: #### 8 [id number] #### TAMARA Urinalysis Automated Subsection [address] [place] [address] Urobilinogen Qn (U) Negative Normal Negative [facility] Comment on above: Performed By: #### 8 [id number] #### TAMARA Urinalysis Automated Subsection [facility] [place] [address] eGFRon 12-16-2018 GFR/1.73 sq M predicted among non-blacks MDRD vol rate/area (S/P/Bld) mL/min/{1.73_m2} Normal [facility] Comment on above: Order Comment: Order added by Discern Expert. Performed By: #### 1 [id number] #### TAMARA [employer] [address] [place] [address] Beta HCG Quant, EDon 019 Beta HCG Quant, ED <0.6 Normal <5.0 [facility] Comment on above: Result Comment: NEGA TIVE Performed By: #### H CGED #### [facility] [employer] [address] [place] [address] CBC and Differentialon 12-15 Abs Baso 0.03 k/uL Normal <0.11 [facility] Comment on above: Performed By: #### C BCDIF, CMP, LIPA #### [facility] [employer] [address] [place], [place] [address] Abs [place] 0.49 k/uL Normal <0.87 [facility] Comment on above: Performed By: #### C BCDIF, CMP, LIPA #### [facility] [address] [place] [phone] Abs Neut 4.23 k/uL Normal 1.45-7.50 [facility] Comment on above: Performed By: #### C BCDIF, CMP, LIPA #### [place] [address] [place] [phone] Absolute nRBC <0.01 Normal <0.01 [facility] Comment on above: Performed By: #### C BCDIF, CMP, LIPA #### [place] [address] [place] [phone] Basophils/100 WBC (Bld) 0.4 % Normal [facility] Comment on above: Performed By: #### C BCDIF, CMP, LIPA #### [place] [phone] DTYPE Auto Diff Normal [facility] Comment on above: Performed By: #### C BCDIF, CMP, LIPA #### [place] [address] [place] [phone] Eosinophils #/vol (Bld) 0.09 10*3/uL Normal <0.46 [facility] Comment on above: Performed By: #### C BCDIF, CMP, LIPA #### [place] [address] [place] [phone] Eosinophils/100 WBC (Bld) 1.3 % Normal [facility] Comment on above: Performed By: #### C BCDIF, CMP, LIPA #### [place] [address] [place] [phone] Erythrocyte distribution width Ratio (RBC) 12.1 % Normal 11.5-15.0 [facility] Comment on above: Performed By: #### C BCDIF, CMP, LIPA #### [place] [address] [place] [phone] Hematocrit Volume Fraction (Bld) 37.7 % Normal 36.0-46.0 [facility] Comment on above: Performed By: #### C BCDIF, CMP, LIPA #### [place] [address] [place] [address] Hemoglobin mass conc (Bld) 13.0 g/dL Normal 11.5-15.5 [facility] Comment on above: Performed By: #### C BCDIF, CMP, LIPA #### [place] [address] Lymphocytes #/vol (Bld) 2.16 10*3/uL Normal 1.00-4.00 [facility] Comment on above: Performed By: #### C BCDIF, CMP, LIPA #### [place] [address] Lymphocytes/100 WBC (Bld) 30.8 % Normal [facility] Comment on above: Performed By: #### C BCDIF, CMP, LIPA #### [place] [address] MCH Entitic mass (RBC) 29.5 pG Normal 26.0-34.0 [facility] Comment on above: Performed By: #### C BCDIF, CMP, LIPA #### [place] [address] MCHC mass conc (RBC) 34.5 g/dL Normal 30.5-36.0 [facility] Comment on above: Performed By: #### C BCDIF, CMP, LIPA #### [place] [address] MCV Entitic volume (RBC) 85.7 fL Normal 80.0-100.0 [facility] Comment on above: Performed By: #### C BCDIF, CMP, LIPA #### [place] [address] Monocytes/100 WBC (Bld) 7.0 % Normal [facility] Comment on above: Performed By: #### C BCDIF, CMP, LIPA #### [place] [address] [place] [address] Neutrophils/100 WBC (Bld) 60.5 % Normal [facility] Comment on above: Performed By: #### C BCDIF, CMP, LIPA #### [place] [address] [place] [address] NRBCs 0.0 /100 WBC Normal 0 [facility] Comment on above: Performed By: #### C BCDIF, CMP, LIPA #### [place] [address] Platelet mean volume Entitic volume (Bld) 10.6 fL Normal 9.0-12.7 [facility] Comment on above: Performed By: #### C BCDIF, CMP, LIPA #### [place] [address] [place] [address] Platelets #/vol (Bld) 217 10*3/uL Normal 150-400 [facility] Comment on above: Performed By: #### C BCDIF, CMP, LIPA #### [place] [address] RBC #/vol (Bld) 4.40 10*6/uL Normal 3.90-5.20 [facility] Comment on above: Performed By: #### C BCDIF, CMP, LIPA #### [place] [address] WBC #/vol (Bld) 7.02 10*3/uL Normal 3.70-11.00 [facility] Comment on above: Performed By: #### C BCDIF, CMP, LIPA #### [place] [address] Comp Metabolic Panelon 12-15 Albumin mass conc 4.3 g/dL Normal 3.9-4.9 [facility] Comment on above: Performed By: #### C BCDIF, CMP, LIPA #### [facility] [address] [place] [phone] ALP enzyme act/vol 40 U/L Normal 34-123 [facility] Comment on above: Performed By: #### C BCDIF, CMP, LIPA #### [facility] [address] [place] [phone] ALT enzyme act/vol 13 U/L Normal 7-38 [facility] Comment on above: Performed By: #### C BCDIF, CMP, LIPA #### [place] [address] [place] [phone] Anion gap molar conc 13 mmol/L Normal 9-18 [facility] Comment on above: Performed By: #### C BCDIF, CMP, LIPA #### [place] [address] [place] [phone] AST enzyme act/vol 15 U/L Normal 13-35 [facility] Comment on above: Performed By: #### C BCDIF, CMP, LIPA #### [facility] [address] [place] [phone] Bilirubin mass conc 0.6 mg/dL Normal 0.2-1.3 [facility] Comment on above: Performed By: #### C BCDIF, CMP, LIPA #### [facility] [address] [place] [phone] Calcium mass conc 9.3 mg/dL Normal 8.5-10.2 [facility] Comment on above: Performed By: #### C BCDIF, CMP, LIPA #### [place] [address] [place] [phone] Chloride molar conc 103 mmol/L Normal 97-105 [facility] Comment on above: Performed By: #### C BCDIF, CMP, LIPA #### [facility] [address] [place] [phone] CO2 molar conc 24 mmol/L Normal 22-30 [facility] Comment on above: Performed By: #### C BCDIF, CMP, LIPA #### [place] [address] [place] [phone] Creatinine mass conc 0.86 mg/dL Normal 0.58-0.96 [facility] Comment on above: Performed By: #### C BCDIF, CMP, LIPA #### [place] [address] [place] [phone] eGFR- Amer. >60 Normal [facility] Comment on above: Performed By: #### C BCDIF, CMP, LIPA #### [place] [address] [place] [phone] GFR/1.73 sq M predicted among non-blacks MDRD vol rate/area (S/P/Bld) mL/min/{1.73_m2} Normal [facility] Comment on above: Result Comment: eGFR (Estimated [...] By: #### C BCDIF, CMP, LIPA #### [place] [address] [place] [phone] Glucose mass conc 92 mg/dL Normal 74-99 [facility] Comment on above: Result Comment: The [place] Diabetes [employer] (ADA) provides guidance for cutoff [...] Standards of Medical Care in Diabetes 2016, [place] [employer]. Diabetes Care. 2016.39(Suppl 1). Performed By: #### C BCDIF, CMP, LIPA #### [facility] [address] [place] [address] Potassium molar conc 3.5 mmol/L Low 3.7-5.1 [facility] Comment on above: Performed By: #### C BCDIF, CMP, LIPA #### [facility] [address] [place] [address] Protein mass conc 6.9 g/dL Normal 6.3-8.0 [facility] Comment on above: Performed By: #### C BCDIF, CMP, LIPA #### [place] [address] [place] [address] Sodium molar conc 140 mmol/L Normal 136-144 [facility] Comment on above: Performed By: #### C BCDIF, CMP, LIPA #### [facility] [address] [place] [address] Urea nitrogen mass conc 7 mg/dL Normal 7-21 [facility] Comment on above: Performed By: #### C BCDIF, CMP, LIPA #### [facility] [address] [place] [address] ED PROV NOTEon 12-15-2018 Protein mass conc HNO ID: [id number] Author: Daniela Walton MD Service: Emergency Medicine [...] SONOGRAPHIC APPEARANCE OF THE RIGHT UPPER QUADRANT. Spd Manager: NANETTE Transcribe Date/Time: Dec 15 2018 3:57A [...] SONOGRAPHIC APPEARANCE OF THE RIGHT UPPER QUADRANT. Spd Manager: NANETTE ? Transcribe Date/Time: Dec 15 2018 ?3:57A Dictated by : NANDO ALICEA MD This [...] QUADRANT ULTRASOUND CLINICAL HISTORY: Patient returned from [place] trip to [facility] with right upper quadrant abdominal pain x4 [...] or torsion. With her recent travel to [facility] considered strongly the possibility of a viral [...] MD Daniela Brown MD 12/15/18 0501 Normal [facility] Lipaseon 12-15-2018 Lipase enzyme act/vol 24 U/L Normal 16-61 [facility] [facility] Comment on above: Performed By: #### C BCDIF, CMP, LIPA #### [facility] [address], [place] [address] US ABD RIGHT UPPER QUADRANTo n 12-15-2018 US ABD RIGHT UPPER QUADRANT * * *Final Report* * * DATE OF EXAM: Dec 15 2018 3:31AM INU 1032 - US ABD RIGHT UPPER QUADRANT / PROCEDURE REASON: RUQ abdominal pain * * * * Physician Interpretation * * * * EXAMINATION: RIGHT UPPER QUADRANT ULTRASOUND CLINICAL HISTORY: Patient returned from [place] trip to [facility] with right upper quadrant abdominal pain x4 [...] SONOGRAPHIC APPEARANCE OF THE RIGHT UPPER QUADRANT. Spd Manager: NANETTE Transcribe Date/Time: Dec 15 2018 3:57A Dictated by : NANDO ALICEA MD This examination was interpreted and the report reviewed and electronically signed by: TONG ALBA MD on Dec 15 2018 4:19AM EST [id number] Normal [facility] Culture, urine Bacteria identified Cx Nom (U) Positive [facility] Work Phone: No Panel Information Group B Streptococcus Culture Streptococcus agalactiae (B) [facility] Work Phone: Vital Signs Date Time Vital Sign Value Performing Clinician Faci lity 06-23-2025 14:14-0400 Body height 157.[address] Laureen Rasmussen MD Work Phone: [facility] 06-23-2025 14:14-0400 Body mass index (BMI) [Ratio] 29.9 kg/m2 Dr. Laureen Rasmussen MD Work Phone: [facility] 06-23-2025 14:14-0400 Body weight 74.[address] Laureen Rasmussen MD Work Phone: [facility] 06-23-2025 14:14-0400 Diastolic blood pressure 75 mm[Hg] Dr. Laureen Rasmussen MD Work Phone: [facility] 06-23-2025 14:14-0400 Systolic blood pressure 113 mm[Hg] Dr. Laureen Rasmussen MD Work Phone: [facility] 05-27-2025 14:55-0400 Body height 157.[address] Laureen Rasmussen MD Work Phone: [facility] 05-27-2025 14:55-0400 Body mass index (BMI) [Ratio] 29.9 kg/m2 Dr. Laureen Rasmussen MD Work Phone: [facility] 05-27-2025 14:55-0400 Body weight 74.[address] Laureen Rasmussen MD Work Phone: [facility] 05-27-2025 14:55-0400 Diastolic blood pressure 71 mm[Hg] Dr. Laureen Rasmussen MD Work Phone: [facility] 05-27-2025 14:55-0400 Systolic blood pressure 106 mm[Hg] Dr. Laureen Rasmussen MD Work Phone: [facility] 01-15-2024 08:37-0400 Body temperature 97.7 [degF] No Primary Care Physician [facility] 01-15-2024 08:37-0400 Diastolic blood pressure 72 mm[Hg] No Primary Care Physician [facility] 01-15-2024 08:37-0400 Heart rate 81 /min No Primary Care Physician [facility] 01-15-2024 08:37-0400 Respiratory rate 16 /min No Primary Care Physician [facility] 01-15-2024 08:37-0400 SaO2% (BldA) [Mass fraction] 99 % No Primary Care Physician [facility] 01-15-2024 08:37-0400 Systolic blood pressure 108 mm[Hg] No Primary Care Physician [facility] 01-14-2024 14:00-0400 Body temperature 98.4 [degF] No Primary Care Physician [facility] 01-14-2024 03:00-0400 Respiratory rate 16 /min No Primary Care Physician [facility] 01-14-2024 02:59-0400 Diastolic blood pressure 58 mm[Hg] No Primary Care Physician [facility] 01-14-2024 02:59-0400 Heart rate 89 /min No Primary Care Physician [facility] 01-14-2024 02:59-0400 Systolic blood pressure 101 mm[Hg] No Primary Care Physician [facility] 01-14-2024 01:25-0400 SaO2% (BldA) [Mass fraction] 99 % No Primary Care Physician [facility] 01-13-2024 12:59-0400 Body height 157.48 cm No Primary Care Physician [facility] 01-13-2024 12:59-0400 Body mass index (BMI) [Ratio] 27.8 kg/m2 No Primary Care Physician [facility] 01-13-2024 12:59-0400 Body weight 68.94 kg No Primary Care Physician [facility] 01-13-2024 12:01-0400 Diastolic blood pressure 75 mm[Hg] No Primary Care Physician [facility] 01-13-2024 12:01-0400 Systolic blood pressure 116 mm[Hg] No Primary Care Physician [facility] 01-13-2024 11:31-0400 Body mass index (BMI) [Ratio] 29.9 kg/m2 No Primary Care Physician [facility] 01-13-2024 11:31-0400 Body weight 74.38 kg No Primary Care Physician [facility] 01-08-2024 14:46-0400 Body mass index (BMI) [Ratio] 29.4 kg/m2 No Primary Care Physician [facility] 01-08-2024 14:46-0400 Body weight 73.02 kg No Primary Care Physician [facility] 01-08-2024 14:46-0400 Diastolic blood pressure 79 mm[Hg] No Primary Care Physician [facility] 01-08-2024 14:46-0400 Systolic blood pressure 114 mm[Hg] No Primary Care Physician [facility] 01-02-2024 11:40-0400 Body height 157.48 cm No Primary Care Physician [facility] 01-02-2024 11:40-0400 Body mass index (BMI) [Ratio] 29.6 kg/m2 No Primary Care Physician [facility] 01-02-2024 11:40-0400 Body weight 73.48 kg No Primary Care Physician [facility] 01-02-2024 11:19-0400 Body temperature 98.1 [degF] No Primary Care Physician [facility] 01-02-2024 11:19-0400 Respiratory rate 18 /min No Primary Care Physician [facility] 01-02-2024 11:18-0400 Diastolic blood pressure 72 mm[Hg] No Primary Care Physician [facility] 01-02-2024 11:18-0400 Heart rate 87 /min No Primary Care Physician [facility] 01-02-2024 11:18-0400 Systolic blood pressure 111 mm[Hg] No Primary Care Physician [facility] 12-11-2023 11:03-0500 Body height 157.48 cm No Primary Care Physician [facility] 12-11-2023 11:02-0500 Body mass index (BMI) [Ratio] 29.3 kg/m2 No Primary Care Physician [facility] 12-11-2023 11:02-0500 Body weight 72.74 kg No Primary Care Physician [facility] 12-11-2023 11:02-0500 Diastolic blood pressure 73 mm[Hg] No Primary Care Physician [facility] 12-11-2023 11:02-0500 Systolic blood pressure 116 mm[Hg] No Primary Care Physician [facility] 11-28-2023 11:27-0500 Diastolic blood pressure 64 mm[Hg] No Primary Care Physician [facility] 11-28-2023 11:27-0500 Systolic blood pressure 103 mm[Hg] No Primary Care Physician [facility] 11-28-2023 11:03-0500 Body mass index (BMI) [Ratio] 28.9 kg/m2 No Primary Care Physician [facility] 11-28-2023 11:03-0500 Body weight 71.66 kg No Primary Care Physician [facility] 11-13-2023 11:48-0500 Body mass index (BMI) [Ratio] 28.5 kg/m2 No Primary Care Physician [facility] 11-13-2023 11:48-0500 Body weight 70.76 kg No Primary Care Physician [facility] 11-13-2023 11:48-0500 Diastolic blood pressure 73 mm[Hg] No Primary Care Physician [facility] 11-13-2023 11:48-0500 Systolic blood pressure 123 mm[Hg] No Primary Care Physician [facility] 10-17-2023 09:11-0500 Body height 157.48 cm No Primary Care Physician [facility] 10-17-2023 09:11-0500 Body mass index (BMI) [Ratio] 28.2 kg/m2 No Primary Care Physician [facility] 10-17-2023 09:11-0500 Body weight 69.96 kg No Primary Care Physician [facility] 10-17-2023 09:11-0500 Diastolic blood pressure 78 mm[Hg] No Primary Care Physician [facility] 10-17-2023 09:11-0500 Systolic blood pressure 126 mm[Hg] No Primary Care Physician [facility] 09-19-2023 15:09-0500 Body mass index (BMI) [Ratio] 28.1 kg/m2 No Primary Care Physician [facility] 09-19-2023 15:09-0500 Body weight 69.85 kg No Primary Care Physician [facility] 09-19-2023 15:09-0500 Diastolic blood pressure 63 mm[Hg] No Primary Care Physician [facility] 09-19-2023 15:09-0500 Systolic blood pressure 99 mm[Hg] No Primary Care Physician [facility] 08-19-2023 14:12-0500 Body mass index (BMI) [Ratio] 27.3 kg/m2 No Primary Care Physician [facility] 08-19-2023 14:12-0500 Body weight 67.75 kg No Primary Care Physician [facility] 08-19-2023 14:12-0500 Diastolic blood pressure 73 mm[Hg] No Primary Care Physician [facility] 08-19-2023 14:12-0500 Systolic blood pressure 110 mm[Hg] No Primary Care Physician [facility] 07-25-2023 09:20-0400 Body height 157.48 cm No Primary Care Physician [facility] 07-25-2023 09:15-0400 Body mass index (BMI) [Ratio] 26.7 kg/m2 No Primary Care Physician [facility] 07-25-2023 09:15-0400 Body weight 66.39 kg No Primary Care Physician [facility] 07-25-2023 09:15-0400 Diastolic blood pressure 77 mm[Hg] No Primary Care Physician [facility] 07-25-2023 09:15-0400 Systolic blood pressure 127 mm[Hg] No Primary Care Physician [facility] 06-24-2023 08:55-0400 Body height 157.[address] Fanta Zarate Work Phone: [facility] 06-24-2023 08:50-0400 Body mass index (BMI) [Ratio] 26.8 kg/m2 Dr. Fanta Zarate Work Phone: [facility] 06-24-2023 08:50-0400 Body weight 66.[address] Fanta Zarate Work Phone: [facility] 06-24-2023 08:50-0400 Diastolic blood pressure 63 mm[Hg] Dr. Fanta Zarate Work Phone: [facility] 06-24-2023 08:50-0400 Systolic blood pressure 110 mm[Hg] Dr. Fanta Zarate Work Phone: [facility] 06-22-2022 15:25-0400 Heart rate 63 /min [facility] Work Phone: 06-22-2022 15:25-0400 SaO2% (BldA) [Mass fraction] 97 % [facility] Work Phone: 06-22-2022 15:24-0400 Diastolic blood pressure 55 mm[Hg] [facility] Work Phone: 06-22-2022 15:24-0400 Systolic blood pressure 105 mm[Hg] [facility] Work Phone: 06-22-2022 15:23-0400 Body temperature 97.3 [degF] [facility] Work Phone: 06-22-2022 11:46-0400 Respiratory rate 18 /min [facility] Work Phone: 06-21-2022 07:27-0400 Body height 157.48 cm [facility] Work Phone: 06-21-2022 07:27-0400 Body mass index (BMI) [Ratio] 29.8 kg/m2 [facility] Work Phone: 06-21-2022 07:27-0400 Body weight 73.93 kg [facility] Work Phone: 06-18-2022 03:42-0400 Body weight 73.3 kg [facility] Work Phone: 06-18-2022 00:43-0400 Diastolic blood pressure 62 mm[Hg] [facility] Work Phone: 06-18-2022 00:43-0400 Heart rate 86 /min [facility] Work Phone: 06-18-2022 00:43-0400 Systolic blood pressure 101 mm[Hg] [facility] Work Phone: 06-18-2022 00:36-0400 SaO2% (BldA) [Mass fraction] 98 % [facility] Work Phone: 06-09-2022 18:38-0400 Heart rate 103 /min [facility] Work Phone: 06-09-2022 18:38-0400 SaO2% (BldA) [Mass fraction] 98 % [facility] Work Phone: 06-09-2022 07:19-0400 Body height 157.48 cm [facility] Work Phone: 06-09-2022 07:19-0400 Body mass index (BMI) [Ratio] 29.5 kg/m2 [facility] Work Phone: 06-09-2022 07:19-0400 Body weight 73.4 kg [facility] Work Phone: 06-09-2022 06:58-0400 Diastolic blood pressure 73 mm[Hg] [facility] Work Phone: 06-09-2022 06:58-0400 Heart rate 95 /min [facility] Work Phone: 06-09-2022 06:58-0400 Systolic blood pressure 121 mm[Hg] [facility] Work Phone: 06-09-2022 06:54-0400 Body temperature 97.6 [degF] [facility] Work Phone: 06-07-2022 15:59-0400 Heart rate 108 /min [facility] Work Phone: 06-07-2022 15:59-0400 SaO2% (BldA) [Mass fraction] 99 % [facility] Work Phone: 06-07-2022 11:15-0400 Body mass index (BMI) [Ratio] 29.5 kg/m2 [facility] Work Phone: 06-07-2022 11:15-0400 Body weight 73.08 kg [facility] Work Phone: 06-07-2022 11:12-0400 Diastolic blood pressure 69 mm[Hg] [facility] Work Phone: 06-07-2022 11:12-0400 Systolic blood pressure 117 mm[Hg] [facility] Work Phone: 04-23-2022 19:49-0400 Body height 157.48 cm [facility] Work Phone: 04-23-2022 19:49-0400 Body mass index (BMI) [Ratio] 28.1 kg/m2 [facility] Work Phone: 04-23-2022 19:49-0400 Body weight 69.76 kg [facility] Work Phone: 04-23-2022 19:31-0400 Diastolic blood pressure 67 mm[Hg] [facility] Work Phone: 04-23-2022 19:31-0400 Heart rate 73 /min [facility] Work Phone: 04-23-2022 19:31-0400 Systolic blood pressure 116 mm[Hg] [facility] Work Phone: 04-23-2022 19:30-0400 Body temperature 97.4 [degF] [facility] Work Phone: 08-24-2021 10:51-0500 Body height 157.5 cm Parmjit Enrique MD Work Phone: [facility] 08-24-2021 10:51-0500 Body mass index (BMI) [Ratio] 26.08 kg/m2 Parmjit Enrique MD Work Phone: [facility] 08-24-2021 10:51-0500 Body temperature 97.11 [degF] Parmjit Enrique MD Work Phone: [facility] 08-24-2021 10:51-0500 Body weight 64.68 kg Parmjit Enrique MD Work Phone: [email or web address] [email or web address] [facility] 08-24-2021 10:51-0500 Diastolic blood pressure 62 mm[Hg] Parmjit Enrique MD Work Phone: [facility] [email or web address] [facility] 08-24-2021 10:51-0500 Heart rate 98 /min Parmjit Enrique MD Work Phone: [facility] [email or web address] [facility] 08-24-2021 10:51-0500 SaO2% (BldA) [Mass fraction] 98 % Parmjit Enrique MD Work Phone: [email or web address] [facility] 08-24-2021 10:51-0500 Systolic blood pressure 114 mm[Hg] Parmjit Enrique MD Work Phone: [facility] [email or web address] [facility] 02-26-2021 23:03-0400 Diastolic blood pressure 60 mm[Hg] Sagar Rodriguez MD Work Phone: [email or web address] [facility] 02-26-2021 23:03-0400 Heart rate 84 /min Sagar Rodriguez MD Work Phone: [email or web address] [facility] 02-26-2021 23:03-0400 Respiratory rate 18 /min Sagar Rodriguez MD Work Phone: [email or web address] 02-26-2021 23:03-0400 SaO2% (BldA) [Mass fraction] 98 % Sagar Rodriguez MD Work Phone: [email or web address] [facility] 02-26-2021 23:03-0400 Systolic blood pressure 110 mm[Hg] Sagar Rodriguez MD Work Phone: [email or web address] [facility] 02-26-2021 21:46-0400 Body height 157.5 cm Sagar Rodriguez MD Work Phone: [email or web address] [facility] 02-26-2021 21:46-0400 Body mass index (BMI) [Ratio] 25.4 kg/m2 Sagar Rodriguez MD Work Phone: [email or web address] [facility] 02-26-2021 21:46-0400 Body weight 63 kg Sagar Rodriguez MD Work Phone: [email or web address] [facility] 02-26-2021 21:45-0400 Body temperature 99.7 [degF] Sagar Rodriguez MD Work Phone: [facility] 02-08-2021 23:05-0400 Heart rate 104 /min Nehal Flower MD Work Phone: [facility] 02-08-2021 23:05-0400 SaO2% (BldA) [Mass fraction] 97 % Nehal Flower MD Work Phone: [facility] 02-08-2021 22:48-0400 Body temperature 98.6 [degF] Nehal Flower MD Work Phone: [facility] 02-08-2021 22:48-0400 Diastolic blood pressure 69 mm[Hg] Nehal Flower MD Work Phone: [facility] 02-08-2021 22:48-0400 Respiratory rate 16 /min Nehal Flower MD Work Phone: [facility] 02-08-2021 22:48-0400 Systolic blood pressure 110 mm[Hg] Nehal Flower MD Work Phone: [facility] 02-07-2021 10:06-0400 Body height 157.5 cm Mady Amor MD Work Phone: [facility] 02-07-2021 10:06-0400 Body mass index (BMI) [Ratio] 29.37 kg/m2 Mady Amor MD Work Phone: [email or web address] [facility] 02-07-2021 10:06-0400 Body temperature 98.2 [degF] Mady Amor MD Work Phone: [facility] 02-07-2021 10:06-0400 Body weight 72.85 kg Mady Amor MD Work Phone: [facility] 02-07-2021 10:06-0400 Diastolic blood pressure 72 mm[Hg] Mady Amor MD Work Phone: [email or web address] [facility] 02-07-2021 10:06-0400 Systolic blood pressure 112 mm[Hg] Mady Amor MD Work Phone: [facility] 02-06-2021 23:29-0400 Body temperature 96.6 [degF] Nehal Flower MD Work Phone: [facility] 02-06-2021 23:29-0400 Diastolic blood pressure 67 mm[Hg] Nehal Flower MD Work Phone: [employer] [facility] 02-06-2021 23:29-0400 Heart rate 83 /min Nehal Flower MD Work Phone: [facility] 02-06-2021 23:29-0400 Respiratory rate 16 /min Nehal Flower MD Work Phone: [facility] 02-06-2021 23:29-0400 SaO2% (BldA) [Mass fraction] 98 % Nehal Flower MD Work Phone: [email or web address] [facility] 02-06-2021 23:29-0400 Systolic blood pressure 117 mm[Hg] eNhal Flower MD Work Phone: [facility] 02-06-2021 22:15-0400 Body height 157.5 cm Nehal Flower MD Work Phone: [facility] 02-06-2021 22:15-0400 Body mass index (BMI) [Ratio] 29.15 kg/m2 Nehal Flower MD Work Phone: [employer] [facility] 02-06-2021 22:15-0400 Body weight 72.3 kg Nehal Flower MD Work Phone: [facility] 02-02-2021 13:21-0400 Body height 157.5 cm Rosita GLOVER Work Phone: [facility] [email or web address] [facility] 02-02-2021 13:21-0400 Body mass index (BMI) [Ratio] 29.26 kg/m2 Rosita Chacon [employer] Work Phone: [facility] 02-02-2021 13:21-0400 Body temperature 97.5 [degF] Rosita Chacon [employer]GER [employer] Work Phone: [facility] 02-02-2021 13:21-0400 Body weight 72.58 kg Rosita Chacon [employer]NAGER [employer] Work Phone: [facility] 02-02-2021 13:21-0400 Diastolic blood pressure 64 mm[Hg] Rosita Chacon [employer]GER [employer] Work Phone: [facility] 02-02-2021 13:21-0400 Systolic blood pressure 118 mm[Hg] Rosita Chacon [employer]GER [employer] Work Phone: [facility] 01-26-2021 08:21-0400 Body height 157.5 cm Mady Amor MD Work Phone: [facility] 01-26-2021 08:21-0400 Body mass index (BMI) [Ratio] 29.45 kg/m2 Mady Amor MD Work Phone: [facility] 01-26-2021 08:21-0400 Body temperature 97.5 [degF] Mady Amor MD Work Phone: [facility] 01-26-2021 08:21-0400 Body weight 73.03 kg Mady Amor MD Work Phone: [facility] 01-26-2021 08:21-0400 Diastolic blood pressure 66 mm[Hg] Mady Amor MD Work Phone: [facility] 01-26-2021 08:21-0400 Systolic blood pressure 110 mm[Hg] Mady Amor MD Work Phone: [facility] 01-12-2021 08:43-0400 BMI (Body Mass Index) 28.31 kg/m2 Mady Amor [facility] 01-12-2021 08:43-0400 Body Temperature 98.1 [degF] Mady [facility] 01-12-2021 08:43-0400 Body weight 70.22 kg [facility] 01-12-2021 08:43-0400 BP Diastolic 62 mm[Hg] [facility] 01-12-2021 08:43-0400 BP Systolic 120 mm[Hg] [facility] 01-12-2021 08:43-0400 Height 157.5 cm [facility] 12-26-2020 13:18-0400 BMI (Body Mass Index) 27.51 kg/m2 [facility] 12-26-2020 13:18-0400 Body Temperature 98.4 [degF] [facility] 12-26-2020 13:18-0400 Body weight 68.22 kg [facility] 12-26-2020 13:18-0400 BP Diastolic 62 mm[Hg] [facility] 12-26-2020 13:18-0400 BP Systolic 120 mm[Hg] [facility] 12-26-2020 13:18-0400 Height 157.5 cm [facility] 12-12-2020 08:56-0500 BMI (Body Mass Index) 27.44 kg/m2 [facility] 12-12-2020 08:56-0500 Body Temperature 97.39 [degF] [facility] 12-12-2020 08:56-0500 Body weight 68.04 kg [facility] 12-12-2020 08:56-0500 BP Diastolic 60 mm[Hg] [facility] 12-12-2020 08:56-0500 BP Systolic 100 mm[Hg] [facility] 12-12-2020 08:56-0500 Height 157.5 cm [facility] 11-28-2020 08:18-0500 BMI (Body Mass Index) 27.07 kg/m2 [facility] 11-28-2020 08:18-0500 Body Temperature 96.6 [degF] [facility] 11-28-2020 08:18-0500 Body weight 67.13 kg [facility] 11-28-2020 08:18-0500 BP Diastolic 64 mm[Hg] [facility] 11-28-2020 08:18-0500 BP Systolic 110 mm[Hg] [facility] 11-28-2020 08:18-0500 Height 157.5 cm [facility] 11-24-2020 23:45-0500 BP Diastolic 52 mm[Hg] [facility] 11-24-2020 23:45-0500 BP Systolic 105 mm[Hg] [facility] 11-24-2020 23:45-0500 Pulse (Heart Rate) 79 /min [facility] 11-24-2020 23:45-0500 Pulse Oximetry 96 % [facility] 11-24-2020 21:39-0500 Body Temperature 98.2 [degF] [facility] 11-24-2020 21:39-0500 Height 157.5 cm [facility] 11-24-2020 21:39-0500 Respiratory Rate 18 /min [facility] 10-24-2020 10:31-0500 BMI (Body Mass Index) 25.79 kg/m2 [facility] 10-24-2020 10:31-0500 Body Temperature 97.3 [degF] [facility] 10-24-2020 10:31-0500 Body weight 63.[address] [facility] 10-24-2020 10:31-0500 BP Diastolic 70 mm[Hg] [facility] 10-24-2020 10:31-0500 BP Systolic 104 mm[Hg] [facility] 10-24-2020 10:31-[address] [facility] 10-03-2020 09:54-0500 BMI (Body Mass Index) 25.97 kg/m2 [facility] 10-03-2020 09:54-0500 Body Temperature 96.4 [degF] [facility] [facility] 10-03-2020 09:54-0500 Body weight 64.41 kg [facility] 10-03-2020 09:54-0500 BP Diastolic 60 mm[Hg] [facility] 10-03-2020 09:54-0500 BP Systolic 104 mm[Hg] [facility] 10-03-2020 09:54-0500 Height 157.5 cm [facility] 09-05-2020 14:32-0500 BMI (Body Mass Index) 25.24 kg/m2 [facility] 09-05-2020 14:32-0500 Body Temperature 97.39 [degF] [facility] 09-05-2020 14:32-0500 Body weight 62.[address] [facility] 09-05-2020 14:32-0500 BP Diastolic 58 mm[Hg] [facility] 09-05-2020 14:32-0500 BP Systolic 102 mm[Hg] [facility] 09-05-2020 14:32-[address] [facility] 08-01-2020 07:39-0400 BMI (Body Mass Index) 25.24 kg/m2 [facility] 08-01-2020 07:39-0400 Body Temperature 97 [degF] [facility] 08-01-2020 07:39-0400 Body weight 62.[address] [facility] 08-01-2020 07:39-0400 BP Diastolic 56 mm[Hg] [facility] 08-01-2020 07:39-0400 BP Systolic 108 mm[Hg] [facility] 08-01-2020 07:39-[address] [facility] 06-30-2020 16:53-0400 Body surface area Derived from formula 1.62 m2 Raymon Madera [facility] 06-30-2020 08:03-0400 BMI (Body Mass Index) 24.87 kg/m2 [facility] 06-30-2020 08:03-0400 Body Temperature 97.81 [degF] [facility] 06-30-2020 08:03-0400 Body weight 61.69 kg [facility] 06-30-2020 08:03-0400 BP Diastolic 58 mm[Hg] [facility] 06-30-2020 08:03-0400 BP Systolic 110 mm[Hg] [facility] 06-30-2020 08:03-0400 Height 157.5 cm [facility] 06-24-2020 13:55-0400 BMI (Body Mass Index) 24.69 kg/m2 Avg Myrna Gal [id number] [facility] 06-24-2020 13:55-0400 Body Temperature 98.01 [degF] Avg Myrna Gal [id number] [facility] 06-24-2020 13:55-0400 Body weight 61.24 kg Avg Myrna Gal [id number] [facility] 06-24-2020 13:55-0400 BP Diastolic 60 mm[Hg] Avg Myrna Gal [id number] [facility] 06-24-2020 13:55-0400 BP Systolic 100 mm[Hg] Avg Myrna Gal [id number] [facility] 06-24-2020 13:55-0400 Height 157.5 cm Avg Myrna Gal [id number] [facility] 06-14-2020 11:01-0400 BMI (Body Mass Index) 25.06 kg/m2 Avg Myrna Gal [id number] [facility] 06-14-2020 11:01-0400 Body Temperature 99.19 [degF] Avg Myrna Gal [id number] [facility] 06-14-2020 11:01-0400 Body weight 62.14 kg Avg Myrna Gal [id number] [facility] 06-14-2020 11:01-0400 BP Diastolic 58 mm[Hg] Avg Myrna Gal [id number] [facility] 06-14-2020 11:01-0400 BP Systolic 100 mm[Hg] Avg Myrna Gal [id number] [facility] 06-14-2020 11:01-0400 Height 157.5 cm Avg Myrna Gal [id number] [facility] 05-12-2020 10:36-0400 BMI (Body Mass Index) 24.87 kg/m2 Ceci [facility] 05-12-2020 10:36-0400 Body Temperature 97.59 [degF] Ceci [facility] 05-12-2020 10:36-0400 Body weight 61.[address] [facility] 05-12-2020 10:36-0400 Height 157.5 cm [facility] 04-28-2020 09:56-0400 BP Diastolic 66 mm[Hg] [facility] 04-28-2020 09:56-0400 BP Systolic 108 mm[Hg] [facility] 04-28-2020 09:56-0400 Pulse (Heart Rate) 70 /min [facility] 04-28-2020 09:56-0400 Pulse Oximetry 99 % [facility] 04-28-2020 09:56-0400 Respiratory Rate 16 /min [facility] 04-28-2020 09:25-0400 Body Temperature 98.1 [degF] [facility] 04-28-2020 06:31-0400 BMI (Body Mass Index) 24.87 kg/m2 [facility] 04-28-2020 06:31-0400 Body weight 61.69 kg [facility] 04-28-2020 06:31-0400 Height 157.5 cm [facility] 04-07-2020 15:32-0400 BMI (Body Mass Index) 24.95 kg/m2 [facility] 04-07-2020 15:32-0400 Body Temperature 98.1 [degF] [facility] 04-07-2020 15:32-0400 Body weight 61.[address] [facility] 04-07-2020 15:32-0400 Height 157.5 cm [facility] 03-10-2020 10:09-0400 BMI (Body Mass Index) 25.42 kg/m2 Ceci Che [facility] 03-10-2020 10:09-0400 Body Temperature 97.11 [degF] [facility] 03-10-2020 10:09-0400 Body weight 63.05 kg [facility] 03-10-2020 10:09-0400 Height 157.[address] [facility] 02-04-2020 09:50-0400 BMI (Body Mass Index) 25.02 kg/m2 [facility] 02-04-2020 09:50-0400 Body Temperature 99.1 [degF] [facility] 02-04-2020 09:50-0400 Body weight 62.05 kg [facility] 02-04-2020 09:50-0400 BP Diastolic 62 mm[Hg] [facility] 02-04-2020 09:50-0400 BP Systolic 116 mm[Hg] [facility] 02-04-2020 09:50-0400 Height 157.5 cm [facility] 02-04-2020 09:50-0400 Pulse (Heart Rate) 69 /min [facility] 02-04-2020 09:50-0400 Pulse Oximetry 99 % [facility] 02-01-2020 10:50-0400 BMI (Body Mass Index) 24.69 kg/m2 [facility] 02-01-2020 10:50-0400 Body Temperature 98.4 [degF] [facility] 02-01-2020 10:50-0400 Body weight 61.24 kg [facility] 02-01-2020 10:50-0400 BP Diastolic 68 mm[Hg] [facility] 02-01-2020 10:50-0400 BP Systolic 106 mm[Hg] [facility] 02-01-2020 10:50-0400 Height 157.5 cm [facility] 08-21-2018 12:49-0500 BMI (Body Mass Index) 22.86 kg/m2 [facility] 08-21-2018 12:49-0500 Body Temperature 98.29 [degF] [facility] 08-21-2018 12:49-0500 BP Diastolic 78 mm[Hg] Mady Farrell [facility] 08-21-2018 12:49-0500 BP Systolic 116 mm[Hg] Mady Farrell [facility] 08-21-2018 12:49-0500 Height 157.5 cm Mady Farrell [facility] 08-21-2018 12:49-0500 Pulse (Heart Rate) 76 /min Mady Farrell [facility] 08-21-2018 12:49-0500 Pulse Oximetry 99 % Mady Farrell [facility] 08-21-2018 12:49-0500 Respiratory Rate 16 /min Mady Farrell [facility] 08-21-2018 12:49-0500 Weight 56.7 kg Mady Farrell [facility] Encounters Encounter Date Encounter Type Care Provider Facility Start: 06-23-2025 End: 06-23-2025 ambulatory Laureen Rasmussen Facility:[facility] Start: 06-23-2025 End: 06-23-[address] F[facility]arate [facility] Work Phone: Start: 06-16-2025 Patient encounter procedure Juliet Virk CNAmparo -Laboratory Work Phone: Start: 06-16-2025 ambulatory Juliet Virk Facility :[facility] Start: 05-27-2025 End: 05-27-[address] Laureen Rasmussen MD Work Phone: -Laboratory Specimen Start: 05-27-2025 End: 05-27-2025 Patient encounter procedure Juliet Virk CNM -Laboratory Specimen Work Phone: Start: 05-27-2025 End: 05-27-2025 Patient encounter procedure Juliet Virk CNM [facility] Work Phone: Start: 05-27-2025 End: 05-27-[address] Laureen Rasmussen MD Work Phone: [facility] Start: 05-27-2025 End: 05-27-2025 ambulatory Juliet Virk Facility:[facility] Start: 05-14-2025 Non-patient / Non-visit Beryl fuentes RN [facility] Work Phone: Start: 05-14-2025 ambulatory Beryltalat Kamara Facility :[facility] Start: 11-18-2024 End: 11-18-2024 ambulatory No Primary Care Physician Facility:[facility] Start: 11-18-2024 End: 11-18-2024 ambulatory Sagar CANTRELL Facility:[facility] Start: 04-22-2024 End: 04-22-2024 ambulatory MD [facility] Start: 01-15-2024 Non-patient / Non-visit No Belinda kirby [facility] Start: 01-13-2024 Non-patient / Non-visit No Belinda kirby [facility] Start: 01-13-2024 End: 01-15-2024 Evaluation and management of inpatient No Primary Care Physician [facility] Work Phone: Start: 01-13-2024 End: 01-13-2024 Patient encounter procedure No Primary Care Physician [facility] Work Phone: Start: 01-08-2024 End: 01-08-2024 ambulatory No Primary Care Physician [facility] Work Phone: Start: 01-08-2024 End: 01-08-2024 Patient encounter procedure No Primary Care Physician [facility] Work Phone: Start: 01-03-2024 Non-patient / Non-visit No Belinda kirby [facility] Start: 01-02-2024 End: 01-02-2024 ambulatory No Primary Care Physician [facility] Work Phone: Start: 01-02-2024 End: 01-02-2024 Patient encounter procedure No Primary Care Physician [facility], Outpatients Work Phone: Start: 12-23-2023 End: 12-23-2023 Patient encounter procedure No Primary Care Physician [facility] Work Phone: Start: 12-11-2023 End: 12-11-2023 ambulatory No Primary Care Physician [facility] Work Phone: Start: 12-11-2023 End: 12-11-2023 Patient encounter procedure No Primary Care Physician [facility]-Laboratory, Specimen Work Phone: Start: 12-11-2023 End: 12-11-2023 Patient encounter procedure No Primary Care Physician [facility] Work Phone: Start: 11-28-2023 End: 11-28-2023 Patient encounter procedure No Primary Care Physician [facility] Work Phone: Start: 11-13-2023 End: 11-13-2023 Patient encounter procedure No Primary Care Physician [facility] Work Phone: Start: 10-17-2023 End: 10-17-2023 ambulatory No Primary Care Physician [facility] Work Phone: Start: 10-17-2023 End: 10-17-2023 Patient encounter procedure No Primary Care Physician [facility] Work Phone: Start: 09-19-2023 End: 09-19-2023 Patient encounter procedure No Primary Care Physician [facility] Work Phone: Start: 09-11-2023 End: 09-11-2023 Patient encounter procedure No Primary Care Physician [facility] Ultrasound Work Phone: Start: 08-19-2023 End: 08-19-2023 Patient encounter procedure No Primary Care Physician [facility] Work Phone: Start: 07-25-2023 End: 07-25-2023 Patient encounter procedure No Primary Care Physician [facility] Work Phone: Start: 07-11-2023 End: 08-06-2023 ambulatory No Primary Care Physician [facility] Work Phone: Start: 07-11-2023 End: 08-06-2023 Discharged Recurring No Primary Care Physician [facility] Start: 06-24-2023 End: 06-24-[address] Fanta Zarate Work Phone: [facility] Work Phone: Start: 06-24-2023 End: 06-24-[address] Fanta Zarate Work Phone: [facility] Work Phone: Start: 08-01-2022 End: 08-01-[address] [facility] Work Phone: Start: 08-01-2022 End: 08-01-2022 Patient encounter procedure [facility]-Laboratory, Mike button bradder Off Start: 06-21-2022 End: 06-22-2022 Evaluation and management of inpatient [facility] Start: 06-18-2022 End: 06-18-2022 Patient encounter procedure [facility] Outpatients Start: 06-09-2022 End: 06-09-[address] [facility] Work Phone: Start: 06-09-2022 End: 06-09-2022 Patient encounter procedure [facility] Outpatients Start: 06-07-2022 End: 06-07-2022 Patient encounter procedure [facility] Outpatients Start: 06-04-2022 End: 06-04-[address] [facility] Work Phone: Start: 06-04-2022 End: 06-04-2022 [facility] Start: 05-19-2022 End: 06-06-[address] [facility] Work Phone: Start: 05-19-2022 End: 06-06-2022 Discharged Recurring [facility] Start: 04-23-2022 End: 04-23-2022 Patient encounter procedure [facility] Outpatients Start: 03-27-2022 End: 03-27-2022 Patient encounter procedure [facility]Labor[facility], Specimen Start: 11-17-2021 End: 11-17-2021 Office outpatient visit 15 minutes Parmjit Enrique MD Work Phone: [facility] Comment on above: Anxiety disorder, un specified type (Primary Dx); Dysthymia Start: 08-24-2021 End: 08-24-2021 Patient encounter status Parmjit Enrique MD Work Phone: [facility] Start: 08-24-2021 End: 08-24-2021 Periodic preventive med est patient 18-39 yrs Parmjit Enrique MD Work Phone: [facility] Comment on above: Routine general medi kayli examination at a health care facility (Primary Dx) Start: 02-26-2021 End: 02-26-2021 Emergency department patient visit Sagar Rodriguez MD Work Phone: [facility] Start: 02-08-2021 End: 02-09-2021 Subsequent hospital visit by physician Nehal Flower MD Work Phone: [facility] Start: 02-07-2021 End: 02-07-2021 Subsequent care visit Mady Amor MD Work Phone: [facility] [employer] ADMISSIONS REPRESENTATIVE Comment on above: Encounter for electi ve induction of labor (Primary Dx); Anxiety; Family history of clotting disorder; Uterine contractions during Start: 02-06-2021 End: 02-06-2021 Subsequent hospital visit by physician Nehal Flower MD Work Phone: [facility] Start: 02-02-2021 End: 02-02-2021 Subsequent hospital visit by physician Raymon Madera MD Work Phone: [facility] Start: 02-02-2021 End: 02-02-2021 Subsequent care visit Raymon Madera MD Work Phone: [facility] [employer] ADMISSIONS REPRESENTATIVE Comment on above: Encounter for superv ision of normal first in third trimester (Primary Dx); Uncertain lie of fetus, single or unspecified fetus; Anxiety; 37 weeks gestation of Start: 01-26-2021 End: 01-26-2021 Subsequent care visit Raymon Madera MD Work Phone: [facility] [employer] ADMISSIONS REPRESENTATIVE Comment on above: 36 weeks gestation o f (Primary Dx); Family history of clotting disorder Start: 01-12-2021 End: 01-12-2021 Follow-up encounter Rosita Chacon Work Phone: [facility] [employer] ADMISSIONS REPRESENTATIVE Comment on above: Family history of cl otting disorder Start: 12-26-2020 End: 12-26-2020 Follow-up encounter Raymon Madera Work Phone: [facility] [employer]IONS REPRESENTATIVE Comment on above: Family history of cl otting disorder Start: 12-12-2020 End: 12-12-2020 Follow-up encounter Rosita Chacon Work Phone: [facility] [employer] ADMISSIONS REPRESENTATIVE Comment on above: High-risk , young primigravida in third trimester (Primary Dx); Anxiety in , antepartum; 30 weeks gestation of Start: 12-07-2020 End: 12-07-2020 Subsequent hospital visit by physician Raymon Madera Work Phone: [facility] Start: 11-28-2020 End: 11-28-2020 Follow-up encounter Sandra Mchugh Work Phone: [facility] S[employer]OL ADMISSIONS REPRESENTATIVE Comment on above: High-risk , young primigravida in third trimester (Primary Dx); H/O migraine during ; Anxiety in , antepartum; headache in third trimester; 28 weeks gestation of Start: 11-24-2020 End: 11-25-2020 Emergency department patient visit Bartolo Zheng [facility] Start: 10-24-2020 End: 10-24-2020 Follow-up encounter Raymon Madera Work Phone: [facility] [employer] ADMISSIONS REPRESENTATIVE Comment on above: Encounter for superv ision of normal first in second trimester (Primary Dx); 23 weeks gestation of Start: 10-24-2020 End: 10-24-2020 Subsequent hospital visit by physician Raymon Madera Work Phone: [facility] Start: 10-03-2020 End: 10-03-2020 Follow-up encounter Sandra Asia Jeison Work Phone: [employer]OL ADMISSIONS REPRESENTATIVE Comment on above: Encounter for superv ision of normal first in second trimester (Primary Dx); 20 weeks gestation of Start: 09-05-2020 End: 09-05-2020 Follow-up encounter Raymon Madera Work Phone: [employer] ADMISSIONS REPRESENTATIVE Comment on above: Encounter for superv ision of normal first in second trimester (Primary Dx); Alopecia; 16 weeks gestation of Start: 09-05-2020 End: 09-05-2020 Subsequent hospital visit by physician Raymon Madera Work Phone: [facility] Start: 08-01-2020 End: 08-01-2020 Follow-up encounter Raymon Madera Work Phone: [employer] ADMISSIONS REPRESENTATIVE Comment on above: Encounter for superv ision of normal first in first trimester (Primary Dx); 11 weeks gestation of Start: 06-30-2020 End: 06-30-2020 Follow-up encounter Rosita Asia Chacon Work Phone: [employer] ADMISSIONS REPRESENTATIVE Comment on above: Encounter for superv ision of normal first in first trimester (Primary Dx); 6 weeks gestation of Start: 06-30-2020 End: 06-30-2020 Subsequent hospital visit by physician Raymon Madera Work Phone: [facility] Start: 06-24-2020 End: 06-24-2020 Office outpatient visit 5 minutes Raymon Madera Work Phone: [employer] ADMISSIONS REPRESENTATIVE Comment on above: 10 weeks gestation o f (Primary Dx); Family history of clotting disorder Start: 06-14-2020 End: 06-14-2020 Clinical Support Encounter Raymon Madera Work Phone: [employer] ADMISSIONS REPRESENTATIVE Comment on above: Missed period (Prima ry Dx); Clotting disorder Start: 05-12-2020 End: 05-12-2020 Postop follow up visit related to original px Ceci Che Work Phone: [facility] Comment on above: S/P excision of gang lion cyst (Primary Dx) Start: 04-28-2020 End: 04-28-2020 Subsequent hospital visit by physician Gerri Hicks Work Phone: [facility] Comment on above: Ganglion of right wr ist Start: 04-07-2020 End: 04-07-2020 Patient encounter procedure Ceci Che Work Phone: [facility] Comment on above: Ganglion cyst (Prima ry Dx) Start: 03-10-2020 End: 03-10-2020 Subsequent hospital visit by physician Ceci Che Work Phone: [facility] Comment on above: Arrived Start: 03-10-2020 End: 03-10-2020 Office outpatient new 45 minutes Ceci Che Work Phone: [facility] Comment on above: Ganglion cyst of wri st, right (Primary Dx) Start: 02-04-2020 End: 02-04-2020 Initial preventive medicine new pt age 18-39yrs Parmjit Enrique Work Phone: [facility] Comment on above: Routine general medi kayli examination at a health care facility (Primary Dx); Hx of cold sores Start: 02-01-2020 End: 02-01-2020 Initial preventive medicine new pt age 18-39yrs Sandra Mchugh Work Phone: [employer] ADMISSIONS REPRESENTATIVE Comment on above: Encounter for gyneco logical examination without abnormal finding (Primary Dx); Screening for cervical cancer; Screening for STDs (sexually transmitted diseases); Encounter for surveillance of contraceptive pills Start: 12-17-2018 Patient encounter procedure Facility:[id number] Start: 12-16-2018 End: 12-19-2018 Evaluation and management of inpatient Nodr No Doctor Assigned Facility:[facility] Start: 12-16-2018 End: 12-17-2018 Patient encounter procedure Love Barnhart Facility:[facility] Start: 12-16-2018 Patient encounter procedure Facility:[id number] Start: 12-15-2018 End: 12-15-2018 Emergency department patient visit DANIELA WALTON [facility] Start: 08-21-2018 Encounter for genera l adult medical examination without abnormal findings [facility] Start: 08-21-2018 End: 08-21-2018 Patient encounter procedure MADY FARRELL [facility] Start: 08-21-2018 End: 08-21-2018 Initial preventive medicine new pt age 18-39yrs Mady Farrell Work Phone: [facility] Comment on above: Oral herpes simplex infection; Impetigo; Well adult exam; Nasal septal deviation Start: 08-12-2018 Patient encounter procedure [facility] Encounter for genera l adult medical examination without abnormal findings [facility] Procedures Date Procedure Procedure Detail Performing Clinician Start: 06-16-2025 [address] C antibody measurement Dr. Laureen Rasmussen MD Work Phone: Comment on above: Reactive: Presumptiv e evidence of antibodies to HCV. Follow CDC recommendations for supplemental testing.Non-Reactive: Antibodies to HCV were not detected; does not exclude the possibility of exposure to HCVReactive Results are presumptive evidence of antibodies to HCV. Follow CDC recommendations for supplemental testing.Order confirmation testing: HCV Quant by PCR testing - HCVPCR #[id number] Non Reactive: < 0.8 Equivocal: >/= 0.8 to < 1.0 Reactive: >/= 1.0The CDC requires that a reactive/equivocal HCV antibody result be sent out for confirmation. HCV Quant by PCR testing. Start: 06-16-[address] Laureen Rasmussen MD Work Phone: Comment on above: Antibody Result: Int erpretationNon-Reactive: Non- ImmuneReactive: ImmuneThe following results were obtained with the [employer] Rubella IgG assay. Results from assays of other manufacturers cannot be used interchangeably. Start: 06-16-2025 Serologic test for syphilis Dr. Laureen Rasmussen MD Work Phone: Start: 05-27-[address] Annamarie Rasmussen MD Work Phone: Start: 01-08-2024 Group B Streptococcus Culture No Primary Care Physician Start: 01-08-2024 Ultrasound scan for growth No Primary Care Physician Start: 01-02-2024 Urine culture No Primar y Care Physician Start: 12-11-2023 Genital Culture No Prim vicente Care Physician Start: 12-11-2023 Investigation of tra nsfusion reaction No Primary Care Physician Start: 12-11-2023 Urine culture No Primar y Care Physician Start: 09-11-2023 anatomy study No Primary Care Physician Start: 07-11-2023 Viral antigen assay No Primary Care Physician Start: 06-24-[address] Anju Zarate Work Phone: Start: 02-26-2021 Culture bacterial qu anttative colony count urine Sagar Rodriguez MD Work Phone: Start: 02-26-2021 Urinalysis, reagent strip without microscopy Sagar Rodriguez MD Work Phone: Start: 02-08-2021 Eval c/v amniotic fl uid protein qual ea specimen Nehal Flower MD Work Phone: Start: 02-08-2021 End: 02-08-2021 Smr prim src wet mount nfct agt Nehal Flower MD Work Phone: Start: 02-08-2021 RAPID TOX SCREEN WIT H RELEX TO [facility] Nehal Flower MD Work Phone: Start: 02-08-2021 Urinalysis, reagent strip without microscopy Nehal Flower MD Work Phone: Start: 02-07-2021 nonstress test Sheeba Amor MD Work Phone: Start: 02-06-2021 RAPID TOX SCREEN WIT H RELEX TO DRUG Nehal Flower MD Work Phone: Start: 02-06-2021 Urinalysis microscopic only Nehal Flower MD Work Phone: Start: 02-06-2021 Urinalysis, reagent strip without microscopy Nehal Flower MD Work Phone: Start: 01-26-2021 Iadna respiratry pro be & rev trnscr 3-5 targets Mady Amor MD Work Phone: Start: 11-28-2020 Complete blood count with white cell differential, automated Sandra Mchugh Work Phone: Start: 11-28-2020 GLUCOSE POST LOADING Am miguelina Mchugh Work Phone: Start: 11-28-2020 Syphilis test non-tr eponemal antibody qual Sandra Mchugh Work Phone: Start: 11-24-2020 Complete blood count with white cell differential, automated Bartolo Zheng Work Phone: Start: 11-24-2020 Comprehensive metabolic panel Bartolo Zheng Work Phone: Start: 11-24-2020 CT of entire head Kuaidi Dachera dorie Zheng Work Phone: Start: 11-24-2020 Culture bacterial qu anttative colony count urine Bartolo Zheng Work Phone: Start: 11-24-2020 Urinalysis microscopic only Bartoloelo Zheng Work Phone: Start: 11-24-2020 Urinalysis, reagent strip without microscopy Bartolo Zheng Work Phone: Start: 11-24-2020 Gluc bld gluc mntr d ev cleared fda spec home use Bartolo Zheng Work Phone: Start: 10-24-2020 Narrative [Interpretation] Study observation general US Ami L Jeison Work Phone: Start: 06-30-2020 Narrative [Interpretation] Study observation general US Mady Amor Work Phone: Start: 06-24-2020 Culture bacterial qu anttative colony count urine Mady Amor Work Phone: Start: 06-24-2020 Urine drug screening Sheeba faith Amor Work Phone: Start: 06-24-2020 Blood typing [...] Amor Work Phone: Start: 06-24-2020 Syphilis test non-tr eponemal antibody qual Mady Amor Work Phone: Start: 06-14-2020 Choriogonadotropin ( test) [Presence] in Urine Mady Amor Work Phone: Start: 04-28-2020 ORDERS (SCAN) Historica l Provider Start: 04-28-2020 PRE OP CHECKLIST Histor ical Provider Start: 04-28-2020 End: 04-28-2020 Exc fabby/vasc [...] Detail Author Start: 12-12-2030 Tetanus vaccination TETANUS [facility] Start: 06-16-2025 Procedure [facility] Start: 01-15-2024 Patient discharge [facility] Start: 01-15-2024 [facility] Start: 01-14-2024 Documentation procedure [facility] Start: 01-14-2024 Administration of medication [facility] Start: 01-14-2024 Application of ice collar, cap or bag [facility] Start: 01-14-2024 Catheterization of vein [facility] Start: 01-14-2024 Introduction of urin vicente catheter [facility] Start: 01-14-2024 Measuring intake and output [facility] Start: 01-14-2024 Notification of physician [facility] Start: 01-14-2024 Procedure discontinued [facility] Start: 01-14-2024 Provision of activit y privileges [facility] Start: 01-14-2024 Vital signs measurements [facility] Start: 01-14-2024 End: 01-14-[address] [facility] Start: 01-14-2024 Consultation [facility] Start: 01-13-2024 Admission procedure [facility] Start: 01-13-2024 Verification routine [facility] Start: 01-02-2024 Nonstress test [facility] Start: 01-02-2024 Obstetric monitoring [facility] Start: 01-02-2024 Vital signs measurements [facility] Start: 01-02-2024 [facility] Start: 01-02-2024 Patient discharge [facility] Start: 01-02-2024 [facility] Start: 06-24-2023 Liquid based cervica l cytology screening [facility] Start: 06-22-2022 Patient discharge [facility] Work Phone: Start: 06-22-2022 Consultation [facility] Work Phone: Start: 06-21-2022 Administration of medication [facility] Work Phone: Start: 06-21-2022 Application of ice collar, cap or bag [facility] Work Phone: Start: 06-21-2022 Catheterization of vein [facility] Work Phone: Start: 06-21-2022 Introduction of urin vicente catheter [facility] Work Phone: Start: 06-21-2022 Measuring intake and output [facility] Work Phone: Start: 06-21-2022 Notification of physician [facility] Work Phone: Start: 06-21-2022 Procedure discontinued [facility] Work Phone: Start: 06-21-2022 Provision of activit y privileges [facility] Work Phone: Start: 06-21-2022 Vital signs measurements [facility] Work Phone: Start: 06-21-2022 [facility] Work Phone: Start: 06-21-2022 Admission procedure [facility] Work Phone: Start: 06-09-2022 Patient discharge [facility] Work Phone: Start: 06-07-2022 Nonstress test [facility] Work Phone: Start: 06-07-2022 Obstetric monitoring [facility] Work Phone: Start: 06-07-2022 Vital signs measurements [facility] Work Phone: Start: 06-07-2022 [facility] Work Phone: Start: 06-07-2022 Iv infusion hydratio n each additional hour HYDRATE IV INFUSION ADD-ON [facility] Work Phone: Start: 06-07-2022 Iv infusion hydratio n initial 31 min-1 hour HYDRATION IV INFUSION INIT [facility] Work Phone: Start: 06-07-2022 Patient discharge [facility] Work Phone: Start: 05-21-2022 Tetanus vaccination TETANUS EVERY 10 YR [facility] Start: 04-23-2022 Nonstress test [facility] Work Phone: Start: 04-23-2022 End: 04-23-[address] [facility] Work Phone: Start: 04-23-2022 Obstetric monitoring [facility] Work Phone: Start: 04-23-2022 Vital signs measurements [facility] Work Phone: Start: 04-23-2022 Iv infusion hydratio n each additional hour HYDRATE IV INFUSION ADD-ON [facility] Work Phone: Start: 04-23-2022 Iv infusion hydratio n initial 31 min-1 hour HYDRATION IV INFUSION INIT [facility] Work Phone: Start: 04-23-2022 Catheterization of vein [facility] Work Phone: Start: 04-23-2022 Patient discharge [facility] Work Phone: Start: 02-08-2022 GONORRHEA SCREEN GONORRHEA SCREEN [facility] Start: 02-08-2022 Screening for Chlamy galo trachomatis CHLAMYDIA SCREEN [facility] Start: 06-30-2021 GONORRHEA SCREEN GONORRHEA SCREEN [facility] Start: 06-30-2021 Screening for Chlamy galo trachomatis CHLAMYDIA SCREEN [facility] Start: 06-07-2021 Influenza vaccination INFLUENZ A VACCINE (Season Ended) [facility] Start: 02-09-2021 End: 02-09-2021 Follow-up encounter 02/09/2021 Follow Up Visit SCHOOL ADMISSIONS REPRESENTATIVE Raymon Madera MD [address] [place] [address] [phone] [facility] SCHOOL ADMISSIONS REPRESENTATIVE Start: 02-02-2021 End: 02-02-2022 OB LIMITED/NERISSA [facility] Comment on above: Expected: 02/02/2021 , Expires: 02/02/2022 1 Occurrences starti ng 02/02/2021 until 02/02/2021 Start: 02-02-2021 End: 02-02-2021 Follow-up encounter 02/02/2021 Follow Up Visit SCHOOL ADMISSIONS REPRESENTATIVE Rosita Chacon, MANAGER [employer] [id number] [place] [address] [phone] [facility] SCHOOL ADMISSIONS REPRESENTATIVE Start: 01-31-2021 Screening for malign ant neoplasm of cervix CERVICAL CANCER SCREENING DISCUSSION [facility] Start: 01-26-2021 End: 01-26-2021 Follow Up Visit 01/26/2021 Follow Up Visit SCHOOL ADMISSIONS REPRESENTATIVE Mady Amor MD [address] [place] [address] [facility] SCHOOL ADMISSIONS REPRESENTATIVE Start: 01-12-2021 End: 01-12-2021 Follow Up Visit 01/12/2021 Follow Up Visit SCHOOL ADMISSIONS REPRESENTATIVE Rosita Chacon, MANAGER [employer] [id number] [place] [address] [facility] SCHOOL ADMISSIONS REPRESENTATIVE Start: 12-26-2020 End: 12-26-2020 Follow Up Visit 12/26/2020 Follow Up Visit SCHOOL ADMISSIONS REPRESENTATIVE Mady Amor MD [address] [place] [address] [facility] SCHOOL ADMISSIONS REPRESENTATIVE Start: 12-12-2020 End: 12-12-2020 Follow Up Visit 12/12/2020 Follow Up Visit SCHOOL ADMISSIONS REPRESENTATIVE Rosita Chacon, MANAGER [employer] [id number] [place] [address] [facility] SCHOOL ADMISSIONS REPRESENTATIVE Start: 12-07-2020 End: 12-07-2020 Appointment 12/07/2020 Appointment Ultrasound Raymon Madera MD [address] [place] [address], [place] [address] [facility] OB ULTRASOUND Start: 11-28-2020 End: 11-28-2020 Follow Up Visit 11/28/2020 Follow Up Visit SCHOOL ADMISSIONS REPRESENTATIVE Sandra Mchugh, MANAGER [employer] [address] [place] [address], [place] [address] [facility] SCHOOL ADMISSIONS REPRESENTATIVE Start: 10-24-2020 End: 10-24-2020 Appointment [facility] Start: 10-03-2020 End: 10-03-2020 Appointment [facility] Start: 09-05-2020 End: 09-05-2020 Appointment [facility] OB ULTRASOUND Start: 09-05-2020 End: 09-05-2021 TSH W/FT4 REFLEX TSH W/FT4 REFLEX Lab Routine Alopecia Expected: 09/05/2020, Expires: 09/05/2021 [facility] Comment on above: Expected: 09/05/2020 , Expires: 09/05/2021 Start: 08-01-2020 End: 08-01-2020 Follow Up Visit 08/01/2020 Follow Up Visit SCHOOL ADMISSIONS REPRESENTATIVE Raymon Madera MD [address] [place] [address] [facility] SCHOOL ADMISSIONS REPRESENTATIVE Start: 06-30-2020 End: 06-30-2021 CHLAMYDIA/GONOCOCCUS, JIMMY CHLAMYDIA/GONOCOCCUS, JIMMY Microbiology Routine Encounter for supervision of normal first in first trimester 6 weeks gestation of Expected: 06/30/2020, Expires: 06/30/2021 [facility] Comment on above: Expected: 06/30/2020 , Expires: 06/30/2021 Start: 06-30-2020 End: 06-30-2020 Appointment [facility] OB ULTRASOUND Start: 06-24-2020 End: 06-24-2021 Narrative [Interpretation] Study observation general US US OB DATING ABDOMINAL < 14WEEKS Imaging Routine 10 weeks gestation of Expected: 06/24/2020, Expires: 06/24/2021 [facility] Comment on above: Expected: 06/24/2020 , Expires: 06/24/2021 Start: 06-24-2020 End: 06-24-2020 Clinical Support Encounter 06/24/2020 Clinical Support Encounter SCHOOL ADMISSIONS REPRESENTATIVE Raymon Madera MD [address] [place] [phone] [facility] SCHOOL ADMISSIONS REPRESENTATIVE Start: 06-07-2020 Influenza vaccination [facility] Start: 05-19-2020 End: 05-19-2020 Office Visit 05/19/2020 Office Visit Orthopaedics Ceci Che, PARichiC [address] [place], [place] [phone] [facility] Orth[facility] & [facility] Start: 05-12-2020 End: 05-12-2020 Office Visit 05/12/2020 Office Visit Orthopaedics Ceci Che PA-C [address] [facility] [place] [address] [phone] [facility] Orthoped[facility] Sports Medicine Start: 04-28-2020 End: 04-28-2020 Procedure Pass [facility] Periop Comment on above: Ganglion of right wr ist EXCISION SOFT TISSUE FINGER HAND Start: 04-25-2020 End: 04-25-2020 Lab Encounter 04/25/2020 Lab Encounter Clinical Pathology/Laboratory Medicine Gerri Hicks MD [address] [place] [address] [phone] [facility] Start: 04-07-2020 End: 04-07-2020 Office Visit 04/07/2020 Office Visit Orthopaedics Ceci Che PA-C [address] [place] [address] [phone] [facility] Orthopedics [facility] Start: 04-04-2020 End: 04-04-2020 Pre-Operative Nurse Assessment 04/04/2020 Pre-Operative Nurse Assessment [facility] Pre Admission Testing Start: 03-10-2020 End: 04-06-2020 Radiography of hand [facility] Comment on above: Expected: 03/10/2020 , Expires: 04/06/2020 1 Occurrences starti ng 03/10/2020 until 03/10/2020 Start: 02-04-2020 End: 02-04-2020 Office Visit 02/04/2020 Office Visit Family Medicine Parmjit Enrique MD [address] [place] [address], [place] [address] [phone] [facility] FAMILY MEDICINE Start: 02-01-2020 End: 01-31-2021 MYRNA CYTOLOGY-MARKETING AND PUBLIC RELATIONS MANAGER, LIQUID BASED MYRNA CYTOLOGY-MARKETING AND PUBLIC RELATIONS MANAGER, LIQUID BASED Cytology Routine Screening for cervical cancer Screening for STDs (sexually transmitted diseases) Expected: 02/01/2020, Expires: 01/31/2021 [facility] Comment on above: Expected: 02/01/2020 , Expires: 01/31/2021 Start: 2018 Screening for malign ant neoplasm of cervix CERVICAL CANCER SCREENING DISCUSSION [facility] Start: 2016 Third diphtheria, te tanus and acellular pertussis (DTaP) vaccination TDAP (ADULT) [facility] Start: 2015 Tetanus vaccination [facility] Start: 2013 COVID-19 VACCINE (1) COVID-19 VACCIN E (1) [facility] Start: 2013 Screening for Chlamy galo trachomatis CHLAMYDIA SCREEN [facility] Start: 2012 HIV screening HIV SCREENING DISCUSSION [facility] Start: 2012 Vaccination for josh n papillomavirus HPV VACCINES (1 - Female 3-dose series) [facility] Start: 2010 HIV screening HIV SCREENING DISCUSSION [facility] Start: 2009 COVID-19 VACCINE (1) COVID-19 VACCIN E (1) [facility] Start: 2008 Vaccination for josh n papillomavirus [facility] Start: 2002 COVID-19 VACCINE (1) COVID-19 VACCIN E (1) [facility] Start: 1997 GONORRHEA SCREEN GONORRHEA SCREEN [facility] Start: 1997 Screening for malign ant neoplasm of cervix [facility] Bacteria identified Cx Nom (U) [facility] BETA STREP, VAGINAL SCREEN BETA STREP, VAGINAL SCREEN Microbiology Routine 36 weeks gestation of 01/26/2021 3:12 PM EDT [facility] CBC W Auto Different ial panel - Blood [facility] Chlamydia deoxyribonucleic acid detection [facility] CHLAMYDIA/GONOCOCCUS, JIMMY CHLAMY GALO/GONOCOCCUS, JIMMY Microbiology STAT 02/08/2021 10:30 PM EDT [facility] Complete blood count with white cell differential, automated CBC, EDIF, PLATELET Lab Routine 28 weeks gestation of 11/28/2020 4:02 PM EST [facility] anatomy study [facility] Group B Streptococcu s Culture Group B Streptococcus Culture [facility] Work Phone: HEPATITIS B SURFACE ANTIGEN HEPATITIS B SURFACE ANTIGEN Lab Routine 10 weeks gestation of 06/24/2020 5:36 PM EDT [facility] Hepatitis C antibody measurement [facility] PAP IG, CT-NG, RFX H PV ASCU PAP IG, CT-NG, RFX HPV ASCU LAB SEND OUTS Routine 02/01/2020 10:54 AM EDT [facility] Patient Education Kick Counts ED False Labor OB Triage: Return to Hospital or Notify Physician if you Experience: [facility] Work Phone: Patient referral [facility] Work Phone: Procedure [facility] Radiography of hand XR HAND RIGH T 3+ VIEWS Imaging Routine Ganglion cyst of wrist, right 03/10/2020 10:26 AM EDT [facility] Reagin Ab RPR Ql (S) [employer] Rubella IgG measurement [facility] RUBELLA IMMUNE STATU S IGG ANTIBODY RUBELLA IMMUNE STATUS IGG ANTIBODY Lab Routine 10 weeks gestation of 06/24/2020 5:35 PM EDT [facility] Serologic test for syphilis [facility] T4 free measurement [facility] Thyroid stimulating hormone measurement [facility] Thyroperoxidase Ab [Units/volume] in Serum or Plasma [facility] Transvaginal obstetr ic ultrasonography [facility] Ultrasonography in f irst trimester [facility] Ultrasound scan for growth [facility] US OB LIMITED/NERISSA US OB LIMITED/ NERISSA Imaging Routine Uncertain lie of fetus, single or unspecified fetus 02/02/2021 2:44 PM ED [facility] VARICELLA IGG AB (IM M STATUS) VARICELLA IGG AB (IMM STATUS) Lab Routine 10 weeks gestation of [facility]/24[facility]2020 [facility] Immunization Date Immunization Notes [facility] influenza, seasonal, injectable, preservative free Dr. Laureen Rasmussen MD Work Phone: [facility] 11-28-2023 tetanus toxoid, redu amish diphtheria toxoid, and acellular pertussis vaccine, adsorbed No Primary Care Physician [facility] 09-23-2023 influenza, injectabl e, quadrivalent, preservative free No Primary Care Physician [facility] 09-24-2022 influenza, injectabl e, quadrivalent, preservative free Dr. Fanta Zarate Work Phone: [facility] 09-07-2021 Covid ([employer]) [facility] 07-11-2021 influenza, injectabl e, quadrivalent, preservative free Dr. Fanta Zarate Work Phone: [facility] 07-11-2021 influenza, seasonal, injectable [facility] Work Phone: 07-11-2021 influenza, seasonal, injectable, preservative free Dr. Laureen Rasmussen MD Work Phone: [facility] 07-11-2021 Seasonal, quadrivale nt, recombinant, injectable influenza vaccine, preservative free Dr. Laureen Rasmussen MD Work Phone: [facility] 12-12-2020 diphtheria, tetanus toxoids and acellular pertussis vaccine, unspecified formulation [facility] 12-12-2020 tetanus toxoid, redu amish diphtheria toxoid, and acellular pertussis vaccine, adsorbed; Translations: [TDAP VACCINE >10YO 0.5ML IM] [facility] 12-25-[address] [facility] 07-09-2017 meningococcal ACWY vaccine, unspecified formulation [facility] 07-09-2017 meningococcal polysaccharide (groups A, C, Y and W-135) diphtheria toxoid conjugate vaccine (MCV4P) Dr. Laureen Rasmussen MD Work Phone: [facility] 07-09-[address] [facility] 04-14-2013 hepatitis A vaccine, pediatric/adolescent dosage, [address] Laureen Rasmussen MD Work Phone: [facility] 04-08-2013 hepatitis A vaccine, pediatric/adolescent dosage, 2 dose schedule [facility] 05-21-2012 hepatitis A vaccine, pediatric/adolescent dosage, 2 dose schedule [facility] 05-21-2012 meningococcal ACWY vaccine, unspecified formulation [facility] 05-21-2012 meningococcal polysaccharide (groups A, C, Y and W-135) diphtheria toxoid conjugate vaccine (MCV4P) Dr. Laureen Rasmussen MD Work Phone: [facility] 05-21-2012 tetanus toxoid, redu amish diphtheria toxoid, and acellular pertussis vaccine, adsorbed [facility] 09-16-2009 novel [id number], preservative-free, injectable Dr. Laureen Rasmussen MD Work Phone: [facility] 06-02-2003 diphtheria, tetanus toxoids and acellular pertussis vaccine [facility] 06-02-2003 poliovirus vaccine, inactivated [facility] 06-04-2001 diphtheria, tetanus toxoids and acellular pertussis vaccine [facility] 05-08-2000 haemophilus influenz ae type b vaccine, conjugate unspecified formulation [facility] 05-08-2000 haemophilus influenz ae type b vaccine, PRP-T conjugate Dr. Laureen Rasmussen MD Work Phone: [facility] 05-08-2000 measles, mumps and rubella virus vaccine [facility] 01-15-2000 diphtheria, tetanus toxoids and acellular pertussis vaccine [facility] 01-15-2000 haemophilus influenz ae type b vaccine, conjugate unspecified formulation [facility] 01-15-2000 haemophilus influenz ae type b vaccine, PRP-T conjugate Dr. Laureen Rasmussen MD Work Phone: [facility] 01-15-2000 hepatitis B vaccine, pediatric or pediatric/adolescent dosage [facility] 01-15-2000 poliovirus vaccine, inactivated [facility] 09-20-1999 diphtheria, tetanus toxoids and acellular pertussis vaccine [facility] 09-20-1999 measles, mumps and rubella virus vaccine [facility] 09-20-1999 poliovirus vaccine, inactivated [facility] 09-20-1999 trivalent poliovirus vaccine, live, oral Dr. Laureen Rasmussen MD Work Phone: [facility] 06-01-1998 diphtheria, tetanus toxoids and acellular pertussis vaccine [facility] 06-01-1998 haemophilus influenz ae type b conjugate and Hepatitis B vaccine Dr. Laureen Rasmussen MD Work Phone: [facility] 06-01-1998 haemophilus influenz ae type b vaccine, conjugate unspecified formulation [facility] 06-01-1998 hepatitis B vaccine, pediatric or pediatric/adolescent dosage [facility] 06-01-1998 poliovirus vaccine, inactivated [facility] 06-01-1998 trivalent poliovirus vaccine, live, oral Dr. Laureen Rasmussen MD Work Phone: [facility] 1997 hepatitis B vaccine, pediatric or pediatric/adolescent dosage [facility] Payers Date Payer Category Payer Unknown [id number] 2020 Unknown [facility] [place] [facility] xxxxxxxxxxxx 2020-Present [id number] 2020 Unknown [id number] 2018 Self-pay 2018 Unknown 2017 Unknown [id number] 1997 Unknown [id number] 1997 Unknown [id number] 1997 Unknown [id number] [id number] 1997 Unknown [id number] [id number] 1997 Unknown [id number] [id number] 1997 Unknown [id number] [id number] Unknown COMMERCIAL COMME RCIAL MISCELLANEOUS Effective for all dates xxxxxx [id number] Unknown [id number] Unknown [id number] Unknown [id number] [id number] Unknown [id number] [id number] Unknown [id number] [id number] Unknown [id number] [id number] Unknown [id number] [id number] Unknown [id number] Unknown [id number] Social History Date Type Detail Facility Start: 11-09-2018 End: 05-14-2025 Tobacco smoking status [facility] Never smoker [facility] Start: 08-12-2018 Alcohol Comment wine-occassions [facility] Start: 1995 Sex Assigned At Not on file [facility] Start: 02-01-2020 End: 02-04-2020 Alcohol intake Current drinker of alcohol (finding) [facility] [employer] [facility] [facility] Start: 02-04-2020 End: 10-24-2020 History SDOH Alcohol Std Drinks 1 [facility] Start: 02-04-2020 History SDOH Alcohol Binge 5 [facility] Start: 02-01-2020 Alcohol Comment occ [facility] Exposure to SARS-CoV -2 (event) Not sure [facility] [facility] Start: 02-01-2020 End: 03-10-2020 Tobacco use and exposure Never used [facility] Start: 04-04-2020 End: 10-24-2020 History SDOH Alcohol Frequency 4 [facility] Start: 04-04-2020 End: 10-24-2020 History SDOH Alcohol Binge 99 [facility] Exposure to SARS-CoV -2 (event) Yes [facility] Start: 04-28-2020 End: 10-24-2020 History SDOH IPV Fear 2 [facility] Start: 06-14-2020 End: 08-24-2021 Alcohol intake Ex-drinker (finding) [facility] Start: 06-14-2020 End: 10-24-2020 History SDOH Social Connections Living 3 [facility] Start: 04-29-2020 [facility] Start: 1995 Sex Assigned At Female [facility] Start: 06-21-2022 End: 01-13-2024 Tobacco smoking status [facility] Unknown if ever smoked [facility] Sex [facility] Goals Date Patient Goal Desired Activity /State Functional Status Date Assessment Result Facility 06-22-2022 Functional status Activity Ability Indepe ndent [facility] Work Phone: Mental Status Date Assessment Result Facility 06-22-2022 Cognitive function Appropriate;Cooperativ e [facility] Work Phone: Clinical Notes 01-26-2021 to 06-23-2025 Note Date & Type Note Facility 06-23-2025 Progress note [facility] 06-23-2025 Progress note Note Date/Time June 23, 2025 2:46pm [facility] [address], [address] [place] [address] OFFICE VISIT Date of Service: 06/23/25 MR#: [id number] Acct: [id number] Name: NAYELI HERNANDEZ Rep #: [id number] : 1995 Provider: Dr. Cisco Zarate MD Age/Sex: 29/F [place] [facility] [place]: Signed Intake Vital Signs 04/27/25 14:36 05/27/25 14:55 06/23/25 14:14 Height 5 ft 2 in 5 ft 2 in 5 ft 2 in Weight: 163 lb 8 oz BMI 29.9 BP 113/75 Intake Visit Reasons: 12wk ob Technical Photographer Required: No Is patient in pain?: No Allergies No Known Allergies Allergy (Verified 06/23/25 14:14) Medications ?Medication ?Instructions ?Recorded ?Confirmed ?Type qlzywsmp-lrk-Uh-FA 1 mg 1 tab PO DAILY pregna ncy 04/23/22 06/23/25 History tablet valacyclovir 1 gram tablet 2,000 mg (2 x 1 gram) PO BI D PRN 03/24/25 06/23/25 Rx (Valtrex) cold sore #4 tabs Last Menstrual Period: 03/20/25 Zika: Zika virus screening: Negative : No PFSH PFSH Medical History History of shoulder dystocia Anxiety depression Seasonal allergies Family history of autistic disorder Surgical History [place] teeth extracted History of surgery Family History Grandmother Breast cancer, Onset Age: 65 maternal Aunt Breast cancer, Onset Age: 60 Maternal Sister Thyroid disorder Mother Thyroid disorder Hypertension Sister Thyroid disorder Father Hypertension Social History adopted: No household members: spouse and children number of children: 3 current occupational status: employed 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 Date Name GA/Weeks Outcome Route Bth Weight Infant Gen Labor Lgth Anesthesia Del Locatn Provider FOB 02/12/21 Suyapa 39 live - full term 7#.04oz Female epidural [facility] Dr.Bailey Burchatt 06/21/22 [place] 39 live - full term 7#11oz Female ep idural [facility] [employer] Dr. Daniela Burchatt 01/14/24 Merelyn 37 live - full term 6lbs 11oz Female epidural [facility] J[facility] [place] Delivery Date: 02/12/21 Last Updated by: Huma Dietrich IOL- failure to progress, head stuck on hip Delivery Date: 06/21/22 Last Updated by: Huma Dietrich IOL-early labor 2 wks, shoulder dystocia Delivery Date: 01/14/24 Last Updated by: Beryl Kamara RN IOL 37 oligo HPI 12wk ob Details: NAYELI HERNANDEZ is a 29 year old who presents for routine OB visit. OB Visit PRANAY Calculator Estimated Delivery Date Method Current WG Current Estimate 01/03/26 Ultrasound #1 12w 2d Other Estimates 12/25/25 LMP (Certain) 13w 4d Expected Delivery Route/Plan Labor Preferences- CB/BF classes: [...] cons with dates PRANAY changed. declines NIPT 06/23/25 -?-?-?-?-?-?-?-?-?-?-?-?- 12w 2d 163 lb 8 oz (-8 oz) 113/75 -?-?-?-?-?-?-?-?-?-?-?-?- 170 -?-?-?-?-?-?-?-?-?-?-?-?- SM- no vb crampi ng ACOG First Trimester First Trimester: Desire for , Alcohol, Tobacco Cessation, Illicit/Recreational Drug/Substance Use, Intimate Partner Violence, Barriers to care, Unstable Housing, Communication Barriers, Environmental/Work Hazards, Anticipated Course of Care, Toxoplasmosis Precations, Use of Any medications, Sexual activity, Exercise, Dental Care, Sauna/Hot tub use, Seat Belt use, Childbirth classes/Hospital facilities, Travel, Indications for Ultrasound and Screening for Aneuploidy; Discussed Second Trimester Second Trimester: Signs and Symptoms of Labor, Selecting a care provider, Reproductive Life Planning & Contreception, Care Planning, Depression/Anxiety and Intimate Partner Violence; Discussed Tobacco Cessation Third Trimester Third Trimester: Pain Management Plans, Labor support person(s), Immediate Larc, Movement Monitoring, Signs and Symptoms of Preeclampsia and [place] Education Coding Level of Care Code OB Routine Diagnoses Hx of oligohydramnios in prior , currently O09.299 History of depression, currently O99.891; Z86.59 Supervision of high-risk O09.90 12 weeks gestation of Z3A.12 Weeks of gestation: 12 weeks History of shoulder dystocia in prior , currently O09.299 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 Assessment and Plan Assessment and Plan (1) Hx of oligohydramnios in prior , currently : Status: Acute Comment: growth US 36 (2) History of depression, currently : Status: Acute Comment: Not on meds; stable (3) Supervision of high-risk : Status: Acute Comment: PRR, , PRANAY 12/25/25, PC: [place] Dale & Gissel, : Ericka (4) : Status: Acute Qualifiers: Weeks of gestation: 12 weeks Qualified Code(s): Z3A.12 - 12 weeks gestation of Comment: Declines genetic/carrier testing (5) History of shoulder dystocia in prior , currently : Status: Acute Comment: 2nd : 7lbs 11oz, last delivery was fine (6) Luis Felipe's disease: Status: Acute Comment: - self resolved/no tx; Thyroid labs ordered w/NOB Orders: Orders POC Urinalysis 2 Dip (Clinic) Today OB Anatomy w/ Transvaginal 08/16/25 O09.90 - Supervision of high risk , unspecified, unspecified trimester 06/23/25 1446 <Electronically signed by Fanta galvan MD> Date _ Fanta Zarate MD Cosigner Signature: Date (if applicable) CC: ~ [facility] Work Phone: 1(971) 539-188508-21-2025 Evaluation note* Diagnosis Onset Date Resolution Status Admit Date Luis Felipe's disease acute Aug2024 2:53pm History of depres cecilia, currently acute May 27, 2025 2:53pm History of shoulder dystocia in prior , currently acute May 27 2:53pm Hx of oligohydramnios in [place] , currently acute 2024 2:53pm acute [place], 2 025 2:53pm Supervision of high-risk acute May 27 2:53pm [facility] Work Phone: 1(701) 277-777308-21-2025 Evaluation note* Diagnosis Onset Date Resolution Status Admit Date Luis Felipe's disease acute Augus t 2024 2:53pm History of depression, currently acute A ugust 2024 2:53pm History of shoulder dystocia in prior , currently acute May 27 2:53pm Hx of oligohydramnios in [place] , currently acute Au [place] 2024 2:53pm acute May 27, 025 2:53pm Supervision of high-risk acute May 27 2:53pm Luis Felipe's disease acute Septe mber 2024 1:52pm History of depression, currently acute S eptember 2024 1:52pm History of shoulder dystocia in prior , currently acute June 23, 2025 1:52pm Hx of oligohydramnios in [place] , currently acute Se ptember 2024 1:52pm acute June 1:52pm Supervision of high-risk acute June 23, 2025 1:52pm [facility] Work Phone: 1(513) 756-948808-21-2025 Progress [facility] [address] [place] [address], [address] [place] [address] OFFICE VISIT Date of Service: 05/27/25 MR#: [id number] Acct: [id number] Name: TWYLANAYELI RAH Rep #: [id number] : 1995 Provider: CHICO Virk Age/Sex: 29/F [place] [facility] [place]: Signed Intake Vital Signs 11/18/24 08:47 04/27/25 14:36 05/27/25 14:55 Height 5 ft 2 in 5 ft 2 in 5 ft 2 in Weight: 164 lb BMI 29.9 BP 106/71 Intake Visit Reasons: *EST* NOB LMP 03/20, PRANAY 12/25 Chief Complaint: New OB Technical Photographer Required: No Is patient in pain?: No Allergies No Known Allergies Allergy (Verified 05/27/25 14:54) Medications ?Medication ?Instructions ?Recorded ?Confirmed ?Type iyqjhqca-gey-Rp-FA 1 mg 1 tab PO DAILY pregna ncy 04/23/22 05/27/25 History tablet valacyclovir 1 gram tablet 2,000 mg (2 x 1 gram) PO BI D PRN 03/24/25 05/27/25 Rx (Valtrex) cold sore #4 tabs Last Menstrual Period: 03/20/25 PFSH PFSH Medical History History of shoulder dystocia Anxiety depression Seasonal allergies Family history of autistic disorder Surgical History [place] teeth extracted History of surgery Family History Grandmother Breast cancer, Onset Age: 65 maternal Aunt Breast cancer, Onset Age: 60 Maternal Sister Thyroid disorder Mother Thyroid disorder Hypertension Sister Thyroid disorder Father Hypertension Social History adopted: No household members: spouse and children number of children: 3 current occupational status: employed 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 Daniela Santos 01/14/24 Merelyn 37 live - full term 6lbs 11oz Female epidural [employer] JV Ericka Delivery Date: 02/12/21 Last Updated [...] (Rh) Sensitized, Pulmonary (e.g.,TB,Asthma), Drug/latex allergies/reactions, Breast, Financial Systems Administrator surgery, Anesthetic complications, History of abnormal pap, [...] 05/27/25 1520 s CNM> Date _ Juliet Moose CHICO Cosigner Signature: Date (if applicable) CC: ~ [facility]08-21-2025 Progress note Author Juliet Virk [facility] Services Note Date/Time May 27, 2025 3: 20pm [facility] [address], [address] [place] [address] OFFICE VISIT Date of Service: 05/27/25 MR#: [id number] Acct: [id number] Name: NAYELI HERNANDEZ Rep #: [id number] : 1995 Provider: CHICO Virk Age/Sex: 29/F [place] [facility] Status: Signed Intake Vital Signs 11/18/24 08:47 04/27/25 14:36 05/27/25 14:55 Height 5 ft 2 in 5 ft 2 in 5 ft 2 in Weight: 164 lb BMI 29.9 BP 106/71 Intake Visit Reasons: *EST* NOB LMP 03/20, PRANAY 12/25 Chief Complaint: New OB Technical Photographer Required: No Is patient in pain?: No Allergies No Known Allergies Allergy (Verified 05/27/25 14:54) Medications ?Medication ?Instructions ?Recorded ?Confirmed ?Type fonadtme-xqi-Jb-FA 1 mg 1 tab PO DAILY pregna ncy 04/23/22 05/27/25 History tablet valacyclovir 1 gram tablet 2,000 mg (2 x 1 gram) PO BI D PRN 03/24/25 05/27/25 Rx (Valtrex) cold sore #4 tabs Last Menstrual Period: 03/20/25 PFSH PFSH Medical History History of shoulder dystocia Anxiety depression Seasonal allergies Family history of autistic disorder Surgical History [place] teeth extracted History of surgery Family History Grandmother Breast cancer, Onset Age: 65 maternal Aunt Breast cancer, Onset Age: 60 Maternal Sister Thyroid disorder Mother Thyroid disorder Hypertension Sister Thyroid disorder Father Hypertension Social History adopted: No household members: spouse and children number of children: 3 current occupational status: employed 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 Daniela Santos 01/14/24 Merelyn 37 live - full term 6lbs 11oz Female epidural [facility] [employer] JV Ericka Delivery Date: 02/12/21 Last Updated [...] spotting, super heavy, very clotty, very painful ( cycle)) Frequency in days: 30 On hormonal [...] (Rh) Sensitized, Pulmonary (e.g.,TB,Asthma), Drug/latex allergies/reactions, Breast, Financial Systems Administrator surgery, Anesthetic complications, History of abnormal pap, [...] Cosigner Signature: Date (if applicable) CC: ~ [facility] Work Phone: 1(575) 169-823108-02-2025 Evaluation note* Diagnosis Onset Date Resolution Status Admit Date Luis Felipe's disease acute Augus t 2024 2:53pm History of depres cecilia, currently acute May 27, 2025 2:53pm History of shoulder dystocia in prior , currently acute May 27 2:53pm Hx of oligohydramnios in [place] , currently acute Au 2024 2:53pm acute May 27, 025 2:53pm Supervision of high-risk acute May 27 2:53pm [facility] Work Phone: 1([phone]) 587-691904-10-2024 Progress note Author Liza Park [facility] January 15, 2024 8:19am Note Date/Time January 15, 2024 8:1 9am [facility] Medical Records Department [address] [place] [address] Progress Note - OBGYN 01/15/24 0817 MR#: [id number] Acct: [id number] Name: TWYLANAYELI MONREAL Rep #:[id number] : 1995 28 From: Liza Park CNM PCP: Care Physician,No Primary Status :ADM IN [facility] Subjective Subjective Patient doing well without complaints. [...] Plan (1) Spontaneous vaginal delivery: COMMENT: 01/14/24 girl Merelyn JV (2) H/O depression, currently : COMMENT: no meds. stable PLAN: Plan s/p PPD # 1 1. routine post delivery care 2. breast feeding- support given 3. rh positive 4. rubella immune 5. d/c home today. 01/15/24 0819 <Electronically signed by Liza Park CNM> Cosigner Signature (if applicable): CC: ~ Signed [facility] Work Phone: 1(718) 647-723504-09-2024 Discharge summary Author Radha Villalobos [facility] January 14, 2024 1:05am Note Date/Time January 14, 2024 1:[address] [facility] Medical Records Department [address] [place] [address] Instructions for Home/Discharge Instructions 01/14/24 0104 MR#: [id number] Acct: [id number] Name: TWYLANAYELI RAH Rep #:[id number] : 1995 28 From: [...] Up With: Radha Jin DO When: Call [phone] to make an appointment with your doctor [...] CC: No Primary Care Physician ~ Signed [facility] Work Phone: [phone]) 887-541004-09-2024 Procedure [facility] 01-13-2024 Progress note Author Radha Villalobos [facility] January 13, 2024 5:22pm Note Date/Time January 13, 2024 5:22 pm [facility] Medical Records Department [address] [place] [address] Progress Note 01/13/24 1720 MR#: [id number] Acct: [id number] Name: NAYELI HERNANDEZ Rep #:[id number] : 1995 28 From: Radha Jin DO PCP: Care Physician,No Primary Status :ADM IN Location: [place] [id number] Progress Note pt is status post one dose of cytotec and consents to either a [place] balloon or arom. current tracing: FHT: Moderate variability reactive no decelerations category I tracing [place]: q2-3 min Contractions cx: internally is 3-4/ external 2/70/-2, membranes ruptured with clear fluid return A/P: pt wants epidural before starting pitocin 01/13/24 1722 <Electronically signed by Radha Jin DO> Radha Jin DO Cosigner Signature (if applicable): CC: ~ Signed [facility] Work Phone: 1(623) 296-295304-08-2024 History and physical note Author Fanta Zarate [facility] January 13, 2024 2:28pm Note Date/Time January 13, 2024 2:[address] [facility] Medical Records Department [address] [place] [address] History & Physical Exam 01/13/24 1428 MR#: [id number] Acct: [id number] Name: NAYELI HERNANDEZ Rep #:[id number] : 1995 28 From: Fanta freeman MD PCP: Care Physician,No Primary Status :ADM IN Location: [facility]-8 History and Physical Vital Signs 01/07/2414:50 01/12/2411:31 01/12/2411:33 01/13/2412:01 Height 5 ft 2 in 5 ft 2 in 5 ft 2 in Weight: 164 lb BMI 29.9 BP 116/75 Intake Visit Reasons: 37 WK OB PER JV Technical Photographer Required: No Is patient in pain?: No Allergies No Known Allergies Allergy (Verified 01/13/24 12:46) Medications jiqryzsp-odg-By-FA 1 mg tablet 1 tab PO DAILY 04/23/22 [History Confirmed 01/13/24] sertraline 50 mg tablet (Zoloft) 50 mg PO DAILY anxiety #90 tabs 11/13/23 [Rx Confirmed 01/13/24] Last Menstrual Period: 04/26/23 Zika: Zika virus screening: Negative : No PFSH PFSH Medical History (Updated 01/13/24 @ 14:[address] aFnta Zarate MD) Anxiety Family history of autistic disorder Gastric ulcer Oligohydramnios depression Seasonal allergies Shoulder dystocia during labor and delivery, delivered Vaginal delivery Surgical History History of surgery [place] teeth extracted Family History GrandmotherBreast cancer, Onset [...] times per week duration: 30-45 minutes/day tigre/baptism: Rastafarian seatbelt use: always do you feel safe at home: Yes additional social history: - Ericka Sequeira, PT Investment Banking Associate History 3 Elective abortions Hx Para 2 [...] full term 7#11oz Fe male ? epidural [facility] Dr. Daniela Santos Delivery Date: 02/12/21 Last [...] Negative 143 24 ? -?-?-?-?-?-?-?-?-?-?-?- ?- ? -No VB, LOF. Good Fm. Did labs today. [...] oz and the plan was to consult [facility] for an amnio and early delivery before baby gets over 7 lbs due to 1 min shoulder dystocia with last . will wait for results before consulting [facility]. 01/13/24-?-?-?-?-?-?-?-?-?-?-?-?- 37w 3d 164 lb 116/75 [...] comfortable and no acute distress Orientation: alert [facility] Head: normal to inspection, normocephalic and atraumatic [...] Comment: PRR , PRANAY 01/30/23 girl Merelyn [place], -Ericka (4) : Status: Acute Qualifiers: Weeks of gestation: 37 weeks Qualified Code(s): Z3A.37 - 37 weeks gestation of Comment: normal anatomy, declined genetic, ntd, & carrier testing (5) Oligohydramnios in third trimester: Status: Acute Comment: recommend IOL Plan Patient presents IOL, plan management for with pitocin/AROM. Pain management: need to discuss GBS negative. Management of any complications: none I have reviewed the [facility] and made any clinically relevant updates. 01/13/24 1428 <Electronically signed by Fanta Zarate MD> Cosigner Signature (if applicable): CC: Dr. Fanta Zarate MD; No Primary Care Physician~ Signed [facility] Work Phone: 1(367) 761-357409-18-2023 NotePap Smear Specimen AdequacySeptember 2022 10:16amComment.Satisfactory for evaluation. Endocervical and/or squamous metaplasticcells (endocervical component)are present.[facility] A#[id number] [facility] St[facility] HospitalComment on above:Satisfactory for evaluation. Endocervical and/or squamous metaplasticcells (endocervical component)are present.06-24-2023 NotePap Smear Specimen AdequacySeptember 2022 10:16amComment.Satisfactory for evaluation. Endocervical and/or squamous metaplasticcells (endocervical component)are present.[facility] A#[id number] Health St. [facility] HospitalComment on above:Satisfactory for evaluation. Endocervical and/or squamous metaplasticcells (endocervical component)are present.06-24-2023 NotePap Smear Specimen AdequacySeptember 2022 9:16amComment.Satisfactory for evaluation. Endocervical and/or squamous metaplasticcells (endocervical component)are present.[facility] A#[id number] Health St. [facility] HospitalComment on above:Satisfactory for evaluation. Endocervical and/or squamous metaplasticcells (endocervical component)are present.11-17-2021 History of Present illness Narrative* Pamrjit Enrique MD - 11/17/2021 10:50 AM EST Follow Up Visit Nayeli Hernandez [id number] 1995 11/17/2021 Chief Complaint Patient presents with [...] 2 g, Rfl: 11 ergocalciferol 1.25 MG (28200 UT) capsule, Take 50,000 Units by mouth [...] Use Authorization (EUA) for the qualitative detection [id number] nucleic acid. No images are attached to [...] HEALTH Parmjit Enrique MD [facility] History of Present illness Narrative* Parmjit Enrique [...] daily. 2 g 11 ergocalciferol 1.25 MG (53703 UT) capsule Take 50,000 Units by mouth [...] or bloody stools. No urinary tract symptoms. MARKETING AND PUBLIC RELATIONS MANAGER ROS: no breast pain or new [...] return annually or prn documented in this [facility]Tr[facility]05-[facility]-2021 Emergency department Note* Sagar Rodriguez MD - 02/26/2021 10:02 PM EDT Emergency Department Report [facility] EMERGENCY DEPARTMENT Service Date:.02/26/21 PCP: Parmjit Enrique [...] Surgeon: Gerri Hicks MD; Location: [facility] OR EGD DIAGNOSTIC 2019 WISDOM TEETH EXTRACTION [...] and Family: Three times a week Attends Congregational Services: Not on file Active Member of [...] information. . . Sagar Rodriguez MD 02/26/21 1362 documented in this encounterTr[facility]ull [facility]05-06-2021 Miscellaneous Notes* Nursing Notes - Beryl Winters [...] from previous assessments done before. Patient gracie. hard to trace. arrhythmia heard on monitor. Dr. Flower assessed strip. Informed Dr. Flower patient positioned on side and now tracing better with no arrhthymia heard. Dr. Flower said to monitor patient for another hour and have patient follow up tomorrow in office with Dr. Amor. documented in this encounterTr[facility]ull [facility]05-05-2021 History of Present illness Narrative* Isabel Virk RN - 02/08/2021 10:45 PM EDT Pt arrives on unit 38+3, c/o leaking of fluid since about 1730 this evening, pt also reports ctx q 2-3 mins x 2 days. +FM denies VB. Pt denies complications with this but does report GBS+ status. Monitors placed, VS obtained, SVE, and swabs obtained. documented in this [facility]05-04-2021 History of Present illness Narrative* Mady Amor MD - 02/07/2021 10:20 AM EDT [facility] 25 y.o. at 38w2d Anxiety, GBS+ -VB, -LOF, -Ctx, +FM She reports painful contractions since yesterday. She is now having back pain, as well. Today: Cervix closed - IOL scheduled for 1899 on 02/12/21 starting with cervical ripening. No future appointments. documented in this [facility]05-04-2021 Procedure note* Mady Amor MD - 02/07/2021 10:20 AM EDT Associated Order(s): NJ NON-STRESS TEST Procedure(s): NJ NON-STRESS TEST Pre-Procedure Diagnose(s): Uterine contractions during Post-Procedure Diagnose(s): Uterine contractions during Non-stress Test Gestational age: 38w2d Indication: Rule out labor Baseline: 135 bpm 15x15s: present Variability: moderate Decelerations: absent Contractions: q1-2min Duration >20 minutes Comments: REACTIVE 02/07/21 Mady Amor MD documented in this [facility]05-03-2021 Miscellaneous Notes* Nursing Notes - Karla Krishnan [...] provide a urine sample. documented in this [facility]05-03-2021 Hospital Discharge instructions* Instructions* Karla Krishnan RN - 02/06/2021 [place] Pad[place] Contractions: Care Instructions Your Care Instructions Christian Padilla contractions prepare your uterus for labor. Think of them as a warm-up exercise that your body does. You may begin to feel them between the 28th and 30th weeks of your . But they start as early as the 20th week. Christian Padilla contractions usually occur more often during the ninth month. They may go away when you are active and return when you rest. These contractions are like mild contractions of true labor,but they occur less often. (You feel fewer than 8 in an hour.) They don't cause your cervix to open. It may be hard for you to tell the difference between [place] Padilla contractions and true labor, especially in [...] Where can you learn more? Go to http://www.HealthMicro.[email or web address].[email or web address]/patiented. Enter Z402 in the search box to learn more about 'Christian Padilla Contractions: Care Instructions.' Interested in seeing a video go to [email or web address]/videolibrary to see all video content. Current as of: July 14, 2020 Content Version: 09.13 JumpSeat. Care instructions adapted under license by your healthcare professional. If you have questions about a medical condition or this instruction, always ask your healthcare professional. JumpSeat disclaims any warranty or liability for your [...] you aren't sure, call your doctor or stock preparer.As your labor progresses, check in with your doctor or stock preparer about when to come back to the [...] off your contractions. Ask your partner, labor sales coach, or garment inspector for a massage. Shoulder and low back massage during contractions may ease your pain. Strong massage of the back muscles (counterpressure) during contractions may help relieve the pain of back labor. Tell your labor sales coach exactly where to push and how hard to push. Use imagery. This means using your imagination to decrease your pain. For instance, to help manage pain, picture your contractions as waves rolling over you. Picture a peaceful place, such as a [place], to help you relax between [...] Where can you learn more? Go to http://www.HealthMicro.[email or web address].edu/patiented. Enter W539 in the search box to learn more about 'Early Stage of Labor at Home: Care Instructions.' Interested in seeing a video go to [email or web address]/videolibrary to see all video content. Current as of: July 14, 2020 Content Version: 12.8 JumpSeat. Care instructions adapted under license by your healthcare professional. If you have questions about a medical condition or this instruction, always ask your healthcare professional. JumpSeat disclaims any warranty or liability for your use of this information. documented in this [facility] Monitoring [id number] History of Present illness Narrative* Rosita Chacon [...] movement. Denies any concerns [facility] this [id number] History of Present illness Narrative* Mady Amor MD - 01/26/2021 8:30 AM EDT [facility] [place] 25 y.o. at 36w4d Anxiety -VB, -LOF, -Ctx, +FM Today: GBS collected. Cervix closed. No issues - Return OB visit in 1 week. Future Appointments Date Time Provider Department Center 02/02/2021 1:30 PM Rosita Chacon, MANAGER [employer]TEGRATED[employer]RE[employer] FORWARDER 043OG [facility] * Keeley Alan LPN - 01/26/2021 8:30 [...] N/A 36w4d GBS pending documented in [facility]Tr[facility]* Diagnosis 36 weeks gestation of - Primary state, incidental Family history of clotting disorder Family history of other blood disorders [facility] Diagnosis Encounter for supervision of normal first in third trimester- Primary Supervision of normal first Uncertain lie of fetus, single or unspecified fetus Anxiety Anxiety state, unspecified 37 weeks gestation of state, incidental documented in [facility]* Diagnosis Uncertain lie of fetus, single or unspecified fetus documented in this [facility]* Diagnosis Encounter for elective induction of labor- Primary Anxiety Anxiety state, unspecified Family history of clotting disorder Family history of other blood disorders Uterine contractions during documented in this [facility]* Diagnosis Dysuria- Primary documented in this [facility]* Diagnosis Routine general medical examination at a health care facility- Primary documented in this [facility]* Diagnosis Anxiety disorder, unspecified type- Primary Dysthymia Dysthymic disorder documented in this encounter [facility] Center[facility] noteNo assessment information availableWRegional Medical Center Work Phone: evaluation note* Diagnosis Onset Date Resolution Status acute [facility] Work Phone: evaluation note* Diagnosis Onset Date Resolution Status acute acute [facility] Work Phone: Evaluation note* Diagnosis Onset Date Resolution Status acute acute acute acute Vaginal delivery [facility] Work Phone: evaluation note* Diagnosis Onset Date Resolution Status H/O depression, currently acute History of shoulder dystocia acute acute Supervision of high-risk [facility] Work Phone: evaluation note* Diagnosis Onset Date Resolution Status H/O depression, currently acute History of shoulder dystocia acute acute Supervision of high-risk acute H/O depression, currently acute History of shoulder dystocia acute acute Supervision of high-risk [facility] Work Phone: evaluation note* Diagnosis Onset [...] dystocia acute acute Supervision of high-risk acute [facility] Work Phone: evaluation note* Diagnosis Onset [...] dystocia acute acute Supervision of high-risk acute [facility] Work Phone: Evaluation note* Diagnosis Onset Date [...] trimester acute acute Supervision of high-risk acute [facility] Work Phone: Evaluation note* Diagnosis Onset Date [...] trimester resolved resolved Supervision of high-risk resolved [facility] Work Phone: Hospital Discharge instructions* Instructions* Beryl [...] healthcare provider may describe these contractions as [place]- Padilla or signs of false labor. These [...] away. 2016 - May 14, 2019, [facility]. This handout is for informational purposes only. Talk with your doctor or healthcare team if you have any questions about your care. For more health information call the [employer] Information at [phone] or email: [email or web address]. Signs of Labor Mucus plug Some [...] effaced. 2016 - May 14, 2019, [facility]. This handout is for informational purposes only. Talk with your doctor or healthcare team if you have any questions about your care. For more health information call the [employer] Information at [phone] or email: [email or web address]. documented in this encounterTrumbull [facility] Medical CenterHospital Discharge instructions* Attachments The following attachments cannot be sent through Care Everywhere. * Dysuria (Swedish) documented in this encounterTrumbull Regional Medical CenterReason for referral (narrative)* Consultation (Routine) - New Request Specialty Diagnoses / Procedures Referred By Nancy jasmine Referred To Contact Diagnoses Anxiety disorder, unspecified type Dysthymia Parmjit Enrique MD [address] [place] [phone] Referral ID Status Reason Start Date Expiration Date V isits Requested Visits Authorized [id number] New Request 11/21/2021 12/16/2022 1 1 [facility] for referral (narrative)No reason for referral information availableDeaconess Cross [facility]inte [facility] Services Work Phone: Instructions * Patient Instructions* [...] Instructions Your Care Instructions Herpes gingivostomatitis (say TRU-act-xal-mhvi-udy-EH-tus) is a viral infection, caused by the [...] your doctor if your child can take cjgpsh-mzw-xbdasjz medicine. Do not give aspirin to anyone [...] Log into your personal health record on https://Debteyet.Mobile Multimedia and enter Y555 in the Education box to learn more about Herpes Gingivostomatitis in Children: Care Instructions. Current as of: February 15, 2017 Content Version: 11.6 3166-9270 JumpSeat. Care instructions adapted under license by your healthcare professional. If you have questions about a medical condition or this instruction, always ask your healthcare professional. JumpSeat disclaims any warranty or liability for your [...] you are older than 45 and are -[place] Citizen or have a father or brother who got prostatecancer when he was younger than 65. When should you call for help? Watch closely for changes in your health, and be sure to contact your doctor if you have any problems or symptoms that concern you. Where can you learn more? Log into your personal health record on https://Knottykart.Mobile Multimedia and enter P072 in the Education box to learn more about Well Visit, Ages 18 to 50: Care Instructions. Current as of: February 19, 2017 Content Version: 11.6 1317-6215 JumpSeat. Care instructions adapted under license by your healthcare professional. If you have questions about a medical condition or this instruction, always ask your healthcare professional. JumpSeat disclaims any warranty or liability for your [...] you are older than 45 and are -[place] Citizen or have a father or brother who got prostatecancer when he was younger than 65. When should you call for help? Watch closely for changes in your health, and be sure to contact your doctor if you have any problems or symptoms that concern you. Where can you learn more? Log into your personal health record on https://Debteyet.Mobile Multimedia and enter P072 in the Education box to learn more about Well Visit, Ages 18 to 50: Care Instructions. Current as of: February 19, 2017 Content Version: 11.6 5811-5461 JumpSeat. Care instructions adapted under license by your healthcare professional. If you have questions about a medical condition or this instruction, always ask your healthcare professional. JumpSeat disclaims any warranty or liability for your use of this information. in this encounter* Patient Instructions* Qing Love LPN - 06/14/2020 11:00 AM EDT 1 documented in this encounter History of Present Illness * Mady Farrell MD - 08/21/2018 1:18 PM EST Subjective Patient ID: Nayeli Sullivan is a 22 y.o. female. [facility] establish care. Patient is new to this [...] tomato based products. She has tried several ired-mcu-fucjthv topical preparations. The following portions of the [...] AM EDT New Patient Visit Nayeli Hernandez [id number] 1995 02/04/2020 Chief Complaint Patient presents with Establish Care History of Present Illness: Nayeli Hernandez is a 24 y.o. 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 Denies any other concerns at this time. [...] file Gets together: Not on file Attends zoroastrianism service: Not on file Active member of [...] culture performed due to age - MYRNA CYTOLOGY-MARKETING AND PUBLIC RELATIONS MANAGER, LIQUID BASED; Future 3. Screening for STDs (sexually transmitted diseases) - MYRNA CYTOLOGY-MARKETING AND PUBLIC RELATIONS MANAGER, LIQUID BASED; Future 4. Encounter for [...] sleeping better, using benadryl. 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 At [...] Amor MD - 12/26/2020 1:30 PM EDT [facility] Ms. Nayeli Hernandez is a [...] Department Center 01/12/2021 9:00 AM Rosita Chacon, MANAGER [employer] 043OG MYRNA TRISH Amor MD documented in this encounter* aMdy Amor MD - 01/12/2021 9:00 AM EDT [facility] [place] 25 y.o. at 34w4d Anxiety -VB, -LOF, [...] of state, incidental Summary Purpose Family History Relationship Condition Age at Onset Recorded Date/T manuel grandmother Malignant neoplasm of breast 65 aunt Malignant neoplasm of breast 60 Relationship Condition Age at Onset Recorded Date/T manuel grandmother Malignant neoplasm of breast 65 aunt Malignant neoplasm of breast 60 sister Disorder of thyroid Unknown mother Disorder of thyroid Unknown Hypertension Unknown father Hypertension Unknown Advance Directives Latest Code Status on File Code Status Date Activated Date Inactivated Comments Full Code 02/14/2021 7:26 AM Latest Code Status on File Code Status Date Activated Date Inactivated Comments Full Code 02/14/2021 7:26 AM Advance Directive Response Recorded Date/ Time Living Will No June 21, 2022 7:44am Power of Switch Engineer No June 7:44am Advance Directive Response Recorded Date/ Time Living Will No June 21, 2022 6:44am Power of Switch Engineer No June 6:44am Advance Directive Response Recorded Date/ Time Name of Medical Power of Switch Engineer ericka mitchells January 13, 2024 2:43pm Living Will Yes January 13, 2024 2:43pm Power of Switch Engineer Yes January 12 2:43pm Reason for Referral Status Reason Specialty Diagnoses / Procedures Referred By Contact Referred To Contact New Request Diagnoses Ganglion cyst of wrist, right Procedures XR HAND RIGHT 3+ VIEWS Ceci Che, GIDEONC [address] [id number] Status Reason Specialty Diagnoses / Procedures Referred By Contact Referred To Contact Auth Not Needed Ultrasound Diagnoses 10 weeks gestation of Procedures US OB DATING ABDOMINAL < 14WEEKS Mady Amor MD [address] [place] [phone] [facility] [address] [place] [phone] Status Reason Specialty Diagnoses / Procedures Referre d By Contact Referred To Contact Closed Ultrasound Diagnoses 10 weeks gestation of Procedures US OB DATING ABDOMINAL < 14WEEKS Mady Amor MD [address] [place] [phone] [facility] [address] [place] [phone] Status Reason Specialty Diagnoses / Procedures Referre d By Contact Referred To Contact Closed Diagnoses 20 weeks gestation of Procedures US OB ANATOMY Sandra Mchugh, MANAGER [employer]TE[employer] FORWARDER [address] [place] [address] Status Reason Specialty Diagnoses / Procedures Referred By Contact Referred To Contact New Request Diagnoses Uncertain lie of fetus, single or unspecified fetus Procedures US OB LIMITED/NERISSA Rosita Chacon Asia, MANAGER [employer]TE[employer] FORWARDER [id number] [place] [address] Discharge Instructions * Instructions* Lois Cash RN [...] free to contact your physician by calling [phone] ([phone]). If it is after hours you can contact the combat control doctor by calling [facility] at [phone]. Prescription refills will only be done during [...] next business day for an appointment at [phone] ([phone]) documented in this encounter* Attachments The following attachments cannot be sent through Care Everywhere. 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 History of depression, darryl oliveira May 27, 2025 2:53pm History of shoulder dystocia in prior , currently May 27, 2025 2:53pm Hx of oligohydramnios in belinda or , currently May 27, 2025 2:53pm May 27, 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 Supervision of high-risk Mayus t 2024 2:53pm 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, 2025 1:52pm History of depression, darryl oliveira June 23, 2025 1:52pm History of shoulder dystocia in prior , currently June 23, 2025 1:52pm Hx of oligohydramnios in belinda or , currently June 23, 2025 1:52pm June 23, 2025 1:52pm Supervision of high-risk Rachell sharma 2024 1:52pm Additional Source Comments Reason for Visit (unrecogniz ed section and content) Reason Comments Establish Care Mouth Lesions Reason Comments Establish Care Reason Comments New Patient right wrist cyst Status Reason Specialty Diagnoses / Procedures Referred By Contact Referred To Contact New Request Diagnoses Ganglion cyst of wrist, right Procedures XR HAND RIGHT 3+ VIEWS Ceci Che, SOPHIE [address] [place] [address] Reason Comments Cyst Pre-operative Evaluation Status Reason Specialty Diagnoses / Procedures Referre d By Contact Referred To Contact Diagnoses Ganglion of right wrist Ganglion of right wrist [M67.431] Procedures NJ EXC FABBY/VASC MAL SFT TISS HAND/FNGR SUBQ [...] 14WEEKS Mady Amor MD [address] [place] [phone] [facility] [address] [place] [address] Reason Comments 11.1 weeks Reason Comments 16w1d, sciatic pain, loosing hair. Reason Comments 20w1d Reason Comments Annual Exam MUSIC PASTOR Last pap 12/2018 a t [facility] [...] of Procedures US OB ANATOMY Sandra Mchugh, MANAGER [employer]TE[employer] FORWARDER [address] [place] [phone] Reason Comments 34w4d, patient denie s any problems Reason Comments 36.4 Reason Comments 37.4 Status Reason Specialty Diagnoses / Procedures Referred By Contact Referred To Contact New Request Diagnoses Uncertain lie of fetus, single or unspecified fetus Procedures US OB LIMITED/NERISSA Rosita Chacon, MANAGER [employer] FORWARDER [id number] [phone] Reason Comments Contractions Reason Comments 38w2d, Contractions started last night at 7:30 am Reason Comments Contractions Pt is 38+3 gbs + rep orts leaking fluid since 1730 and ctx q 2-3 mins x 2 [...] section and content) DATE CREATED AUTHOR 11/25/2018 [facility] DATE CREATED AUTHOR AUTHOR'S ORGANIZ ATION 12/15/2018 [facility] DATE CREATED AUTHOR AUTHOR'S ORGANIZ ATION 12/20/2018 [facility] DATE CREATED AUTHOR AUTHOR'S ORGANIZ ATION 12/23/2018 [facility] DATE CREATED AUTHOR AUTHOR'S ORGANIZ ATION 09/12/2019 [facility] DATE CREATED AUTHOR AUTHOR'S ORGANIZ ATION 08/25/2021 [facility] DATE CREATED AUTHOR AUTHOR'S ORGANIZ ATION 11/23/2021 [facility] DATE CREATED AUTHOR AUTHOR'S ORGANIZ ATION 04/26/2024 [facility] DATE CREATED AUTHOR AUTHOR'S ORGANIZ ATION 06/21/2025 [facility] Kristina Dumont RN - 11/25/2020 12:05 AM Bartolo Lozano MD - 11/24/2020 9:55 PM EST ED Notes (unrecognized secti on and content) Patient discharged in stable condition. Discharge instructions given. Patient verbalizes understanding and has no questions at this time. Emergency Department Report [facility] Service Date:.11/24/20 PCP: [...] Laterality: Right; Surgeon: Gerri Hicks MD; Location: [facility] GAL OR EGD DIAGNOSTIC 2019 WISDOM TEETH [...] and Family: Three times a week Attends Congregational Services: Not on file Active Member of [...] CARE 105 (H) 70 - 100 MG/DL Mechanical Engineering Intern [id number] URINALYSIS, MACRO Result Value Ref Range [...] moderate improvement in her symptoms. OB and MARKETING AND PUBLIC RELATIONS MANAGER nurse did a heart tones and [...] above information. . Bartolo Zheng MD 11/24/20 [id number] documented in this encounter Care Teams (unrecognized sec tion and content) Employee Relations Representative Relationship Specialty Start Date End Date Parmjit Enrique MD [address] [place] [address] PCP - General Family Medicine 02/01/20 Employee Relations Representative Relationship Specialty Start Date End Date Parmjit Enrique MD [address] [place] [address] PCP - General Family Medicine 02/01/20 Team [...] Provider, Refer ring Provider Active Megan Love MUSIC PASTOR, MUSIC PASTOR-C Attending Provider Active Team Status: Inactive Member [...] 2025 End: May 27, 2025 Team Status: Active Member Role/Relationship Status Dates Dr. Laureen Rasmussen MD Primary care physician Active Team Status: Active Member Role/Relationship Status Dates Dr. Laureen Rasmussen MD Primary care physician Active Start: May 14, 2025 Beryl Kamara RN Attending physician Active S tart: May 14, 2025 Team Status: Inactive Member Role/Relationship Status Dates Dr. Laureen Rasmussen MD Primary care physician Active Start: May 27, 2025 End: May 27, 2025 Dr. Laureen Rasmussen MD Referring Provider Active Start: May 27, 2025 End: May 27, 2025 Juliet Virk CNM Attending physician Active Start: May 27, 2025 End: May 27, 2025 Team Status: Inactive Member Role/Relationship Status Dates Dr. Laureen Rasmussen MD Primary care physician Active Start: May 27, 2025 End: May 27, 2025 Juliet Virk CNM Attending physician Active Start: May 27, 2025 End: May 27, 2025 Juliet Virk CNM Referring Provider Active S tart: May 27, 2025 End: May 27, 2025 Team Status: Active Member Role/Relationship Status Dates Dr. Laureen Rasmussen MD Primary care physician Active Start: June 16, 2025 Juliet Virk CNM Attending physician Active Start: June 16, 2025 Juliet Virk CNM Referring Provider Active S tart: June 16, 2025 Team Status: Inactive Member Role/Relationship Status Dates Dr. Laureen Rasmussen MD Primary care physician Active Start: June 23, 2025 End: June 23, 2025 Dr. Laureen Rasmussen MD Referring Provider Active Start: June 23, 2025 End: June 23, 2025 Dr. Fanta Zarate MD Attending physician Active Start: June 23, 2025 End: June 23, 2025 Goals (unrecognized section and content) Type Care Experience svdLabor Preferences -CB/BF classes: nolabor support person: Wyattlabor intervention preferences: []pain management options preferred: epidural okcut cord/dad catch: cordbreastfeeding: yesPP control planned: discusseddiscussed possible routes of delivery and associated risks: []special requests: [] Care Experience Labor Preferences-CB /BF classes: []labor support person: []labor intervention preferences: []pain management options preferred: []cut cord/dad catch: []: []PP control planned: []discussed possible routes of delivery and associated risks: []special requests: [] FOR RECORDS PERTAINING TO PATIENTS WHO ARE [...] BE BASED ON THE PRIMARY CLINICAL RECORDS. [employer] provides no warranty or guarantee of the accuracy or completeness of information in this document.
== END | disposition home or self-care (01) ==
LOC: LABSPEC 15:18
PROVIDERS: PCP Internal Medicine; Referring Provider Obstetrics & Gynecology; Visit Provider Obstetrics & Gynecology
DX: N89.8 Other specified noninflammatory disorders of vagina (principal)
CPT/HCPCS: 87070; 87205

== ENCOUNTER 2025-07-25 14:23 | Emergency (ER) | payer MEDICAID, SELFPAY ==
[2025-07-25 14:24] VITALS: BP 116/76; PULSE 66; RESP 16; TEMP 36.6; O2SAT 100; BMI 30.4
--- NOTE | 2025-07-25 14:32 | ED.RN ---
Patient states she was sent here for DVT study. Patient informed that we do not have someone electronic technologist for vascular ultrasound after 1 pm. Patient declines wanting to wait to be seen by a physican if we cannot do the ultrasound at this time.
--- OUTSIDE RECORDS SUMMARY | 2025-07-25 14:39 | XMS RPT_ITS | CCD ---
Author Organization [facility] Care Team Providers Care Scene Shifter Name Role Phone Mady Farrell Primary Care Provider [phone] LIZET THOMAS Attending Unavailable MADY FARRELL Primary [...] Provider Parmjit Enrique MD Primary Care Provider Dr. Fanta Zarate Attending Provider CHICO Virk Attending Provider [phone] Care Physician, No Primary Primary Care Provider Unavailable Care Physician, No Primary Referring Provider Un available Dr. Fanta Zarate Attending Provider CHICO Virk Attending Provider [phone] Care Physician, No Primary Primary Care Provider Unavailable Care Physician, No Primary Referring Provider Un available Ivan ROTOR ASSEMBLER, MANINDER Guzman Attending Provider Care Physician, No Primary Primary Care Provider Unavailable Care Physician, No Primary Referring Provider Un available Dr. Fanta Zarate Attending Provider MANINDER Love NP Attending Provider Dr. Radha Jin Attending Provider [phone] Care Physician, No Primary Primary Care Provider Unavailable Care Physician, No Primary Referring Provider Un available Dr. Fanta Zarate Attending Provider [phone] Dr. Fanta Zarate Referring Provider [phone] Dr. Fanta Zarate Other Provider [phone] Dr. Fanta Zarate Admit Provider [phone] Dr. Radha Jin Admit Provider Dr. Radha Jin Other Provider CHICO Park Attending Provider [phone] NO PRIMARY CARE, MD Primary Care Unavailable MELANI MEHTA Referring Unavailable BRITTANY LEVY Attending Unavailable Dr. Laureen Rasmussen MD Primary Care Provider [phone] Beryl Kamara RN Attending Provider Unavailabl e Dr. Laureen Rasmussen MD Referring Provider Juliet Virk CNM Attending Provider [phone] Juliet Virk CNM Referring Provider [phone] Dr. Laureen Rasmussen MD Primary Care Physician Beryl Kamara RN Attending Physician Unavailab Juliet Andrea CNM Attending Physician [phone] Dr. Fanta Zarate MD Attending Physician Dr. Fanta Zarate MD Referring Provider [phone] Juliet Virk Referring Unavailable Grady, Laureen Primary Care Unavailable Juliet Virk Attending Unavailable Sagar Veronica Primary Care Unavailable Farzad CANTRELL, Sagar Attending Unavailable Sagar Veronica Referring Unavailable Grady, Laureen Referring Unavailable Grady, Laureen Primary Care Unavailable Juliet Virk Attending Unavailable Downs Laureen Attending Unavailable Downs, Laureen Primary Care Unavailable Care Physician, No Primary Referring Unava ilable Downs, Laureen Primary Care Unavailable Beryl Kamara Attending Unavailable Grady, Laureen Referring Unavailable IvanMegan velez NP Attending Unavailable Downs, Laureen Primary Care Unavailable Grady, Laureen Referring Unavailable Fanta Zarate Attending Unavailable Grady, Laureen Primary Care Unavailable Fanta Zarate Attending Unavailable Fanta Zarate Referring Unavailable Downs, Laureen Primary Care Unavailable Juliet Virk Referring Unavailable Downs, Laureen Primary Care Unavailable Juliet Virk Attending Unavailable Allergies Allergy Classification Reported Allergen(s) Allergy Type Date of Onset Reaction(s) Facility (1 source) No Known Medication Allergies; Translations: [No Known Medication Allergies] Propensity to adverse reactions to drug (disorder) [facility] Repository Medications Current Medications [...] by mouth every week ergocalciferol 1.25 MG (27840 UT) capsule Take 50,000 Units by mouth once a week. 0 Active Rgdfxcit-Wst-Fy-Fa () 1 mg Tablet (18 sources) Start: 04-23-2022 take 1 tablet by mouth once daily Start: 04-23-2022 take 1 tablet by soledad th once daily Jhyraifi-Waf-Ns-Fa () 1 mg Tablet Active 1 {tbl} PO DAILY April 23, 2022 12:00am Complies with drug therapy Start: 04-23-2022 take 1 tablet by soledad th once daily Jpltdnty-Yrz-Sq-Fa () 1 mg Tablet Active 1 {tbl} PO DAILY April 23, 2022 12:00am Start: 04-23-2022 take 1 tablet by soledad th once daily Gvbdwuyn-Xhy-Dl-Fa () 1 mg Tablet Active 1 TABLET PO DAILY April 22, 2022 11:00pm Start: 04-23-2022 take 1 tablet by soledad th once daily Qycgjcuh-Ucu-Ky-Fa () 1 mg Tablet Active 1 TABLET [...] 08/21/2018 08/31/2018 cephalexin 500 mg oral tablet (7 sources) Cephalosporin Antibacterial Start: 11-24-2024 End: 12-01-2024 [...] Active Start: 08-21-2018 take 1 capsule by [facility] four times daily cephALEXin (KEFLEX) 500 MG capsule Take 1 (one) capsule (500 mg total) by mouth 4 (four) times a day . 40 capsule 0 08/21/2018 Active cholecalciferol 0.05 mg oral capsule (10 sources) Vitamin D Start: 06-10-2024 End: 05-14-2025 [...] 13, 2024 12:47pm Start: 06-07-2022 End: 01-13-2024 Abreva Discontinued 1 TUBE O THER DAILY June [...] 02/04/2020 Active escitalopram 10 mg oral tablet (15 sources) Serotonin Reuptake Inhibitor Start: 12-16-2024 End: [...] Active ferrous sulfate 325 mg oral tablet (5 sources) Start: 02-24-2024 End: 05-14-2025 take 1 [...] 10 mg metroNIDAZOLE 500 mg oral tablet (9 sources) Nitroimidazole Antimicrobial Start: 12-11-2023 End: 12-18-2023 [...] 08/24/2021 Discontinued ondansetron 4 mg oral tablet (13 sources) Serotonin-3 Receptor Antagonist Start: 06-13-2023 End: [...] Active Problems Problem Classification Problem Date Documented Date Episodic/Chronic Abdominal pain (1 source) Epigastric pain; Translations: [Epigastric pain] Onset: 12-15-2018 Episodic Anxiety disorders (16 sources) Anxiety; Translations: [Anxiety disorder, unspecified] Onset: 02-02-2021 Chronic Comment on above: Stable, No meds Coagulation and hemorrhagic disorders (2 sources) Blood coagulation disorder; 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] Onset: 06-14-2020 06-14-2020 Chronic distress and abnormal forces of labor (1 source) Finding of uterine contractions; Translations: [Other uterine inertia] Episodic Fetopelvic disproportion; obstruction (9 sources) Shoulder girdle dystocia; Translations: [Obstructed labor [...] 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 stable Other complications of (20 sources) Supervision of high risk , unspecified, unspecified trimester; Translations: [Supervision of unspecified high-risk ] Onset: 06-24-2025 06-24-2023 Episodic Other complications of (13 sources) History of shoulder dystocia; Translations: [Supervision of with other poor reproductive or obstetric history, unspecified trimester] 05-14-2025 Episodic Comment on above: 2nd : 7lbs 11oz, last delivery was fine Other complications of (13 sources) H/O: ; Translations: [Supervision of with other poor reproductive or obstetric history, unspecified trimester] 05-27-2025 Episodic Comment on above: growth US 36 Other complications of (1 source) Supervision of with other poor reproductive or obstetric history, unspecified trimester; Translations: [Supervision of with other poor reproductive or obstetric history, unspecified trimester] Onset: 06-23-2025 Episodic Other complications of (2 sources) Anxiety in ; Translations: [Anxiety in , antepartum] Other connective tissue disease (1 source) Ganglion cyst; Translations: [Ganglion cyst] Episodic Other connective tissue disease (3 sources) Ganglion cyst of right wrist; Translations: [Ganglion cyst of wrist, right] Other female genital disorders (1 source) Other specified noninflammatory disorders of vagina; Translations: [Other specified noninflammatory disorders of vagina] Onset: 06-29-2025 Episodic Other infections; including parasitic (1 source) H/O: [...] Translations: [Alopecia] Episodic Other upper respiratory disease (12 sources) Seasonal allergy; Translations: [Other seasonal allergic rhinitis] 06-13-2023 Chronic Other upper respiratory disease (2 sources) Deviated nasal septum; Translations: [Nasal septal deviation] Onset: 08-21-2018 08-21-2018 Episodic Polyhydramnios and other problems of amniotic cavity (11 sources) Oligohydramnios; Translations: [Oligohydramnios, third trimester, not [...] ] Episodic Residual codes; unclassified (1 source) 12 weeks gestation of ; Translations: [12 weeks gestation of ] Onset: 06-23-2025 Episodic Residual codes; unclassified (1 source) 9 [...] of other mental and behavioral disorders] Onset: 06-23-2025 Episodic Thyroid disorders (14 sources) Luis Felipe thyroiditis; Translations: [Autoimmune thyroiditis] Onset: 06-23-2025 05-14-2025 Chronic Comment on above: - self re solved/no tx; Thyroid labs ordered w/NOB Unclassified (6 sources) Patient encounter status; Translations: [Well adult exam] Onset: 08-21-2018 08-21-2018 Unclassified (1 source) Cancer cervix screening status; Translations: [Screening for cervical cancer] Unclassified (1 source) Other specified diseases and conditions complicating ; Translations: [Other specified diseases and conditions complicating ] Onset: 06-23-2025 Past or Other Problems Problem Classification Problem Date Documented Date Episodic/Chronic Contraceptive and procreative management (1 source) Oral contraception; Translations: [Encounter for surveillance of contraceptive pills] Episodic Malaise and fatigue (6 sources) Fatigue; Translations: [Other fatigue] Onset: 12-03-2024 [...] Test Name Value Interpretation Reference Range Facility Illuminator Office Visit Reporton 07-19-2025 Illuminator Office Visit Report [facility] [address], [address] [place] [address] OFFICE VISIT Date of Service: 07/19/25 MR#: [id number] Acct: [id number] Name: NAYELI HERNANDEZ Rep #: [id number] 10 : 1995 Provider: MANINDER berger Age/Sex: 29/F Location: [facility] Status: Signed Intake Vital Signs 05/27/25 14:55 06/23/25 14:14 07/19/25 13:02 Height 5 ft 2 in 5 ft 2 in 5 ft 2 in Weight: 165 lb 5 oz BMI 30.2 BP 124/72 H Intake Visit Reasons: 16wk ob Chairman Of The Board Required: No Is patient in pain?: No Allergies No Known Allergies Allergy (Verified 07/19/25 13:00) Medications ???Medication ???Instructions ???Recorded ???Confirmed ???Type xndqfpsx-uzi-Zb-FA 1 mg 1 tab PO DAILY 04/23/22 07/19/25 History tablet valacyclovir 1 gram tablet 2,000 mg (2 x 1 gram) PO BID PRN 0 03/24/25 07/19/25 Rx (Valtrex) cold sore #4 tabs Last Menstrual Period: 03/20/25 Zika: Zika virus screening: Negative : No PFSH PFSH Medical History History of shoulder dystocia Anxiety depression Seasonal allergies Family history of autistic disorder Surgical History Kelford teeth extracted History of surgery Family History Grandmother Breast cancer, Onset Age: 65 maternal Aunt Breast cancer, Onset Age: 60 Maternal Sister Thyroid disorder Mother Thyroid disorder Hypertension Sister Thyroid disorder Father Hypertension Social History adopted: No household members: spouse and children number of children: 3 current occupational status: employed 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 [employer] current occupational exposures/hazards: No pets and [...] 1-2 times per week duration: 15-30 minutes/day tigre/adventist: Hindu seatbelt use: always do you feel safe at home: Yes additional social history: : Ericka Montalvoer, PT Onboarding Specialist History 4 Elective abortions 0 Hx Para [...] term 7#11oz Female epidural [facility] Dr Lise Burchatt 01/14/24 Merelyn 37 live - full term 6lbs 11oz Female epidural [facility] Ericka Delivery Date: 02/12/21 Last Updated by: Huma Dietrich IOL- failure to progress, head stuck on hip Delivery Date: 06/21/22 Last Updated by: Huma Dietrich IOL-early labor 2 wks, shoulder dystocia Delivery Date: 01/14/24 Last Updated by: Beryl Kamara RN IOL 37 oligo HPI 16wk ob Details: NAYELI HERNANDEZ is a 29 year old who presents for routine OB visit. OB Visit PRANAY Calculator Estimated Delivery Date Method Current WG Current Estimate 01/03/26 Ultrasound #1 16w 0d Other Estimates 12/25/25 LMP (Certain) 17w 2d Expected Delivery Route/Plan Labor Preferences- CB/BF classes: [...] -???-???-???-???-???-?? ?-???-???-???-???-???-? ??- Glucose FHR FuHt Pres Dil (more content not included)... Normal [facility] Genital Culture Comprehensiv jonh 06-26-2025 VAC Reason for Exam: vaginal odor Normal vaginal britney isolated. No yeast, Gardnerella, Neisseria or beta-hemolytic Streptococcus isolated. Normal [facility] Comment on above: Performed By: #### M 100.3200, M100.1999 #### [facility] Laboratory [address] [place], [place], [id number] Genital cultureOrdered By: Kar Zarate on 06-23-2025 Source specific culture Neisseria or beta-hemolytic Streptococcus isolated. [facility] Gram Stainon 06-23-2025 GS Reason for Exam: vaginal odor Gram Stain 3+ Gram positive rods 2+ Gram variable anu No Gram negative diplococci Score = 3 Interpretation: 0-3 Normal, 4-6 Intermediate, 7-10 Positive BV Normal [facility] Comment on above: Performed By: #### M 100.3200, M100.1999 #### [facility] [address] [place], [place], [address] Gram stainOrdered By: Fanta Zarate on 06-23-2025 Microscopic observation Gram stain Nom (Unsp spec) [facility] [id number] 06-23-2025 [facility] Misc. COMMENT Normal . [facility] Comment on above: Order Comment: [id number] 8TSH R AB SERUM FRZ Result Comment: Test Ordered: [id number] TSH Receptor Antibody (TBII) TSH Receptor Antibody (TBII) 0.7 U/L ES Reference Range: . Reference Range: Antibody Titer: <1.0 U/L = Negative 1.1 - 1.5 U/L = Equivocal >1.5 U/L = Positive Performed at: ES - [facility] [address] [place], [place] [id number] Glassblower: Isrrael Grajeda MD, Phone: [phone] Performed at: - [facility] [address] [place], [place] [id number] Glassblower: Federico Tavarez PhD, Phone: [phone] Performed By: #### L 3890.6102, L3890.6301, L100.0100, L3300.6900, L509.4006, L3890.6006, L509.8002, L506.0400, L501.9520, BTS, L3410.9992 ####[facility] [address] [place], [place], [address] Laboratory - Chemistry and C hemistry - challengeOrdered By: Fanta Zarate on 06-23-2025 Glucose Ql (U) Negative [facility] Laboratory - UrinalysisOrder ed By: Fanta Zarate on 06-23-2025 Protein Ql (U) Negative [facility] Illuminator Office Visit Reporton 06-23-2025 Illuminator Office Visit Report [facility] [address], [address] [place] [address] OFFICE VISIT Date of Service: 06/23/25 MR#: [id number] Acct: [id number] Name: NAYELI HERNANDEZ Rep #: [id number] 07 : 1995 Provider: Dr. Fanta mckee MD Age/Sex: 29/F Location: [facility] Status: Signed Intake Vital Signs 04/27/25 14:36 05/27/25 14:55 06/23/25 14:14 Height 5 ft 2 in 5 ft 2 in 5 ft 2 in Weight: 163 lb 8 oz BMI 29.9 BP 113/75 Intake Visit Reasons: 12wk ob Chairman Of The Board Required: No Is patient in pain?: No Allergies No Known Allergies Allergy (Verified 06/23/25 14:14) Medications ???Medication ???Instructions ???Recorded ???Confirmed ???Type mgncotll-gks-Pw-FA 1 mg 1 tab PO DAILY 04/23/22 06/23/25 History tablet valacyclovir 1 gram tablet 2,000 mg (2 x 1 gram) PO BID PRN 0 03/24/25 06/23/25 Rx (Valtrex) cold sore #4 tabs Last Menstrual Period: 03/20/25 Zika: Zika virus screening: Negative : No PFSH PFSH Medical History History of shoulder dystocia Anxiety depression Seasonal allergies Family history of autistic disorder Surgical History Kelford teeth extracted History of surgery Family History Grandmother Breast cancer, Onset Age: 65 maternal Aunt Breast cancer, Onset Age: 60 Maternal Sister Thyroid disorder Mother Thyroid disorder Hypertension Sister Thyroid disorder Father Hypertension Social History adopted: No household members: spouse and children number of children: 3 current occupational status: employed 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 ?-???-???-???-???-???-? ??- Glucose FHR FuHt Pres Dilation (more content not included)... Normal [facility] Thyroid Peroxidase ABon 06-07 THYR PEROX AB 16 IU/mL Normal 0-34 [facility] Comment on above: Result Comment: Perf ormed at: [facility] [address] [id number] Glassblower: Federico Tavarez PhD, Phone: [phone] Performed By: #### L 3890.6102, L3890.6301, L100.0100, L3300.6900, L509.4006, L3890.6006, L509.8002, L506.0400, L501.9520, BTS, L3410.9992 ####[facility] [address] [place], [address] Absolute lymphocyte countOrd ered By: Juliet Virk on 06-16-2025 Lymphocytes Auto (Unsp spec) [#/Vol] 2.33 10*3/uL 0.83-4.51 [facility] Absolute neutrophil countOrd ered By: Juliet Virk on 06-16-2025 Neutrophils (Bld) [#/Vol] 6.1 10*3/uL 2.0-7.7 [facility] Automated lymphocyte count a s percentage of total leukocytesOrdered By: Juliet Virk on 06-16-2025 Lymphocytes/100 WBC Auto (Unsp spec) 25.4 % 19-41 [facility] Basophil percentageOrdered B y: Juliet Virk on 06-16-2025 Basophils/100 WBC (Bld) 0.4 % 0-1 [facility] CBC W/Diff, Automatedon 06-07-2024 Absolute Lymph 2.33 X10 3/uL Normal 0.83-4.51 [facility] Comment on above: Performed By: #### L 3890.6102, L3890.6301, L100.0100, L3300.6900, L509.4006, L3890.6006, L509.8002, L506.0400, L501.9520, BTS, L3410.9992 #### [facility] [address] [place], [address] Absolute Neut 6.1 X10 3/uL Normal 2.0-7.7 [facility] Comment on above: Performed By: #### L 3890.6102, L3890.6301, L100.0100, L3300.6900, L509.4006, L3890.6006, L509.8002, L506.0400, L501.9520, BTS, L3410.9992 #### [facility] [address] [place], [address] Basophils/100 WBC (Bld) 0.4 % Normal 0-1 [facility] Comment on above: Performed By: #### L 3890.6102, L3890.6301, L100.0100, L3300.6900, L509.4006, L3890.6006, L509.8002, L506.0400, L501.9520, BTS, L3410.9992 #### [facility] [address] [place], [address] Eosinophils/100 WBC (Bld) 2.0 % Normal 0-5 [facility] Comment on above: Performed By: #### L 3890.6102, L3890.6301, L100.0100, L3300.6900, L509.4006, L3890.6006, L509.8002, L506.0400, L501.9520, BTS, L3410.9992 #### [facility] [address] [place], [address] Erythrocyte distribution width (RBC) [Ratio] 12.6 % Normal 11.6-14.6 [facility] Comment on above: Performed By: #### L 3890.6102, L3890.6301, L100.0100, L3300.6900, L509.4006, L3890.6006, L509.8002, L506.0400, L501.9520, BTS, L3410.9992 #### [facility] [address] [place], [address] Hematocrit (Bld) [Volume fraction] 37.6 % Normal 37-47 [facility] Comment on above: Performed By: #### L 3890.6102, L3890.6301, L100.0100, L3300.6900, L509.4006, L3890.6006, L509.8002, L506.0400, L501.9520, BTS, L3410.9992 #### [facility] [address] [place], [address] Hemoglobin (Bld) [Mass/Vol] 12.9 g/dL Normal 12.0-15.0 [facility] Comment on above: Performed By: #### L 3890.6102, L3890.6301, L100.0100, L3300.6900, L509.4006, L3890.6006, L509.8002, L506.0400, L501.9520, BTS, L3410.9992 #### [facility] [address] [place], [address] IG% 0.300 Normal 0.0-0.9 [facility] Comment on above: Result Comment: IG% - Immature Granulocytes (promyelocytes, myelocytes and metamyelocytes) > 1% indicates that a LEFT SHIFT is Present. Performed By: #### L 3890.6102, L3890.6301, L100.0100, L3300.6900, L509.4006, L3890.6006, L509.8002, L506.0400, L501.9520, BTS, L3410.9992 #### [facility] [address] [place], [address] Lymphocytes/100 WBC (Bld) 25.4 % Normal 19-41 [facility] Comment on above: Performed By: #### L 3890.6102, L3890.6301, L100.0100, L3300.6900, L509.4006, L3890.6006, L509.8002, L506.0400, L501.9520, BTS, L3410.9992 #### [facility] [address] [place], [address] MCH (RBC) [Entitic mass] 29.4 pg Normal 27.0-32.0 [facility] Comment on above: Performed By: #### L 3890.6102, L3890.6301, L100.0100, L3300.6900, L509.4006, L3890.6006, L509.8002, L506.0400, L501.9520, BTS, L3410.9992 #### [facility] [address] [place], [address] MCHC (RBC) [Mass/Vol] 34.3 g/dL Normal 32-36 [facility] Comment on above: Performed By: #### L 3890.6102, L3890.6301, L100.0100, L3300.6900, L509.4006, L3890.6006, L509.8002, L506.0400, L501.9520, BTS, L3410.9992 #### [facility] [address] [place], [address] MCV (RBC) [Entitic vol] 85.6 fL Normal 81-99 [facility] Comment on above: Performed By: #### L 3890.6102, L3890.6301, L100.0100, L3300.6900, L509.4006, L3890.6006, L509.8002, L506.0400, L501.9520, BTS, L3410.9992 #### [facility] [address] [place], [address] Monocytes/100 WBC (Bld) 5.7 % Normal 0-10 [facility] Comment on above: Performed By: #### L 3890.6102, L3890.6301, L100.0100, L3300.6900, L509.4006, L3890.6006, L509.8002, L506.0400, L501.9520, BTS, L3410.9992 #### [facility] [address] [place], [address] Neutrophils/100 WBC (Bld) 66.2 % Normal 47-70 [facility] Comment on above: Performed By: #### L 3890.6102, L3890.6301, L100.0100, L3300.6900, L509.4006, L3890.6006, L509.8002, L506.0400, L501.9520, BTS, L3410.9992 #### [facility] [address] [place], [address] Nucleated RBC (Bld) [#/Vol] 0 10*3/uL Normal 0-5 [facility] Comment on above: Performed By: #### L 3890.6102, L3890.6301, L100.0100, L3300.6900, L509.4006, L3890.6006, L509.8002, L506.0400, L501.9520, BTS, L3410.9992 #### [facility] [address] [place], [address] Platelet mean volume (Bld) [Entitic vol] 10.9 fL Normal 6.2-12.0 [facility] Comment on above: Performed By: #### L 3890.6102, L3890.6301, L100.0100, L3300.6900, L509.4006, L3890.6006, L509.8002, L506.0400, L501.9520, BTS, L3410.9992 #### [facility] [address] [place], [address] Platelets (Bld) [#/Vol] 213 10*3/uL Normal 150-450 [facility] Comment on above: Performed By: #### L 3890.6102, L3890.6301, L100.0100, L3300.6900, L509.4006, L3890.6006, L509.8002, L506.0400, L501.9520, BTS, L3410.9992 #### [facility] Laboratory [address] [place], [place], [id number] (374) RBC (Bld) [#/Vol] 4.39 10*6/uL Normal 4.2-5.4 [facility] Comment on above: Performed By: #### L 3890.6102, L3890.6301, L100.0100, L3300.6900, L509.4006, L3890.6006, L509.8002, L506.0400, L501.9520, BTS, L3410.9992 #### [facility] [address] [place], [address] (401) RDW SD 39.2 fl Normal 35.1-43.9 [facility] Comment on above: Performed By: #### L 3890.6102, L3890.6301, L100.0100, L3300.6900, L509.4006, L3890.6006, L509.8002, L506.0400, L501.9520, BTS, L3410.9992 #### [facility] [address] [place], [address] WBC (Bld) [#/Vol] 9.2 10*3/uL Normal 4.4-11.0 [facility] Comment on above: Performed By: #### L 3890.6102, L3890.6301, L100.0100, L3300.6900, L509.4006, L3890.6006, L509.8002, L506.0400, L501.9520, BTS, L3410.9992 #### [facility] [address] [place], [place], [id number] Eosinophil percentageOrdered By: Juliet Virk on 06-16-2025 Eosinophils/100 WBC (Bld) 2.0 % 0-5 [facility] Erythrocyte distribution wid th ratioOrdered By: Juliet Virk on 06-16-2025 Erythrocyte distribution width (RBC) [Ratio] 12.6 % 11.6-14.6 [facility] Erythrocyte distribution wid th standard deviationOrdered By: Juliet Virk on 06-16-2025 Erythrocyte distribution width (RBC) [Ratio] 39.2 fl 35.1-43.9 [facility] HIVon 06-16-2025 HIV Non-Reactive Normal Nonreactive [facility] Comment on above: Result Comment: Non- Reactive Reactive Repeatedly reactive samples must be confirmed according to CDC recommended confirmatory algorithms. The subresults for either HIVAG or AHIV can be used as an aid in the selection of the confirmation algorithm for reactive samples. Send out specimens with Reactive results to [facility] for confirmation. Order the HIV antibody detection and differentiation: #[id number] Performed By: #### L 3890.6102, L3890.6301, L100.0100, L3300.6900, L509.4006, L3890.6006, L509.8002, L506.0400, L501.9520, BTS, L3410.9992 ####[facility] [address] [place], [place], [id number] Hematocrit Auto (Bld) [Volum e fraction]Ordered By: Juliet Virk on 06-16-2025 Hematocrit (Bld) [Volume fraction] 37.6 % 37-47 [facility] Hemoglobin measurementOrdere d By: Juliet Virk on 06-16-2025 Hemoglobin (Bld) [Mass/Vol] 12.9 g/dL 12.0-15.0 [facility] Hepatitis C Antibodyon 06-16 Hepatitis C Ab Non-Reactive Normal Nonreactive [facility] Comment on above: Result Comment: Reac tive: Presumptive evidence of antibodies to HCV. Follow CDC recommendations for supplemental testing. Non-Reactive: Antibodies to HCV were not detected; does not exclude the possibility of exposure to HCV Reactive Results are presumptive evidence of antibodies to HCV. Follow CDC recommendations for supplemental testing. Order confirmation testing: HCV Quant by PCR testing - HCVPCR #[id number] Non Reactive: < 0.8 Equivocal: >/= 0.8 to < 1.0 Reactive: >/= 1.0 The CDC requires that a reactive/equivocal HCV antibody result be sent out for confirmation. HCV Quant by PCR testing. Performed By: #### L 3890.6102, L3890.6301, L100.0100, L3300.6900, L509.4006, L3890.6006, L509.8002, L506.0400, L501.9520, BTS, L3410.9992 ####[facility] [address] [facility]. [place], [place], [phone] Immature granulocytes/100 WB C Auto (Bld)Ordered By: Juliet Virk on 06-16-2025 Immature granulocytes/100 WBC (Bld) 0.300 % 0.0-0.9 [facility] Comment on above: IG% - Immature Granu locytes (promyelocytes, myelocytes and metamyelocytes) > 1% indicates that a LEFT SHIFT is Present. L3890.6102on 06-16-2025 HEP B Surf Ag Non-Reactive Normal Nonreactive [facility] Comment on above: Result Comment: Reac tive: Presumptive evidence of HBV. Repeatedly reactive samples must be confirmed using a neutralization test ([employer] HBsAg Confirmatory Test) Non-Reactive: HBsAg not detected; does not exclude the possibility of exposure to HBV Performed By: #### L 3890.6102, L3890.6301, L100.0100, L3300.6900, L509.4006, L3890.6006, L509.8002, L506.0400, L501.9520, BTS, L3410.9992 ####[facility] [address] [facility]. [place], [place], [id number] L509.4006on 06-16-2025 Rubella IgG REAC Normal Nonreactive [facility] Comment on above: Result Comment: Anti body Result: Interpretation Non-Reactive: Non-Immune Reactive: Immune The following results were obtained with the [employer] Rubella IgG assay. Results from assays of other manufacturers cannot be used interchangeably. Performed By: #### L 3890.6102, L3890.6301, L100.0100, L3300.6900, L509.4006, L3890.6006, L509.8002, L506.0400, L501.9520, BTS, L3410.9992 ####[facility] [address] [place], [address] Laboratory - Microbiology an d Antimicrobial susceptibilityOrdered By: Juliet Virk on 06-16-2025 HBV surface Ag Ql (S) Non-Reactive Nonreactive [facility] Comment on above: Reactive: Presumptiv e evidence of HBV. Repeatedly reactive samples must be confirmed using a neutralization test ([employer] HBsAg Confirmatory Test)Non-Reactive: HBsAg not detected; does not exclude the possibility of exposure to HBV MCV (mean corpuscular volume ) determinationOrdered By: Juliet Virk on 06-16-2025 MCV (RBC) [Entitic vol] 85.6 fL 81-99 [facility] Mean corpuscular hemoglobin (MCH) determinationOrdered By: Juliet Virk on 06-16-2025 MCH (RBC) [Entitic mass] 29.4 pg 27.0-32.0 [facility] Mean corpuscular hemoglobin concentration (MCHC) determinationOrdered By: Juliet Virk on 06-16-2025 MCHC (RBC) [Mass/Vol] 34.3 g/dL 32-36 [facility] Mean platelet volume determi nationOrdered By: Juliet Virk on 06-16-2025 Platelet mean volume (Bld) [Entitic vol] 10.9 fL 6.2-12.0 [facility] Monocyte percentageOrdered B y: Juliet Virk on 06-16-2025 Monocytes/100 WBC (Bld) 5.7 % 0-10 [facility] Neutrophil percentageOrdered By: Juliet Virk on 06-16-2025 Neutrophils/100 WBC (Bld) 66.2 % 47-70 [facility] No Panel InformationOrdered By: Juliet Virk on 06-16-2025 HIV (1&2) Antibody Non-Reactive Nonreactive [facility] Comment on above: Non-ReactiveReactive Repeatedly reactive samples must be confirmed according to CDC recommended confirmatory algorithms. The subresults for either HIVAG or AHIV can be used as an aid in the selection of the confirmation algorithm for reactive samples.Send out specimens with Reactive results to [facility] for confirmation.Order the HIV antibody detection and differentiation: #[id number] Nucleated red blood cell per centageOrdered By: Juliet Virk on 06-16-2025 Nucleated RBC/100 WBC (Bld) [Ratio] 0 % 0-5 [facility] Platelet countOrdered By: Og Virk on 06-16-2025 Platelets (Bld) [#/Vol] 213 10*3/uL 150-450 [facility] RBC Auto (Bld) [#/Vol]Ordere d By: Juliet Virk on 06-16-2025 RBC (Bld) [#/Vol] 4.39 10*6/uL 4.2-5.4 [facility] Serum or plasma thyroperoxid ase antibody assay (units/volume)Ordered By: Juliet Virk on 06-16-2025 TPO Ab Qn 16 [IU]/mL 0-34 [facility] Comment on above: Performed at: [place] [id number] Director: Federico Tavarez PhD, Phone: [phone] Syphilis Antibodieson 2024 Syphilis Abs Non-Reactive Normal Nonreactive [facility] Comment on above: Performed By: #### L 3890.6102, L3890.6301, L100.0100, L3300.6900, L509.4006, L3890.6006, L509.8002, L506.0400, L501.9520, BTS, L3410.9992 ####[facility] [address] [place], [address] T4 Free Directon 06-16-2025 T4 FREE DIRECT 1.10 ng/dL Normal 0.76-1.46 [facility] Comment on above: Performed By: #### L 3890.6102, L3890.6301, L100.0100, L3300.6900, L509.4006, L3890.6006, L509.8002, L506.0400, L501.9520, BTS, L3410.9992 #### [facility] [address] [place], [address] T4 freeOrdered By: Juliet adams on 06-16-2025 Free T4 [Mass/Vol] 1.10 ng/dL 0.76-1.46 [facility] TSH DL <= 0.005 mIU/L QnOrde red By: Juliet Virk on 06-16-2025 TSH Qn 1.460 uIU/mL 0.300-4.200 [facility] Thyroid Stim Hormone (TSH)on 06-16-2025 TSH 1.460 uIU/mL Normal 0.300-4.200 [facility] Comment on above: Performed By: #### L 3890.6102, L3890.6301, L100.0100, L3300.6900, L509.4006, L3890.6006, L509.8002, L506.0400, L501.9520, BTS, L3410.9992 #### [facility] [address] [place], [address] Type AND Screenon 06-16-2025 Ab SCREEN GEL Negative Normal [facility] Comment on above: Order Comment: PN Performed By: #### L 3890.6102, L3890.6301, L100.0100, L3300.6900, L509.4006, L3890.6006, L509.8002, L506.0400, L501.9520, BTS, L3410.9992 ####[facility] [address] [facility] [place], [address] White blood cell (WBC) count Ordered By: Juliet Virk on 06-16-2025 WBC (Bld) [#/Vol] 9.2 10*3/uL 4.4-11.0 [facility] Chlamydia/GC JIMMY aptimaon CHLAMY,NUC ACID Negative Normal Negative [facility] Comment on above: Performed By: #### L 7000.1800, M100.2200 #### [facility] Laboratory [address] [place], [address] GC BY NUC ACID Negative Normal Negative [facility] Comment on above: Result Comment: Perf ormed at: =G - [facility] [place] [address] [place], [place] [id number] Glassblower: Leta Holt MD, Phone: [phone] Performed By: #### L 7000.1800, M100.2200 #### [facility] [address] [place], [address] Urine Cultureon 05-28-2025 URC Culture exhibits no growth. Normal [facility] Comment on above: Performed By: #### L 7000.1800, M100.2200 #### [facility] [address] [place], [address] Chlamydia trachomatis rRNA d etection by probe and target amplification methodOrdered By: Juliet Virk on 05-27-2025 C. trachomatis rRNA JIMMY+probe Ql (Unsp spec) Negative Negative [facility] Neisseria gonorrhoeae nuclei c acid detection by amplified probe techniqueOrdered By: Juliet Virk on 05-27-2025 N. gonorrhoeae DNA JIMMY+probe Ql (Unsp spec) Negative Negative [facility] Comment on above: Performed at: [facility] [address] [id number] Director: Leta Holt MD, Phone: [phone] Illuminator Office Visit Reporton 05-27-2025 Illuminator Office Visit Report [facility] [address], [address] [place] [address] OFFICE VISIT Date of Service: 05/27/25 MR#: [id number] Acct: [id number] Name: NAYELI HERNANDEZ Rep #: [id number] : 1995 Provider: CNM Juliet Willi ams Age/Sex: 29/F Location: [facility] Status: Signed Intake Vital Signs 11/18/24 08:47 04/27/25 14:36 05/27/25 14:55 Height 5 ft 2 in 5 ft 2 in 5 ft 2 in Weight: 164 lb BMI 29.9 BP 106/71 Intake Visit Reasons: *EST* NOB LMP 03/20, PRANAY 12/25 Chief Complaint: New OB Chairman Of The Board Required: No Is patient in pain?: No Allergies No Known Allergies Allergy (Verified 05/27/25 14:54) Medications ???Medication ???Instructions ???Recorded ???Confirmed ???Type ntzgihll-czv-Je-FA 1 mg 1 tab PO DAILY 04/23/22 05/27/25 History tablet valacyclovir 1 gram tablet 2,000 mg (2 x 1 gram) PO BID PRN 0 03/24/25 05/27/25 Rx (Valtrex) cold sore #4 tabs Last Menstrual Period: 03/20/25 PFSH PFSH Medical History History of shoulder dystocia Anxiety depression Seasonal allergies Family history of autistic disorder Surgical History [place] teeth extracted History of surgery Family History Grandmother Breast cancer, Onset Age: 65 maternal Aunt Breast cancer, Onset Age: 60 Maternal Sister Thyroid disorder Mother Thyroid disorder Hypertension Sister Thyroid disorder Father Hypertension Social History adopted: No household members: spouse and children number of children: 3 current occupational status: employed 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 Normal [facility] Urine cultureOrdered By: Doni Virk on 05-27-2025 Bacteria identified Cx Nom (U) Culture exhibits no growth. [facility] Antinuclear Antibody, IFAon 11-23-2024 EUNICE, IFA Negative Normal . [facility] Comment on above: Result Comment: Nega tive <1:80 Borderline 1:80 Positive >1:80 ICAP nomenclature: AC-0 For more information about Hep-2 cell patterns use ANApatterns.org, the official website for the International Consensus on Antinuclear Antibody (EUNICE) Patterns (ICAP). Performed at: [address] [id number] Glassblower: Federico Tavarez PhD, Phone: [phone] Performed By: #### L 500.4050, L3100.7950, L100.0100, L506.1000 ####[facility] [address] [place], [place], [id number] CBC W/Diff, Automatedon 11-07 Absolute Lymph 2.13 X10 3/uL Normal 0.83-4.51 [facility] Comment on above: Performed By: #### L 500.4050, L3100.7950, L100.0100, L506.1000 ####[facility] [address] [place], [place], [id number] Absolute Neut 3.0 X10 3/uL Normal 2.0-7.7 [facility] Comment on above: Performed By: #### L 500.4050, L3100.7950, L100.0100, L506.1000 ####[facility] [address] [place], [address] Basophils/100 WBC (Bld) 0.5 % Normal 0-1 [facility] Comment on above: Performed By: #### L 500.4050, L3100.7950, L100.0100, L506.1000 ####[facility] [address] [place], [address] Eosinophils/100 WBC (Bld) 2.5 % Normal 0-5 [facility] Comment on above: Performed By: #### L 500.4050, L3100.7950, L100.0100, L506.1000 ####[facility] [address] [place], [address] Erythrocyte distribution width (RBC) [Ratio] 12.5 % Normal 11.6-14.6 [facility] Comment on above: Performed By: #### L 500.4050, L3100.7950, L100.0100, L506.1000 ####[facility] [address] [place], [address] Hematocrit (Bld) [Volume fraction] 39.5 % Normal 37-47 [facility] Comment on above: Performed By: #### L 500.4050, L3100.7950, L100.0100, L506.1000 ####[facility] [address] [place], [address] Hemoglobin (Bld) [Mass/Vol] 12.7 g/dL Normal 12.0-15.0 [facility] Comment on above: Performed By: #### L 500.4050, L3100.7950, L100.0100, L506.1000 ####[facility] [address] [place], [address] IG% 0.200 Normal 0.0-0.9 [facility] Comment on above: Result Comment: IG% - Immature Granulocytes (promyelocytes, myelocytes and metamyelocytes) > 1% indicates that a LEFT SHIFT is Present. Performed By: #### L 500.4050, L3100.7950, L100.0100, L506.1000 ####[facility] [address] [place], [address] Lymphocytes/100 WBC (Bld) 37.7 % Normal 19-41 [facility] Comment on above: Performed By: #### L 500.4050, L3100.7950, L100.0100, L506.1000 ####[facility] [address] [place], [address] MCH (RBC) [Entitic mass] 28.5 pg Normal 27.0-32.0 [facility] Comment on above: Performed By: #### L 500.4050, L3100.7950, L100.0100, L506.1000 ####[facility] [address] [place], [address] MCHC (RBC) [Mass/Vol] 32.2 g/dL Normal 32-36 [facility] Comment on above: Performed By: #### L 500.4050, L3100.7950, L100.0100, L506.1000 ####[facility] [address] [place], [address] MCV (RBC) [Entitic vol] 88.6 fL Normal 81-99 [facility] Comment on above: Performed By: #### L 500.4050, L3100.7950, L100.0100, L506.1000 ####[facility] [address] [place], [address] Monocytes/100 WBC (Bld) 6.5 % Normal 0-10 [facility] Comment on above: Performed By: #### L 500.4050, L3100.7950, L100.0100, L506.1000 ####[facility] [address] [place], [address] Neutrophils/100 WBC (Bld) 52.6 % Normal 47-70 [facility] Comment on above: Performed By: #### L 500.4050, L3100.7950, L100.0100, L506.1000 ####[facility] [address] [place], [address] Nucleated RBC (Bld) [#/Vol] 0 10*3/uL Normal 0-5 [facility] Comment on above: Performed By: #### L 500.4050, L3100.7950, L100.0100, L506.1000 ####[facility] [address] [place], [address] Platelet mean volume (Bld) [Entitic vol] 11.0 fL Normal 6.2-12.0 [facility] Comment on above: Performed By: #### L 500.4050, L3100.7950, L100.0100, L506.1000 ####[facility] [address] [place], [address] Platelets (Bld) [#/Vol] 215 10*3/uL Normal 150-450 [facility] Comment on above: Performed By: #### L 500.4050, L3100.7950, L100.0100, L506.1000 ####[facility] [address] [place], [address] RBC (Bld) [#/Vol] 4.46 10*6/uL Normal 4.2-5.4 [facility] Comment on above: Performed By: #### L 500.4050, L3100.7950, L100.0100, L506.1000 ####[facility] [address] [place], [address] RDW SD 40.5 fl Normal 35.1-43.9 [facility] Comment on above: Performed By: #### L 500.4050, L3100.7950, L100.0100, L506.1000 ####[facility] [address] [place], [address] WBC (Bld) [#/Vol] 5.7 10*3/uL Normal 4.4-11.0 [facility] Comment on above: Performed By: #### L 500.4050, L3100.7950, L100.0100, L506.1000 ####[facility] [address] [place], [address] Comprehensive Metabolic Prof ilon 11-18-2024 Albumin [Mass/Vol] 3.9 g/dL Normal 3.2-5.0 [facility] Comment on above: Performed By: #### L 500.4050, L3100.7950, L100.0100, L506.1000 ####[facility] [address] [place], [address] Albumin/Globulin [Mass ratio] 1.1 {ratio} Normal 0.9-2.4 [facility] Comment on above: Performed By: #### L 500.4050, L3100.7950, L100.0100, L506.1000 ####[facility] [address] [place], [address] ALK P 78 U/L Normal 45-117 [facility] Comment on above: Performed By: #### L 500.4050, L3100.7950, L100.0100, L506.1000 ####[facility] [address] [place], [address] ALT [Catalytic activity/Vol] 24 U/L Normal 13-56 [facility] Comment on above: Performed By: #### L 500.4050, L3100.7950, L100.0100, L506.1000 ####[facility] [address] [place], [address] AST [Catalytic activity/Vol] 10 U/L Low 15-37 [facility] Comment on above: Performed By: #### L 500.4050, L3100.7950, L100.0100, L506.1000 ####[facility] [address] [place], [address] Bilirubin [Mass/Vol] 0.40 mg/dL Normal 0.20-1.00 [facility] Comment on above: Result Comment: For patients on eltrombopag therapy, use of Dimension [place] TBIL is not recommended. Performed By: #### L 500.4050, L3100.7950, L100.0100, L506.1000 ####[facility] [address] [place], [address] BUN/CRE 17.6 RATIO Normal 10-20 [facility] Comment on above: Performed By: #### L 500.4050, L3100.7950, L100.0100, L506.1000 ####[facility] [address] [place], [address] CA,Total 9.5 mg/dL Normal 8.5-10.1 [facility] Comment on above: Performed By: #### L 500.4050, L3100.7950, L100.0100, L506.1000 ####[facility] [address] [place], [address] Chloride [Moles/Vol] 107 mmol/L Normal 98-107 [facility] Comment on above: Performed By: #### L 500.4050, L3100.7950, L100.0100, L506.1000 ####[facility] [address] [place], [address] CO2 [Moles/Vol] 29.0 mmol/L Normal 21.0-32.0 [facility] Comment on above: Performed By: #### L 500.4050, L3100.7950, L100.0100, L506.1000 ####[facility] [address] [place], [address] Creatinine [Mass/Vol] 0.68 mg/dL Normal 0.55-1.02 [facility] Comment on above: Result Comment: The validity of the calculated GFR GFRAA in patients over 70 years has not been determined. Clinical correlation is essential. Performed By: #### L 500.4050, L3100.7950, L100.0100, L506.1000 ####[facility] [address] [place], [address] EST GFR - AA 133 mL/min Normal >60 [facility] Comment on above: Result Comment: Afri can Guinean GFR Calc Performed By: #### L 500.4050, L3100.7950, L100.0100, L506.1000 ####[facility] [address] [place], [address] GAP 5 Normal 5-15 [facility] Comment on above: Performed By: #### L 500.4050, L3100.7950, L100.0100, L506.1000 ####[facility] [address] [place], [address] GFR/1.73 sq M.predicted among non-blacks MDRD (S/P/Bld) [Vol rate/Area] 110 mL/min/{1.73_m2} Normal >60 [facility] Comment on above: Result Comment: Non- GFR Calc Performed By: #### L 500.4050, L3100.7950, L100.0100, L506.1000 ####[facility] [address] [place], [address] Globulin (S) [Mass/Vol] 3.6 g/dL Normal 2.2-4.2 [facility] Comment on above: Performed By: #### L 500.4050, L3100.7950, L100.0100, L506.1000 ####[facility] [address] [place], [address] Glucose [Mass/Vol] 82 mg/dL Normal 74-106 [facility] Comment on above: Performed By: #### L 500.4050, L3100.7950, L100.0100, L506.1000 ####[facility] [address] [place], [address] Potassium [Moles/Vol] 3.6 mmol/L Normal 3.5-5.1 [facility] Comment on above: Performed By: #### L 500.4050, L3100.7950, L100.0100, L506.1000 ####[facility] [address] [place], [address] Sodium [Moles/Vol] 141 mmol/L Normal 136-145 [facility] Comment on above: Performed By: #### L 500.4050, L3100.7950, L100.0100, L506.1000 ####[facility] [address] [place], [address] T PROT 7.5 g/dL Normal 6.4-8.2 [facility] Comment on above: Performed By: #### L 500.4050, L3100.7950, L100.0100, L506.1000 ####[facility] [address] [place], [address] Urea nitrogen [Mass/Vol] 12 mg/dL Normal 7-18 [facility] Comment on above: Performed By: #### L 500.4050, L3100.7950, L100.0100, L506.1000 ####[facility] [address] [place], [address] Vitamin D,25 Hydroxyon 11-18 Vitamin D 25-OH 20.8 ng/mL Normal [facility] Comment on above: Result Comment: Karina min D 25(OH) Status Range Deficiency <20 ng/mL (50nmol/L) Insufficiency 20 - 30 ng/mL (50 - 75 nmol/L) Sufficiency 30 - 100 ng/mL (75 - 250 nmol/L) Toxicity >100 ng/mL (>250 nmol/L) Performed By: #### L 500.4050, L3100.7950, L100.0100, L506.1000 ####[facility] [address] [place], [address] Internal Medicine Office Vis iton 11-17-2024 Internal Medicine Office Visit [facility] [address] [place] [address] [place] [address] OFFICE VISIT Date of Service: 11/18/24 MR#: [id number] Acct: [id number] Name: NAYELI HERNANDEZ Rep #: [id number] : 1995 Provider: Dr. Laureen gomez MD Age/Sex: 29/F Location: [facility] Status: Signed Intake Vital Signs 02/24/24 10:57 [...] PT Chief Complaint: establishing needs medication refills Chairman Of The Board Required: No Accompanied by: Self Is patient in pain?: No Allergies No Known Allergies Allergy (Verified 11/18/24 08:45) Medications ???Medication ???Instructions ???Recorded ???Confirmed ???Type zxwukuvt-qpo-Vi-[id number] 1 mg 1 tab PO DAILY 04/23/22 [...] past year?: No Nurse's Note: leaving for [facility] next month asking if there is anything she needs to do before leaving [facility] etc?? 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 Normal [facility] Progress Noteon 04-22-2024 Blending Technician Authentication Interface Message Text Assessment Patient: Nayeli Scott Mary Chief Complaint: Latch Difficulties Difficulty of mother [...] but sometimes both breasts. 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 Usually one pump overnight yields 8oz or so. She does not have any pain with nursing, even at the beginning after . No pain with pumping either. Gissel was born at [place] at 37+4 weeks, IOL for oligo. Otherwise [...] feed Exam: Nipple exam pre-feed: - Right: Ardoch and everted - Left: Ardoch and everted Nipple exam post-feed: N/a did not feed Breast exam: - Right: normal shape, tissue extends to sternum, no erythema or edema, no mass - Left: normal shape, tissue extends to sternum, no erythema or edema, no mass Normal [facility] Absolute lymphocyte countOrd ered By: Radha Villalobos on 01-13-2024 Lymphocytes Auto (Unsp spec) [#/Vol] 1.61 10*3/uL 0.83-4.51 [facility] Automated lymphocyte count a s percentage of total leukocytesOrdered By: Radha Villalobos on 01-13-2024 Lymphocytes/100 WBC Auto (Unsp spec) 20.4 % 19-41 [facility] Basophil percentageOrdered B y: Radha Villalobos on 01-13-2024 Basophils/100 WBC (Bld) 0.3 % 0-1 [facility] Eosinophils/100 WBC (Bld) 1.0 % 0-5 [facility] Hemoglobin (Bld) [Mass/Vol] 11.4 g/dL 12.0-15.0 [facility] Monocytes/100 WBC (Bld) 5.2 % 0-10 [facility] Neutrophils (Bld) [#/Vol] 5.8 10*3/uL 2.0-7.7 [facility] Neutrophils/100 WBC (Bld) 72.7 % 47-70 [facility] WBC (Bld) [#/Vol] 7.9 10*3/uL 4.4-11.0 [facility] Determination of erythrocyte mean corpuscular volume (MCV)Ordered By: Radha Villalobos on 01-13-2024 MCV (RBC) [Entitic vol] 87.3 fL 81-99 [facility] Erythrocyte distribution wid th ratioOrdered By: Radha Villalobos on 01-13-2024 Erythrocyte distribution width (RBC) [Ratio] 14.3 % 11.6-14.6 [facility] Erythrocyte distribution wid th standard deviationOrdered By: Rahda Villalobos on 01-13-2024 Erythrocyte distribution width (RBC) [Entitic vol] 45.1 fL 35.1-43.9 [facility] Hematocrit Auto (Bld) [Volum e fraction]Ordered By: Radha Villalobos on 01-13-2024 Hematocrit (Bld) [Volume fraction] 34.3 % 37-47 [facility] Immature granulocytes/100 WB C Auto (Bld)Ordered By: Radha Villalobos on 01-13-2024 Immature granulocytes/100 WBC (Bld) 0.400 % 0.0-0.9 [facility] Comment on above: IG% - Immature Granu locytes (promyelocytes, myelocytes and metamyelocytes) > 1% indicates that a LEFT SHIFT is Present. Laboratory - Hematology and Cell countsOrdered By: Radha Villalobos on 01-13-2024 MCH (RBC) [Entitic mass] 29.0 pg 27.0-32.0 [facility] MCHC (RBC) [Mass/Vol] 33.2 g/dL 32-36 [facility] Nucleated RBC/100 WBC (Bld) [Ratio] 0 % 0-5 [facility] Platelet mean volume (Bld) [Entitic vol] 11.6 fL 6.2-12.0 [facility] Platelets (Bld) [#/Vol] 166 10*3/uL 150-450 [facility] RBC Auto (Bld) [#/Vol]Ordere d By: Radha Villalobos on 01-13-2024 RBC (Bld) [#/Vol] 3.93 10*6/uL 4.2-5.4 [facility] Serum Treponema species anti body detectionOrdered By: Radha Villalobos on 01-13-2024 Treponema sp Ab Ql (S) Non-Reactive [facility] Laboratory - Chemistry and C hemistry - challengeon 01-08-2024 Glucose Ql (U) Negative [facility] Laboratory - Urinalysison Protein Ql (U) Negative [facility] No Panel InformationOrdered By: Radha Villalobos on 01-08-2024 Group B Streptococcus Culture Group B Beta Streptococcus is not isolated. [facility] Bilirubin Test strip Ql (U)O rdered By: Fanta Zarate on 01-02-2024 Bilirubin Ql (U) Negative Negative [facility] Culture, urineOrdered By: Justin Zarate on 01-02-2024 Bacteria identified Cx Nom (U) Culture exhibits no growth. [facility] Ketones Test strip Ql (U)Ord ered By: Fanta Zarate on 01-02-2024 Ketones Ql (U) 150 mg/dl Negative [facility] Comment on above: CRITICAL VALUE *HCRI TICAL VALUE VERIFIED. CALLED TO ANN KO (WP)01/02/24 1147 Sagar Guzman.RESULTS READ BACK BY SAME. Nitrite Test strip Ql (U)Ord ered By: Fanta Zarate on 01-02-2024 Nitrite Ql (U) Negative Negative [facility] Protein Test strip Ql (U)Ord ered By: Fanta Zarate on 01-02-2024 Protein Ql (U) Negative Negative [facility] Urine blood detectionOrdered By: Fanta Zarate on 01-02-2024 RBC Ql (U) Negative Negative [facility] Urine clarityOrdered By: Douglas Zarate on 01-02-2024 Clarity (U) Sl. Cloudy Clear [facility] Urine color determinationOrd ered By: Fanta Zarate on 01-02-2024 Color (U) Yellow Yellow [facility] Urine glucose detectionOrder ed By: Fanta Zarate on 01-02-2024 Glucose Ql (U) Normal mg/dl Normal [facility] Urine leukocyte esterase det ection by dipstickOrdered By: Fanta Zarate on 01-02-2024 Leukocyte esterase Test strip Ql (U) 25 /ul Negative [facility] Urine pHOrdered By: Fanta blanchard on 01-02-2024 pH (U) 6.5 [pH] 5.0 - 8.0 [facility] Urine specific gravity measu rementOrdered By: Fanta Zarate on 01-02-2024 Specific gravity (U) [Rel density] 1.010 1.002-1.030 [facility] Urine urobilinogen measureme ntOrdered By: Fanta Zarate on 01-02-2024 Urobilinogen Ql (U) Normal mg/dl Normal [facility] Culture, urineOrdered By: Neo Villalobos on 12-11-2023 Bacteria identified Cx Nom (U) Culture exhibits no growth. [facility] Gram stain for investigation of transfusion reactionOrdered By: Radha Villalobos on 12-11-2023 Microscopic observation Gram stain Nom (Unsp spec) [facility] Laboratory - Chemistry and C hemistry - challengeon 12-11-2023 Bilirubin Ql (U) Negative [facility] Glucose Ql (U) Negative [facility] Ketones Ql (U) Negative [facility] pH (U) 6.0 [pH] [facility] Specific gravity (U) [Rel density] 1.015 [facility] Urobilinogen (U) [Mass/Vol] 0.8227889 mg/dL [facility] Laboratory - Hematology and Cell countson 12-11-2023 Hemoglobin Ql (U) Negative [facility] Laboratory - Specimen inform ationon 12-11-2023 Clarity (U) Clear [facility] Color (U) Yellow [facility] Laboratory - Urinalysison Nitrite Ql (U) Negative [facility] Protein Ql (U) Negative [facility] No Panel InformationOrdered By: Radha Villalobos on 12-11-2023 Genital Culture Neisseria or beta-hemolytic Streptococcus isolated. [facility] No Panel Informationon 12-10 Urine Leukocytes Positive [facility] Laboratory - Chemistry and C hemistry - challengeon 11-28-2023 Glucose Ql (U) Negative [facility] Laboratory - Urinalysison Protein Ql (U) Negative [facility] Laboratory - Chemistry and C hemistry - challengeon 11-13-2023 Glucose Ql (U) Negative [facility] Laboratory - Urinalysison Protein Ql (U) Negative [facility] Gestational diabetes screen 1-hour screen with 50g oral glucose loadOrdered By: Fanta Zarate on 10-17-2023 Glucose 1 Hr post 50 g glucose PO [Mass/Vol] 102 mg/dL 70-140 [facility] Laboratory - Chemistry and C hemistry - challengeon 10-17-2023 Glucose Ql (U) Negative [facility] Laboratory - Urinalysison Protein Ql (U) Negative [facility] Laboratory - Chemistry and C hemistry - challengeon 07-25-2023 Glucose Ql (U) Negative [facility] Laboratory - Urinalysison Protein Ql (U) Negative [facility] COVID-19 virus antigen assay Ordered By: Scott Artis on 07-12-2023 SARS-CoV-2 (COVID-19) Ag IA.rapid Ql (Resp) [facility] COVID-19 virus antigen assay Ordered By: Scott Artis on 07-11-2023 SARS-CoV-2 (COVID-19) Ag IA.rapid Ql (Resp) [facility] Absolute lymphocyte countOrd ered By: Fanta Zarate on 06-24-2023 Lymphocytes Auto (Unsp spec) [#/Vol] 1.76 10*3/uL 0.83-4.51 [facility] Basophil percentageOrdered B y: Fanta Zarate on 06-24-2023 Basophils/100 WBC (Bld) 0.7 % 0-1 [facility] Eosinophils/100 WBC (Bld) 2.6 % 0-5 [facility] Neutrophils (Bld) [#/Vol] 3.7 10*3/uL 2.0-7.7 [facility] Neutrophils/100 WBC (Bld) 60.6 % 47-70 [facility] WBC (Bld) [#/Vol] 6.1 10*3/uL 4.4-11.0 [facility] Blood erythrocytes count (nu mber/volume)Ordered By: Fanta Zarate on 06-24-2023 RBC (Bld) [#/Vol] 4.32 10*6/uL 4.2-5.4 [facility] Blood hemoglobin measurement (mass/volume)Ordered By: Fanta Zarate on 06-24-2023 Hemoglobin (Bld) [Mass/Vol] 12.3 g/dL 12.0-15.0 [facility] Blood lymphocytes/100 leukoc ytesOrdered By: Fanta Zarate on 06-24-2023 Lymphocytes/100 WBC (Bld) 29.0 % 19-41 [facility] Blood monocytes/100 leukocyt esOrdered By: Fanta Zarate on 06-24-2023 Monocytes/100 WBC (Bld) 6.6 % 0-10 [facility] Blood platelet mean volumeOr dered By: Fanta Zarate on 06-24-2023 Platelet mean volume (Bld) [Entitic vol] 10.3 fL 6.2-12.0 [facility] Cervical or vagninal specime n microscopic examination by cytology stain (reported asOrdered By: Fanta Zarate on 06-24-2023 Cytology report Cyto stain Doc (Cvx/Vag) Comment . [facility] Comment on above: The Pap smear is [...] Fanta Zarate on 06-24-2023 C. trachomatis rRNA IJMMY+probe Ql (Unsp spec) Negative Negative [facility] Culture, urineOrdered By: Justin Zarate on 06-24-2023 Bacteria identified Cx Nom (U) Culture exhibits no growth. [facility] Bacteria identified Cx Nom (U) Culture exhibits no growth. [facility] Determination of erythrocyte mean corpuscular volume (MCV)Ordered By: Fanta Zarate on 06-24-2023 MCV (RBC) [Entitic vol] 87.3 fL 81-99 [facility] HIV 1 and HIV-2 antibody ass ay with HIV-1 p24 antigen detectionOrdered By: Fanta Zarate on 06-24-2023 HIV 1+2 Ab+HIV1 p24 Ag IA Ql Non-Reactive Nonreactive [facility] Hematocrit Auto (Bld) [Volum e fraction]Ordered By: Fanta Zarate on 06-24-2023 Hematocrit (Bld) [Volume fraction] 37.7 % 37-47 [facility] Laboratory - CytologyOrdered By: Fanta Zarate on 06-24-2023 Mirror Framer Cyto stain Nom (Cvx/Vag) [ID] Comment . [facility] Comment on above: Penny Heredia, Cytotec hnologist (ASCP) Laboratory - Hematology and Cell countsOrdered By: Fanta Zarate on 06-24-2023 Erythrocyte distribution width (RBC) [Entitic vol] 39.6 fL 35.1-43.9 [facility] Erythrocyte distribution width (RBC) [Ratio] 12.5 % 11.6-14.6 [facility] Immature granulocytes/100 WBC (Bld) 0.500 % 0.0-0.9 [facility] Comment on above: IG% - Immature Granu locytes (promyelocytes, myelocytes and metamyelocytes) > 1% indicates that a LEFT SHIFT is Present. MCH (RBC) [Entitic mass] 28.5 pg 27.0-32.0 [facility] Nucleated RBC/100 WBC (Bld) [Ratio] 0 % 0-5 [facility] Laboratory - Microbiology an d Antimicrobial susceptibilityOrdered By: Fanta Zarate on 06-24-2023 N. gonorrhoeae DNA JIMMY+probe Ql (Unsp spec) Negative Negative [facility] Comment on above: Performed at: =G - L [address] [id number] Director: Leta Holt MD, Phone: [phone] Laboratory - Miscellaneous t estsOrdered By: Fanta Zarate on 06-24-2023 Service comment (Unsp spec) [Interp] Comment . [facility] Comment on above: This liquid based Th inPrep(R) pap test was screened withthe use of an image guided system. Service comment (Unsp spec) [Interp] . . [facility] [Mass/Vol]Or dered By: Fanta Zarate on 06-24-2023 MCHC (RBC) [Mass/Vol] 32.6 g/dL 32-36 [facility] No Panel InformationOrdered By: Fanta Zarate on 06-24-2023 Human Papillomavirus Screen Comment . [facility] Comment on above: The HPV DNA reflex c riteria were not met with this specimenresult therefore, no HPV testing was performed.Performed at: [facility] [id number] [place], [place] [id number] Director: Juan Doyle MD, Phone: [phone] at: [facility] - [facility] [id number] Director: Leta Holt MD, Phone: [phone] Pathology report final diagnosis Narrative Comment . [facility] Comment on above: NEGATIVE FOR INTRAEP ITHELIAL LESION OR MALIGNANCY. Hepatitis B Surface Antigen Non-Reactive Nonreactive [facility] Hepatitis C Antibody Non-Reactive Nonreactive [facility] Comment on above: Non Reactive: < 0.8 Equivocal: >/= 0.8 to < 1.0 Reactive: >/= 1.0The CDC recommends that a reactive/equivocal HCV antibody result be followed up by the HCV Nucleic Acid Amplificationtest (754525) Rubella IgG Antibody Reactive Nonreactive [facility] Comment on above: Antibody Results Int erpretation of Immune Status Non Reactive Presumed Non-Immune Equivocal Equivocal Reactive Presumed Immune Platelets bldOrdered By: Douglas Zarate on 06-24-2023 Platelets (Bld) [#/Vol] 219 10*3/uL 150-450 [facility] Serum Treponema species anti body detectionOrdered By: Fanta Octavioshivani on 06-24-2023 Treponema sp Ab Ql (S) Non-Reactive [facility] Laboratory - Chemistry and C hemistry - challengeon 08-01-2022 Free T4 [Mass/Vol] 0.84 ng/dL 0.76-1.46 [facility] Work Phone: No Panel Informationon 08-01 Thyroid Stimulating Hormone (TSH) 1.19 uIU/mL 0.358-3.74 [facility] Work Phone: Absolute lymphocyte counton 06-21-2022 Lymphocytes Auto (Unsp spec) [#/Vol] 1.28 10*3/uL 0.83-4.51 [facility] Work Phone: Basophil percentageon 2021 Basophils/100 WBC (Bld) 0.3 % 0-1 [facility] Work Phone: Eosinophils/100 WBC (Bld) 1.4 % 0-5 [facility] Work Phone: Neutrophils (Bld) [#/Vol] 4.3 10*3/uL 2.0-7.7 [facility] Work Phone: Neutrophils/100 WBC (Bld) 68.8 % 47-70 [facility] Work Phone: WBC (Bld) [#/Vol] 6.2 10*3/uL 4.4-11.0 [facility] Work Phone: [phone] Blood erythrocytes count (nu mber/volume)on 06-21-2022 RBC (Bld) [#/Vol] 3.88 10*6/uL 4.2-5.4 [facility] Work Phone: Blood hemoglobin measurement (mass/volume)on 06-21-2022 Hemoglobin (Bld) [Mass/Vol] 10.8 g/dL 12.0-15.0 [facility] Work Phone: Blood lymphocytes/100 leukoc yteson 06-21-2022 Lymphocytes/100 WBC (Bld) 20.5 % 19-41 [facility] Work Phone: Blood monocytes/100 leukocyt eson 06-21-2022 Monocytes/100 WBC (Bld) 8.7 % 0-10 [facility] Work Phone: Blood platelet mean volumeon 06-21-2022 Platelet mean volume (Bld) [Entitic vol] 12.7 fL 6.2-12.0 [facility] Work Phone: Determination of erythrocyte mean corpuscular volume (MCV)on 06-21-2022 MCV (RBC) [Entitic vol] 85.3 fL 81-99 [facility] Work Phone: Hematocrit Auto (Bld) [Volum e fraction]on 06-21-2022 Hematocrit (Bld) [Volume fraction] 33.1 % 37-47 [facility] Work Phone: Laboratory - Hematology and Cell countson 06-21-2022 Erythrocyte distribution width (RBC) [Entitic vol] 40.7 fL 35.1-43.9 [facility] Work Phone: Erythrocyte distribution width (RBC) [Ratio] 13.5 % 11.6-14.6 [facility] Work Phone: Immature granulocytes/100 WBC (Bld) 0.300 % 0.0-0.9 [facility] Work Phone: Comment on above: IG% - Immature Granu locytes (promyelocytes, myelocytes and metamyelocytes) > 1% indicates that a LEFT SHIFT is Present. MCH (RBC) [Entitic mass] 27.8 pg 27.0-32.0 [facility] Work Phone: [phone] Nucleated RBC/100 WBC (Bld) [Ratio] 0 % 0-5 [facility] Work Phone: MCHC Auto (RBC) [Mass/Vol]on 06-21-2022 MCHC (RBC) [Mass/Vol] 32.6 g/dL 32-36 [facility]: Platelets bldon 06-21-2022 Platelets (Bld) [#/Vol] 121 10*3/uL 150-450 [facility] Work Phone: Basophil percentageon 2021 WBC (Bld) [#/Vol] 8.8 10*3/uL 4.4-11.0 [facility] Work Phone: Blood erythrocytes count (nu mber/volume)on 06-07-2022 RBC (Bld) [#/Vol] 3.98 10*6/uL 4.2-5.4 [facility] Work Phone: Blood hemoglobin measurement (mass/volume)on 06-07-2022 Hemoglobin (Bld) [Mass/Vol] 11.3 g/dL 12.0-15.0 [facility] Work Phone: Blood platelet mean volumeon 06-07-2022 Platelet mean volume (Bld) [Entitic vol] 12.0 fL 6.2-12.0 [facility] Work Phone: Determination of erythrocyte mean corpuscular volume (MCV)on 06-07-2022 MCV (RBC) [Entitic vol] 86.4 fL 81-99 [facility] Work Phone: Hematocrit Auto (Bld) [Volum e fraction]on 06-07-2022 Hematocrit (Bld) [Volume fraction] 34.4 % 37-47 [facility] Work Phone: Laboratory - Hematology and Cell countson 06-07-2022 Erythrocyte distribution width (RBC) [Entitic vol] 41.1 fL 35.1-43.9 [facility] Work Phone: Erythrocyte distribution width (RBC) [Ratio] 13.3 % 11.6-14.6 [facility] Work Phone: MCH (RBC) [Entitic mass] 28.4 pg 27.0-32.0 [facility] Work Phone: MCHC Auto (RBC) [Mass/Vol]on 06-07-2022 MCHC (RBC) [Mass/Vol] 32.8 g/dL 32-36 [facility] Work Phone: No Panel Informationon 06-07 Vaginal Amniotic Fluid Detection Negative Negative [facility] Work Phone: Comment on above: Amniotic fluid not p resent indicates No Rupture of FetalMembranes at time of specimen collection. Platelets bldon 06-07-2022 Platelets (Bld) [#/Vol] 136 10*3/uL 150-450 [facility] Work Phone: Bilirubin Test strip Ql (U)o n 04-23-2022 Bilirubin Ql (U) Negative Negative [facility] Work Phone: Ketones Test strip Ql (U)on 04-23-2022 Ketones Ql (U) Negative Negative [facility] Work Phone: Nitrite Test strip Ql (U)on 04-23-2022 Nitrite Ql (U) Negative Negative [facility] Work Phone: Protein Test strip Ql (U)on 04-23-2022 Protein Ql (U) Negative Negative [facility] Work Phone: Urine blood detectionon 04-06 RBC Ql (U) 10 /ul Negative [facility] Work Phone: Urine clarityon 04-23-2022 Clarity (U) Sl. Cloudy Clear [facility] Work Phone: Urine color determinationon 04-23-2022 Color (U) Yellow Yellow [facility] Work Phone: Urine glucose detectionon Glucose Ql (U) Normal mg/dl Normal [facility] Work Phone: Urine leukocyte esterase det ection by dipstickon 04-23-2022 Leukocyte esterase Test strip Ql (U) 500 /ul Negative [facility] Work Phone: Urine pHon 04-23-2022 pH (U) 7.0 [pH] 5.0 - 8.0 [facility] Work Phone: Urine specific gravity measu rementon 04-23-2022 Specific gravity (U) [Rel density] 1.005 1.002-1.030 [facility] Work Phone: Urobilinogen Auto test strip Ql (U)on 04-23-2022 Urobilinogen Ql (U) Normal mg/dl Normal [facility] Work Phone: Basophil percentageon 2021 WBC (Bld) [#/Vol] 7.9 10*3/uL 4.4-11.0 [facility] Work Phone: Blood erythrocytes count (nu mber/volume)on 03-27-2022 RBC (Bld) [#/Vol] 4.05 10*6/uL 4.2-5.4 [facility] Work Phone: Blood hemoglobin measurement (mass/volume)on 03-27-2022 Hemoglobin (Bld) [Mass/Vol] 11.9 g/dL 12.0-15.0 [facility] Work Phone: Blood platelet mean volumeon 03-27-2022 Platelet mean volume (Bld) [Entitic vol] 11.0 fL 6.2-12.0 [facility] Work Phone: Determination of erythrocyte mean corpuscular volume (MCV)on 03-27-2022 MCV (RBC) [Entitic vol] 89.9 fL 81-99 [facility] Work Phone: Gestational diabetes screen 1-hour screen with 50g oral glucose loadon 03-27-2022 Glucose 1 Hr post 50 g glucose PO [Mass/Vol] 93 mg/dL 70-140 [facility] Work Phone: Hematocrit Auto (Bld) [Volum e fraction]on 03-27-2022 Hematocrit (Bld) [Volume fraction] 36.4 % 37-47 [facility] Work Phone: Laboratory - Hematology and Cell countson 03-27-2022 Erythrocyte distribution width (RBC) [Entitic vol] 43.7 fL 35.1-43.9 [facility] Work Phone: Erythrocyte distribution width (RBC) [Ratio] 13.3 % 11.6-14.6 [facility] Work Phone: MCH (RBC) [Entitic mass] 29.4 pg 27.0-32.0 [facility] Work Phone: MCHC Auto (RBC) [Mass/Vol]on 03-27-2022 MCHC (RBC) [Mass/Vol] 32.7 g/dL 32-36 [facility] Work Phone: Platelets bldon 03-27-2022 Platelets (Bld) [#/Vol] 178 10*3/uL 150-450 [facility] Work Phone: [phone] NOVEL CORONAVIRUSon 05-29-20 21 NARRATIVE This test was perfor med using isothermal JIMMY and has been approved as Emergency Use Authorization (EUA) for the qualitative detection [id number]-4 nucleic acid. Normal [facility] Comment on above: Performed By: #### C OVID #### Testing performed at [place] [id number] SARS-CoV-2 (COVID-19) RNA JIMMY+probe Ql (Unsp spec) Not detected Normal NOT DETECTED [facility] Comment on above: Result Comment: [...] #### C OVID #### Testing performed at [address] [address] NOVEL CORONAVIRUSon 05-25-20 21 NARRATIVE This test was perfor med using isothermal JIMMY and has been approved as Emergency Use Authorization (EUA) for the qualitative detection [id number] nucleic acid. Normal [facility] Comment on above: Performed By: #### C OVID #### Testing performed at [address] [address] SARS-CoV-2 (COVID-19) RNA JIMMY+probe Ql (Unsp spec) Not detected Normal NOT DETECTED [facility] Comment on above: Result Comment: [...] #### C OVID #### Testing performed at [address] [address] URINE CULTUREon 02-27-2021 Bacteria identified Cx Nom (U) SPECIMEN DESCRIPTION URINE CLEAN CATCH UA DIPSTICK LEUKOCYTE POSITIVE * Result Note: NITRITE NEGATIVE * CULTURE NO PATHOGENS ISOLATED * Result Note: Testing performed at [place] [address] * REPORT STATUS 03/01/2021 * Result Note: FINAL * Normal [facility] Comment on above: Performed By: #### A URNC #### Testing performed at [address] [address] Testing performed at [address] [address] URINE MACROSCOPICon 02-28-20 21 Bilirubin Ql (U) Negative Normal NEGATIVE [facility] Comment on above: Performed By: #### U MAC, UMIC #### Testing performed at [address] [address] Clarity (U) CLEAR Normal CLEAR [facility] Comment on above: Performed By: #### U MAC, UMIC #### Testing performed at [address] [address] Color (U) YELLOW Normal YELLOW [facility] Comment on above: Performed By: #### U MAC, UMIC #### Testing performed at [address] [address] Glucose Ql (U) Negative Normal NEGATIVE [facility] Comment on above: Performed By: #### U MAC, UMIC #### Testing performed at [address] [address] pH (U) 5.5 [pH] Normal 5.0-7.0 [facility] Comment on above: Performed By: #### U MAC, UMIC #### Testing performed at [address] [address] URINE HEMOGLOBIN SMALL Abnormal NEGATIVE [facility] Comment on above: Performed By: #### U MAC, UMIC #### Testing performed at [address] [address] URINE KETONE TRACE Abnormal NEGATIVE [facility] Comment on above: Performed By: #### U MAC, UMIC #### Testing performed at [address] [address] URINE LEUKOTEST SMALL Abnormal NEGATIVE [facility] Comment on above: Performed By: #### U MAC, UMIC #### Testing performed at [address] [address] URINE NITRATES Negative Normal NEGATIVE [facility] Comment on above: Performed By: #### U MAC, UMIC #### Testing performed at [address] [address] URINE SPEC GRAVITY >1.030 High 1.010-1.025 [facility] Comment on above: Performed By: #### U MAC, UMIC #### Testing performed at [address] [address] URINE TOTAL PROTEIN Negative Normal NEGATIVE [facility] Comment on above: Performed By: #### U MAC, UMIC #### Testing performed at [address] [address] Urobilinogen Qn (U) 0.2 {Ita'U}/dL Normal 0.2-1.0 [facility] Comment on above: Performed By: #### U MAC, UMIC #### Testing performed at [address] [address] URINE MICROSCOPICon 2420 21 Bacteria LM.HPF (Urine sed) [#/Area] Negative Normal NEGATIVE [facility] Comment on above: Performed By: #### U MAC, UMIC #### Testing performed at [address] [address] CASTS NONE Normal NONE [facility] Comment on above: Performed By: #### U MAC, UMIC #### Testing performed at [address] [place] [address] CRYSTAL NONE Normal NONE [facility] Comment on above: Performed By: #### U MAC, UMIC #### Testing performed at [address] [place] [address] Epithelial cells LM Ql (Urine sed) 1 TO 5 Normal [facility] Comment on above: Performed By: #### U MAC, UMIC #### Testing performed at [address] [address] Mucus Ql (Urine sed) Negative Normal NEGATIVE [facility] Comment on above: Performed By: #### U MAC, UMIC #### Testing performed at [address] [address] URINE COMMENT REFLEX CULTURE PER ESTABLISHED CRITERIA. Normal [facility] Comment on above: Performed By: #### U MAC, UMIC #### Testing performed at [address] [address] URINE RBC'S 1 TO 5 Normal NEGATIVE [facility] Comment on above: Performed By: #### U MAC, UMIC #### Testing performed at [address] [address] URINE WBC'S 1 TO 5 Normal NEGATIVE [facility] Comment on above: Performed By: #### U MAC, UMIC #### Testing performed at [address] [place] [address] No Panel InformationOrdered By: Sagar Rodriguez on 02-26-[address] [facility] URINALYSIS, MACROOrdered By: Sagar Rodriguez on 02-26-2021 Bilirubin Ql (U) Negative NEGATIVE [facility] Clarity (U) CLEAR CLEAR [facility] Color (U) YELLOW YELLOW [facility] Glucose Test strip (U) [Mass/Vol] Negative NEGATIVE mg/dl [facility] Hemoglobin Ql (U) SMALL Abnormal NEGATIVE [facility] Interpretation and review of laboratory results Abnormal [facility] Ketones (U) [Mass/Vol] TRACE Abnormal NEGAT DUNIA mg/dl [facility] Leukocyte esterase Test strip Ql (U) SMALL Abnormal NEGATIVE [facility] Nitrite Ql (U) Negative NEGATIVE [facility] pH (U) 5.5 [pH] [facility] Protein Ql (U) Negative NEGATIVE mg/dl [facility] Specific gravity (U) [Rel density] >1.030 High [facility] Urobilinogen (U) [Mass/Vol] 0.2 mg/dL [facility] URINE MICROSCOPICOrdered By: Sagar Rodriguez on 02-26-2021 Bacteria LM.HPF (Urine sed) [#/Area] Negative NEGATIVE [facility] Casts LM.LPF (Urine sed) [#/Area] NONE NONE /LPF [facility] Crystals LM Nom (Urine sed) NONE NONE [facility] Epithelial cells LM Ql (Urine sed) 1 TO 5 /HPF [facility] Mucus Ql (Urine sed) Negative NEGATIVE [facility] RBC LM.HPF (Urine sed) [#/Area] 1 TO 5 NEGATIVE /HPF [facility] Urine sediment comments LM Liuns (Urine sed) REFLEX CULTURE PER ESTABLISHED CRITERIA. [facility] WBC LM.HPF (Urine sed) [#/Area] 1 TO 5 NEGATIVE /HPF [facility] CBCon 02-13-2021 ABSOLUTE BAS 0.1 10*3/uL Normal 0.0-0.2 [facility] Comment on above: Result Comment: Test ing performed at [place] [address] Performed By: #### R TOXR, UMAC, UMIC #### [place] [address] ABSOLUTE EOS 0.00 10*3/uL Normal 0.0-0.7 [facility] Comment on above: Performed By: #### R TOXR, UMAC, UMIC #### [place] [address] ABSOLUTE NEUTROPHIL COUNT 13.5 10*3/uL High 1.4-6.5 [facility] Comment on above: Performed By: #### R TOXR, UMAC, UMIC #### Testing performed at [address] [place] [address] Basophils/100 WBC (Bld) 0.4 % Normal 0.0-2.0 [facility] Comment on above: Performed By: #### R TOXR, UMAC, UMIC #### Testing performed at [address] [address] DTYPE AUTO DIFF Normal [facility] Comment on above: Performed By: #### R TOXR, UMAC, UMIC #### Testing performed at [address] [address] Eosinophils/100 WBC (Bld) 0.1 % Normal 0.0-11.0 [facility] Comment on above: Performed By: #### R TOXR, UMAC, UMIC #### Testing performed at [address] [address] Lymphocytes (Bld) [#/Vol] 1.40 10*3/uL Normal 1.2-3.4 [facility] Comment on above: Performed By: #### R TOXR, UMAC, UMIC #### Testing performed at [address] [address] Lymphocytes/100 WBC (Bld) 8.9 % Low 20.0-55.0 [facility] Comment on above: Performed By: #### R TOXR, UMAC, UMIC #### Testing performed at [address] [address] Monocytes (Bld) [#/Vol] 0.9 10*3/uL High 0.0-0.7 [facility] Comment on above: Performed By: #### R TOXR, UMAC, UMIC #### Testing performed at [address] [address] Monocytes/100 WBC (Bld) 5.7 % Normal 0.0-10.0 [facility] Comment on above: Performed By: #### R TOXR, UMAC, UMIC #### Testing performed at [address] [address] Neutrophils/100 WBC (Bld) 84.9 % High 37.0-75.0 [facility] Comment on above: Performed By: #### R TOXR, UMAC, UMIC #### Testing performed at [address] [address] Erythrocyte distribution width (RBC) [Ratio] 14.1 % Normal 11.5-14.5 [facility] Comment on above: Performed By: #### R TOXR, UMAC, UMIC #### Testing performed at [address] [address] Hematocrit (Bld) [Volume fraction] 32.2 % Low 36.0-48.0 [facility] Comment on above: Performed By: #### R TOXR, UMAC, UMIC #### Testing performed at [address] [address] Hemoglobin (Bld) [Mass/Vol] 10.9 g/dL Low 12.0-16.0 [facility] Comment on above: Performed By: #### R TOXR, UMAC, UMIC #### Testing performed at [address] [address] MCH (RBC) [Entitic mass] 28.9 pg Normal 26.0-35.0 [facility] Comment on above: Performed By: #### R TOXR, UMAC, UMIC #### Testing performed at [address] [address] MCHC (RBC) [Mass/Vol] 33.8 g/dL Normal 27.0-37.0 [facility] Comment on above: Performed By: #### R TOXR, UMAC, UMIC #### Testing performed at [address] [address] MCV (RBC) [Entitic vol] 85.6 fL Normal 80.0-100.0 [facility] Comment on above: Performed By: #### R TOXR, UMAC, UMIC #### Testing performed at [address] [address] Platelet mean volume (Bld) [Entitic vol] 9.5 fL Normal 7.4-11.0 [facility] Comment on above: Performed By: #### R TOXR, UMAC, UMIC #### [place] [address] Platelets (Bld) [#/Vol] 129 10*3/uL Low 130.0-400.0 [facility] Comment on above: Performed By: #### R TOXR, UMAC, UMIC #### [place] [address] RBC (Bld) [#/Vol] 3.76 10*6/uL Low 4.0-5.4 [facility] Comment on above: Performed By: #### R TOXR, UMAC, UMIC #### [place] [address] WBC (Bld) [#/Vol] 15.9 10*3/uL High 3.6-11.0 [facility] Comment on above: Performed By: #### R TOXR, UMAC, UMIC #### [place] [address] CBCon 02-12-2021 ABSOLUTE BAS 0.1 10*3/uL Normal 0.0-0.2 [facility] Comment on above: Result Comment: Test ing performed at [place] [address] Performed By: #### R TOXR, UMAC, UMIC #### [place] [address] ABSOLUTE EOS 0.10 10*3/uL Normal 0.0-0.7 [facility] Comment on above: Performed By: #### R TOXR, UMAC, UMIC #### [place] [address] ABSOLUTE NEUTROPHIL COUNT 7.6 10*3/uL High 1.4-6.5 [facility] Comment on above: Performed By: #### R TOXR, UMAC, UMIC #### [place] [address] Basophils/100 WBC (Bld) 0.9 % Normal 0.0-2.0 [facility] Comment on above: Performed By: #### R TOXR, UMAC, UMIC #### Testing performed at [address] [address] DTYPE AUTO DIFF Normal [facility] Comment on above: Performed By: #### R TOXR, UMAC, UMIC #### Testing performed at [address] [address] Eosinophils/100 WBC (Bld) 0.6 % Normal 0.0-11.0 [facility] Comment on above: Performed By: #### R TOXR, UMAC, UMIC #### Testing performed at [address] [address] Lymphocytes (Bld) [#/Vol] 2.20 10*3/uL Normal 1.2-3.4 [facility] Comment on above: Performed By: #### R TOXR, UMAC, UMIC #### Testing performed at [address] [address] Lymphocytes/100 WBC (Bld) 20.5 % Normal 20.0-55.0 [facility] Comment on above: Performed By: #### R TOXR, UMAC, UMIC #### Testing performed at [address] [address] Monocytes (Bld) [#/Vol] 0.7 10*3/uL Normal 0.0-0.7 [facility] Comment on above: Performed By: #### R TOXR, UMAC, UMIC #### Testing performed at [address] [address] Monocytes/100 WBC (Bld) 6.3 % Normal 0.0-10.0 [facility] Comment on above: Performed By: #### R TOXR, UMAC, UMIC #### Testing performed at [address] [address] Neutrophils/100 WBC (Bld) 71.7 % Normal 37.0-75.0 [facility] Comment on above: Performed By: #### R TOXR, UMAC, UMIC #### Testing performed at [address] [address] Erythrocyte distribution width (RBC) [Ratio] 14.0 % Normal 11.5-14.5 [facility] Comment on above: Performed By: #### R TOXR, UMAC, UMIC #### Testing performed at [place] [address] Hematocrit (Bld) [Volume fraction] 36.7 % Normal 36.0-48.0 [facility] Comment on above: Performed By: #### R TOXR, UMAC, UMIC #### Testing performed at [place] [address] Hemoglobin (Bld) [Mass/Vol] 12.4 g/dL Normal 12.0-16.0 [facility] Comment on above: Performed By: #### R TOXR, UMAC, UMIC #### Testing performed at [address] [address] MCH (RBC) [Entitic mass] 28.5 pg Normal 26.0-35.0 [facility] Comment on above: Performed By: #### R TOXR, UMAC, UMIC #### Testing performed at [address] [address] MCHC (RBC) [Mass/Vol] 33.7 g/dL Normal 27.0-37.0 [facility] Comment on above: Performed By: #### R TOXR, UMAC, UMIC #### Testing performed at [address] [address] MCV (RBC) [Entitic vol] 84.5 fL Normal 80.0-100.0 [facility] Comment on above: Performed By: #### R TOXR, UMAC, UMIC #### Testing performed at [address] [address] Platelet mean volume (Bld) [Entitic vol] 9.1 fL Normal 7.4-11.0 [facility] Comment on above: Performed By: #### R TOXR, UMAC, UMIC #### [place] [address] Platelets (Bld) [#/Vol] 152 10*3/uL Normal 130.0-400.0 [facility] Comment on above: Performed By: #### R TOXR, UMAC, UMIC #### [place] [address] RBC (Bld) [#/Vol] 4.34 10*6/uL Normal 4.0-5.4 [facility] Comment on above: Performed By: #### R TOXR, UMAC, UMIC #### [place] [address] WBC (Bld) [#/Vol] 10.6 10*3/uL Normal 3.6-11.0 [facility] Comment on above: Performed By: #### R TOXR, UMAC, UMIC #### [place] [address] NOVEL CORONAVIRUSon 02-13-20 21 NARRATIVE This test was perfor med using isothermal JIMMY and has been approved as Emergency Use Authorization (EUA) for the qualitative detection gyQWIQ-[id number]-[id number] nucleic acid. Normal [facility] Comment on above: Result Comment: Test ing performed at [place] [address] Performed By: #### R TOXR, UMAC, UMIC #### [place] [address] SARS-CoV-2 (COVID-19) RNA JIMMY+probe Ql (Unsp spec) Not detected Normal NOT DETECTED [facility] Comment on above: Result Comment: Nega [...] TOXR, UMAC, UMIC #### [place] [address] TYPE AND SCREEN CROSSMATCH C ONVERTIBLEon 02-12-2021 TYPE AND SCREEN CROSSMATCH CONVERTIBLE UNITS ORDERED 0 WORKUP EXPIRES 02/15/2021,2359 ABO/RH(D) O POSITIVE ANTIBODY SCREEN NEGATIVE ARM BAND NUMBER [id number] Testing performed at [place] [address] Normal [facility] Comment on above: Performed By: #### R TOXR, UMAC, UMIC #### [place] [address] RAPID TOX SCREEN,URINE WITH REFLEXon 02-11-2021 AMPHETAMINE Negative Normal NEGATIVE [facility] Comment on above: Performed By: #### R TOXR, UMAC, UMIC #### [place] [address] BARBITURATES Negative Normal NEGATIVE [facility] Comment on above: Performed By: #### R TOXR, UMAC, UMIC #### [place] [address] BENZODIAZEPINES Negative Normal NEGATIVE [facility] Comment on above: Performed By: #### R TOXR, UMAC, UMIC #### [place] [address] BUPRENORPHINE Negative Normal NEGATIVE [facility] Comment on above: Result Comment: Test ing performed at [place] [address] Performed By: #### R TOXR, UMAC, UMIC #### [place] [address] CANNABINOIDS Negative Normal NEGATIVE [facility] Comment on above: Performed By: #### R TOXR, UMAC, UMIC #### [place] [address] COCAINE Negative Normal NEGATIVE [facility] Comment on above: Performed By: #### R TOXR, UMAC, UMIC #### Testing performed at [address] [address] METHADONE Negative Normal NEGATIVE [facility] Comment on above: Performed By: #### R TOXR, UMAC, UMIC #### Testing performed at [address] [place] [address] METHAMPHETAMINE Negative Normal NEGATIVE [facility] Comment on above: Performed By: #### R TOXR, UMAC, UMIC #### Testing performed at [address] [address] OPIATES Negative Normal NEGATIVE [facility] Comment on above: Performed By: #### R TOXR, UMAC, UMIC #### [place] [address] OXYCODONE Negative Normal NEGATIVE [facility] Comment on above: Performed By: #### R TOXR, UMAC, UMIC #### Testing performed at [place] [address] PHENCYCLIDINE Negative Normal NEGATIVE [facility] Comment on above: Performed By: #### R TOXR, UMAC, UMIC #### Testing performed at [address], [facility] PROPOXYPHENE Negative Normal NEGATIVE [facility] Comment on above: Performed By: #### R TOXR, UMAC, UMIC #### [place] [address] TRICYCLIC ANTIDEPRESSANTS Negative Normal NEGATIVE [facility] Comment on above: Performed By: #### R TOXR, UMAC, UMIC #### Testing performed at [address] [address] URINE MACROSCOPICon 02-12-20 Bilirubin Ql (U) Negative Normal NEGATIVE [facility] Comment on above: Performed By: #### R TOXR, UMAC, UMIC #### Testing performed at [address] [address] Clarity (U) CLEAR Normal CLEAR [facility] Comment on above: Performed By: #### R TOXR, UMAC, UMIC #### [place] [address] Color (U) YELLOW Normal YELLOW [facility] Comment on above: Performed By: #### R TOXR, UMAC, UMIC #### [place] [address] Glucose Ql (U) Negative Normal NEGATIVE [facility] Comment on above: Performed By: #### R TOXR, UMAC, UMIC #### [place] [address] pH (U) 6.0 [pH] Normal 5.0-7.0 [facility] Comment on above: Performed By: #### R TOXR, UMAC, UMIC #### [place] [address] URINE HEMOGLOBIN Negative Normal NEGATIVE [facility] Comment on above: Performed By: #### R TOXR, UMAC, UMIC #### [place] [address] URINE KETONE Negative Normal NEGATIVE [facility] Comment on above: Performed By: #### R TOXR, UMAC, UMIC #### [place] [address] URINE LEUKOTEST LARGE Abnormal NEGATIVE [facility] Comment on above: Result Comment: Test ing performed at [place] [address] Performed By: #### R TOXR, UMAC, UMIC #### [place] [address] URINE NITRATES Negative Normal NEGATIVE [facility] Comment on above: Performed By: #### R TOXR, UMAC, UMIC #### [place] [address] URINE SPEC GRAVITY 1.010 Normal 1.010-1.025 [facility] Comment on above: Performed By: #### R TOXR, UMAC, UMIC #### [place] [address] URINE TOTAL PROTEIN Negative Normal NEGATIVE [facility] Comment on above: Performed By: #### R TOXR, UMAC, UMIC #### [place] [address] Urobilinogen Qn (U) 0.2 {Ita'U}/dL Normal 0.2-1.0 [facility] Comment on above: Performed By: #### R TOXR, UMAC, UMIC #### [place] [address] URINE MICROSCOPICon 02-12-20 21 BACTERIA TRACE Abnormal NEGATIVE [facility] Comment on above: Performed By: #### R TOXR, UMAC, UMIC #### [place] [address] CASTS NONE Normal NONE [facility] Comment on above: Performed By: #### R TOXR, UMAC, UMIC #### [place] [address] CRYSTAL NONE Normal [facility] Comment on above: Performed By: #### R TOXR, UMAC, UMIC #### [place] [address] Epithelial cells LM Ql (Urine sed) 20 TO 30 Normal [facility] Comment on above: Performed By: #### R TOXR, UMAC, UMIC #### [place] [address] Mucus Ql (Urine sed) TRACE Abnormal NEGATIVE [facility] Comment on above: Performed By: #### R TOXR, UMAC, UMIC #### [place] [address] URINE COMMENT POSSIBLY CONTAMINATE D SPECIMEN, CULTURE MUST BE ORDERED SEPARATELY IF DEEMED NECESSARY. Normal [facility] Comment on above: Result Comment: Test ing performed at [place] [address] Performed By: #### R TOXR, UMAC, UMIC #### [place] [address] URINE RBC'S Negative Normal NEGATIVE [facility] Comment on above: Performed By: #### R TOXR, UMAC, UMIC #### [place] [address] URINE WBC'S '5 TO 10 Normal NEGATIVE [facility] Comment on above: Performed By: #### R TOXR, UMAC, UMIC #### [place] [address] CHLAM/GC AMPLIFon 02-10-2021 CHLAMYDIA NUC. AMP Negative Normal [facility] Comment on above: Result Comment: Refe rence range: Negative GONOCOCCUS NUC. AMP Negative Normal [facility] Comment on above: Result Comment: Refe rence range: Negative PERFORMED AT [facility] AMNISUREon 02-09-2021 AMNISURE Negative Normal NEGATIVE [facility] Comment on above: Result Comment: NO A MNIOTIC FLUID DETECTED Testing performed at [place] [address] Performed By: #### R TOXR, UMAC, UMIC #### [place] [address] FERN TESTon 02-09-2021 FERN TEST Negative Normal [facility] Comment on above: Result Comment: Test ing performed at [place] [address] Performed By: #### R TOXR, UMAC, UMIC #### [place] [address] RAPID TOX SCREEN,URINE WITH REFLEXon 02-09-2021 AMPHETAMINE Negative Normal NEGATIVE [facility] Comment on above: Result Comment: <500 ng/ml CUTOFF Performed By: #### U MAC, RTOXR #### [place] [address] BARBITURATES Negative Normal NEGATIVE [facility] Comment on above: Result Comment: <200 ng/ml CUTOFF Performed By: #### U MAC, RTOXR #### [place] [address] BENZODIAZEPINES Negative Normal NEGATIVE [facility] Comment on above: Result Comment: <150 ng/ml CUTOFF Performed By: #### U MAC, RTOXR #### [place] [address] BUPRENORPHINE Negative Normal NEGATIVE [facility] Comment on above: Result Comment: <10 ng/ml CUTOFF Testing performed at [place] [address] Performed By: #### U MAC, RTOXR #### [place] [address] CANNABINOIDS Negative Normal NEGATIVE [facility] Comment on above: Result Comment: <50 ng/ml CUTOFF Performed By: #### U MAC, RTOXR #### [place] [address] COCAINE Negative Normal NEGATIVE [facility] Comment on above: Result Comment: <150 ng/ml CUTOFF Performed By: #### U MAC, RTOXR #### [place] [address] METHADONE Negative Normal NEGATIVE [facility] Comment on above: Result Comment: <200 ng/ml CUTOFF Performed By: #### U MAC, RTOXR #### [place] [address] METHAMPHETAMINE Negative Normal NEGATIVE [facility] Comment on above: Result Comment: <500 ng/ml CUTOFF Performed By: #### U MAC, RTOXR #### [place] [address] OPIATES Negative Normal NEGATIVE [facility] Comment on above: Result Comment: <100 ng/ml CUTOFF Performed By: #### U MAC, RTOXR #### [place] [address] OXYCODONE Negative Normal NEGATIVE [facility] Comment on above: Result Comment: <100 ng/ml CUTOFF Performed By: #### U MAC, RTOXR #### [place] [address] PHENCYCLIDINE Negative Normal NEGATIVE [facility] Comment on above: Result Comment: <25 ng/ml CUTOFF Performed By: #### U MAC, RTOXR #### Testing performed at [address] [address] PROPOXYPHENE Negative Normal NEGATIVE [facility] Comment on above: Result Comment: <300 ng/ml CUTOFF Performed By: #### U MAC, RTOXR #### Testing performed at [address] [address] TRICYCLIC ANTIDEPRESSANTS Negative Normal NEGATIVE [facility] Comment on above: Result Comment: <300 ng/ml CUTOFF Performed By: #### U MAC, RTOXR #### Testing performed at [address] [address] URINE MACROSCOPICon 02-10-20 Bilirubin Ql (U) Negative Normal NEGATIVE [facility] Comment on above: Performed By: #### U MAC, RTOXR #### Testing performed at [address] [address] Clarity (U) CLEAR Normal CLEAR [facility] Comment on above: Performed By: #### U MAC, RTOXR #### Testing performed at [address] [address] Color (U) YELLOW Normal YELLOW [facility] Comment on above: Performed By: #### U MAC, RTOXR #### Testing performed at [address] [place] [address] Glucose Ql (U) Negative Normal NEGATIVE [facility] Comment on above: Performed By: #### U MAC, RTOXR #### Testing performed at [address] [address] pH (U) 7.0 [pH] Normal 5.0-7.0 [facility] Comment on above: Performed By: #### U MAC, RTOXR #### Testing performed at [address] [address] URINE HEMOGLOBIN Negative Normal NEGATIVE [facility] Comment on above: Performed By: #### U MAC, RTOXR #### Testing performed at [address] [address] URINE KETONE Negative Normal NEGATIVE [facility] Comment on above: Performed By: #### U MAC, RTOXR #### [place] [address] URINE LEUKOTEST Negative Normal NEGATIVE [facility] Comment on above: Result Comment: Test ing performed at [place] [address] Performed By: #### U MAC, RTOXR #### [place] [address] URINE NITRATES Negative Normal NEGATIVE [facility] Comment on above: Performed By: #### U MAC, RTOXR #### [place] [address] URINE SPEC GRAVITY 1.020 Normal 1.010-1.025 [facility] Comment on above: Performed By: #### U MAC, RTOXR #### [place] [address] URINE TOTAL PROTEIN Negative Normal NEGATIVE [facility] Comment on above: Performed By: #### U MAC, RTOXR #### [place] [address] Urobilinogen Qn (U) 2.0 {Ita'U}/dL High 0.2-1.0 [facility] Comment on above: Performed By: #### U MAC, RTOXR #### [place] [address] AMNISURE ROMOrdered By: Pavithra Flower on 02-08-2021 [id number] lacental Ql (Vag fld) Negative NEGATIVE [facility] Comment on above: NO AMNIOTIC FLUID DE TECTED Testing performed at [address] FERN TEST VAGINAL FLUIDOrder ed By: Nehal Flower on 02-08-2021 Crystals LM Nom (Amn fld) Negative [facility] Comment on above: Testing performed at [address] RAPID TOX SCREEN WITH RELEX TO DRUGMCOrdered By: Nehal Flower on 02-08-2021 Amphetamine (U) [Mass/Vol] Negative NEGATIVE NG/ML [facility] [...] above: <10 ng/ml CUTOFF Testing performed at [place], [place] [address] Cannabinoids Screen Ql (U) Negative NEGATIVE NG/ML [...] phene Screen Ql (U) Negative NEGATIVE NG/ML [facility] Comment on above: <300 ng/ml CUTOFF Tricyclic antidepressants Screen Ql (U) Negative NEGATIVE NG/ML [facility] Comment on above: <300 ng/ml CUTOFF [facility] URINALYSIS, MACROOrdered By: Nehal Flower on 02-08-2021 Bilirubin Ql (U) Negative NEGATIVE [facility] Clarity (U) CLEAR CLEAR [facility] Color (U) YELLOW YELLOW [facility] Glucose Test strip (U) [Mass/Vol] Negative NEGATIVE mg/dl [facility] Hemoglobin Ql (U) Negative NEGATIVE [facility] Interpretation and review of laboratory results Abnormal [facility] Ketones (U) [Mass/Vol] Negative NEGAT DUNIA mg/dl [facility] Leukocyte esterase Test strip Ql (U) Negative NEGATIVE [facility] Comment on above: Testing performed at [place] [address] Nitrite Ql (U) Negative NEGATIVE [facility] pH (U) 7.0 [pH] [facility] Protein Ql (U) Negative NEGATIVE mg/dl [facility] Specific gravity (U) [Rel density] 1.020 [facility] Urobilinogen (U) [Mass/Vol] 2.0 mg/dL High [facility] Heart R-R duration USO rdered By: Mady Amor on 02-07-2021 Mady Amor MD 02/07/2021 12:14 PM Non-stress Test Gestational age: 38w2d Indication: Rule out labor Baseline: 135 bpm 15x15s: present Variability: moderate Decelerations: absent Contractions: q1-2min Duration >20 minutes Comments: REACTIVE 02/07/21 Mady Amor MD [facility] Mady Amor MD - 02/07/2021 10:20 AM EDT Non-stress Test Gestational age: 38w2d Indication: Rule out labor Baseline: 135 bpm 15x15s: present Variability: moderate Decelerations: absent Contractions: q1-2min Duration >20 minutes Comments: REACTIVE 02/07/21 Mady Amor MD [facility] NOVEL CORONAVIRUSon 02-08-20 21 NARRATIVE This test was perfor med using isothermal JIMMY and has been approved as Emergency Use Authorization (EUA) for the qualitative detection [id number] nucleic acid. Normal [facility] Comment on above: Result Comment: Test ing performed at [place] [address] Performed By: #### C OVID #### [place] [address] SARS-CoV-2 (COVID-19) RNA JIMMY+probe Ql (Unsp spec) Not detected Normal NOT DETECTED [facility] Comment on above: Result Comment: Nega [...] #### C OVID #### [place] [address] RAPID TOX SCREEN,URINE WITH REFLEXon 02-07-2021 AMPHETAMINE Negative Normal NEGATIVE [facility] Comment on above: Result Comment: <500 ng/ml CUTOFF Performed By: #### R TOXR, UMAC, UMIC #### [place] [address] BARBITURATES Negative Normal NEGATIVE [facility] Comment on above: Result Comment: <200 ng/ml CUTOFF Performed By: #### R TOXR, UMAC, UMIC #### [place] [address] BENZODIAZEPINES Negative Normal NEGATIVE [facility] Comment on above: Result Comment: <150 ng/ml CUTOFF Performed By: #### R TOXR, UMAC, UMIC #### [place] [address] BUPRENORPHINE Negative Normal NEGATIVE [facility] Comment on above: Result Comment: <10 ng/ml CUTOFF Testing performed at [place] [address] Performed By: #### R TOXR, UMAC, UMIC #### [place] [address] CANNABINOIDS Negative Normal NEGATIVE [facility] Comment on above: Result Comment: <50 ng/ml CUTOFF Performed By: #### R TOXR, UMAC, UMIC #### [place] [address] COCAINE Negative Normal NEGATIVE [facility] Comment on above: Result Comment: <150 ng/ml CUTOFF Performed By: #### R TOXR, UMAC, UMIC #### [place] [address] METHADONE Negative Normal NEGATIVE [facility] Comment on above: Result Comment: <200 ng/ml CUTOFF Performed By: #### R TOXR, UMAC, UMIC #### Testing performed at [address] [place] [address] METHAMPHETAMINE Negative Normal NEGATIVE [facility] Comment on above: Result Comment: <500 ng/ml CUTOFF Performed By: #### R TOXR, UMAC, UMIC #### [place] [address] OPIATES Negative Normal NEGATIVE [facility] Comment on above: Result Comment: <100 ng/ml CUTOFF Performed By: #### R TOXR, UMAC, UMIC #### [place] [address] OXYCODONE Negative Normal NEGATIVE [facility] Comment on above: Result Comment: <100 ng/ml CUTOFF Performed By: #### R TOXR, UMAC, UMIC #### [place] [address] PHENCYCLIDINE Negative Normal NEGATIVE [facility] Comment on above: Result Comment: <25 ng/ml CUTOFF Performed By: #### R TOXR, UMAC, UMIC #### [place] [address] PROPOXYPHENE Negative Normal NEGATIVE [facility] Comment on above: Result Comment: <300 ng/ml CUTOFF Performed By: #### R TOXR, UMAC, UMIC #### [place] [address] TRICYCLIC ANTIDEPRESSANTS Negative Normal NEGATIVE [facility] Comment on above: Result Comment: <300 ng/ml CUTOFF Performed By: #### R TOXR, UMAC, UMIC #### [place] [address] URINE MACROSCOPICon 02-08-20 21 Bilirubin Ql (U) Negative Normal NEGATIVE [facility] Comment on above: Performed By: #### R TOXR, UMAC, UMIC #### [place] [address] Clarity (U) CLEAR Normal CLEAR [facility] Comment on above: Performed By: #### R TOXR, UMAC, UMIC #### [place] [address] Color (U) YELLOW Normal YELLOW [facility] Comment on above: Performed By: #### R TOXR, UMAC, UMIC #### [place] [address] Glucose Ql (U) Negative Normal NEGATIVE [facility] Comment on above: Performed By: #### R TOXR, UMAC, UMIC #### [place] [address] pH (U) 7.0 [pH] Normal 5.0-7.0 [facility] Comment on above: Performed By: #### R TOXR, UMAC, UMIC #### [place] [address] URINE HEMOGLOBIN Negative Normal NEGATIVE [facility] Comment on above: Performed By: #### R TOXR, UMAC, UMIC #### [place] [address] URINE KETONE Negative Normal NEGATIVE [facility] Comment on above: Performed By: #### R TOXR, UMAC, UMIC #### [place] [address] URINE LEUKOTEST SMALL Abnormal NEGATIVE [facility] Comment on above: Result Comment: Test ing performed at [place] [address] Performed By: #### R TOXR, UMAC, UMIC #### [place] [address] URINE NITRATES Negative Normal NEGATIVE [facility] Comment on above: Performed By: #### R TOXR, UMAC, UMIC #### [place] [address] URINE SPEC GRAVITY 1.010 Normal 1.010-1.025 [facility] Comment on above: Performed By: #### R TOXR, UMAC, UMIC #### [place] [address] URINE TOTAL PROTEIN Negative Normal NEGATIVE [facility] Comment on above: Performed By: #### R TOXR, UMAC, UMIC #### [place] [address] Urobilinogen Qn (U) 0.2 {Ita'U}/dL Normal 0.2-1.0 [facility] Comment on above: Performed By: #### R TOXR, UMAC, UMIC #### [place] [address] URINE MICROSCOPICon 02-08-20 21 BACTERIA TRACE Abnormal NEGATIVE [facility] Comment on above: Performed By: #### R TOXR, UMAC, UMIC #### [place] [address] CASTS NONE Normal NONE [facility] Comment on above: Performed By: #### R TOXR, UMAC, UMIC #### [place] [address] CRYSTAL NONE Normal NONE [facility] Comment on above: Performed By: #### R TOXR, UMAC, UMIC #### [place] [address] Epithelial cells LM Ql (Urine sed) 1 TO 5 Normal [facility] Comment on above: Performed By: #### R TOXR, UMAC, UMIC #### [place] [address] Mucus Ql (Urine sed) 1+ Abnormal NEGATIVE [facility] Comment on above: Performed By: #### R TOXR, UMAC, UMIC #### [place] [address] URINE COMMENT CULTURE CRITERIA NOT MET, NO CULTURE PERFORMED. Normal [facility] Comment on above: Result Comment: Test ing performed at [place] [address] Performed By: #### R TOXR, UMAC, UMIC #### Testing performed at [facility] [address] [place] [address] URINE RBC'S Negative Normal NEGATIVE [facility] Comment on above: Performed By: #### R TOXR UMCLAUDIO, UMIC #### Testing performed at [facility] [address] [place] [address] URINE WBC'S 1 TO 5 Normal NEGATIVE [facility] Comment on above: Performed By: #### R TOXR, TAMANNA, CHAMP #### Testing performed at [facility] [address] [place] [address] NOVEL CORONAVIRUS LAB 1 - NA SOPHARYNGEALOrdered By: Nehal Flower on 02-06-2021 NARRATIVE -1 This test was perfor med using isothermal JIMMY and has been approved as Emergency Use Authorization (EUA) for the qualitative detection [id number] nucleic acid. [facility] Comment on above: Testing performed at [place] [address] SARS-CoV-2 (COVID-19) RNA JIMMY+probe Ql (Unsp spec) Not detected NOT DETECTED [facility] Comment on above: Negative results [...] patient is critically ill or clinically deteriorating. [facility] No Panel InformationOrdered By: Nehal Flower on 02-06-2021 Interpretation and review of laboratory results Abnormal [facility] RAPID TOX SCREEN WITH RELEX TO DRUGMCOrdered By: Nehal Flower on 02-06-2021 Amphetamine (U) [Mass/Vol] Negative NEGATIVE NG/ML [facility] Comment on above: <500 ng/ml CUTOFF Barbiturates Screen Ql (U) Negative NEGATIVE NG/ML [facility] Comment on above: <200 ng/ml CUTOFF Benzodiazepines Ql (U) Negative NEGAT DUNIA NG/ML [facility] Comment on above: <150 ng/ml CUTOFF Benzoylecgonine Ql (U) Negative NEGAT DUNIA NG/ML [facility] Comment on above: <150 ng/ml CUTOFF Buprenorphine Ql (U) Negative NEGATIV E NG/ML [facility] Comment on above: <10 ng/ml CUTOFF Testing performed at [place] [address] Cannabinoids Screen Ql (U) Negative NEGATIVE NG/ML [...] phene Screen Ql (U) Negative NEGATIVE NG/ML [facility] Comment on above: <300 ng/ml CUTOFF Tricyclic antidepressants Screen Ql (U) Negative NEGATIVE NG/ML [facility] Comment on above: <300 ng/ml CUTOFF [facility] URINALYSIS, MACROOrdered By: Nehal Flower on 02-06-2021 Bilirubin Ql (U) Negative NEGATIVE [facility] Clarity (U) CLEAR CLEAR [facility] Color (U) YELLOW YELLOW [facility] Glucose Test strip (U) [Mass/Vol] Negative NEGATIVE mg/dl [facility] Hemoglobin Ql (U) Negative NEGATIVE [facility] Ketones (U) [Mass/Vol] Negative NEGAT DUNIA mg/dl [facility] Leukocyte esterase Test strip Ql (U) SMALL Abnormal NEGATIVE [facility] Comment on above: Testing performed at [place] [id number] Nitrite Ql (U) Negative NEGATIVE [facility] pH (U) 7.0 [pH] [facility] Protein Ql (U) Negative NEGATIVE mg/dl [facility] Specific gravity (U) [Rel density] 1.010 [facility] Urobilinogen (U) [Mass/Vol] 0.2 mg/dL [facility] URINE MICROSCOPICOrdered By: Nehal Flower on 02-06-2021 Bacteria LM.HPF (Urine sed) [#/Area] TRACE Abnormal NEGATIVE [facility] Casts LM.LPF (Urine sed) [#/Area] NONE NONE /LPF [facility] Crystals LM Nom (Urine sed) NONE NONE [facility] Epithelial cells LM Ql (Urine sed) 1 TO 5 /HPF [facility] Mucus Ql (Urine sed) 1+ Abnormal NEGATIVE [facility] RBC LM.HPF (Urine sed) [#/Area] Negative NEGATIVE /HPF [facility] Urine sediment comments LM Linus (Urine sed) CULTURE CRITERIA NOT MET, NO CULTURE PERFORMED. [facility] Comment on above: Testing performed at [place], [place] [address] WBC LM.HPF (Urine sed) [#/Area] 1 TO 5 NEGATIVE /HPF [facility] STREP SCREEN GRP Bon 021 STREP SCREEN GRP B SPECIMEN DESCRIPTION VAGINAL/RECTAL CULTURE STREPTOCOCCUS AGALACTIAE SERO GROUP B * Result Note: THIS STREPTOCOCCI IS PRESUMED TO BE RESISTANT TO CLINDAMYCIN BASED ON THE DETECTION OF INDUCIBLE CLINDAMYCIN RESISTANCE. CLINDAMYCIN MAY STILL BE EFFECTIVE IN SOME PATIENTS. * * Result Note: Testing performed at [place], [place] [address] * REPORT STATUS 01/29/2021 * Result Note: FINAL * ORGANISM STREPTOCOCCUS AGALACTIAE SERO GROUP B * Result Note: STREPTOCOCCUS AGALACTIAE SERO GROUP B * METHOD JESI AMPICILLIN <=0.25 SUSCEPTIBLE CLINDAMYCIN RESISTANT ERYTHROMYCIN >=8 RESISTANT PENICILLIN G <=0.06 SUSCEPTIBLE TETRACYCLINE >=16 RESISTANT VANCOMYCIN 0.5 SUSCEPTIBLE LEVOFLOXACIN 1 SUSCEPTIBLE CEFOTAXIME <=0.12 SUSCEPTIBLE CEFTRIAXONE <=0.12 SUSCEPTIBLE INDUCIBLE CLINDAMYCIN RESISTANCE POSITIVE Normal [facility] Comment on above: Performed By: #### O BSC #### [place] [address] RPRon 11-29-2020 Reagin Ab RPR Ql (S) Non-Reactive Normal NONREACTIVE [facility] Comment on above: Result Comment: Test ing performed at [place] [address] Performed By: #### R TOXR, UMAC, UMIC #### [place] [address] CBCon 11-28-2020 ABSOLUTE BAS 0.0 10*3/uL Normal 0.0-0.2 [facility] Comment on above: Result Comment: Test ing performed at [place] [address] Performed By: #### R TOXR, UMAC, UMIC #### [place] [address] ABSOLUTE EOS 0.10 10*3/uL Normal 0.0-0.7 [facility] Comment on above: Performed By: #### R TOXR, UMAC, UMIC #### [place] [address] ABSOLUTE NEUTROPHIL COUNT 6.4 10*3/uL Normal 1.4-6.5 [facility] Comment on above: Performed By: #### R TOXR, UMAC, UMIC #### [place] [address] Basophils/100 WBC (Bld) 0.4 % Normal 0.0-2.0 [facility] Comment on above: Performed By: #### R TOXR, UMAC, UMIC #### [place] [address] DTYPE AUTO DIFF Normal [facility] Comment on above: Performed By: #### R TOXR, UMAC, UMIC #### [place] [address] Eosinophils/100 WBC (Bld) 0.9 % Normal 0.0-11.0 [facility] Comment on above: Performed By: #### R TOXR, UMAC, UMIC #### Testing performed at [address] [address] Lymphocytes (Bld) [#/Vol] 1.40 10*3/uL Normal 1.2-3.4 [facility] Comment on above: Performed By: #### R TOXR, UMAC, UMIC #### Testing performed at [address] [address] Lymphocytes/100 WBC (Bld) 16.8 % Low 20.0-55.0 [facility] Comment on above: Performed By: #### R TOXR, UMAC, UMIC #### Testing performed at [address] [address] Monocytes (Bld) [#/Vol] 0.4 10*3/uL Normal 0.0-0.7 [facility] [facility] Comment on above: Performed By: #### R TOXR, UMAC, UMIC #### Testing performed at [address] [address] Monocytes/100 WBC (Bld) 4.5 % Normal 0.0-10.0 [facility] Comment on above: Performed By: #### R TOXR, UMAC, UMIC #### Testing performed at [address] [address] Neutrophils/100 WBC (Bld) 77.4 % High 37.0-75.0 [facility] Comment on above: Performed By: #### R TOXR, UMAC, UMIC #### Testing performed at [address] [address] Erythrocyte distribution width (RBC) [Ratio] 14.0 % Normal 11.5-14.5 [facility] Comment on above: Performed By: #### R TOXR, UMAC, UMIC #### Testing performed at [address] [address] Hematocrit (Bld) [Volume fraction] 34.8 % Low 36.0-48.0 [facility] Comment on above: Performed By: #### R TOXR, UMAC, UMIC #### Testing performed at [address] [address] Hemoglobin (Bld) [Mass/Vol] 11.7 g/dL Low 12.0-16.0 [facility] Comment on above: Performed By: #### R TOXR, UMAC, UMIC #### Testing performed at [address] [address] MCH (RBC) [Entitic mass] 30.1 pg Normal 26.0-35.0 [facility] Comment on above: Performed By: #### R TOXR, UMAC, UMIC #### Testing performed at [address] [address] MCHC (RBC) [Mass/Vol] 33.6 g/dL Normal 27.0-37.0 [facility] Comment on above: Performed By: #### R TOXR, UMAC, UMIC #### Testing performed at [address] [address] MCV (RBC) [Entitic vol] 89.3 fL Normal 80.0-100.0 [facility] Comment on above: Performed By: #### R TOXR, UMAC, UMIC #### Testing performed at [address] [address] Platelet mean volume (Bld) [Entitic vol] 9.2 fL Normal 7.4-11.0 [facility] Comment on above: Performed By: #### R TOXR, UMAC, UMIC #### Testing performed at [address] [address] Platelets (Bld) [#/Vol] 169 10*3/uL Normal 130.0-400.0 [facility] Comment on above: Performed By: #### R TOXR, UMAC, UMIC #### Testing performed at [address] [address] RBC (Bld) [#/Vol] 3.89 10*6/uL Low 4.0-5.4 [facility] Comment on above: Performed By: #### R TOXR, UMAC, UMIC #### [place] [address] WBC (Bld) [#/Vol] 8.3 10*3/uL Normal 3.6-11.0 [facility] Comment on above: Performed By: #### R TOXR, UMAC, UMIC #### [place] [address] GLUCOSE POST LOADINGon 11-28 GLUCOSE POST LOADING 126 MG/DL Normal 65-140 [facility] Comment on above: Result Comment: Test ing performed at [place] [address] Performed By: #### R TOXR, UMAC, UMIC #### [place] [address] Glucose 1 Hr post 50 g glucose PO [Mass/Vol] 126 mg/dL [facility] Comment on above: Testing performed at [address] CBCon 11-25-2020 ABSOLUTE BAS 0.0 10*3/uL Normal 0.0-0.2 [facility] Comment on above: Result Comment: Test ing performed at [place] [address] Performed By: #### R TOXR, UMAC, UMIC #### [place] [address] ABSOLUTE EOS 0.10 10*3/uL Normal 0.0-0.7 [facility] Comment on above: Performed By: #### R TOXR, UMAC, UMIC #### [place] [address] ABSOLUTE NEUTROPHIL COUNT 7.7 10*3/uL High 1.4-6.5 [facility] Comment on above: Performed By: #### R TOXR, UMAC, UMIC #### [place] [address] Basophils/100 WBC (Bld) 0.4 % Normal 0.0-2.0 [facility] Comment on above: Performed By: #### R TOXR, UMAC, UMIC #### Testing performed at [address] [address] DTYPE AUTO DIFF Normal [facility] Comment on above: Performed By: #### R TOXR, UMAC, UMIC #### Testing performed at [address] [address] Eosinophils/100 WBC (Bld) 0.9 % Normal 0.0-11.0 [facility] Comment on above: Performed By: #### R TOXR, UMAC, UMIC #### Testing performed at [address] [address] Lymphocytes (Bld) [#/Vol] 2.20 10*3/uL Normal 1.2-3.4 [facility] Comment on above: Performed By: #### R TOXR, UMAC, UMIC #### Testing performed at [address] [address] Lymphocytes/100 WBC (Bld) 20.3 % Normal 20.0-55.0 [facility] Comment on above: Performed By: #### R TOXR, UMAC, UMIC #### Testing performed at [address] [address] Monocytes (Bld) [#/Vol] 0.7 10*3/uL Normal 0.0-0.7 [facility] Comment on above: Performed By: #### R TOXR, UMAC, UMIC #### Testing performed at [address] [address] Monocytes/100 WBC (Bld) 6.5 % Normal 0.0-10.0 [facility] Comment on above: Performed By: #### R TOXR, UMAC, UMIC #### Testing performed at [address] [address] Neutrophils/100 WBC (Bld) 71.9 % Normal 37.0-75.0 [facility] Comment on above: Performed By: #### R TOXR, UMAC, UMIC #### Testing performed at [place] [address] Erythrocyte distribution width (RBC) [Ratio] 13.4 % Normal 11.5-14.5 [facility] Comment on above: Performed By: #### R TOXR, UMAC, UMIC #### [place] [address] Hematocrit (Bld) [Volume fraction] 34.4 % Low 36.0-48.0 [facility] Comment on above: Performed By: #### R TOXR, UMAC, UMIC #### [place] [address] Hemoglobin (Bld) [Mass/Vol] 11.9 g/dL Low 12.0-16.0 [facility] Comment on above: Performed By: #### R TOXR, UMAC, UMIC #### [place] [address] MCH (RBC) [Entitic mass] 30.2 pg Normal 26.0-35.0 [facility] Comment on above: Performed By: #### R TOXR, UMAC, UMIC #### [place] [address] MCHC (RBC) [Mass/Vol] 34.7 g/dL Normal 27.0-37.0 [facility] Comment on above: Performed By: #### R TOXR, UMAC, UMIC #### [place] [address] MCV (RBC) [Entitic vol] 87.1 fL Normal 80.0-100.0 [facility] Comment on above: Performed By: #### R TOXR, UMAC, UMIC #### [place] [address] Platelet mean volume (Bld) [Entitic vol] 9.3 fL Normal 7.4-11.0 [facility] Comment on above: Result Comment: Test ing performed at [place] [address] Performed By: #### R TOXR, UMAC, UMIC #### Testing performed at [address] [address] Platelets (Bld) [#/Vol] 176 10*3/uL Normal 130.0-400.0 [facility] Comment on above: Performed By: #### R TOXR, UMAC, UMIC #### Testing performed at [place] [address] RBC (Bld) [#/Vol] 3.95 10*6/uL Low 4.0-5.4 [facility] Comment on above: Performed By: #### R TOXR, UMAC, UMIC #### Testing performed at [place] [address] WBC (Bld) [#/Vol] 10.8 10*3/uL Normal 3.6-11.0 [facility] Comment on above: Performed By: #### R TOXR, UMAC, UMIC #### Testing performed at [place] [address] CMP FASTINGon 11-25-2020 A:G RATIO 1.2 RATIO Low 1.3-2.2 [facility] Comment on above: Performed By: #### R TOXR, UMAC, UMIC #### [place] [address] ALBUMIN 3.4 G/dl Low 3.5-5.0 [facility] Comment on above: Performed By: #### R TOXR, UMAC, UMIC #### Testing performed at [place] [address] ALP [Catalytic activity/Vol] 64 U/L Normal 38-126 [facility] Comment on above: Performed By: #### R TOXR, UMAC, UMIC #### Testing performed at [place] [address] ALT [Catalytic activity/Vol] 30 U/L Normal <35 [facility] Comment on above: Performed By: #### R TOXR, UMAC, UMIC #### Testing performed at [place] [address] AST [Catalytic activity/Vol] 35 U/L Normal 14-36 [facility] Comment on above: Performed By: #### R TOXR, UMAC, UMIC #### [place] [address] Bilirubin [Mass/Vol] 0.2 mg/dL Normal 0.2-1.3 [facility] Comment on above: Performed By: #### R TOXR, UMAC, UMIC #### [place] [address] Calcium [Mass/Vol] 9.0 mg/dL Normal 8.4-10.2 [facility] Comment on above: Performed By: #### R TOXR, UMAC, UMIC #### [place] [address] Chloride [Moles/Vol] 103 mmol/L Normal 98-107 [facility] Comment on above: Result Comment: Ellie nieves note: Triglyceride levels of 600mg/dL or higher may positively bias chloride results by approximately 2.1 mmol Performed By: #### R TOXR, UMAC, UMIC #### [place] [address] CO2 [Moles/Vol] 24 mmol/L Normal 22-30 [facility] Comment on above: Performed By: #### R TOXR, UMAC, UMIC #### [place] [address] Creatinine [Mass/Vol] 0.50 mg/dL Low 0.7-1.2 [facility] Comment on above: Performed By: #### R TOXR, UMAC, UMIC #### [place] [address] EST. GFR, >60 Normal [facility] Comment on above: Performed By: #### R TOXR, UMAC, UMIC #### [place] [address] EST. GFR,Non >60 Normal [facility] Comment on above: Performed By: #### R TOXR, UMAC, UMIC #### Testing performed at [place] [address] GFR Information Average GFR for 20-2 9 years old = 116. 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 Kidney failure, GFR = <15. The GFR estimate is not adjusted for extreme body surface area or acute process, nor has it been validated for women or ethnic groups other than and . Testing performed at [place] [address] Performed By: #### R TOXR, UMAC, UMIC #### [place] [address] Glucose [Mass/Vol] 90 mg/dL Normal 70-100 [facility] Comment on above: Result Comment: NORMAL <100 mg/dL PREDIABETES 101-126 mg/dL DIABETES 126 mg/dL or higher Performed By: #### R TOXR, UMAC, UMIC #### Testing performed at [address] [address] Potassium [Moles/Vol] 3.2 mmol/L Low 3.5-5.1 [facility] Comment on above: Performed By: #### R TOXR, UMAC, UMIC #### Testing performed at [place] [address] Protein [Mass/Vol] 6.2 g/dL Low 6.3-8.2 [facility] Comment on above: Performed By: #### R TOXR, UMAC, UMIC #### Testing performed at [place] [address] Sodium [Moles/Vol] 131 mmol/L Low 137-145 [facility] Comment on above: Performed By: #### R TOXR, UMAC, UMIC #### Testing performed at [place] [address] Urea nitrogen [Mass/Vol] 8 mg/dL Normal 7-20 [facility] Comment on above: Performed By: #### R TOXR, UMAC, UMIC #### Testing performed at [place] [address] CT HEAD WITHOUT CONTRASTon 0 11-25-2020 CT [...] acute intracranial abnormality. 2. Minimal sinusitis. Normal [facility] URINE MACROSCOPICon 11-25-19 21 Bilirubin Ql (U) Negative Normal NEGATIVE [facility] Comment on above: Performed By: #### R TOXR UMCLAUDIO, UMIC #### [place] [address] Clarity (U) CLEAR Normal CLEAR [facility] Comment on above: Performed By: #### R TOXR UMAC, UMIC #### [place] [address] Color (U) YELLOW Normal YELLOW [facility] Comment on above: Performed By: #### R TOXR, UMAC, UMIC #### Testing performed at [address] [address] Glucose Ql (U) Negative Normal NEGATIVE [facility] Comment on above: Performed By: #### R TOXR, UMAC, UMIC #### Testing performed at [place] [address] pH (U) 7.0 [pH] Normal 5.0-7.0 [facility] Comment on above: Performed By: #### R TOXR, UMAC, UMIC #### [place] [address] URINE HEMOGLOBIN Negative Normal NEGATIVE [facility] Comment on above: Performed By: #### R TOXR, UMAC, UMIC #### [place] [address] URINE KETONE Negative Normal NEGATIVE [facility] Comment on above: Performed By: #### R TOXR, UMAC, UMIC #### [place] [address] URINE LEUKOTEST SMALL Abnormal NEGATIVE [facility] Comment on above: Result Comment: Test ing performed at [place] [address] Performed By: #### R TOXR, UMAC, UMIC #### [place] [address] URINE NITRATES Negative Normal NEGATIVE [facility] Comment on above: Performed By: #### R TOXR, UMAC, UMIC #### [place] [address] URINE SPEC GRAVITY 1.015 Normal 1.010-1.025 [facility] Comment on above: Performed By: #### R TOXR, UMAC, UMIC #### [place] [address] URINE TOTAL PROTEIN Negative Normal NEGATIVE [facility] Comment on above: Performed By: #### R TOXR, UMAC, UMIC #### [place] [address] Urobilinogen Qn (U) 0.2 {Ita'U}/dL Normal 0.2-1.0 [facility] Comment on above: Performed By: #### R TOXR, UMAC, UMIC #### [place] [address] URINE MICROSCOPICon 11-25-19 21 Bacteria LM.HPF (Urine sed) [#/Area] Negative Normal NEGATIVE [facility] Comment on above: Performed By: #### R TOXR, UMAC, UMIC #### Testing performed at [place] [address] CASTS NONE Normal NONE [facility] Comment on above: Performed By: #### R TOXR, UMAC, UMIC #### Testing performed at [place] [address] CRYSTAL NONE Normal NONE [facility] Comment on above: Performed By: #### R TOXR, UMAC, UMIC #### [place] [address] Epithelial cells LM Ql (Urine sed) 1 TO 5 Normal [facility] Comment on above: Performed By: #### R TOXR, UMAC, UMIC #### [place] [address] Mucus Ql (Urine sed) Negative Normal NEGATIVE [facility] Comment on above: Performed By: #### R TOXR, UMAC, UMIC #### [place] [address] URINE COMMENT REFLEX CULTURE PER ESTABLISHED CRITERIA. Normal [facility] Comment on above: Result Comment: Test ing performed at [place] [address] Performed By: #### R TOXR, UMAC, UMIC #### [place] [address] URINE RBC'S Negative Normal NEGATIVE [facility] Comment on above: Performed By: #### R TOXR, UMAC, UMIC #### [place] [address] URINE WBC'S 1 TO 5 Normal NEGATIVE [facility] Comment on above: Performed By: #### R TOXR, UMAC, UMIC #### [place] [address] CBC, EDIF, PLATELETon 2020 ABSOLUTE BASOPHIL COUNT 0.0 10*3/uL 0.0 - 0.2 10*3/uL [facility] Comment on above: Testing performed at [place] [address] Basophils/100 WBC (Bld) 0.4 % 0.0 - 2.0 % [facility] Differential cell count method Nom (Bld) AUTO DIFF % [facility] Eosinophils (Bld) [#/Vol] 0.10 10*3/uL 0.0 - 0.7 10*3/uL [facility] Eosinophils/100 WBC (Bld) 0.9 % 0.0 - 11.0 % [facility] Erythrocyte distribution width (RBC) [Ratio] 13.4 % 11.5 - 14.5 % [facility] Hematocrit (Bld) [Volume fraction] 34.4 % Low 36.0 - 48.0 % [facility] Hemoglobin (Bld) [Mass/Vol] 11.9 g/dL Low [facility] Interpretation and review of laboratory results Abnormal [facility] Lymphocytes (Bld) [#/Vol] 2.20 10*3/uL 1.2 - 3.4 10*3/uL [facility] Lymphocytes/100 WBC (Bld) 20.3 % 20.0 - 55.0 % [facility] MCH (RBC) [Entitic mass] 30.2 pg 26.0 - 35.0 PG [facility] MCHC (RBC) [Mass/Vol] 34.7 g/dL [facility] MCV (RBC) [Entitic vol] 87.1 fL [facility] Monocytes (Bld) [#/Vol] 0.7 10*3/uL 0.0 - 0.7 10*3/uL [facility] Monocytes/100 WBC (Bld) 6.5 % 0.0 - 10.0 % [facility] Neutrophils (Bld) [#/Vol] 7.7 10*3/uL High 1.4 - 6.5 10*3/uL [facility] Neutrophils/100 WBC (Bld) 71.9 % 37.0 - 75.0 % [facility] Platelet mean volume (Bld) [Entitic vol] 9.3 fL [facility] Platelets (Bld) [#/Vol] 176 10*3/uL 130. 0 - 400.0 10*3/uL [facility] RBC (Bld) [#/Vol] 3.95 10*6/uL Low 4.0 - 5.4 10*6/uL [facility] WBC (Bld) [#/Vol] 10.8 10*3/uL 3.6 - 11.0 10*3/uL [facility] COMPREHENSIVE METABOLIC PANE Charles 11-24-2020 Albumin [Mass/Vol] 3.4 G/dl Low 3.5 - 5.0 G/dl [facility] Albumin/Globulin [Mass ratio] 1.2 {ratio} Low [facility] ALP [Catalytic activity/Vol] 64 U/L [facility] ALT [Catalytic activity/Vol] 30 U/L <35 IU/L [facility] AST [Catalytic activity/Vol] 35 U/L [facility] Bilirubin [Mass/Vol] 0.2 mg/dL [facility] Calcium [Mass/Vol] 9.0 mg/dL [facility] Chloride [Moles/Vol] 103 mmol/L [facility] Comment on above: Please note: Triglyc eride levels of 600mg/dL or higher may positively bias chloride results by approximately 2.1 mmol CO2 [Moles/Vol] 24 mmol/L [facility] Creatinine [Mass/Vol] 0.50 mg/dL Low [facility] GFR/1.73 sq M predicted among blacks MDRD (S/P/Bld) [Vol rate/Area] mL/min/{1.73_m2} ml/min/1.73sq .m [facility] GFR/1.73 sq M predicted among non-blacks MDRD (S/P/Bld) [Vol rate/Area] mL/min/{1.73_m2} ml/min/1.73sq .m [facility] GFR/1.73 sq M predicted among non-blacks MDRD (S/P/Bld) [Vol rate/Area] Average GFR for 20-29 years old = 116. [facility] Comment on above: Chronic Kidney disea se, GFR = <60. Kidney failure, GFR = <15. The GFR estimate is not adjusted for extreme body surface area or acute process, nor has it been validated for women or ethnic groups other than and . Testing performed at [place], [place] [address] Glucose post fast [Mass/Vol] 90 mg/dL [facility] Comment on above: NORMAL <100 mg/dL PREDIABETES 101-126 mg/dL DIABETES 126 mg/dL or higher Interpretation and review of laboratory results Abnormal [facility] Potassium [Moles/Vol] 3.2 mmol/L Low [email or web address] Protein [Mass/Vol] 6.2 g/dL Low [facility] Sodium [Moles/Vol] 131 mmol/L Low [facility] Urea nitrogen [Mass/Vol] 8 mg/dL [facility] CT HEAD WITHOUT CONTRASTon 0 11-24-2020 IMPRESSION: 1. No ac gakona intracranial abnormality. 2. Minimal sinusitis. [facility] System User, Interfaces - 11/24/2020 11:10 PM [...] No acute intracranial abnormality. 2. Minimal sinusitis. [employer] [facility] CT BRAIN WITHOUT CONTRAST HISTORY: Headache, vision [...] AND CALVARIUM: Normal. EXTRACRANIAL SOFT TISSUES: Normal. [employer] GLUCOSE (POC DEVICE)on 11-24 Glucose [Mass/Vol] 105 mg/dL High [email or web address] Interpretation and review of laboratory results Abnormal [email or web address] [id number] [facility] Otheron 11-24-2020 [facility] POCT GLUCOSEon 11-24-2020 Glucose [Mass/Vol] 105 mg/dL High 70-100 [facility] CISSP [id number] Normal [facility] URINALYSIS, MACROon 11-24-19 21 Bilirubin Ql (U) Negative NEGATIVE [facility] Clarity (U) CLEAR CLEAR [facility] Color (U) YELLOW YELLOW [facility] Glucose Test strip (U) [Mass/Vol] Negative NEGATIVE mg/dl [facility] Hemoglobin Ql (U) Negative NEGATIVE [facility] Interpretation and review of laboratory results Abnormal [facility] Ketones (U) [Mass/Vol] Negative NEGAT DUNIA mg/dl [facility] Leukocyte esterase Test strip Ql (U) SMALL Abnormal NEGATIVE [facility] Comment on above: Testing performed at [place] [address] Nitrite Ql (U) Negative NEGATIVE [facility] pH (U) 7.0 [pH] [facility] Protein Ql (U) Negative NEGATIVE mg/dl [facility] Specific gravity (U) [Rel density] 1.015 [facility] Urobilinogen (U) [Mass/Vol] 0.2 [facility] URINE CULTUREon 11-24-2020 Bacteria identified Cx Nom (U) SPECIMEN DESCRIPTION RANDOM URINE UA DIPSTICK NITRITE NEGATIVE * Result Note: LEUKOCYTE POSITIVE * CULTURE NO GROWTH 2 DAYS * Result Note: Testing performed at [place] [address] * REPORT STATUS 11/26/2020 * Result Note: FINAL * Normal [facility] Comment on above: Performed By: #### R TOXR, UMAC, UMIC #### Testing performed at [address] [address] URINE MICROSCOPICon 11-24-19 21 Bacteria LM.HPF (Urine sed) [#/Area] Negative NEGATIVE [facility] Casts LM.LPF (Urine sed) [#/Area] NONE NONE /LPF [facility] Crystals LM Nom (Urine sed) NONE NONE [facility] Epithelial cells LM Ql (Urine sed) 1 TO 5 /HPF [facility] Mucus Ql (Urine sed) Negative NEGATIVE [facility] RBC LM.HPF (Urine sed) [#/Area] Negative NEGATIVE /HPF [facility] Urine sediment comments LM Linus (Urine sed) REFLEX CULTURE PER ESTABLISHED CRITERIA. [facility] Comment on above: Testing performed at [place] [address] WBC LM.HPF (Urine sed) [#/Area] 1 TO 5 NEGATIVE /HPF [facility] US OB ANATOMYon 10-24-2020 : 1. Single live IUP in Breech position. 2. Normal Anatomy seen. 3. PRANAY by US - 02/18/2021, which is consistent with gestational age. [facility] 20 WEEK OB ULTRASOUN D [...] previa noted. Normal fluid amount noted. FINAL [facility] NOVEL CORONAVIRUSon 09-02-20 20 NARRATIVE This test was perfor med using isothermal JIMMY and has been approved as Emergency Use Authorization (EUA) for the qualitative detection [id number] nucleic acid. Normal [facility] Comment on above: Result Comment: Test ing performed at [place] [address] Performed By: #### R TOXR, UMAC, UMIC #### Testing performed at [facility] [address] [place] [address] SARS-CoV-2 (COVID-19) RNA JIMMY+probe Ql (Unsp spec) Not detected Normal NOT DETECTED [facility] Comment on above: Result Comment: Nega [...] TOXR, UMAC, UMIC #### [place] [address] US OB DATING ABDOMINAL < 14W EEKSon 06-30-2020 : 1. Single live of 6 weeks and 4 days. 2. heart rate of 122 bpm. 3.US PRANAY 02/19/2021, which is inconsistent with PRANAY by LMP and should be changed. [facility] REFERRING PHYSICIAN: Dr. Madera TECHNOLOGIST: Dorina Felipe PROCEDURE DATE : 06/30/2020 INDICATIONS: Early gestational, dating LMP 04/15/2020, PRANAY 01/20/2021 PROCEDURE DETAILS A single live was noted within the uterus. heart rate of 122 bpm. The CRL measures .65 cm , 6 weeks 4 days. FINAL [employer] ABO/RH(D) TYPINGon 0 ABO and Rh group Nom (Bld ) Testing performed at [address] ABO and Rh group Nom (Bld ) Positive [employer] ANTIBODY SCREENon 06-24-2020 Blood group antibody screen Ql Negative [employer] EXPIRATION DATE 06/27/2020,2359 [place] EXPIRATION DATE Testing performed at [address] CBC, EDIF, PLATELETon 2019 ABSOLUTE BASOPHIL COUNT 0.0 10*3/uL 0 - 0.2 10*3/uL [email or web address] Comment on above: Testing performed at [place] [address] Basophils/100 WBC (Bld) 0.5 % 0 - 2 % [facility] Differential cell count method Nom (Bld) AUTO DIFF % [employer] Eosinophils (Bld) [#/Vol] 0.20 10*3/uL 0 - 0.7 10*3/uL [employer] Eosinophils/100 WBC (Bld) 2.9 % 0 - 11 % [employer] Erythrocyte distribution width (RBC) [Ratio] 12.6 % 11.5 - 14.5 % [employer] Hematocrit (Bld) [Volume fraction] 42.0 % 36 - 48 % [facility] Hemoglobin (Bld) [Mass/Vol] 14.1 g/dL [facility] Lymphocytes (Bld) [#/Vol] 1.60 10*3/uL 1.2 - 3.4 10*3/uL [facility] Lymphocytes/100 WBC (Bld) 22.8 % 20 - 55 % [facility] MCH (RBC) [Entitic mass] 28.8 pg 26 - 35 PG [facility] MCHC (RBC) [Mass/Vol] 33.5 g/dL [facility] MCV (RBC) [Entitic vol] 85.9 fL A [facility] Monocytes (Bld) [#/Vol] 0.4 10*3/uL 0 - 0.7 10*3/uL [facility] Monocytes/100 WBC (Bld) 5.6 % 0 - 10 % A [facility] Neutrophils (Bld) [#/Vol] 4.8 10*3/uL 1.4 - 6.5 10*3/uL [facility] Neutrophils/100 WBC (Bld) 68.2 % 37 - 75 % [facility] Platelet mean volume (Bld) [Entitic vol] 8.9 fL [facility] Platelets (Bld) [#/Vol] 229 10*3/uL 130 - 400 10*3/uL [facility] RBC (Bld) [#/Vol] 4.88 10*6/uL 4 - 5.4 10*6/uL [facility] WBC (Bld) [#/Vol] 7.1 10*3/uL 3.6 - 11 10*3/uL [facility] TOXICOLOGY DRUG SCREEN, URIN Jonh 06-24-2020 Amphetamine (U) [Mass/Vol] Negative NEGATIVE NG/ML [facility] Comment on above: <500 ng/ml CUTOFF Barbiturates Screen Ql (U) Negative NEGATIVE NG/ML [facility] Comment on above: <200 ng/ml CUTOFF Benzodiazepines Ql (U) Negative NEGAT DUNIA NG/ML [facility] Comment on above: <150 ng/ml CUTOFF Benzoylecgonine Ql (U) Negative NEGAT DUNIA NG/ML [facility] Comment on above: <150 ng/ml CUTOFF Buprenorphine Ql (U) Negative NEGATIV E NG/ML [facility] Comment on above: <10 ng/ml CUTOFF Testing performed at [place] [address] Cannabinoids Screen Ql (U) Negative NEGATIVE NG/ML [facility] Comment on above: <50 ng/ml CUTOFF Methadone Screen Ql (U) Negative NEGA TIVE NG/ML [facility] Comment on above: <200 ng/ml CUTOFF Methamphetamine (U) [Mass/Vol] Negative NEGATIVE NG/ML [facility] Comment on above: <500 ng/ml CUTOFF Opiates Screen Ql (U) Negative NEGATI VE NG/ML [facility] Comment on above: <100 ng/ml CUTOFF Oxycodone Ql (U) Negative NEGATIVE NG/ML [facility] Comment on above: <100 ng/ml CUTOFF Phencyclidine Screen method >25 ng/mL Ql (U) Negative NEGATIVE NG/ML [facility] Comment on above: <25 ng/ml CUTOFF Propoxyphene + Norpropoxyphene Screen Ql (U) Negative NEGATIVE NG/ML [facility] Comment on above: <300 ng/ml CUTOFF Tricyclic antidepressants Screen Ql (U) Negative NEGATIVE NG/ML [facility] Comment on above: <300 ng/ml CUTOFF POCT URINE PREGNANCYon 06-14 HCG.beta subunit Qn Positive [facility] Interpretation and review of laboratory results Normal [facility] HCG QUALITATIVE, URINEon HCG ( test) Ql (U) Negative [facility] Comment on above: Testing performed at [place] [address] NOVEL CORONAVIRUS LAB 1 - NA SOPHARYNGEALon 04-28-2020 NARRATIVE -1 This test was perfor med using real time PCR and has been approved as Emergency Use Authorization (EUA) for the qualitative detection of SARS-CoV-2 nucleic acid. [facility] Comment on above: Testing performed at [place] [address] SARS COV 2 RNA, QL REAL TIME RT PCR NOT DETECTED NOT DETECTED [facility] Comment on above: Negative results do not [...] ABS, IGG 256.0 AU/mL Normal Immune >10.9 [facility] Comment on above: Result Comment: (NOT E) Negative <9.0 Equivocal 9.0 - 10.9 Positive >10.9 A positive result generally indicates past exposure to Mumps virus or previous vaccination. PERFORMED AT [facility] Performed By: #### L MMR #### [place] [address] RUBEOLA AB, IGG >300.0 Normal Immune >16.4 [facility] Comment on above: Result Comment: (NOT E) Negative <13.5 Equivocal 13.5 - 16.4 Positive >16.4 Presence of antibodies to Rubeola is presumptive evidence of immunity except when acute infection is suspected. Performed By: #### L MMR #### [place] [address] RUBELLA AB, IGG 5.50 index Normal Immune >0.99 [facility] Comment on above: Result Comment: (NOT E) Non-immune <0.90 Equivocal 0.90 - 0.99 Immune >0.99 Performed By: #### L MMR #### [place] [address] FAX REQUESTon 09-09-2019 FAX TO [facility] Comment on above: Performed By: #### L MMR #### [place] [address] HEP B SURFACE ABon 9 HEP B SURFACE AB Negative Abnormal POSITIVE [facility] Comment on above: Result Comment: Clinical Interpretation of Immune Status Negative: patient is considered to be not immune to infection with HBV Intermediate: unable to determine if anti-HBs is present at levels consistent with immunity Positive: anti-HBs detected, patient is considered to be immune to infection with HBV Performed By: #### L MMR #### Testing performed at [facility] [place] [address] [place] [address] [place] [address] HEP C ABon 09-09-2019 HEP C AB Negative Normal NEGATIVE [facility] Comment on above: Performed By: #### L MMR #### Testing performed at [facility] [address] [place] [address] [place] [address] O & P Exam, Routineon 2018 Ova/Para Exam Rt Final report Normal [facility] Comment on above: Order Comment: Order Added by Discern Expert. Result Comment: Thes e results were obtained using wet preparation(s) and trichrome stained smear. This test does not include testing for Cryptosporidium parvum, Cyclospora, or Microsporidia. No ova, cysts, or parasites seen. One negative specimen does not rule out the possibility of a parasitic infection. Performed At: [facility] [address] [place], [place] [id number] Corby Caballero PhD Ph:[phone] Performed By: #### 2 [id number] #### [facility] Rem[facility] [address] [place] [address] CHARLES Teston 12-22-2018 CHARLES Test Negative Normal Negative [facility] Comment on above: Result Comment: spec imen found in surgery [facility] 12/22/2018 14:07:47 EDT; never brought to lab Performed By: #### 2 [id number] #### T[facility]ARA Rem[facility]emo [address] [place] [address] GI Panelon 12-19-2018 Adenovirus F40/41 Not Detected Normal [facility] Comment on above: Order Comment: Order Added by Discern Expert. Performed By: #### 2 [id number] #### T[facility]ARA Rem[facility]emo [address] [place] [address] Astrovirus Not Detected Normal [facility] Comment on above: Order Comment: Order Added by Discern Expert. Performed By: #### 2 [id number] #### [facility]ARA Rem[facility] [address] [place] [address] Campylobacter Not Detected Normal [facility] Comment on above: Order Comment: Order Added by Discern Expert. Performed By: #### 2 [id number] #### T[facility]ARA Rem[facility]emo [address] [place] [address] Cholesterol mass conc Not Detected Normal [facility] Comment on above: Order Comment: Order Added by Discern Expert. Performed By: #### 2 [id number] #### TAMARA Rem[facility]emo [address] [place] [address] Clostridium difficile toxin A/B Not Detected Normal [facility] Comment on above: Order Comment: Order Added by Discern Expert. Performed By: #### 2 [id number] #### T[facility]ARA Rem[facility]emo [address] [place] [address] Cryptosporidium Not Detected Normal [facility] Comment on above: Order Comment: Order Added by Discern Expert. Performed By: #### 2 [id number] #### TAMARA Rem[facility]emo [address] [place] [address] Cyclospora cayetanensis Not Detected Normal [facility] Comment on above: Order Comment: Order Added by Discern Expert. Performed By: #### 2 [id number] #### TAMARA Rem[facility]emo [address] [place] [address] E coli 0157 Not Detected Normal [facility] Comment on above: Order Comment: Order Added by Discern Expert. Performed By: #### 2 [id number] #### TAMARA Rem[facility]emo [address] [place] [address] Entamoeba histolytica Not Detected Normal [facility] Comment on above: Order Comment: Order Added by Discern Expert. Performed By: #### 2 [id number] #### T[facility]ARA Rem[facility]emo [address] [place] [address] Enteroaggregatvie E coli (EAEC) Not Detected Normal [facility] Comment on above: Order Comment: Order Added by Discern Expert. Performed By: #### 2 [id number] #### T[facility]ARA Rem[facility]emo [address] [place] [address] Enteropathogenic E Coli (EPEC) Not Detected Normal [facility] Comment on above: Order Comment: Order Added by Discern Expert. Performed By: #### 2 [id number] #### T[facility]ARA Rem[facility]emo [address] [place] [address] Enterotoxigenci E coli (ETEC)lt/st Not Detected Normal [facility] Comment on above: Order Comment: Order Added by Discern Expert. Performed By: #### 2 [id number] #### TAMARA RemHemo [address] [place] [address] Giardia lamblia Not Detected Normal [facility] Comment on above: Order Comment: Order Added by Discern Expert. Performed By: #### 2 [id number] #### T[facility]ARA Rem[facility]emo [address] [place] [address] Norovirus GI/GII Not Detected Normal [facility] Comment on above: Order Comment: Order Added by Discern Expert. Performed By: #### 2 [id number] #### T[facility]ARA Rem[facility]emo [address] [place] [address] Plesiomonas shigelloides Not Detected Normal [facility] Comment on above: Order Comment: Order Added by Discern Expert. Performed By: #### 2 809176 #### T[facility]ARA Rem[facility]emo [address] [place] [address] Protein mass conc Not Detected Normal [facility] Comment on above: Order Comment: Order Added by Discern Expert. Performed By: #### 2 729193 #### [facility] Rem[facility] [address] [place] [address] Rotavirus A Not Detected Normal [facility] Comment on above: Order [...] of gastrointestinal infection. Performed By: #### 2 [id number] #### TAMARA Rem[facility]emo [address] [place] [address] Salmonella Not Detected Normal [facility] Comment on above: Order Comment: Order Added by Discern Expert. Performed By: #### 2 761404 #### T[facility]ARA Rem[facility]emo [address] [place] [address] Sapovirus Not Detected Normal [facility] Comment on above: Order Comment: Order Added by Discern Expert. Performed By: #### 2 605516 #### TAMARA Rem[facility]emo [address] [place] [address] Shigella/Enteroinvasive E coli (EIEC) Not Detected Normal [facility] Comment on above: Order Comment: Order Added by Discern Expert. Performed By: #### 2 019279 #### TAMARA [facility]ocho[facility]emo [address] [place] [address] Vibrio Not Detected Normal [facility] Comment on above: Order Comment: Order Added by Discern Expert. Performed By: #### 2 735083 #### TAMARA [facility]ocho[facility] [address] [place] [address] Yersinia enterocolitica Not Detected Normal [facility] Comment on above: Order Comment: Order Added by Discern Expert. Performed By: #### 2 356710 #### TAMARA [facility]ocho[facility]emo [address] [place] [address] XR Upper GI w/ Air Contrast + KUBon 12-17-2018 XR Upper GI w/ Air Contrast + KUB Exam Date/Time: 12/17/2018 09:43 EDT Reason for Exam: Other (please specify) Report STUDY: Double-contrast upper GI series with small-bowel follow-through dated 12/17/2018. INDICATION: Pain. COMPARISON: None. ACCESSION NUMBER(S): [id number] ORDERING CLINICIAN: Love Barnhart TECHNIQUE: [place] Clerk radiograph of the abdomen was obtained. Patient [...] by: Krystian Lepe MD Technologist: TRD Normal [facility] Amylaseon 12-16-2018 Amylase enzyme act/vol 51 Int._Unit/L Normal 29-103 [facility] Comment on above: Performed By: #### 2 [id number] #### [facility] [employer] [address] [place] [address] Auto Diffon 12-16-2018 Basophils #/vol (Bld) 0.0 E3/mcL Normal 0.0-0.2 [facility] Comment on above: Order Comment: Order Added by Discern Expert. Performed By: #### 2 [id number] #### TAMARA RemHemo [address] [place] [address] Basophils/100 WBC (Bld) 0.6 % Normal 0.0-2.0 [facility] Comment on above: Order Comment: Order Added by Discern Expert. Performed By: #### 2 [id number] #### T[facility]ARA Rem[facility]emo [address] [place] [address] Eos Absolute 0.1 E3/mcL Normal 0.0-0.7 [facility] Comment on above: Order Comment: Order Added by Discern Expert. Performed By: #### 2 924816 #### [facility] [address] [place] [address] Eosinophils/100 WBC (Bld) 0.9 % Normal 0.0-11.0 [facility] Comment on above: Order Comment: Order Added by Discern Expert. Performed By: #### 2 [id number] #### T[facility]ARA Rem[facility]emo [address] [place] [address] Lymphocytes #/vol (Bld) 1.7 E3/mcL Normal 1.2-3.4 [facility] Comment on above: Order Comment: Order Added by Discern Expert. Performed By: #### 2 001589 #### T[facility]ARA Rem[facility]emo [address] [place] [address] Lymphocytes/100 WBC (Bld) 28.5 % Normal 20.0-55.0 [facility] Comment on above: Order Comment: Order Added by Discern Expert. Performed By: #### 2 [id number] #### T[facility]ARA Rem[facility]emo [address] [place] [address] Real Absolute 0.4 E3/mcL Normal 0.0-0.7 [facility] Comment on above: Order Comment: Order Added by Discern Expert. Performed By: #### 2 046378 #### TAMARA [facility] [address] [place] [address] Monocytes/100 WBC (Bld) 6.6 % Normal 0.0-10.0 [facility] Comment on above: Order Comment: Order Added by Discern Expert. Performed By: #### 2 716829 #### T[facility]ARA Rem[facility]emo [address] [place] [address] Neutro Absolute 3.8 E3/mcL Normal 1.4-6.5 [facility] Comment on above: Order Comment: Order Added by Discern Expert. Performed By: #### 2 409778 #### TAMARA RemHemo [facility] [place] [address] Neutro Auto 63.4 % Normal 37.0-75.0 [facility] Comment on above: Order Comment: Order Added by Discern Expert. Performed By: #### 2 325216 #### T[facility]ARA Rem[facility]emo [address] [place] [address] BMPon 12-16-2018 Anion gap molar conc 13 mmol/L Normal 10-20 [facility] Comment on above: Performed By: #### 2 107805 #### T[facility] [employer] [address] [place] [address] Calcium mass conc 9.3 mg/dL Normal 8.6-10.3 [facility] Comment on above: Performed By: #### 2 239966 #### [facility] [employer] [address] [place] [address] Chloride molar conc 105 mmol/L Normal 98-107 [facility] Comment on above: Performed By: #### 2 [id number] #### [facility] [employer] [address] [place] [address] CO2 molar conc 23.0 mmol/L Normal 21.0-32.0 [facility] Comment on above: Performed By: #### 2 425563 #### [facility] [employer] [address] [place] [address] Creatinine mass conc 0.8 mg/dL Normal 0.5-1.1 [facility] Comment on above: Performed By: #### 2 027108 #### [facility] [employer] [address] [place] [address] Glucose mass conc 66 mg/dL Low 70-99 [facility] Comment on above: Performed By: #### 2 480294 #### [facility] [employer] [address] [place] [address] Potassium molar conc 3.8 mmol/L Normal 3.5-5.3 [facility] Comment on above: Performed By: #### 2 943133 #### [facility] [employer] [address] [place] [address] Sodium molar conc 138 mmol/L Normal 136-145 [facility] Comment on above: Performed By: #### 2 164842 #### [facility] [employer] [address] [place] [address] Urea nitrogen mass conc 11 mg/dL Normal 6-23 [facility] Comment on above: Performed By: #### 2 423991 #### [facility] [employer] [address] [place], [place] [address] Urea nitrogen/Creatinine mass ratio 13.8 ratio Normal 5.4-30.0 [facility] Comment on above: Performed By: #### 2 271008 #### [facility] [employer] [address] [place] [address] CBC w/ Auto Diffon 9 Erythrocyte distribution width Ratio (RBC) 12.5 % Normal 11.5-14.5 [facility] Comment on above: Performed By: #### 2 691857 #### [facility]ARA Rem[facility]emo [address] [place] [address] Hematocrit Volume Fraction (Bld) 42.1 % Normal 36.0-48.0 [facility] Comment on above: Performed By: #### 2 452520 #### TAMARA RemHemo [facility] [place] [address] Hemoglobin mass conc (Bld) 14.2 g/dL Normal 12.0-16.0 [facility] Comment on above: Performed By: #### 2 414311 #### T[facility]ARA Rem[facility]emo [address] [place], [place] [address] MCH Entitic mass (RBC) 29.7 pg Normal 27.0-31.0 [facility] Comment on above: Performed By: #### 2 678500 #### TAMARA RemHemo [address] [place] [address] MCHC mass conc (RBC) 33.7 g/dL Normal 33.0-37.0 [facility] Comment on above: Performed By: #### 2 837729 #### T[facility]ARA Rem[facility]emo [address] [place] [address] MCV Entitic volume (RBC) 88.2 fL Normal 78.0-100.0 [facility] Comment on above: Performed By: #### 2 335603 #### TAMARA MorochoHemo [address] [place] [address] Platelet mean volume Entitic volume (Bld) 9.1 fL Normal 7.4-11.0 [facility] Comment on above: Performed By: #### 2 589599 #### T[facility]ARA RemHemo [address] [place] [address] Platelets #/vol (Bld) 200 E3/mcL Normal 130-400 [facility] Comment on above: Performed By: #### 2 341710 #### T[facility]ARA Rem[facility]emo [address] [place] [address] RBC #/vol (Bld) 4.77 E6/mcL Normal 3.90-5.40 [facility] Comment on above: Performed By: #### 2 477323 #### T[facility]ARA RemHemo [address] [place] [address] WBC #/vol (Bld) 6.0 E3/mcL Normal 3.6-11.0 [facility] Comment on above: Performed By: #### 2 857902 #### TAMARA RemHemo [facility] [place] [address] CRPon 12-16-2018 CRP mass conc 1.06 mg/dL High 0.00-1.00 [facility] Comment on above: Performed By: #### 2 633378 #### [facility] [employer] [address] [place], [place] [address] CT Abdomen/Pelvis w/ Contras ton 12-16-2018 CT Abdomen/Pelvis w/ Contrast Exam Date/Time: 12/16/2018 16:14 EDT Reason for Exam: Abdominal Pain;Other (please specify) Report STUDY: CT Abdomen/Pelvis w/ Contrast; 12/16/2018 4:14 pm INDICATION: Other (please specify). Epigastric pain for 6 days. Pain when swallowing. Recent international travel. COMPARISON: None. ACCESSION NUMBER(S): [id number] ORDERING CLINICIAN: Grant Qureshi TECHNIQUE: Contiguous axial [...] by: Sagar Blue MD Technologist: AM, Normal [facility] Hep Func Panelon 12-16-2018 Albumin mass conc 4.4 g/dL Normal 3.4-5.0 [facility] Comment on above: Performed By: #### 2 [id number] #### [facility] [employer] [address] [place] [address] Albumin/Globulin mass ratio 1.8 {ratio} Normal 1.1-1.9 [facility] Comment on above: Performed By: #### 2 715434 #### [facility] [employer] [address] [place] [address] Alk Phos 40 Int._Unit/L Normal 33-110 [facility] Comment on above: Performed By: #### 2 092746 #### [facility] [employer] [address] [place] [address] ALT enzyme act/vol 12 Int._Unit/L Normal 7-45 [facility] Comment on above: Performed By: #### 2 [id number] #### [facility] [employer] [address] [place] [address] AST enzyme act/vol 15 Int._Unit/L Normal 9-39 [facility] Comment on above: Performed By: #### 2 914532 #### [facility] [employer] [address] [place] [address] Bili Direct 0.17 mg/dL Normal 0.00-0.30 [facility] Comment on above: Performed By: #### 2 [id number] #### [facility] [employer] [address] [place] [address] Bili Indirect 0.47 mg/dL Normal [facility] Comment on above: Result Comment: No e stablished ranges available for the indirect bilirubin Performed By: #### 2 536199 #### [facility] [employer] [address] [place] [address] Bili Total 0.64 mg/dL Normal 0.00-1.20 [facility] Comment on above: Performed By: #### 2 637054 #### [facility] [employer] [address] [place] [address] Globulin mass conc (S) 3.0 g/dL Normal 2.0-4.0 [facility] Comment on above: Performed By: #### 2 484127 #### [facility] [employer] [address] [place] [address] Protein mass conc 6.9 g/dL Normal 6.4-8.2 [facility] Comment on above: Performed By: #### 2 717054 #### [facility] [employer] [address] [place] [address] Lipase Levelon 12-16-2018 Lipase Lvl 21 Int._Unit/L Normal 9-82 [facility] Comment on above: Performed By: #### 2 806792 #### [facility] [employer] [address] [place] [address] U BhCG Qlton 12-16-2018 HCG.beta subunit Qn Negative Normal Neg [facility] Comment on above: Performed By: #### 2 500135 #### TAMARA Urinalysis Manual Subsection [address] [place] [address] UA Completeon 12-16-2018 Color Nom (U) Yellow Normal Yellow [facility] Comment on above: Performed By: #### 8 [id number] #### TAMARA Urinalysis Automated Subsection [address] [place] [address] Glucose mass conc (U) Negative Normal Negative [facility] Comment on above: Performed By: #### 8 [id number] #### TAMARA Urinalysis Automated Subsection [address] [place] [address] Ketones Ql (U) 2+ Abnormal Negative [facility] Comment on above: Performed By: #### 8 [id number] #### TAMARA Urinalysis Automated Subsection [address] [place] [address] RBC #/vol (U) 5-10 Abnormal 0-3 [facility] Comment on above: Performed By: #### 8 [id number] #### TAMARA Urinalysis Automated Subsection [address] [place] [address] UA Blood 1+ Abnormal Negative [facility] Comment on above: Performed By: #### 8 [id number] #### TAMARA Urinalysis Automated Subsection [address] [place] [address] UA Clarity Clear Normal Clear [facility] Comment on above: Performed By: #### 8 [id number] #### TAMARA Urinalysis Automated Subsection [facility] [place] [address] UA Leuk Est Negative Normal Negative [facility] Comment on above: Performed By: #### 8 [id number] #### TAMARA Urinalysis Automated Subsection [address] [place] [address] UA Mucous Trace Abnormal Trace [facility] Comment on above: Performed By: #### 8 [id number] #### TAMARA Urinalysis Automated Subsection [address] [place] [address] UA Nitrite Negative Normal Negative [facility] Comment on above: Performed By: #### 8 [id number] #### TAMARA Urinalysis Automated Subsection [address] [place] [address] UA pH 5.0 Normal 4.6-8.0 [facility] Comment on above: Performed By: #### 8 [id number] #### TAMARA Urinalysis Automated Subsection [address] [place] [address] UA Protein Negative Normal Negative [facility] Comment on above: Performed By: #### 8 [id number] #### T[facility]ARA Urinalysis Automated Subsection [address] [place] [address] UA Spec Grav 1.024 Normal 1.003-1.030 [facility] Comment on above: Performed By: #### 8 [id number] #### TAMARA Urinalysis Automated Subsection [address] [place] [address] UA Squam Epithelial 5-10 Abnormal 0-5 [facility] Comment on above: Performed By: #### 8 [id number] #### TAMARA Urinalysis Automated Subsection [address] [place] [address] UA Urobilinogen Negative Normal [facility] Comment on above: Result Comment: Due to a manufacturing issue, low positive urobilinogen results may be fasely positive. Correlate with urine bilirubin and additional clinical/laboratory findings to assess the risk of hemolytic anemia or liver disease. If clinically indicated, repeat testing with an alternate method is available by contacting the laboratory within 24 hours. Performed By: #### 8 [id number] #### TAMARA Urinalysis Automated Subsection [address] [place] [address] Urobilinogen Qn (U) Negative Normal Negative [facility] Comment on above: Performed By: #### 8 [id number] #### TAMARA Urinalysis Automated [address] [place] [address] eGFRon 12-16-2018 GFR/1.73 sq M predicted among non-blacks MDRD vol rate/area (S/P/Bld) mL/min/{1.73_m2} Normal [facility] Comment on above: Order Comment: Order added by Discern Expert. Performed By: #### [id number] #### [facility] [address] [place] [address] Beta HCG Quant, EDon 019 Beta HCG Quant, ED <0.6 Normal <5.0 [facility] Comment on above: Result Comment: NEGA TIVE Performed By: #### H CGED #### [facility] [address] [place] [address] CBC and Differentialon 12-15 Abs Baso 0.03 k/uL Normal <0.11 [facility] Comment on above: Performed By: #### C BCDIF, CMP, LIPA #### [facility] [address] [place] [address] Abs Real 0.49 k/uL Normal <0.87 [facility] Comment on above: Performed By: #### C BCDIF, CMP, LIPA #### [facility] [address] [place], [place] [address] Abs Neut 4.23 k/uL Normal 1.45-7.50 [facility] Comment on above: Performed By: #### C BCDIF, CMP, LIPA #### [facility] [address] [place], [place] [address] Absolute nRBC <0.01 Normal <0.01 [facility] Comment on above: Performed By: #### C BCDIF, CMP, LIPA #### [facility] [address] [place] [address] Basophils/100 WBC (Bld) 0.4 % Normal C [facility] Comment on above: Performed By: #### C BCDIF, CMP, LIPA #### [place] [id number] [place] [phone] DTYPE Auto Diff Normal [facility] Comment on above: Performed By: #### C BCDIF, CMP, LIPA #### [place] [id number] [phone] Eosinophils #/vol (Bld) 0.09 10*3/uL Normal <0.46 [facility] Comment on above: Performed By: #### C BCDIF, CMP, LIPA #### [place] [phone] Eosinophils/100 WBC (Bld) 1.3 % Normal [facility] Comment on above: Performed By: #### C BCDIF, CMP, LIPA #### [place] [phone] Erythrocyte distribution width Ratio (RBC) 12.1 % Normal 11.5-15.0 [facility] Comment on above: Performed By: #### C BCDIF, CMP, LIPA #### [place] [address] [place] [phone] Hematocrit Volume Fraction (Bld) 37.7 % Normal 36.0-46.0 [facility] Comment on above: Performed By: #### C BCDIF, CMP, LIPA #### [place] [phone] Hemoglobin mass conc (Bld) 13.0 g/dL Normal 11.5-15.5 [facility] Comment on above: Performed By: #### C BCDIF, CMP, LIPA #### [place] [phone] Lymphocytes #/vol (Bld) 2.16 10*3/uL Normal 1.00-4.00 [facility] Comment on above: Performed By: #### C BCDIF, CMP, LIPA #### [facility] [address] [place], [place] [address] Lymphocytes/100 WBC (Bld) 30.8 % Normal [facility] Comment on above: Performed By: #### C BCDIF, CMP, LIPA #### [facility] [address] [place] [address] MCH Entitic mass (RBC) 29.5 pG Normal 26.0-34.0 [facility] Comment on above: Performed By: #### C BCDIF, CMP, LIPA #### [place] [phone] [place] [address] MCHC mass conc (RBC) 34.5 g/dL Normal 30.5-36.0 [facility] Comment on above: Performed By: #### C BCDIF, CMP, LIPA #### [place] [address] MCV Entitic volume (RBC) 85.7 fL Normal 80.0-100.0 [facility] Comment on above: Performed By: #### C BCDIF, CMP, LIPA #### [place] [address] Monocytes/100 WBC (Bld) 7.0 % Normal [facility] Comment on above: Performed By: #### C BCDIF, CMP, LIPA #### [facility] [address] [place] [phone] Neutrophils/100 WBC (Bld) 60.5 % Normal [facility] Comment on above: Performed By: #### C BCDIF, CMP, LIPA #### [place] [address] [place] [address] NRBCs 0.0 /[address] [facility] Comment on above: Performed By: #### C BCDIF, CMP, LIPA #### [place] [phone] Platelet mean volume Entitic volume (Bld) 10.6 fL Normal 9.0-12.7 [facility] Comment on above: Performed By: #### C BCDIF, CMP, LIPA #### [place] [address] [place], [place] [address] Platelets #/vol (Bld) 217 10*3/uL Normal 150-400 [facility] Comment on above: Performed By: #### C BCDIF, CMP, LIPA #### [place] [address] RBC #/vol (Bld) 4.40 10*6/uL Normal 3.90-5.20 [facility] Comment on above: Performed By: #### C BCDIF, CMP, LIPA #### [place] [address] WBC #/vol (Bld) 7.02 10*3/uL Normal 3.70-11.00 [facility] Comment on above: Performed By: #### C BCDIF, CMP, LIPA #### [place] [address] Comp Metabolic Panelon 12-15 Albumin mass conc 4.3 g/dL Normal 3.9-4.9 [facility] Comment on above: Performed By: #### C BCDIF, CMP, LIPA #### [place] [address] [place] [phone] ALP enzyme act/vol 40 U/L Normal 34-123 [facility] Comment on above: Performed By: #### C BCDIF, CMP, LIPA #### [place] [address] [place], [place] [address] ALT enzyme act/vol 13 U/L Normal 7-38 [facility] Comment on above: Performed By: #### C BCDIF, CMP, LIPA #### [facility] [address] [place] [phone] Anion gap molar conc 13 mmol/L Normal 9-18 [facility] Comment on above: Performed By: #### C BCDIF, CMP, LIPA #### [facility] [address] [place] [phone] AST enzyme act/vol 15 U/L Normal 13-35 [facility] Comment on above: Performed By: #### C BCDIF, CMP, LIPA #### [facility] [address] [place] [phone] Bilirubin mass conc 0.6 mg/dL Normal 0.2-1.3 [facility] Comment on above: Performed By: #### C BCDIF, CMP, LIPA #### [facility] [address] [place] [phone] Calcium mass conc 9.3 mg/dL Normal 8.5-10.2 [facility] Comment on above: Performed By: #### C BCDIF, CMP, LIPA #### [facility] [address] [place] [phone] Chloride molar conc 103 mmol/L Normal 97-105 [facility] Comment on above: Performed By: #### C BCDIF, CMP, LIPA #### [facility] [address] [place] [phone] CO2 molar conc 24 mmol/L Normal 22-30 [facility] Comment on above: Performed By: #### C BCDIF, CMP, LIPA #### [facility] [address] [place] [phone] Creatinine mass conc 0.86 mg/dL Normal 0.58-0.96 [facility] Comment on above: Performed By: #### C BCDIF, CMP, LIPA #### [facility] [address] [place] [address] eGFR- Amer. >60 Normal [facility] Comment on above: Performed By: #### C BCDIFJUJU, LIPA #### [facility] [address] [place] [phone] GFR/1.73 sq M predicted among non-blacks MDRD vol rate/area (S/P/Bld) mL/min/{1.73_m2} Normal [facility] Comment on above: Result Comment: eGFR [...] reflect actual GFR. Performed By: #### C BCDIFJUJU, LIPA #### [facility] [address] [place] [address] Glucose mass conc 92 mg/dL Normal 74-99 [facility] Comment on above: Result Comment: The [place] [employer] (ADA) provides guidance for cutoff [...] Standards of Medical Care in Diabetes 2016, [place] [employer]. Diabetes Care. 2016.39(Suppl 1). Performed By: #### C BCDIF, CMP, LIPA #### [facility] [address] [place] [phone] Potassium molar conc 3.5 mmol/L Low 3.7-5.1 [facility] Comment on above: Performed By: #### C BCDIF, CMP, LIPA #### [facility] [address] [place], [place] [address] Protein mass conc 6.9 g/dL Normal 6.3-8.0 [facility] Comment on above: Performed By: #### C BCDIF, CMP, LIPA #### [facility] [address] [place] [address] Sodium molar conc 140 mmol/L Normal 136-144 [facility] Comment on above: Performed By: #### C BCDIF, CMP, LIPA #### [facility] [address] [place] [address] Urea nitrogen mass conc 7 mg/dL Normal 7-21 [facility] Comment on above: Performed By: #### C BCDIF, CMP, LIPA #### [place] [phone] [place] [address] ED PROV NOTEon 12-15-2018 Protein mass conc HNO ID: [id number] Author: Daniela Walton MD Service: Emergency Medicine [...] SONOGRAPHIC APPEARANCE OF THE RIGHT UPPER QUADRANT. Citizen Participation Specialist: NANETTE Transcribe Date/Time: Dec 15 2018 3:57A [...] Impression ED Course as of Dec 15 0459 Daniela Walton's Documentation Mon Dec 15, 2018 0432 IMPRESSION: FOCAL MILD INTRAHEPATIC BILIARY DILATION IN THE LEFT HEPATIC LOBE, OTHERWISE NORMAL SONOGRAPHIC APPEARANCE OF THE RIGHT UPPER QUADRANT. Citizen Participation Specialist: NANETTE ? Transcribe Date/Time: Dec 15 2018 [...] QUADRANT ULTRASOUND CLINICAL HISTORY: Patient returned from [place] trip to [facility] with right upper quadrant abdominal pain [...] or torsion. With her recent travel to [facility] considered strongly the possibility of a [...] MD Daniela Brown MD 12/15/[address] [facility] Lipaseon 12-15-2018 Lipase enzyme act/vol 24 U/L Normal 16-61 [facility] Comment on above: Performed By: #### C BCDIF, CMP, LIPA #### [facility] [address] [place] [phone] US ABD RIGHT UPPER QUADRANTo n 12-15-2018 US ABD RIGHT UPPER QUADRANT * * *Final Report* * * DATE OF EXAM: Dec 15 2018 3:31AM SCU 1032 - US ABD RIGHT UPPER QUADRANT / PROCEDURE REASON: RUQ abdominal pain * * * * Physician Interpretation * * * * EXAMINATION: RIGHT UPPER QUADRANT ULTRASOUND CLINICAL HISTORY: Patient returned from [place] trip to [facility] with right upper quadrant abdominal pain [...] SONOGRAPHIC APPEARANCE OF THE RIGHT UPPER QUADRANT. Citizen Participation Specialist: PSCB Transcribe Date/Time: Dec 15 2018 3:57A Dictated by : NANDO ALICEA MD This examination was interpreted and the report reviewed and electronically signed by: TONG ALBA MD on Dec 15 2018 4:19AM EST [id number] Normal [facility] Culture, urine Bacteria identified Cx Nom (U) Positive [facility] Work Phone: No Panel Information Group B Streptococcus Culture Streptococcus agalactiae (B) [facility] Work Phone: Vital Signs Date Time Vital Sign Value Performing Clinician Jesse medellin 06-23-2025 14:14-0400 Body height 157.[address] Laureen Rasmussen MD Work Phone: [facility] 06-23-2025 14:14-0400 Body mass index (BMI) [Ratio] 29.9 kg/m2 Dr. Laureen Rasmussen MD Work Phone: [facility] 06-23-2025 14:14-0400 Body weight 74.[address] Laureen Rasmussen MD Work Phone: [facility] 06-23-2025 14:14-0400 Diastolic blood pressure 75 mm[Hg] Dr. Laureen Rasmussen MD Work Phone: [facility] 06-23-2025 14:14-0400 Systolic blood pressure 113 mm[Hg] Dr. Laureen Rasmussen MD Work Phone: [facility] 05-27-2025 14:55-0400 Body height 157.[address] Laureen Rasmussen MD Work Phone: [facility] 05-27-2025 14:55-0400 Body mass index (BMI) [Ratio] 29.9 kg/m2 Dr. Laureen Rasmussen MD Work Phone: [facility] 05-27-2025 14:55-0400 Body weight 74.[address] Laureen Rasmussen MD Work Phone: [facility] 05-27-2025 14:55-0400 Diastolic blood pressure 71 mm[Hg] Dr. Laureen Rasmussen MD Work Phone: [facility] 05-27-2025 14:55-0400 Systolic blood pressure 106 mm[Hg] Dr. Laureen Rasmussen MD Work Phone: [facility] 01-15-2024 08:37-0400 Body temperature 97.7 [degF] No Primary Care Physician [facility] 01-15-2024 08:37-0400 Diastolic blood pressure 72 mm[Hg] No Primary Care Physician [facility] 01-15-2024 08:37-0400 Heart rate 81 /min No Primary Care Physician [facility] 01-15-2024 08:37-0400 Respiratory rate 16 /min No Primary Care Physician [facility] 01-15-2024 08:37-0400 SaO2% (BldA) [Mass fraction] 99 % No Primary Care Physician [facility] 01-15-2024 08:37-0400 Systolic blood pressure 108 mm[Hg] No Primary Care Physician [facility] 01-14-2024 14:00-0400 Body temperature 98.4 [degF] No Primary Care Physician [facility] 01-14-2024 03:00-0400 Respiratory rate 16 /min No Primary Care Physician [facility] 01-14-2024 02:59-0400 Diastolic blood pressure 58 mm[Hg] No Primary Care Physician [facility] 01-14-2024 02:59-0400 Heart rate 89 /min No Primary Care Physician [facility] 01-14-2024 02:59-0400 Systolic blood pressure 101 mm[Hg] No Primary Care Physician [facility] 01-14-2024 01:25-0400 SaO2% (BldA) [Mass fraction] 99 % No Primary Care Physician [facility] 01-13-2024 12:59-0400 Body height 157.48 cm No Primary Care Physician [facility] 01-13-2024 12:59-0400 Body mass index (BMI) [Ratio] 27.8 kg/m2 No Primary Care Physician [facility] 01-13-2024 12:59-0400 Body weight 68.94 kg No Primary Care Physician [facility] 01-13-2024 12:01-0400 Diastolic blood pressure 75 mm[Hg] No Primary Care Physician [facility] 01-13-2024 12:01-0400 Systolic blood pressure 116 mm[Hg] No Primary Care Physician [facility] 01-13-2024 11:31-0400 Body mass index (BMI) [Ratio] 29.9 kg/m2 No Primary Care Physician [facility] 01-13-2024 11:31-0400 Body weight 74.38 kg No Primary Care Physician [facility] 01-08-2024 14:46-0400 Body mass index (BMI) [Ratio] 29.4 kg/m2 No Primary Care Physician [facility] 01-08-2024 14:46-0400 Body weight 73.02 kg No Primary Care Physician [facility] 01-08-2024 14:46-0400 Diastolic blood pressure 79 mm[Hg] No Primary Care Physician [facility] 01-08-2024 14:46-0400 Systolic blood pressure 114 mm[Hg] No Primary Care Physician [facility] 01-02-2024 11:40-0400 Body height 157.48 cm No Primary Care Physician [facility] 01-02-2024 11:40-0400 Body mass index (BMI) [Ratio] 29.6 kg/m2 No Primary Care Physician [facility] 01-02-2024 11:40-0400 Body weight 73.48 kg No Primary Care Physician [facility] 01-02-2024 11:19-0400 Body temperature 98.1 [degF] No Primary Care Physician [facility] 01-02-2024 11:19-0400 Respiratory rate 18 /min No Primary Care Physician [facility] 01-02-2024 11:18-0400 Diastolic blood pressure 72 mm[Hg] No Primary Care Physician [facility] 01-02-2024 11:18-0400 Heart rate 87 /min No Primary Care Physician [facility] 01-02-2024 11:18-0400 Systolic blood pressure 111 mm[Hg] No Primary Care Physician [facility] 12-11-2023 11:03-0500 Body height 157.48 cm No Primary Care Physician [facility] 12-11-2023 11:02-0500 Body mass index (BMI) [Ratio] 29.3 kg/m2 No Primary Care Physician [facility] 12-11-2023 11:02-0500 Body weight 72.74 kg No Primary Care Physician [facility] 12-11-2023 11:02-0500 Diastolic blood pressure 73 mm[Hg] No Primary Care Physician [facility] 12-11-2023 11:02-0500 Systolic blood pressure 116 mm[Hg] No Primary Care Physician [facility] 11-28-2023 11:27-0500 Diastolic blood pressure 64 mm[Hg] No Primary Care Physician [facility] 11-28-2023 11:27-0500 Systolic blood pressure 103 mm[Hg] No Primary Care Physician [facility] 11-28-2023 11:03-0500 Body mass index (BMI) [Ratio] 28.9 kg/m2 No Primary Care Physician [facility] 11-28-2023 11:03-0500 Body weight 71.66 kg No Primary Care Physician [facility] 11-13-2023 11:48-0500 Body mass index (BMI) [Ratio] 28.5 kg/m2 No Primary Care Physician [facility] 11-13-2023 11:48-0500 Body weight 70.76 kg No Primary Care Physician [facility] 11-13-2023 11:48-0500 Diastolic blood pressure 73 mm[Hg] No Primary Care Physician [facility] 11-13-2023 11:48-0500 Systolic blood pressure 123 mm[Hg] No Primary Care Physician [facility] 10-17-2023 09:11-0500 Body height 157.48 cm No Primary Care Physician [facility] 10-17-2023 09:11-0500 Body mass index (BMI) [Ratio] 28.2 kg/m2 No Primary Care Physician [facility] 10-17-2023 09:11-0500 Body weight 69.96 kg No Primary Care Physician [facility] 10-17-2023 09:11-0500 Diastolic blood pressure 78 mm[Hg] No Primary Care Physician [facility] 10-17-2023 09:11-0500 Systolic blood pressure 126 mm[Hg] No Primary Care Physician [facility] 09-19-2023 15:09-0500 Body mass index (BMI) [Ratio] 28.1 kg/m2 No Primary Care Physician [facility] 09-19-2023 15:09-0500 Body weight 69.85 kg No Primary Care Physician [facility] 09-19-2023 15:09-0500 Diastolic blood pressure 63 mm[Hg] No Primary Care Physician [facility] 09-19-2023 15:09-0500 Systolic blood pressure 99 mm[Hg] No Primary Care Physician [facility] 08-19-2023 14:12-0500 Body mass index (BMI) [Ratio] 27.3 kg/m2 No Primary Care Physician [facility] 08-19-2023 14:12-0500 Body weight 67.75 kg No Primary Care Physician [facility] 08-19-2023 14:12-0500 Diastolic blood pressure 73 mm[Hg] No Primary Care Physician [facility] 08-19-2023 14:12-0500 Systolic blood pressure 110 mm[Hg] No Primary Care Physician [facility] 07-25-2023 09:20-0400 Body height 157.48 cm No Primary Care Physician [facility] 07-25-2023 09:15-0400 Body mass index (BMI) [Ratio] 26.7 kg/m2 No Primary Care Physician [facility] 07-25-2023 09:15-0400 Body weight 66.39 kg No Primary Care Physician [facility] 07-25-2023 09:15-0400 Diastolic blood pressure 77 mm[Hg] No Primary Care Physician [facility] 07-25-2023 09:15-0400 Systolic blood pressure 127 mm[Hg] No Primary Care Physician [facility] 06-24-2023 08:55-0400 Body height 157.[address] Fanta Zarate Work Phone: [facility] 06-24-2023 08:50-0400 Body mass index (BMI) [Ratio] 26.8 kg/m2 Dr. Fanta Zarate Work Phone: [facility] 06-24-2023 08:50-0400 Body weight 66.[address] Fanta Zarate Work Phone: [facility] 06-24-2023 08:50-0400 Diastolic blood pressure 63 mm[Hg] Dr. Fanta Zarate Work Phone: [facility] 06-24-2023 08:50-0400 Systolic blood pressure 110 mm[Hg] Dr. Fanta Zarate Work Phone: [facility] 06-22-2022 15:25-0400 Heart rate 63 /min [facility] Work Phone: 06-22-2022 15:25-0400 SaO2% (BldA) [Mass fraction] 97 % [facility] Work Phone: 06-22-2022 15:24-0400 Diastolic blood pressure 55 mm[Hg] [facility] Work Phone: 06-22-2022 15:24-0400 Systolic blood pressure 105 mm[Hg] [facility] Work Phone: 06-22-2022 15:23-0400 Body temperature 97.3 [degF] [facility] Work Phone: 06-22-2022 11:46-0400 Respiratory rate 18 /min [facility] Work Phone: 06-21-2022 07:27-0400 Body height 157.48 cm [facility] Work Phone: 06-21-2022 07:27-0400 Body mass index (BMI) [Ratio] 29.8 kg/m2 [facility] Work Phone: 06-21-2022 07:27-0400 Body weight 73.93 kg [facility] Work Phone: 06-18-2022 03:42-0400 Body weight 73.3 kg [facility] Work Phone: 06-18-2022 00:43-0400 Diastolic blood pressure 62 mm[Hg] [facility] Work Phone: 06-18-2022 00:43-0400 Heart rate 86 /min [facility] Work Phone: 06-18-2022 00:43-0400 Systolic blood pressure 101 mm[Hg] [facility] Work Phone: 06-18-2022 00:36-0400 SaO2% (BldA) [Mass fraction] 98 % [facility] Work Phone: 06-09-2022 18:38-0400 Heart rate 103 /min [facility] Work Phone: 06-09-2022 18:38-0400 SaO2% (BldA) [Mass fraction] 98 % [facility] Work Phone: 06-09-2022 07:19-0400 Body height 157.48 cm [facility] Work Phone: 06-09-2022 07:19-0400 Body mass index (BMI) [Ratio] 29.5 kg/m2 [facility] Work Phone: 06-09-2022 07:19-0400 Body weight 73.4 kg [facility] Work Phone: 06-09-2022 06:58-0400 Diastolic blood pressure 73 mm[Hg] [facility] Work Phone: 06-09-2022 06:58-0400 Heart rate 95 /min [facility] Work Phone: 06-09-2022 06:58-0400 Systolic blood pressure 121 mm[Hg] [facility] Work Phone: 06-09-2022 06:54-0400 Body temperature 97.6 [degF] [facility] Work Phone: 06-07-2022 15:59-0400 Heart rate 108 /min [facility] Work Phone: 06-07-2022 15:59-0400 SaO2% (BldA) [Mass fraction] 99 % [facility] Work Phone: 06-07-2022 11:15-0400 Body mass index (BMI) [Ratio] 29.5 kg/m2 [facility] Work Phone: 06-07-2022 11:15-0400 Body weight 73.08 kg [facility] Work Phone: 06-07-2022 11:12-0400 Diastolic blood pressure 69 mm[Hg] [facility] Work Phone: 06-07-2022 11:12-0400 Systolic blood pressure 117 mm[Hg] [facility] Work Phone: 04-23-2022 19:49-0400 Body height 157.48 cm [facility] Work Phone: 04-23-2022 19:49-0400 Body mass index (BMI) [Ratio] 28.1 kg/m2 [facility] Work Phone: 04-23-2022 19:49-0400 Body weight 69.76 kg [facility] Work Phone: 04-23-2022 19:31-0400 Diastolic blood pressure 67 mm[Hg] [facility] Work Phone: 04-23-2022 19:31-0400 Heart rate 73 /min [facility] Work Phone: 04-23-2022 19:31-0400 Systolic blood pressure 116 mm[Hg] [facility] Work Phone: 04-23-2022 19:30-0400 Body temperature 97.4 [degF] [facility] Work Phone: 08-24-2021 10:51-0500 Body height 157.5 cm Parmjit Enrique MD Work Phone: [facility] 08-24-2021 10:51-0500 Body mass index (BMI) [Ratio] 26.08 kg/m2 Parmjit Enrique MD Work Phone: [facility] 08-24-2021 10:51-0500 Body temperature 97.11 [degF] Parmjit Enrique MD Work Phone: [facility] 08-24-2021 10:51-0500 Body weight 64.68 kg Parmjit Enrique MD Work Phone: [facility] 08-24-2021 10:51-0500 Diastolic blood pressure 62 mm[Hg] Parmjit Enrique MD Work Phone: [facility] 08-24-2021 10:51-0500 Heart rate 98 /min Parmjit Enrique MD Work Phone: [employer] 08-24-2021 10:51-0500 SaO2% (BldA) [Mass fraction] 98 % Parmjit Enrique MD Work Phone: [employer] [facility] 08-24-2021 10:51-0500 Systolic blood pressure 114 mm[Hg] Parmjit Enrique MD Work Phone: [facility] 02-26-2021 23:03-0400 Diastolic blood pressure 60 mm[Hg] Sagar Rodriguez MD Work Phone: [facility] 02-26-2021 23:03-0400 Heart rate 84 /min Sagar Rodriguez MD Work Phone: [facility] 02-26-2021 23:03-0400 Respiratory rate 18 /min Sagar Rodriguez MD Work Phone: [facility] 02-26-2021 23:03-0400 SaO2% (BldA) [Mass fraction] 98 % Sagar Rodriguez MD Work Phone: [facility] 02-26-2021 23:03-0400 Systolic blood pressure 110 mm[Hg] Sagar Rodriguez MD Work Phone: [facility] 02-26-2021 21:46-0400 Body height 157.5 cm Sagar Rodriguez MD Work Phone: [facility] 02-26-2021 21:46-0400 Body mass index (BMI) [Ratio] 25.4 kg/m2 Sagar Rodriguez MD Work Phone: [facility] 02-26-2021 21:46-0400 Body weight 63 kg Sagar Rodriguez MD Work Phone: [facility] 02-26-2021 21:45-0400 Body temperature 99.7 [degF] Sagar Rodriguez MD Work Phone: [facility] 02-08-2021 23:05-0400 Heart rate 104 /min Nehal Flower MD Work Phone: [facility] 02-08-2021 23:05-0400 SaO2% (BldA) [Mass fraction] 97 % Nehal Flower MD Work Phone: [facility] 02-08-2021 22:48-0400 Body temperature 98.6 [degF] Nehal Flower MD Work Phone: [facility] 02-08-2021 22:48-0400 Diastolic blood pressure 69 mm[Hg] Nehal Flower MD Work Phone: [facility] 02-08-2021 22:48-0400 Respiratory rate 16 /min Nehal Flower MD Work Phone: [facility] 02-08-2021 22:48-0400 Systolic blood pressure 110 mm[Hg] Nehal Flower MD Work Phone: [facility] 02-07-2021 10:06-0400 Body height 157.5 cm Mady Amor MD Work Phone: [facility] 02-07-2021 10:06-0400 Body mass index (BMI) [Ratio] 29.37 kg/m2 Mady Amor MD Work Phone: [facility] 02-07-2021 10:06-0400 Body temperature 98.2 [degF] Mady Amor MD Work Phone: [facility] 02-07-2021 10:06-0400 Body weight 72.85 kg Mady Amor MD Work Phone: [facility] 02-07-2021 10:06-0400 Diastolic blood pressure 72 mm[Hg] Mady Amor MD Work Phone: [facility] 02-07-2021 10:06-0400 Systolic blood pressure 112 mm[Hg] Mady Amor MD Work Phone: [facility] 02-06-2021 23:29-0400 Body temperature 96.6 [degF] Nehal Flower MD Work Phone: [facility] 02-06-2021 23:29-0400 Diastolic blood pressure 67 mm[Hg] Nehal Flower MD Work Phone: [facility] 02-06-2021 23:29-0400 Heart rate 83 /min Nehal Flower MD Work Phone: [facility] 02-06-2021 23:29-0400 Respiratory rate 16 /min Nehal Flower MD Work Phone: [facility] 02-06-2021 23:29-0400 SaO2% (BldA) [Mass fraction] 98 % Nehal Flower MD Work Phone: [facility] 02-06-2021 23:29-0400 Systolic blood pressure 117 mm[Hg] Nehal Flower MD Work Phone: [facility] 02-06-2021 22:15-0400 Body height 157.5 cm Nehal Flower MD Work Phone: [facility] 02-06-2021 22:15-0400 Body mass index (BMI) [Ratio] 29.15 kg/m2 Nehal Flower MD Work Phone: [facility] 02-06-2021 22:15-0400 Body weight 72.3 kg Nehal Flower MD Work Phone: [facility] 02-02-2021 13:21-0400 Body height 157.5 cm Rosita Chacon APRN-AUTO HEADLIGHT MECHANIC Work Phone: [facility] 02-02-2021 13:21-0400 Body mass index (BMI) [Ratio] 29.26 kg/m2 Rosita Chacon CLEANING PORTER-AUTO HEADLIGHT MECHANIC Work Phone: [facility] 02-02-2021 13:21-0400 Body temperature 97.5 [degF] Rosita Chacon APRN-AUTO HEADLIGHT MECHANIC Work Phone: [facility] 02-02-2021 13:21-0400 Body weight 72.58 kg Rosita Chacon CLEANING PORTER-AUTO HEADLIGHT MECHANIC Work Phone: [facility] 02-02-2021 13:21-0400 Diastolic blood pressure 64 mm[Hg] Rosita Chacon APRN-AUTO HEADLIGHT MECHANIC Work Phone: [facility] 02-02-2021 13:21-0400 Systolic blood pressure 118 mm[Hg] Rosita Chacon APRN-AUTO HEADLIGHT MECHANIC Work Phone: [facility] 01-26-2021 08:21-0400 Body height 157.5 cm Mady Amor MD Work Phone: [facility] 01-26-2021 08:21-0400 Body mass index (BMI) [Ratio] 29.45 kg/m2 Mady Amro MD Work Phone: [facility] 01-26-2021 08:21-0400 Body temperature 97.5 [degF] Mady Amor MD Work Phone: [facility] 01-26-2021 08:21-0400 Body weight 73.03 kg Mady Amor MD Work Phone: [facility] 01-26-2021 08:21-0400 Diastolic blood pressure 66 mm[Hg] Mady Amor MD Work Phone: [facility] 01-26-2021 08:21-0400 Systolic blood pressure 110 mm[Hg] Mady Amor MD Work Phone: [facility] 01-12-2021 08:43-0400 BMI (Body Mass Index) 28.31 kg/m2 [facility] 01-12-2021 08:43-0400 Body Temperature 98.1 [degF] [facility] 01-12-2021 08:43-0400 Body weight 70.22 kg [facility] T[facility] 01-12-2021 08:43-0400 BP Diastolic 62 mm[Hg] [facility] 01-12-2021 08:43-0400 BP Systolic 120 mm[Hg] [facility] 01-12-2021 08:43-0400 Height 157.5 cm [facility] MT[facility] T[facility] 12-26-2020 13:18-0400 BMI (Body Mass Index) 27.51 kg/m2 [facility] 12-26-2020 13:18-0400 Body Temperature 98.4 [degF] [facility] [employer] [facility] 12-26-2020 13:18-0400 Body weight 68.22 kg [facility] 12-26-2020 13:18-0400 BP Diastolic 62 mm[Hg] [facility] 12-26-2020 13:18-0400 BP Systolic 120 mm[Hg] [facility] 12-26-2020 13:18-0400 Height 157.5 cm [facility] 12-12-2020 08:56-0500 BMI (Body Mass Index) 27.44 kg/m2 [facility] 12-12-2020 08:56-0500 Body Temperature 97.39 [degF] [facility] 12-12-2020 08:56-0500 Body weight 68.04 kg [facility] 12-12-2020 08:56-0500 BP Diastolic 60 mm[Hg] [facility] 12-12-2020 08:56-0500 BP Systolic 100 mm[Hg] [facility] 12-12-2020 08:56-0500 Height 157.5 cm [facility] 11-28-2020 08:18-0500 BMI (Body Mass Index) 27.07 kg/m2 [facility] 11-28-2020 08:18-0500 Body Temperature 96.6 [degF] [facility] 11-28-2020 08:18-0500 Body weight 67.13 kg [facility] 11-28-2020 08:18-0500 BP Diastolic 64 mm[Hg] [facility] 11-28-2020 08:18-0500 BP Systolic 110 mm[Hg] [facility] 11-28-2020 08:18-0500 Height 157.5 cm [facility] 11-24-2020 23:45-0500 BP Diastolic 52 mm[Hg] [facility] 11-24-2020 23:45-0500 BP Systolic 105 mm[Hg] [facility] 11-24-2020 23:45-0500 Pulse (Heart Rate) 79 /min [facility] 11-24-2020 23:45-0500 Pulse Oximetry 96 % [facility] 11-24-2020 21:39-0500 Body Temperature 98.2 [degF] [facility] 11-24-2020 21:39-0500 Height 157.5 cm [facility] 11-24-2020 21:39-0500 Respiratory Rate 18 /min [facility] 10-24-2020 10:31-0500 BMI (Body Mass Index) 25.79 kg/m2 [facility] 10-24-2020 10:31-0500 Body Temperature 97.3 [degF] [facility] 10-24-2020 10:31-0500 Body weight 63.96 kg [facility] 10-24-2020 10:31-0500 BP Diastolic 70 mm[Hg] [facility] 10-24-2020 10:31-0500 BP Systolic 104 mm[Hg] [facility] 10-24-2020 10:31-0500 Height 157.5 cm [facility] 10-03-2020 09:54-0500 BMI (Body Mass Index) 25.97 kg/m2 [facility] 10-03-2020 09:54-0500 Body Temperature 96.4 [degF] [facility] 10-03-2020 09:54-0500 Body weight 64.41 kg [facility] 10-03-2020 09:54-0500 BP Diastolic 60 mm[Hg] [facility] 10-03-2020 09:54-0500 BP Systolic 104 mm[Hg] [facility] 10-03-2020 09:54-0500 Height 157.5 cm [facility] 09-05-2020 14:32-0500 BMI (Body Mass Index) 25.24 kg/m2 [facility] 09-05-2020 14:32-0500 Body Temperature 97.39 [degF] [facility] 09-05-2020 14:32-0500 Body weight 62.6 kg [facility] 09-05-2020 14:32-0500 BP Diastolic 58 mm[Hg] [facility] 09-05-2020 14:32-0500 BP Systolic 102 mm[Hg] [facility] 09-05-2020 14:32-0500 Height 157.5 cm [facility] 08-01-2020 07:39-0400 BMI (Body Mass Index) 25.24 kg/m2 [facility] 08-01-2020 07:39-0400 Body Temperature 97 [degF] [facility] 08-01-2020 07:39-0400 Body weight 62.6 kg [facility] 08-01-2020 07:39-0400 BP Diastolic 56 mm[Hg] [facility] 08-01-2020 07:39-0400 BP Systolic 108 mm[Hg] [facility] 08-01-2020 07:39-0400 Height 157.5 cm [facility] 06-30-2020 16:53-0400 Body surface area Derived from formula 1.62 m2 [facility] 06-30-2020 08:03-0400 BMI (Body Mass Index) 24.87 kg/m2 [facility] 06-30-2020 08:03-0400 Body Temperature 97.81 [degF] [facility] 06-30-2020 08:03-0400 Body weight 61.69 kg [facility] 06-30-2020 08:03-0400 BP Diastolic 58 mm[Hg] [facility] 06-30-2020 08:03-0400 BP Systolic 110 mm[Hg] [facility] 06-30-2020 08:03-0400 Height 157.5 cm [facility] 06-24-2020 13:55-0400 BMI (Body Mass Index) 24.69 kg/m2 [facility] [id number] [facility] 06-24-2020 13:55-0400 Body Temperature 98.01 [degF] [facility] Myrna Gal [id number] [facility] 06-24-2020 13:55-0400 Body weight 61.24 kg [facility] [id number] [facility] 06-24-2020 13:55-0400 BP Diastolic 60 mm[Hg] [facility] Myrna Gal [id number] [facility] 06-24-2020 13:55-0400 BP Systolic 100 mm[Hg] [facility] Myrna [facility] [id number] [facility] 06-24-2020 13:55-0400 Height 157.5 cm [facility] Myrna [facility] [id number] [facility] 06-14-2020 11:01-0400 BMI (Body Mass Index) 25.06 kg/m2 [facility] My[facility]na [facility] [id number] [facility] 06-14-2020 11:01-0400 Body Temperature 99.19 [degF] [facility] Myrna Gal [id number] [facility] 06-14-2020 11:01-0400 Body weight 62.14 kg Av[facility] Myrna Gal [id number] [facility] 06-14-2020 11:01-0400 BP Diastolic 58 mm[Hg] Av[facility] Myrna Gal [id number] [facility] 06-14-2020 11:01-0400 BP Systolic 100 mm[Hg] [facility] Myrna Gal [id number] [facility] 06-14-2020 11:01-0400 Height 157.5 cm Av[facility] Myrna [facility] [id number] [facility] 05-12-2020 10:36-0400 BMI (Body Mass Index) 24.87 kg/m2 [facility] 05-12-2020 10:36-0400 Body Temperature 97.59 [degF] [facility] 05-12-2020 10:36-0400 Body weight 61.69 kg [facility] 05-12-2020 10:36-0400 Height 157.5 cm [facility] 04-28-2020 09:56-0400 BP Diastolic 66 mm[Hg] [facility] 04-28-2020 09:56-0400 BP Systolic 108 mm[Hg] [facility] 04-28-2020 09:56-0400 Pulse (Heart Rate) 70 /min [facility] 04-28-2020 09:56-0400 Pulse Oximetry 99 % [facility] 04-28-2020 09:56-0400 Respiratory Rate 16 /min [facility] 04-28-2020 09:25-0400 Body Temperature 98.1 [degF] [facility] 04-28-2020 06:31-0400 BMI (Body Mass Index) 24.87 kg/m2 [facility] 04-28-2020 06:31-0400 Body weight 61.69 kg [facility] 04-28-2020 06:31-0400 Height 157.5 cm [facility] 04-07-2020 15:32-0400 BMI (Body Mass Index) 24.95 kg/m2 [facility] 04-07-2020 15:32-0400 Body Temperature 98.1 [degF] [facility] 04-07-2020 15:32-0400 Body weight 61.87 kg [facility] 04-07-2020 15:32-0400 Height 157.5 cm [facility] 03-10-2020 10:09-0400 BMI (Body Mass Index) 25.42 kg/m2 [facility] 03-10-2020 10:09-0400 Body Temperature 97.11 [degF] [facility] 03-10-2020 10:09-0400 Body weight 63.05 kg [facility] 03-10-2020 10:09-0400 Height 157.5 cm [facility] 02-04-2020 09:50-0400 BMI (Body Mass Index) 25.02 kg/m2 [facility] 02-04-2020 09:50-0400 Body Temperature 99.1 [degF] [facility] 02-04-2020 09:50-0400 Body weight 62.05 kg [facility] 02-04-2020 09:50-0400 BP Diastolic 62 mm[Hg] [facility] 02-04-2020 09:50-0400 BP Systolic 116 mm[Hg] [facility] 02-04-2020 09:50-0400 Height 157.5 cm [facility] 02-04-2020 09:50-0400 Pulse (Heart Rate) 69 /min [facility] 02-04-2020 09:50-0400 Pulse Oximetry 99 % [facility] 02-01-2020 10:50-0400 BMI (Body Mass Index) 24.69 kg/m2 [facility] 02-01-2020 10:50-0400 Body Temperature 98.4 [degF] [facility] 02-01-2020 10:50-0400 Body weight 61.24 kg [facility] 02-01-2020 10:50-0400 BP Diastolic 68 mm[Hg] [facility] 02-01-2020 10:50-0400 BP Systolic 106 mm[Hg] [facility] 02-01-2020 10:50-0400 Height 157.5 cm [facility] 08-21-2018 12:49-0500 BMI (Body Mass Index) 22.86 kg/m2 [facility] 08-21-2018 12:49-0500 Body Temperature 98.29 [degF] [facility] 08-21-2018 12:49-0500 BP Diastolic 78 mm[Hg] [facility] 08-21-2018 12:49-0500 BP Systolic 116 mm[Hg] [facility] 08-21-2018 12:49-0500 Height 157.5 cm [facility] 08-21-2018 12:49-0500 Pulse (Heart Rate) 76 /min [facility] 08-21-2018 12:49-0500 Pulse Oximetry 99 % [facility] 08-21-2018 12:49-0500 Respiratory Rate 16 /min [facility] 08-21-2018 12:49-0500 Weight 56.7 kg [facility] Encounters Encounter Date Encounter Type Care Provider Facility Start: 07-19-2025 End: 07-19-2025 ambulatory Laureen Rasmussen Facility:[facility] Start: 06-23-2025 End: 06-23-[address] Laureen Rasmussen MD Work Phone: -Laboratory Specimen Start: 06-23-2025 End: 06-23-[address] Fanta Zarate MD -Laboratory Specimen Work Phone: Start: 06-23-2025 End: 06-23-[address] Fanta Zarate MD -[facility] Work Phone: Start: 06-23-2025 End: 06-23-[address] Laureen Rasmussen MD Work Phone: -[facility] Start: 06-23-2025 End: 06-23-2025 ambulatory Fanta Zarate Facility:[facility] Start: 06-16-2025 End: 06-16-[address] Laureen Rasmussen MD Work Phone: -Laboratory Start: 06-16-2025 End: 06-16-2025 Patient encounter procedure Juliet GUTIERREZ -Laboratory Work Phone: Start: 06-16-2025 End: 06-16-2025 ambulatory Juliet Bee Facility:[facility] Start: 05-27-2025 End: 05-27-[address] Laureen Rasmussen MD Work Phone: -Laboratory Specimen Start: 05-27-2025 End: 05-27-2025 Patient encounter procedure Juliet Virk CN -Laboratory Specimen Work Phone: Start: 05-27-2025 End: 05-27-2025 Patient encounter procedure Juliet Virk CNM -[facility] Work Phone: Start: 05-27-2025 End: 05-27-[address] Laureen Rasmussen MD Work Phone: -[facility] Start: 05-27-2025 End: 05-27-2025 ambulatory Juliet Virk Facility:[facility] Start: 05-14-2025 Non-patient / Non-visit Beryl fuentes RN -[facility] Work Phone: Start: 05-14-2025 ambulatory Laureen Downs Facility :[facility] Start: 11-18-2024 End: 11-18-2024 ambulatory Laureen Grady Facility:[facility] Start: 11-18-2024 End: 11-18-2024 ambulatory Sagar CANTRELL Facility:[facility] Start: 04-22-2024 End: 04-22-2024 ambulatory MD NO PRIMARY CARE [facility] Start: 01-15-2024 Non-patient / Non-visit No Belinda kirby [facility] Physician [facility] Start: 01-13-2024 Non-patient / Non-visit No Belinda kirby [facility] Physician [facility] Start: 01-13-2024 End: 01-15-2024 Evaluation and management of inpatient No Primary Care Physician [facility] Work Phone: Start: 01-13-2024 End: 01-13-2024 Patient encounter procedure No Primary Care Physician [facility] Work Phone: Start: 01-08-2024 End: 01-08-2024 ambulatory No Primary Care Physician [facility] Work Phone: Start: 01-08-2024 End: 01-08-2024 Patient encounter procedure No Primary Care Physician [facility] Work Phone: Start: 01-03-2024 Non-patient / Non-visit No Belinda kirby [facility] Physician [facility] Start: 01-02-2024 End: 01-02-2024 ambulatory No Primary Care Physician [facility] Work Phone: Start: 01-02-2024 End: 01-02-2024 Patient encounter procedure No Primary Care Physician [facility] Outpatients Work Phone: Start: 12-23-2023 End: 12-23-2023 Patient encounter procedure No Primary Care Physician [facility] Work Phone: Start: 12-11-2023 End: 12-11-2023 ambulatory No Primary Care Physician [facility] Work Phone: Start: 12-11-2023 End: 12-11-2023 Patient encounter procedure No Primary Care Physician [facility]-Laboratory, Specimen Work Phone: Start: 12-11-2023 End: 12-11-2023 Patient encounter procedure No Primary Care Physician [facility] Work Phone: Start: 11-28-2023 End: 11-28-2023 Patient encounter procedure No Primary Care Physician [facility] Work Phone: Start: 11-13-2023 End: 11-13-2023 Patient encounter procedure No Primary Care Physician [facility] Work Phone: Start: 10-17-2023 End: 10-17-2023 ambulatory No Primary Care Physician [facility] Work Phone: Start: 10-17-2023 End: 10-17-2023 Patient encounter procedure No Primary Care Physician [facility] Work Phone: Start: 09-19-2023 End: 09-19-2023 Patient encounter procedure No Primary Care Physician [facility] Work Phone: Start: 09-11-2023 End: 09-11-2023 Patient encounter procedure No Primary Care Physician [facility] Ultrasound Work Phone: Start: 08-19-2023 End: 08-19-2023 Patient encounter procedure No Primary Care Physician [facility] Work Phone: Start: 07-25-2023 End: 07-25-2023 Patient encounter procedure No Primary Care Physician [facility] Work Phone: Start: 07-11-2023 End: 08-06-2023 ambulatory No Primary Care Physician [facility] Work Phone: Start: 07-11-2023 End: 08-06-2023 Discharged Recurring No Primary Care Physician [facility] Start: 06-24-2023 End: 06-24-[address] Fanta Zarate Work Phone: [facility] Work Phone: Start: 06-24-2023 End: 06-24-[address] 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 Start: 06-21-2022 End: 06-22-2022 Evaluation and management of inpatient [facility] Start: 06-18-2022 End: 06-18-2022 [facility] Start: 06-09-2022 End: 06-09-2022 ambulatory [facility] Work Phone: Start: 06-09-2022 End: 06-09-2022 Patient encounter procedure [facility], Outpatients Start: 06-07-2022 End: 06-07-2022 Patient encounter procedure [facility], Outpatients Start: 06-04-2022 End: 06-04-2022 ambulatory [facility] Work Phone: Start: 06-04-2022 End: 06-04-2022 [facility] Start: 05-19-2022 End: 06-06-2022 ambulatory [facility] Work Phone: Start: 05-19-2022 End: 06-06-2022 Discharged Recurring [facility] Start: 04-23-2022 End: 04-23-2022 Patient encounter procedure [facility], Outpatients Start: 03-27-2022 End: 03-27-2022 Patient encounter procedure [facility]-Laboratory, Specimen Start: 11-17-2021 End: 11-17-2021 Office outpatient visit 15 minutes Parmjit Enrique MD Work Phone: [facility] Comment on above: Anxiety disorder, un specified type (Primary Dx); Dysthymia Start: 08-24-2021 End: 08-24-2021 Patient encounter status Parmjit Enrique MD Work Phone: [facility] Start: 08-24-2021 End: 08-24-2021 Periodic preventive med est patient 18-39 yrs Parmjit Enrique MD Work Phone: [facility] Comment on above: Routine general medi kayli examination at a health care facility (Primary Dx) Start: 02-26-2021 End: 02-26-2021 Emergency department patient visit Sagar Rodriguez MD Work Phone: [facility] Start: 02-08-2021 End: 02-09-2021 Subsequent hospital visit by physician Nehal Flower MD Work Phone: [facility] Start: 02-07-2021 End: 02-07-2021 Subsequent care visit Mady Amor MD Work Phone: [facility] Comment on above: Encounter for electi ve induction of labor (Primary Dx); Anxiety; Family history of clotting disorder; Uterine contractions during Start: 02-06-2021 End: 02-06-2021 Subsequent hospital visit by physician Nehal Flower MD Work Phone: [facility] Start: 02-02-2021 End: 02-02-2021 Subsequent hospital visit by physician Raymon Madera MD Work Phone: [facility]TR[facility] Start: 02-02-2021 End: 02-02-2021 Subsequent care visit Raymon Madera MD Work Phone: [facility] NURSE WOUND CARE Comment on above: Encounter for superv ision of normal first in third trimester (Primary Dx); Uncertain lie of fetus, single or unspecified fetus; Anxiety; 37 weeks gestation of Start: 01-26-2021 End: 01-26-2021 Subsequent care visit Raymon Madera MD Work Phone: [facility] NURSE WOUND CARE Comment on above: 36 weeks gestation o f (Primary Dx); Family history of clotting disorder Start: 01-12-2021 End: 01-12-2021 Follow-up encounter Rosita Chacon Work [facility]: [facility] Comment on above: Family history of cl otting disorder Start: 12-26-2020 End: 12-26-2020 Follow-up encounter Raymon Madera Work Phone: [facility] NURSE WOUND CARE Comment on above: Family history of cl otting disorder Start: 12-12-2020 End: 12-12-2020 Follow-up encounter Rosita Chacon Work Phone: [facility] Comment on above: High-risk , young primigravida in third trimester (Primary Dx); Anxiety in , antepartum; 30 weeks gestation of Start: 12-07-2020 End: 12-07-2020 Subsequent hospital visit by physician Raymon Madera Work Phone: [facility]TR[facility] Start: 11-28-2020 End: 11-28-2020 Follow-up encounter Sandra Mchugh Work Phone: [facility] NURSE WOUND CARE Comment on above: High-risk , young primigravida in third trimester (Primary Dx); H/O migraine during ; Anxiety in , antepartum; headache in third trimester; 28 weeks gestation of Start: 11-24-2020 End: 11-25-2020 Emergency department patient visit Bartolo Zheng Work Phone: [facility] Emergency Medicine Start: 10-24-2020 End: 10-24-2020 Follow-up encounter Raymon Madera Work Phone: [facility] NURSE WOUND CARE Comment on above: Encounter for superv ision of normal first in second trimester (Primary Dx); 23 weeks gestation of Start: 10-24-2020 End: 10-24-2020 Subsequent hospital visit by physician Raymon Madera Work Phone: [facility] Start: 10-03-2020 End: 10-03-2020 Follow-up encounter Sandra Mchugh Work Phone: [facility] NURSE WOUND C[facility] Comment on above: Encounter for superv ision of normal first in second trimester (Primary Dx); 20 weeks gestation of Start: 09-05-2020 End: 09-05-2020 Follow-up encounter Raymon Madera Work Phone: [facility] Comment on above: Encounter for superv ision of normal first in second trimester (Primary Dx); Alopecia; 16 weeks gestation of Start: 09-05-2020 End: 09-05-2020 Subsequent hospital visit by physician Raymon Madera Work Phone: [facility] Start: 08-01-2020 End: 08-01-2020 Follow-up encounter Raymon Madera Work Phone: [facility] Comment on above: Encounter for superv ision of normal first in first trimester (Primary Dx); 11 weeks gestation of Start: 06-30-2020 End: 06-30-2020 Follow-up encounter Rosita Chacon Work Phone: [facility] Comment on above: Encounter for superv ision of normal first in first trimester (Primary Dx); 6 weeks gestation of Start: 06-30-2020 End: 06-30-2020 Subsequent hospital visit by physician Raymon Madera Work Phone: [facility] Start: 06-24-2020 End: 06-24-2020 Office outpatient visit 5 minutes Raymon Madera Work Phone: [facility] Comment on above: 10 weeks gestation o f (Primary Dx); Family history of clotting disorder Start: 06-14-2020 End: 06-14-2020 Clinical Support Encounter Raymon Madera Work Phone: [facility] Comment on above: Missed period (Prima ry Dx); Clotting disorder Start: 05-12-2020 End: 05-12-2020 Postop follow up visit related to original px Ceci Che Work Phone: [facility] Comment on above: S/P excision of gang lion cyst (Primary Dx) Start: 04-28-2020 End: 04-28-2020 Subsequent hospital visit by physician Gerri Hicks Work Phone: [facility] Comment on above: Ganglion of right wr ist Start: 04-07-2020 End: 04-07-2020 Patient encounter procedure Ceci Che Work Phone: [facility] Comment on above: Ganglion cyst (Prima ry Dx) Start: 03-10-2020 End: 03-10-2020 Subsequent hospital visit by physician Ceci Che Work Phone: [facility] Comment on above: Arrived Start: 03-10-2020 End: 03-10-2020 Office outpatient new 45 minutes Ceci Che Work Phone: [facility] Comment on above: Ganglion cyst of wri st, right (Primary Dx) Start: 02-04-2020 End: 02-04-2020 Initial preventive medicine new pt age 18-39yrs Parmjit Enrique Work Phone: [facility] Comment on above: Routine general medi kayli examination at a health care facility (Primary Dx); Hx of cold sores Start: 02-01-2020 End: 02-01-2020 Initial preventive medicine new pt age 18-39yrs Sandra Mchugh Work Phone: [facility] NURSE [facility]OUND C[facility] Comment on above: Encounter for gyneco logical examination without abnormal finding (Primary Dx); Screening for cervical cancer; Screening for STDs (sexually transmitted diseases); Encounter for surveillance of contraceptive pills Start: 12-17-2018 Patient encounter procedure Facility:[id number] Start: 12-16-2018 End: 12-19-2018 Evaluation and management of inpatient Nodr No Doctor Assigned Facility:[facility] Start: 12-16-2018 End: 12-17-2018 Patient encounter procedure Love Barnhart Facility:[facility] Start: 12-16-2018 Patient encounter procedure Facility:[id number] Start: 12-15-2018 End: 12-15-2018 Emergency department patient visit DANIELA WAL[facility] Start: 08-21-2018 Encounter for genera l adult medical examination without abnormal findings [facility] Start: 08-21-2018 End: 08-21-2018 Patient encounter procedure MADY FARRELL [facility] Start: 08-21-2018 End: 08-21-2018 Initial preventive medicine new pt age 18-39yrs Mady Farrell Work Phone: [facility] Comment on above: Oral herpes simplex infection; Impetigo; Well adult exam; Nasal septal deviation Start: 08-12-2018 Patient encounter procedure [facility] Encounter for genera l adult medical examination without abnormal findings [facility] Procedures Date Procedure Procedure Detail Performing Clinician Start: 06-23-2025 Gram stain microscopy Alison Rasmussen MD Work Phone: Start: 06-23-[address] Laureen Rasmussen MD Work Phone: Start: 06-16-2025 Hepatitis C antibody measurement Dr. [...] HCV Quant by PCR testing - HCVPCR #[id number] Non Reactive: < 0.8 Equivocal: >/= 0.8 to < 1.0 Reactive: >/= 1.0The CDC requires that a reactive/equivocal HCV antibody result be sent out for confirmation. HCV Quant by PCR testing. Start: 06-16-[address] Laureen Rasmussen MD Work Phone: Comment on above: Test Ordered: [id number] TSH Receptor Antibody (TBII)TSH Receptor Antibody (TBII) 0.7 U/L ES Reference Range: .Reference Range:Antibody Titer:<1.0 U/L = Negative1.1 - 1.5 U/L = Equivocal>1.5 U/L = PositivePerformed at: [facility] [id number] [place], [place] [id number] Director: Isrrael Grajeda MD, Phone: [phone] at: [facility] [place], [place] [address]Nnd Director: Federico Tavarez PhD, Phone: [phone] Start: 06-16-[address] Laureen [...] Phone: Start: 11-28-2020 GLUCOSE POST LOADING Am i L Jeison Work Phone: Start: 11-28-2020 Syphilis test non-tr eponemal antibody qual Ami L Jeison Work Phone: Start: 11-24-2020 Complete blood count with white cell differential, automated Bartolo Zheng Work Phone: Start: 11-24-2020 Comprehensive metabolic panel Bartolo Zheng Work Phone: Start: 11-24-2020 CT of entire head Jair Zheng Work Phone: Start: 11-24-2020 Culture bacterial qu anttative colony count urine Bartolo Zheng Work Phone: Start: 11-24-2020 Urinalysis microscopic only Bartoloelo Zheng Work Phone: Start: 11-24-2020 Urinalysis, reagent strip without microscopy Bartolo Zheng Work Phone: Start: 11-24-2020 Gluc bld gluc mntr d ev cleared fda spec home use Bartolo Zheng Work Phone: Start: 10-24-2020 Narrative [Interpretation] Study observation general Ami L Jeison Work Phone: Start: 06-30-2020 Narrative [Interpretation] Study observation general Mady Amor Work Phone: Start: 06-24-2020 Culture [...] Choriogonadotropin ( test) [Presence] in Urine Tyrell Betancourt Rogers Work Phone: Start: 02-01-2020 PAP IG, CT-NG, RFX HPV ASCU Sandra Mchugh Work Phone: Group B Streptococcus Culture Urine culture Viral antigen assay Plan of Treatment Date Care Activity Detail Author Start: 12-12-2030 Tetanus vaccination [facility] Start: 06-16-2025 Procedure [facility] Start: 01-15-2024 Patient discharge [facility] Start: 01-15-2024 [facility] Start: 01-14-2024 Documentation procedure [facility] Start: 01-14-2024 Administration of medication [facility] Start: 01-14-2024 Application of ice collar, cap or bag [facility] Start: 01-14-2024 Catheterization of vein [facility] Start: 01-14-2024 Introduction of urin vicente catheter [facility] Start: 01-14-2024 Measuring intake and output [facility] Start: 01-14-2024 Notification of physician [facility] Start: 01-14-2024 Procedure discontinued [facility] Start: 01-14-2024 Provision of activit y privileges [facility] Start: 01-14-2024 Vital signs measurements [facility] Start: 01-14-2024 End: 01-14-2024 [facility] Start: 01-14-2024 Consultation [facility] Start: 01-13-2024 Admission procedure [facility] Start: 01-13-2024 Verification routine [facility] Start: 01-02-2024 Nonstress test [facility] Start: 01-02-2024 Obstetric monitoring [facility] Start: 01-02-2024 Vital signs measurements [facility] Start: 01-02-2024 [facility] Start: 01-02-2024 Patient discharge [facility] Start: 01-02-2024 [facility] Start: 06-24-2023 Liquid based cervica l cytology screening [facility] Start: 06-22-2022 Patient discharge [facility] Work Phone: Start: 06-22-2022 Consultation [facility] Work Phone: Start: 06-21-2022 Administration of medication [facility] Work Phone: Start: 06-21-2022 Application of ice collar, cap or bag [facility] Work Phone: Start: 06-21-2022 Catheterization of vein [facility] Work Phone: Start: 06-21-2022 Introduction of urin vicente catheter [facility] Work Phone: Start: 06-21-2022 Measuring intake and output [facility] Work Phone: Start: 06-21-2022 Notification of physician [facility] Work Phone: Start: 06-21-2022 Procedure discontinued [facility] Work Phone: Start: 06-21-2022 Provision of activit y privileges [facility] Work Phone: Start: 06-21-2022 Vital signs measurements [facility] Work Phone: Start: 06-21-2022 [facility] Work Phone: Start: 06-21-2022 Admission procedure [facility] Work Phone: Start: 06-09-2022 Patient discharge [facility] Work Phone: Start: 06-07-2022 Nonstress test [facility] Work Phone: Start: 06-07-2022 Obstetric monitoring [facility] Work Phone: Start: 06-07-2022 Vital signs measurements [facility] Work Phone: Start: 06-07-2022 [facility] Work Phone: Start: 06-07-2022 Iv infusion hydratio n each additional hour HYDRATE IV INFUSION ADD-ON [facility] Work Phone: Start: 06-07-2022 Iv infusion hydratio n initial 31 min-1 [facility] Start: 06-07-2022 Patient discharge [facility] Work Phone: Start: 05-21-2022 Tetanus vaccination TETANUS EVERY 10 YR Start: 04-23-2022 Nonstress test [facility] Work Phone: Start: 04-23-2022 End: 04-23-2022 [facility] Work Phone: Start: 04-23-2022 Obstetric monitoring [facility] Work Phone: Start: 04-23-2022 Vital signs measurements [facility] Work Phone: Start: 04-23-2022 Iv infusion hydratio n each additional hour HYDRATE IV INFUSION ADD-ON [facility] Work Phone: Start: 04-23-2022 Iv infusion hydratio n initial 31 min-1 hour [facility] Start: 04-23-2022 Catheterization of vein [facility] Work Phone: Start: 04-23-2022 Patient discharge [facility] Work Phone: Start: 02-08-2022 GONORRHEA SCREEN GONORRHEA SCREEN [facility] Start: 02-08-2022 Screening for Chlamy galo trachomatis CHLAMYDIA SCREEN [facility] Start: 06-30-2021 GONORRHEA SCREEN GONORRHEA SCREEN [facility] Start: 06-30-2021 Screening for Chlamy galo trachomatis CHLAMYDIA SCREEN [facility] Start: 06-07-2021 Influenza vaccination INFLUENZ A VACCINE (Season Ended) [facility] Start: 02-09-2021 End: 02-09-2021 Follow-up encounter 02/09/2021 Follow Up Visit NURSE WOUND CARE Raymon Madera MD [address] [place] [address] [facility] NURSE WOUND CARE Start: 02-02-2021 End: 02-02-2022 US OB LIMITED/NERISSA [facility] Comment on above: Expected: 02/02/2021 , Expires: 02/02/2022 1 Occurrences starti ng 02/02/2021 until 02/02/2021 Start: 02-02-2021 End: 02-02-2021 Follow-up encounter 02/02/2021 Follow Up Visit NURSE WOUND CARE Rosita Chacon, [employer] [id number] [place] [address] [facility] NURSE WOUND CARE Start: 01-31-2021 Screening for malign ant neoplasm of cervix CERVICAL CANCER SCREENING DISCUSSION [facility] Start: 01-26-2021 End: 01-26-2021 Follow Up Visit 01/26/2021 Follow Up Visit NURSE WOUND CARE Mady Amor MD [address] [place] [address] [facility] NURSE WOUND CARE Start: 01-12-2021 End: 01-12-2021 Follow Up Visit 01/12/2021 Follow Up Visit NURSE WOUND CARE Rosita Chacon, [employer] [id number] [place] [address] [facility] NURSE WOUND CARE Start: 12-26-2020 End: 12-26-2020 Follow Up Visit 12/26/2020 Follow Up Visit NURSE WOUND CARE Mady Amor MD [address] [place] [address] [facility] NURSE WOUND CARE Start: 12-12-2020 End: 12-12-2020 Follow Up Visit 12/12/2020 Follow Up Visit NURSE WOUND CARE Rosita Chacon, [employer] [address] [place] [address] [facility] NURSE WOUND CARE Start: 12-07-2020 End: 12-07-2020 Appointment 12/07/2020 Appointment Ultrasound Raymon Madera MD [address] [id number] [phone] [facility] Start: 11-28-2020 End: 11-28-2020 Follow Up Visit 11/28/2020 Follow Up Visit NURSE WOUND CARE Sandra Mchugh, [employer] [address] [address] [facility] NURSE WOUND CARE Start: 10-24-2020 End: 10-24-2020 Appointment [facility] Start: 10-03-2020 End: 10-03-2020 Appointment [facility] Start: 09-05-2020 End: 09-05-2020 Appointment [facility] Start: 09-05-2020 End: 09-05-2021 TSH W/FT4 REFLEX TSH W/FT4 REFLEX Lab Routine Alopecia Expected: 09/05/2020, Expires: 09/05/2021 [facility] Comment on above: Expected: 09/05/2020 , Expires: 09/05/2021 Start: 08-01-2020 End: 08-01-2020 Follow Up Visit 08/01/2020 Follow Up Visit NURSE WOUND CARE Raymon Madera MD [address] [id number] [phone] [facility] NURSE WOUND CARE Start: 06-30-2020 End: 06-30-2021 CHLAMYDIA/GONOCOCCUS, JIMMY CHLAMYDIA/GONOCOCCUS, JIMMY Microbiology Routine Encounter for supervision of normal first in first trimester 6 weeks gestation of Expected: 06/30/2020, Expires: 06/30/2021 [facility] Comment on above: Expected: 06/30/2020 , Expires: 06/30/2021 Start: 06-30-2020 End: 06-30-2020 Appointment [facility] Start: 06-24-2020 End: 06-24-2021 Narrative [Interpretation] Study observation general US US OB DATING ABDOMINAL < 14WEEKS Imaging Routine 10 weeks gestation of Expected: 06/24/2020, Expires: 06/24/2021 [facility] Comment on above: Expected: 06/24/2020 , Expires: 06/24/2021 Start: 06-24-2020 End: 06-24-2020 Clinical Support Encounter 06/24/2020 Clinical Support Encounter NURSE WOUND CARE Raymon Madera MD [address] [place] [phone] [facility] NURSE WOUND CARE Start: 06-07-2020 Influenza vaccination [facility] Start: 05-19-2020 End: 05-19-2020 Office Visit 05/19/2020 Office Visit Orthopaedics Ceci Che PA-C [address] [facility] [address] [phone] [facility] Start: 05-12-2020 End: 05-12-2020 Office Visit 05/12/2020 Office Visit Orthopaedics Ceci Che PA-C [address] [place] [address] [phone] [facility] Start: 04-28-2020 End: 04-28-2020 Procedure Pass [facility] Comment on above: Ganglion of right wr ist EXCISION SOFT TISSUE FINGER HAND Start: 04-25-2020 End: 04-25-2020 Lab Encounter 04/25/2020 Lab Encounter Clinical Pathology/Laboratory Medicine Gerri Hicks MD [address] [place] [address] [facility] Start: 04-07-2020 End: 04-07-2020 Office Visit 04/07/2020 Office Visit Orthopaedics Ceci Che [facility] [address] [place] [address] [phone] [facility] Start: 04-04-2020 End: 04-04-2020 Pre-Operative Nurse Assessment 04/04/2020 Pre-Operative Nurse Assessment Multispecialty [facility] Pre Admission Testing Start: 03-10-2020 End: 04-06-2020 Radiography of hand [facility] Comment on above: Expected: 03/10/2020 , Expires: 04/06/2020 1 Occurrences starti ng 03/10/2020 until 03/10/2020 Start: 02-04-2020 End: 02-04-2020 Office Visit 02/04/2020 Office Visit Family Medicine Parmjit Enrique MD [address] [place] [address] [phone] [facility] Start: 02-01-2020 End: 01-31-2021 [facility] CYTOLOGY-BODY ENGINEER, LIQUID BASED [facility] CYT[facility]Y-BODY ENGINEER, LIQUID BASED Cytology Routine Screening for cervical cancer Screening for STDs (sexually transmitted diseases) Expected: 02/01/2020, Expires: 01/31/2021 [facility] Comment on above: Expected: 02/01/2020 , Expires: 01/31/2021 Start: 2018 Screening for malign ant neoplasm of cervix CERVICAL CANCER SCREENING DISCUSSION [facility] Start: 2016 Third diphtheria, te tanus and acellular pertussis (DTaP) vaccination TDAP (ADULT) [facility] Start: 2015 Tetanus vaccination TETANUS [facility] Start: 2013 COVID-19 VACCINE (1) COVID-19 VACCIN E (1) [facility] Start: 2013 Screening for Chlamy galo trachomatis CHLAMYDIA SCREEN [facility] Start: 2012 HIV screening HIV SCREENING DISCUSSION [facility] Start: 2012 Vaccination for josh n papillomavirus HPV VACCINES (1 - Female 3-dose series) Start: 2010 HIV screening HIV SCREENING DISCUSSION [facility] Start: 2009 COVID-19 VACCINE (1) COVID-19 VACCIN E (1) [facility] Start: 2008 Vaccination for josh n papillomavirus [facility] Start: 2002 COVID-19 VACCINE (1) COVID-19 VACCIN E (1) [facility] Start: 1997 GONORRHEA SCREEN GONORRHEA SCREEN [facility] Start: 1997 Screening for malign ant neoplasm of cervix Bacteria identified Cx Nom (U) [facility] BETA STREP, VAGINAL SCREEN BETA STREP, VAGINAL SCREEN Microbiology Routine 36 weeks gestation of 01/26/2021 3:12 PM EDT [facility] CBC W Auto Different ial panel - Blood [facility] Chlamydia deoxyribonucleic acid detection [facility] CHLAMYDIA/GONOCOCCUS, JIMMY CHLAMY GALO/GONOCOCCUS, JIMMY Microbiology STAT 02/08/2021 10:30 PM EDT [facility] Complete blood count with white cell differential, automated CBC, EDIF, PLATELET Lab Routine 28 weeks gestation of 11/28/2020 4:02 PM EST [facility] anatomy study [facility] Group B Streptococcu s Culture Group B Streptococcus Culture [facility] Work Phone: HEPATITIS B SURFACE ANTIGEN HEPATITIS B SURFACE ANTIGEN Lab Routine 10 weeks gestation of 06/24/2020 5:36 PM EDT [facility] Hepatitis C antibody measurement [facility] PAP IG, CT-NG, RFX H PV ASCU PAP IG, CT-NG, RFX HPV ASCU LAB SEND OUTS Routine 02/01/2020 10:[address] [facility] Patient Education Kick Counts ED False Labor OB Triage: Return to Hospital or Notify Physician if you Experience: [facility] Work Phone: Patient referral [facility] Work Phone: Procedure [facility] Radiography of hand XR HAND RIGH T 3+ VIEWS Imaging Routine Ganglion cyst of wrist, right 03/10/2020 10:[address] [facility] Reagin Ab RPR Ql (S) [facility] Rubella IgG measurement [facility] RUBELLA IMMUNE STATU S IGG ANTIBODY RUBELLA IMMUNE STATUS IGG ANTIBODY Lab Routine 10 weeks gestation of 06/24/2020 5:35 PM [facility] Serologic test for syphilis [facility] T4 free measurement [facility] Thyroid stimulating hormone measurement [facility] Thyroperoxidase Ab [Units/volume] in Serum or Plasma [facility] Transvaginal obstetr ic ultrasonography [facility] Ultrasonography in f irst trimester [facility] Ultrasound scan for growth [facility] US OB LIMITED/NERISSA US OB LIMITED/ NERISSA Imaging Routine Uncertain lie of fetus, single or unspecified fetus 02/02/2021 2:44 PM [facility] VARICELLA IGG AB (IM M STATUS) VARICELLA IGG AB (IMM STATUS) Lab Routine 10 weeks gestation of 06/24/2020 5:35 PM [facility] [place], [place] Immunizations Immunization Date Immunization Notes Care Provider Fa cility 09-03-2024 influenza, seasonal, injectable, preservative free Dr. Laureen Rasmussen MD Work Phone: [facility] 11-28-2023 tetanus toxoid, redu amish diphtheria toxoid, and acellular pertussis vaccine, adsorbed No Primary Care Physician [facility] 09-23-2023 influenza, injectabl e, quadrivalent, preservative free No Primary Care Physician [facility] 09-24-2022 influenza, injectabl e, quadrivalent, preservative free Dr. Fanta Zarate Work Phone: [facility] 09-07-2021 Covid ([employer]) [facility] 07-11-2021 influenza, injectabl e, quadrivalent, preservative free Dr. Fanta Zarate Work Phone: [facility] 07-11-2021 influenza, seasonal, injectable [facility] Work Phone: 07-11-2021 influenza, seasonal, injectable, preservative free Dr. Laureen Rasmussen MD Work Phone: [facility] 07-11-2021 Seasonal, quadrivale nt, recombinant, injectable influenza vaccine, preservative free Dr. Laureen Rasmussen MD Work Phone: [facility] 12-12-2020 diphtheria, tetanus toxoids and acellular pertussis vaccine, unspecified formulation [facility] 12-12-2020 tetanus toxoid, redu amish diphtheria toxoid, and acellular pertussis vaccine, adsorbed; Translations: [TDAP VACCINE >10YO 0.5ML IM] [facility] 12-25-2017 varicella virus vaccine [facility] 07-09-2017 meningococcal ACWY vaccine, unspecified formulation [facility] 07-09-2017 meningococcal polysaccharide (groups A, C, Y and W-135) diphtheria toxoid conjugate vaccine (MCV4P) Dr. Laureen Rasmussen MD Work Phone: [facility] 07-09-2017 varicella virus vaccine [facility] 04-14-2013 hepatitis A vaccine, pediatric/adolescent dosage, [address] Laureen Rasmussen MD Work Phone: [facility] 04-08-2013 hepatitis A vaccine, pediatric/adolescent dosage, 2 dose schedule [facility] 05-21-2012 hepatitis A vaccine, pediatric/adolescent dosage, 2 dose schedule [facility] 05-21-2012 meningococcal ACWY vaccine, unspecified formulation [facility] 05-21-2012 meningococcal polysaccharide (groups A, C, Y and W-135) diphtheria toxoid conjugate vaccine (MCV4P) Dr. Laureen Rasmussen MD Work Phone: [facility] 05-21-2012 tetanus toxoid, redu amish diphtheria toxoid, and acellular pertussis vaccine, adsorbed [facility] 09-16-2009 novel [id number], preservative-free, injectable Dr. Laureen Rasmussen MD Work Phone: [facility] 06-02-2003 diphtheria, tetanus toxoids and acellular pertussis vaccine [facility] 06-02-2003 poliovirus vaccine, inactivated [facility] 06-04-2001 diphtheria, tetanus toxoids and acellular pertussis vaccine [facility] 05-08-2000 haemophilus influenz ae type b vaccine, conjugate unspecified formulation [facility] 05-08-2000 haemophilus influenz ae type b vaccine, PRP-T conjugate Dr. Laureen Rasmussen MD Work Phone: [facility] 05-08-2000 measles, mumps and rubella virus vaccine [facility] 01-15-2000 diphtheria, tetanus toxoids and acellular pertussis vaccine [facility] 01-15-2000 haemophilus influenz ae type b vaccine, conjugate unspecified formulation [facility] 01-15-2000 haemophilus influenz ae type b vaccine, PRP-T conjugate Dr. Laureen Rasmussen MD Work Phone: [facility] 01-15-2000 hepatitis B vaccine, pediatric or pediatric/adolescent dosage [facility] 01-15-2000 poliovirus vaccine, inactivated [facility] 09-20-1999 diphtheria, tetanus toxoids and acellular pertussis vaccine [facility] 09-20-1999 measles, mumps and rubella virus vaccine [facility] 09-20-1999 poliovirus vaccine, inactivated [facility] 09-20-1999 trivalent poliovirus vaccine, live, oral Dr. Laureen Rasmussen MD Work Phone: [facility] 06-01-1998 diphtheria, tetanus toxoids and acellular pertussis vaccine [facility] 06-01-1998 haemophilus influenz ae type b conjugate and Hepatitis B vaccine Dr. Laureen Rasmussen MD Work Phone: [facility] 06-01-1998 haemophilus influenz ae type b vaccine, conjugate unspecified formulation [facility] 06-01-1998 hepatitis B vaccine, pediatric or pediatric/adolescent dosage [facility] 06-01-1998 poliovirus vaccine, inactivated [facility] 06-01-1998 trivalent poliovirus vaccine, live, oral Dr. Laureen Rasmussen MD Work Phone: [facility] 1997 hepatitis B vaccine, pediatric or pediatric/adolescent dosage [facility] Payers Date Payer Category Payer Unknown [id number] 2020 Unknown [facility] xxxxxxxxxxxx 2020-Present [id number] 2020 Unknown [id number] 2018 Self-pay 2018 Unknown 2017 Unknown [id number] 1997 Unknown [id number] [id number] 1997 Unknown [id number] 2.16.840.1.662023.3.579.2.356 1997 Unknown [id number] 2.16.840.1.884090.3.579.2.356 1997 Unknown [id number] 2.16.840.1.482488.3.579.2.717 1997 Unknown [id number] 2.16.840.1.770347.3.579.2.717 1997 Unknown [id number] 2.16.840.1.204909.3.579.2.479 Unknown [employer] RCIAL MISCELLANEOUS Effective for all dates xxxxxx [id number] [id number] Unknown [id number] Unknown [id number] Unknown [id number] [id number] Unknown [id number] [id number] Unknown [id number] 2.16.840.1.693007.3.579.2.462 Unknown [id number] 2.16.840.1.088657.3.579.2.462 Unknown [id number] 2.16.840.1.448622.3.579.2.462 Unknown [id number] 2.16.840.1.503556.3.579.2.462 Unknown [id number] 2.16.840.1.564059.3.579.2.462 Unknown [id number] [id number] Unknown [id number] [id number] Social History Date Type Detail Facility Start: 11-09-2018 End: 05-14-2025 Tobacco smoking status NHIS Never smoker Start: 08-12-2018 Alcohol Comment wine-occassions [facility] Start: 1995 Sex Assigned At Not on file O [facility] Start: 02-01-2020 End: 02-04-2020 Alcohol intake Current drinker of alcohol (finding) [facility] Start: 02-04-2020 End: 10-24-2020 History SDOH Alcohol Std Drinks 1 [facility] Start: 02-04-2020 History SDOH Alcohol Binge 5 [facility] Start: 02-01-2020 Alcohol Comment occ [facility] Exposure to SARS-CoV -2 (event) Not sure [facility] Start: 02-01-2020 End: 03-10-2020 Tobacco use and exposure Never used [facility] Start: 04-04-2020 End: 10-24-2020 History SDOH Alcohol Frequency 4 [facility] Start: 04-04-2020 End: 10-24-2020 History SDOH Alcohol Binge 99 [facility] Exposure to SARS-CoV -2 (event) Yes [facility] Start: 04-28-2020 End: 10-24-2020 History SDOH IPV Fear 2 [facility] Start: 06-14-2020 End: 08-24-2021 Alcohol intake Ex-drinker (finding) [facility] Start: 06-14-2020 End: 10-24-2020 History SDOH Social Connections Living 3 [facility] Start: 04-29-2020 [facility] Start: 1995 Sex Assigned At Female W [facility] Start: 06-21-2022 End: 01-13-2024 Tobacco smoking status NHIS Unknown if ever smoked [facility] Sex Female [facility] Goals Date Patient Goal Desired Activity /State Functional Status Date Assessment Result Facility 06-22-2022 Functional status Activity Ability Indepe ndent [facility] Work Phone: Mental Status Date Assessment Result Facility 06-22-2022 Cognitive function Appropriate;Andrea linares [facility] Work Phone: Clinical Notes 01-26-2021 to 06-23-2025 Note Date & Type Note Facility 06-23-2025 Progress note [facility] 06-23-2025 Progress note Note Date/Time June 23, 2025 2:46pm [facility] [address], [address] [place] [address] OFFICE VISIT Date of Service: 06/23/25 MR#: [id number] Acct: [id number] Name: NAYELI HERNANDEZ Rep #: [id number] : 1995 Provider: Dr. Cisco Zarate MD Age/Sex: 29/F Location: [facility] Status: Signed Intake Vital Signs 04/27/25 14:36 05/27/25 14:55 06/23/25 14:14 Height 5 ft 2 in 5 ft 2 in 5 ft 2 in Weight: 163 lb 8 oz BMI 29.9 BP 113/75 Intake Visit Reasons: 12wk ob Chairman Of The Board Required: No Is patient in pain?: No Allergies No Known Allergies Allergy (Verified 06/23/25 14:14) Medications ?Medication ?Instructions ?Recorded ?Confirmed ?Type ctszijrv-dhd-De-FA 1 mg 1 tab PO DAILY pregna [...] Family history of autistic disorder Surgical History Kelford teeth extracted History of surgery Family History Grandmother Breast cancer, Onset Age: 65 maternal Aunt Breast cancer, Onset Age: 60 Maternal Sister Thyroid disorder Mother Thyroid disorder Hypertension Sister Thyroid disorder Father Hypertension Social History adopted: No household members: spouse and children number of children: 3 current occupational status: employed 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 History of depres cecilia, currently acute May 27, 2025 2:53pm History of shoulder dystocia in prior , currently acute May 27 2:53pm Hx of oligohydramnios in [place]inda or , currently acute 2024 2:53pm acute May 27, 025 2:53pm Supervision of high-risk acute May 27 2:53pm [facility] Work Phone: 1(224) 399-727508-21-2025 Evaluation note* Diagnosis Onset Date Resolution Status Admit Date 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 History of depression, currently acute [...] of high-risk acute June 23, 2025 1:52pm [facility] Work Phone: 1(685) 567-731308-21-2025 Progress [facility] [address] [place] [address], [address] [place] [address] OFFICE VISIT Date of Service: 05/27/25 MR#: [id number] Acct: [id number] Name: NAYELI HERNANDEZ Rep #: [id number] : 1995 Provider: CHICO Virk Age/Sex: 29/F Location: [facility] Status: Signed Intake Vital Signs 11/18/24 08:47 04/27/25 14:36 05/27/25 14:55 Height 5 ft 2 in 5 ft 2 in 5 ft 2 in Weight: 164 lb BMI 29.9 BP 106/71 Intake Visit Reasons: *EST* NOB LMP 03/20, PRANAY 12/25 Chief Complaint: New OB Chairman Of The Board Required: No Is patient in pain?: No Allergies No Known Allergies Allergy (Verified 05/27/25 14:54) Medications ?Medication ?Instructions ?Recorded ?Confirmed ?Type xbrckntq-xrt-Bo-FA 1 mg 1 tab PO DAILY pregna ncy 04/23/22 05/27/25 History tablet valacyclovir 1 gram tablet 2,000 mg (2 x 1 gram) PO BI D PRN 03/24/25 05/27/25 Rx (Valtrex) cold sore #4 tabs Last Menstrual Period: 03/20/25 PFSH PFSH Medical History History of shoulder dystocia Anxiety depression Seasonal allergies Family history of autistic disorder Surgical History Kelford teeth extracted History of surgery Family History Grandmother Breast cancer, Onset Age: 65 maternal Aunt Breast cancer, Onset Age: 60 Maternal Sister Thyroid disorder Mother Thyroid disorder Hypertension Sister Thyroid disorder Father Hypertension Social History adopted: No household members: spouse and children number of children: 3 current occupational status: employed 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 Daniela Santos 01/14/24 Merelyn 37 live - full term 6lbs 11oz Female epidural [facility] JV Ericka Delivery Date: 02/12/21 Last Updated by: Huma Dietrich IOL- failure to progress, head stuck on hip Delivery Date: 06/21/22 Last Updated by: Huma Dietrich IOL-early labor 2 wks, shoulder dystocia Delivery Date: 01/14/24 Last Updated by: Beryl Asad, RN IOL 37 oligo HPI *EST* NOB [...] (Rh) Sensitized, Pulmonary (e.g.,TB,Asthma), Drug/latex allergies/reactions, Breast, Carbon Furnace Operator Helper surgery, Anesthetic complications, History of abnormal pap, [...] Monitoring, Signs and Symptoms of Preeclampsia and [place] Education ROS Const Reports system reviewed and [...] Cosigner Signature: Date (if applicable) CC: ~ [facility]08-21-2025 Progress note Author Juliet Virk [facility] Note Date/Time May 27, 2025 3: 20pm [facility] [address], [address] [place] [address] OFFICE VISIT Date of Service: 05/27/25 MR#: [id number] Acct: [id number] Name: NAYELI HERNANDEZ Rep #: [id number] : 1995 Provider: CHICO Virk Age/Sex: 29/F Location: [facility] Status: Signed Intake Vital Signs 11/18/24 08:47 04/27/25 14:36 05/27/25 14:55 Height 5 ft 2 in 5 ft 2 in 5 ft 2 in Weight: 164 lb BMI 29.9 BP 106/71 Intake Visit Reasons: *EST* NOB LMP 03/20, PRANAY 12/25 Chief Complaint: New OB Chairman Of The Board Required: No Is patient in pain?: No Allergies No Known Allergies Allergy (Verified 05/27/25 14:54) Medications ?Medication ?Instructions ?Recorded ?Confirmed ?Type wcvjhkcz-oer-Ot-FA 1 mg 1 tab PO DAILY pregna ncy 04/23/22 05/27/25 History tablet valacyclovir 1 gram tablet 2,000 mg (2 x 1 gram) PO BI D PRN 03/24/25 05/27/25 Rx (Valtrex) cold sore #4 tabs Last Menstrual Period: 03/20/25 PFSH PFSH Medical History History of shoulder dystocia Anxiety depression Seasonal allergies Family history of autistic disorder Surgical History Kelford teeth extracted History of surgery Family History Grandmother Breast cancer, Onset Age: 65 maternal Aunt Breast cancer, Onset Age: 60 Maternal Sister Thyroid disorder Mother Thyroid disorder Hypertension Sister Thyroid disorder Father Hypertension Social History adopted: No household members: spouse and children number of children: 3 current occupational status: employed 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 Daniela Burchatt 01/14/24 Merelyn 37 live - full term 6lbs 11oz Female epidural [facility] JV Ericka Delivery Date: 02/12/21 Last Updated by: Huma Dietrich IOL- failure to progress, head stuck on hip Delivery Date: 06/21/22 Last Updated by: Huma Dietrich IOL-early labor 2 wks, shoulder dystocia Delivery Date: 01/14/24 Last Updated by: Beyrl Kamara RN IOL 37 oligo HPI *EST* [...] (Rh) Sensitized, Pulmonary (e.g.,TB,Asthma), Drug/latex allergies/reactions, Breast, Carbon Furnace Operator Helper surgery, Anesthetic complications, History of abnormal pap, [...] 7lbs 11oz, last delivery was fine (5) Ulis Felipe's disease: Status: Acute Comment: - self [...] Cosigner Signature: Date (if applicable) CC: ~ [facility] Work Phone: 1(654) 714-786208-02-2025 Evaluation note* Diagnosis Onset Date Resolution Status Admit Date Luis Felipe's disease acute Aug2024 2:53pm History of depres cecilia, currently acute May 27, 2025 2:53pm History of shoulder dystocia in prior , currently acute May 27 2:53pm Hx of oligohydramnios in [place] , currently acute Au 2024 2:53pm acute May 27 025 2:53pm Supervision of high-risk acute May 27 2:53pm [facility] Work Phone: 1(537) 257-202104-10-2024 Progress note Author Liza Park [facility] January 15, 2024 8:19am Note Date/Time January 15, 2024 8:1 9am [facility] Medical Records Department [address] [place] [address] Progress Note - OBGYN 01/15/24 0817 MR#: [id number] Acct: [id number] Name: NAYELI HERNANDEZ Rep #:[id number] : 1995 28 From: Liza Park CNM PCP: Care Physician,No Primary Status :ADM IN Location: [place] [address] Subjective Subjective Patient doing well without complaints. [...] 4. rubella immune 5. d/c home today. 01/15/24818 <Electronically signed by Liza Park CNM> Cosigner Signature (if applicable): CC: ~ Signed [facility] Work Phone: 1([phone]) 997-950504-09-2024 Discharge summary Author Radha Villalobos [facility] January 14, 2024 1:05am Note Date/Time January 14, 2024 1:05 am [facility] Medical Records Department [address] [place] [address] Instructions for Home/Discharge Instructions 01/14/24103 MR#: [id number] Acct: [id number] Name: NAYELI HERNANDEZ Rep #:[id number] : 1995 28 From: [...] Up With: Radha Jin DO When: Call [phone] to make an appointment with your doctor in 6 weeks. If you had elevated blood pressure or 4th degree laceration, you will need to be seen in 2 weeks. Test Results: Test results from this visit will be discussed in further detail at your follow- up appointment, if applicable. Discharge Plan Admission Admit Date/Time: 01/13/24 12:39 Attending Provider: Radha Jin Primary Care Provider: Rosio Greer Primary Discharge Orders/Prescriptions Prescriptions: No Action sertraline [Zoloft] 50 mg tablet 50 mg PO DAILY Qty: 90 4RF 1 mg Tablet 1 tab PO DAILY Referrals / Follow Up: Care Physician,No Primary [Primary Care Provider] - 01/14/24104<Electronically signed by Radha Jin DO>Radha Jin DO CC: No Primary Care Physician ~ Signed [facility] Work Phone: 1(136) [phone] Procedure [facility] 01-13-2024 Progress note Author Radha Villalobos [facility] January 13, 2024 5:22pm Note Date/Time January 13, 2024 5:22 pm [facility] Medical Records Department [address] [place] [address] Progress Note 01/13/24 1720 MR#: [id number] Acct: [id number] Name: NAYLEI HERNANDEZ Rep #:[id number] : 1995 28 From: Radha Jin DO PCP: Care Physician,No Primary Status :ADM IN Location: [address] Progress Note pt is status post one dose of cytotec and consents to either a mcgovern balloon or arom. current tracing: FHT: Moderate variability reactive no decelerations category I tracing [place]: q2-3 min Contractions cx: internally is 3-4/ external 2/70/-2, membranes ruptured with clear fluid return A/P: pt wants epidural before starting pitocin 01/13/241721 <Electronically signed by Radha Jin DO> Radha Louise Signature (if applicable): CC: ~ Signed [facility] Work Phone: 1([phone]) 593-856504-08-2024 History and physical note Author Fanta Zarate [facility] January 13, 2024 2:28pm Note Date/Time January 13, 2024 2:28 pm [facility] Medical Records Department [address] [place] [address] History & Physical Exam 01/13/24 1428 MR#: [id number] Acct: [id number] Name: NAYELI HERNANDEZ Rep #:[id number] : 1995 28 From: Fanta freeman MD PCP: Care Physician,No Primary Status :ADM IN Location: [place] [address] History and Physical Vital Signs 01/07/2414:50 01/12/2411:31 01/12/2411:33 01/13/2412:01 Height 5 ft 2 in 5 ft 2 in 5 ft 2 in Weight: 164 lb BMI 29.9 BP 116/75 Intake Visit Reasons: 37 WK OB PER JV Chairman Of The Board Required: No Is patient in pain?: No Allergies No Known Allergies Allergy (Verified 01/13/24 12:46) Medications sxnqpmje-faj-Ia-FA 1 mg tablet 1 tab PO DAILY 04/23/22 [History Confirmed 01/13/24] sertraline 50 mg tablet (Zoloft) 50 mg PO DAILY anxiety #90 tabs 11/13/23 [Rx Confirmed 01/13/24] Last Menstrual Period: 04/26/23 Zika: Zika virus screening: Negative : No PFSH PFS Medical History (Updated 01/13/24 @ 14:[address] 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 epidural [facility] Dr. Daniela Santos Delivery Date: 02/12/21 [...] ? -?-?-?-?-?-?-?-?-?-?-?-?- ? kw-no vb/cramping. Formal US ordered-WC 08/19/23-?-?-?-?-?-?-?-?-?-?-?-?- 16w 3d 149 lb 6 oz [...] oz and the plan was to consult m for an amnio and early delivery before baby gets over 7 lbs due to 1 min shoulder dystocia with last . will wait for results before consulting MFM. 01/13/24-?-?-?-?-?-?-?-?-?-?-?-?- 37w 3d 164 lb 116/75 -?-?-?-?-?-?- [...] comfortable and no acute distress Orientation: alert HENMT Head: normal to inspection, normocephalic and atraumatic [...] PRR , PRANAY 01/30/23 girl Merelyn PC Rav[place], [place], -Ericka (4) : Status: Acute Qualifiers: [...] any complications: none I have reviewed the [facility] and made any clinically relevant updates. 01/13/24 1428 <Electronically signed by Fanta Zarate MD> Cosigner Signature (if applicable): CC: Dr. Fanta Zarate MD; No Primary Care Physician~ Signed [facility] Work Phone: 1(970) 145-586009-18-2023 NotePap Smear Specimen AdequacySeptember 2022 10:16amComment.Satisfactory for evaluation. Endocervical and/or squamous metaplasticcells (endocervical component)are present.[facility] INTERFACED A#[id number] Clinic South Pointe HospitalComment on above:Satisfactory for evaluation. Endocervical and/or squamous metaplasticcells (endocervical component)are present.06-24-2023 NotePap Smear Specimen AdequacySeptember 2022 10:16amComment.Satisfactory for evaluation. Endocervical and/or squamous metaplasticcells (endocervical component)are present.[facility] INTERFACED A#[id number] Health Springfield Regional Medical CenterComment on above:Satisfactory for evaluation. Endocervical and/or squamous metaplasticcells (endocervical component)are present.06-24-2023 NotePap Smear Specimen AdequacySeptember 2022 9:16amComment.Satisfactory for evaluation. Endocervical and/or squamous metaplasticcells (endocervical component)are present.[facility] INTERFACED A#[id number] Health Springfield Regional Medical CenterComment on above:Satisfactory for evaluation. Endocervical and/or squamous metaplasticcells (endocervical component)are present.11-17-2021 History of Present illness Narrative* Parmjit Enrique MD - 11/17/2021 10:50 AM EST Follow Up Visit Nayeli Hernandez [id number] 1995 11/17/2021 Chief Complaint Patient presents with Anxiety History of Present Illness: Nayeli Hernandez is a 26 y.o. female presenting for follow up of Pt herefor a follow up: Pt was started on zoloft due to anxiety issues; while on the zoloft she had some really bad lows; has been in [facility] for counseling (needs a referral sent there [...] Laterality: Right; Surgeon: Gerri Hicks MD; Location: [facility] OR EGD DIAGNOSTIC 2019 WISDOM TEETH [...] 2 g, Rfl: 11 ergocalciferol 1.25 MG (37588 UT) capsule, Take 50,000 Units by mouth [...] Use Authorization (EUA) for the qualitative detection [id number] nucleic acid. No images are attached to [...] HEALTH Parmjit Enrique MD [facility] History of Present illness Narrative* [...] daily. 2 g 11 ergocalciferol 1.25 MG (86543 UT) capsule Take 50,000 Units by mouth [...] or bloody stools. No urinary tract symptoms. BODY ENGINEER ROS: no breast pain or new or [...] return annually or prn documented in this encounterKn[facility]05-23-[facility]21 Emergency department Note* Sagar Rodriguez MD - 02/26/2021 10:02 PM EDT Emergency Department Report [facility] EMERGENCY DEPARTMENT Service Date:.02/26/21 PCP: Parmjit Enrique [...] Surgeon: Gerri Hicks MD; Location: [facility] OR EGD DIAGNOSTIC 2019 WISDOM TEETH [...] and Family: Three times a week Attends Restorationism Services: Not on file Active Member of [...] 2) 63 kg (138 lb 14.2 oz) 02/26/212144 114/64 99.7 F (37.6 C) Oral 83 [...] information. . . Sagar Rodriguez MD 02/26/21 2244 documented in this encounterKn[facility]05-06-2021 Miscellaneous Notes* Nursing Notes - Beryl Winters RN - 02/09/2021 12:26 AM EDT Patient given discharge instructions. Questions encouraged and answered. Education provided. Patient verbalizes understanding. Denies any needs. Patient ambulated off unit to home with significant other. * Nursing Notes - Beryl Winters RN - 02/09/2021 12:16 AM EDT This nurse called back to let Dr. Fang know Category 1 tracing. Alright to discharge [...] office with Dr. Amor. documented in this encounterKnox [facility]05-05-2021 History of Present illness Narrative* Isabel Virk RN - 02/08/2021 10:45 PM EDT Pt arrives on unit 38+3, c/o leaking of fluid since about 1730 this evening, pt also reports ctx q 2-3 mins x 2 days. +FM denies VB. Pt denies complications with this but does report GBS+ status. Monitors placed, VS obtained, SVE, and swabs obtained. documented in this encounterKnox [facility]05-04-2021 History of Present illness Narrative* Mady Amor MD - 02/07/2021 10:20 AM EDT [facility] 25 y.o. at 38w2d Anxiety, GBS+ -VB, -LOF, -Ctx, +FM She reports painful contractions since yesterday. She is now having back pain, as well. Today: Cervix closed - IOL scheduled for 1899 on 5/9/21 starting with cervical ripening. No future appointments. documented in this [facility]05-04-2021 Procedure note* Mady Amor MD - 02/07/2021 10:20 AM EDT Associated Order(s): PA NON-STRESS TEST Procedure(s): PA NON-STRESS TEST Pre-Procedure Diagnose(s): Uterine contractions during Post-Procedure Diagnose(s): Uterine contractions during Non-stress Test Gestational age: 38w2d Indication: Rule out labor Baseline: 135 bpm 15x15s: present Variability: moderate Decelerations: absent Contractions: q1-2min Duration >20 minutes Comments: REACTIVE 02/07/21 Mady Amor MD documented in this [facility]05-03-2021 Miscellaneous Notes* Nursing Notes - Karla Krishnan [...] provide a urine sample. documented in this [facility]05-03-2021 Hospital Discharge instructions* Instructions* Karla Krishnan RN - 02/06/2021 [place] Padilla Contractions: Care Instructions Your Care Instructions Christian Padilla contractions prepare your uterus for labor. Think of them as a warm-up exercise that your body does. You may begin to feel them between the 28th and 30th weeks of your . But they start as early as the 20th week. [place] Padilla contractions usually occur more often during [...] Where can you learn more? Go to http://www.Triptelligent.osu.edu/patiented. Enter Z402 in the search box to learn more about 'Christian Padilla Contractions: Care Instructions.' Interested in seeing a video go to https://Triptelligent.Interactive TKOu.edu/videolibrary to see all video content. Current as of: July 14, 2020 Content Version: 12.8 [employer]. Care instructions adapted under license by your healthcare professional. If you have questions about a medical condition or this instruction, always ask your healthcare professional. [employer] disclaims any warranty or liability for your [...] you aren't sure, call your doctor or manager pmo.As your labor progresses, check in with your doctor or manager pmo about when to come back to the [...] off your contractions. Ask your partner, labor living coach, or preventative maintenance technician for a massage. Shoulder and low back massage during contractions may ease your pain. Strong massage of the back muscles (counterpressure) during contractions may help relieve the pain of back labor. Tell your labor living coach exactly where to push and how hard to push. Use imagery. This means using your imagination to decrease your pain. For instance, to help manage pain, picture your contractions as waves rolling over you. Picture a peaceful place, such as a beachor mountain stream, to help you relax between [...] Where can you learn more? Go to http://www.weaurora east hospitalmedical.[facility].edu/patiented. Enter W539 in the search box to learn more about 'Early Stage of Labor at Home: Care Instructions.' Interested in seeing a video go to [email or web address].osu.edu/videolibrary to see all video content. Current as of: July 14, 2020 Content Version: 12.8 [employer]. Care instructions adapted under license by your healthcare professional. If you have questions about a medical condition or this instruction, always ask your healthcare professional. [employer] disclaims any warranty or liability for your use of this information. documented in this [facility]04-29-2021 History of Present illness Narrative* Rosita Chacon [...] movement. Denies any concerns documented in this [facility]04-22-2021 History of Present illness Narrative* Mady Amor MD - 01/26/2021 8:30 AM EDT [facility] 25 y.o. at 36w4d Anxiety -VB, -LOF, -Ctx, +FM Today: GBS collected. Cervix closed. No issues - Return OB visit in 1 week. Future Appointments Date Time Provider Department Center 02/02/2021 1:30 PM ADALBERTO Maldonado 043OG [facility] * Keeley Alan LPN - 01/26/2021 [...] N/A 36w4d GBS pending documented in this encounterKnox Community HospitalEvaluation note* Diagnosis 36 weeks gestation of - Primary state, incidental Family history of clotting disorder Family history of other blood disorders documented in this encounter [facility]* Diagnosis Encounter for supervision of normal first in third trimester- Primary Supervision of normal first Uncertain lie of fetus, single or unspecified fetus Anxiety Anxiety state, unspecified 37 weeks gestation of state, incidental documented in this encounter [facility]* Diagnosis Uncertain lie of fetus, single or unspecified fetus documented in this encounter [facility]* Diagnosis Encounter for elective induction of labor- Primary Anxiety Anxiety state, unspecified Family history of clotting disorder Family history of other blood disorders Uterine contractions during documented in this encounter [facility]* Diagnosis Dysuria- Primary documented in this encounter [facility]* Diagnosis Routine general medical examination at a health care facility- Primary documented in this encounter [facility]* Diagnosis Anxiety disorder, unspecified type- Primary Dysthymia Dysthymic disorder documented in this encounter [facility] HospitalEvaluation noteNo assessment information availableWCleveland Clinic South Pointe Hospital Work Phone: Evaluation note* Diagnosis Onset Date Resolution Status [facility] Work Phone: Evaluation note* Diagnosis Onset Date Resolution Status acute [facility] Work Phone: Evaluation note* Diagnosis Onset Date Resolution Status acute acute acute acute Vaginal delivery [facility] Work Phone: Evaluation note* Diagnosis Onset Date Resolution Status H/O depression, currently acute History of shoulder dystocia acute acute Supervision of high-risk acute [facility] Work Phone: evaluation note* Diagnosis Onset Date Resolution Status H/O depression, currently acute History of shoulder dystocia acute acute Supervision of high-risk acute H/O depression, currently acute History of shoulder dystocia acute acute Supervision of high-risk acute [facility] Work Phone: evaluation note* Diagnosis [...] acute Supervision of high-risk acute [facility] Work Phone: evaluation note* Diagnosis [...] acute Supervision of high-risk acute [facility] Work Phone: evaluation note* Diagnosis [...] acute Supervision of high-risk acute [facility] Work Phone: Evaluation note* Diagnosis Onset Date [...] resolved Supervision of high-risk resolved [facility] Work Phone: Hospital Discharge instructions* Instructions* Beryl [...] healthcare provider may describe these contractions as Christian- Padilla or signs of false labor. These [...] away. 2016 - May 14, 2019, [facility]. This handout is for informational purposes only. Talk with your doctor or healthcare team if you have any questions about your care. For more health information call the EL[employer]ZA Information at [phone] or email: [email or web address]. Signs of Labor Mucus plug Some women [...] effaced. 2016 - May 14, 2019, [facility]. This handout is for informational purposes only. Talk with your doctor or healthcare team if you have any questions about your care. For more health information call the [facility] Information at [phone] or email: [email or web address]. documented in this [facility]* Attachments The following attachments cannot be sent through Care Everywhere. * Dysuria (Taiwanese) documented in this encounterProMedica [facility] for referral (narrative)* Consultation (Routine) - New Request Specialty Diagnoses / Procedures Referred By Nancy jasmine Referred To Contact Diagnoses Anxiety disorder, unspecified type Dysthymia Parmjit Enrique MD [address] [place] [address] Referral ID Status Reason Start Date Expiration Date V isits Requested Visits Authorized [id number] New Request 11/21/2021 12/16/2022 1 1 [facility] for referral (narrative)No reason for referral information availableHeart Center Of Indiana Services Work Phone: Instructions * Patient Instructions* [...] Instructions Your Care Instructions Herpes gingivostomatitis (say QWK-llq-weo-tpyb-qrv-ZX-tus) is a viral infection, caused by the [...] your doctor if your child can take iforcr-sdt-xjyrlzz medicine. Do not give aspirin to anyone [...] Log into your personal health record on https://[employer]. and enter Y555 in the Education box to learn more about Herpes Gingivostomatitis in Children: Care Instructions. Current as of: February 15, 2017 Content Version: 11.6 4188-1150 [employer]met[employer]. Care instructions adapted under license by your healthcare professional. If you have questions about a medical condition or this instruction, always ask your healthcare professional. [employer] disclaims any warranty or liability for your [...] you are older than 45 and are -Guinean or have a father or brother who got prostatecancer when he was younger than 65. When should you call for help? Watch closely for changes in your health, and be sure to contact your doctor if you have any problems or symptoms that concern you. Where can you learn more? Log into your personal health record on https://mygallt.[employer]. and enter P072 in the Education box to learn more about Well Visit, Ages 18 to 50: Care Instructions. Current as of: February 19, 2017 Content Version: 11.6 2811-9698 [employer]. Care instructions adapted under license by your healthcare professional. If you have questions about a medical condition or this instruction, always ask your healthcare professional. [employer] disclaims any warranty or liability for your [...] you are older than 45 and are -Guinean or have a father or brother who got prostatecancer when he was younger than 65. When should you call for help? Watch closely for changes in your health, and be sure to contact your doctor if you have any problems or symptoms that concern you. Where can you learn more? Log into your personal health record on https://mygallt.[employer]. and enter P072 in the Education box to learn more about Well Visit, Ages 18 to 50: Care Instructions. Current as of: February 19, 2017 Content Version: 11.6 1883-7225 [employer]. Care instructions adapted under license by your healthcare professional. If you have questions about a medical condition or this instruction, always ask your healthcare professional. [employer] disclaims any warranty or liability for your use of this information. in this encounter* Patient Instructions* Qing Love LPN - 06/14/2020 11:00 AM EDT 1 documented in this encounter History of Present Illness * Mady Farrell MD - 08/21/2018 1:18 PM EST Subjective Patient ID: Nayeli Sullivan is a 22 y.o. female. [facility] establish care. Patient is new [...] tomato based products. She has tried several bfap-yqb-dtoaaqq topical preparations. The following portions of the [...] AM EDT New Patient Visit Nayeli Hernandez [id number] 1995 02/04/2020 Chief Complaint Patient presents with Establish Care History of Present Illness: Nayeli Hernandez is a 24 y.o. 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 Madera for her physician gynecologist aspect; pthas seen covid pts in the [...] file Gets together: Not on file Attends jehovah's witness service: Not on file Active member of [...] concerns. documented in this encounter* Rosita Chacon APRN-AUTO HEADLIGHT MECHANIC - 06/30/2020 9:00 AM EDT Pt doing well. Denies concerns. 1. NOB cx's done today. Normal pap 02/01/2020. 2. Viability today inconsistent with LMP PRANAY. Changed to 02/19/2021. 3. OB reg labs reviewed, wnl. 4. Desires early gender scan, aware of cost and need to schedule. 5. Declines AFP Tetra screening. 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 Denies any other concerns at this time. [...] file Gets together: Not on file Attends jehovah's witness service: Not on file Active member of [...] culture performed due to age - MYRNA CYTOLOGY-BODY ENGINEER, LIQUID BASED; Future 3. Screening for STDs (sexually transmitted diseases) - MYRNA CYTOLOGY-BODY ENGINEER, LIQUID BASED; Future 4. Encounter for surveillance [...] sleeping better, using benadryl. 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 At [...] - 12/26/2020 1:30 PM EDT [facility] Ms. Nayeli Hernandez is a 25 [...] Provider Department Center 01/12/2021 9:00 AM Rosita Chacon APRN-AUTO HEADLIGHT MECHANIC 043OG [facility] Mady Amor MD documented in this encounter* Mady Amor MD - 01/12/2021 9:00 AM EDT [facility] 25 y.o. at 34w4d Anxiety -VB, -LOF, -Ctx, +FM Today: No issues - GBS at next visit - Return OB visit in 10 days. Future Appointments Date Time Provider Department Center 01/26/2021 8:30 AM [facility] * Qing Love LPN - 01/12/2021 9:00 [...] No June 21, 2022 7:44am Power of Berry Picker No June 7:44am Advance Directive Response Recorded Date/ Time Living Will No June 21, 2022 6:44am Power of Berry Picker No June 6:44am Advance Directive Response Recorded Date/ Time Name of Medical Power of Berry Picker ericka hernandez January 13, 2024 2:43pm Living Will Yes January 13, 2024 2:43pm Power of Berry Picker Yes January 12 2:43pm Reason for Referral Status Reason Specialty Diagnoses / Procedures Referred By Contact Referred To Contact New Request Diagnoses Ganglion cyst of wrist, right Procedures XR HAND RIGHT 3+ VIEWS Ceci Che, GIDEONC [address] [id number] Status Reason Specialty Diagnoses / Procedures Referred By Contact Referred To Contact Auth Not Needed Ultrasound Diagnoses 10 weeks gestation of Procedures US OB DATING ABDOMINAL < 14WEEKS Mady Amor MD [address] [place], [place] [id number] [facility] [address] [place], [place] [phone] Status Reason Specialty Diagnoses / Procedures Referre d By Contact Referred To Contact Closed Ultrasound Diagnoses 10 weeks gestation of Procedures US OB DATING ABDOMINAL < 14WEEKS Mady Amor MD [address] [facility] [address] [place], [place] [phone] [facility] [address] [place], [place] [phone] Status Reason Specialty Diagnoses / Procedures Referre d By Contact Referred To Contact Closed Diagnoses 20 weeks gestation of Procedures US OB ANATOMY Sandra Mchugh, CLEANING PORTER-AUTO HEADLIGHT MECHANIC [address] [place], [place] [phone] Status Reason Specialty Diagnoses / Procedures Referred By Contact Referred To Contact New Request Diagnoses Uncertain lie of fetus, single or unspecified fetus Procedures US OB LIMITED/NERISSA Rosita Chacon, CLEANING PORTER-AUTO HEADLIGHT MECHANIC [id number] [place] [address] Discharge Instructions * Instructions* Lois Cash RN - 04/28/2020 Nyaeli Mary 04/28/2020 GERRI HICKS M.D. HOME INSTRUCTIONS [...] free to contact your physician by calling [phone] ([phone]). If it is after hours you can contact the vocational examiner doctor by calling [facility] at [phone]. Prescription refills will only be done during [...] next business day for an appointment at [phone] ([phone]) documented in this encounter* Attachments The following attachments cannot be sent through Care Everywhere. 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 History of depression, darryl oliveira June 23, 2025 1:52pm History of shoulder dystocia in prior , currently June 23, 2025 1:52pm Hx of oligohydramnios in belinda or , currently June 23, 2025 1:52pm June 23, 2025 1:52pm Supervision of high-risk Rachell zachary 2024 1:52pm Additional Source Comments Reason for Visit (unrecogniz ed section and content) Reason Comments Establish Care Mouth Lesions Reason Comments Establish Care Reason Comments New Patient right wrist cyst Status Reason Specialty Diagnoses / Procedures Referred By Contact Referred To Contact New Request Diagnoses Ganglion cyst of wrist, right Procedures XR HAND RIGHT 3+ VIEWS Ceci Che, GIDEONC [address] [place] [address] Reason Comments Cyst Pre-operative Evaluation Status Reason Specialty Diagnoses / Procedures Referre d By Contact Referred To Contact Diagnoses Ganglion of right wrist Ganglion of right wrist [M67.431] Procedures PA EXC FABBY/VASC MAL SFT TISS HAND/FNGR SUBQ [...] Mady Amor MD [address] [place] [address] [facility] [address] [place] [address] Reason Comments 11.1 weeks Reason Comments 16w1d, sciatic pain, loosing hair. 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 Last pap 12/2018 a [facility] [...] of Procedures US OB ANATOMY Sandra Mchugh, CLEANING PORTER-AUTO HEADLIGHT MECHANIC [address] [place] [address] Reason Comments 34w4d, patient denie s any problems Reason Comments 36.4 Reason Comments 37.4 Status Reason Specialty Diagnoses / Procedures Referred By Contact Referred To Contact New Request Diagnoses Uncertain lie of fetus, single or unspecified fetus Procedures US OB LIMITED/NERISSA Rosita Chacon, CLEANING PORTER-AUTO HEADLIGHT MECHANIC [id number] [place] [address] Reason Comments Contractions Reason Comments 38w2d, Contractions [...] section and content) DATE CREATED AUTHOR 11/25/2018 [facility] DATE CREATED AUTHOR AUTHOR'S ORGANIZ ATION 12/15/2018 [facility] DATE CREATED AUTHOR AUTHOR'S ORGANIZ ATION 12/20/2018 [facility] DATE CREATED AUTHOR AUTHOR'S ORGANIZ ATION 12/23/2018 [facility] DATE CREATED AUTHOR AUTHOR'S ORGANIZ ATION 09/12/2019 [facility] DATE CREATED AUTHOR AUTHOR'S ORGANIZ ATION 08/25/2021 [facility] DATE CREATED AUTHOR AUTHOR'S ORGANIZ ATION 11/23/2021 [facility] DATE CREATED AUTHOR AUTHOR'S ORGANIZ ATION 04/26/[address] [facility] DATE CREATED AUTHOR AUTHOR'S ORGANIZ ATION 07/20/2025 [facility] Kristina Dumont RN - 11/25/2020 12:05 [...] headache that started at 0700 this morning. HPI Nayeli Hernandez is a 25 y.o. [...] Surgeon: Gerri Hicks MD; Location: [facility] OR EGD DIAGNOSTIC 2019 WISDOM TEETH [...] and Family: Three times a week Attends Restorationism Services: Not on file Active Member of [...] CARE 105 (H) 70 - 100 MG/DL [employer]raiser [employer] Estate [phone] URINALYSIS, MACRO Result Value Ref Range [...] moderate improvement in her symptoms. OB and BODY ENGINEER nurse did a heart tones and recording [...] above information. . Bartolo Zheng MD 11/24/20 1013 documented in this encounter Care Teams (unrecognized sec tion and content) Scene Shifter Relationship Specialty Start Date End Date Parmjit Enrique MD [address] [place] [address] PCP - General Family Medicine 02/01/20 Scene Shifter Relationship Specialty Start Date End Date Parmjit Enrique MD [address] [place] [address] PCP - General Family Medicine 02/01/20 Team [...] Provider, Refer ring Provider Active Megan Love [employer], [employer]-C Attending Provider Active Team Status: Inactive Member [...] Active Start: May 14, 2025 Beryl Kamara , STEFANI Attending Provider Active St art: May 14, [...] June 23, 2025 End: June 23, 2025 Team Status: Inactive Member Role/Relationship Status Dates Dr. Laureen Rasmussen MD Primary care physician Active Start: June 16, 2025 End: June 16, 2025 Juliet Virk CNM Attending physician Active Start: June 16, 2025 End: June 16, 2025 Juliet Virk CNM Referring Provider Active S tart: June 16, 2025 End: June 16, 2025 Team Status: Active Member Role/Relationship Status Dates Dr. Laureen Rasmussen MD Primary care physician Active Start: June 23, 2025 Dr. Fanta Zarate MD Attending physician Active Start: June 23, 2025 Dr. Fanta Zarate MD Referring Provider Active Start: June 23, 2025 Team Status: Inactive Member Role/Relationship Status Dates Dr. Laureen Rasmussen MD Primary care physician Active Start: June 23, 2025 End: June 23, 2025 Dr. Fanta Zarate MD Attending physician Active Start: June 23, 2025 End: June 23, 2025 Dr. Fanta Zarate MD Referring Provider Active Start: June 23, [...] BE BASED ON THE PRIMARY CLINICAL RECORDS. [facility]. provides no warranty or guarantee of the accuracy or completeness of information in this document.
== END 2025-07-25 14:32 | disposition left against medical advice (07) ==
LOC: ED 14:35
PROVIDERS: PCP Internal Medicine
DX: Z53.21 Procedure and treatment not carried out due to patient leaving prior to being seen by health care provider (principal)

== ENCOUNTER 2025-07-25 16:15 | Emergency (ER) | payer MEDICAID, SELFPAY ==
[2025-07-25 16:16] VITALS: BP 120/72; PULSE 85; RESP 16; TEMP 36.9; O2SAT 100; BMI 30.4
--- OUTSIDE RECORDS SUMMARY | 2025-07-25 19:07 | XMS RPT_ITS | CCD ---
Author Organization [facility] Care Team Providers Care Traffic Workforce Representative Name Role Phone Mady Farrell Primary [...] Parmjit Enrique MD Primary Care Provider [phone] Parmjit Enrique MD Primary Care Provider Dr. Fanta Zarate Attending Provider CHICO Virk Attending Provider [phone] Care Physician, No Primary Primary Care Provider Unavailable Care Physician, No Primary Referring Provider Un available Dr. Fanta Zarate Attending Provider CHICO Virk Attending Provider [phone] Care Physician, No Primary Primary Care Provider Unavailable Care Physician, No Primary Referring Provider Un available Ivan ACCOUNT RECEIVABLE CLERK, MANINDER Guzman Attending Provider Care Physician, No Primary Primary Care Provider Unavailable Care Physician, No Primary Referring Provider Un available Dr. Fanta Zarate Attending Provider MANINDER Love NP Attending Provider [phone] Dr. Radha Jin Attending Provider [phone] [...] Physician Dr. Fanta Zarate MD Referring Provider Juliet Virk Referring Unavailable Grady, Laureen Primary Care Unavailable Juliet Virk Attending Unavailable Sagar Veronica Primary Care Unavailable Farzad CANTRELL, Sagar Attending Unavailable Sagar Veroncia Referring Unavailable Grady, Laureen Referring Unavailable Grady, Laureen Primary Care Unavailable Juliet Virk Attending Unavailable Stockton Laureen Attending Unavailable Stockton, Laureen Primary Care Unavailable Care Physician, No Primary Referring Unava ilable Stockton, Laureen Primary Care Unavailable Beryl Kamara Attending Unavailable Grady, Laureen Referring Unavailable IvanMegan velez NP Attending Unavailable Stockton, Laureen Primary Care Unavailable Gardy, Laureen Referring Unavailable Fanta Zarate Attending Unavailable Grady, Laureen Primary Care Unavailable Fanta Zarate Attending Unavailable Fanta Zarate Referring Unavailable Stockton, Laureen Primary Care Unavailable Juliet Virk Referring Unavailable Stockton, Laureen Primary Care Unavailable Juliet Virk Attending Unavailable Allergies Allergy Classification Reported Allergen(s) Allergy Type Date of Onset Reaction(s) Facility (1 source) No Known Medication Allergies; Translations: [No Known Medication Allergies] Propensity to adverse reactions to drug (disorder) [facility] Repository Medications Current Medications [...] by mouth every week ergocalciferol 1.25 MG (52779 UT) capsule Take 50,000 Units by mouth once a week. 0 Active Eyaxdjxk-Xkl-Ob-Fa () 1 mg Tablet (18 sources) Start: 04-23-2022 take 1 tablet by mouth once daily Start: 04-23-2022 take 1 tablet by soledad th once daily Ihwliuzw-Niv-Rq-Fa () 1 mg Tablet Active 1 {tbl} PO DAILY April 23, 2022 12:00am Complies with drug therapy Start: 04-23-2022 take 1 tablet by soledad th once daily Kxpepwuo-Fgy-Di-Fa () 1 mg Tablet Active 1 {tbl} PO DAILY April 23, 2022 12:00am Start: 04-23-2022 take 1 tablet by soledad th once daily Npmdyooy-Zhz-Xo-Fa () 1 mg Tablet Active 1 TABLET PO DAILY April 22, 2022 11:00pm Start: 04-23-2022 take 1 tablet by soledad th once daily Wpragway-Qxr-Cu-Fa () 1 mg Tablet Active 1 TABLET [...] Active Start: 08-21-2018 take 1 capsule by [facility] four times daily cephALEXin (KEFLEX) 500 [...] Test Name Value Interpretation Reference Range Facility Wood Technologist Office Visit Reporton 07-19-2025 Wood Technologist Office Visit Report [facility] [address], [address] [place] [address] OFFICE VISIT Date of Service: 07/19/25 MR#: [id number] Acct: [id number] Name: NAYELI HERNANDEZ Rep #: [id number] 10 : 1995 Provider: MANINDER berger Age/Sex: 29/F Location: [facility] [place] Status: Signed Intake Vital Signs 05/27/25 14:55 06/23/25 14:14 07/19/25 13:02 Height 5 ft 2 in 5 ft 2 in 5 ft 2 in Weight: 165 lb 5 oz BMI 30.2 BP 124/72 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 Is patient in pain?: No Allergies No Known Allergies Allergy (Verified 07/19/25 13:00) Medications ???Medication ???Instructions ???Recorded ???Confirmed ???Type czupnwyl-iod-Yz-FA 1 mg 1 tab PO DAILY 04/23/22 07/19/25 History tablet valacyclovir 1 gram tablet 2,000 mg (2 x 1 gram) PO BID PRN 0 03/24/25 07/19/25 Rx (Valtrex) cold sore #4 tabs Last Menstrual Period: 03/20/25 Zika: Zika virus screening: Negative : No PFSH PFSH Medical History History of shoulder dystocia Anxiety depression Seasonal allergies Family history of autistic disorder Surgical History [place] teeth extracted History of surgery Family History Grandmother Breast cancer, Onset Age: 65 maternal Aunt Breast cancer, Onset Age: 60 Maternal Sister Thyroid disorder Mother Thyroid disorder Hypertension Sister Thyroid disorder Father Hypertension Social History adopted: No household members: spouse and children number of children: 3 current occupational status: employed 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 Normal [facility] Genital Culture Comprehensiv jonh 06-26-2025 VAC Reason for Exam: vaginal odor Normal vaginal britney isolated. No yeast, Gardnerella, Neisseria or beta-hemolytic Streptococcus isolated. Normal [facility] Comment on above: Performed By: #### M 100.3200, M100.1999 #### [facility] [address] [place], [place], [id number] Genital cultureOrdered By: Kar Zarate on 06-23-2025 Source specific culture Neisseria or beta-hemolytic Streptococcus isolated. [facility] Gram Stainon 06-23-2025 GS Reason for Exam: vaginal odor Gram Stain 3+ Gram positive rods 2+ Gram variable anu No Gram negative diplococci Score = 3 Interpretation: 0-3 Normal, 4-6 Intermediate, 7-10 Positive BV Normal [facility] Comment on above: Performed By: #### M 100.3200, M100.1999 #### [facility] [address] [place], [place], [address] Gram stainOrdered By: Fanta Zarate on 06-23-2025 Microscopic observation Gram stain Nom (Unsp spec) [facility] L3410.9992on 06-23-2025 [facility] Misc. COMMENT Normal . [facility] Comment on above: Order Comment: [id number] 8TSH R AB SERUM FRZ Result Comment: Test Ordered: [id number] TSH Receptor Antibody (TBII) TSH Receptor Antibody (TBII) 0.7 U/L ES Reference Range: . Reference Range: Antibody Titer: <1.0 U/L = Negative 1.1 - 1.5 U/L = Equivocal >1.5 U/L = Positive Performed at: ES - [facility] [address] [place], [place] [id number] Wellness Program Administrator: Isrrael Grajeda MD, Phone: [phone] Performed at: - [facility] [place] [address] [place], [place] [id number] Wellness Program Administrator: Federico Tavarez PhD, Phone: [phone] Performed By: #### L 3890.6102, L3890.6301, L100.0100, L3300.6900, L509.4006, L3890.6006, L509.8002, L506.0400, L501.9520, BTS, L3410.9992 ####[facility] [id number] [place], [place], [address] Laboratory - Chemistry and C hemistry - challengeOrdered By: Fanta Zarate on 06-23-2025 Glucose Ql (U) Negative [facility] Laboratory - UrinalysisOrder ed By: Fanta Zarate on 06-23-2025 Protein Ql (U) Negative [facility] Wood Technologist Office Visit Reporton 06-23-2025 Wood Technologist Office Visit Report [facility] [address], [address] [place] [address] OFFICE VISIT Date of Service: 06/23/25 MR#: [id number] Acct: [id number] Name: NAYELI HERNANDEZ Rep #: [id number] 07 : 1995 Provider: Dr. 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: 12wk ob Marine 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: No Is patient in pain?: No Allergies No Known Allergies Allergy (Verified 06/23/25 14:14) Medications ???Medication ???Instructions ???Recorded ???Confirmed ???Type aochklru-tis-Sx-FA 1 mg 1 tab PO DAILY 04/23/22 06/23/25 History tablet valacyclovir 1 gram tablet 2,000 mg (2 x 1 gram) PO BID PRN 0 03/24/25 06/23/25 Rx (Valtrex) cold sore #4 tabs Last Menstrual Period: 03/20/25 Zika: Zika virus screening: Negative : No PFSH PFSH Medical History History of shoulder dystocia Anxiety depression Seasonal allergies Family history of autistic disorder Surgical History [place] teeth extracted History of surgery Family History Grandmother Breast cancer, Onset Age: 65 maternal Aunt Breast cancer, Onset Age: 60 Maternal Sister Thyroid disorder Mother Thyroid disorder Hypertension Sister Thyroid disorder Father Hypertension Social History adopted: No household members: spouse and children number of children: 3 current occupational status: employed 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 Normal [facility] Thyroid Peroxidase ABon 06-07 THYR PEROX AB 16 IU/mL Normal 0-34 [facility] Comment on above: Result Comment: Perf ormed at: [facility] [address] [id number] Wellness Program Administrator: Federico Tavarez PhD, Phone: [phone] Performed By: #### L 3890.6102, L3890.6301, L100.0100, L3300.6900, L509.4006, L3890.6006, L509.8002, L506.0400, L501.9520, BTS, L3410.9992 ####[facility] [id number] [place], [address] Absolute lymphocyte countOrd ered By: Juliet Virk on 06-16-2025 Lymphocytes Auto (Unsp spec) [#/Vol] 2.33 10*3/uL 0.83-4.51 [facility] Absolute neutrophil countOrd ered By: Juliet Virk on 06-16-2025 Neutrophils (Bld) [#/Vol] 6.1 10*3/uL 2.0-7.7 [facility] Automated lymphocyte count a s percentage of total leukocytesOrdered By: Juliet Virk on 06-16-2025 Lymphocytes/100 WBC Auto (Unsp spec) 25.4 % 19-41 [facility] Basophil percentageOrdered B y: Juliet Virk on 06-16-2025 Basophils/100 WBC (Bld) 0.4 % 0-1 [facility] CBC W/Diff, Automatedon 06-07-2024 Absolute Lymph 2.33 X10 3/uL Normal 0.83-4.51 [facility] Comment on above: Performed By: #### L 3890.6102, L3890.6301, L100.0100, L3300.6900, L509.4006, L3890.6006, L509.8002, L506.0400, L501.9520, BTS, L3410.9992 #### [facility] [address] [place], [address] Absolute Neut 6.1 X10 3/uL Normal 2.0-7.7 [facility] Comment on above: Performed By: #### L 3890.6102, L3890.6301, L100.0100, L3300.6900, L509.4006, L3890.6006, L509.8002, L506.0400, L501.9520, BTS, L3410.9992 #### [facility] [address] [place], [address] Basophils/100 WBC (Bld) 0.4 % Normal 0-1 [facility] Comment on above: Performed By: #### L 3890.6102, L3890.6301, L100.0100, L3300.6900, L509.4006, L3890.6006, L509.8002, L506.0400, L501.9520, BTS, L3410.9992 #### [facility] [address] [place], [address] Eosinophils/100 WBC (Bld) 2.0 % Normal 0-5 [facility] Comment on above: Performed By: #### L 3890.6102, L3890.6301, L100.0100, L3300.6900, L509.4006, L3890.6006, L509.8002, L506.0400, L501.9520, BTS, L3410.9992 #### [facility] [address] [place], [address] Erythrocyte distribution width (RBC) [Ratio] 12.6 % Normal 11.6-14.6 [facility] Comment on above: Performed By: #### L 3890.6102, L3890.6301, L100.0100, L3300.6900, L509.4006, L3890.6006, L509.8002, L506.0400, L501.9520, BTS, L3410.9992 #### [facility] [address] [place], [address] Hematocrit (Bld) [Volume fraction] 37.6 % Normal 37-47 [facility] Comment on above: Performed By: #### L 3890.6102, L3890.6301, L100.0100, L3300.6900, L509.4006, L3890.6006, L509.8002, L506.0400, L501.9520, BTS, L3410.9992 #### [facility] [address] [place], [address] Hemoglobin (Bld) [Mass/Vol] 12.9 g/dL Normal 12.0-15.0 [facility] Comment on above: Performed By: #### L 3890.6102, L3890.6301, L100.0100, L3300.6900, L509.4006, L3890.6006, L509.8002, L506.0400, L501.9520, BTS, L3410.9992 #### [facility] [address] [place], [address] IG% 0.300 Normal 0.0-0.9 [facility] Comment on above: Result Comment: IG% - Immature Granulocytes (promyelocytes, myelocytes and metamyelocytes) > 1% indicates that a LEFT SHIFT is Present. Performed By: #### L 3890.6102, L3890.6301, L100.0100, L3300.6900, L509.4006, L3890.6006, L509.8002, L506.0400, L501.9520, BTS, L3410.9992 #### [facility] [address] [place], [address] Lymphocytes/100 WBC (Bld) 25.4 % Normal 19-41 [facility] Comment on above: Performed By: #### L 3890.6102, L3890.6301, L100.0100, L3300.6900, L509.4006, L3890.6006, L509.8002, L506.0400, L501.9520, BTS, L3410.9992 #### [facility] [address] [place], [address] MCH (RBC) [Entitic mass] 29.4 pg Normal 27.0-32.0 [facility] Comment on above: Performed By: #### L 3890.6102, L3890.6301, L100.0100, L3300.6900, L509.4006, L3890.6006, L509.8002, L506.0400, L501.9520, BTS, L3410.9992 #### [facility] [address] [place], [address] MCHC (RBC) [Mass/Vol] 34.3 g/dL Normal 32-36 [facility] Comment on above: Performed By: #### L 3890.6102, L3890.6301, L100.0100, L3300.6900, L509.4006, L3890.6006, L509.8002, L506.0400, L501.9520, BTS, L3410.9992 #### [facility] [address] [place], [address] MCV (RBC) [Entitic vol] 85.6 fL Normal 81-99 [facility] Comment on above: Performed By: #### L 3890.6102, L3890.6301, L100.0100, L3300.6900, L509.4006, L3890.6006, L509.8002, L506.0400, L501.9520, BTS, L3410.9992 #### [facility] [address] [place], [address] Monocytes/100 WBC (Bld) 5.7 % Normal 0-10 [facility] Comment on above: Performed By: #### L 3890.6102, L3890.6301, L100.0100, L3300.6900, L509.4006, L3890.6006, L509.8002, L506.0400, L501.9520, BTS, L3410.9992 #### [facility] [address] [place], [address] Neutrophils/100 WBC (Bld) 66.2 % Normal 47-70 [facility] Comment on above: Performed By: #### L 3890.6102, L3890.6301, L100.0100, L3300.6900, L509.4006, L3890.6006, L509.8002, L506.0400, L501.9520, BTS, L3410.9992 #### [facility] [address] [place], [address] Nucleated RBC (Bld) [#/Vol] 0 10*3/uL Normal 0-5 [facility] Comment on above: Performed By: #### L 3890.6102, L3890.6301, L100.0100, L3300.6900, L509.4006, L3890.6006, L509.8002, L506.0400, L501.9520, BTS, L3410.9992 #### [facility] [address] [place], [address] Platelet mean volume (Bld) [Entitic vol] 10.9 fL Normal 6.2-12.0 [facility] Comment on above: Performed By: #### L 3890.6102, L3890.6301, L100.0100, L3300.6900, L509.4006, L3890.6006, L509.8002, L506.0400, L501.9520, BTS, L3410.9992 #### [facility] [address] [place], [address] Platelets (Bld) [#/Vol] 213 10*3/uL Normal 150-450 [facility] Comment on above: Performed By: #### L 3890.6102, L3890.6301, L100.0100, L3300.6900, L509.4006, L3890.6006, L509.8002, L506.0400, L501.9520, BTS, L3410.9992 #### [facility] [address] [place], [place], [id number] (862) RBC (Bld) [#/Vol] 4.39 10*6/uL Normal 4.2-5.4 [facility] Comment on above: Performed By: #### L 3890.6102, L3890.6301, L100.0100, L3300.6900, L509.4006, L3890.6006, L509.8002, L506.0400, L501.9520, BTS, L3410.9992 #### [facility] [address] [place], [address] (363) RDW SD 39.2 fl Normal 35.1-43.9 [facility] Comment on above: Performed By: #### L 3890.6102, L3890.6301, L100.0100, L3300.6900, L509.4006, L3890.6006, L509.8002, L506.0400, L501.9520, BTS, L3410.9992 #### [facility] [address] [place], [address] WBC (Bld) [#/Vol] 9.2 10*3/uL Normal 4.4-11.0 [facility] Comment on above: Performed By: #### L 3890.6102, L3890.6301, L100.0100, L3300.6900, L509.4006, L3890.6006, L509.8002, L506.0400, L501.9520, BTS, L3410.9992 #### [facility] [address] [place], [place], [address] Eosinophil percentageOrdered By: Juliet Virk on 06-16-2025 Eosinophils/100 WBC (Bld) 2.0 % 0-5 [facility] Erythrocyte distribution wid th ratioOrdered By: Juliet Virk on 06-16-2025 Erythrocyte distribution width (RBC) [Ratio] 12.6 % 11.6-14.6 [facility] Erythrocyte distribution wid th standard deviationOrdered By: Juliet Virk on 06-16-2025 Erythrocyte distribution width (RBC) [Ratio] 39.2 fl 35.1-43.9 [facility] HIVon 06-16-2025 HIV Non-Reactive Normal Nonreactive [facility] Comment on above: Result Comment: Non- Reactive Reactive Repeatedly reactive samples must be confirmed according to CDC recommended confirmatory algorithms. The subresults for either HIVAG or AHIV can be used as an aid in the selection of the confirmation algorithm for reactive samples. Send out specimens with Reactive results to [facility] for confirmation. Order the HIV antibody detection and differentiation: #[id number] Performed By: #### L 3890.6102, L3890.6301, L100.0100, L3300.6900, L509.4006, L3890.6006, L509.8002, L506.0400, L501.9520, BTS, L3410.9992 ####[facility] [address] [place], [place], [address] Hematocrit Auto (Bld) [Volum e fraction]Ordered By: Juliet Virk on 06-16-2025 Hematocrit (Bld) [Volume fraction] 37.6 % 37-47 [facility] Hemoglobin measurementOrdere d By: Juliet Virk on 06-16-2025 Hemoglobin (Bld) [Mass/Vol] 12.9 g/dL 12.0-15.0 [facility] Hepatitis C Antibodyon 06-16 Hepatitis C Ab Non-Reactive Normal Nonreactive [facility] Comment on above: Result Comment: Reac tive: Presumptive evidence of antibodies to HCV. Follow CDC recommendations for supplemental testing. Non-Reactive: Antibodies to HCV were not detected; does not exclude the possibility of exposure to HCV Reactive Results are presumptive evidence of antibodies to HCV. Follow CDC recommendations for supplemental testing. Order confirmation testing: HCV Quant by PCR testing - HCVPCR #[id number] Non Reactive: < 0.8 Equivocal: >/= 0.8 to < 1.0 Reactive: >/= 1.0 The CDC requires that a reactive/equivocal HCV antibody result be sent out for confirmation. HCV Quant by PCR testing. Performed By: #### L 3890.6102, L3890.6301, L100.0100, L3300.6900, L509.4006, L3890.6006, L509.8002, L506.0400, L501.9520, BTS, L3410.9992 ####[facility] [address] [facility] [address] [place], [place], [id number] Immature granulocytes/100 WB C Auto (Bld)Ordered By: Juliet Virk on 06-16-2025 Immature granulocytes/100 WBC (Bld) 0.300 % 0.0-0.9 [facility] Comment on above: IG% - Immature Granu locytes (promyelocytes, myelocytes and metamyelocytes) > 1% indicates that a LEFT SHIFT is Present. L3890.6102on 06-16-2025 HEP B Surf Ag Non-Reactive Normal Nonreactive [facility] Comment on above: Result Comment: Reac tive: Presumptive evidence of HBV. Repeatedly reactive samples must be confirmed using a neutralization test ([employer] HBsAg Confirmatory Test) Non-Reactive: HBsAg not detected; does not exclude the possibility of exposure to HBV Performed By: #### L 3890.6102, L3890.6301, L100.0100, L3300.6900, L509.4006, L3890.6006, L509.8002, L506.0400, L501.9520, BTS, L3410.9992 ####[facility] [address] [facility] [address] [place], [place], [address] L509.4006on 06-16-2025 Rubella IgG REAC Normal Nonreactive [facility] Comment on above: Result Comment: Anti body Result: Interpretation Non-Reactive: Non-Immune Reactive: Immune The following results were obtained with the [employer] Rubella IgG assay. Results from assays of other manufacturers cannot be used interchangeably. Performed By: #### L 3890.6102, L3890.6301, L100.0100, L3300.6900, L509.4006, L3890.6006, L509.8002, L506.0400, L501.9520, BTS, L3410.9992 ####[facility] [address] [place], [address] Laboratory - Microbiology an d Antimicrobial susceptibilityOrdered By: Juliet Virk on 06-16-2025 HBV surface Ag Ql (S) Non-Reactive Nonreactive [facility] Comment on above: Reactive: Presumptiv e evidence of HBV. Repeatedly reactive samples must be confirmed using a neutralization test ([employer] HBsAg Confirmatory Test)Non-Reactive: HBsAg not detected; does not exclude the possibility of exposure to HBV MCV (mean corpuscular volume ) determinationOrdered By: Juliet Virk on 06-16-2025 MCV (RBC) [Entitic vol] 85.6 fL 81-99 [facility] Mean corpuscular hemoglobin (MCH) determinationOrdered By: Juliet Virk on 06-16-2025 MCH (RBC) [Entitic mass] 29.4 pg 27.0-32.0 [facility] Mean corpuscular hemoglobin concentration (MCHC) determinationOrdered By: Juliet Virk on 06-16-2025 MCHC (RBC) [Mass/Vol] 34.3 g/dL 32-36 [facility] Mean platelet volume determi nationOrdered By: Juliet Virk on 06-16-2025 Platelet mean volume (Bld) [Entitic vol] 10.9 fL 6.2-12.0 [facility] Monocyte percentageOrdered B y: Juliet Virk on 06-16-2025 Monocytes/100 WBC (Bld) 5.7 % 0-10 [facility] Neutrophil percentageOrdered By: Juliet Virk on 06-16-2025 Neutrophils/100 WBC (Bld) 66.2 % 47-70 [facility] No Panel InformationOrdered By: Juliet Virk on 06-16-2025 HIV (1&2) Antibody Non-Reactive Nonreactive [facility] Comment on above: Non-ReactiveReactive Repeatedly reactive samples must be confirmed according to CDC recommended confirmatory algorithms. The subresults for either HIVAG or AHIV can be used as an aid in the selection of the confirmation algorithm for reactive samples.Send out specimens with Reactive results to [facility] for confirmation.Order the HIV antibody detection and differentiation: #[id number] Nucleated red blood cell per centageOrdered By: Juliet Virk on 06-16-2025 Nucleated RBC/100 WBC (Bld) [Ratio] 0 % 0-5 [facility] Platelet countOrdered By: Og Virk on 06-16-2025 Platelets (Bld) [#/Vol] 213 10*3/uL 150-450 [facility] RBC Auto (Bld) [#/Vol]Ordere d By: Juliet Virk on 06-16-2025 RBC (Bld) [#/Vol] 4.39 10*6/uL 4.2-5.4 [facility] Serum or plasma thyroperoxid ase antibody assay (units/volume)Ordered By: Juliet Virk on 06-16-2025 TPO Ab Qn 16 [IU]/mL 0-34 [facility] Comment on above: Performed at: [place] [id number] Director: Federico Tavarez PhD, Phone: [phone] Syphilis Antibodieson 2024 Syphilis Abs Non-Reactive Normal Nonreactive [facility] Comment on above: Performed By: #### L 3890.6102, L3890.6301, L100.0100, L3300.6900, L509.4006, L3890.6006, L509.8002, L506.0400, L501.9520, BTS, L3410.9992 ####[facility] [address] [place], [address] T4 Free Directon 06-16-2025 T4 FREE DIRECT 1.10 ng/dL Normal 0.76-1.46 [facility] Comment on above: Performed By: #### L 3890.6102, L3890.6301, L100.0100, L3300.6900, L509.4006, L3890.6006, L509.8002, L506.0400, L501.9520, BTS, L3410.9992 #### [facility] [facility] [address] [place], [address] T4 freeOrdered By: Juliet adams on 06-16-2025 Free T4 [Mass/Vol] 1.10 ng/dL 0.76-1.46 [facility] TSH DL <= 0.005 mIU/L QnOrde red By: Juliet Virk on 06-16-2025 TSH Qn 1.460 uIU/mL 0.300-4.200 [facility] Thyroid Stim Hormone (TSH)on 06-16-2025 TSH 1.460 uIU/mL Normal 0.300-4.200 [facility] Comment on above: Performed By: #### L 3890.6102, L3890.6301, L100.0100, L3300.6900, L509.4006, L3890.6006, L509.8002, L506.0400, L501.9520, BTS, L3410.9992 #### [facility] [address] [place], [address] Type AND Screenon 06-16-2025 Ab SCREEN GEL Negative Normal [facility] Comment on above: Order Comment: PN Performed By: #### L 3890.6102, L3890.6301, L100.0100, L3300.6900, L509.4006, L3890.6006, L509.8002, L506.0400, L501.9520, BTS, L3410.9992 ####[facility] [address] [facility] [place], [address] White blood cell (WBC) count Ordered By: Juliet Virk on 06-16-2025 WBC (Bld) [#/Vol] 9.2 10*3/uL 4.4-11.0 [facility] Chlamydia/GC JIMMY aptimaon CHLAMY,NUC ACID Negative Normal Negative [facility] Comment on above: Performed By: #### L 7000.1800, M100.2200 #### [facility] [address] [place], [address] GC BY NUC ACID Negative Normal Negative [facility] Comment on above: Result Comment: Perf ormed at: =G - [facility] [address] [place], [place] [id number] Wellness Program Administrator: Leta Holt MD, Phone: [phone] Performed By: #### L 7000.1800, M100.2200 #### [facility] [address] [place], [address] Urine Cultureon 05-28-2025 URC Culture exhibits no growth. Normal [facility] Comment on above: Performed By: #### L 7000.1800, M100.2200 #### [facility] [address] [place], [address] Chlamydia trachomatis rRNA d etection by probe and target amplification methodOrdered By: Juliet Virk on 05-27-2025 C. trachomatis rRNA JIMMY+probe Ql (Unsp spec) Negative Negative [facility] Neisseria gonorrhoeae nuclei c acid detection by amplified probe techniqueOrdered By: Juliet Virk on 05-27-2025 N. gonorrhoeae DNA JIMMY+probe Ql (Unsp spec) Negative Negative [facility] Comment on above: Performed at: [facility] [address] [id number] Director: Leta Holt MD, Phone: [phone] Wood Technologist Office Visit Reporton 05-27-2025 Wood Technologist Office Visit Report [facility] [address], [address] [place] [address] OFFICE VISIT Date of Service: 05/27/25 MR#: [id number] Acct: [id number] Name: NAYELI HERNANDEZ Rep #: [id number] : 1995 Provider: CNM Juliet Willi ams Age/Sex: 29/F Location: [facility] [place] [facility] Status: Signed Intake Vital Signs 11/18/24 08:47 04/27/25 14:36 05/27/25 14:55 Height 5 ft 2 in 5 ft 2 in 5 ft 2 in Weight: 164 lb BMI 29.9 BP 106/71 Intake Visit Reasons: *EST* NOB LMP 03/20, PRANAY 12/25 Chief Complaint: New 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 Is patient in pain?: No Allergies No Known Allergies Allergy (Verified 05/27/25 14:54) Medications ???Medication ???Instructions ???Recorded ???Confirmed ???Type hjoarrpg-kjq-Ri-FA 1 mg 1 tab PO DAILY 04/23/22 05/27/25 History tablet valacyclovir 1 gram tablet 2,000 mg (2 x 1 gram) PO BID PRN 0 03/24/25 05/27/25 Rx (Valtrex) cold sore #4 tabs Last Menstrual Period: 03/20/25 PFSH PFSH Medical History History of shoulder dystocia Anxiety depression Seasonal allergies Family history of autistic disorder Surgical History [place] teeth extracted History of surgery Family History Grandmother Breast cancer, Onset Age: 65 maternal Aunt Breast cancer, Onset Age: 60 Maternal Sister Thyroid disorder Mother Thyroid disorder Hypertension Sister Thyroid disorder Father Hypertension Social History adopted: No household members: spouse and children number of children: 3 current occupational status: employed 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 Normal [facility] Urine cultureOrdered By: Doni Virk on 05-27-2025 Bacteria identified Cx Nom (U) Culture exhibits no growth. [facility] Antinuclear Antibody, IFAon 11-23-2024 EUNICE, IFA Negative Normal . [facility] Comment on above: Result Comment: Nega tive <1:80 Borderline 1:80 Positive >1:80 ICAP nomenclature: AC-0 For more information about Hep-2 cell patterns use ANApatterns.org, the official website for the International Consensus on Antinuclear Antibody (EUNICE) Patterns (ICAP). Performed at: [address] [id number] Wellness Program Administrator: Federico Tavarez PhD, Phone: [phone] Performed By: #### L 500.4050, L3100.7950, L100.0100, L506.1000 ####[facility] [address] [place], [place], [id number] CBC W/Diff, Automatedon 11-07 Absolute Lymph 2.13 X10 3/uL Normal 0.83-4.51 [facility] Comment on above: Performed By: #### L 500.4050, L3100.7950, L100.0100, L506.1000 ####[facility] [address] [place], [place], [address] Absolute Neut 3.0 X10 3/uL Normal 2.0-7.7 [facility] Comment on above: Performed By: #### L 500.4050, L3100.7950, L100.0100, L506.1000 ####[facility] [address] [place], [address] Basophils/100 WBC (Bld) 0.5 % Normal 0-1 [facility] Comment on above: Performed By: #### L 500.4050, L3100.7950, L100.0100, L506.1000 ####[facility] [address] [place], [address] Eosinophils/100 WBC (Bld) 2.5 % Normal 0-5 [facility] Comment on above: Performed By: #### L 500.4050, L3100.7950, L100.0100, L506.1000 ####[facility] [address] [place], [address] Erythrocyte distribution width (RBC) [Ratio] 12.5 % Normal 11.6-14.6 [facility] Comment on above: Performed By: #### L 500.4050, L3100.7950, L100.0100, L506.1000 ####[facility] [address] [place], [address] Hematocrit (Bld) [Volume fraction] 39.5 % Normal 37-47 [facility] Comment on above: Performed By: #### L 500.4050, L3100.7950, L100.0100, L506.1000 ####[facility] [address] [place], [address] Hemoglobin (Bld) [Mass/Vol] 12.7 g/dL Normal 12.0-15.0 [facility] Comment on above: Performed By: #### L 500.4050, L3100.7950, L100.0100, L506.1000 ####[facility] [address] [place], [address] IG% 0.200 Normal 0.0-0.9 [facility] Comment on above: Result Comment: IG% - Immature Granulocytes (promyelocytes, myelocytes and metamyelocytes) > 1% indicates that a LEFT SHIFT is Present. Performed By: #### L 500.4050, L3100.7950, L100.0100, L506.1000 ####[facility] [address] [place], [address] Lymphocytes/100 WBC (Bld) 37.7 % Normal 19-41 [facility] Comment on above: Performed By: #### L 500.4050, L3100.7950, L100.0100, L506.1000 ####[facility] [address] [place], [address] MCH (RBC) [Entitic mass] 28.5 pg Normal 27.0-32.0 [facility] Comment on above: Performed By: #### L 500.4050, L3100.7950, L100.0100, L506.1000 ####[facility] [address] [place], [address] MCHC (RBC) [Mass/Vol] 32.2 g/dL Normal 32-36 [facility] Comment on above: Performed By: #### L 500.4050, L3100.7950, L100.0100, L506.1000 ####[facility] [address] [place], [address] MCV (RBC) [Entitic vol] 88.6 fL Normal 81-99 [facility] Comment on above: Performed By: #### L 500.4050, L3100.7950, L100.0100, L506.1000 ####[facility] [address] [place], [address] Monocytes/100 WBC (Bld) 6.5 % Normal 0-10 [facility] Comment on above: Performed By: #### L 500.4050, L3100.7950, L100.0100, L506.1000 ####[facility] [address] [place], [address] Neutrophils/100 WBC (Bld) 52.6 % Normal 47-70 [facility] Comment on above: Performed By: #### L 500.4050, L3100.7950, L100.0100, L506.1000 ####[facility] [address] [place], [address] Nucleated RBC (Bld) [#/Vol] 0 10*3/uL Normal 0-5 [facility] Comment on above: Performed By: #### L 500.4050, L3100.7950, L100.0100, L506.1000 ####[facility] [address] [place], [address] Platelet mean volume (Bld) [Entitic vol] 11.0 fL Normal 6.2-12.0 [facility] Comment on above: Performed By: #### L 500.4050, L3100.7950, L100.0100, L506.1000 ####[facility] [address] [place], [address] Platelets (Bld) [#/Vol] 215 10*3/uL Normal 150-450 [facility] Comment on above: Performed By: #### L 500.4050, L3100.7950, L100.0100, L506.1000 ####[facility] [address] [place], [address] RBC (Bld) [#/Vol] 4.46 10*6/uL Normal 4.2-5.4 [facility] Comment on above: Performed By: #### L 500.4050, L3100.7950, L100.0100, L506.1000 ####[facility] [address] [place], [address] RDW SD 40.5 fl Normal 35.1-43.9 [facility] Comment on above: Performed By: #### L 500.4050, L3100.7950, L100.0100, L506.1000 ####[facility] [address] [place], [address] WBC (Bld) [#/Vol] 5.7 10*3/uL Normal 4.4-11.0 [facility] Comment on above: Performed By: #### L 500.4050, L3100.7950, L100.0100, L506.1000 ####[facility] [address] [place], [address] Comprehensive Metabolic Prof ilon 11-18-2024 Albumin [Mass/Vol] 3.9 g/dL Normal 3.2-5.0 [facility] Comment on above: Performed By: #### L 500.4050, L3100.7950, L100.0100, L506.1000 ####[facility] [address] [place], [address] Albumin/Globulin [Mass ratio] 1.1 {ratio} Normal 0.9-2.4 [facility] Comment on above: Performed By: #### L 500.4050, L3100.7950, L100.0100, L506.1000 ####[facility] [address] [place], [address] ALK P 78 U/L Normal 45-117 [facility] Comment on above: Performed By: #### L 500.4050, L3100.7950, L100.0100, L506.1000 ####[facility] [address] [place], [address] ALT [Catalytic activity/Vol] 24 U/L Normal 13-56 [facility] Comment on above: Performed By: #### L 500.4050, L3100.7950, L100.0100, L506.1000 ####[facility] [address] [place], [address] AST [Catalytic activity/Vol] 10 U/L Low 15-37 [facility] Comment on above: Performed By: #### L 500.4050, L3100.7950, L100.0100, L506.1000 ####[facility] [address] [place], [address] Bilirubin [Mass/Vol] 0.40 mg/dL Normal 0.20-1.00 [facility] Comment on above: Result Comment: For patients on eltrombopag therapy, use of Dimension [place] TBIL is not recommended. Performed By: #### L 500.4050, L3100.7950, L100.0100, L506.1000 ####[facility] [address] [place], [address] BUN/CRE 17.6 RATIO Normal 10-20 [facility] Comment on above: Performed By: #### L 500.4050, L3100.7950, L100.0100, L506.1000 ####[facility] [address] [place], [address] CA,Total 9.5 mg/dL Normal 8.5-10.1 [facility] Comment on above: Performed By: #### L 500.4050, L3100.7950, L100.0100, L506.1000 ####[facility] [address] [place], [address] Chloride [Moles/Vol] 107 mmol/L Normal 98-107 [facility] Comment on above: Performed By: #### L 500.4050, L3100.7950, L100.0100, L506.1000 ####[facility] [address] [place], [address] CO2 [Moles/Vol] 29.0 mmol/L Normal 21.0-32.0 [facility] Comment on above: Performed By: #### L 500.4050, L3100.7950, L100.0100, L506.1000 ####[facility] [address] [place], [address] Creatinine [Mass/Vol] 0.68 mg/dL Normal 0.55-1.02 [facility] Comment on above: Result Comment: The validity of the calculated GFR GFRAA in patients over 70 years has not been determined. Clinical correlation is essential. Performed By: #### L 500.4050, L3100.7950, L100.0100, L506.1000 ####[facility] [address] [place], [address] EST GFR - AA 133 mL/min Normal >60 [facility] Comment on above: Result Comment: Afri can Indonesian GFR Calc Performed By: #### L 500.4050, L3100.7950, L100.0100, L506.1000 ####[facility] [address] [place], [address] GAP 5 Normal 5-15 [facility] Comment on above: Performed By: #### L 500.4050, L3100.7950, L100.0100, L506.1000 ####[facility] [address] [place], [address] GFR/1.73 sq M.predicted among non-blacks MDRD (S/P/Bld) [Vol rate/Area] 110 mL/min/{1.73_m2} Normal >60 [facility] Comment on above: Result Comment: Non- GFR Calc Performed By: #### L 500.4050, L3100.7950, L100.0100, L506.1000 ####[facility] [address] [place], [address] Globulin (S) [Mass/Vol] 3.6 g/dL Normal 2.2-4.2 [facility] Comment on above: Performed By: #### L 500.4050, L3100.7950, L100.0100, L506.1000 ####[facility] [address] [place], [address] Glucose [Mass/Vol] 82 mg/dL Normal 74-106 [facility] Comment on above: Performed By: #### L 500.4050, L3100.7950, L100.0100, L506.1000 ####[facility] [address] [place], [address] Potassium [Moles/Vol] 3.6 mmol/L Normal 3.5-5.1 [facility] Comment on above: Performed By: #### L 500.4050, L3100.7950, L100.0100, L506.1000 ####[facility] [address] [place], [address] Sodium [Moles/Vol] 141 mmol/L Normal 136-145 [facility] Comment on above: Performed By: #### L 500.4050, L3100.7950, L100.0100, L506.1000 ####[facility] [address] [place], [address] T PROT 7.5 g/dL Normal 6.4-8.2 [facility] Comment on above: Performed By: #### L 500.4050, L3100.7950, L100.0100, L506.1000 ####[facility] [address] [place], [address] Urea nitrogen [Mass/Vol] 12 mg/dL Normal 7-18 [facility] Comment on above: Performed By: #### L 500.4050, L3100.7950, L100.0100, L506.1000 ####[facility] [address] [place], [address] Vitamin D,25 Hydroxyon 11-18 Vitamin D 25-OH 20.8 ng/mL Normal [facility] Comment on above: Result Comment: Karina min D 25(OH) Status Range Deficiency <20 ng/mL (50nmol/L) Insufficiency 20 - 30 ng/mL (50 - 75 nmol/L) Sufficiency 30 - 100 ng/mL (75 - 250 nmol/L) Toxicity >100 ng/mL (>250 nmol/L) Performed By: #### L 500.4050, L3100.7950, L100.0100, L506.1000 ####[facility] [address] [place], [address] Internal Medicine Office Vis iton 11-17-2024 Internal Medicine Office Visit [facility] [address] [place] [address] [place] [address] OFFICE VISIT Date of Service: 11/18/24 MR#: [id number] Acct: [id number] Name: NAYELI HERNANDEZ Rep #: [id number] : 1995 Provider: Dr. Laureen gomez MD Age/Sex: 29/F Location: [facility] Status: Signed Intake Vital Signs 02/24/24 [...] PT Chief Complaint: establishing needs medication refills Marine 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: No Accompanied by: Self Is patient in pain?: No Allergies No Known Allergies Allergy (Verified 11/18/24 08:45) Medications ???Medication ???Instructions ???Recorded ???Confirmed ???Type mrwtyyoa-vrl-Wm-FA 1 mg 1 tab PO DAILY 04/23/22 [...] past year?: No Nurse's Note: leaving for [facility] next month asking if there is anything she needs to do before leaving [facility] etc?? 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 Normal [facility] Progress Noteon 04-22-2024 French Instructor Authentication Interface Message Text Assessment Patient: Nayeli [...] but sometimes both breasts. 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 Usually one pump overnight yields 8oz or so. She does not have any pain with nursing, even at the beginning after . No pain with pumping either. Gissel was born at [place] at 37+4 weeks, IOL for oligo. Otherwise [...] feed Exam: Nipple exam pre-feed: - Right: [place] and everted - Left: [place] and everted Nipple exam post-feed: N/a did not feed Breast exam: - Right: normal shape, tissue extends to sternum, no erythema or edema, no mass - Left: normal shape, tissue extends to sternum, no erythema or edema, no mass Normal [facility] Absolute lymphocyte countOrd ered By: Radha Villalobos on 01-13-2024 Lymphocytes Auto (Unsp spec) [#/Vol] 1.61 10*3/uL 0.83-4.51 [facility] Automated lymphocyte count a s percentage of total leukocytesOrdered By: Radha Villalobos on 01-13-2024 Lymphocytes/100 WBC Auto (Unsp spec) 20.4 % 19-41 [facility] Basophil percentageOrdered B y: Radha Villalobos on 01-13-2024 Basophils/100 WBC (Bld) 0.3 % 0-1 [facility] Eosinophils/100 WBC (Bld) 1.0 % 0-5 [facility] Hemoglobin (Bld) [Mass/Vol] 11.4 g/dL 12.0-15.0 [facility] Monocytes/100 WBC (Bld) 5.2 % 0-10 [facility] Neutrophils (Bld) [#/Vol] 5.8 10*3/uL 2.0-7.7 [facility] Neutrophils/100 WBC (Bld) 72.7 % 47-70 [facility] WBC (Bld) [#/Vol] 7.9 10*3/uL 4.4-11.0 [facility] Determination of erythrocyte mean corpuscular volume (MCV)Ordered By: Radha Villalobos on 01-13-2024 MCV (RBC) [Entitic vol] 87.3 fL 81-99 [facility] Erythrocyte distribution wid th ratioOrdered By: Radha Villalobos on 01-13-2024 Erythrocyte distribution width (RBC) [Ratio] 14.3 % 11.6-14.6 [facility] Erythrocyte distribution wid th standard deviationOrdered By: Radha Villalobos on 01-13-2024 Erythrocyte distribution width (RBC) [Entitic vol] 45.1 fL 35.1-43.9 [facility] Hematocrit Auto (Bld) [Volum e fraction]Ordered By: Radha Villalobos on 01-13-2024 Hematocrit (Bld) [Volume fraction] 34.3 % 37-47 [facility] Immature granulocytes/100 WB C Auto (Bld)Ordered By: Radha Villalobos on 01-13-2024 Immature granulocytes/100 WBC (Bld) 0.400 % 0.0-0.9 [facility] Comment on above: IG% - Immature Granu locytes (promyelocytes, myelocytes and metamyelocytes) > 1% indicates that a LEFT SHIFT is Present. Laboratory - Hematology and Cell countsOrdered By: Radha Villalobos on 01-13-2024 MCH (RBC) [Entitic mass] 29.0 pg 27.0-32.0 [facility] MCHC (RBC) [Mass/Vol] 33.2 g/dL 32-36 [facility] Nucleated RBC/100 WBC (Bld) [Ratio] 0 % 0-5 [facility] Platelet mean volume (Bld) [Entitic vol] 11.6 fL 6.2-12.0 [facility] Platelets (Bld) [#/Vol] 166 10*3/uL 150-450 [facility] RBC Auto (Bld) [#/Vol]Ordere d By: Radha Villalobos on 01-13-2024 RBC (Bld) [#/Vol] 3.93 10*6/uL 4.2-5.4 [facility] Serum Treponema species anti body detectionOrdered By: Radha Villalobos on 01-13-2024 Treponema sp Ab Ql (S) Non-Reactive [facility] - Chemistry and C hemistry - challengeon 01-08-2024 Glucose Ql (U) Negative [facility] - Urinalysison Protein Ql (U) Negative [facility] No Panel InformationOrdered By: Radha Villalobos on 01-08-2024 Group B Streptococcus Culture Group B Beta Streptococcus is not isolated. [facility] Bilirubin Test strip Ql (U)O rdered By: Fanta Zarate on 01-02-2024 Bilirubin Ql (U) Negative Negative [facility] Culture, urineOrdered By: Justin Zarate on 01-02-2024 Bacteria identified Cx Nom (U) Culture exhibits no growth. [facility] Ketones Test strip Ql (U)Ord ered By: Fanta Zarate on 01-02-2024 Ketones Ql (U) 150 mg/dl Negative [facility] Comment on above: CRITICAL VALUE *HCRI TICAL VALUE VERIFIED. CALLED TO ANN KO (WP)01/02/24 1147 Sagar Guzman.RESULTS READ BACK BY SAME. Nitrite Test strip Ql (U)Ord ered By: Fanta Zarate on 01-02-2024 Nitrite Ql (U) Negative Negative [facility] Protein Test strip Ql (U)Ord ered By: Fanta Zarate on 01-02-2024 Protein Ql (U) Negative Negative [facility] Urine blood detectionOrdered By: Fanta Zarate on 01-02-2024 RBC Ql (U) Negative Negative [facility] Urine clarityOrdered By: Douglas Zarate on 01-02-2024 Clarity (U) Sl. Cloudy Clear [facility] Urine color determinationOrd ered By: Fanta Zarate on 01-02-2024 Color (U) Yellow Yellow [facility] Urine glucose detectionOrder ed By: Fanta Zarate on 01-02-2024 Glucose Ql (U) Normal mg/dl Normal [facility] Urine leukocyte esterase det ection by dipstickOrdered By: Fanta Zarate on 01-02-2024 Leukocyte esterase Test strip Ql (U) 25 /ul Negative [facility] Urine pHOrdered By: Fanta blanchard on 01-02-2024 pH (U) 6.5 [pH] 5.0 - 8.0 [facility] Urine specific gravity measu rementOrdered By: Fanta Zarate on 01-02-2024 Specific gravity (U) [Rel density] 1.010 1.002-1.030 [facility] Urine urobilinogen measureme ntOrdered By: Fanta Zarate on 01-02-2024 Urobilinogen Ql (U) Normal mg/dl Normal [facility] Culture, urineOrdered By: Neo Villalobos on 12-11-2023 Bacteria identified Cx Nom (U) Culture exhibits no growth. [facility] Gram stain for investigation of transfusion reactionOrdered By: Radha Villalobos on 12-11-2023 Microscopic observation Gram stain Nom (Unsp spec) [facility] - Chemistry and C hemistry - challengeon 12-11-2023 Bilirubin Ql (U) Negative [facility] Glucose Ql (U) Negative [facility] Ketones Ql (U) Negative [facility] pH (U) 6.0 [pH] [facility] Specific gravity (U) [Rel density] 1.015 [facility] Urobilinogen (U) [Mass/Vol] 0.0497144 mg/dL [facility] Laboratory - Hematology and Cell countson 12-11-2023 Hemoglobin Ql (U) Negative [facility] - Specimen inform ationon 12-11-2023 Clarity (U) Clear [facility] Color (U) Yellow [facility] - Urinalysison Nitrite Ql (U) Negative [facility] Protein Ql (U) Negative [facility] No Panel InformationOrdered By: Radha Villalobos on 12-11-2023 Genital Culture Neisseria or beta-hemolytic Streptococcus isolated. [facility] No Panel Informationon 12-10 Urine Leukocytes Positive [facility] - Chemistry and C hemistry - challengeon 11-28-2023 Glucose Ql (U) Negative [facility] - Urinalysison Protein Ql (U) Negative [facility] - Chemistry and C hemistry - challengeon 11-13-2023 Glucose Ql (U) Negative [facility] Laboratory - Urinalysison Protein Ql (U) Negative [facility] Gestational diabetes screen 1-hour screen with 50g oral glucose loadOrdered By: Fanta Zarate on 10-17-2023 Glucose 1 Hr post 50 g glucose PO [Mass/Vol] 102 mg/dL 70-140 [facility] Laboratory - Chemistry and C hemistry - challengeon 10-17-2023 Glucose Ql (U) Negative [facility] Laboratory - Urinalysison Protein Ql (U) Negative [facility] Laboratory - Chemistry and C hemistry - challengeon 07-25-2023 Glucose Ql (U) Negative [facility] Laboratory - Urinalysison Protein Ql (U) Negative [facility] COVID-19 virus antigen assay Ordered By: Scott Artis on 07-12-2023 SARS-CoV-2 (COVID-19) Ag IA.rapid Ql (Resp) [facility] COVID-19 virus antigen assay Ordered By: Scott Artis on 07-11-2023 SARS-CoV-2 (COVID-19) Ag IA.rapid Ql (Resp) [facility] Absolute lymphocyte countOrd ered By: Fanta Zarate on 06-24-2023 Lymphocytes Auto (Unsp spec) [#/Vol] 1.76 10*3/uL 0.83-4.51 [facility] Basophil percentageOrdered B y: Fanta Zarate on 06-24-2023 Basophils/100 WBC (Bld) 0.7 % 0-1 [facility] Eosinophils/100 WBC (Bld) 2.6 % 0-5 [facility] Neutrophils (Bld) [#/Vol] 3.7 10*3/uL 2.0-7.7 [facility] Neutrophils/100 WBC (Bld) 60.6 % 47-70 [facility] WBC (Bld) [#/Vol] 6.1 10*3/uL 4.4-11.0 [facility] Blood erythrocytes count (nu mber/volume)Ordered By: Fanta Zarate on 06-24-2023 RBC (Bld) [#/Vol] 4.32 10*6/uL 4.2-5.4 [facility] Blood hemoglobin measurement (mass/volume)Ordered By: Fanta Zarate on 06-24-2023 Hemoglobin (Bld) [Mass/Vol] 12.3 g/dL 12.0-15.0 [facility] Blood lymphocytes/100 leukoc ytesOrdered By: Fanta Zarate on 06-24-2023 Lymphocytes/100 WBC (Bld) 29.0 % 19-41 [facility] Blood monocytes/100 leukocyt esOrdered By: Fanta Zarate on 06-24-2023 Monocytes/100 WBC (Bld) 6.6 % 0-10 [facility] Blood platelet mean volumeOr dered By: Fanta Zarate on 06-24-2023 Platelet mean volume (Bld) [Entitic vol] 10.3 fL 6.2-12.0 [facility] Cervical or vagninal specime n microscopic examination by cytology stain (reported asOrdered By: Fanta Zarate on 06-24-2023 Cytology report Cyto stain Doc (Cvx/Vag) Comment . [facility] Comment on above: The Pap smear is [...] rRNA JIMMY+probe Ql (Unsp spec) Negative Negative [facility] Culture, urineOrdered By: Justin Zarate on 06-24-2023 Bacteria identified Cx Nom (U) Culture exhibits no growth. [facility] Bacteria identified Cx Nom (U) Culture exhibits no growth. [facility] Determination of erythrocyte mean corpuscular volume (MCV)Ordered By: Fanta Zarate on 06-24-2023 MCV (RBC) [Entitic vol] 87.3 fL 81-99 [facility] HIV 1 and HIV-2 antibody ass ay with HIV-1 p24 antigen detectionOrdered By: Fanta Zarate on 06-24-2023 HIV 1+2 Ab+HIV1 p24 Ag IA Ql Non-Reactive Nonreactive [facility] Hematocrit Auto (Bld) [Volum e fraction]Ordered By: Fanta Zarate on 06-24-2023 Hematocrit (Bld) [Volume fraction] 37.7 % 37-47 [facility] Laboratory - CytologyOrdered By: Fanta Zarate on 06-24-2023 [employer]ather [employer] Operator Cyto stain Nom (Cvx/Vag) [ID] Comment . [facility] Comment on above: Penny Heredia, [employer] hnologist (ASCP) Laboratory - Hematology and Cell countsOrdered By: Fanta Zarate on 06-24-2023 Erythrocyte distribution width (RBC) [Entitic vol] 39.6 fL 35.1-43.9 [facility] Erythrocyte distribution width (RBC) [Ratio] 12.5 % 11.6-14.6 [facility] Immature granulocytes/100 WBC (Bld) 0.500 % 0.0-0.9 [facility] Comment on above: IG% - Immature Granu locytes (promyelocytes, myelocytes and metamyelocytes) > 1% indicates that a LEFT SHIFT is Present. MCH (RBC) [Entitic mass] 28.5 pg 27.0-32.0 [facility] Nucleated RBC/100 WBC (Bld) [Ratio] 0 % 0-5 [facility] Laboratory - Microbiology an d Antimicrobial susceptibilityOrdered By: Fanta Zarate on 06-24-2023 N. gonorrhoeae DNA JIMMY+probe Ql (Unsp spec) Negative Negative [facility] Comment on above: Performed at: =G - L [address] [id number] Director: Leta Holt MD, Phone: [phone] Laboratory - Miscellaneous t estsOrdered By: Fanta Zarate on 06-24-2023 Service comment (Unsp spec) [Interp] Comment . [facility] Comment on above: This liquid based Th inPrep(R) pap test was screened withthe use of an image guided system. Service comment (Unsp spec) [Interp] . . [facility] [Mass/Vol]Or dered By: Fanta Zarate on 06-24-2023 MCHC (RBC) [Mass/Vol] 32.6 g/dL 32-36 [facility] No Panel InformationOrdered By: Fanta Zarate on 06-24-2023 Human Papillomavirus Screen Comment . [facility] Comment on above: The HPV DNA reflex c riteria were not met with this specimenresult therefore, no HPV testing was performed.Performed at: [facility] [id number] [place], [place] [id number] Director: Juan Doyle MD, Phone: [phone] at: [facility] - [facility] [id number] Director: Leta Holt MD, Phone: [phone] Pathology report final diagnosis Narrative Comment . [facility] Comment on above: NEGATIVE FOR INTRAEP ITHELIAL LESION OR MALIGNANCY. Hepatitis B Surface Antigen Non-Reactive Nonreactive [facility] Hepatitis C Antibody Non-Reactive Nonreactive [facility] Comment on above: Non Reactive: < 0.8 Equivocal: >/= 0.8 to < 1.0 Reactive: >/= 1.0The CDC recommends that a reactive/equivocal HCV antibody result be followed up by the HCV Nucleic Acid Amplificationtest (410609) Rubella IgG Antibody Reactive Nonreactive [facility] Comment on above: Antibody Results Int erpretation of Immune Status Non Reactive Presumed Non-Immune Equivocal Equivocal Reactive Presumed Immune Platelets bldOrdered By: Douglas Zarate on 06-24-2023 Platelets (Bld) [#/Vol] 219 10*3/uL 150-450 [facility] Serum Treponema species anti body detectionOrdered By: Fanta Octavioshivani on 06-24-2023 Treponema sp Ab Ql (S) Non-Reactive [facility] Laboratory - Chemistry and C hemistry - challengeon 08-01-2022 Free T4 [Mass/Vol] 0.84 ng/dL 0.76-1.46 [facility] Work Phone: No Panel Informationon 08-01 Thyroid Stimulating Hormone (TSH) 1.19 uIU/mL 0.358-3.74 [facility] Work Phone: Absolute lymphocyte counton 06-21-2022 Lymphocytes Auto (Unsp spec) [#/Vol] 1.28 10*3/uL 0.83-4.51 [facility] Work Phone: Basophil percentageon 2021 Basophils/100 WBC (Bld) 0.3 % 0-1 [facility] Work Phone: Eosinophils/100 WBC (Bld) 1.4 % 0-5 [facility] Work Phone: Neutrophils (Bld) [#/Vol] 4.3 10*3/uL 2.0-7.7 [facility] Work Phone: Neutrophils/100 WBC (Bld) 68.8 % 47-70 [facility] Work Phone: WBC (Bld) [#/Vol] 6.2 10*3/uL 4.4-11.0 [facility] Work Phone: [phone] Blood erythrocytes count (nu mber/volume)on 06-21-2022 RBC (Bld) [#/Vol] 3.88 10*6/uL 4.2-5.4 [facility] Work Phone: Blood hemoglobin measurement (mass/volume)on 06-21-2022 Hemoglobin (Bld) [Mass/Vol] 10.8 g/dL 12.0-15.0 [facility] Work Phone: Blood lymphocytes/100 leukoc yteson 06-21-2022 Lymphocytes/100 WBC (Bld) 20.5 % 19-41 [facility] Work Phone: Blood monocytes/100 leukocyt eson 06-21-2022 Monocytes/100 WBC (Bld) 8.7 % 0-10 [facility] Work Phone: Blood platelet mean volumeon 06-21-2022 Platelet mean volume (Bld) [Entitic vol] 12.7 fL 6.2-12.0 [facility] Work Phone: Determination of erythrocyte mean corpuscular volume (MCV)on 06-21-2022 MCV (RBC) [Entitic vol] 85.3 fL 81-99 [facility] Work Phone: Hematocrit Auto (Bld) [Volum e fraction]on 06-21-2022 Hematocrit (Bld) [Volume fraction] 33.1 % 37-47 [facility] Work Phone: Laboratory - Hematology and Cell countson 06-21-2022 Erythrocyte distribution width (RBC) [Entitic vol] 40.7 fL 35.1-43.9 [facility] Work Phone: Erythrocyte distribution width (RBC) [Ratio] 13.5 % 11.6-14.6 [facility] Work Phone: Immature granulocytes/100 WBC (Bld) 0.300 % 0.0-0.9 [facility] Work Phone: Comment on above: IG% - Immature Granu locytes (promyelocytes, myelocytes and metamyelocytes) > 1% indicates that a LEFT SHIFT is Present. MCH (RBC) [Entitic mass] 27.8 pg 27.0-32.0 [facility] Work Phone: [phone] Nucleated RBC/100 WBC (Bld) [Ratio] 0 % 0-5 [facility] Work Phone: MCHC Auto (RBC) [Mass/Vol]on 06-21-2022 MCHC (RBC) [Mass/Vol] 32.6 g/dL 32-36 [facility] Work Phone: Platelets bldon 06-21-2022 Platelets (Bld) [#/Vol] 121 10*3/uL 150-450 [facility] Work Phone: Basophil percentageon 2021 WBC (Bld) [#/Vol] 8.8 10*3/uL 4.4-11.0 [facility] Work Phone: Blood erythrocytes count (nu mber/volume)on 06-07-2022 RBC (Bld) [#/Vol] 3.98 10*6/uL 4.2-5.4 [facility] Work Phone: Blood hemoglobin measurement (mass/volume)on 06-07-2022 Hemoglobin (Bld) [Mass/Vol] 11.3 g/dL 12.0-15.0 [facility] Work Phone: Blood platelet mean volumeon 06-07-2022 Platelet mean volume (Bld) [Entitic vol] 12.0 fL 6.2-12.0 [facility] Work Phone: Determination of erythrocyte mean corpuscular volume (MCV)on 06-07-2022 MCV (RBC) [Entitic vol] 86.4 fL 81-99 [facility] Work Phone: Hematocrit Auto (Bld) [Volum e fraction]on 06-07-2022 Hematocrit (Bld) [Volume fraction] 34.4 % 37-47 [facility] Work Phone: Laboratory - Hematology and Cell countson 06-07-2022 Erythrocyte distribution width (RBC) [Entitic vol] 41.1 fL 35.1-43.9 [facility] Work Phone: Erythrocyte distribution width (RBC) [Ratio] 13.3 % 11.6-14.6 [facility] Work Phone: MCH (RBC) [Entitic mass] 28.4 pg 27.0-32.0 [facility] Work Phone: MCHC Auto (RBC) [Mass/Vol]on 06-07-2022 MCHC (RBC) [Mass/Vol] 32.8 g/dL 32-36 [facility] Work Phone: No Panel Informationon 06-07 Vaginal Amniotic Fluid Detection Negative Negative [facility] Work Phone: Comment on above: Amniotic fluid not p resent indicates No Rupture of FetalMembranes at time of specimen collection. Platelets bldon 06-07-2022 Platelets (Bld) [#/Vol] 136 10*3/uL 150-450 [facility] Work Phone: Bilirubin Test strip Ql (U)o n 04-23-2022 Bilirubin Ql (U) Negative Negative [facility] Work Phone: Ketones Test strip Ql (U)on 04-23-2022 Ketones Ql (U) Negative Negative [facility] Work Phone: Nitrite Test strip Ql (U)on 04-23-2022 Nitrite Ql (U) Negative Negative [facility] Work Phone: Protein Test strip Ql (U)on 04-23-2022 Protein Ql (U) Negative Negative [facility] Work Phone: Urine blood detectionon 04-06 RBC Ql (U) 10 /ul Negative [facility] Work Phone: Urine clarityon 04-23-2022 Clarity (U) Sl. Cloudy Clear [facility] Work Phone: Urine color determinationon 04-23-2022 Color (U) Yellow Yellow [facility] Work Phone: Urine glucose detectionon Glucose Ql (U) Normal mg/dl Normal [facility] Work Phone: Urine leukocyte esterase det ection by dipstickon 04-23-2022 Leukocyte esterase Test strip Ql (U) 500 /ul Negative [facility] Work Phone: Urine pHon 04-23-2022 pH (U) 7.0 [pH] 5.0 - 8.0 [facility] Work Phone: Urine specific gravity measu rementon 04-23-2022 Specific gravity (U) [Rel density] 1.005 1.002-1.030 [facility] Work Phone: Urobilinogen Auto test strip Ql (U)on 04-23-2022 Urobilinogen Ql (U) Normal mg/dl Normal [facility] Work Phone: Basophil percentageon 2021 WBC (Bld) [#/Vol] 7.9 10*3/uL 4.4-11.0 [facility] Work Phone: Blood erythrocytes count (nu mber/volume)on 03-27-2022 RBC (Bld) [#/Vol] 4.05 10*6/uL 4.2-5.4 [facility] Work Phone: Blood hemoglobin measurement (mass/volume)on 03-27-2022 Hemoglobin (Bld) [Mass/Vol] 11.9 g/dL 12.0-15.0 [facility] Work Phone: Blood platelet mean volumeon 03-27-2022 Platelet mean volume (Bld) [Entitic vol] 11.0 fL 6.2-12.0 [facility] Work Phone: Determination of erythrocyte mean corpuscular volume (MCV)on 03-27-2022 MCV (RBC) [Entitic vol] 89.9 fL 81-99 [facility] Work Phone: Gestational diabetes screen 1-hour screen with 50g oral glucose loadon 03-27-2022 Glucose 1 Hr post 50 g glucose PO [Mass/Vol] 93 mg/dL 70-140 [facility] Work Phone: Hematocrit Auto (Bld) [Volum e fraction]on 03-27-2022 Hematocrit (Bld) [Volume fraction] 36.4 % 37-47 [facility] Work Phone: Laboratory - Hematology and Cell countson 03-27-2022 Erythrocyte distribution width (RBC) [Entitic vol] 43.7 fL 35.1-43.9 [facility] Work Phone: Erythrocyte distribution width (RBC) [Ratio] 13.3 % 11.6-14.6 [facility] Work Phone: MCH (RBC) [Entitic mass] 29.4 pg 27.0-32.0 [facility] Work Phone: MCHC Auto (RBC) [Mass/Vol]on 03-27-2022 MCHC (RBC) [Mass/Vol] 32.7 g/dL 32-36 [facility] Work Phone: Platelets bldon 03-27-2022 Platelets (Bld) [#/Vol] 178 10*3/uL 150-450 [facility] Work Phone: [phone] NOVEL CORONAVIRUSon 05-29-20 21 NARRATIVE This test was perfor med using isothermal JIMMY and has been approved as Emergency Use Authorization (EUA) for the qualitative detection [id number] nucleic acid. Normal [facility] Comment on above: Performed By: #### C OVID #### Testing performed at [place] [id number] SARS-CoV-2 (COVID-19) RNA JIMMY+probe Ql (Unsp spec) Not detected Normal NOT DETECTED [facility] Comment on above: Result Comment: Nega [...] #### C OVID #### Testing performed at [address] [address] NOVEL CORONAVIRUSon 05-25-20 21 NARRATIVE This test was perfor med using isothermal JIMMY and has been approved as Emergency Use Authorization (EUA) for the qualitative detection [id number] nucleic acid. Normal [facility] Comment on above: Performed By: #### C OVID #### Testing performed at [address] [address] SARS-CoV-2 (COVID-19) RNA JIMMY+probe Ql (Unsp spec) Not detected Normal NOT DETECTED [facility] Comment on above: Result Comment: Nega [...] #### C OVID #### Testing performed at [address] [address] URINE CULTUREon 02-27-2021 Bacteria identified Cx Nom (U) SPECIMEN DESCRIPTION URINE CLEAN CATCH UA DIPSTICK LEUKOCYTE POSITIVE * Result Note: NITRITE NEGATIVE * CULTURE NO PATHOGENS ISOLATED * Result Note: Testing performed at [place] [address] * REPORT STATUS 03/01/2021 * Result Note: FINAL * Normal [facility] Comment on above: Performed By: #### A URNC #### Testing performed at [address] [address] Testing performed at [address] [address] URINE MACROSCOPICon 02-28-20 21 Bilirubin Ql (U) Negative Normal NEGATIVE [facility] Comment on above: Performed By: #### U MAC, UMIC #### Testing performed at [address] [address] Clarity (U) CLEAR Normal CLEAR [facility] Comment on above: Performed By: #### U MAC, UMIC #### Testing performed at [address] [address] Color (U) YELLOW Normal YELLOW [facility] Comment on above: Performed By: #### U MAC, UMIC #### Testing performed at [address] [address] Glucose Ql (U) Negative Normal NEGATIVE [facility] Comment on above: Performed By: #### U MAC, UMIC #### Testing performed at [address] [address] pH (U) 5.5 [pH] Normal 5.0-7.0 [facility] Comment on above: Performed By: #### U MAC, UMIC #### Testing performed at [address] [address] URINE HEMOGLOBIN SMALL Abnormal NEGATIVE [facility] Comment on above: Performed By: #### U MAC, UMIC #### Testing performed at [address] [address] URINE KETONE TRACE Abnormal NEGATIVE [facility] Comment on above: Performed By: #### U MAC, UMIC #### Testing performed at [address] [address] URINE LEUKOTEST SMALL Abnormal NEGATIVE [facility] Comment on above: Performed By: #### U MAC, UMIC #### Testing performed at [address] [address] URINE NITRATES Negative Normal NEGATIVE [facility] Comment on above: Performed By: #### U MAC, UMIC #### Testing performed at [address] [address] URINE SPEC GRAVITY >1.030 High 1.010-1.025 [facility] Comment on above: Performed By: #### U MAC, UMIC #### Testing performed at [address] [address] URINE TOTAL PROTEIN Negative Normal NEGATIVE [facility] Comment on above: Performed By: #### U MAC, UMIC #### Testing performed at [address] [address] Urobilinogen Qn (U) 0.2 {Ita'U}/dL Normal 0.2-1.0 [facility] Comment on above: Performed By: #### U MAC, UMIC #### Testing performed at [address] [address] URINE MICROSCOPICon 2420 21 Bacteria LM.HPF (Urine sed) [#/Area] Negative Normal NEGATIVE [facility] Comment on above: Performed By: #### U MAC, UMIC #### Testing performed at [address] [address] CASTS NONE Normal NONE [facility] Comment on above: Performed By: #### U MAC, UMIC #### Testing performed at [address] [place] [address] CRYSTAL NONE Normal NONE [facility] Comment on above: Performed By: #### U MAC, UMIC #### Testing performed at [address] [place] [address] Epithelial cells LM Ql (Urine sed) 1 TO 5 Normal [facility] Comment on above: Performed By: #### U MAC, UMIC #### Testing performed at [address] [address] Mucus Ql (Urine sed) Negative Normal NEGATIVE [facility] Comment on above: Performed By: #### U MAC, UMIC #### Testing performed at [address] [address] URINE COMMENT REFLEX CULTURE PER ESTABLISHED CRITERIA. Normal [facility] Comment on above: Performed By: #### U MAC, UMIC #### Testing performed at [address] [address] URINE RBC'S 1 TO 5 Normal NEGATIVE [facility] Comment on above: Performed By: #### U MAC, UMIC #### Testing performed at [address] [address] URINE WBC'S 1 TO 5 Normal NEGATIVE [facility] Comment on above: Performed By: #### U MAC, UMIC #### Testing performed at [address] [place] [address] No Panel InformationOrdered By: Sagar Rodriguez on 02-26-2021 [facility] URINALYSIS, MACROOrdered By: Sagar Rodriguez on 02-26-2021 Bilirubin Ql (U) Negative NEGATIVE [facility] Clarity (U) CLEAR CLEAR [facility] Color (U) YELLOW YELLOW [facility] Glucose Test strip (U) [Mass/Vol] Negative NEGATIVE mg/dl [facility] Hemoglobin Ql (U) SMALL Abnormal NEGATIVE [facility] Interpretation and review of laboratory results Abnormal [facility] Ketones (U) [Mass/Vol] TRACE Abnormal NEGAT DUNIA mg/dl [facility] Leukocyte esterase Test strip Ql (U) SMALL Abnormal NEGATIVE [facility] Nitrite Ql (U) Negative NEGATIVE [facility] pH (U) 5.5 [pH] [facility] Protein Ql (U) Negative NEGATIVE mg/dl [facility] Specific gravity (U) [Rel density] >1.030 High [facility] Urobilinogen (U) [Mass/Vol] 0.2 mg/dL [facility] URINE MICROSCOPICOrdered By: Sagar Rodriguez on 02-26-2021 Bacteria LM.HPF (Urine sed) [#/Area] Negative NEGATIVE [facility] Casts LM.LPF (Urine sed) [#/Area] NONE NONE /LPF [facility] Crystals LM Nom (Urine sed) NONE NONE [facility] Epithelial cells LM Ql (Urine sed) 1 TO 5 /HPF [facility] Mucus Ql (Urine sed) Negative NEGATIVE [facility] RBC LM.HPF (Urine sed) [#/Area] 1 TO 5 NEGATIVE /HPF [facility] Urine sediment comments LM Linus (Urine sed) REFLEX CULTURE PER ESTABLISHED CRITERIA. [facility] WBC LM.HPF (Urine sed) [#/Area] 1 TO 5 NEGATIVE /HPF [facility] CBCon 02-13-2021 ABSOLUTE BAS 0.1 10*3/uL Normal 0.0-0.2 [facility] Comment on above: Result Comment: Test ing performed at [place] [address] Performed By: #### R TOXR, UMAC, UMIC #### [place] [address] ABSOLUTE EOS 0.00 10*3/uL Normal 0.0-0.7 [facility] Comment on above: Performed By: #### R TOXR, UMAC, UMIC #### [place] [address] ABSOLUTE NEUTROPHIL COUNT 13.5 10*3/uL High 1.4-6.5 [facility] Comment on above: Performed By: #### R TOXR, UMAC, UMIC #### Testing performed at [address] [place] [address] Basophils/100 WBC (Bld) 0.4 % Normal 0.0-2.0 [facility] Comment on above: Performed By: #### R TOXR, UMAC, UMIC #### Testing performed at [address] [address] DTYPE AUTO DIFF Normal [facility] Comment on above: Performed By: #### R TOXR, UMAC, UMIC #### Testing performed at [address] [address] Eosinophils/100 WBC (Bld) 0.1 % Normal 0.0-11.0 [facility] Comment on above: Performed By: #### R TOXR, UMAC, UMIC #### Testing performed at [address] [address] Lymphocytes (Bld) [#/Vol] 1.40 10*3/uL Normal 1.2-3.4 [facility] Comment on above: Performed By: #### R TOXR, UMAC, UMIC #### Testing performed at [address] [address] Lymphocytes/100 WBC (Bld) 8.9 % Low 20.0-55.0 [facility] Comment on above: Performed By: #### R TOXR, UMAC, UMIC #### Testing performed at [address] [address] Monocytes (Bld) [#/Vol] 0.9 10*3/uL High 0.0-0.7 [facility] Comment on above: Performed By: #### R TOXR, UMAC, UMIC #### Testing performed at [address] [address] Monocytes/100 WBC (Bld) 5.7 % Normal 0.0-10.0 [facility] Comment on above: Performed By: #### R TOXR, UMAC, UMIC #### Testing performed at [address] [address] Neutrophils/100 WBC (Bld) 84.9 % High 37.0-75.0 [facility] Comment on above: Performed By: #### R TOXR, UMAC, UMIC #### Testing performed at [address] [address] Erythrocyte distribution width (RBC) [Ratio] 14.1 % Normal 11.5-14.5 [facility] Comment on above: Performed By: #### R TOXR, UMAC, UMIC #### Testing performed at [address] [address] Hematocrit (Bld) [Volume fraction] 32.2 % Low 36.0-48.0 [facility] Comment on above: Performed By: #### R TOXR, UMAC, UMIC #### Testing performed at [address] [address] Hemoglobin (Bld) [Mass/Vol] 10.9 g/dL Low 12.0-16.0 [facility] Comment on above: Performed By: #### R TOXR, UMAC, UMIC #### Testing performed at [address] [address] MCH (RBC) [Entitic mass] 28.9 pg Normal 26.0-35.0 [facility] Comment on above: Performed By: #### R TOXR, UMAC, UMIC #### Testing performed at [address] [address] MCHC (RBC) [Mass/Vol] 33.8 g/dL Normal 27.0-37.0 [facility] Comment on above: Performed By: #### R TOXR, UMAC, UMIC #### Testing performed at [address] [address] MCV (RBC) [Entitic vol] 85.6 fL Normal 80.0-100.0 [facility] Comment on above: Performed By: #### R TOXR, UMAC, UMIC #### Testing performed at [address] [address] Platelet mean volume (Bld) [Entitic vol] 9.5 fL Normal 7.4-11.0 [facility] Comment on above: Performed By: #### R TOXR, UMAC, UMIC #### [place] [address] Platelets (Bld) [#/Vol] 129 10*3/uL Low 130.0-400.0 [facility] Comment on above: Performed By: #### R TOXR, UMAC, UMIC #### [place] [address] RBC (Bld) [#/Vol] 3.76 10*6/uL Low 4.0-5.4 [facility] Comment on above: Performed By: #### R TOXR, UMAC, UMIC #### [place] [address] WBC (Bld) [#/Vol] 15.9 10*3/uL High 3.6-11.0 [facility] Comment on above: Performed By: #### R TOXR, UMAC, UMIC #### [place] [address] CBCon 02-12-2021 ABSOLUTE BAS 0.1 10*3/uL Normal 0.0-0.2 [facility] Comment on above: Result Comment: Test ing performed at [place] [address] Performed By: #### R TOXR, UMAC, UMIC #### [place] [address] ABSOLUTE EOS 0.10 10*3/uL Normal 0.0-0.7 [facility] Comment on above: Performed By: #### R TOXR, UMAC, UMIC #### [place] [address] ABSOLUTE NEUTROPHIL COUNT 7.6 10*3/uL High 1.4-6.5 [facility] Comment on above: Performed By: #### R TOXR, UMAC, UMIC #### [place] [address] Basophils/100 WBC (Bld) 0.9 % Normal 0.0-2.0 [facility] Comment on above: Performed By: #### R TOXR, UMAC, UMIC #### Testing performed at [address] [address] DTYPE AUTO DIFF Normal [facility] Comment on above: Performed By: #### R TOXR, UMAC, UMIC #### Testing performed at [address] [address] Eosinophils/100 WBC (Bld) 0.6 % Normal 0.0-11.0 [facility] Comment on above: Performed By: #### R TOXR, UMAC, UMIC #### Testing performed at [address] [address] Lymphocytes (Bld) [#/Vol] 2.20 10*3/uL Normal 1.2-3.4 [facility] Comment on above: Performed By: #### R TOXR, UMAC, UMIC #### Testing performed at [address] [address] Lymphocytes/100 WBC (Bld) 20.5 % Normal 20.0-55.0 [facility] Comment on above: Performed By: #### R TOXR, UMAC, UMIC #### Testing performed at [address] [address] Monocytes (Bld) [#/Vol] 0.7 10*3/uL Normal 0.0-0.7 [facility] Comment on above: Performed By: #### R TOXR, UMAC, UMIC #### Testing performed at [address] [address] Monocytes/100 WBC (Bld) 6.3 % Normal 0.0-10.0 [facility] Comment on above: Performed By: #### R TOXR, UMAC, UMIC #### Testing performed at [address] [address] Neutrophils/100 WBC (Bld) 71.7 % Normal 37.0-75.0 [facility] Comment on above: Performed By: #### R TOXR, UMAC, UMIC #### Testing performed at [address] [address] Erythrocyte distribution width (RBC) [Ratio] 14.0 % Normal 11.5-14.5 [facility] Comment on above: Performed By: #### R TOXR, UMAC, UMIC #### Testing performed at [place] [id number] Hematocrit (Bld) [Volume fraction] 36.7 % Normal 36.0-48.0 [facility] Comment on above: Performed By: #### R TOXR, UMAC, UMIC #### Testing performed at [place] [id number] Hemoglobin (Bld) [Mass/Vol] 12.4 g/dL Normal 12.0-16.0 [facility] Comment on above: Performed By: #### R TOXR, UMAC, UMIC #### Testing performed at [address] [address] MCH (RBC) [Entitic mass] 28.5 pg Normal 26.0-35.0 [facility] Comment on above: Performed By: #### R TOXR, UMAC, UMIC #### Testing performed at [address] [address] MCHC (RBC) [Mass/Vol] 33.7 g/dL Normal 27.0-37.0 [facility] Comment on above: Performed By: #### R TOXR, UMAC, UMIC #### Testing performed at [address] [address] MCV (RBC) [Entitic vol] 84.5 fL Normal 80.0-100.0 [facility] Comment on above: Performed By: #### R TOXR, UMAC, UMIC #### Testing performed at [address] [address] Platelet mean volume (Bld) [Entitic vol] 9.1 fL Normal 7.4-11.0 [facility] Comment on above: Performed By: #### R TOXR, UMAC, UMIC #### [place] [address] Platelets (Bld) [#/Vol] 152 10*3/uL Normal 130.0-400.0 [facility] Comment on above: Performed By: #### R TOXR, UMAC, UMIC #### [place] [address] RBC (Bld) [#/Vol] 4.34 10*6/uL Normal 4.0-5.4 [facility] Comment on above: Performed By: #### R TOXR, UMAC, UMIC #### [place] [address] WBC (Bld) [#/Vol] 10.6 10*3/uL Normal 3.6-11.0 [facility] Comment on above: Performed By: #### R TOXR, UMAC, UMIC #### [place] [address] NOVEL CORONAVIRUSon 02-13-20 21 NARRATIVE This test was perfor med using isothermal JIMMY and has been approved as Emergency Use Authorization (EUA) for the qualitative detection [id number] nucleic acid. Normal [facility] Comment on above: Result Comment: Test ing performed at [place] [address] Performed By: #### R TOXR, UMAC, UMIC #### [place] [address] SARS-CoV-2 (COVID-19) RNA JIMMY+probe Ql (Unsp spec) Not detected Normal NOT DETECTED [facility] Comment on above: Result Comment: Nega [...] TOXR, UMAC, UMIC #### [place] [address] TYPE AND SCREEN CROSSMATCH C ONVERTIBLEon 02-12-2021 TYPE AND SCREEN CROSSMATCH CONVERTIBLE UNITS ORDERED 0 WORKUP EXPIRES 02/15/2021,2359 ABO/RH(D) O POSITIVE ANTIBODY SCREEN NEGATIVE ARM BAND NUMBER [id number] Testing performed at [place] [address] Normal [facility] Comment on above: Performed By: #### R TOXR, UMAC, UMIC #### [place] [address] RAPID TOX SCREEN,URINE WITH REFLEXon 02-11-2021 AMPHETAMINE Negative Normal NEGATIVE [facility] Comment on above: Performed By: #### R TOXR, UMAC, UMIC #### [place] [address] BARBITURATES Negative Normal NEGATIVE [facility] Comment on above: Performed By: #### R TOXR, UMAC, UMIC #### [place] [address] BENZODIAZEPINES Negative Normal NEGATIVE [facility] Comment on above: Performed By: #### R TOXR, UMAC, UMIC #### [place] [address] BUPRENORPHINE Negative Normal NEGATIVE [facility] Comment on above: Result Comment: Test ing performed at [place] [address] Performed By: #### R TOXR, UMAC, UMIC #### [place] [address] CANNABINOIDS Negative Normal NEGATIVE [facility] Comment on above: Performed By: #### R TOXR, UMAC, UMIC #### [place] [address] COCAINE Negative Normal NEGATIVE [facility] Comment on above: Performed By: #### R TOXR, UMAC, UMIC #### Testing performed at [address] [address] METHADONE Negative Normal NEGATIVE [facility] Comment on above: Performed By: #### R TOXR, UMAC, UMIC #### Testing performed at [address] [place] [address] METHAMPHETAMINE Negative Normal NEGATIVE [facility] Comment on above: Performed By: #### R TOXR, UMAC, UMIC #### Testing performed at [address] [address] OPIATES Negative Normal NEGATIVE [facility] Comment on above: Performed By: #### R TOXR, UMAC, UMIC #### [place] [address] OXYCODONE Negative Normal NEGATIVE [facility] Comment on above: Performed By: #### R TOXR, UMAC, UMIC #### Testing performed at [place] [id number] PHENCYCLIDINE Negative Normal NEGATIVE [facility] Comment on above: Performed By: #### R TOXR, UMAC, UMIC #### Testing performed at [address], [facility] PROPOXYPHENE Negative Normal NEGATIVE [facility] Comment on above: Performed By: #### R TOXR, UMAC, UMIC #### [place] [address] TRICYCLIC ANTIDEPRESSANTS Negative Normal NEGATIVE [facility] Comment on above: Performed By: #### R TOXR, UMAC, UMIC #### Testing performed at [address] [address] URINE MACROSCOPICon 02-12-20 Bilirubin Ql (U) Negative Normal NEGATIVE [facility] Comment on above: Performed By: #### R TOXR, UMAC, UMIC #### Testing performed at [address] [address] Clarity (U) CLEAR Normal CLEAR [facility] Comment on above: Performed By: #### R TOXR, UMAC, UMIC #### [place] [address] Color (U) YELLOW Normal YELLOW [facility] Comment on above: Performed By: #### R TOXR, UMAC, UMIC #### [place] [address] Glucose Ql (U) Negative Normal NEGATIVE [facility] Comment on above: Performed By: #### R TOXR, UMAC, UMIC #### [place] [address] pH (U) 6.0 [pH] Normal 5.0-7.0 [facility] Comment on above: Performed By: #### R TOXR, UMAC, UMIC #### [place] [address] URINE HEMOGLOBIN Negative Normal NEGATIVE [facility] Comment on above: Performed By: #### R TOXR, UMAC, UMIC #### [place] [address] URINE KETONE Negative Normal NEGATIVE [facility] Comment on above: Performed By: #### R TOXR, UMAC, UMIC #### [place] [address] URINE LEUKOTEST LARGE Abnormal NEGATIVE [facility] Comment on above: Result Comment: Test ing performed at [place] [address] Performed By: #### R TOXR, UMAC, UMIC #### [place] [address] URINE NITRATES Negative Normal NEGATIVE [facility] Comment on above: Performed By: #### R TOXR, UMAC, UMIC #### [place] [address] URINE SPEC GRAVITY 1.010 Normal 1.010-1.025 [facility] Comment on above: Performed By: #### R TOXR, UMAC, UMIC #### [place] [address] URINE TOTAL PROTEIN Negative Normal NEGATIVE [facility] Comment on above: Performed By: #### R TOXR, UMAC, UMIC #### [place] [address] Urobilinogen Qn (U) 0.2 {Ita'U}/dL Normal 0.2-1.0 [facility] Comment on above: Performed By: #### R TOXR, UMAC, UMIC #### [place] [address] URINE MICROSCOPICon 02-12-20 21 BACTERIA TRACE Abnormal NEGATIVE [facility] Comment on above: Performed By: #### R TOXR, UMAC, UMIC #### [place] [address] CASTS NONE Normal NONE [facility] Comment on above: Performed By: #### R TOXR, UMAC, UMIC #### [place] [address] [facility] Comment on above: Performed By: #### R TOXR, UMAC, UMIC #### [place] [address] Epithelial cells LM Ql (Urine sed) 20 TO 30 Normal [facility] Comment on above: Performed By: #### R TOXR, UMAC, UMIC #### [place] [address] Mucus Ql (Urine sed) TRACE Abnormal NEGATIVE [facility] Comment on above: Performed By: #### R TOXR, UMAC, UMIC #### [place] [address] URINE COMMENT POSSIBLY CONTAMINATE D SPECIMEN, CULTURE MUST BE ORDERED SEPARATELY IF DEEMED NECESSARY. Normal [facility] Comment on above: Result Comment: Test ing performed at [place] [address] Performed By: #### R TOXR, UMAC, UMIC #### [place] [address] URINE RBC'S Negative Normal NEGATIVE [facility] Comment on above: Performed By: #### R TOXR, UMAC, UMIC #### [place] [address] URINE WBC'S '5 TO 10 Normal NEGATIVE [facility] Comment on above: Performed By: #### R TOXR, UMAC, UMIC #### [place] [address] CHLAM/GC AMPLIFon 02-10-2021 CHLAMYDIA NUC. AMP Negative Normal [facility] Comment on above: Result Comment: Refe rence range: Negative GONOCOCCUS NUC. AMP Negative Normal [facility] Comment on above: Result Comment: Refe rence range: Negative PERFORMED AT [facility] AMNISUREon 02-09-2021 AMNISURE Negative Normal NEGATIVE [facility] Comment on above: Result Comment: NO A MNIOTIC FLUID DETECTED Testing performed at [place] [address] Performed By: #### R TOXR, UMAC, UMIC #### [place] [address] FERN TESTon 02-09-2021 FERN TEST Negative Normal [facility] Comment on above: Result Comment: Test ing performed at [place] [address] Performed By: #### R TOXR, UMAC, UMIC #### [place] [address] RAPID TOX SCREEN,URINE WITH REFLEXon 02-09-2021 AMPHETAMINE Negative Normal NEGATIVE [facility] Comment on above: Result Comment: <500 ng/ml CUTOFF Performed By: #### U MAC, RTOXR #### [place] [address] BARBITURATES Negative Normal NEGATIVE [facility] Comment on above: Result Comment: <200 ng/ml CUTOFF Performed By: #### U MAC, RTOXR #### [place] [address] BENZODIAZEPINES Negative Normal NEGATIVE [facility] Comment on above: Result Comment: <150 ng/ml CUTOFF Performed By: #### U MAC, RTOXR #### [place] [address] BUPRENORPHINE Negative Normal NEGATIVE [facility] Comment on above: Result Comment: <10 ng/ml CUTOFF Testing performed at [place] [address] Performed By: #### U MAC, RTOXR #### [place] [address] CANNABINOIDS Negative Normal NEGATIVE [facility] Comment on above: Result Comment: <50 ng/ml CUTOFF Performed By: #### U MAC, RTOXR #### [place] [address] COCAINE Negative Normal NEGATIVE [facility] Comment on above: Result Comment: <150 ng/ml CUTOFF Performed By: #### U MAC, RTOXR #### [place] [address] METHADONE Negative Normal NEGATIVE [facility] Comment on above: Result Comment: <200 ng/ml CUTOFF Performed By: #### U MAC, RTOXR #### [place] [address] METHAMPHETAMINE Negative Normal NEGATIVE [facility] Comment on above: Result Comment: <500 ng/ml CUTOFF Performed By: #### U MAC, RTOXR #### [place] [address] OPIATES Negative Normal NEGATIVE [facility] Comment on above: Result Comment: <100 ng/ml CUTOFF Performed By: #### U MAC, RTOXR #### [place] [address] OXYCODONE Negative Normal NEGATIVE [facility] Comment on above: Result Comment: <100 ng/ml CUTOFF Performed By: #### U MAC, RTOXR #### [place] [address] PHENCYCLIDINE Negative Normal NEGATIVE [facility] Comment on above: Result Comment: <25 ng/ml CUTOFF Performed By: #### U MAC, RTOXR #### Testing performed at [address] [address] PROPOXYPHENE Negative Normal NEGATIVE [facility] Comment on above: Result Comment: <300 ng/ml CUTOFF Performed By: #### U MAC, RTOXR #### Testing performed at [address] [address] TRICYCLIC ANTIDEPRESSANTS Negative Normal NEGATIVE [facility] Comment on above: Result Comment: <300 ng/ml CUTOFF Performed By: #### U MAC, RTOXR #### Testing performed at [address] [address] URINE MACROSCOPICon 02-10-20 Bilirubin Ql (U) Negative Normal NEGATIVE [facility] Comment on above: Performed By: #### U MAC, RTOXR #### Testing performed at [address] [address] Clarity (U) CLEAR Normal CLEAR [facility] Comment on above: Performed By: #### U MAC, RTOXR #### Testing performed at [address] [address] Color (U) YELLOW Normal YELLOW [facility] Comment on above: Performed By: #### U MAC, RTOXR #### Testing performed at [address] [place] [address] Glucose Ql (U) Negative Normal NEGATIVE [facility] Comment on above: Performed By: #### U MAC, RTOXR #### Testing performed at [address] [address] pH (U) 7.0 [pH] Normal 5.0-7.0 [facility] Comment on above: Performed By: #### U MAC, RTOXR #### Testing performed at [address] [address] URINE HEMOGLOBIN Negative Normal NEGATIVE [facility] Comment on above: Performed By: #### U MAC, RTOXR #### Testing performed at [address] [address] URINE KETONE Negative Normal NEGATIVE [facility] Comment on above: Performed By: #### U MAC, RTOXR #### [place] [address] URINE LEUKOTEST Negative Normal NEGATIVE [facility] Comment on above: Result Comment: Test ing performed at [place] [address] Performed By: #### U MAC, RTOXR #### [place] [address] URINE NITRATES Negative Normal NEGATIVE [facility] Comment on above: Performed By: #### U MAC, RTOXR #### [place] [address] URINE SPEC GRAVITY 1.020 Normal 1.010-1.025 [facility] Comment on above: Performed By: #### U MAC, RTOXR #### [place] [address] URINE TOTAL PROTEIN Negative Normal NEGATIVE [facility] Comment on above: Performed By: #### U MAC, RTOXR #### [place] [address] Urobilinogen Qn (U) 2.0 {Ita'U}/dL High 0.2-1.0 [facility] Comment on above: Performed By: #### U MAC, RTOXR #### [place] [address] AMNISURE ROMOrdered By: Pavithra Flower on 02-08-2021 [id number] lacental Ql (Vag fld) Negative NEGATIVE [facility] Comment on above: NO AMNIOTIC FLUID DE TECTED Testing performed at [address] FERN TEST VAGINAL FLUIDOrder ed By: Nehal Flower on 02-08-2021 Crystals LM Nom (Amn fld) Negative [facility] Comment on above: Testing performed at [address] RAPID TOX SCREEN WITH RELEX TO [...] above: <10 ng/ml CUTOFF Testing performed at [place], [place] [address] Cannabinoids Screen Ql (U) Negative NEGATIVE NG/ML [...] esterase Test strip Ql (U) Negative NEGATIVE [facility] Comment on above: Testing performed at [place] [address] Nitrite Ql (U) Negative NEGATIVE [facility] pH (U) 7.0 [pH] [facility] Protein Ql (U) Negative NEGATIVE mg/dl [facility] Specific gravity (U) [Rel density] 1.020 [facility] Urobilinogen (U) [Mass/Vol] 2.0 mg/dL High [facility] Heart R-R duration USO rdered By: Mady Amor on 02-07-2021 Mady Amor MD 02/07/2021 12:14 PM Non-stress Test Gestational age: 38w2d Indication: Rule out labor Baseline: 135 bpm 15x15s: present Variability: moderate Decelerations: absent Contractions: q1-2min Duration >20 minutes Comments: REACTIVE 02/07/21 Mady Amor MD [facility] Mady Amor MD - 02/07/2021 10:20 AM EDT Non-stress Test Gestational age: 38w2d Indication: Rule out labor Baseline: 135 bpm 15x15s: present Variability: moderate Decelerations: absent Contractions: q1-2min Duration >20 minutes Comments: REACTIVE 02/07/21 Mady Amor MD [facility] NOVEL CORONAVIRUSon 02-08-20 21 NARRATIVE This test was perfor med using isothermal JIMMY and has been approved as Emergency Use Authorization (EUA) for the qualitative detection [id number] nucleic acid. Normal [facility] Comment on above: Result Comment: Test ing performed at [place] [address] Performed By: #### C OVID #### [place] [address] SARS-CoV-2 (COVID-19) RNA JIMMY+probe Ql (Unsp spec) Not detected Normal NOT DETECTED [facility] Comment on above: Result Comment: Nega [...] #### C OVID #### [place] [address] RAPID TOX SCREEN,URINE WITH REFLEXon 02-07-2021 AMPHETAMINE Negative Normal NEGATIVE [facility] Comment on above: Result Comment: <500 ng/ml CUTOFF Performed By: #### R TOXR, UMAC, UMIC #### [place] [address] BARBITURATES Negative Normal NEGATIVE [facility] Comment on above: Result Comment: <200 ng/ml CUTOFF Performed By: #### R TOXR, UMAC, UMIC #### [place] [address] BENZODIAZEPINES Negative Normal NEGATIVE [facility] Comment on above: Result Comment: <150 ng/ml CUTOFF Performed By: #### R TOXR, UMAC, UMIC #### [place] [address] BUPRENORPHINE Negative Normal NEGATIVE [facility] Comment on above: Result Comment: <10 ng/ml CUTOFF Testing performed at [place] [address] Performed By: #### R TOXR, UMAC, UMIC #### [place] [address] CANNABINOIDS Negative Normal NEGATIVE [facility] Comment on above: Result Comment: <50 ng/ml CUTOFF Performed By: #### R TOXR, UMAC, UMIC #### [place] [address] COCAINE Negative Normal NEGATIVE [facility] Comment on above: Result Comment: <150 ng/ml CUTOFF Performed By: #### R TOXR, UMAC, UMIC #### [place] [address] METHADONE Negative Normal NEGATIVE [facility] Comment on above: Result Comment: <200 ng/ml CUTOFF Performed By: #### R TOXR, UMAC, UMIC #### Testing performed at [address] [place] [address] METHAMPHETAMINE Negative Normal NEGATIVE [facility] Comment on above: Result Comment: <500 ng/ml CUTOFF Performed By: #### R TOXR, UMAC, UMIC #### [place] [address] OPIATES Negative Normal NEGATIVE [facility] Comment on above: Result Comment: <100 ng/ml CUTOFF Performed By: #### R TOXR, UMAC, UMIC #### [place] [address] OXYCODONE Negative Normal NEGATIVE [facility] Comment on above: Result Comment: <100 ng/ml CUTOFF Performed By: #### R TOXR, UMAC, UMIC #### [place] [address] PHENCYCLIDINE Negative Normal NEGATIVE [facility] Comment on above: Result Comment: <25 ng/ml CUTOFF Performed By: #### R TOXR, UMAC, UMIC #### [place] [address] PROPOXYPHENE Negative Normal NEGATIVE [facility] Comment on above: Result Comment: <300 ng/ml CUTOFF Performed By: #### R TOXR, UMAC, UMIC #### [place] [address] TRICYCLIC ANTIDEPRESSANTS Negative Normal NEGATIVE [facility] Comment on above: Result Comment: <300 ng/ml CUTOFF Performed By: #### R TOXR, UMAC, UMIC #### [place] [address] URINE MACROSCOPICon 02-08-20 21 Bilirubin Ql (U) Negative Normal NEGATIVE [facility] Comment on above: Performed By: #### R TOXR, UMAC, UMIC #### [place] [address] Clarity (U) CLEAR Normal CLEAR [facility] Comment on above: Performed By: #### R TOXR, UMAC, UMIC #### [place] [address] Color (U) YELLOW Normal YELLOW [facility] Comment on above: Performed By: #### R TOXR, UMAC, UMIC #### [place] [address] Glucose Ql (U) Negative Normal NEGATIVE [facility] Comment on above: Performed By: #### R TOXR, UMAC, UMIC #### [place] [address] pH (U) 7.0 [pH] Normal 5.0-7.0 [facility] Comment on above: Performed By: #### R TOXR, UMAC, UMIC #### [place] [address] URINE HEMOGLOBIN Negative Normal NEGATIVE [facility] Comment on above: Performed By: #### R TOXR, UMAC, UMIC #### [place] [address] URINE KETONE Negative Normal NEGATIVE [facility] Comment on above: Performed By: #### R TOXR, UMAC, UMIC #### [place] [address] URINE LEUKOTEST SMALL Abnormal NEGATIVE [facility] Comment on above: Result Comment: Test ing performed at [place] [address] Performed By: #### R TOXR, UMAC, UMIC #### [place] [address] URINE NITRATES Negative Normal NEGATIVE [facility] Comment on above: Performed By: #### R TOXR, UMAC, UMIC #### [place] [address] URINE SPEC GRAVITY 1.010 Normal 1.010-1.025 [facility] Comment on above: Performed By: #### R TOXR, UMAC, UMIC #### [place] [address] URINE TOTAL PROTEIN Negative Normal NEGATIVE [facility] Comment on above: Performed By: #### R TOXR, UMAC, UMIC #### [place] [address] Urobilinogen Qn (U) 0.2 {Ita'U}/dL Normal 0.2-1.0 [facility] Comment on above: Performed By: #### R TOXR, UMAC, UMIC #### [place] [address] URINE MICROSCOPICon 02-08-20 21 BACTERIA TRACE Abnormal NEGATIVE [facility] Comment on above: Performed By: #### R TOXR, UMAC, UMIC #### [place] [address] CASTS NONE Normal NONE [facility] Comment on above: Performed By: #### R TOXR, UMAC, UMIC #### [place] [address] CRYSTAL NONE Normal NONE [facility] Comment on above: Performed By: #### R TOXR, UMAC, UMIC #### [place] [address] Epithelial cells LM Ql (Urine sed) 1 TO 5 Normal [facility] Comment on above: Performed By: #### R TOXR, UMAC, UMIC #### [place] [address] Mucus Ql (Urine sed) 1+ Abnormal NEGATIVE [facility] Comment on above: Performed By: #### R TOXR, UMAC, UMIC #### [place] [address] URINE COMMENT CULTURE CRITERIA NOT MET, NO CULTURE PERFORMED. Normal [facility] Comment on above: Result Comment: Test ing performed at [place] [address] Performed By: #### R TOXR, UMAC, UMIC #### Testing performed at [facility] [address] [place] [address] URINE RBC'S Negative Normal NEGATIVE [facility] Comment on above: Performed By: #### R TOXR UMCLAUDIO, UMIC #### Testing performed at [facility] [address] [place] [address] URINE WBC'S 1 TO 5 Normal NEGATIVE [facility] Comment on above: Performed By: #### R TOXR, TAMANNA, CHAMP #### Testing performed at [facility] [address] [place] [address] NOVEL CORONAVIRUS LAB 1 - NA SOPHARYNGEALOrdered By: Nehal Flower on 02-06-2021 NARRATIVE -1 This test was perfor med using isothermal JIMMY and has been approved as Emergency Use Authorization (EUA) for the qualitative detection biFMEX-UlF-7 nucleic acid. [facility] Comment on above: Testing performed at [place] [address] SARS-CoV-2 (COVID-19) RNA JIMMY+probe Ql (Unsp spec) Not detected NOT DETECTED [facility] Comment on above: Negative [...] patient is critically ill or clinically deteriorating. [facility] No Panel InformationOrdered By: Nehal Flower on 02-06-2021 Interpretation and review of laboratory results Abnormal [facility] RAPID TOX SCREEN WITH RELEX TO DRUGMCOrdered By: Nehal Flower on 02-06-2021 Amphetamine (U) [Mass/Vol] Negative NEGATIVE NG/ML [facility] Comment on above: <500 ng/ml CUTOFF Barbiturates Screen Ql (U) Negative NEGATIVE NG/ML [facility] Comment on above: <200 ng/ml CUTOFF Benzodiazepines Ql (U) Negative NEGAT DUNIA NG/ML [facility] Comment on above: <150 ng/ml CUTOFF Benzoylecgonine Ql (U) Negative NEGAT DUNIA NG/ML [facility] Comment on above: <150 ng/ml CUTOFF Buprenorphine Ql (U) Negative NEGATIV E NG/ML [facility] Comment on above: <10 ng/ml CUTOFF Testing performed at [place] [address] Cannabinoids Screen Ql (U) Negative NEGATIVE NG/ML [...] Test strip Ql (U) SMALL Abnormal NEGATIVE [facility] Comment on above: Testing performed at [place] [id number] Nitrite Ql (U) Negative NEGATIVE [facility] pH (U) 7.0 [pH] [facility] Protein Ql (U) Negative NEGATIVE mg/dl [facility] Specific gravity (U) [Rel density] 1.010 [facility] Urobilinogen (U) [Mass/Vol] 0.2 mg/dL [facility] URINE MICROSCOPICOrdered By: Nehal Flower on 02-06-2021 Bacteria LM.HPF (Urine sed) [#/Area] TRACE Abnormal NEGATIVE [facility] Casts LM.LPF (Urine sed) [#/Area] NONE NONE /LPF [facility] Crystals LM Nom (Urine sed) NONE NONE [facility] Epithelial cells LM Ql (Urine sed) 1 TO 5 /HPF [facility] Mucus Ql (Urine sed) 1+ Abnormal NEGATIVE [facility] RBC LM.HPF (Urine sed) [#/Area] Negative NEGATIVE /HPF [facility] Urine sediment comments LM Linus (Urine sed) CULTURE CRITERIA NOT MET, NO CULTURE PERFORMED. [facility] Comment on above: Testing performed at [place], [place] [address] WBC LM.HPF (Urine sed) [#/Area] 1 TO 5 NEGATIVE /HPF [facility] STREP SCREEN GRP Bon 021 STREP SCREEN GRP B SPECIMEN DESCRIPTION VAGINAL/RECTAL CULTURE STREPTOCOCCUS AGALACTIAE SERO GROUP B * Result Note: THIS STREPTOCOCCI IS PRESUMED TO BE RESISTANT TO CLINDAMYCIN BASED ON THE DETECTION OF INDUCIBLE CLINDAMYCIN RESISTANCE. CLINDAMYCIN MAY STILL BE EFFECTIVE IN SOME PATIENTS. * * Result Note: Testing performed at [place], [place] [address] * REPORT STATUS 01/29/2021 * Result Note: FINAL * ORGANISM STREPTOCOCCUS AGALACTIAE SERO GROUP B * Result Note: STREPTOCOCCUS AGALACTIAE SERO GROUP B * METHOD JESI AMPICILLIN <=0.25 SUSCEPTIBLE CLINDAMYCIN RESISTANT ERYTHROMYCIN >=8 RESISTANT PENICILLIN G <=0.06 SUSCEPTIBLE TETRACYCLINE >=16 RESISTANT VANCOMYCIN 0.5 SUSCEPTIBLE LEVOFLOXACIN 1 SUSCEPTIBLE CEFOTAXIME <=0.12 SUSCEPTIBLE CEFTRIAXONE <=0.12 SUSCEPTIBLE INDUCIBLE CLINDAMYCIN RESISTANCE POSITIVE Normal [facility] Comment on above: Performed By: #### O BSC #### [place] [address] RPRon 11-29-2020 Reagin Ab RPR Ql (S) Non-Reactive Normal NONREACTIVE [facility] Comment on above: Result Comment: Test ing performed at [place] [address] Performed By: #### R TOXR, UMAC, UMIC #### [place] [address] CBCon 11-28-2020 ABSOLUTE BAS 0.0 10*3/uL Normal 0.0-0.2 [facility] Comment on above: Result Comment: Test ing performed at [place] [address] Performed By: #### R TOXR, UMAC, UMIC #### [place] [address] ABSOLUTE EOS 0.10 10*3/uL Normal 0.0-0.7 [facility] Comment on above: Performed By: #### R TOXR, UMAC, UMIC #### [place] [address] ABSOLUTE NEUTROPHIL COUNT 6.4 10*3/uL Normal 1.4-6.5 [facility] Comment on above: Performed By: #### R TOXR, UMAC, UMIC #### [place] [address] Basophils/100 WBC (Bld) 0.4 % Normal 0.0-2.0 [facility] Comment on above: Performed By: #### R TOXR, UMAC, UMIC #### [place] [address] DTYPE AUTO DIFF Normal [facility] Comment on above: Performed By: #### R TOXR, UMAC, UMIC #### [place] [address] Eosinophils/100 WBC (Bld) 0.9 % Normal 0.0-11.0 [facility] Comment on above: Performed By: #### R TOXR, UMAC, UMIC #### Testing performed at [address] [address] Lymphocytes (Bld) [#/Vol] 1.40 10*3/uL Normal 1.2-3.4 [facility] Comment on above: Performed By: #### R TOXR, UMAC, UMIC #### Testing performed at [address] [address] Lymphocytes/100 WBC (Bld) 16.8 % Low 20.0-55.0 [facility] Comment on above: Performed By: #### R TOXR, UMAC, UMIC #### Testing performed at [address] [address] Monocytes (Bld) [#/Vol] 0.4 10*3/uL Normal 0.0-0.7 [facility] Comment on above: Performed By: #### R TOXR, UMAC, UMIC #### Testing performed at [address] [address] Monocytes/100 WBC (Bld) 4.5 % Normal 0.0-10.0 [facility] Comment on above: Performed By: #### R TOXR, UMAC, UMIC #### Testing performed at [address] [address] Neutrophils/100 WBC (Bld) 77.4 % High 37.0-75.0 [facility] Comment on above: Performed By: #### R TOXR, UMAC, UMIC #### Testing performed at [address] [address] Erythrocyte distribution width (RBC) [Ratio] 14.0 % Normal 11.5-14.5 [facility] Comment on above: Performed By: #### R TOXR, UMAC, UMIC #### Testing performed at [address] [address] Hematocrit (Bld) [Volume fraction] 34.8 % Low 36.0-48.0 [facility] Comment on above: Performed By: #### R TOXR, UMAC, UMIC #### Testing performed at [address] [address] Hemoglobin (Bld) [Mass/Vol] 11.7 g/dL Low 12.0-16.0 [facility] Comment on above: Performed By: #### R TOXR, UMAC, UMIC #### Testing performed at [address] [address] MCH (RBC) [Entitic mass] 30.1 pg Normal 26.0-35.0 [facility] Comment on above: Performed By: #### R TOXR, UMAC, UMIC #### Testing performed at [address] [address] MCHC (RBC) [Mass/Vol] 33.6 g/dL Normal 27.0-37.0 [facility] Comment on above: Performed By: #### R TOXR, UMAC, UMIC #### Testing performed at [address] [address] MCV (RBC) [Entitic vol] 89.3 fL Normal 80.0-100.0 [facility] Comment on above: Performed By: #### R TOXR, UMAC, UMIC #### Testing performed at [address] [address] Platelet mean volume (Bld) [Entitic vol] 9.2 fL Normal 7.4-11.0 [facility] Comment on above: Performed By: #### R TOXR, UMAC, UMIC #### Testing performed at [address] [address] Platelets (Bld) [#/Vol] 169 10*3/uL Normal 130.0-400.0 [facility] Comment on above: Performed By: #### R TOXR, UMAC, UMIC #### Testing performed at [address] [address] RBC (Bld) [#/Vol] 3.89 10*6/uL Low 4.0-5.4 [facility] Comment on above: Performed By: #### R TOXR, UMAC, UMIC #### [place] [address] WBC (Bld) [#/Vol] 8.3 10*3/uL Normal 3.6-11.0 [facility] Comment on above: Performed By: #### R TOXR, UMAC, UMIC #### [place] [address] GLUCOSE POST LOADINGon 11-28 GLUCOSE POST LOADING 126 MG/DL Normal 65-140 [facility] Comment on above: Result Comment: Test ing performed at [place] [address] Performed By: #### R TOXR, UMAC, UMIC #### [place] [address] Glucose 1 Hr post 50 g glucose PO [Mass/Vol] 126 mg/dL [facility] Comment on above: Testing performed at [address] CBCon 11-25-2020 ABSOLUTE BAS 0.0 10*3/uL Normal 0.0-0.2 [facility] Comment on above: Result Comment: Test ing performed at [place] [address] Performed By: #### R TOXR, UMAC, UMIC #### [place] [address] ABSOLUTE EOS 0.10 10*3/uL Normal 0.0-0.7 [facility] Comment on above: Performed By: #### R TOXR, UMAC, UMIC #### [place] [address] ABSOLUTE NEUTROPHIL COUNT 7.7 10*3/uL High 1.4-6.5 [facility] Comment on above: Performed By: #### R TOXR, UMAC, UMIC #### [place] [address] Basophils/100 WBC (Bld) 0.4 % Normal 0.0-2.0 [facility] Comment on above: Performed By: #### R TOXR, UMAC, UMIC #### Testing performed at [address] [address] DTYPE AUTO DIFF Normal [facility] Comment on above: Performed By: #### R TOXR, UMAC, UMIC #### Testing performed at [address] [address] Eosinophils/100 WBC (Bld) 0.9 % Normal 0.0-11.0 [facility] Comment on above: Performed By: #### R TOXR, UMAC, UMIC #### Testing performed at [address] [address] Lymphocytes (Bld) [#/Vol] 2.20 10*3/uL Normal 1.2-3.4 [facility] Comment on above: Performed By: #### R TOXR, UMAC, UMIC #### Testing performed at [address] [address] Lymphocytes/100 WBC (Bld) 20.3 % Normal 20.0-55.0 [facility] Comment on above: Performed By: #### R TOXR, UMAC, UMIC #### Testing performed at [address] [address] Monocytes (Bld) [#/Vol] 0.7 10*3/uL Normal 0.0-0.7 [facility] Comment on above: Performed By: #### R TOXR, UMAC, UMIC #### Testing performed at [address] [address] Monocytes/100 WBC (Bld) 6.5 % Normal 0.0-10.0 [facility] Comment on above: Performed By: #### R TOXR, UMAC, UMIC #### Testing performed at [address] [address] Neutrophils/100 WBC (Bld) 71.9 % Normal 37.0-75.0 [facility] Comment on above: Performed By: #### R TOXR, UMAC, UMIC #### Testing performed at [place] [id number] Erythrocyte distribution width (RBC) [Ratio] 13.4 % Normal 11.5-14.5 [facility] Comment on above: Performed By: #### R TOXR, UMAC, UMIC #### [place] [address] Hematocrit (Bld) [Volume fraction] 34.4 % Low 36.0-48.0 [facility] Comment on above: Performed By: #### R TOXR, UMAC, UMIC #### [place] [address] Hemoglobin (Bld) [Mass/Vol] 11.9 g/dL Low 12.0-16.0 [facility] Comment on above: Performed By: #### R TOXR, UMAC, UMIC #### [place] [address] MCH (RBC) [Entitic mass] 30.2 pg Normal 26.0-35.0 [facility] Comment on above: Performed By: #### R TOXR, UMAC, UMIC #### [place] [address] MCHC (RBC) [Mass/Vol] 34.7 g/dL Normal 27.0-37.0 [facility] Comment on above: Performed By: #### R TOXR, UMAC, UMIC #### [place] [address] MCV (RBC) [Entitic vol] 87.1 fL Normal 80.0-100.0 [facility] Comment on above: Performed By: #### R TOXR, UMAC, UMIC #### [place] [address] Platelet mean volume (Bld) [Entitic vol] 9.3 fL Normal 7.4-11.0 [facility] Comment on above: Result Comment: Test ing performed at [place] [address] Performed By: #### R TOXR, UMAC, UMIC #### Testing performed at [address] [address] Platelets (Bld) [#/Vol] 176 10*3/uL Normal 130.0-400.0 [facility] Comment on above: Performed By: #### R TOXR, UMAC, UMIC #### Testing performed at [place] [id number] RBC (Bld) [#/Vol] 3.95 10*6/uL Low 4.0-5.4 [facility] Comment on above: Performed By: #### R TOXR, UMAC, UMIC #### Testing performed at [place] [id number] WBC (Bld) [#/Vol] 10.8 10*3/uL Normal 3.6-11.0 [facility] Comment on above: Performed By: #### R TOXR, UMAC, UMIC #### Testing performed at [place] [id number] CMP FASTINGon 11-25-2020 A:G RATIO 1.2 RATIO Low 1.3-2.2 [facility] Comment on above: Performed By: #### R TOXR, UMAC, UMIC #### [place] [address] ALBUMIN 3.4 G/dl Low 3.5-5.0 [facility] Comment on above: Performed By: #### R TOXR, UMAC, UMIC #### Testing performed at [place] [id number] ALP [Catalytic activity/Vol] 64 U/L Normal 38-126 [facility] Comment on above: Performed By: #### R TOXR, UMAC, UMIC #### Testing performed at [place] [id number] ALT [Catalytic activity/Vol] 30 U/L Normal <35 [facility] Comment on above: Performed By: #### R TOXR, UMAC, UMIC #### Testing performed at [place] [id number] AST [Catalytic activity/Vol] 35 U/L Normal 14-36 [facility] Comment on above: Performed By: #### R TOXR, UMAC, UMIC #### [place] [address] Bilirubin [Mass/Vol] 0.2 mg/dL Normal 0.2-1.3 [facility] Comment on above: Performed By: #### R TOXR, UMAC, UMIC #### [place] [address] Calcium [Mass/Vol] 9.0 mg/dL Normal 8.4-10.2 [facility] Comment on above: Performed By: #### R TOXR, UMAC, UMIC #### [place] [address] Chloride [Moles/Vol] 103 mmol/L Normal 98-107 [facility] Comment on above: Result Comment: Ellie nieves note: Triglyceride levels of 600mg/dL or higher may positively bias chloride results by approximately 2.1 mmol Performed By: #### R TOXR, UMAC, UMIC #### [place] [address] CO2 [Moles/Vol] 24 mmol/L Normal 22-30 [facility] Comment on above: Performed By: #### R TOXR, UMAC, UMIC #### [place] [address] Creatinine [Mass/Vol] 0.50 mg/dL Low 0.7-1.2 [facility] Comment on above: Performed By: #### R TOXR, UMAC, UMIC #### [place] [address] EST. GFR, >60 Normal [facility] Comment on above: Performed By: #### R TOXR, UMAC, UMIC #### [place] [address] EST. GFR,Non >60 Normal [facility] Comment on above: Performed By: #### R TOXR, UMAC, UMIC #### Testing performed at [place] [id number] GFR Information Average GFR for 20-2 9 years old = 116. 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 Kidney failure, GFR = <15. The GFR estimate is not adjusted for extreme body surface area or acute process, nor has it been validated for women or ethnic groups other than and . Testing performed at [place] [address] Performed By: #### R TOXR, UMAC, UMIC #### [place] [address] Glucose [Mass/Vol] 90 mg/dL Normal 70-100 [facility] Comment on above: Result Comment: NORMAL <100 mg/dL PREDIABETES 101-126 mg/dL DIABETES 126 mg/dL or higher Performed By: #### R TOXR, UMAC, UMIC #### Testing performed at [address] [address] Potassium [Moles/Vol] 3.2 mmol/L Low 3.5-5.1 [facility] Comment on above: Performed By: #### R TOXR, UMAC, UMIC #### Testing performed at [place] [id number] Protein [Mass/Vol] 6.2 g/dL Low 6.3-8.2 [facility] Comment on above: Performed By: #### R TOXR, UMAC, UMIC #### Testing performed at [place] [id number] Sodium [Moles/Vol] 131 mmol/L Low 137-145 [facility] Comment on above: Performed By: #### R TOXR, UMAC, UMIC #### Testing performed at [place] [id number] Urea nitrogen [Mass/Vol] 8 mg/dL Normal 7-20 [facility] Comment on above: Performed By: #### R TOXR, UMAC, UMIC #### Testing performed at [place] [id number] CT HEAD WITHOUT CONTRASTon 0 11-25-2020 CT [...] acute intracranial abnormality. 2. Minimal sinusitis. Normal [facility] URINE MACROSCOPICon 11-25-19 21 Bilirubin Ql (U) Negative Normal NEGATIVE [facility] Comment on above: Performed By: #### R TOXR UMCLAUDIO, UMIC #### [place] [address] Clarity (U) CLEAR Normal CLEAR [facility] Comment on above: Performed By: #### R TOXR UMAC, UMIC #### [place] [address] Color (U) YELLOW Normal YELLOW [facility] Comment on above: Performed By: #### R TOXR, UMAC, UMIC #### Testing performed at [address] [address] Glucose Ql (U) Negative Normal NEGATIVE [facility] Comment on above: Performed By: #### R TOXR, UMAC, UMIC #### Testing performed at [place] [id number] pH (U) 7.0 [pH] Normal 5.0-7.0 [facility] Comment on above: Performed By: #### R TOXR, UMAC, UMIC #### [place] [address] URINE HEMOGLOBIN Negative Normal NEGATIVE [facility] Comment on above: Performed By: #### R TOXR, UMAC, UMIC #### [place] [address] URINE KETONE Negative Normal NEGATIVE [facility] Comment on above: Performed By: #### R TOXR, UMAC, UMIC #### [place] [address] URINE LEUKOTEST SMALL Abnormal NEGATIVE [facility] Comment on above: Result Comment: Test ing performed at [place] [address] Performed By: #### R TOXR, UMAC, UMIC #### [place] [address] URINE NITRATES Negative Normal NEGATIVE [facility] Comment on above: Performed By: #### R TOXR, UMAC, UMIC #### [place] [address] URINE SPEC GRAVITY 1.015 Normal 1.010-1.025 [facility] Comment on above: Performed By: #### R TOXR, UMAC, UMIC #### [place] [address] URINE TOTAL PROTEIN Negative Normal NEGATIVE [facility] Comment on above: Performed By: #### R TOXR, UMAC, UMIC #### [place] [address] Urobilinogen Qn (U) 0.2 {Ita'U}/dL Normal 0.2-1.0 [facility] Comment on above: Performed By: #### R TOXR, UMAC, UMIC #### [place] [address] URINE MICROSCOPICon 11-25-19 21 Bacteria LM.HPF (Urine sed) [#/Area] Negative Normal NEGATIVE [facility] Comment on above: Performed By: #### R TOXR, UMAC, UMIC #### Testing performed at [place] [id number] CASTS NONE Normal NONE [facility] Comment on above: Performed By: #### R TOXR, UMAC, UMIC #### Testing performed at [place] [id number] CRYSTAL NONE Normal NONE [facility] Comment on above: Performed By: #### R TOXR, UMAC, UMIC #### [place] [address] Epithelial cells LM Ql (Urine sed) 1 TO 5 Normal [facility] Comment on above: Performed By: #### R TOXR, UMAC, UMIC #### [place] [address] Mucus Ql (Urine sed) Negative Normal NEGATIVE [facility] Comment on above: Performed By: #### R TOXR, UMAC, UMIC #### [place] [address] URINE COMMENT REFLEX CULTURE PER ESTABLISHED CRITERIA. Normal [facility] Comment on above: Result Comment: Test ing performed at [place] [address] Performed By: #### R TOXR, UMAC, UMIC #### [place] [address] URINE RBC'S Negative Normal NEGATIVE [facility] Comment on above: Performed By: #### R TOXR, UMAC, UMIC #### [place] [address] URINE WBC'S 1 TO 5 Normal NEGATIVE [facility] Comment on above: Performed By: #### R TOXR, UMAC, UMIC #### [place] [address] CBC, EDIF, PLATELETon 2020 ABSOLUTE BASOPHIL COUNT 0.0 10*3/uL 0.0 - 0.2 10*3/uL [facility] Comment on above: Testing performed at [place] [address] Basophils/100 WBC (Bld) 0.4 % 0.0 - 2.0 % [facility] Differential cell count method Nom (Bld) AUTO DIFF % [facility] Eosinophils (Bld) [#/Vol] 0.10 10*3/uL 0.0 - 0.7 10*3/uL [facility] Eosinophils/100 WBC (Bld) 0.9 % 0.0 - 11.0 % [facility] Erythrocyte distribution width (RBC) [Ratio] 13.4 % 11.5 - 14.5 % [facility] Hematocrit (Bld) [Volume fraction] 34.4 % Low 36.0 - 48.0 % [facility] Hemoglobin (Bld) [Mass/Vol] 11.9 g/dL Low [facility] Interpretation and review of laboratory results Abnormal [facility] Lymphocytes (Bld) [#/Vol] 2.20 10*3/uL 1.2 - 3.4 10*3/uL [facility] Lymphocytes/100 WBC (Bld) 20.3 % 20.0 - 55.0 % [facility] MCH (RBC) [Entitic mass] 30.2 pg 26.0 - 35.0 PG [facility] MCHC (RBC) [Mass/Vol] 34.7 g/dL [facility] MCV (RBC) [Entitic vol] 87.1 fL [facility] Monocytes (Bld) [#/Vol] 0.7 10*3/uL 0.0 - 0.7 10*3/uL [facility] Monocytes/100 WBC (Bld) 6.5 % 0.0 - 10.0 % [facility] Neutrophils (Bld) [#/Vol] 7.7 10*3/uL High 1.4 - 6.5 10*3/uL [facility] Neutrophils/100 WBC (Bld) 71.9 % 37.0 - 75.0 % [facility] Platelet mean volume (Bld) [Entitic vol] 9.3 fL [facility] Platelets (Bld) [#/Vol] 176 10*3/uL 130. 0 - 400.0 10*3/uL [facility] RBC (Bld) [#/Vol] 3.95 10*6/uL Low 4.0 - 5.4 10*6/uL [facility] WBC (Bld) [#/Vol] 10.8 10*3/uL 3.6 - 11.0 10*3/uL [facility] COMPREHENSIVE METABOLIC PANE Charles 11-24-2020 Albumin [Mass/Vol] 3.4 G/dl Low 3.5 - 5.0 G/dl [facility] Albumin/Globulin [Mass ratio] 1.2 {ratio} Low [facility] ALP [Catalytic activity/Vol] 64 U/L [facility] ALT [Catalytic activity/Vol] 30 U/L <35 IU/L [facility] AST [Catalytic activity/Vol] 35 U/L [facility] Bilirubin [Mass/Vol] 0.2 mg/dL [facility] Calcium [Mass/Vol] 9.0 mg/dL [facility] Chloride [Moles/Vol] 103 mmol/L [facility] Comment on above: Please note: Triglyc eride levels of 600mg/dL or higher may positively bias chloride results by approximately 2.1 mmol CO2 [Moles/Vol] 24 mmol/L [facility] Creatinine [Mass/Vol] 0.50 mg/dL Low [facility] GFR/1.73 sq M predicted among blacks MDRD (S/P/Bld) [Vol rate/Area] mL/min/{1.73_m2} ml/min/1.73sq .m [facility] GFR/1.73 sq M predicted among non-blacks MDRD (S/P/Bld) [Vol rate/Area] mL/min/{1.73_m2} ml/min/1.73sq .m [facility] GFR/1.73 sq M predicted among non-blacks MDRD (S/P/Bld) [Vol rate/Area] Average GFR for 20-29 years old = 116. [facility] Comment on above: Chronic Kidney disea se, GFR = <60. Kidney failure, GFR = <15. The GFR estimate is not adjusted for extreme body surface area or acute process, nor has it been validated for women or ethnic groups other than and . Testing performed at [place], [place] [address] Glucose post fast [Mass/Vol] 90 mg/dL [facility] Comment on above: NORMAL <100 mg/dL PREDIABETES 101-126 mg/dL DIABETES 126 mg/dL or higher Interpretation and review of laboratory results Abnormal [facility] Potassium [Moles/Vol] 3.2 mmol/L Low [employer] Protein [Mass/Vol] 6.2 g/dL Low [facility] Sodium [Moles/Vol] 131 mmol/L Low [facility] Urea nitrogen [Mass/Vol] 8 mg/dL [facility] CT HEAD WITHOUT CONTRASTon 0 11-24-2020 IMPRESSION: 1. No [place] intracranial abnormality. 2. Minimal sinusitis. [facility] System User, Interfaces - 11/24/2020 11:10 PM [...] No acute intracranial abnormality. 2. Minimal sinusitis. [facility] CT BRAIN WITHOUT CONTRAST HISTORY: Headache, [...] AND CALVARIUM: Normal. EXTRACRANIAL SOFT TISSUES: Normal. [employer] GLUCOSE (POC DEVICE)on 11-24 Glucose [Mass/Vol] 105 mg/dL High [facility] Interpretation and review of laboratory results Abnormal [employer] Operator [id number] [facility] Otheron 11-24-2020 [facility] POCT GLUCOSEon 11-24-2020 Glucose [Mass/Vol] 105 mg/dL High 70-100 [facility] TOP COLLAR MAKER [id number] Normal [facility] URINALYSIS, MACROon 11-24-19 21 Bilirubin Ql (U) Negative NEGATIVE [facility] Clarity (U) CLEAR CLEAR [facility] Color (U) YELLOW YELLOW [facility] Glucose Test strip (U) [Mass/Vol] Negative NEGATIVE mg/dl [facility] Hemoglobin Ql (U) Negative NEGATIVE [facility] Interpretation and review of laboratory results Abnormal [facility] Ketones (U) [Mass/Vol] Negative NEGAT DUNIA mg/dl [facility] Leukocyte esterase Test strip Ql (U) SMALL Abnormal NEGATIVE [facility] Comment on above: Testing performed at [place] [address] Nitrite Ql (U) Negative NEGATIVE [facility] pH (U) 7.0 [pH] [facility] Protein Ql (U) Negative NEGATIVE mg/dl [facility] Specific gravity (U) [Rel density] 1.015 [facility] Urobilinogen (U) [Mass/Vol] 0.2 [facility] URINE CULTUREon 11-24-2020 Bacteria identified Cx Nom (U) SPECIMEN DESCRIPTION RANDOM URINE UA DIPSTICK NITRITE NEGATIVE * Result Note: LEUKOCYTE POSITIVE * CULTURE NO GROWTH 2 DAYS * Result Note: Testing performed at [place] [address] * REPORT STATUS 11/26/2020 * Result Note: FINAL * Normal [facility] Comment on above: Performed By: #### R TOXR, UMAC, UMIC #### Testing performed at [address] [address] URINE MICROSCOPICon 11-24-19 21 Bacteria LM.HPF (Urine sed) [#/Area] Negative NEGATIVE [facility] Casts LM.LPF (Urine sed) [#/Area] NONE NONE /LPF [facility] Crystals LM Nom (Urine sed) NONE NONE [facility] Epithelial cells LM Ql (Urine sed) 1 TO 5 /HPF [facility] Mucus Ql (Urine sed) Negative NEGATIVE [facility] RBC LM.HPF (Urine sed) [#/Area] Negative NEGATIVE /HPF [facility] Urine sediment comments LM Linus (Urine sed) REFLEX CULTURE PER ESTABLISHED CRITERIA. [facility] Comment on above: Testing performed at [place] [address] WBC LM.HPF (Urine sed) [#/Area] 1 TO 5 NEGATIVE /HPF [facility] US OB ANATOMYon 10-24-2020 : 1. Single live IUP in Breech position. 2. Normal Anatomy seen. 3. PRANAY by US - 02/18/2021, which is consistent with gestational age. [facility] 20 WEEK OB ULTRASOUN [...] previa noted. Normal fluid amount noted. FINAL [facility] NOVEL CORONAVIRUSon 09-02-20 20 NARRATIVE This test was perfor med using isothermal JIMMY and has been approved as Emergency Use Authorization (EUA) for the qualitative detection [id number] nucleic acid. Normal [facility] Comment on above: Result Comment: Test ing performed at [place] [address] Performed By: #### R TOXR, UMAC, UMIC #### Testing performed at [facility] [address] [place] [address] SARS-CoV-2 (COVID-19) RNA JIMMY+probe Ql (Unsp spec) Not detected Normal NOT DETECTED [facility] Comment on above: Result Comment: Nega [...] TOXR, UMAC, UMIC #### [place] [address] US OB DATING ABDOMINAL < 14W EEKSon 06-30-2020 : 1. Single live of 6 weeks and 4 days. 2. heart rate of 122 bpm. 3.US PRANAY 02/19/2021, which is inconsistent with PRANAY by LMP and should be changed. [facility] REFERRING PHYSICIAN: Dr. Madera TECHNOLOGIST: Dorina Felipe PROCEDURE DATE : 06/30/2020 INDICATIONS: Early gestational, dating LMP 04/15/2020, PRANAY 01/20/2021 PROCEDURE DETAILS A single live was noted within the uterus. heart rate of 122 bpm. The CRL measures .65 cm , 6 weeks 4 days. FINAL [employer] ABO/RH(D) TYPINGon 0 ABO and Rh group Nom (Bld ) Testing performed at [address] ABO and Rh group Nom (Bld ) Positive [employer] ANTIBODY SCREENon 06-24-2020 Blood group antibody screen Ql Negative [employer] EXPIRATION DATE 06/27/2020,2359 [employer] EXPIRATION DATE Testing performed at [address] CBC, EDIF, PLATELETon 2019 ABSOLUTE BASOPHIL COUNT 0.0 10*3/uL 0 - 0.2 10*3/uL [facility] Comment on above: Testing performed at [place] [address] Basophils/100 WBC (Bld) 0.5 % 0 - 2 % [employer] Differential cell count method Nom (Bld) AUTO DIFF % [employer] Eosinophils (Bld) [#/Vol] 0.20 10*3/uL 0 - 0.7 10*3/uL [employer] Eosinophils/100 WBC (Bld) 2.9 % 0 - 11 % [employer] Erythrocyte distribution width (RBC) [Ratio] 12.6 % 11.5 - 14.5 % [employer] Hematocrit (Bld) [Volume fraction] 42.0 % 36 - 48 % [facility] Hemoglobin (Bld) [Mass/Vol] 14.1 g/dL [facility] Lymphocytes (Bld) [#/Vol] 1.60 10*3/uL 1.2 - 3.4 10*3/uL [facility] Lymphocytes/100 WBC (Bld) 22.8 % 20 - 55 % [facility] MCH (RBC) [Entitic mass] 28.8 pg 26 - 35 PG [facility] MCHC (RBC) [Mass/Vol] 33.5 g/dL [facility] MCV (RBC) [Entitic vol] 85.9 fL A [facility] Monocytes (Bld) [#/Vol] 0.4 10*3/uL 0 - 0.7 10*3/uL [facility] Monocytes/100 WBC (Bld) 5.6 % 0 - 10 % A [facility] Neutrophils (Bld) [#/Vol] 4.8 10*3/uL 1.4 - 6.5 10*3/uL [facility] Neutrophils/100 WBC (Bld) 68.2 % 37 - 75 % [facility] Platelet mean volume (Bld) [Entitic vol] 8.9 fL [facility] Platelets (Bld) [#/Vol] 229 10*3/uL 130 - 400 10*3/uL [facility] RBC (Bld) [#/Vol] 4.88 10*6/uL 4 - 5.4 10*6/uL [facility] WBC (Bld) [#/Vol] 7.1 10*3/uL 3.6 - 11 10*3/uL [facility] TOXICOLOGY DRUG SCREEN, URIN Jonh 06-24-2020 Amphetamine (U) [Mass/Vol] Negative NEGATIVE NG/ML [facility] Comment on above: <500 ng/ml CUTOFF Barbiturates Screen Ql (U) Negative NEGATIVE NG/ML [facility] Comment on above: <200 ng/ml CUTOFF Benzodiazepines Ql (U) Negative NEGAT DUNIA NG/ML [facility] Comment on above: <150 ng/ml CUTOFF Benzoylecgonine Ql (U) Negative NEGAT DUNIA NG/ML [facility] Comment on above: <150 ng/ml CUTOFF Buprenorphine Ql (U) Negative NEGATIV E NG/ML [facility] Comment on above: <10 ng/ml CUTOFF Testing performed at [place] [address] Cannabinoids Screen Ql (U) Negative NEGATIVE NG/ML [employer] [facility] Comment on above: <50 ng/ml CUTOFF Methadone Screen Ql (U) Negative NEGA TIVE NG/ML [employer] [facility] Comment on above: <200 ng/ml CUTOFF Methamphetamine (U) [Mass/Vol] Negative NEGATIVE NG/ML [employer] [facility] Comment on above: <500 ng/ml CUTOFF Opiates Screen Ql (U) Negative NEGATI VE NG/ML [employer] [facility] Comment on above: <100 ng/ml CUTOFF Oxycodone Ql (U) Negative NEGATIVE NG/ML [employer] [facility] Comment on above: <100 ng/ml CUTOFF Phencyclidine Screen method >25 ng/mL Ql (U) Negative NEGATIVE NG/ML [employer] [facility] Comment on above: <25 ng/ml CUTOFF Propoxyphene + Norpropoxyphene Screen Ql (U) Negative NEGATIVE NG/ML [employer] [facility] Comment on above: <300 ng/ml CUTOFF Tricyclic antidepressants Screen Ql (U) Negative NEGATIVE NG/ML [employer] [facility] Comment on above: <300 ng/ml CUTOFF POCT URINE PREGNANCYon 06-14 HCG.beta subunit Qn Positive [employer] [facility] Interpretation and review of laboratory results Normal [employer] [facility] HCG QUALITATIVE, URINEon HCG ( test) Ql (U) Negative [employer] Comment on above: Testing performed at [place] [address] NOVEL CORONAVIRUS LAB 1 - NA SOPHARYNGEALon 04-28-2020 NARRATIVE -1 This test was perfor med using real time PCR and has been approved as Emergency Use Authorization (EUA) for the qualitative detection of SARS-CoV-2 nucleic acid. [employer] Comment on above: Testing performed at [place] [address] SARS COV 2 RNA, QL REAL TIME RT PCR NOT DETECTED NOT DETECTED [employer] Comment on above: Negative results do not [...] ABS, IGG 256.0 AU/mL Normal Immune >10.9 [facility] Comment on above: Result Comment: (NOT E) Negative <9.0 Equivocal 9.0 - 10.9 Positive >10.9 A positive result generally indicates past exposure to Mumps virus or previous vaccination. PERFORMED AT [facility] Performed By: #### L MMR #### [place] [address] RUBEOLA AB, IGG >300.0 Normal Immune >16.4 [facility] Comment on above: Result Comment: (NOT E) Negative <13.5 Equivocal 13.5 - 16.4 Positive >16.4 Presence of antibodies to Rubeola is presumptive evidence of immunity except when acute infection is suspected. Performed By: #### L MMR #### [place] [address] RUBELLA AB, IGG 5.50 index Normal Immune >0.99 [facility] Comment on above: Result Comment: (NOT E) Non-immune <0.90 Equivocal 0.90 - 0.99 Immune >0.99 Performed By: #### L MMR #### [place] [address] FAX REQUESTon 09-09-2019 FAX TO [facility] Comment on above: Performed By: #### L MMR #### [place] [address] HEP B SURFACE ABon 9 HEP B SURFACE AB Negative Abnormal POSITIVE [facility] Comment on above: Result Comment: Clinical Interpretation of Immune Status Negative: patient is considered to be not immune to infection with HBV Intermediate: unable to determine if anti-HBs is present at levels consistent with immunity Positive: anti-HBs detected, patient is considered to be immune to infection with HBV Performed By: #### L MMR #### Testing performed at [facility] [place] [address] [place] [address] [place] [address] HEP C ABon 09-09-2019 HEP C AB Negative Normal NEGATIVE [facility] Comment on above: Performed By: #### L MMR #### Testing performed at [facility] [address] [place] [address] [place] [address] O & P Exam, Routineon 2018 Ova/Para Exam Rt Final report Normal [facility] Comment on above: Order Comment: Order Added by Discern Expert. Result Comment: Thes e results were obtained using wet preparation(s) and trichrome stained smear. This test does not include testing for Cryptosporidium parvum, Cyclospora, or Microsporidia. No ova, cysts, or parasites seen. One negative specimen does not rule out the possibility of a parasitic infection. Performed At: [facility] [address] [place], [place] [id number] Corby Caballero PhD Ph:[phone] Performed By: #### 2 [id number] #### TAMARA RemHemo [address] [place] [address] CHARLES Teston 12-22-2018 CHARLES Test Negative Normal Negative [facility] Comment on above: Result Comment: spec imen found in surgery [facility] 12/22/2018 14:07:47 EDT; never brought to lab Performed By: #### 2 [id number] #### TAMARA RemHemo [address] [place] [address] GI Panelon 12-19-2018 Adenovirus F40/41 Not Detected Normal [facility] Comment on above: Order Comment: Order Added by Discern Expert. Performed By: #### 2 [id number] #### TAMARA RemHemo [address] [place] [address] Astrovirus Not Detected Normal [facility] Comment on above: Order Comment: Order Added by Discern Expert. Performed By: #### 2 [id number] #### TAMARA RemHemo [address] [place] [address] Campylobacter Not Detected Normal [facility] Comment on above: Order Comment: Order Added by Discern Expert. Performed By: #### 2 112611 #### TAMARA RemHemo [address] [place] [address] Cholesterol mass conc Not Detected Normal [facility] Comment on above: Order Comment: Order Added by Discern Expert. Performed By: #### 2 [id number] #### TAMARA RemHemo [address] [place] [address] Clostridium difficile toxin A/B Not Detected Normal [facility] Comment on above: Order Comment: Order Added by Discern Expert. Performed By: #### 2 [id number] #### TAMARA RemHemo [address] [place] [id number] Cryptosporidium Not Detected Normal [facility] Comment on above: Order Comment: Order Added by Discern Expert. Performed By: #### 2 [id number] #### TAMARA RemHemo [address] [place] [id number] Cyclospora cayetanensis Not Detected Normal [facility] Comment on above: Order Comment: Order Added by Discern Expert. Performed By: #### 2 [id number] #### TAMARA RemHemo [address] [place] [id number] E coli 0157 Not Detected Normal [facility] Comment on above: Order Comment: Order Added by Discern Expert. Performed By: #### 2 [id number] #### TAMARA RemHemo [address] [place] [id number] Entamoeba histolytica Not Detected Normal [facility] Comment on above: Order Comment: Order Added by Discern Expert. Performed By: #### 2 158541 #### TAMARA RemHemo [address] [place] [id number] Enteroaggregatvie E coli (EAEC) Not Detected Normal [facility] Comment on above: Order Comment: Order Added by Discern Expert. Performed By: #### 2 713188 #### TAMARA RemHemo [address] [place] [id number] Enteropathogenic E Coli (EPEC) Not Detected Normal [facility] Comment on above: Order Comment: Order Added by Discern Expert. Performed By: #### 2 [id number] #### TAMARA RemHemo [address] [place] [id number] Enterotoxigenci E coli (ETEC)lt/st Not Detected Normal [facility] Comment on above: Order Comment: Order Added by Discern Expert. Performed By: #### 2 [id number] #### TAMARA RemHemo [address] [place] [address] Giardia lamblia Not Detected Normal [facility] Comment on above: Order Comment: Order Added by Discern Expert. Performed By: #### 2 696176 #### TAMARA RemHemo [address] [place] [id number] Norovirus GI/GII Not Detected Normal [facility] Comment on above: Order Comment: Order Added by Discern Expert. Performed By: #### 2 [id number] #### TAMARA RemHemo [address] [place] [id number] Plesiomonas shigelloides Not Detected Normal [facility] Comment on above: Order Comment: Order Added by Discern Expert. Performed By: #### 2 [id number] #### TAMARA RemHemo [address] [place] [id number] Protein mass conc Not Detected Normal [facility] Comment on above: Order Comment: Order Added by Discern Expert. Performed By: #### 2 703147 #### TAMARA RemHemo [address] [place] [phone] Rotavirus A Not Detected Normal [facility] [...] of gastrointestinal infection. Performed By: #### 2 666589 #### TAMARA RemHemo [address] [place] [address] Salmonella Not Detected Normal [facility] Comment on above: Order Comment: Order Added by Discern Expert. Performed By: #### 2 [id number] #### TAMARA RemHemo [address] [place] [address] Sapovirus Not Detected Normal [facility] Comment on above: Order Comment: Order Added by Discern Expert. Performed By: #### 2 111488 #### TAMARA RemHemo [address] [place] [phone] Shigella/Enteroinvasive E coli (EIEC) Not Detected Normal [facility] Comment on above: Order Comment: Order Added by Discern Expert. Performed By: #### 2 866151 #### TAMARA MorochoHemo [address] [place] [address] Vibrio Not Detected Normal [facility] Comment on above: Order Comment: Order Added by Discern Expert. Performed By: #### 2 288476 #### TAMARA MorochoHemo [address] [place] [phone] Yersinia enterocolitica Not Detected Normal [facility] Comment on above: Order Comment: Order Added by Discern Expert. Performed By: #### 2 808270 #### TAMARA MorochoHemo [address] [place] [phone] XR Upper GI w/ Air Contrast + KUBon 12-17-2018 XR Upper GI w/ Air Contrast + KUB Exam Date/Time: 12/17/2018 09:43 EDT Reason for Exam: Other (please specify) Report STUDY: Double-contrast upper GI series with small-bowel follow-through dated 12/17/2018. INDICATION: Pain. COMPARISON: None. ACCESSION NUMBER(S): [id number] ORDERING CLINICIAN: Love Barnhart TECHNIQUE: Application Development Intern radiograph of the abdomen was obtained. Patient [...] by: Krystian Lepe MD Technologist: TRD Normal [facility] Amylaseon 12-16-2018 Amylase enzyme act/vol 51 Int._Unit/L Normal 29-103 [facility] Comment on above: Performed By: #### 2 [id number] #### TAMARA [employer] [address] [place] [address] Auto Diffon 12-16-2018 Basophils #/vol (Bld) 0.0 E3/mcL Normal 0.0-0.2 [facility] Comment on above: Order Comment: Order Added by Discern Expert. Performed By: #### 2 [id number] #### TAMARA RemHemo [address] [place] [address] Basophils/100 WBC (Bld) 0.6 % Normal 0.0-2.0 [facility] Comment on above: Order Comment: Order Added by Discern Expert. Performed By: #### 2 486125 #### TAMARA RemHemo [address] [place] [address] Eos Absolute 0.1 E3/mcL Normal 0.0-0.7 [facility] Comment on above: Order Comment: Order Added by Discern Expert. Performed By: #### 2 738062 #### TAMARA RemHemo [address] [place] [address] Eosinophils/100 WBC (Bld) 0.9 % Normal 0.0-11.0 [facility] Comment on above: Order Comment: Order Added by Discern Expert. Performed By: #### 2 839159 #### TAMARA RemHemo [address] [place] [address] Lymphocytes #/vol (Bld) 1.7 E3/mcL Normal 1.2-3.4 [facility] Comment on above: Order Comment: Order Added by Discern Expert. Performed By: #### 2 752449 #### TAMARA RemHemo [address] [place] [address] Lymphocytes/100 WBC (Bld) 28.5 % Normal 20.0-55.0 [facility] Comment on above: Order Comment: Order Added by Discern Expert. Performed By: #### 2 459607 #### TAMARA RemHemo [address] [place] [address] [place] Absolute 0.4 E3/mcL Normal 0.0-0.7 [facility] Comment on above: Order Comment: Order Added by Discern Expert. Performed By: #### 2 088038 #### TAMARA MorochoHemo [address] [place] [phone] Monocytes/100 WBC (Bld) 6.6 % Normal 0.0-10.0 [facility] Comment on above: Order Comment: Order Added by Discern Expert. Performed By: #### 2 [id number] #### TAMARA RemHemo [address] [place] [phone] Neutro Absolute 3.8 E3/mcL Normal 1.4-6.5 [facility] Comment on above: Order Comment: Order Added by Discern Expert. Performed By: #### 2 716846 #### TAMARA RemHemo [facility] [place] [address] Neutro Auto 63.4 % Normal 37.0-75.0 [facility] Comment on above: Order Comment: Order Added by Discern Expert. Performed By: #### 2 793684 #### TAMARA RemHemo [address] [place] [address] BMPon 12-16-2018 Anion gap molar conc 13 mmol/L Normal 10-20 [facility] Comment on above: Performed By: #### 2 558247 #### TAMARA [employer] [address] [place] [address] Calcium mass conc 9.3 mg/dL Normal 8.6-10.3 [facility] Comment on above: Performed By: #### 2 007973 #### TAMARA [employer] [address] [place] [address] Chloride molar conc 105 mmol/L Normal 98-107 [facility] Comment on above: Performed By: #### 2 550091 #### [facility] [employer] [address] [place] [address] CO2 molar conc 23.0 mmol/L Normal 21.0-32.0 [facility] Comment on above: Performed By: #### 2 432927 #### [facility] [employer] [address] [place] [address] Creatinine mass conc 0.8 mg/dL Normal 0.5-1.1 [facility] Comment on above: Performed By: #### 2 935400 #### TAMARA [employer] [address] [place] [address] Glucose mass conc 66 mg/dL Low 70-99 [facility] Comment on above: Performed By: #### 2 901894 #### TAMARA [employer] [address] [place] [address] Potassium molar conc 3.8 mmol/L Normal 3.5-5.3 [facility] Comment on above: Performed By: #### 2 688456 #### TAMARA [employer] [address] [place] [address] Sodium molar conc 138 mmol/L Normal 136-145 [facility] Comment on above: Performed By: #### 2 201875 #### TAMARA [employer] [address] [place] [address] Urea nitrogen mass conc 11 mg/dL Normal 6-23 [facility] Comment on above: Performed By: #### 2 122197 #### TAMARA [employer] [address] [place], [place] [address] Urea nitrogen/Creatinine mass ratio 13.8 ratio Normal 5.4-30.0 [facility] Comment on above: Performed By: #### 2 656527 #### [facility] [employer] [address] [place] [address] CBC w/ Auto Diffon 9 Erythrocyte distribution width Ratio (RBC) 12.5 % Normal 11.5-14.5 [facility] Comment on above: Performed By: #### 2 081962 #### TAMARA RemHemo [address] [place] [address] Hematocrit Volume Fraction (Bld) 42.1 % Normal 36.0-48.0 [facility] Comment on above: Performed By: #### 2 772183 #### TAMARA RemHemo [facility] [place] [address] Hemoglobin mass conc (Bld) 14.2 g/dL Normal 12.0-16.0 [facility] Comment on above: Performed By: #### 2 960041 #### TAMARA RemHemo [address] [place], [place] [address] MCH Entitic mass (RBC) 29.7 pg Normal 27.0-31.0 [facility] Comment on above: Performed By: #### 2 159140 #### TAMARA RemHemo [address] [place] [address] MCHC mass conc (RBC) 33.7 g/dL Normal 33.0-37.0 [facility] Comment on above: Performed By: #### 2 767825 #### TAMARA RemHemo [address] [place] [address] MCV Entitic volume (RBC) 88.2 fL Normal 78.0-100.0 [facility] Comment on above: Performed By: #### 2 019020 #### TAMARA MorochoHemo [address] [place] [address] Platelet mean volume Entitic volume (Bld) 9.1 fL Normal 7.4-11.0 [facility] Comment on above: Performed By: #### 2 [id number] #### TAMARA RemHemo [address] [place] [address] Platelets #/vol (Bld) 200 E3/mcL Normal 130-400 [facility] Comment on above: Performed By: #### 2 [id number] #### TAMARA RemHemo [address] [place] [address] RBC #/vol (Bld) 4.77 E6/mcL Normal 3.90-5.40 [facility] Comment on above: Performed By: #### 2 528024 #### TAMARA RemHemo [address] [place] [address] WBC #/vol (Bld) 6.0 E3/mcL Normal 3.6-11.0 [facility] Comment on above: Performed By: #### 2 136012 #### TAMARA RemHemo [facility] [place] [address] CRPon 12-16-2018 CRP mass conc 1.06 mg/dL High 0.00-1.00 [facility] Comment on above: Performed By: #### 2 262745 #### TAMARA [employer] [address] [place], [place] [address] CT Abdomen/Pelvis w/ Contras ton 12-16-2018 CT Abdomen/Pelvis w/ Contrast Exam Date/Time: 12/16/2018 16:14 EDT Reason for Exam: Abdominal Pain;Other (please specify) Report STUDY: CT Abdomen/Pelvis w/ Contrast; 12/16/2018 4:14 pm INDICATION: Other (please specify). Epigastric pain for 6 days. Pain when swallowing. Recent international travel. COMPARISON: None. ACCESSION NUMBER(S): [id number] ORDERING CLINICIAN: Grant Qureshi TECHNIQUE: Contiguous axial [...] by: Sagar Blue MD Technologist: AM, Normal [facility] Hep Func Panelon 12-16-2018 Albumin mass conc 4.4 g/dL Normal 3.4-5.0 [facility] Comment on above: Performed By: #### 2 [id number] #### [employer] [address] [place] [address] [id number] Albumin/Globulin mass ratio 1.8 {ratio} Normal 1.1-1.9 [facility] Comment on above: Performed By: #### 2 [id number] #### [employer] [address] [place] [address] 34145 Alk Phos 40 Int._Unit/L Normal 33-110 [facility] Comment on above: Performed By: #### 2 [id number] #### [employer] [address] [place] [address] 14539 ALT enzyme act/vol 12 Int._Unit/L Normal 7-45 [facility] Comment on above: Performed By: #### 2 [id number] #### [employer] [address] [place] [address] 15934 AST enzyme act/vol 15 Int._Unit/L Normal 9-39 [facility] Comment on above: Performed By: #### 2 [id number] #### [employer] [address] [place] [address] 61528 Bili Direct 0.17 mg/dL Normal 0.00-0.30 [facility] Comment on above: Performed By: #### 2 [id number] #### [employer] [address] [place] [address] 31147 Bili Indirect 0.47 mg/dL Normal [facility] Comment on above: Result Comment: No e stablished ranges available for the indirect bilirubin Performed By: #### 2 [id number] #### [employer] [address] [place] [address] 71022 Bili Total 0.64 mg/dL Normal 0.00-1.20 [facility] Comment on above: Performed By: #### 2 [id number] #### [employer] [address] [place] [address] 29634 Globulin mass conc (S) 3.0 g/dL Normal 2.0-4.0 [facility] Comment on above: Performed By: #### 2 [id number] #### [employer] [address] [place] [address] Protein mass conc 6.9 g/dL Normal 6.4-8.2 [facility] Comment on above: Performed By: #### 2 [id number] #### [employer] [address] [place] [address] Lipase Levelon 12-16-2018 Lipase Lvl 21 Int._Unit/L Normal 9-82 [facility] Comment on above: Performed By: #### 2 [id number] #### [employer] [address] [place] [address] U BhCG Qlton 12-16-2018 HCG.beta subunit Qn Negative Normal Neg [facility] Comment on above: Performed By: #### 2 [id number] #### TAMARA Urinalysis Manual Subsection [address] [place] [address] UA Completeon 12-16-2018 Color Nom (U) Yellow Normal Yellow [facility] Comment on above: Performed By: #### 8 [id number] #### TAMARA Urinalysis Automated Subsection [address] [place] [address] Glucose mass conc (U) Negative Normal Negative [facility] Comment on above: Performed By: #### 8 [id number] #### TAMARA Urinalysis Automated Subsection [address] [place] [address] Ketones Ql (U) 2+ Abnormal Negative [facility] Comment on above: Performed By: #### 8 [id number] #### TAMARA Urinalysis Automated Subsection [address] [place] [address] RBC #/vol (U) 5-10 Abnormal 0-3 [facility] Comment on above: Performed By: #### 8 [id number] #### TAMARA Urinalysis Automated Subsection [address] [place] [address] UA Blood 1+ Abnormal Negative [facility] Comment on above: Performed By: #### 8 [id number] #### TAMARA Urinalysis Automated Subsection [address] [place] [address] UA Clarity Clear Normal Clear [facility] Comment on above: Performed By: #### 8 [id number] #### TAMARA Urinalysis Automated Subsection [facility] [place] [address] UA Leuk Est Negative Normal Negative [facility] Comment on above: Performed By: #### 8 [id number] #### TAMARA Urinalysis Automated Subsection [address] [place] [address] UA Mucous Trace Abnormal Trace [facility] Comment on above: Performed By: #### 8 [id number] #### TAMARA Urinalysis Automated Subsection [address] [place] [address] 27735 UA Nitrite Negative Normal Negative [facility] Comment on above: Performed By: #### 8 [id number] #### TAMARA Urinalysis Automated Subsection [address] [place] [address] UA pH 5.0 Normal 4.6-8.0 [facility] Comment on above: Performed By: #### 8 [id number] #### TAMARA Urinalysis Automated Subsection [address] [place] [address] UA Protein Negative Normal Negative [facility] Comment on above: Performed By: #### 8 [id number] #### TAMARA Urinalysis Automated Subsection [address] [place] [address] UA Spec Grav 1.024 Normal 1.003-1.030 [facility] Comment on above: Performed By: #### 8 [id number] #### TAMARA Urinalysis Automated Subsection [address] [place] [address] UA Squam Epithelial 5-10 Abnormal 0-5 [facility] Comment on above: Performed By: #### 8 [id number] #### TAMARA Urinalysis Automated Subsection [address] [place] [address] UA Urobilinogen Negative Normal [facility] Comment on above: Result Comment: Due to a manufacturing issue, low positive urobilinogen results may be fasely positive. Correlate with urine bilirubin and additional clinical/laboratory findings to assess the risk of hemolytic anemia or liver disease. If clinically indicated, repeat testing with an alternate method is available by contacting the laboratory within 24 hours. Performed By: #### 8 [id number] #### TAMARA Urinalysis Automated Subsection [address] [place] [address] Urobilinogen Qn (U) Negative Normal Negative [facility] Comment on above: Performed By: #### 8 [id number] #### TAMARA Urinalysis Automated Subsection [address] [place] [address] eGFRon 12-16-2018 GFR/1.73 sq M predicted among non-blacks MDRD vol rate/area (S/P/Bld) mL/min/{1.73_m2} Normal [facility] Comment on above: Order Comment: Order added by Discern Expert. Performed By: #### 1 [id number] #### TAMARA [employer] [address] [place] [address] Beta HCG Quant, EDon 019 Beta HCG Quant, ED <0.6 Normal <5.0 [facility] Comment on above: Result Comment: NEGA TIVE Performed By: #### H CGED #### [facility] [address] [place] [address] CBC and Differentialon 12-15 Abs Baso 0.03 k/uL Normal <0.11 [facility] Comment on above: Performed By: #### C BCDIF, CMP, LIPA #### [facility] [address] [place] [address] Abs [place] 0.49 k/uL Normal <0.87 [facility] Comment on above: Performed By: #### C BCDIF, CMP, LIPA #### [facility] [address] [place], [place] [address] Abs Neut 4.23 k/uL Normal 1.45-7.50 [facility] Comment on above: Performed By: #### C BCDIF, CMP, LIPA #### [facility] [address] [place], [place] [address] Absolute nRBC <0.01 Normal <0.01 [facility] Comment on above: Performed By: #### C BCDIF, CMP, LIPA #### [facility] [address] [place] [address] Basophils/100 WBC (Bld) 0.4 % Normal C [facility] Comment on above: Performed By: #### C BCDIF, CMP, LIPA #### [place] [address] [place] [phone] DTYPE Auto Diff Normal [facility] Comment on above: Performed By: #### C BCDIF, CMP, LIPA #### [place] [address] [phone] Eosinophils #/vol (Bld) 0.09 10*3/uL Normal <0.46 [facility] Comment on above: Performed By: #### C BCDIF, CMP, LIPA #### [place] [phone] Eosinophils/100 WBC (Bld) 1.3 % Normal [facility] Comment on above: Performed By: #### C BCDIF, CMP, LIPA #### [place] [phone] Erythrocyte distribution width Ratio (RBC) 12.1 % Normal 11.5-15.0 [facility] Comment on above: Performed By: #### C BCDIF, CMP, LIPA #### [place] [address] [place] [phone] Hematocrit Volume Fraction (Bld) 37.7 % Normal 36.0-46.0 [facility] Comment on above: Performed By: #### C BCDIF, CMP, LIPA #### [place] [phone] Hemoglobin mass conc (Bld) 13.0 g/dL Normal 11.5-15.5 [facility] Comment on above: Performed By: #### C BCDIF, CMP, LIPA #### [place] [phone] Lymphocytes #/vol (Bld) 2.16 10*3/uL Normal 1.00-4.00 [facility] Comment on above: Performed By: #### C BCDIF, CMP, LIPA #### [facility] [address] [place], [place] [address] Lymphocytes/100 WBC (Bld) 30.8 % Normal [facility] Comment on above: Performed By: #### C BCDIF, CMP, LIPA #### [facility] [address] [place] [address] MCH Entitic mass (RBC) 29.5 pG Normal 26.0-34.0 [facility] Comment on above: Performed By: #### C BCDIF, CMP, LIPA #### [place] [address] [place] [address] MCHC mass conc (RBC) 34.5 g/dL Normal 30.5-36.0 [facility] Comment on above: Performed By: #### C BCDIF, CMP, LIPA #### [place] [address] MCV Entitic volume (RBC) 85.7 fL Normal 80.0-100.0 [facility] Comment on above: Performed By: #### C BCDIF, CMP, LIPA #### [place] [address] Monocytes/100 WBC (Bld) 7.0 % Normal [facility] Comment on above: Performed By: #### C BCDIF, CMP, LIPA #### [facility] [address] [place] [phone] Neutrophils/100 WBC (Bld) 60.5 % Normal [facility] Comment on above: Performed By: #### C BCDIF, CMP, LIPA #### [place] [address] [place] [address] NRBCs 0.0 /100 WBC Normal 0 [facility] Comment on above: Performed By: #### C BCDIF, CMP, LIPA #### [place] [id number] Platelet mean volume Entitic volume (Bld) 10.6 fL Normal 9.0-12.7 [facility] Comment on above: Performed By: #### C BCDIF, CMP, LIPA #### [place] [address] [place], [place] [address] Platelets #/vol (Bld) 217 10*3/uL Normal 150-400 [facility] Comment on above: Performed By: #### C BCDIF, CMP, LIPA #### [place] [address] RBC #/vol (Bld) 4.40 10*6/uL Normal 3.90-5.20 [facility] Comment on above: Performed By: #### C BCDIF, CMP, LIPA #### [place] [address] WBC #/vol (Bld) 7.02 10*3/uL Normal 3.70-11.00 [facility] Comment on above: Performed By: #### C BCDIF, CMP, LIPA #### [place] [address] Comp Metabolic Panelon 12-15 Albumin mass conc 4.3 g/dL Normal 3.9-4.9 [facility] Comment on above: Performed By: #### C BCDIF, CMP, LIPA #### [place] [address] [place] [phone] ALP enzyme act/vol 40 U/L Normal 34-123 [facility] Comment on above: Performed By: #### C BCDIF, CMP, LIPA #### [place] [address] [place], [place] [address] ALT enzyme act/vol 13 U/L Normal 7-38 [facility] Comment on above: Performed By: #### C BCDIF, CMP, LIPA #### [facility] [address] [place] [phone] Anion gap molar conc 13 mmol/L Normal 9-18 [facility] Comment on above: Performed By: #### C BCDIF, CMP, LIPA #### [facility] [address] [place] [phone] AST enzyme act/vol 15 U/L Normal 13-35 [facility] Comment on above: Performed By: #### C BCDIF, CMP, LIPA #### [facility] [address] [place] [phone] Bilirubin mass conc 0.6 mg/dL Normal 0.2-1.3 [facility] Comment on above: Performed By: #### C BCDIF, CMP, LIPA #### [facility] [address] [place] [phone] Calcium mass conc 9.3 mg/dL Normal 8.5-10.2 [facility] Comment on above: Performed By: #### C BCDIF, CMP, LIPA #### [facility] [address] [place] [phone] Chloride molar conc 103 mmol/L Normal 97-105 [facility] Comment on above: Performed By: #### C BCDIF, CMP, LIPA #### [facility] [address] [place] [phone] CO2 molar conc 24 mmol/L Normal 22-30 [facility] Comment on above: Performed By: #### C BCDIF, CMP, LIPA #### [facility] [address] [place] [phone] Creatinine mass conc 0.86 mg/dL Normal 0.58-0.96 [facility] Comment on above: Performed By: #### C BCDIF, CMP, LIPA #### [facility] [address] [place] [address] eGFR- Amer. >60 Normal [facility] Comment on above: Performed By: #### C BCDIFJUJU, LIPA #### [facility] [employer] [address] [place] [phone] GFR/1.73 sq M predicted among non-blacks MDRD vol rate/area (S/P/Bld) mL/min/{1.73_m2} Normal [facility] [...] Performed By: #### C BCDIFJUJU, LIPA #### [facility] [address] [place] [address] Glucose mass conc 92 mg/dL Normal 74-99 [facility] Comment on above: Result Comment: The [place] Diabetes Association (ADA) provides guidance for cutoff [...] Standards of Medical Care in Diabetes 2016, [place] Diabetes Association. Diabetes Care. 2016.39(Suppl 1). Performed By: #### C BCDIF, CMP, LIPA #### [facility] [address] [place] [phone] Potassium molar conc 3.5 mmol/L Low 3.7-5.1 [facility] Comment on above: Performed By: #### C BCDIF, CMP, LIPA #### [facility] [address] [place], [place] [address] Protein mass conc 6.9 g/dL Normal 6.3-8.0 [facility] Comment on above: Performed By: #### C BCDIF, CMP, LIPA #### [facility] [address] [place] [address] Sodium molar conc 140 mmol/L Normal 136-144 [facility] Comment on above: Performed By: #### C BCDIF, CMP, LIPA #### [facility] [address] [place] [address] Urea nitrogen mass conc 7 mg/dL Normal 7-21 [facility] Comment on above: Performed By: #### C BCDIF, CMP, LIPA #### [place] [address] [place] [address] ED PROV NOTEon 12-15-2018 Protein mass conc HNO ID: [id number] Author: Daniela Walton MD Service: Emergency Medicine [...] SONOGRAPHIC APPEARANCE OF THE RIGHT UPPER QUADRANT. [employer]: NANETTE Transcribe Date/Time: Dec 15 2018 3:57A [...] SONOGRAPHIC APPEARANCE OF THE RIGHT UPPER QUADRANT. [employer]: NANETTE ? Transcribe Date/Time: Dec 15 2018 [...] QUADRANT ULTRASOUND CLINICAL HISTORY: Patient returned from [place] trip to [place] with right upper quadrant abdominal pain x4 [...] or torsion. With her recent travel to [place] considered strongly the possibility of a viral [...] MD Daniela Brown MD 12/15/18 0501 Normal [facility] Lipaseon 12-15-2018 Lipase enzyme act/vol 24 U/L Normal 16-61 [facility] Comment on above: Performed By: #### C BCDIF, CMP, LIPA #### [facility] [address] [place] [phone] US ABD RIGHT UPPER QUADRANTo n 12-15-2018 US ABD RIGHT UPPER QUADRANT * * *Final Report* * * DATE OF EXAM: Dec 15 2018 3:31AM INU 1032 - US ABD RIGHT UPPER QUADRANT / PROCEDURE REASON: RUQ abdominal pain * * * * Physician Interpretation * * * * EXAMINATION: RIGHT UPPER QUADRANT ULTRASOUND CLINICAL HISTORY: Patient returned from [place] trip to [place] with right upper quadrant abdominal pain x4 [...] SONOGRAPHIC APPEARANCE OF THE RIGHT UPPER QUADRANT. [employer]: PSCB Transcribe Date/Time: Dec 15 2018 3:57A Dictated by : NANDO ALICEA MD This examination was interpreted and the report reviewed and electronically signed by: TONG ALBA MD on Dec 15 2018 4:19AM EST [id number] Normal [facility] Culture, urine Bacteria identified Cx Nom (U) Positive [facility] Work Phone: No Panel Information Group B Streptococcus Culture Streptococcus agalactiae (B) [facility] Work Phone: Vital Signs Date Time Vital Sign Value Performing Clinician Jesse medellin 06-23-2025 14:14-0400 Body height 157.[address] Laureen Rasmussen MD Work Phone: [facility] 06-23-2025 14:14-0400 Body mass index (BMI) [Ratio] 29.9 kg/m2 Dr. Laureen Rasmussen MD Work Phone: [facility] 06-23-2025 14:14-0400 Body weight 74.[address] Laureen Rasmussen MD Work Phone: [facility] 06-23-2025 14:14-0400 Diastolic blood pressure 75 mm[Hg] Dr. Laureen Rasmussen MD Work Phone: [facility] 06-23-2025 14:14-0400 Systolic blood pressure 113 mm[Hg] Dr. Laureen Rasmussen MD Work Phone: [facility] 05-27-2025 14:55-0400 Body height 157.[address] Laureen Rasmussen MD Work Phone: [facility] 05-27-2025 14:55-0400 Body mass index (BMI) [Ratio] 29.9 kg/m2 Dr. Laureen Rasmussen MD Work Phone: [facility] 05-27-2025 14:55-0400 Body weight 74.[address] Laureen Rasmussen MD Work Phone: [facility] 05-27-2025 14:55-0400 Diastolic blood pressure 71 mm[Hg] Dr. Laureen Rasmussen MD Work Phone: [facility] 05-27-2025 14:55-0400 Systolic blood pressure 106 mm[Hg] Dr. Laureen Rasmussen MD Work Phone: [facility] 01-15-2024 08:37-0400 Body temperature 97.7 [degF] No Primary Care Physician [facility] 01-15-2024 08:37-0400 Diastolic blood pressure 72 mm[Hg] No Primary Care Physician [facility] 01-15-2024 08:37-0400 Heart rate 81 /min No Primary Care Physician [facility] 01-15-2024 08:37-0400 Respiratory rate 16 /min No Primary Care Physician [facility] 01-15-2024 08:37-0400 SaO2% (BldA) [Mass fraction] 99 % No Primary Care Physician [facility] 01-15-2024 08:37-0400 Systolic blood pressure 108 mm[Hg] No Primary Care Physician [facility] 01-14-2024 14:00-0400 Body temperature 98.4 [degF] No Primary Care Physician [facility] 01-14-2024 03:00-0400 Respiratory rate 16 /min No Primary Care Physician [facility] 01-14-2024 02:59-0400 Diastolic blood pressure 58 mm[Hg] No Primary Care Physician [facility] 01-14-2024 02:59-0400 Heart rate 89 /min No Primary Care Physician [facility] 01-14-2024 02:59-0400 Systolic blood pressure 101 mm[Hg] No Primary Care Physician [facility] 01-14-2024 01:25-0400 SaO2% (BldA) [Mass fraction] 99 % No Primary Care Physician [facility] 01-13-2024 12:59-0400 Body height 157.48 cm No Primary Care Physician [facility] 01-13-2024 12:59-0400 Body mass index (BMI) [Ratio] 27.8 kg/m2 No Primary Care Physician [facility] 01-13-2024 12:59-0400 Body weight 68.94 kg No Primary Care Physician [facility] 01-13-2024 12:01-0400 Diastolic blood pressure 75 mm[Hg] No Primary Care Physician [facility] 01-13-2024 12:01-0400 Systolic blood pressure 116 mm[Hg] No Primary Care Physician [facility] 01-13-2024 11:31-0400 Body mass index (BMI) [Ratio] 29.9 kg/m2 No Primary Care Physician [facility] 01-13-2024 11:31-0400 Body weight 74.38 kg No Primary Care Physician [facility] 01-08-2024 14:46-0400 Body mass index (BMI) [Ratio] 29.4 kg/m2 No Primary Care Physician [facility] 01-08-2024 14:46-0400 Body weight 73.02 kg No Primary Care Physician [facility] 01-08-2024 14:46-0400 Diastolic blood pressure 79 mm[Hg] No Primary Care Physician [facility] 01-08-2024 14:46-0400 Systolic blood pressure 114 mm[Hg] No Primary Care Physician [facility] 01-02-2024 11:40-0400 Body height 157.48 cm No Primary Care Physician [facility] 01-02-2024 11:40-0400 Body mass index (BMI) [Ratio] 29.6 kg/m2 No Primary Care Physician [facility] 01-02-2024 11:40-0400 Body weight 73.48 kg No Primary Care Physician [facility] 01-02-2024 11:19-0400 Body temperature 98.1 [degF] No Primary Care Physician [facility] 01-02-2024 11:19-0400 Respiratory rate 18 /min No Primary Care Physician [facility] 01-02-2024 11:18-0400 Diastolic blood pressure 72 mm[Hg] No Primary Care Physician [facility] 01-02-2024 11:18-0400 Heart rate 87 /min No Primary Care Physician [facility] 01-02-2024 11:18-0400 Systolic blood pressure 111 mm[Hg] No Primary Care Physician [facility] 12-11-2023 11:03-0500 Body height 157.48 cm No Primary Care Physician [facility] 12-11-2023 11:02-0500 Body mass index (BMI) [Ratio] 29.3 kg/m2 No Primary Care Physician [facility] 12-11-2023 11:02-0500 Body weight 72.74 kg No Primary Care Physician [facility] 12-11-2023 11:02-0500 Diastolic blood pressure 73 mm[Hg] No Primary Care Physician [facility] 12-11-2023 11:02-0500 Systolic blood pressure 116 mm[Hg] No Primary Care Physician [facility] 11-28-2023 11:27-0500 Diastolic blood pressure 64 mm[Hg] No Primary Care Physician [facility] 11-28-2023 11:27-0500 Systolic blood pressure 103 mm[Hg] No Primary Care Physician [facility] 11-28-2023 11:03-0500 Body mass index (BMI) [Ratio] 28.9 kg/m2 No Primary Care Physician [facility] 11-28-2023 11:03-0500 Body weight 71.66 kg No Primary Care Physician [facility] 11-13-2023 11:48-0500 Body mass index (BMI) [Ratio] 28.5 kg/m2 No Primary Care Physician [facility] 11-13-2023 11:48-0500 Body weight 70.76 kg No Primary Care Physician [facility] 11-13-2023 11:48-0500 Diastolic blood pressure 73 mm[Hg] No Primary Care Physician [facility] 11-13-2023 11:48-0500 Systolic blood pressure 123 mm[Hg] No Primary Care Physician [facility] 10-17-2023 09:11-0500 Body height 157.48 cm No Primary Care Physician [facility] 10-17-2023 09:11-0500 Body mass index (BMI) [Ratio] 28.2 kg/m2 No Primary Care Physician [facility] 10-17-2023 09:11-0500 Body weight 69.96 kg No Primary Care Physician [facility] 10-17-2023 09:11-0500 Diastolic blood pressure 78 mm[Hg] No Primary Care Physician [facility] 10-17-2023 09:11-0500 Systolic blood pressure 126 mm[Hg] No Primary Care Physician [facility] 09-19-2023 15:09-0500 Body mass index (BMI) [Ratio] 28.1 kg/m2 No Primary Care Physician [facility] 09-19-2023 15:09-0500 Body weight 69.85 kg No Primary Care Physician [facility] 09-19-2023 15:09-0500 Diastolic blood pressure 63 mm[Hg] No Primary Care Physician [facility] 09-19-2023 15:09-0500 Systolic blood pressure 99 mm[Hg] No Primary Care Physician [facility] 08-19-2023 14:12-0500 Body mass index (BMI) [Ratio] 27.3 kg/m2 No Primary Care Physician [facility] 08-19-2023 14:12-0500 Body weight 67.75 kg No Primary Care Physician [facility] 08-19-2023 14:12-0500 Diastolic blood pressure 73 mm[Hg] No Primary Care Physician [facility] 08-19-2023 14:12-0500 Systolic blood pressure 110 mm[Hg] No Primary Care Physician [facility] 07-25-2023 09:20-0400 Body height 157.48 cm No Primary Care Physician [facility] 07-25-2023 09:15-0400 Body mass index (BMI) [Ratio] 26.7 kg/m2 No Primary Care Physician [facility] 07-25-2023 09:15-0400 Body weight 66.39 kg No Primary Care Physician [facility] 07-25-2023 09:15-0400 Diastolic blood pressure 77 mm[Hg] No Primary Care Physician [facility] 07-25-2023 09:15-0400 Systolic blood pressure 127 mm[Hg] No Primary Care Physician [facility] 06-24-2023 08:55-0400 Body height 157.[address] Fanta Zarate Work Phone: [facility] 06-24-2023 08:50-0400 Body mass index (BMI) [Ratio] 26.8 kg/m2 Dr. Fanta Zarate Work Phone: [facility] 06-24-2023 08:50-0400 Body weight 66.[address] Fanta Zarate Work Phone: [facility] 06-24-2023 08:50-0400 Diastolic blood pressure 63 mm[Hg] Dr. Fanta Zarate Work Phone: [facility] 06-24-2023 08:50-0400 Systolic blood pressure 110 mm[Hg] Dr. Fanta Zarate Work Phone: [facility] 06-22-2022 15:25-0400 Heart rate 63 /min [facility] Work Phone: 06-22-2022 15:25-0400 SaO2% (BldA) [Mass fraction] 97 % [facility] [place] Work Phone: 06-22-2022 15:24-0400 Diastolic blood pressure 55 mm[Hg] [facility] [place] Work Phone: 06-22-2022 15:24-0400 Systolic blood pressure 105 mm[Hg] [facility] [place] Work Phone: 06-22-2022 15:23-0400 Body temperature 97.3 [degF] [facility] Work Phone: 06-22-2022 11:46-0400 Respiratory rate 18 /min [facility] Work Phone: 06-21-2022 07:27-0400 Body height 157.48 cm [facility] Work Phone: 06-21-2022 07:27-0400 Body mass index (BMI) [Ratio] 29.8 kg/m2 [facility] [place] Work Phone: 06-21-2022 07:27-0400 Body weight 73.93 kg [facility] Work Phone: 06-18-2022 03:42-0400 Body weight 73.3 kg [facility] Work Phone: 06-18-2022 00:43-0400 Diastolic blood pressure 62 mm[Hg] [facility] [place] Work Phone: 06-18-2022 00:43-0400 Heart rate 86 /min [facility] Work Phone: 06-18-2022 00:43-0400 Systolic blood pressure 101 mm[Hg] [facility] [place] Work Phone: 06-18-2022 00:36-0400 SaO2% (BldA) [Mass fraction] 98 % [facility] [place] Work Phone: 06-09-2022 18:38-0400 Heart rate 103 /min [facility] Work Phone: 06-09-2022 18:38-0400 SaO2% (BldA) [Mass fraction] 98 % [facility] [place] Work Phone: 06-09-2022 07:19-0400 Body height 157.48 cm [facility] Work Phone: 06-09-2022 07:19-0400 Body mass index (BMI) [Ratio] 29.5 kg/m2 [facility] [place] Work Phone: 06-09-2022 07:19-0400 Body weight 73.4 kg [facility] Work Phone: 06-09-2022 06:58-0400 Diastolic blood pressure 73 mm[Hg] [facility] [place] Work Phone: 06-09-2022 06:58-0400 Heart rate 95 /min [facility] Work Phone: 06-09-2022 06:58-0400 Systolic blood pressure 121 mm[Hg] [facility] [place] Work Phone: 06-09-2022 06:54-0400 Body temperature 97.6 [degF] [facility] Work Phone: 06-07-2022 15:59-0400 Heart rate 108 /min [facility] Work Phone: 06-07-2022 15:59-0400 SaO2% (BldA) [Mass fraction] 99 % [facility] [place] Work Phone: 06-07-2022 11:15-0400 Body mass index (BMI) [Ratio] 29.5 kg/m2 [facility] [place] Work Phone: 06-07-2022 11:15-0400 Body weight 73.08 kg [facility] Work Phone: 06-07-2022 11:12-0400 Diastolic blood pressure 69 mm[Hg] [facility] [place] Work Phone: 06-07-2022 11:12-0400 Systolic blood pressure 117 mm[Hg] [facility] [place] Work Phone: 04-23-2022 19:49-0400 Body height 157.48 cm [facility] Work Phone: 04-23-2022 19:49-0400 Body mass index (BMI) [Ratio] 28.1 kg/m2 [facility] [place] Work Phone: 04-23-2022 19:49-0400 Body weight 69.76 kg [facility] Work Phone: 04-23-2022 19:31-0400 Diastolic blood pressure 67 mm[Hg] [facility] [place] Work Phone: 04-23-2022 19:31-0400 Heart rate 73 /min [facility] Work Phone: 04-23-2022 19:31-0400 Systolic blood pressure 116 mm[Hg] [facility] [place] Work Phone: 04-23-2022 19:30-0400 Body temperature 97.4 [degF] [facility] Work Phone: 08-24-2021 10:51-0500 Body height 157.5 cm Parmjit Enrique MD Work Phone: [facility] 08-24-2021 10:51-0500 Body mass index (BMI) [Ratio] 26.08 kg/m2 Parmjit Enrique MD Work Phone: [facility] 08-24-2021 10:51-0500 Body temperature 97.11 [degF] Parmjit Enrique MD Work Phone: [facility] 08-24-2021 10:51-0500 Body weight 64.68 kg Parmjit Enrique MD Work Phone: [facility] 08-24-2021 10:51-0500 Diastolic blood pressure 62 mm[Hg] Parmjit Enrique MD Work Phone: [facility] 08-24-2021 10:51-0500 Heart rate 98 /min Parmjit Enrique MD Work Phone: [email or web address] 08-24-2021 10:51-0500 SaO2% (BldA) [Mass fraction] 98 % Parmjit Enrique MD Work Phone: [email or web address] [facility] 08-24-2021 10:51-0500 Systolic blood pressure 114 mm[Hg] Parmjit Enrique MD Work Phone: [facility] 02-26-2021 23:03-0400 Diastolic blood pressure 60 mm[Hg] Sagar Rodriguez MD Work Phone: [facility] 02-26-2021 23:03-0400 Heart rate 84 /min Sagar Rodriguez MD Work Phone: [facility] 02-26-2021 23:03-0400 Respiratory rate 18 /min Sagar Rodriguez MD Work Phone: [facility] 02-26-2021 23:03-0400 SaO2% (BldA) [Mass fraction] 98 % Sagar Rodriguez MD Work Phone: [facility] 02-26-2021 23:03-0400 Systolic blood pressure 110 mm[Hg] Sagar Rodriguez MD Work Phone: [facility] 02-26-2021 21:46-0400 Body height 157.5 cm Sagar Rodriguez MD Work Phone: [facility] 02-26-2021 21:46-0400 Body mass index (BMI) [Ratio] 25.4 kg/m2 Sagar Rodriguez MD Work Phone: [facility] 02-26-2021 21:46-0400 Body weight 63 kg Sagar Rodriguez MD Work Phone: [facility] 02-26-2021 21:45-0400 Body temperature 99.7 [degF] Sagar Rodriguez MD Work Phone: [facility] 02-08-2021 23:05-0400 Heart rate 104 /min Nehal Flower MD Work Phone: [facility] 02-08-2021 23:05-0400 SaO2% (BldA) [Mass fraction] 97 % Nehal Flower MD Work Phone: [facility] 02-08-2021 22:48-0400 Body temperature 98.6 [degF] Nehal Flower MD Work Phone: [facility] 02-08-2021 22:48-0400 Diastolic blood pressure 69 mm[Hg] Nehal Flower MD Work Phone: [facility] 02-08-2021 22:48-0400 Respiratory rate 16 /min Nehal Flower MD Work Phone: [facility] 02-08-2021 22:48-0400 Systolic blood pressure 110 mm[Hg] Nehal Flower MD Work Phone: [facility] 02-07-2021 10:06-0400 Body height 157.5 cm Mady Amor MD Work Phone: [facility] 02-07-2021 10:06-0400 Body mass index (BMI) [Ratio] 29.37 kg/m2 Mady Amor MD Work Phone: [facility] 02-07-2021 10:06-0400 Body temperature 98.2 [degF] Mady Amor MD Work Phone: [facility] 02-07-2021 10:06-0400 Body weight 72.85 kg Mady Amor MD Work Phone: [facility] 02-07-2021 10:06-0400 Diastolic blood pressure 72 mm[Hg] Mady Amor MD Work Phone: [facility] 02-07-2021 10:06-0400 Systolic blood pressure 112 mm[Hg] Mady Amor MD Work Phone: [facility] 02-06-2021 23:29-0400 Body temperature 96.6 [degF] Nehal Flower MD Work Phone: [facility] 02-06-2021 23:29-0400 Diastolic blood pressure 67 mm[Hg] Nehal Flower MD Work Phone: [facility] 02-06-2021 23:29-0400 Heart rate 83 /min Nehal Flower MD Work Phone: [facility] 02-06-2021 23:29-0400 Respiratory rate 16 /min Nehal Flower MD Work Phone: [facility] 02-06-2021 23:29-0400 SaO2% (BldA) [Mass fraction] 98 % Nehal Flower MD Work Phone: [facility] 02-06-2021 23:29-0400 Systolic blood pressure 117 mm[Hg] Nehal Flower MD Work Phone: [facility] 02-06-2021 22:15-0400 Body height 157.5 cm Nehal Flower MD Work Phone: [facility] 02-06-2021 22:15-0400 Body mass index (BMI) [Ratio] 29.15 kg/m2 Nehal Flower MD Work Phone: [facility] 02-06-2021 22:15-0400 Body weight 72.3 kg Nehal Flower MD Work Phone: [facility] 02-02-2021 13:21-0400 Body height 157.5 cm Rosita Chacon APRN-AIR PUMPER Work Phone: [facility] 02-02-2021 13:21-0400 Body mass index (BMI) [Ratio] 29.26 kg/m2 Rosita Chacon STAVE C[employer]TER[employer] Work Phone: [facility] 02-02-2021 13:21-0400 Body temperature 97.5 [degF] Rosita Chacon APRN-AIR PUMPER Work Phone: [facility] 02-02-2021 13:21-0400 Body weight 72.58 kg Rosita Chacon [employer] Work Phone: [facility] 02-02-2021 13:21-0400 Diastolic blood pressure 64 mm[Hg] Rosita Chacon APRN-AIR PUMPER Work Phone: [facility] 02-02-2021 13:21-0400 Systolic blood pressure 118 mm[Hg] Rosita Chacon APRN-AIR PU[employer]ER Work Phone: [facility] 01-26-2021 08:21-0400 Body height 157.5 cm Mady Amor MD Work Phone: [facility] 01-26-2021 08:21-0400 Body mass index (BMI) [Ratio] 29.45 kg/m2 Mady Amor MD Work Phone: [facility] 01-26-2021 08:21-0400 Body temperature 97.5 [degF] Mady Amor MD Work Phone: [facility] 01-26-2021 08:21-0400 Body weight 73.03 kg Mady Amor MD Work Phone: [facility] 01-26-2021 08:21-0400 Diastolic blood pressure 66 mm[Hg] Mady Amor MD Work Phone: [facility] 01-26-2021 08:21-0400 Systolic blood pressure 110 mm[Hg] Mady Amor MD Work Phone: [facility] 01-12-2021 08:43-0400 BMI (Body Mass Index) 28.31 kg/m2 [facility] 01-12-2021 08:43-0400 Body Temperature 98.1 [degF] [facility] [email or web address] [facility] 01-12-2021 08:43-0400 Body weight 70.22 kg [facility] [email or web address] [facility] 01-12-2021 08:43-0400 BP Diastolic 62 mm[Hg] [facility] 01-12-2021 08:43-0400 BP Systolic 120 mm[Hg] [facility] 01-12-2021 08:43-0400 Height 157.5 cm [facility] [email or web address] [facility] 12-26-2020 13:18-0400 BMI (Body Mass Index) 27.51 kg/m2 [facility] 12-26-2020 13:18-0400 Body Temperature 98.4 [degF] [facility] [employer] [facility] 12-26-2020 13:18-0400 Body weight 68.22 kg [facility] 12-26-2020 13:18-0400 BP Diastolic 62 mm[Hg] [facility] 12-26-2020 13:18-0400 BP Systolic 120 mm[Hg] [facility] 12-26-2020 13:18-0400 Height 157.5 cm [facility] 12-12-2020 08:56-0500 BMI (Body Mass Index) 27.44 kg/m2 [facility] 12-12-2020 08:56-0500 Body Temperature 97.39 [degF] [facility] 12-12-2020 08:56-0500 Body weight 68.04 kg [facility] 12-12-2020 08:56-0500 BP Diastolic 60 mm[Hg] [facility] 12-12-2020 08:56-0500 BP Systolic 100 mm[Hg] [facility] 12-12-2020 08:56-0500 Height 157.5 cm [facility] 11-28-2020 08:18-0500 BMI (Body Mass Index) 27.07 kg/m2 [facility] 11-28-2020 08:18-0500 Body Temperature 96.6 [degF] [facility] 11-28-2020 08:18-0500 Body weight 67.13 kg [facility] 11-28-2020 08:18-0500 BP Diastolic 64 mm[Hg] [facility] 11-28-2020 08:18-0500 BP Systolic 110 mm[Hg] [facility] 11-28-2020 08:18-0500 Height 157.5 cm [facility] 11-24-2020 23:45-0500 BP Diastolic 52 mm[Hg] [facility] 11-24-2020 23:45-0500 BP Systolic 105 mm[Hg] [facility] 11-24-2020 23:45-0500 Pulse (Heart Rate) 79 /min [facility] 11-24-2020 23:45-0500 Pulse Oximetry 96 % [facility] 11-24-2020 21:39-0500 Body Temperature 98.2 [degF] [facility] 11-24-2020 21:39-[address] [facility] 11-24-2020 21:39-0500 Respiratory Rate 18 /min [facility] 10-24-2020 10:31-0500 BMI (Body Mass Index) 25.79 kg/m2 [facility] 10-24-2020 10:31-0500 Body Temperature 97.3 [degF] [facility] 10-24-2020 10:31-0500 Body weight 63.96 kg [facility] 10-24-2020 10:31-0500 BP Diastolic 70 mm[Hg] [facility] 10-24-2020 10:31-0500 BP Systolic 104 mm[Hg] [facility] 10-24-2020 10:31-0500 Height 157.5 cm [facility] 10-03-2020 09:54-0500 BMI (Body Mass Index) 25.97 kg/m2 [facility] 10-03-2020 09:54-0500 Body Temperature 96.4 [degF] [facility] 10-03-2020 09:54-0500 Body weight 64.41 kg [facility] 10-03-2020 09:54-0500 BP Diastolic 60 mm[Hg] [facility] 10-03-2020 09:54-0500 BP Systolic 104 mm[Hg] [facility] 10-03-2020 09:54-0500 Height 157.5 cm [facility] 09-05-2020 14:32-0500 BMI (Body Mass Index) 25.24 kg/m2 [facility] 09-05-2020 14:32-0500 Body Temperature 97.39 [degF] [facility] 09-05-2020 14:32-0500 Body weight 62.6 kg [facility] 09-05-2020 14:32-0500 BP Diastolic 58 mm[Hg] [facility] 09-05-2020 14:32-0500 BP Systolic 102 mm[Hg] [facility] 09-05-2020 14:32-0500 Height 157.5 cm [facility] 08-01-2020 07:39-0400 BMI (Body Mass Index) 25.24 kg/m2 [facility] 08-01-2020 07:39-0400 Body Temperature 97 [degF] [facility] 08-01-2020 07:39-0400 Body weight 62.6 kg [facility] 08-01-2020 07:39-0400 BP Diastolic 56 mm[Hg] [facility] 08-01-2020 07:39-0400 BP Systolic 108 mm[Hg] [facility] 08-01-2020 07:39-0400 Height 157.5 cm [facility] 06-30-2020 16:53-0400 Body surface area Derived from formula 1.62 m2 [facility] 06-30-2020 08:03-0400 BMI (Body Mass Index) 24.87 kg/m2 [facility] 06-30-2020 08:03-0400 Body Temperature 97.81 [degF] [facility] 06-30-2020 08:03-0400 Body weight 61.[address] [facility] 06-30-2020 08:03-0400 BP Diastolic 58 mm[Hg] [facility] 06-30-2020 08:03-0400 BP Systolic 110 mm[Hg] [facility] 06-30-2020 08:03-0400 Height 157.5 cm [facility] 06-24-2020 13:55-0400 BMI (Body Mass Index) 24.69 kg/m2 Avg Myrna Gal [id number] [facility] 06-24-2020 13:55-0400 Body Temperature 98.01 [degF] Avg Myrna Gal [id number] [facility] 06-24-2020 13:55-0400 Body weight 61.24 kg Avg Myrna Gal [id number] [facility] 06-24-2020 13:55-0400 BP Diastolic 60 mm[Hg] Avg Myrna Gal [id number] [facility] 06-24-2020 13:55-0400 BP Systolic 100 mm[Hg] Avg Myrna Gal [id number] [facility] 06-24-2020 13:55-0400 Height 157.5 cm Avg Myrna Gal [id number] [facility] 06-14-2020 11:01-0400 BMI (Body Mass Index) 25.06 kg/m2 Avg Myrna Gal [id number] [facility] 06-14-2020 11:01-0400 Body Temperature 99.19 [degF] Avg Myrna Gal [id number] [facility] 06-14-2020 11:01-0400 Body weight 62.14 kg Avg Myrna Gal [id number] [facility] 06-14-2020 11:01-0400 BP Diastolic 58 mm[Hg] Avg Myrna Gal [id number] [facility] 06-14-2020 11:01-0400 BP Systolic 100 mm[Hg] Avg Myrna Gal [id number] [facility] 06-14-2020 11:01-0400 Height 157.5 cm Avg Myrna Gal [id number] [facility] 05-12-2020 10:36-0400 BMI (Body Mass Index) 24.87 kg/m2 [facility] 05-12-2020 10:36-0400 Body Temperature 97.59 [degF] [facility] 05-12-2020 10:36-0400 Body weight 61.69 kg [facility] 05-12-2020 10:36-0400 Height 157.5 cm [facility] 04-28-2020 09:56-0400 BP Diastolic 66 mm[Hg] [facility] 04-28-2020 09:56-0400 BP Systolic 108 mm[Hg] [facility] 04-28-2020 09:56-0400 Pulse (Heart Rate) 70 /min [facility] 04-28-2020 09:56-0400 Pulse Oximetry 99 % [facility] 04-28-2020 09:56-0400 Respiratory Rate 16 /min [facility] 04-28-2020 09:25-0400 Body Temperature 98.1 [degF] [facility] 04-28-2020 06:31-0400 BMI (Body Mass Index) 24.87 kg/m2 [facility] 04-28-2020 06:31-0400 Body weight 61.69 kg [facility] 04-28-2020 06:31-0400 Height 157.5 cm [facility] 04-07-2020 15:32-0400 BMI (Body Mass Index) 24.95 kg/m2 [facility] 04-07-2020 15:32-0400 Body Temperature 98.1 [degF] [facility] 04-07-2020 15:32-0400 Body weight 61.87 kg [facility] 04-07-2020 15:32-0400 Height 157.5 cm [facility] 03-10-2020 10:09-0400 BMI (Body Mass Index) 25.42 kg/m2 [facility] 03-10-2020 10:09-0400 Body Temperature 97.11 [degF] [facility] 03-10-2020 10:09-0400 Body weight 63.05 kg [facility] 03-10-2020 10:09-0400 Height 157.5 cm [facility] 02-04-2020 09:50-0400 BMI (Body Mass Index) 25.02 kg/m2 [facility] 02-04-2020 09:50-0400 Body Temperature 99.1 [degF] [facility] 02-04-2020 09:50-0400 Body weight 62.05 kg [facility] 02-04-2020 09:50-0400 BP Diastolic 62 mm[Hg] [facility] 02-04-2020 09:50-0400 BP Systolic 116 mm[Hg] [facility] 02-04-2020 09:50-0400 Height 157.5 cm [facility] 02-04-2020 09:50-0400 Pulse (Heart Rate) 69 /min [facility] 02-04-2020 09:50-0400 Pulse Oximetry 99 % [facility] 02-01-2020 10:50-0400 BMI (Body Mass Index) 24.69 kg/m2 [facility] 02-01-2020 10:50-0400 Body Temperature 98.4 [degF] [facility] 02-01-2020 10:50-0400 Body weight 61.24 kg [facility] 02-01-2020 10:50-0400 BP Diastolic 68 mm[Hg] [facility] 02-01-2020 10:50-0400 BP Systolic 106 mm[Hg] [facility] 02-01-2020 10:50-0400 Height 157.5 cm [facility] 08-21-2018 12:49-0500 BMI (Body Mass Index) 22.86 kg/m2 [facility] 08-21-2018 12:49-0500 Body Temperature 98.29 [degF] [facility] 08-21-2018 12:49-0500 BP Diastolic 78 mm[Hg] [facility] 08-21-2018 12:49-0500 BP Systolic 116 mm[Hg] [facility] 08-21-2018 12:49-0500 Height 157.5 cm [facility] 08-21-2018 12:49-0500 Pulse (Heart Rate) 76 /min [facility] 08-21-2018 12:49-0500 Pulse Oximetry 99 % [facility] 08-21-2018 12:49-0500 Respiratory Rate 16 /min [facility] 08-21-2018 12:49-0500 Weight 56.7 kg [facility] Encounters Encounter Date Encounter Type Care Provider Facility Start: 07-19-2025 End: 07-19-2025 ambulatory Laureen Rasmussen [place] Start: 06-23-2025 End: 06-23-[address] Laureen Rasmussen MD Work Phone: -Laboratory Specimen Start: 06-23-2025 End: 06-23-[address] Fanta Zarate MD -Laboratory Specimen Work Phone: Start: 06-23-2025 End: 06-23-[address] Fanta Zarate MD -[facility] Work Phone: Start: 06-23-2025 End: 06-23-[address] Laureen Rasmussen MD Work Phone: -[facility] Start: 06-23-2025 End: 06-23-2025 ambulatory Fanta Zarate Facility:[facility] Start: 06-16-2025 End: 06-16-[address] Laureen aRsmussen MD Work Phone: -Laboratory Start: 06-16-2025 End: 06-16-2025 Patient encounter procedure Juliet GUTIERREZ -Laboratory Work Phone: Start: 06-16-2025 End: 06-16-2025 ambulatory Juliet Gall[place] Facility:[facility] [place] Start: 05-27-2025 End: 05-27-[address] Laureen Rasmussen MD Work Phone: -Laboratory Specimen Start: 05-27-2025 End: 05-27-2025 Patient encounter procedure Juliet Virk CN -Laboratory Specimen Work Phone: Start: 05-27-2025 End: 05-27-2025 Patient encounter procedure Juliet Virk CNM -[facility] Work Phone: Start: 05-27-2025 End: 05-27-[address] Laureen Rasmussen MD Work Phone: -[facility] Start: 05-27-2025 End: 05-27-2025 ambulatory Juliet Virk Facility:[facility] Start: 05-14-2025 Non-patient / Non-visit Beryl fuentes RN -[facility] Work Phone: Start: 05-14-2025 ambulatory Laureen [place] Facility :[facility] Start: 11-18-2024 End: 11-18-2024 ambulatory Laureen Grady Facility:[facility] Start: 11-18-2024 End: 11-18-2024 ambulatory Sagar CANTRELL Facility:[facility] Start: 04-22-2024 End: 04-22-2024 ambulatory MD NO PRIMARY CARE [facility] Start: 01-15-2024 Non-patient / Non-visit No Belinda kirby [facility] Physician [facility] Start: 01-13-2024 Non-patient / Non-visit No Belinda kirby [facility] Start: 01-13-2024 End: 01-15-2024 Evaluation and management of inpatient No Primary Care Physician [facility] Work Phone: Start: 01-13-2024 End: 01-13-2024 Patient encounter procedure No Primary Care Physician [facility] Work Phone: Start: 01-08-2024 End: 01-08-2024 ambulatory No Primary Care Physician [facility] Work Phone: Start: 01-08-2024 End: 01-08-2024 Patient encounter procedure No Primary Care Physician [facility] Work Phone: Start: 01-03-2024 Non-patient / Non-visit No Belinda kirby [facility] Physician [facility] Start: 01-02-2024 End: 01-02-2024 ambulatory No Primary Care Physician [facility] Work Phone: Start: 01-02-2024 End: 01-02-2024 Patient encounter procedure No Primary Care Physician [facility] Work Phone: Start: 12-23-2023 End: 12-23-2023 Patient encounter procedure No Primary Care Physician [facility] Work Phone: Start: 12-11-2023 End: 12-11-2023 ambulatory No Primary Care Physician [facility] Work Phone: Start: 12-11-2023 End: 12-11-2023 Patient encounter procedure No Primary Care Physician [facility] Specimen Work Phone: Start: 12-11-2023 End: 12-11-2023 Patient encounter procedure No Primary Care Physician [facility] Work Phone: Start: 11-28-2023 End: 11-28-2023 Patient encounter procedure No Primary Care Physician [facility] Work Phone: Start: 11-13-2023 End: 11-13-2023 Patient encounter procedure No Primary Care Physician [facility] Work Phone: Start: 10-17-2023 End: 10-17-2023 ambulatory No Primary Care Physician [facility] Work Phone: Start: 10-17-2023 End: 10-17-2023 Patient encounter procedure No Primary Care Physician [facility] Work Phone: Start: 09-19-2023 End: 09-19-2023 Patient encounter procedure No Primary Care Physician [facility] Work Phone: Start: 09-11-2023 End: 09-11-2023 Patient encounter procedure No Primary Care Physician [facility] Work Phone: Start: 08-19-2023 End: 08-19-2023 Patient encounter procedure No Primary Care Physician [facility] Work Phone: Start: 07-25-2023 End: 07-25-2023 Patient encounter procedure No Primary Care Physician [facility] Work Phone: Start: 07-11-2023 End: 08-06-2023 ambulatory No Primary Care Physician [facility] Work Phone: Start: 07-11-2023 End: 08-06-2023 Discharged Recurring No Primary Care Physician [facility] Start: 06-24-2023 End: 06-24-[address] Fanta Zarate Work Phone: [facility] Work Phone: Start: 06-24-2023 End: 06-24-[address] 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 Start: 06-18-2022 End: 06-18-2022 Patient encounter procedure [facility], Outpatients Start: 06-09-2022 End: 06-09-2022 ambulatory [facility] Work Phone: Start: 06-09-2022 End: 06-09-2022 Patient encounter procedure [facility], Outpatients Start: 06-07-2022 End: 06-07-2022 Patient encounter procedure [facility], Outpatients Start: 06-04-2022 End: 06-04-2022 ambulatory [facility] Work Phone: Start: 06-04-2022 End: 06-04-2022 [facility] Start: 05-19-2022 End: 06-06-2022 ambulatory [facility] Work Phone: Start: 05-19-2022 End: 06-06-2022 Discharged Recurring [facility] Start: 04-23-2022 End: 04-23-2022 Patient encounter procedure [facility], Outpatients Start: 03-27-2022 End: 03-27-2022 Patient encounter procedure [facility], Specimen Start: 11-17-2021 End: 11-17-2021 Office outpatient visit 15 minutes Parmjit Enrique MD Work Phone: [facility] Comment on above: Anxiety disorder, un specified type (Primary Dx); Dysthymia Start: 08-24-2021 End: 08-24-2021 Patient encounter status Parmjit Enrique MD Work Phone: [facility] Start: 08-24-2021 End: 08-24-2021 Periodic preventive med est patient 18-39 yrs Parmjit Enrique MD Work Phone: [facility] Comment on above: Routine general medi kayli examination at a health care facility (Primary Dx) Start: 02-26-2021 End: 02-26-2021 Emergency department patient visit Sagar Rodriguez MD Work Phone: [facility] Emergency Department Start: 02-08-2021 End: 02-09-2021 Subsequent hospital visit by physician Nehal Flower MD Work Phone: [facility] Start: 02-07-2021 End: 02-07-2021 Subsequent care visit Mady Amor MD Work Phone: [facility] BIAZZI NITRATOR OPERATOR Comment on above: Encounter for electi ve induction of labor (Primary Dx); Anxiety; Family history of clotting disorder; Uterine contractions during Start: 02-06-2021 End: 02-06-2021 Subsequent hospital visit by physician Nehal Flower MD Work Phone: [facility] Start: 02-02-2021 End: 02-02-2021 Subsequent hospital visit by physician Raymon Madera MD Work Phone: [facility]TR[facility] Start: 02-02-2021 End: 02-02-2021 Subsequent care visit Raymon Madera MD Work Phone: [facility] BIAZZI NITRATOR OPERATOR Comment on above: Encounter for superv ision of normal first in third trimester (Primary Dx); Uncertain lie of fetus, single or unspecified fetus; Anxiety; 37 weeks gestation of Start: 01-26-2021 End: 01-26-2021 Subsequent care visit Raymon Madera MD Work Phone: [facility] BIAZZI NITRATOR OPERATOR Comment on above: 36 weeks gestation o f (Primary Dx); Family history of clotting disorder Start: 01-12-2021 End: 01-12-2021 Follow-up encounter [facility]ita [facility]acon Work Phone[facility] NITRATOR OPERATOR Comment on above: Family history of cl otting disorder Start: 12-26-2020 End: 12-26-2020 Follow-up encounter Raymon Madera Work Phone: [facility] BIAZZI NITRATOR OPERATOR Comment on above: Family history of cl otting disorder Start: 12-12-2020 End: 12-12-2020 Follow-up encounter Rosita Chacon Work Phone: [facility] BIAZZI NITRATOR OPERATOR Comment on above: High-risk , young primigravida in third trimester (Primary Dx); Anxiety in , antepartum; 30 weeks gestation of Start: 12-07-2020 End: 12-07-2020 Subsequent hospital visit by physician Raymon Madera Work Phone: [facility] Start: 11-28-2020 End: 11-28-2020 Follow-up encounter Sandra Mchugh Work Phone: [facility] BIAZZI NITRATOR OPERATOR Comment on above: High-risk , young primigravida in third trimester (Primary Dx); H/O migraine during ; Anxiety in , antepartum; headache in third trimester; 28 weeks gestation of Start: 11-24-2020 End: 11-25-2020 Emergency department patient visit Bartolo Zheng Work Phone: [facility] Start: 10-24-2020 End: 10-24-2020 Follow-up encounter Raymon Madera Work Phone: [facility] BIAZZI NITRATOR OPERATOR Comment on above: Encounter for superv ision of normal first in second trimester (Primary Dx); 23 weeks gestation of Start: 10-24-2020 End: 10-24-2020 Subsequent hospital visit by physician Raymon Madera Work Phone: [facility] Start: 10-03-2020 End: 10-03-2020 Follow-up encounter Sandra Mchugh Work Phone: [employer] BIAZZI NITRATOR OPERATOR Comment on above: Encounter for superv ision of normal first in second trimester (Primary Dx); 20 weeks gestation of Start: 09-05-2020 End: 09-05-2020 Follow-up encounter Raymon Madera Work Phone: [employer] BIAZZI NITRATOR OPERATOR Comment on above: Encounter for superv ision of normal first in second trimester (Primary Dx); Alopecia; 16 weeks gestation of Start: 09-05-2020 End: 09-05-2020 Subsequent hospital visit by physician Raymon Madera Work Phone: [facility] Start: 08-01-2020 End: 08-01-2020 Follow-up encounter Raymon Madera Work Phone: [employer] BIAZZI NITRATOR OPERATOR Comment on above: Encounter for superv ision of normal first in first trimester (Primary Dx); 11 weeks gestation of Start: 06-30-2020 End: 06-30-2020 Follow-up encounter Rosita Chacon Work Phone: [employer] BIAZZI NITRATOR OPERATOR Comment on above: Encounter for superv ision of normal first in first trimester (Primary Dx); 6 weeks gestation of Start: 06-30-2020 End: 06-30-2020 Subsequent hospital visit by physician Raymon Madera Work Phone: [facility] Start: 06-24-2020 End: 06-24-2020 Office outpatient visit 5 minutes Raymon Madera Work Phone: [employer] BIAZZI NITRATOR OPERATOR Comment on above: 10 weeks gestation o f (Primary Dx); Family history of clotting disorder Start: 06-14-2020 End: 06-14-2020 Clinical Support Encounter Raymon Madera Work Phone: [employer] BIAZZI NITRATOR OPERATOR Comment on above: Missed period (Prima ry Dx); Clotting disorder Start: 05-12-2020 End: 05-12-2020 Postop follow up visit related to original px Ceci Che Work Phone: [facility] Comment on above: S/P excision of gang lion cyst (Primary Dx) Start: 04-28-2020 End: 04-28-2020 Subsequent hospital visit by physician Gerri Hicks Work Phone: [facility] Comment on above: Ganglion of right wr ist Start: 04-07-2020 End: 04-07-2020 Patient encounter procedure Ceci Che Work Phone: [facility] Comment on above: Ganglion cyst (Prima ry Dx) Start: 03-10-2020 End: 03-10-2020 Subsequent hospital visit by physician Ceci Che Work Phone: [facility] [place] [facility] Comment on above: Arrived Start: 03-10-2020 End: 03-10-2020 Office outpatient new 45 minutes Ceci Che Work Phone: [facility] Comment on above: Ganglion cyst of wri st, right (Primary Dx) Start: 02-04-2020 End: 02-04-2020 Initial preventive medicine new pt age 18-39yrs Parmjit Enrique Work Phone: [facility] Comment on above: Routine general medi kayli examination at a health care facility (Primary Dx); Hx of cold sores Start: 02-01-2020 End: 02-01-2020 Initial preventive medicine new pt age 18-39yrs Sandra Mchugh Work Phone: [employer] BIAZZI NITRATOR OPERATOR Comment on above: Encounter for gyneco logical examination without abnormal finding (Primary Dx); Screening for cervical cancer; Screening for STDs (sexually transmitted diseases); Encounter for surveillance of contraceptive pills Start: 12-17-2018 Patient encounter procedure Facility:[id number] Start: 12-16-2018 End: 12-19-2018 Evaluation and management of inpatient Nodr No Doctor Assigned Facility:[facility] Start: 12-16-2018 End: 12-17-2018 Patient encounter procedure Love Barnhart Facility:[facility] Start: 12-16-2018 Patient encounter procedure Facility:[id number] Start: 12-15-2018 End: 12-15-2018 Emergency department patient visit DANIELA WALTON [facility] Start: 08-21-2018 Encounter for genera l adult medical examination without abnormal findings [facility] Start: 08-21-2018 End: 08-21-2018 Patient encounter procedure MADY FARRELL [facility] Start: 08-21-2018 End: 08-21-2018 Initial preventive medicine new pt age 18-39yrs Mady Farrell Work Phone: [facility] Comment on above: Oral herpes simplex infection; Impetigo; Well adult exam; Nasal septal deviation Start: 08-12-2018 Patient encounter procedure [facility] Encounter for genera l adult medical examination without abnormal findings [facility] Procedures Date Procedure Procedure Detail Performing Clinician [...] HCV Quant by PCR testing - HCVPCR #[id number] Non Reactive: < 0.8 Equivocal: >/= 0.8 to < 1.0 Reactive: >/= 1.0The CDC requires that a reactive/equivocal HCV antibody result be sent out for confirmation. HCV Quant by PCR testing. Start: 06-16-[address] Laureen Rasmussen MD Work Phone: Comment on above: Test Ordered: [id number] TSH Receptor Antibody (TBII)TSH Receptor Antibody (TBII) 0.7 U/L ES Reference Range: .Reference Range:Antibody Titer:<1.0 U/L = Negative1.1 - 1.5 U/L = Equivocal>1.5 U/L = PositivePerformed at: [facility] [id number] [place], [place] [id number] Director: Isrrael Grajeda MD, Phone: [phone] at: [facility] [place], [place] [id number] Director: Federico Tavarez PhD, Phone: [phone] Start: 06-16-[address] Laureen [...] Activity Detail Author Start: 12-12-2030 Tetanus vaccination [facility] Start: 06-16-2025 Procedure [facility] Start: 01-15-2024 Patient discharge [facility] Start: 01-15-2024 [facility] Start: 01-14-2024 Documentation procedure [facility] Start: 01-14-2024 Administration of medication [facility] Start: 01-14-2024 Application of ice collar, cap or bag [facility] Start: 01-14-2024 Catheterization of vein [facility] Start: 01-14-2024 Introduction of urin vicente catheter [facility] Start: 01-14-2024 Measuring intake and output [facility] Start: 01-14-2024 Notification of physician [facility] Start: 01-14-2024 Procedure discontinued [facility] Start: 01-14-2024 Provision of activit y privileges [facility] Start: 01-14-2024 Vital signs measurements [facility] Start: 01-14-2024 End: 01-14-2024 [facility] Start: 01-14-2024 Consultation [facility] Start: 01-13-2024 Admission procedure [facility] Start: 01-13-2024 Verification routine [facility] Start: 01-02-2024 Nonstress test [facility] Start: 01-02-2024 Obstetric monitoring [facility] Start: 01-02-2024 Vital signs measurements [facility] Start: 01-02-2024 [facility] Start: 01-02-2024 Patient discharge [facility] Start: 01-02-2024 [facility] Start: 06-24-2023 Liquid based cervica l cytology screening [facility] Start: 06-22-2022 Patient discharge [facility] Work Phone: Start: 06-22-2022 Consultation [facility] Work Phone: Start: 06-21-2022 Administration of medication [facility] Work Phone: Start: 06-21-2022 Application of ice collar, cap or bag [facility] Work Phone: Start: 06-21-2022 Catheterization of vein [facility] Work Phone: Start: 06-21-2022 Introduction of urin vicente catheter [facility] Work Phone: Start: 06-21-2022 Measuring intake and output [facility] Work Phone: Start: 06-21-2022 Notification of physician [facility] Work Phone: Start: 06-21-2022 Procedure discontinued [facility] Work Phone: Start: 06-21-2022 Provision of activit y privileges [facility] Work Phone: Start: 06-21-2022 Vital signs measurements [facility] Work Phone: Start: 06-21-2022 [facility] Work Phone: Start: 06-21-2022 Admission procedure [facility] Work Phone: Start: 06-09-2022 Patient discharge [facility] Work Phone: Start: 06-07-2022 Nonstress test [facility] Work Phone: Start: 06-07-2022 Obstetric monitoring [facility] Work Phone: Start: 06-07-2022 Vital signs measurements [facility] Work Phone: Start: 06-07-2022 [facility] Work Phone: Start: 06-07-2022 Iv infusion hydratio n each additional hour HYDRATE IV INFUSION ADD-ON [facility] Work Phone: Start: 06-07-2022 Iv infusion hydratio n initial 31 min-1 hour [facility] Work [facility] Start: 06-07-2022 Patient discharge [facility] Work Phone: Start: 05-21-2022 Tetanus vaccination TETANUS EVERY 10 YR [facility] Start: 04-23-2022 Nonstress test [facility] Work Phone: Start: 04-23-2022 End: 04-23-2022 [facility] Work Phone: Start: 04-23-2022 Obstetric monitoring [facility] Work Phone: Start: 04-23-2022 Vital signs measurements [facility] Work Phone: Start: 04-23-2022 Iv infusion hydratio n each additional hour HYDRATE IV INFUSION ADD-ON [facility] Work Phone: Start: 04-23-2022 Iv infusion hydratio n initial 31 min-1 hour [facility] Work Phone: Start: 04-23-2022 Catheterization of vein [facility] Work Phone: Start: 04-23-2022 Patient discharge [facility] Work Phone: Start: 02-08-2022 GONORRHEA SCREEN GONORRHEA SCREEN [facility] Start: 02-08-2022 Screening for Chlamy galo trachomatis CHLAMYDIA SCREEN [facility] Start: 06-30-2021 GONORRHEA SCREEN GONORRHEA SCREEN [facility] Start: 06-30-2021 Screening for Chlamy galo trachomatis CHLAMYDIA SCREEN [facility] Start: 06-07-2021 Influenza vaccination INFLUENZ A VACCINE (Season Ended) [facility] Start: 02-09-2021 End: 02-09-2021 Follow-up encounter 02/09/2021 Follow Up Visit BIAZZI NITRATOR OPERATOR Raymon Madera MD [address] [place] [address] [facility] BIAZZI NITRATOR OPERATOR Start: 02-02-2021 End: 02-02-2022 US OB LIMITED/NERISSA [facility] Comment on above: Expected: 02/02/2021 , Expires: 02/02/2022 1 Occurrences starti ng 02/02/2021 until 02/02/2021 Start: 02-02-2021 End: 02-02-2021 Follow-up encounter 02/02/2021 Follow Up Visit BIAZZI NITRATOR OPERATOR Rosita Chacon, STAVE CUTTER-AIR PUMPER [id number] [place] [address] [facility] BIAZZI NITRATOR OPERATOR Start: 01-31-2021 Screening for malign ant neoplasm of cervix CERVICAL CANCER SCREENING DISCUSSION [facility] Start: 01-26-2021 End: 01-26-2021 Follow Up Visit 01/26/2021 Follow Up Visit BIAZZI NITRATOR OPERATOR Mady Amor MD [address] [place] [address] [facility] BIAZZI NITRATOR OPERATOR Start: 01-12-2021 End: 01-12-2021 Follow Up Visit 01/12/2021 Follow Up Visit BIAZZI NITRATOR OPERATOR Rosita Chacon, STAVE CUTTER-AIR PUMPER [id number] [place] [address] [facility] BIAZZI NITRATOR OPERATOR Start: 12-26-2020 End: 12-26-2020 Follow Up Visit 12/26/2020 Follow Up Visit BIAZZI NITRATOR OPERATOR Mady Amor MD [address] [place] [address] [facility] BIAZZI NITRATOR OPERATOR Start: 12-12-2020 End: 12-12-2020 Follow Up Visit 12/12/2020 Follow Up Visit BIAZZI NITRATOR OPERATOR Rosita Chacon, STAVE CUTTER[employer]AIR PUMPER [address] [place] [id number] [facility] BIAZZI NITRATOR OPERATOR Start: 12-07-2020 End: 12-07-2020 Appointment 12/07/2020 Appointment Ultrasound Raymon Madera MD [address] [id number] [phone] [facility] Start: 11-28-2020 End: 11-28-2020 Follow Up Visit 11/28/2020 Follow Up Visit BIAZZI NITRATOR OPERATOR Sandra Mchugh, STAVE CUTTER[employer]AIR PUMPER [address] [address] [facility] BIAZZI NITRATOR OPERATOR Start: 10-24-2020 End: 10-24-2020 Appointment [facility] Start: 10-03-2020 End: 10-03-2020 Appointment [facility] Start: 09-05-2020 End: 09-05-2020 Appointment [facility] Start: 09-05-2020 End: 09-05-2021 TSH W/FT4 REFLEX TSH W/FT4 REFLEX Lab Routine Alopecia Expected: 09/05/2020, Expires: 09/05/2021 [facility] Comment on above: Expected: 09/05/2020 , Expires: 09/05/2021 Start: 08-01-2020 End: 08-01-2020 Follow Up Visit 08/01/2020 Follow Up Visit BIAZZI NITRATOR OPERATOR Raymon Madera MD [address] [id number] [phone] [facility] BIAZZI NITRATOR OPERATOR Start: 06-30-2020 End: 06-30-2021 CHLAMYDIA/GONOCOCCUS, JIMMY CHLAMYDIA/GONOCOCCUS, JIMMY Microbiology Routine Encounter for supervision of normal first in first trimester 6 weeks gestation of Expected: 06/30/2020, Expires: 06/30/2021 [facility] Comment on above: Expected: 06/30/2020 , Expires: 06/30/2021 Start: 06-30-2020 End: 06-30-2020 Appointment [facility] Start: 06-24-2020 End: 06-24-2021 Narrative [Interpretation] Study observation general US US OB DATING ABDOMINAL < 14WEEKS Imaging Routine 10 weeks gestation of Expected: 06/24/2020, Expires: 06/24/2021 [facility] Comment on above: Expected: 06/24/2020 , Expires: 06/24/2021 Start: 06-24-2020 End: 06-24-2020 Clinical Support Encounter 06/24/2020 Clinical Support Encounter BIAZZI NITRATOR OPERATOR Raymon Madera MD [address] [place] [phone] [facility] BIAZZI NITRATOR OPERATOR Start: 06-07-2020 Influenza vaccination [facility] [employer] Start: 05-19-2020 End: 05-19-2020 Office Visit 05/19/2020 Office Visit Orthopaedics Ceci Che PA-C [address] [place] [address] [phone] [facility] Start: 05-12-2020 End: 05-12-2020 Office Visit 05/12/2020 Office Visit Orthopaedics Ceci Che PA-C [address] [place] [address] [phone] [facility] Start: 04-28-2020 End: 04-28-2020 Procedure Pass [facility] Comment on above: Ganglion of right wr ist EXCISION SOFT TISSUE FINGER HAND Start: 04-25-2020 End: 04-25-2020 Lab Encounter 04/25/2020 Lab Encounter Clinical Pathology/Laboratory Medicine Gerri Hicks MD [address] [place] [address] [facility] Start: 04-07-2020 End: 04-07-2020 Office Visit 04/07/2020 Office Visit Orthopaedics Ceci Che [facility] [address] [place] [address] [phone] [facility] Start: 04-04-2020 End: 04-04-2020 Pre-Operative Nurse Assessment 04/04/2020 Pre-Operative Nurse Assessment [facility] Pre Admission Testing Start: 03-10-2020 End: 04-06-2020 Radiography of hand [facility] Comment on above: Expected: 03/10/2020 , Expires: 04/06/2020 1 Occurrences starti ng 03/10/2020 until 03/10/2020 Start: 02-04-2020 End: 02-04-2020 Office Visit 02/04/2020 Office Visit Family Medicine Parmjit Enrique MD [address] [place] [address] [phone] [facility] Start: 02-01-2020 End: 01-31-2021 [facility] CYTOLOGY-JEWEL BEARING POLISHER, LIQUID BASED [facility] CYTOLOGY-JEWEL BEARING POLISHER, LIQUID BASED Cytology Routine Screening for cervical cancer Screening for STDs (sexually transmitted diseases) Expected: 02/01/2020, Expires: 01/31/2021 [facility] Comment on above: Expected: 02/01/2020 , Expires: 01/31/2021 Start: 2018 Screening for malign ant neoplasm of cervix CERVICAL CANCER SCREENING DISCUSSION [facility] Start: 2016 Third diphtheria, te tanus and acellular pertussis (DTaP) vaccination TDAP (ADULT) [facility] Start: 2015 Tetanus vaccination TETANUS [facility] Start: 2013 COVID-19 VACCINE (1) COVID-19 VACCIN E (1) [facility] Start: 2013 Screening for Chlamy galo trachomatis CHLAMYDIA SCREEN [facility] Start: 2012 HIV screening HIV SCREENING DISCUSSION [facility] Start: 2012 Vaccination for josh n papillomavirus HPV VACCINES (1 - Female 3-dose series) [facility] Start: 2010 HIV screening HIV SCREENING DISCUSSION [facility] Start: 2009 COVID-19 VACCINE (1) COVID-19 VACCIN E (1) [facility] Start: 2008 Vaccination for josh n papillomavirus [facility] Start: 2002 COVID-19 VACCINE (1) COVID-19 VACCIN E (1) [facility] Start: 1997 GONORRHEA SCREEN GONORRHEA SCREEN [facility] Start: 1997 Screening for malign ant neoplasm of cervix [facility] Bacteria identified Cx Nom (U) [facility] BETA STREP, VAGINAL SCREEN BETA STREP, VAGINAL SCREEN Microbiology Routine 36 weeks gestation of 01/26/2021 3:12 PM EDT [facility] CBC W Auto Different ial panel - Blood [facility] Chlamydia deoxyribonucleic acid detection [facility] CHLAMYDIA/GONOCOCCUS, JIMMY CHLAMY GALO/GONOCOCCUS, JIMMY Microbiology STAT 02/08/2021 10:30 PM EDT [facility] Complete blood count with white cell differential, automated CBC, EDIF, PLATELET Lab Routine 28 weeks gestation of 11/28/2020 4:02 PM EST [facility] anatomy study [facility] Group B Streptococcu s Culture Group B Streptococcus Culture [facility] Work Phone: HEPATITIS B SURFACE ANTIGEN HEPATITIS B SURFACE ANTIGEN Lab Routine 10 weeks gestation of 06/24/2020 5:36 PM EDT [facility] Hepatitis C antibody measurement [facility] PAP IG, CT-NG, RFX H PV ASCU PAP IG, CT-NG, RFX HPV ASCU LAB SEND OUTS Routine 02/01/2020 10:54 AM [facility] Patient Education Kick Counts ED False Labor OB Triage: Return to Hospital or Notify Physician if you Experience: [facility] Work Phone: Patient referral [facility] Work Phone: Procedure [facility] Radiography of hand XR HAND RIGH T 3+ VIEWS Imaging Routine Ganglion cyst of wrist, right 03/10/2020 10:26 AM [facility] Reagin Ab RPR Ql (S) [facility] Rubella IgG measurement [facility] RUBELLA IMMUNE STATU S IGG ANTIBODY RUBELLA IMMUNE STATUS IGG ANTIBODY Lab Routine 10 weeks gestation of 06/24/2020 5:35 PM [facility] Serologic test for syphilis [facility] T4 free measurement [facility] Thyroid stimulating hormone measurement [facility] Thyroperoxidase Ab [Units/volume] in Serum or Plasma [facility] Transvaginal obstetr ic ultrasonography [facility] Ultrasonography in f irst trimester [facility] [facility] Ul[facility]ound scan for growth [facility] US OB LIMITED/NERISSA US OB LIMITED/ NERISSA Imaging Routine Uncertain lie of fetus, single or unspecified fetus 02/02/2021 2:44 PM [facility] VARICELLA IGG AB (IM M STATUS) VARICELLA IGG AB (IMM STATUS) Lab Routine 10 weeks gestation of 06/24/2020 5:35 PM [facility] [place] Immunizations Immunization Date Immunization Notes Care Provider Fa cility 09-03-2024 influenza, seasonal, injectable, preservative free Dr. Laureen Rasmussen MD Work Phone: [facility] 11-28-2023 tetanus toxoid, redu amish diphtheria toxoid, and acellular pertussis vaccine, adsorbed No Primary Care Physician [facility] 09-23-2023 influenza, injectabl e, quadrivalent, preservative free No Primary Care Physician [facility] 09-24-2022 influenza, injectabl e, quadrivalent, preservative free Dr. Fanta Zarate Work Phone: [facility] 09-07-2021 Covid ([employer]) [facility] 07-11-2021 influenza, injectabl e, quadrivalent, preservative free Dr. Fanta Zarate Work Phone: [facility] 07-11-2021 influenza, seasonal, injectable [facility] Work Phone: 07-11-2021 influenza, seasonal, injectable, preservative free Dr. Laureen Rasmussen MD Work Phone: [facility] 07-11-2021 Seasonal, quadrivale nt, recombinant, injectable influenza vaccine, preservative free Dr. Laureen Rasmussen MD Work Phone: [facility] 12-12-2020 diphtheria, tetanus toxoids and acellular pertussis vaccine, unspecified formulation [facility] 12-12-2020 tetanus toxoid, redu amish diphtheria toxoid, and acellular pertussis vaccine, adsorbed; Translations: [TDAP VACCINE >10YO 0.5ML IM] [facility] 12-25-2017 varicella virus vaccine [facility] 07-09-2017 meningococcal ACWY vaccine, unspecified formulation [facility] 07-09-2017 meningococcal polysaccharide (groups A, C, Y and W-135) diphtheria toxoid conjugate vaccine (MCV4P) Dr. Laureen Rasmussen MD Work Phone: [facility] 07-09-2017 varicella virus vaccine [facility] 04-14-2013 hepatitis A vaccine, pediatric/adolescent dosage, [address] Laureen Rasmussen MD Work Phone: [facility] 04-08-2013 hepatitis A vaccine, pediatric/adolescent dosage, 2 dose schedule [facility] 05-21-2012 hepatitis A vaccine, pediatric/adolescent dosage, 2 dose schedule [facility] 05-21-2012 meningococcal ACWY vaccine, unspecified formulation [facility] 05-21-2012 meningococcal polysaccharide (groups A, C, Y and W-135) diphtheria toxoid conjugate vaccine (MCV4P) Dr. Laureen Rasmussen MD Work Phone: [facility] 05-21-2012 tetanus toxoid, redu amish diphtheria toxoid, and acellular pertussis vaccine, adsorbed [facility] 09-16-2009 novel [id number], preservative-free, injectable Dr. Laureen Rasmussen MD Work Phone: [facility] 06-02-2003 diphtheria, tetanus toxoids and acellular pertussis vaccine [facility] 06-02-2003 poliovirus vaccine, inactivated [facility] 06-04-2001 diphtheria, tetanus toxoids and acellular pertussis vaccine [facility] 05-08-2000 haemophilus influenz ae type b vaccine, conjugate unspecified formulation [facility] 05-08-2000 haemophilus influenz ae type b vaccine, PRP-T conjugate Dr. Laureen Rasmussen MD Work Phone: [facility] 05-08-2000 measles, mumps and rubella virus vaccine [facility] 01-15-2000 diphtheria, tetanus toxoids and acellular pertussis vaccine [facility] 01-15-2000 haemophilus influenz ae type b vaccine, conjugate unspecified formulation [facility] 01-15-2000 haemophilus influenz ae type b vaccine, PRP-T conjugate Dr. Laureen Rasmussen MD Work Phone: [facility] 01-15-2000 hepatitis B vaccine, pediatric or pediatric/adolescent dosage [facility] 01-15-2000 poliovirus vaccine, inactivated [facility] 09-20-1999 diphtheria, tetanus toxoids and acellular pertussis vaccine [facility] 09-20-1999 measles, mumps and rubella virus vaccine [facility] 09-20-1999 poliovirus vaccine, inactivated [facility] 09-20-1999 trivalent poliovirus vaccine, live, oral Dr. Laureen Rasmussen MD Work Phone: [facility] 06-01-1998 diphtheria, tetanus toxoids and acellular pertussis vaccine [facility] 06-01-1998 haemophilus influenz ae type b conjugate and Hepatitis B vaccine Dr. Laureen Rasmussen MD Work Phone: [facility] 06-01-1998 haemophilus influenz ae type b vaccine, conjugate unspecified formulation [facility] 06-01-1998 hepatitis B vaccine, pediatric or pediatric/adolescent dosage [facility] 06-01-1998 poliovirus vaccine, inactivated [facility] 06-01-1998 trivalent poliovirus vaccine, live, oral Dr. Laureen Rasmussen MD Work Phone: [facility] 1995 hepatitis B vaccine, pediatric or pediatric/adolescent dosage [facility] Payers Date Payer Category Payer Unknown [id number] 2020 Unknown [facility] xxxxxxxxxxxx 2020-Present xxxxxxxxxxxx [id number] 2020 Unknown [id number] 2018 Self-pay 2018 Unknown 2017 Unknown [id number] 1997 Unknown [id number] [id number] 1997 Unknown [id number] [id number] 1997 Unknown [id number] 2.16.840.1.578334.3.579.2.356 1997 Unknown [id number] 2.16.840.1.679731.3.579.2.717 1997 Unknown [id number] 2.16.840.1.499319.3.579.2.717 1997 Unknown [id number] 2.16.840.1.706790.3.579.2.479 Unknown [employer] RCIAL MISCELLANEOUS Effective for all dates xxxxxx [id number] [id number] Unknown [id number] Unknown [id number] Unknown [id number] [id number] Unknown [id number] [id number] Unknown [id number] [id number] Unknown [id number] 2.16.840.1.248798.3.579.2.462 Unknown [id number] [id number] Unknown [id number] 2.16.840.1.038976.3.579.2.462 Unknown [id number] 2.16.840.1.958965.3.579.2.462 Unknown [id number] 2.16.840.1.045800.3.579.2.462 Unknown [id number] [id number] Social History Date Type Detail Facility Start: 11-09-2018 End: 05-14-2025 Tobacco smoking status NHIS Never smoker [facility] Start: 08-12-2018 Alcohol Comment wine-occassions [facility] Start: 1995 Sex Assigned At Not on file O [facility] Start: 02-01-2020 End: 02-04-2020 Alcohol intake Current drinker of alcohol (finding) [facility] Start: 02-04-2020 End: 10-24-2020 History SDOH Alcohol Std Drinks 1 [facility] Start: 02-04-2020 History SDOH Alcohol Binge 5 [facility] Start: 02-01-[address] [facility] Exposure to SARS-CoV -2 (event) Not sure [facility] Start: 02-01-2020 End: 03-10-2020 Tobacco use and exposure Never used [facility] Start: 04-04-2020 End: 10-24-2020 History SDOH Alcohol Frequency 4 [facility] Start: 04-04-2020 End: 10-24-2020 History SDOH Alcohol Binge 99 [facility] Exposure to SARS-CoV -2 (event) Yes [facility] Start: 04-28-2020 End: 10-24-2020 History SDOH IPV Fear 2 [facility] Start: 06-14-2020 End: 08-24-2021 Alcohol intake Ex-drinker (finding) [facility] Start: 06-14-2020 End: 10-24-2020 History SDOH Social Connections Living [facility] Start: 04-29-2020 [facility] Start: 1995 Sex Assigned At Female W [facility] [place] Start: 06-21-2022 End: 01-13-2024 Tobacco smoking status NHIS Unknown if ever smoked [facility] Sex Female [facility] Goals Date Patient Goal Desired Activity /State Functional Status Date Assessment Result Facility 06-22-2022 Functional status Activity Ability Indepe ndent [facility] Work Phone: Mental Status Date Assessment Result Facility 06-22-2022 Cognitive function Appropriate;Andrea linraes [facility] Work Phone: Clinical Notes 01-26-2021 to 06-23-2025 Note Date & Type Note Facility 06-23-2025 Progress note [facility] 06-23-2025 Progress note Note Date/Time June 23, 2025 2:46pm [facility] [address], [address] [place] [address] OFFICE VISIT Date of Service: 06/23/25 MR#: [id number] Acct: [id number] Name: NAYELI HERNANDEZ Rep #: [id number] : 1995 Provider: Dr. 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 Is patient in pain?: No Allergies No Known Allergies Allergy (Verified 06/23/25 14:14) Medications ?Medication ?Instructions ?Recorded ?Confirmed ?Type qofktlqq-qpi-Se-FA 1 mg 1 tab PO DAILY pregna [...] Family history of autistic disorder Surgical History [place] teeth extracted History of surgery Family History Grandmother Breast cancer, Onset Age: 65 maternal Aunt Breast cancer, Onset Age: 60 Maternal Sister Thyroid disorder Mother Thyroid disorder Hypertension Sister Thyroid disorder Father Hypertension Social History adopted: No household members: spouse and children number of children: 3 current occupational status: employed 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 History of depres cecilia, currently acute May 27, 2025 2:53pm History of shoulder dystocia in prior , currently acute May 27 2:53pm Hx of oligohydramnios in [place] , currently acute 2024 2:53pm acute May 27, 025 2:53pm Supervision of high-risk acute May 27 2:53pm [facility] Work Phone: 1(662) 602-880108-21-2025 Evaluation note* Diagnosis Onset Date Resolution Status [...] of high-risk acute June 23, 2025 1:52pm [facility] Work Phone: 1(134) 876-975608-21-2025 Progress [facility] [address] [place] [address], [address] [place] [address] OFFICE VISIT Date of Service: 05/27/25 MR#: [id number] Acct: [id number] Name: NAYELI HERNANDEZ Rep #: [id number] : 1995 Provider: CHICO Virk Age/Sex: 29/F Location: [facility] [place] [facility] Status: Signed Intake Vital Signs 11/18/24 08:47 04/27/25 14:36 05/27/25 14:55 Height 5 ft 2 in 5 ft 2 in 5 ft 2 in Weight: 164 lb BMI 29.9 BP 106/71 Intake Visit Reasons: *EST* NOB LMP 03/20, PRANAY 12/25 Chief Complaint: New 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 Is patient in pain?: No Allergies No Known Allergies Allergy (Verified 05/27/25 14:54) Medications ?Medication ?Instructions ?Recorded ?Confirmed ?Type yulgzjqp-wab-Ne-FA 1 mg 1 tab PO DAILY pregna ncy 04/23/22 05/27/25 History tablet valacyclovir 1 gram tablet 2,000 mg (2 x 1 gram) PO BI D PRN 03/24/25 05/27/25 Rx (Valtrex) cold sore #4 tabs Last Menstrual Period: 03/20/25 PFSH PFSH Medical History History of shoulder dystocia Anxiety depression Seasonal allergies Family history of autistic disorder Surgical History [place] teeth extracted History of surgery Family History Grandmother Breast cancer, Onset Age: 65 maternal Aunt Breast cancer, Onset Age: 60 Maternal Sister Thyroid disorder Mother Thyroid disorder Hypertension Sister Thyroid disorder Father Hypertension Social History adopted: No household members: spouse and children number of children: 3 current occupational status: employed 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 Daniela Santos 01/14/24 Merelyn 37 live - full term 6lbs 11oz Female epidural [facility] JV Ericka Delivery Date: 02/12/21 Last [...] (Rh) Sensitized, Pulmonary (e.g.,TB,Asthma), Drug/latex allergies/reactions, Breast, Product Responsibility Liaison surgery, Anesthetic complications, History of abnormal pap, [...] Monitoring, Signs and Symptoms of Preeclampsia and [employer] ROS Const Reports system reviewed and [...] Signature: Date (if applicable) CC: ~ [facility]08-21-2025 Progress note Author Juliet Virk [facility] Note Date/Time May 27, 2025 3: 20pm [facility] [address], [address] [place] [address] OFFICE VISIT Date of Service: 05/27/25 MR#: [id number] Acct: [id number] Name: NAYELI HERNANDEZ Rep #: [id number] : 1995 Provider: CHICO Virk Age/Sex: 29/F Location: [facility] [place] [facility] Status: Signed Intake Vital Signs 11/18/24 08:47 04/27/25 14:36 05/27/25 14:55 Height 5 ft 2 in 5 ft 2 in 5 ft 2 in Weight: 164 lb BMI 29.9 BP 106/71 Intake Visit Reasons: *EST* NOB LMP 03/20, PRANAY 12/25 Chief Complaint: New 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 Is patient in pain?: No Allergies No Known Allergies Allergy (Verified 05/27/25 14:54) Medications ?Medication ?Instructions ?Recorded ?Confirmed ?Type jbfrtjjm-xhy-Ps-FA 1 mg 1 tab PO DAILY pregna ncy 04/23/22 05/27/25 History tablet valacyclovir 1 gram tablet 2,000 mg (2 x 1 gram) PO BI D PRN 03/24/25 05/27/25 Rx (Valtrex) cold sore #4 tabs Last Menstrual Period: 03/20/25 PFSH PFSH Medical History History of shoulder dystocia Anxiety depression Seasonal allergies Family history of autistic disorder Surgical History [place] teeth extracted History of surgery Family History [...] 1-2 times per week duration: 15-30 minutes/day tigre/judaism: Druze seatbelt use: always do you feel safe at home: Yes additional social history: : Ericka Sequeira, PT [employer] History 4 Elective abortions 0 Hx Para [...] - full term 7#11oz Female ep idural [facility] Dr. Daniela Burchatt 01/14/24 Merelyn 37 live - full term 6lbs 11oz Female epidural [facility] JV Ericka Delivery Date: 02/12/21 Last [...] (Rh) Sensitized, Pulmonary (e.g.,TB,Asthma), Drug/latex allergies/reactions, Breast, Product Responsibility Liaison surgery, Anesthetic complications, History of abnormal pap, [...] Cosigner Signature: Date (if applicable) CC: ~ [employer] Work Phone: 1(944) 878-258608-02-2025 Evaluation note* Diagnosis Onset Date Resolution Status Admit Date Luis Felipe's disease acute Aug2024 2:53pm History of depres cecilia, currently acute May 27, 2025 2:53pm History of shoulder dystocia in prior , currently acute May 27 2:53pm Hx of oligohydramnios in [place] , currently acute Au 2024 2:53pm acute May 27 025 2:53pm Supervision of high-risk acute May 27 2:53pm [facility] [employer] [facility] Work Phone: 1(305) 939-344804-10-2024 Progress note Author Liza Park [facility] January 15, 2024 8:19am Note Date/Time January 15, 2024 8:1 9am [facility] Medical Records Department [address] [place] [address] Progress Note - OBGYN 01/15/24 0817 MR#: [id number] Acct: [id number] Name: NAYELI HERNANDEZ Rep #:[id number] : 1995 28 From: Liza Park CNM PCP: Care Physician,No Primary Status :ADM IN Location: [place] [address] Subjective Subjective Patient doing well without complaints. [...] Cosigner Signature (if applicable): CC: ~ Signed [facility] Work Phone: 1(900) 286-985804-09-2024 Discharge summary Author Radha Villalobos [facility] January 14, 2024 1:05am Note Date/Time January 14, 2024 1:05 am [facility] Medical Records Department [address] [place] [address] Instructions for Home/Discharge Instructions 01/14/24103 MR#: [id number] Acct: [id number] Name: NAYELI HERNANDEZ Rep #:[id number] : [...] Up With: Radha Jin DO When: Call [phone] to make an appointment with your doctor [...] CC: No Primary Care Physician ~ Signed [facility] Work Phone: 1([phone]) 570-110104-09-2024 Procedure [facility] 01-13-2024 Progress note Author Radha Villalobos [facility] January 13, 2024 5:22pm Note Date/Time January 13, 2024 5:22 pm [facility] Medical Records Department [address] [place] [address] Progress Note 01/13/24 1720 MR#: [id number] Acct: [id number] Name: NAYELI HERNANDEZ Rep #:[id number] : 1995 28 From: Radha Jin DO PCP: Care Physician,No Primary Status :ADM IN Location: [address] Progress Note pt is status post one dose of cytotec and consents to either a mcgovern balloon or arom. current tracing: FHT: Moderate variability reactive no decelerations category I tracing [place]: q2-3 min Contractions cx: internally is 3-4/ external 2/70/-2, membranes ruptured with clear fluid return A/P: pt wants epidural before starting pitocin 01/13/241721 <Electronically signed by Radha Jin DO> Radha Louise Signature (if applicable): CC: ~ Signed [facility] Work Phone: 1(722) 715-290004-08-2024 History and physical note Author Fanta Zarate [facility] January 13, 2024 2:28pm Note Date/Time January 13, 2024 2:28 pm [facility] Medical Records Department [address] [place] [address] History & Physical Exam 01/13/24 1428 MR#: [id number] Acct: [id number] Name: NAYELI HERNANDEZ Rep #:[id number] : 1995 28 From: Fanta freeman MD PCP: Care Physician,No Primary Status :ADM IN Location: [place] [address] History and Physical Vital Signs 01/07/2414:50 01/12/2411:31 01/12/2411:33 01/13/2412:01 Height 5 ft 2 in 5 ft 2 in 5 ft 2 in Weight: 164 lb BMI 29.9 BP 116/75 Intake Visit Reasons: 37 WK OB PER JV Marine 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: No Is patient in pain?: No Allergies No Known Allergies Allergy (Verified 01/13/24 12:46) Medications ysfhujww-gvg-Fh-FA 1 mg tablet 1 tab PO DAILY [...] Vaginal delivery Surgical History History of surgery [place] teeth extracted Family History GrandmotherBreast cancer, Onset Age: 65 maternalAunt Breast cancer, Onset Age: 60 Maternal Social History adopted: No household members: spouse and children number of children: 2 current occupational status: employed 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 epidural [facility] Dr. Daniela Santos Delivery Date: 02/12/21 Last Updated by: Huma Dietrich IOL- failure to progress, head stuck on hip Delivery Date: 06/21/22 Last Updated by: Huma Dietrich IOL-early labor 2 wks, shoulder dystocia HPI 37 WK OB PER JV Details: NAYELI HENRANDEZ is a 28 year old who presents [...] any complications: none I have reviewed the [facility] and made any clinically relevant updates. 01/13/24 1428 <Electronically signed by Fanta Zarate MD> Cosigner Signature (if applicable): CC: Dr. Fanta Zarate MD; No Primary Care Physician~ Signed [facility] Work Phone: 1([phone]) 659-302009-18-2023 NotePap Smear Specimen AdequacySeptember 2022 10:16amComment.Satisfactory for evaluation. Endocervical and/or squamous metaplasticcells (endocervical component)are present.[facility] A#[id number] Hospital [place]Comment on above:Satisfactory for evaluation. Endocervical and/or squamous metaplasticcells (endocervical component)are present.06-24-2023 NotePap Smear Specimen AdequacySeptember 2022 10:16amComment.Satisfactory for evaluation. Endocervical and/or squamous metaplasticcells (endocervical component)are present.[facility] A#[id number] [facility]Comment on above:Satisfactory for evaluation. Endocervical and/or squamous metaplasticcells (endocervical component)are present.06-24-2023 NotePap Smear Specimen AdequacySeptember 2022 9:16amComment.Satisfactory for evaluation. Endocervical and/or squamous metaplasticcells (endocervical component)are present.[facility] A#[id number] Hospital DaytonComment on above:Satisfactory for evaluation. Endocervical and/or squamous metaplasticcells (endocervical component)are present.11-17-2021 History of Present illness Narrative* Parmjit Enrique MD - 11/17/2021 10:50 AM EST Follow Up Visit Nayeli Hernandez [id number] 1995 11/17/2021 Chief Complaint Patient presents with Anxiety History of Present Illness: Nayeli Hernandez is a 26 y.o. female presenting for follow up of Pt herefor a follow up: Pt was started on zoloft due to anxiety issues; while on the zoloft she had some really bad lows; has been in [facility] for counseling (needs a referral sent [...] Laterality: Right; Surgeon: Gerri Hicks MD; Location: [facility] GAL OR EGD DIAGNOSTIC 2019 WISDOM [...] 2 g, Rfl: 11 ergocalciferol 1.25 MG (35183 UT) capsule, Take 50,000 Units by mouth [...] Use Authorization (EUA) for the qualitative detection [id number] nucleic acid. No images are attached to [...] HEALTH Parmjit Enrique MD documented [facility]Reg[facility]11-18-2021 History of Present illness Narrative* [...] daily. 2 g 11 ergocalciferol 1.25 MG (03079 UT) capsule Take 50,000 Units by mouth [...] or bloody stools. No urinary tract symptoms. [employer] ROS: no breast pain or new or [...] return annually or prn documented in this encounterRegional [facility] Center05-23-2021 Emergency department Note* Sagar Rodriguez MD - 02/26/2021 10:02 PM EDT Emergency Department Report [facility] EMERGENCY DEPARTMENT Service Date:.02/26/21 PCP: [...] Laterality: Right; Surgeon: Gerri Hicks MD; Location: [facility] OR EGD DIAGNOSTIC 2019 WISDOM TEETH EXTRACTION [...] and Family: Three times a week Attends [employer] Services: Not on file Active Member of [...] information. . . Sagar Rodriguez MD 02/26/21 2248 documented in this encounterRegional [facility] Center05-06-2021 Miscellaneous Notes* Nursing Notes - [...] office with Dr. Amor. documented in this encounterRegional Medical Center05-05-2021 History of Present illness Narrative* Isabel Virk RN - 02/08/2021 10:45 PM EDT Pt arrives on unit 38+3, c/o leaking of fluid since about 1730 this evening, pt also reports ctx q 2-3 mins x 2 days. +FM denies VB. Pt denies complications with this but does report GBS+ status. Monitors placed, VS obtained, SVE, and swabs obtained. [facility] History of Present illness Narrative* Mady Amor MD - 02/07/2021 10:20 AM EDT [facility] 25 y.o. at 38w2d Anxiety, GBS+ -VB, -LOF, -Ctx, +FM She reports painful contractions since yesterday. She is now having back pain, as well. Today: Cervix closed - IOL scheduled for 1899 on 5/9/21 starting with cervical ripening. No future appointments. documented in this [facility]05-04-[facility]21 Procedure note* Mady Amor MD - 02/07/2021 10:20 AM EDT Associated Order(s): VT NON-STRESS TEST Procedure(s): VT NON-STRESS TEST Pre-Procedure Diagnose(s): Uterine contractions during Post-Procedure Diagnose(s): Uterine contractions during Non-stress Test Gestational age: 38w2d Indication: Rule out labor Baseline: 135 bpm 15x15s: present Variability: moderate Decelerations: absent Contractions: q1-2min Duration >20 minutes Comments: REACTIVE 02/07/21 Mady Amor MD documented in this [facility]05-03-2021 Miscellaneous Notes* Nursing Notes - Karla Krishnan [...] provide a urine sample. documented in this [facility]05-03-2021 Hospital Discharge instructions* Instructions* Karla Krishnan RN - 02/06/2021 [place] Contractions: Care Instructions Your Care Instructions Christian Padilla contractions prepare your uterus for labor. Think of them as a warm-up exercise that your body does. You may begin to feel them between the 28th and 30th weeks of your . But they start as early as the 20th week. [place] contractions usually occur more often during [...] Where can you learn more? Go to http://www.[employer].osu.edu/patiented. Enter Z402 in the search box to learn more about 'Christian Padilla Contractions: Care Instructions.' Interested in seeing a video go to [email or web address].Clerts![email or web address]/videolibrary to see all video content. Current as of: July 14, 2020 Content Version: 12.8 [employer]. Care instructions adapted under license by your healthcare professional. If you have questions about a medical condition or this instruction, always ask your healthcare professional. [employer], [employer] disclaims any warranty or liability for your [...] you aren't sure, call your doctor or outreach and education social worker.As your labor progresses, check in with your doctor or outreach and education social worker about when to come back to the [...] off your contractions. Ask your partner, labor lacrosse coach, or l tacker for a massage. Shoulder and low back massage during contractions may ease your pain. Strong massage of the back muscles (counterpressure) during contractions may help relieve the pain of back labor. Tell your labor lacrosse coach exactly where to push and how [...] Where can you learn more? Go to http://www.[email or web address].[email or web address].edu/patiented. Enter W539 in the search box to learn more about 'Early Stage of Labor at Home: Care Instructions.' Interested in seeing a video go to [email or web address].osu.edu/videolibrary to see all video content. Current as of: July 14, 2020 Content Version: 12.8 [employer]. Care instructions adapted under license by your healthcare professional. If you have questions about a medical condition or this instruction, always ask your healthcare professional. [employer] disclaims any warranty or liability for your use of this information. documented in this [facility]04-29-[facility]21 History of Present illness Narrative* Rosita Chacon [...] movement. Denies any concerns documented in this [facility]04-22-[facility]21 History of Present illness Narrative* Mady Amor MD - 01/26/2021 8:30 AM EDT [facility] [place] 25 y.o. at 36w4d Anxiety -VB, -LOF, -Ctx, +FM Today: GBS collected. Cervix closed. No issues - Return OB visit in 1 week. Future Appointments Date Time Provider Department Center 02/02/2021 1:30 PM ADALBERTO Maldonado 043OG [facility] * Keeley Alan LPN - 01/26/2021 8:30 [...] N/A 36w4d GBS pending [facility]* Diagnosis 36 weeks gestation of - Primary state, incidental Family history of clotting disorder Family history of other blood disorders [facility] Diagnosis Encounter for supervision of normal first in third trimester- Primary Supervision of normal first Uncertain lie of fetus, single or unspecified fetus Anxiety Anxiety state, unspecified 37 weeks gestation of state, incidental [facility] Diagnosis Uncertain lie of fetus, single or unspecified fetus [facility]* Diagnosis Encounter for elective induction of labor- Primary Anxiety Anxiety state, unspecified Family history of clotting disorder Family history of other blood disorders Uterine contractions during [facility]* Diagnosis Dysuria- Primary [facility]* Diagnosis Routine general medical examination at a health care facility- Primary [facility]* Diagnosis Anxiety disorder, unspecified type- Primary Dysthymia Dysthymic disorder documented in this encounter [facility] noteNo assessment information availableWKindred [facility] Work Phone: Evaluation note* Diagnosis Onset Date Resolution Status [facility] Work Phone: Evaluation note* Diagnosis Onset Date Resolution Status acute [facility] Work Phone: Evaluation note* Diagnosis Onset Date Resolution Status acute acute acute acute Vaginal delivery [facility] Work Phone: Evaluation note* Diagnosis Onset Date Resolution Status H/O depression, currently acute History of shoulder dystocia acute acute Supervision of high-risk acute [facility] Work Phone: evaluation note* Diagnosis Onset Date Resolution Status H/O depression, currently acute History of shoulder dystocia acute acute Supervision of high-risk acute H/O depression, currently acute History of shoulder dystocia acute acute Supervision of high-risk acute [facility] Work Phone: evaluation note* Diagnosis Onset Date [...] dystocia acute acute Supervision of high-risk acute [facility] Work Phone: evaluation note* Diagnosis Onset Date [...] dystocia acute acute Supervision of high-risk acute [facility] Work Phone: evaluation note* Diagnosis Onset Date [...] trimester acute acute Supervision of high-risk acute [facility] Work Phone: Evaluation note* Diagnosis Onset Date [...] trimester resolved resolved Supervision of high-risk resolved [facility] Work Phone: Hospital Discharge instructions* Instructions* Beryl [...] away. 2016 - May 14, 2019, The [facility]. This handout is for informational purposes only. Talk with your doctor or healthcare team if you have any questions about your care. For more health information call the [employer] Information at [phone] or email: [email or web address]. Signs of Labor Mucus plug Some [...] effaced. 2016 - May 14, 2019, The [facility]. This handout is for informational purposes only. Talk with your doctor or healthcare team if you have any questions about your care. For more health information call the [employer] Information at [phone] or email: [email or web address]. [facility]* Attachments The following attachments cannot be sent through Care Everywhere. * Dysuria (Angolan) [facility] Consultation (Routine) - New Request Specialty Diagnoses / Procedures Referred By Nancy jasmine Referred To Contact Diagnoses Anxiety disorder, unspecified type Dysthymia Parmjit Enrique MD [address] [place] [address] Referral ID Status Reason Start Date Expiration Date V isits Requested Visits Authorized [id number] New Request 11/21/2021 12/16/2022 1 1 [facility] for referral (narrative)No reason for referral information availableOur [facility] Work Phone: Instructions * Patient Instructions* [...] Instructions Your Care Instructions Herpes gingivostomatitis (say ZXT-zpc-awq-syus-fqm-WA-tus) is a viral infection, caused by the [...] that may help. Follow-up care is a diaen part of your child's treatment and safety. [...] your doctor if your child can take fxqely-bwb-rdxyisc medicine. Do not give aspirin to anyone [...] Log into your personal health record on https://[employer].Koudai and enter Y555 in the Education box to learn more about Herpes Gingivostomatitis in Children: Care Instructions. Current as of: February 15, 2017 Content Version: 11.6 3264-2451 [employer]. Care instructions adapted under license by your healthcare professional. If you have questions about a medical condition or this instruction, always ask your healthcare professional. [employer] disclaims any warranty or liability for your [...] you are older than 45 and are -Indonesian or have a father or brother who got prostatecancer when he was younger than 65. When should you call for help? Watch closely for changes in your health, and be sure to contact your doctor if you have any problems or symptoms that concern you. Where can you learn more? Log into your personal health record on https://VTMt.Koudai and enter P072 in the Education box to learn more about Well Visit, Ages 18 to 50: Care Instructions. Current as of: February 19, 2017 Content Version: 11.6 2153-6322 [employer]. Care instructions adapted under license by your healthcare professional. If you have questions about a medical condition or this instruction, always ask your healthcare professional. [employer] disclaims any warranty or liability for your [...] you are older than 45 and are -Indonesian or have a father or brother who got prostatecancer when he was younger than 65. When should you call for help? Watch closely for changes in your health, and be sure to contact your doctor if you have any problems or symptoms that concern you. Where can you learn more? Log into your personal health record on https://VTMt.Koudai and enter P072 in the Education box to learn more about Well Visit, Ages 18 to 50: Care Instructions. Current as of: February 19, 2017 Content Version: 11.6 9549-2610 [employer]. Care instructions adapted under license by your healthcare professional. If you have questions about a medical condition or this instruction, always ask your healthcare professional. [employer] disclaims any warranty or liability for your use of this information. in this encounter* Patient Instructions* Qing Loev LPN - 06/14/2020 11:00 AM EDT 1 documented in this encounter History of Present Illness * Mady Farrell MD - 08/21/2018 1:18 PM EST Subjective Patient ID: Nayeli Sullivan is a 22 y.o. female. [facility] establish care. Patient is new to [...] tomato based products. She has tried several vgdl-ogh-qgxsldo topical preparations. The following portions of the [...] AM EDT New Patient Visit Nayeli Hernandez [id number] 1995 02/04/2020 Chief Complaint Patient presents with Establish Care History of Present Illness: Nayeli Hernandez is a 24 y.o. 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 documented in this encounter* Rosita Chacon APRN-AIR PUMPER - 06/30/2020 9:00 AM EDT Pt doing [...] She has recently decreased her hours to clinical partner. Denies any other concerns at this [...] file Gets together: Not on file Attends temple service: Not on file Active member of [...] culture performed due to age - MYRNA CYTOLOGY-JEWEL BEARING POLISHER, LIQUID BASED; Future 3. Screening for STDs (sexually transmitted diseases) - MYRNA CYTOLOGY-JEWEL BEARING POLISHER, LIQUID BASED; Future 4. Encounter for surveillance [...] sleeping better, using benadryl. 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 At [...] Amor MD - 12/26/2020 1:30 PM EDT [facility] Ms. Nayeli Hernandez is a [...] Department Center 01/12/2021 9:00 AM Rosita Chacon APRN-AIR PUMPER 043OG [facility] Mady Amor MD documented in this encounter* Mady Amor MD - 01/12/2021 9:00 AM EDT [facility] [place] 25 y.o. at 34w4d Anxiety -VB, -LOF, -Ctx, +FM Today: No issues - GBS at next visit - Return OB visit in 10 days. Future Appointments Date Time Provider Department Center 01/26/2021 8:30 AM [facility] * Qing Love LPN - 01/12/2021 9:00 [...] No June 21, 2022 7:44am Power of Dry Cure Worker No June 7:44am Advance Directive Response Recorded Date/ Time Living Will No June 21, 2022 6:44am Power of Dry Cure Worker No June 6:44am Advance Directive Response Recorded Date/ Time Name of Medical Power of Dry Cure Worker ericka hernandez January 13, 2024 2:43pm Living Will Yes January 13, 2024 2:43pm Power of Dry Cure Worker Yes January 12 2:43pm Reason for Referral Status Reason Specialty Diagnoses / Procedures Referred By Contact Referred To Contact New Request Diagnoses Ganglion cyst of wrist, right Procedures XR HAND RIGHT 3+ VIEWS Ceci Che, GIDEONC [address] [id number] Status Reason Specialty Diagnoses / Procedures Referred By Contact Referred To Contact Auth Not Needed Ultrasound Diagnoses 10 weeks gestation of Procedures US OB DATING ABDOMINAL < 14WEEKS Mady Amor MD [address] [place], [place] [phone] [facility] [address] [place], [place] [phone] Status Reason Specialty Diagnoses / Procedures Referre d By Contact Referred To Contact Closed Ultrasound Diagnoses 10 weeks gestation of Procedures US OB DATING ABDOMINAL < 14WEEKS Mady Amor MD [address] [facility] [address] [place], [place] [phone] [facility] [address] [place], [place] [phone] Status Reason Specialty Diagnoses / Procedures Referre d By Contact Referred To Contact Closed Diagnoses 20 weeks gestation of Procedures US OB ANATOMY Sandra Mchugh, STAVE CUTTER-AIR PUMPER [address] [place], [place] [phone] Status Reason Specialty Diagnoses / Procedures Referred By Contact Referred To Contact New Request Diagnoses Uncertain lie of fetus, single or unspecified fetus Procedures US OB LIMITED/NERISSA Rosita Chacon, STAVE CUTTER-AIR PUMPER [id number] [place] [id number] Discharge Instructions * Instructions* Lois Cash RN [...] free to contact your physician by calling [phone] ([phone]). If it is after hours you can contact the wardrobe image consultant doctor by calling [facility] at [phone]. Prescription refills will only be done during [...] next business day for an appointment at [phone] ([phone]) documented in this encounter* Attachments The following attachments cannot be sent through Care Everywhere. * Migraine Headache (Angolan) documented in this encounter Chief Complaint and [...] June 23, 2025 1:52pm History of depression, adrryl oliveira June 23, 2025 1:52pm History of [...] RIGHT 3+ VIEWS Ceci Che, GIDEONC [address] [place] [address] Reason Comments Cyst Pre-operative Evaluation Status Reason [...] Mady Amor MD [address] [place] [address] [facility] [address] [place] [address] Reason Comments 11.1 weeks Reason Comments 16w1d, sciatic pain, loosing hair. Reason Comments 20w1d Reason Comments Annual Exam ACCOUNT RECEIVABLE CLERK Last pap 12/2018 a [facility] [...] of Procedures US OB ANATOMY Sandra Mchugh, STAVE CUTTER-AIR PUMPER [address] [place] [address] Reason Comments 34w4d, patient denie s any problems Reason Comments 36.4 Reason Comments 37.4 Status Reason Specialty Diagnoses / Procedures Referred By Contact Referred To Contact New Request Diagnoses Uncertain lie of fetus, single or unspecified fetus Procedures US OB LIMITED/NERISSA Rosita Chacon, STAVE CUTTER-AIR PUMPER [id number] [place] [address] Reason Comments Contractions Reason Comments 38w2d, Contractions [...] section and content) DATE CREATED AUTHOR 11/25/2018 [facility] DATE CREATED AUTHOR AUTHOR'S ORGANIZ ATION 12/15/2018 [facility] DATE CREATED AUTHOR AUTHOR'S ORGANIZ ATION 12/20/2018 [facility] DATE CREATED AUTHOR AUTHOR'S ORGANIZ ATION 12/23/2018 [facility] DATE CREATED AUTHOR AUTHOR'S ORGANIZ ATION 09/12/2019 [facility] DATE CREATED AUTHOR AUTHOR'S ORGANIZ ATION 08/25/2021 [facility] DATE CREATED AUTHOR AUTHOR'S ORGANIZ ATION 11/23/2021 [facility] DATE CREATED AUTHOR AUTHOR'S ORGANIZ ATION 04/26/2024 [facility] DATE CREATED AUTHOR AUTHOR'S ORGANIZ ATION 07/20/2025 [facility] Kristina Dumont RN - 11/25/2020 12:05 AM Bartolo Lozano MD - 11/24/2020 9:55 PM EST ED Notes (unrecognized secti on and content) Patient discharged in stable condition. Discharge instructions given. Patient verbalizes understanding and has no questions at this time. Emergency Department Report [facility] EMERGENCY MEDICINE Service Date:.11/24/20 PCP: Parmjit Enrique [...] Laterality: Right; Surgeon: Gerri Hicks MD; Location: [facility] OR EGD DIAGNOSTIC 2019 WISDOM TEETH EXTRACTION [...] and Family: Three times a week Attends Episcopalian Services: Not on file Active Member of [...] CARE 105 (H) 70 - 100 MG/DL Batch Maker 202,682 URINALYSIS, MACRO Result Value Ref Range [...] moderate improvement in her symptoms. OB and JEWEL BEARING POLISHER nurse did a heart tones and recording [...] above information. . Bartolo Zheng MD 11/24/20 6800 documented in this encounter Care Teams (unrecognized sec tion and content) Traffic Workforce Representative Relationship Specialty Start Date End Date Parmjit Enrique MD [address] [place] [address] PCP - General Family Medicine 02/01/20 Traffic Workforce Representative Relationship Specialty Start Date End Date Parmjit Enrique MD [address] [place] [address] PCP - General Family Medicine 02/01/20 Team [...] Provider, Refer ring Provider Active Megan Love ACCOUNT RECEIVABLE CLERK, ACCOUNT RECEIVABLE CLERK-C Attending Provider Active Team Status: Inactive Member [...] BE BASED ON THE PRIMARY CLINICAL RECORDS. [employer] [facility]. provides no warranty or guarantee of the accuracy or completeness of information in this document.
--- NOTE | 2025-07-25 19:31 | EDS_ITS ---
HPI History of Present Illness Chief Complaint: Lower Extremity Injury Narrative Narrative: Chief complaint and HPI: 29-year-old female who is 17 weeks presents for evaluation of right posterior calf pain. Patient states that she recently traveled to the [facility]. States shortly after started having right posterior calf pain. Denies any significant swelling. Denies any fever, chills, shortness of breath, chest pain. Concern for DVT. Review of systems: See HPI Medications: As listed on the chart Allergies: As listed on the chart PFSH: Per chart Vital signs: As listed on the chart. Reviewed. Physical exam: Gen: A&O x3, NAD Head: Normocephalic, atraumatic Eyes: No sclera icterus, conjunctiva clear ENT: Moist mucous membranes Neck: Trachea midline CV: RRR, no murmurs Resp: Lungs CTA BL, no w/r/c Musc: Full ROM, no deformity, mild tenderness to palpation of the right posterior calf without any swelling or ecchymosis, DP/PT pulse +2, compartments soft, good capillary refill, sensation intact Skin: Warm, dry Neuro: Alert, oriented, grossly intact Psych: Cooperative, appropriate mood and affect [facility] Medical History History of shoulder dystocia Anxiety depression Seasonal allergies Family history of autistic disorder Home Medications ?Medication ?Instructions ?Recorded ?Last Taken ?Type szlhuqgz-czr-Ug-FA 1 mg 1 tab PO DAILY pregna ncy 04/23/22 01/12/24 21:00 History tablet valacyclovir 1 gram tablet 2,000 mg (2 x 1 gram) PO BI D PRN 03/24/25 Unknown Rx (Valtrex) cold sore #4 tabs Allergy/AdvReac Type Severity Reaction Status Date / Time No Known Allergies Allergy Verified 07/25/25 14:28 Family History Grandmother Breast cancer, Onset Age: 65 maternal Aunt Breast cancer, Onset Age: 60 Maternal Sister Thyroid disorder Mother Thyroid disorder Hypertension Sister Thyroid disorder Father Hypertension Surgical History [place] teeth extracted History of surgery Social History adopted: No household members: spouse and children number of children: 3 current occupational status: employed 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 & [employer] current occupational exposures/hazards: No pets and animals: Yes pets and animals: dog(s) history of recent travel: Yes ( - April 2025) out of state: Yes out of country: No sexually active: Yes Smoking Status: Never smoker second hand exposure: No alcohol intake: current alcohol intake frequency: a few times a month details: Not while substance use type: does not use well-balanced diet: daily or most days caffeine: Yes Type: carbonated beverages Number of servings: 1 eating out: 1-3 times/week during the past year weight has: remained stable what type of physical activity do you participate in: walking frequency: 1-2 times per week duration: 15-30 minutes/day tigre/yazidism: Quaker seatbelt use: always do you feel safe at home: Yes additional social history: : Tom Sequeira, PT Advertising Dispatch Clerk EXAM Physical Exam Const Vital Signs: 07/25/25 16:16 Temperature 98.5 F Temperature Source Oral Pulse Rate 85 Respiratory Rate 16 Blood Pressure 120/72 Blood Pressure Mean 88 Pulse Ox 100 Oxygen Delivery Method Room Air MDM MDM MDM Narrative Medical decision making narrative: 29-year-old female who is 17 weeks presents for evaluation of right posterior calf pain. Patient states that she recently traveled to the [facility]. States shortly after started having right posterior calf pain. Denies any significant swelling. Denies any fever, chills, shortness of breath, chest pain. Differential diagnosis includes but is not limited to DVT versus muscle strain. I do not have vascular ultrasound available to rule out DVT. Patient does have a high risk of DVT given her with recent travel and pain. I contacted her SURGICAL ASSISTANT CERTIFIED, Dr. Hubert Hussein and patient was discussed. Agrees with subcutaneous Lovenox and ultrasound outpatient. Patient was updated of all the results and the plan. She confirmed understanding. Follow-up with PCP and SURGICAL ASSISTANT CERTIFIED. Return precautions explained. Patient stable to discharge home. Impression: 1. Right posterior calf pain 2. Concern for DVT 3. Second trimester Discharge Plan Triage Chief Complaint: Lower Extremity Injury ED Provider: Isael Rodriguez Dx/Rx/DC Orders Prescriptions: No Action 1 mg Tablet 1 tab PO DAILY valacyclovir [Valtrex] 1 gram tablet 2,000 mg PO BID PRN (Reason: cold sore) Qty: 4 0RF Primary Care Provider: Laureen Rasmussen Referrals: Laureen Rasmussen MD [Primary Care Provider, Internal Medicine] Print Language: Gabonese
[2025-07-25 19:38] VITALS: BP 117/74; PULSE 77; RESP 16; TEMP 36.9; O2SAT 100
== END 2025-07-25 19:45 | disposition home or self-care (01) ==
PROVIDERS: Emergency Provider Surgery; PCP Internal Medicine; Visit Provider Surgery
DX: O99.891 Other specified diseases and conditions complicating pregnancy (principal); M79.661 Pain in right lower leg; Z3A.17 17 weeks gestation of pregnancy
CPT/HCPCS: 99282

== ENCOUNTER → 2025-07-26 | Outpatient (CLI) | payer MEDICAID, SELFPAY ==
--- NOTE | 2025-07-26 12:57 | VDLE_ITS ---
Reason For Study Reason For Study: Pain RIGHT LEFT GSV is normal. CFV is compressible, spontaneous, phasic, competent, CFV is compressible, spontaneous, phasic, competent and demonstrates normal augmentation. and demonstrates normal augmentation. FV is compressible, spontaneous, phasic, competent and demonstrates normal augmentation. POP V is compressible, spontaneous, phasic, competent and demonstrates normal augmentation. T/P Trunk is compressible. PTV is compressible. RT PerV is compressible. Procedure This is a venous duplex using B-mode, color flow and spectral Doppler. Exam performed in department. A preliminary report was called and/or faxed to Laureen Rasmussen MD. VL/Venous Duplex US, Unilateral Interpretation Summary Deep veins of the right lower extremity are patent and compressible segmentally . There is no evidence of right lower extremity deep vein thrombosis. The right great saphenous vein appears patent a nd compressible segmentally. Ordering Physician: Isael Rodriguez Referring Physician: Isael Rodriguez Performed By: Martha rFancis RVT
== END | disposition home or self-care (01) ==
LOC: CVS 12:57
PROVIDERS: PCP Internal Medicine; Referring Provider Surgery; Visit Provider Surgery
DX: M79.604 Pain in right leg (principal)
CPT/HCPCS: 93971

== ENCOUNTER → 2025-08-20 | Outpatient (CLI) | payer MEDICAID, SELFPAY ==
--- NOTE | 2025-08-20 12:26 | US_ITS ---
PROCEDURE: OB ANATOMY SCAN 08/20/2025 REASON FOR EXAM: ANATOMY SCAN TECHNIQUE: Procedure Code: USOBANATOMY Modality: US Procedure: OB ANATOMY SCAN COMPARISON: None FINDINGS Number: 1 Position: Breech. Variable presentation. Placental Position: Anterior and not low-lying Placental Abnormalities: No evidence of previa. DIMENSIONS: Biparietal Diameter: 4.7 cm: 20 weeks and 2 days: 36 percentile/ Head Circumference: 17.8 cm: 20 weeks and 2 days: 28 percentile/ Abdominal Circumference: 14.9 cm: 20 weeks and 1 day: 30 percentile/ Femur Length: 3.2 cm: 20 weeks and 1 day: 25.3 percentile/ ESTIMATED WEIGHT: 336 g plus/-50 g ESTIMATED WEIGHT PERCENTILE (24+ weeks): 25 ESTIMATED GESTATIONAL AGE: Baseline: 20 weeks and 4 days By Ultrasound: 20 weeks ESTIMATED DATE OF DELIVERY: Baseline: January 03, 2026 By Ultrasound: January 07, 2026 BIOPHYSICAL ASSESSMENT: Amniotic Fluid Volume: 3.4 cm Amniotic Fluid Index: Within normal limits. (8-24 cm normal range) Cardiac Motion: 104 beats per minute (average) Trunk and Limb Motion: Present. MATERNAL ANATOMY: Adnexa: Both maternal ovaries are visualized and unremarkable. Cervical Length (if measured): 5.2 cm ANATOMY: Spine: Unremarkable Cranium: Unremarkable Cerebellum: Unremarkable Cisterna Magna: Unremarkable Cavum Septum Pellucidi: Unremarkable Lateral Ventricles: Unremarkable Choroid Plexus: Unremarkable Midline Falx: Unremarkable Nuchal Fold: Unremarkable Upper Lip: Unremarkable Heart: Unremarkable Ventricular Outflow Tracts: Unremarkable Stomach: Unremarkable Kidneys: Unremarkable Bladder: Unremarkable Umbilical Cord: Unremarkable Extremities: Unremarkable US/OB Anatomy Scan IMPRESSION: Single live intrauterine gestation with a mean gestational age of 20 weeks. Reading Location: [id number]
== END | disposition home or self-care (01) ==
LOC: US 12:25
PROVIDERS: PCP Internal Medicine; Referring Provider Obstetrics & Gynecology; Visit Provider Obstetrics & Gynecology
DX: Z34.90 Encounter for supervision of normal pregnancy, unspecified, unspecified trimester (principal)
CPT/HCPCS: 76805